=== PATIENT | female | born 1965 | race Caucasian/White ===

== ENCOUNTER → 2017-12-13 13:15 | Outpatient (CLI) | payer OTHER, SELFPAY ==
--- NOTE | 2017-12-10 | IMM_PTH ---
PATIENT: LINDA BUSH LOC: [facility] U#:[id number] AGE/SX: 60/F ROOM: RE12/13/[address]: Dr. Perico Mccarty MD : 1965 BED: DIS: SPEC #: [id number] RECD: 12/14/17 14:10 STATUS: LAURIE REQ #: [id number] JAYCEE: 12/10/17 00:[address]: Perico Mccarty DEPT: IMMUNOHISTOCHEMISTRY RECD BY: Crissy Palacios ENTERED: 12/14/17 14:11 SP TYPE: IMMUNO OTHR DR: Dr. Charlie Farah MD Tissues: Stomach, NOS Procedures: H Pylori (initial) PHYSICIAN & INSTITUTION [place] [address] SPECIMEN INFORMATION: Tissue Source: Antral biopsy Clinical Info: Z79.899, Z12.11, K21.9 Specimen Number: [id number] CPT code: 18715 METHODOLOGY: Deparaffinized sections of prefer/formalin-fixed tissue or PAP/DQ stained slides are incubated with monoclonal/polyclonal antibodies/oligonucleotide probes. Localization is made via biotin free immunoperoxidase method. Appropriate controls are performed and reacted as expected. Results on target cell population are indicated in the following table: RESULTS: ANTIBODY / CLONE RESULT H Pylori (polyclonal) negative These tests were developed and their performance characteristics determined by [facility]. They may not have been cleared or approved by the U.S. Food and Drug Administration. The FDA has determined that such clearance or approval is not necessary. INTERPRETATION: Antral biopsy: Negative for Helicobacter pylori organisms. AM:marty 12/15/17
--- NOTE | 2017-12-10 09:00 | GASB_PTH ---
PATIENT: LINDA BUSH LOC: [facility] U#:[id number] AGE/SX: 60/F ROOM: RE12/13/[address]: Dr. Perico Mccarty MD : 1965 BED: DIS: SPEC #: [id number] RECD: 12/13/17 12:11 STATUS: LAURIE ALARCONSusie #: [id number] JAYCEE: 12/10/17 09:[address]: Perico Mccarty DEPT: SURGICAL PATHOLOGY RECD BY: Crissy Palacios ENTERED: 12/13/17 15:31 SP TYPE: Gastric Bx OTHR DR: Dr. Charlie Farah MD Tissues: Gastric mucous membrane Procedures: Surgery Specimen Level IV HEADER OPERATION: EGD with biopsy PRE-OP DIAGNOSIS: Z79.899, Z12.11, K21.9 TISSUE SUBMITTED: Antral biopsy for H & H MICROSCOPIC DIAGNOSIS Gastric antrum, biopsy: Chronic active gastritis with moderate to severe chronic gastritis. AM:marty 12/14/17 COMMENT The results of immunohistochemistry for Helicobacter pylori will be reported separately ([id number]). MICROSCOPIC DESCRIPTION Slides are reviewed. GROSS DESCRIPTION Received in fixative is one container labeled with the patient's name and designated antral biopsy. The specimen consists of one irregular fragment of light avendano soft tissue that measures 0.7 x 0.3 x 0.1 cm. The specimen is totally submitted in one cassette. / SJ:rg 12/13/17 TC:2 CPT: 23031
== END ==
PROVIDERS: Visit Provider Surgery
DX: Z12.11 Encounter for screening for malignant neoplasm of colon (principal); K21.9 Gastro-esophageal reflux disease without esophagitis; Z79.899 Other long term (current) drug therapy
CPT/HCPCS: 88305; 88342

== ENCOUNTER → 2019-07-19 16:43 | Outpatient (CLI) | payer OTHER, SELFPAY ==
--- NOTE | 2019-07-19 16:51 | RAD_ITS ---
HISTORY: ARTHRITIS, PAIN, NO INJURY EXAMINATION/TECHNIQUE: XR Spine Cervical 3 Views: COMPARISON: None FINDINGS: The cervical vertebra show normal height and alignment. No fracture or acute osseous abnormality. No suspicious bony lesion. Degenerative disc disease with moderate narrowing of the C5-6 and C6-7 levels accompanied by anterior endplate spurring. The posterior elements appear intact. No spondylolisthesis. Normal C1-C2 relationship. RAD/Cerv Spine 2 or 3 Views IMPRESSION: 1. C5-6 and C6-7 degenerative disc disease and spondylosis. 2. No fracture or acute disease. at 0637 Reported and signed by: Rivas Berman MD Electronically Signed: Rivas Berman, at 6:36 EST Tel , Service support ,
--- NOTE | 2019-07-19 16:51 | RAD_ITS ---
HISTORY: ARTHRITIS, PAIN, NO INJURY EXAMINATION/TECHNIQUE: XR Spine Lumbar 3 Views: COMPARISON: None FINDINGS: The lumbar vertebra are normal in height. No fracture or acute osseous abnormality. L3-4 through L5-S1 facet joint arthritis with prominent facet hypertrophy at the L4-5 level. Degenerative minor anterolisthesis of L3 on L4. Degenerative disc disease with narrowing of the T12-L1, L3-4, and L4-5 disc levels accompanied by hypertrophic endplate spurring. Degenerative disc disease and spondylosis is greatest at the L4-5 level. The SI joints appear preserved. RAD/Lumbar Spine 2 or 3 Views IMPRESSION: 1. No fracture or acute osseous abnormality. 2. Multilevel degenerative changes, greatest at the L4-5 level. at 0633 Reported and signed by: Rivas Berman MD Electronically Signed: Rivas Berman, at 6:32 EST Tel , Service support ,
== END ==
PROVIDERS: PCP Internal Medicine; Referring Provider Anesthesiology Pain Medicine; Visit Provider Anesthesiology Pain Medicine
DX: M54.2 Cervicalgia (principal); M54.9 Dorsalgia, unspecified
CPT/HCPCS: 72040; 72100

== ENCOUNTER → 2019-11-18 14:25 | Outpatient (CLI) | payer OTHER, SELFPAY | PROVIDERS: PCP Internal Medicine | DX: Z11.59 Encounter for screening for other viral diseases (principal) | CPT/HCPCS: 87635; G2023; U0003 ==

== ENCOUNTER → 2019-12-08 | Outpatient (CLI) | payer OTHER, SELFPAY ==
[2019-12-09 08:56] LABS: SARS-COV-2 TOTAL ABS Nonreactive (Nonreactive)
== END | disposition home or self-care (01) ==
LOC: LAB 13:25
PROVIDERS: PCP Internal Medicine; Referring Provider Nurse Practitioner Adult Health; Visit Provider Nurse Practitioner Adult Health
DX: R68.89 Other general symptoms and signs (principal)
CPT/HCPCS: 86769; G2023

== ENCOUNTER 2020-01-12 12:30 | Outpatient (RCR) | payer OTHER, SELFPAY ==
--- NOTE | 2019-12-20 17:41 | HP.PTEVAL_ITS ---
Patient's Visit Information LINDA BUSH is a 54 year old F referred to Physical Therapy by Dr. Elvia Bowers MD with a diagnosis of NECK PAIN AND BACK PAIN. Date of Evaluation: 12/20/19 Physical Therapist: Tyrese Fofana PT, Cert MDT, OCS - Visit Plan Frequency: 2x /Week Duration: 4 Weeks Plan: PT INTERVENTIONS CERVICAL POSTURAL EX'S,DLS ,LE FLEXABLITY /STRENGTHENING,MODALTIES NEEDED - Subjective This 54 y/o female presents to physical therapy with neck and back pain . Patient has has had neck and back pain several years . Patient has been diagnosed with lupus 23 ys old. Patient over the years has developed arthritic pain in joints and spine. Patient has seen Dr Rosenthal in [facility] for pain management. Patient has had lumbar and cervical injections. Dr recommended PT. Patient takes antinflammatory daily,lupus MEDS. Patient had xrays cervical and lumbar DDD.Patient cervical pain base of neck with tightness and stiffness. Aggraveting factors turning ,affects Sleeping. Denies tinnitus/nausea/RIVERA. Alleviating factors rest MEDS. Location symmtrical LBP.Patient aggraveting standing,lifting,walking,extended sitting. Alleviating MEDS. C/O parathesia/tingling legs. Coughing/sneezing -. Bowel/bladder-. Difficulty with stairs desecnding. SOCAIL: single. VOCATION: retired - Pain Bilateral Neck Pain Intensity (Out of 10): 3 Pain Intensity Range: 10 Left Back Pain Intensity (Out of 10): 6 Pain Intensity Range: 10 - Objective POSTURE: mild foward posture bilateral varus. GAIT: reciprocal pattern mod varus knees. PALAPTION: tender L-S,SI upper trap/levator. AROM: BUE WFL. MMT: BUE grossly 4/5,shoulders 4-/5. CERVICAL ROM: flexion min loss,extension mod loss,rotation /lateral flexion min/mod loss. LUMBAR ROM; flexion min loss,extension mod loss,side glides andre/mod loss. FLEXABLITY: hams mild tight - Special Tests C/S Radiculapathy - Left Upper limb tension test: Negative C/S Radiculapathy - Right Upper limb tension test: Negative C/S Radiculapathy - Left Spurlings: Positive C/S Radiculapathy - Right Spurlings: Positive C/S Radiculapathy - Left Cervical distraction: Negative C/S Radiculapathy - Right Cervical distraction: Negative Sharp Giorgio: Negative Vertebral Artery Test: Negative Alar Ligament Test: Negative L/S Slump test left side: Negative L/S Slump test right side: Negative L/S Left Straight Leg Raise: Negative L/S Right Straight Leg Raise: Negative - Goals Goal 1:: Patient to be I with HEP Goal Time Frame: 4-6 Weeks Goal 2:: Patient to decrease cervical and lumbar pain by 50% or > to improve function Goal Time Frame: 4-6 Weeks Goal 3:: Patient to improve cervical and lumbar ROM for function of recovery Goal Time Frame: 4-6 Weeks Goal 4:: Patient to improve posture for ADLS' Goal Time Frame: 4-6 Weeks Goal 5:: Patient to improve back owestry score by 5 points or > to improve function/OL Goal Time Frame: 4-6 Weeks - Rehabilitation Potential Physical Therapy Diagnosis: This patient has comorbities to contribute to patients condition with lupus along with cervical and lumbar pain with decrease ROM ,strength with decrease ablity to walk and stand extended distances thus benifit from skilled PT Rehabilitation Potential: Good - Anticipated Interventions Thank you for the opportunity to evaluate your patient. For Medicare and Medicare HMO plans, please review the plan of care and approve it. It will need to be FAXED BACK to us at [phone] for Medicare purposes. For Medicare only, by signing this I certify the plan of care. Please let me know if there are questions or concerns regarding this plan of care. Physician Signature: Date:
--- NOTE | 2020-01-12 13:11 | HP.PTDCSUM ---
It has been my pleasure to treat LINDA BUSH referred by Dr. Elvia Bowers MD, with the diagnosis of NECK PAIN AND BACK PAIN for a total of 9 visit(s). Discharge Date: 01/12/20 Please see the following information for a summary of their discharge status. Subjective: Plan to do MRI 01/23 .Plan to do everything on own. Also has TENS unit Bilateral Neck Pain Intensity (Out of 10): 3 Left Back Pain Intensity (Out of 10): 4 % Improvement: 40 Objective/Function: POSTURE: mild foward postue. AROM: BUE WFL. MMT: BUE 4/5. CERVICAL ROM: flexion min loss,lateral flexion min loss,rotation min loss,extension min loss. LUMBAR ROM: flexion min loss extension mod loss ,kip glides min loss. MMT: QUADS/HAMS/HIP 4/5 ,ANKLE 4/5 Goal 1:: Patient to be I with HEP Goal Progress: Goal Met Goal 2:: Patient to decrease cervical and lumbar pain by 50% or > to improve function Goal Progress: Progressing Goal 3:: Patient to improve cervical and lumbar ROM for function of recovery Goal Progress: Progressing Goal 4:: Patient to improve posture for ADLS' Goal Progress: Progressing Goal 5:: Patient to improve back owestry score by 5 points or > to improve function/OL Goal Progress: Goal Met Plan: D/C If there are questions or concerns regarding this patient's physical therapy, please feel free to call me at [phone]. Thank you for the referral of this patient. Sincerely, Tyrese Fofana PT, Cert MDT, OCS
== END 2020-01-12 19:00 | disposition home or self-care (01) ==
LOC: PT 12:30
PROVIDERS: PCP Internal Medicine; Referring Provider Anesthesiology Pain Medicine; Visit Provider Anesthesiology Pain Medicine
DX: M54.2 Cervicalgia (principal); M54.9 Dorsalgia, unspecified
CPT/HCPCS: 97014; 97110; 97162; 97530; G0283

== ENCOUNTER → 2020-02-23 | Outpatient (CLI) | payer OTHER, SELFPAY | END | disposition home or self-care (01) | PROVIDERS: PCP Internal Medicine; Referring Provider Internal Medicine; Visit Provider Internal Medicine | DX: G47.33 Obstructive sleep apnea (adult) (pediatric) (principal); G47.34 Idiopathic sleep related nonobstructive alveolar hypoventilation | CPT/HCPCS: 95810 ==

== ENCOUNTER → 2020-04-02 12:28 | Outpatient (CLI) | payer OTHER, SELFPAY ==
[2020-03-27 09:11] VITALS: BMI 42.8
== END ==
PROVIDERS: PCP Internal Medicine; Visit Provider Nurse Practitioner Acute Care
DX: Z46.89 Encounter for fitting and adjustment of other specified devices (principal)

== ENCOUNTER → 2020-04-04 13:11 | Outpatient (CLI) | payer OTHER, SELFPAY ==
[2020-03-27 09:11] VITALS: BMI 42.8
--- NOTE | 2020-04-04 13:22 | CT_ITS ---
STUDY: LOW DOSE CT LUNG CANCER SCREENING REASON FOR EXAM: Female, 55 years old. Smoker for 39 years 1 pack a day. hasnt smoked for 2 years RADIATION DOSAGE (If Supplied By Facility): CTDIvol = ( 4.02 ) mGy, DLP = ( 135.92 ) mGycm TECHNIQUE: No contrast was administered. Low dose technique was utilized (average mAS-38 and kVp 120). 1.25 mm axial source images with a slice interval of 1.25-mm were reconstructed in lung windows. 2.5 mm axial source images with a slice interval of 2.5-mm were reconstructed in lung windows. 5.0 mm axial source images with a slice interval of 5.0-mm were reconstructed in soft tissue windows. Nodule measured using lung windows on PACS and/or independent workstation with automated measurement of minimum and maximum diameter. Nodule measurement reported as average diameter rounded to the nearest whole number. Growth is defined as an increase ins size of greater than 1.5 mm. COMPARISON: None. NODULES: No suspicious nodules are seen. Emphysema: Minimal emphysematous changes. Endobronchial lesion: None Aorta: Unremarkable Coronary arteries: Unremarkable Mediastinal nodes: Small benign-appearing mediastinal lymph nodes. Other chest and abdominal findings: CT/Low Dose CT Lung Screening IMPRESSION: Lung-RADS category 2 - Continue annual screening with LDCT in 12 months. IMPORTANT NOTES FOR USE: ACR Lung-RADS Version 1.0 Assessment Categories Release Date: September 25, 2013 Category: Coded 0-4 bases on nodule(s) with highest degree of suspicion. Negative screen is defined as categories 1 and 2; a positive screen is defined as categories 3 and 4. Category 3 and 4A nodules that are unchanged on interval CT should be coded as category 2, and individuals returned to screening in 12 months. Category 4X: Category 3 or 4 nodules with additional imaging findings that increase the suspicion of lung cancer, such as spiculation, GGN that doubles in size in 1 year, enlarged lymph notes, etc. Category Modifiers: S (significant finding unrelated to lung cancer) and C (prior history of treated lung cancer) may be added to the 0-4 Lung-RADS Electronically Signed: Sal Nova, at 14:59 EST , Service support ,
== END ==
PROVIDERS: PCP Internal Medicine; Referring Provider Nurse Practitioner Acute Care; Visit Provider Nurse Practitioner Acute Care
DX: F17.210 Nicotine dependence, cigarettes, uncomplicated (principal); Z12.2 Encounter for screening for malignant neoplasm of respiratory organs
CPT/HCPCS: G0297

== ENCOUNTER → 2020-05-16 11:00 | Outpatient (CLI) | payer OTHER, SELFPAY ==
[2020-05-08 10:23] VITALS: BMI 42.8
== END ==
PROVIDERS: PCP Internal Medicine; Visit Provider Nurse Practitioner Acute Care
DX: G47.33 Obstructive sleep apnea (adult) (pediatric) (principal)
CPT/HCPCS: 98960; G0463

== ENCOUNTER → 2020-07-30 08:28 | Outpatient (CLI) | payer OTHER, SELFPAY ==
[2020-07-02 10:14] VITALS: BMI 44.4
--- NOTE | 2020-07-30 13:44 | PFTCOMP_ITS ---
COMPLETE PULMONARY FUNCTION TEST INTERPRETATION Brief HPI: Patient is a 55 year old female, currently under the care of Dr. Rose, who presents to [facility] for complete pulmonary function tests secondary to diagnosis of tobacco abuse. Respiratory therapist reports good effort and reproducible results. Interpretation: Forced expiration spirometry shows no large airways obstructive ventilatory defect with an FEV1 of 80% predicted. There is no significant bronchodilator res ponse by strict ATS criteria. Spirograms are of good quality and plateau normally. The respiratory flow volume loop shows a normal pattern. Lung volumes by body plethysmography show a mildly decreased total lung capacity at 4.62 L, 83% predicted. All other lung volumes are within normal limits. Diffusion capacity by carbon monoxide is decreased at 66% predicted. The airway resistance is elevated. No previous pulmonary function tests were available for review. Impression: Mild restrictive ventilatory defect with a disproportionate reduction in diffusion capacity
== END ==
PROVIDERS: PCP Internal Medicine; Referring Provider Internal Medicine Critical Care Medicine; Visit Provider Internal Medicine Critical Care Medicine
DX: F17.211 Nicotine dependence, cigarettes, in remission (principal)
CPT/HCPCS: 94060; 94726; 94729

== ENCOUNTER → 2020-07-31 12:14 | Outpatient (CLI) | payer OTHER, SELFPAY ==
[2020-07-02 10:14] VITALS: BMI 44.4
[2020-07-31 12:52] VITALS: PULSE 102; PULSE 108; PULSE 113; PULSE 75; PULSE 80; O2SAT 89; O2SAT 90; O2SAT 91; O2SAT 94; O2SAT 95
--- NOTE | 2020-07-31 14:04 | PCM.PSN.6M ---
PSN 6 Minute Walk Test - 6 Minute Walk Test 6 Minute Walk Test: 6 Minute Walk Test PSN:6-Minute Walk Test Start: 07/31/20 12:52 Freq: Status: Active Protocol: RESP.6MINW Document 07/31/20 12:52 [facility] (Rec: 07/31/20 12:55 [facility] [id number]) 6 Minute Walk Test Date Performed 07/31/20 Time Performed 12:30 Height 5 ft 7 in Weight: 127.006 kg Weight in Pounds 280.[address]: Dr Rose Assistive device used: None Pre-test Oxygen Delivery Method Room Air Pulse Ox (%) 95 Pulse Rate (60-100 beats/min) 75 Dyspnea Nabeel Scale (0-10) 0 Exertion Nabeel Scale (6-20) 6 1st minute Oxygen Delivery Method Room Air Pulse Ox (%) 90 Pulse Rate (60-100 beats/min) 102 H 2nd minute Oxygen Delivery Method Room Air Pulse Ox (%) 91 Pulse Rate (60-100 beats/min) 108 H 3rd minute Oxygen Delivery Method Room Air Pulse Ox (%) 90 Pulse Rate (60-100 beats/min) 113 H 4th minute Oxygen Delivery Method Room Air Pulse Ox (%) 89 Pulse Rate (60-100 beats/min) 113 H 5th minute Oxygen Delivery Method Room Air Pulse Ox (%) 91 Pulse Rate (60-100 beats/min) 113 H 6th minute Oxygen Delivery Method Room Air Pulse Ox (%) 91 Pulse Rate (60-100 beats/min) 113 H Dyspnea Nabeel Scale (0-10) 2 Exertion Nabeel Scale (6-20) 11 Post-test Oxygen Delivery Method Room Air Pulse Ox (%) 94 Pulse Rate (60-100 beats/min) 80 Full Laps Walked 21 Partial Lap, Number of Tiles Walked 5 Total Distance Walked (ft) 1244 - Interpretation Interpretation: The patient was able to ambulate 1244 feet over the course of 6 minutes on room air with no assistive devices or breaks. The patient did have a significant desaturation from a baseline of 95% to as low as 89% with reflexive tachycardia. These findings are consistent with a respiratory limitation exercise tolerance. - Recommendations Recommendations: No supplemental oxygen is indicated at this time. However, patient will need to be followed closely given level of desaturation.
== END ==
PROVIDERS: PCP Internal Medicine; Referring Provider Internal Medicine Critical Care Medicine; Visit Provider Internal Medicine Critical Care Medicine
DX: F17.211 Nicotine dependence, cigarettes, in remission (principal)
CPT/HCPCS: 94618

== ENCOUNTER → 2020-08-15 11:49 | Outpatient (CLI) | payer OTHER, SELFPAY ==
[2020-08-15 11:12] VITALS: BMI 44.8
== END ==
PROVIDERS: PCP Internal Medicine; Referring Provider Nurse Practitioner Acute Care; Visit Provider Nurse Practitioner Acute Care
DX: R06.00 Dyspnea, unspecified (principal)
CPT/HCPCS: 36415; 85379

== ENCOUNTER → 2020-08-23 12:49 | Outpatient (CLI) | payer OTHER, SELFPAY ==
[2020-08-15 11:12] VITALS: BMI 44.8
--- NOTE | 2020-08-23 13:11 | ECHOCS_ITS ---
Version 2 Left Ventricle Normal LV size. Mild concentric left ventricular hypertrophy. Left ventricular systolic function is normal. The estimated ejection fraction is 60 %. Stage 1 diastolic dysfunction. No regional wall motion abnormalities noted. Right Ventricle Normal RV size. Normal systolic function. Atria Normal left atrium. Normal right atrium. Mitral Valve Normal mitral valve. Tricuspid Valve Normal tricuspid valve. Unable to estimate RV systolic pressure due to inadequate jet, pulmonary artery pressure probably normal. Aortic Valve Normal aortic valve. Pulmonic Valve Normal pulmonic valve. Great Vessels Normal aortic root. The pulmonary artery is normal size. Normal inferior vena cava. Pericardium/Pleural No pericardial effusion. MMode/2D Measurements & Calculations LVIDd: 5.2 cm IVSd: 1.4 cm Ao root diam: 2.8 cm LVIDs: 2.7 cm LVPWd: 1.2 cm RVDd: 3.5 cm FS: 47.0 % LAV(MOD-bp): 38.7 ml LVAd ap4: 31.2 cm2 SV(MOD-sp4): 64.4 ml LAV(MOD-bp) Indexed: 16.5 ml/m2 EDV(MOD-sp4): 96.6 ml LAV(MOD-sp2): 28.4 ml EDV(sp4-el): 97.0 ml LAV(MOD-sp4): 44.9 ml LVAs ap4: 15.9 cm2 ESV(MOD-sp4): 32.2 ml ESV(sp4-el): 31.4 ml EF(MOD-sp4): 66.7 % EF(sp4-el): 67.6 % SV(sp4-el): 65.6 ml LA dimension(2D): 3.5 cm LA A4 area: 17.5 cm2 RA A4 area: 13.3 cm2 Doppler Measurements & Calculations MV E max oj: 74.4 cm/sec Lat Peak E' Oj: 10.1 cm/sec Med Peak E' Oj: 6.6 cm/sec MV A max oj: 89.8 cm/sec E/E' lat: 7.3 E/E' med: 11.2 MV E/A: 0.83 Ao V2 max: 168.9 cm/sec LV V1 max: 141.3 cm/sec PA V2 max: 112.2 cm/sec Ao max P.4 mmHg LV V1 max P.0 mmHg Ao V2 mean: 117.8 cm/sec Ao mean P.1 mmHg Ao V2 VTI: 32.7 cm ECHO/Echo Complete W/ Contrast Interpretation Summary Normal LV size. Mild concentric left ventricular hypertrophy. Left ventricular systolic function is normal. The estimated ejection fraction is 60 %. Stage 1 diastolic dysfunction. Contrast injection was performed. Ordering Physician: Patricia Costa Referring Physician: Patricia Costa
== END ==
PROVIDERS: PCP Internal Medicine; Referring Provider Nurse Practitioner Acute Care; Visit Provider Nurse Practitioner Acute Care
DX: R06.00 Dyspnea, unspecified (principal); R06.02 Shortness of breath
CPT/HCPCS: 93306; Q9957; A4216; C8929

== ENCOUNTER 2021-01-26 15:09 | Emergency (ER) | payer OTHER, SELFPAY ==
[2021-01-26 15:10] VITALS: BP 167/70; PULSE 93; RESP 16; TEMP 36; O2SAT 95; BMI 45.4
[2021-01-26 15:30] LABS: Bacteria 0 SEEN /hpf (None Seen)
--- NOTE | 2021-01-26 15:30 | EDS_ITS ---
HPI History of Present Illness Chief Complaint: Flank Pain Narrative Narrative: 55-year-old female presenting with right lower back pain. She states this started last night and came out of nowhere. She describes it as sharp and feels like it radiates into the right gluteal region. She denies any trauma. No loss of bladder or bowel control. Patient has no urinary complaints. Patient states he has no history of kidney stones in the past with exception of a recent CT done 12/02/2020 which she had for screening for uterine cancer which showed a small punctate stone in the right kidney. Patient does not describe any hematuria or dysuria. Patient has no nausea. She is not having trouble finding position of comfort. [facility] Medical History (Updated 01/26/21 @ 17:[address] Mehrdad Perry DO) Bronchitis History of trigger finger Lupus Sleep apnea Thyroid disorder Home Medications cholecalciferol (vitamin D3) 125 mcg (5,000 unit) capsule 125 mcg PO DAILY 03/27/20 [History Last Taken Unknown] diclofenac sodium 75 mg tablet,delayed release 75 mg PO BID 03/27/20 [History Last Taken Unknown] folic acid 1 mg tablet 1 mg PO BID tab 03/27/20 [History Last Taken Unknown] hydroxychloroquine 200 mg tablet 200 mg PO DAILY 03/27/20 [History Last Taken Unknown] lansoprazole 30 mg capsule,delayed release 30 mg PO DAILY 03/27/20 [History Last Taken Unknown] levothyroxine 75 mcg tablet 75 mcg PO DAILY 03/27/20 [History Last Taken Unknown] losartan 50 mg tablet 50 mg PO DAILY 03/27/20 [History Last Taken Unknown] cbwaofvc-tiabjod-evwz-lutein tablet tab PO 03/27/20 [History Last Taken Unknown] omega-3 fatty acids 1,000 mg capsule 1,000 mg PO BID 03/27/20 [History Last Taken Unknown] albuterol sulfate 90 mcg/actuation aerosol inhaler 2 puff INHALATION Q4H PRN #18 g 05/08/20 [Rx Last Taken Unknown] hydrocodone-acetaminophen 1 tab PO Q6H PRN PRN 3 Days #10 tablet 01/26/21 [Rx Last Taken Unknown] promethazine 12.5 mg PO TID PRN #14 tab 01/26/21 [Rx Last Taken Unknown] Allergy/AdvReac Type Severity Reaction Status Date / Time azithromycin AdvReac Mild Abdominal Verified 01/26/21 15:12 [From Zithromax Z-Jose] cramping lisinopril AdvReac Mild Sleepy Verified 01/26/21 15:12 Family History Sister Breast cancer Surgical History History of carpal tunnel release History of cholecystectomy Social History Smoking Status: Former smoker how long ago did patient quit smokin alcohol intake: never substance use type: does not use ROS ROS ED Constitutional Constitutional ED: Denies chills or fever(s) Eyes Eyes: Denies blurry vision or diplopia ENT ENT ED: Denies rhinorrhea or sore throat Cardiovascular Cardiovascular: Denies chest pain or palpitations Respiratory/Chest Respiratory/Chest: Denies cough, dyspnea or sputum Gastrointestinal Gastrointestinal: Denies abdominal pain, constipation, diarrhea, nausea or vomiting Genitourinary Genitourinary ED: Denies hematuria Musculoskeletal Musculoskeletal: Reports back pain; Denies arthralgias or myalgias Integumentary Denies abscess or rash Neurologic Neurologic: Denies headache(s) or paresthesias EXAM Physical Exam Const Vital Signs: 01/26/21 15:10 01/26/21 17:06 01/26/21 17:10 Temperature 96.8 F L Temperature Source Temporal Pulse Rate 93 81 Respiratory Rate 16 14 14 Blood Pressure 167/70 H 151/72 H Blood Pressure Mean 102 Pulse Ox 95 98 Oxygen Delivery Method Room Air Positive well nourished General Appearance ED: NAD HEENT Reports moist mucous membranes Negative for trauma Eyes PERRL and EOMs intact bilaterally Resp normal respiratory effort and clear to auscultation bilaterally Cardio regular rate and regular rhythm GI normal to inspection, nondistended, normoactive bowel sounds Back/Spine no CVA tenderness Back/Spine Narrative: Right lumbar paraspinal muscular tenderness. Neuro oriented x3 and CN's II-XII intact bilaterally Sensorium / Orientation: alert Motor Exam: strength 5/5 throughout Psych mental status grossly normal Skin no rashes or lesions noted and no wounds MDM MDM MDM Narrative Medical decision making narrative: Patient presenting with right lower back pain. Patient had recent CT which showed a 2 mm kidney stone which is nonobstructing. I did check a urinalysis which is negative for infection and there is a small amount of blood here. Given her flank pain I did not want to reimage her. Her renal function is normal. I will start her on pain medication and Zofran for home. She will be given follow-up with urology. She is counseled on return precautions. It is possible that this could be musculoskeletal again but the patient just recently had a CT which showed a nonobstructing stone on the right and this is likely the cause of her pain. Impression: 1. 2 mm right kidney stone Lab Data Attestation: I reviewed the patient's lab results. Labs: Laboratory Results - last 24 hr 01/26/21 01/26/21 15:20 15:35 Sodium 142 Potassium 3.3 L Chloride 108 H Carbon Dioxide 29.0 Anion Gap 5 BUN 11 Creatinine 0.68 Estim Creat Clear Calc 90.90 Est GFR (MDRD) Af Amer 116 Est GFR (MDRD) Non-Af 96 BUN/Creatinine Ratio 16.2 Glucose 130 H Calcium 9.1 Urine Color Yellow Urine Clarity Cloudy Urine pH 5.0 Ur Specific [place] 1.020 Urine Protein 100 H Urine Glucose (UA) Normal Urine Ketones Negative Urine Occult Blood Negative Urine Nitrite Negative Urine Bilirubin Negative Urine Urobilinogen Normal Ur Leukocyte Esterase 25 H Urine RBC 0-5 SEEN Urine WBC 0-5 SEEN Ur Squamous Epith Cells 0-5 SEEN Urine Bacteria 0 SEEN Hyaline Casts 0-5 SEEN Urine Mucus 1+ Discharge Plan Triage Chief Complaint: Flank Pain ED Provider: Mehrdad Perry Dx/Rx/DC Orders Instructions: ED Kidney Stone w/ Colic Prescriptions: New hydrocodone-acetaminophen 5-325 mg tablet 1 tab PO Q6H PRN PRN (Reason: Pain) 3 Days Qty: 10 RF: 0 promethazine 12.5 mg tablet 12.5 mg PO TID PRN (Reason: nausea and vomiting) Qty: 14 RF: 0 No Action hydroxychloroquine [Plaquenil] 200 mg tablet 200 mg PO DAILY RF: 0 diclofenac sodium 75 mg tablet,delayed release (DR/EC) 75 mg PO BID RF: 0 losartan 50 mg tablet 50 mg PO DAILY RF: 0 levothyroxine [Synthroid] 75 mcg tablet 75 mcg PO DAILY RF: 0 lansoprazole [Prevacid] 30 mg capsule,delayed release(DR/EC) 30 mg PO DAILY RF: 0 nftjbyaq-spzpglz-jijt-lutein Tablet PO RF: 0 cholecalciferol (vitamin D3) 125 mcg (5,000 unit) capsule 125 mcg PO DAILY RF: 0 omega-3 fatty acids 1,000 mg capsule 1,000 mg PO BID RF: 0 folic acid 1 mg tablet 1 mg PO BID RF: 0 albuterol sulfate [Ventolin HFA] 90 mcg/actuation HFA aerosol inhaler 2 puff INHALATION Q4H PRN (Reason: shortness of breath or wheezing) Qty: 18 RF: 6 Primary Care Provider: Ce Hollins Referrals: Ce Hollins MD [Primary Care Provider] - Silver Black MD [STAFF PHYSICIAN] - As soon as possible Disposition Disposition: Home, Self Care Discharge Date/Time: 01/26/21 17:37
[2021-01-26 15:31] LABS: Color, Urine Yellow (Yellow); Glucose, Dipstick Normal (Normal); Ketone-Dipstick Negative (Negative); Leukocyte Esterase-Dipstick 25 /ul (Negative); Nitrite-Dipstick Negative (Negative); Occult Blood-Urine Negative /ul (Negative); Protein-Dipstick 100 mg/dl (Negative); Urine Bilirubin Dipstick Negative (Negative); Urine Clarity Cloudy (Clear); Urine Urobilinogen Normal (Normal)
[2021-01-26] MEDS: Ketorolac 15 MG/ML Vial IV (15:46)
[2021-01-26 16:05] LABS: Anion Gap 5 (5-15); BUN 11 mg/dL (7-18); BUN/Creat Ratio 16.2 RATIO (10-20); Calcium,Total 9.1 mg/dL (8.5-10.1); Chloride 108 mmol/L (98-107); Creatinine, Serum 0.68 mg/dL (0.55-1.02); EST Glomerular Filtration Rate 96 mL/min (>60); Est Glom Filt Rate - Afr Amer 116 mL/min (>60); Glucose 130 mg/dL (74-106); Potassium 3.3 mmol/L (3.5-5.1); Sodium Level 142 mmol/L (136-145)
[2021-01-26 16:20] LABS: Squamous Epithelial Cells - UA 0-5 SEEN /hpf (5-10)
[2021-01-26 16:21] LABS: Hyaline Cast 0-5 SEEN /lpf (0-5)
[2021-01-26 16:24] LABS: Mucous, Urine 1+ /hpf (<or=2+); Red Blood Cells-Urine 0-5 SEEN /hpf (0-5); White Blood Cells 0-5 SEEN /hpf (0-5)
[2021-01-26 17:06] VITALS: BP 151/72; PULSE 81; RESP 14; O2SAT 98
[2021-01-26 17:10] VITALS: RESP 14
== END 2021-01-26 17:37 | disposition home or self-care (01) ==
PROVIDERS: Emergency Provider Student in an Organized Health Care Education/Training Program; PCP Internal Medicine
DX: N20.0 Calculus of kidney (principal); Z87.891 Personal history of nicotine dependence
CPT/HCPCS: 80048; 81001; 96374; 99283; A4216

== ENCOUNTER → 2021-04-04 12:51 | Outpatient (CLI) | payer OTHER, SELFPAY ==
--- NOTE | 2021-04-04 12:55 | CT_ITS ---
STUDY: LOW DOSE CT LUNG CANCER SCREENING REASON FOR EXAM: Female, 56 years old. Smoker and gt; 40 pack years quit 2017 RADIATION DOSAGE (If Supplied By Facility): CTDIvol = ( 4.02 ) mGy, DLP = ( 129.38 ) mGycm TECHNIQUE: No contrast was administered. Low dose technique was utilized (average mAS-38 and kVp 120). 1.25 mm axial source images with a slice interval of 1.25-mm were reconstructed in lung windows. 2.5 mm axial source images with a slice interval of 2.5-mm were reconstructed in lung windows. 5.0 mm axial source images with a slice interval of 5.0-mm were reconstructed in soft tissue windows. Nodule measured using lung windows on PACS and/or independent workstation with automated measurement of minimum and maximum diameter. Nodule measurement reported as average diameter rounded to the nearest whole number. Growth is defined as an increase ins size of greater than 1.5 mm. COMPARISON: Comparison is made with prior study dated 04/04/2020. NODULES: No suspicious nodules are seen. Emphysema: Minimal emphysematous changes. Stable linear scarring in the lateral aspect of the left lung base. Endobronchial lesion: None Aorta: Unremarkable. Coronary arteries: Unremarkable. Heart: Unremarkable Pulmonary artery: Unremarkable Mediastinal nodes: Small benign-appearing mediastinal lymph nodes Other chest and abdominal findings: CT/Low Dose CT Lung Screening IMPRESSION: Lung-RADS category 2 - Continue annual screening with LDCT in 12 months. IMPORTANT NOTES FOR USE: ACR Lung-RADS Version 1.1 Assessment Categories Release Date: 2018 Category: Coded 0-4 bases on nodule(s) with highest degree of suspicion. Negative screen is defined as categories 1 and 2; a positive screen is defined as categories 3 and 4. Category 3 and 4A nodules that are unchanged on interval CT should be coded as category 2, and individuals returned to screening in 12 months. Category 4X: Category 3 or 4 nodules with additional imaging findings that increase the suspicion of lung cancer, such as spiculation, GGN that doubles in size in 1 year, enlarged lymph notes, etc. Category Modifiers: S (significant finding unrelated to lung cancer) Electronically Signed: Sal Nova MD at 15:05 EDT , Service support ,
== END ==
PROVIDERS: PCP Internal Medicine; Referring Provider Nurse Practitioner Acute Care; Visit Provider Nurse Practitioner Acute Care
DX: F17.200 Nicotine dependence, unspecified, uncomplicated (principal); Z87.891 Personal history of nicotine dependence
CPT/HCPCS: 71271

== ENCOUNTER → 2022-04-06 | Outpatient (CLI) | payer OTHER, SELFPAY ==
--- NOTE | 2022-04-06 15:41 | CT_ITS ---
STUDY: LOW DOSE CT LUNG CANCER SCREENING REASON FOR EXAM: Female, 57 years old, prior smoker, quit 4 years ago, 1 pack a day for 41 years, long [employer] from [id number]. RADIATION DOSAGE (If Supplied By Facility): CTDIvol = ( 3.18 ) mGy, DLP = ( 100.06 ) mGycm TECHNIQUE: No contrast was administered. Low dose technique was utilized (average mAS-38 and kVp 120). 1.25 mm axial source images with a slice interval of 1.25-mm were reconstructed in lung windows. Sagittal and coronal reconstructions reviewed. COMPARISON: Low-dose chest CT from 04/04/2021. NODULES: Hyperexpanded lungs and mild centrilobular emphysematous changes again noted. No discrete pulmonary nodule, mass, consolidation or concerning opacity. Stable left lower lobe linear scarring. Airways are patent. No pneumothorax or pleural effusion. Heart normal size. No appreciable coronary arterial calcifications. No pericardial effusion. No pathologically enlarged mediastinal or hilar lymph nodes. Unremarkable esophagus. No thoracic aortic aneurysm. Partially imaged enlarged and fatty liver again noted. Stable mild skeletal degenerative changes with no acute osseous abnormality. CT/Low Dose CT Lung Screening IMPRESSION: Stable appearance of mild COPD with no discrete pulmonary nodule or concerning pulmonary opacity. Lung-RADS category 1 - Continue annual screening with LDCT in 12 months. IMPORTANT NOTES FOR USE: ACR Lung-RADS Version 1.1 Assessment Categories Release Date: 2018 Category: Coded 0-4 bases on nodule(s) with highest degree of suspicion. Negative screen is defined as categories 1 and 2; a positive screen is defined as categories 3 and 4. Category 3 and 4A nodules that are unchanged on interval CT should be coded as category 2, and individuals returned to screening in 12 months. Category 4X: Category 3 or 4 nodules with additional imaging findings that increase the suspicion of lung cancer, such as spiculation, GGN that doubles in size in 1 year, enlarged lymph notes, etc. Category Modifiers: S (significant finding unrelated to lung cancer) Electronically Signed: William Gibson MD at 5:10 EST ,
== END | disposition home or self-care (01) ==
LOC: CT 15:40
PROVIDERS: PCP Internal Medicine; Referring Provider Nurse Practitioner Acute Care; Visit Provider Nurse Practitioner Acute Care
DX: Z87.891 Personal history of nicotine dependence (principal)
CPT/HCPCS: 71271

== ENCOUNTER → 2023-04-13 | Outpatient (CLI) | payer OTHER, SELFPAY ==
--- NOTE | 2023-04-13 08:23 | CT_ITS ---
STUDY: LOW DOSE CT LUNG CANCER SCREENING REASON FOR EXAM: Female, 58 years old. h/o Tobacco Dependency. Former smoker. The patient smoked 1 pack per day for 38 years. RADIATION DOSAGE (If Supplied By Facility): CTDIvol = ( 4.02 ) mGy, DLP = ( 140.94 ) mGycm TECHNIQUE: No contrast was administered. Low dose technique was utilized (average mAS-38 and kVp 120). 1.25 mm axial source images with a slice interval of 1.25-mm were reconstructed in lung windows. 2.5 mm axial source images with a slice interval of 2.5-mm were reconstructed in lung windows. 5.0 mm axial source images with a slice interval of 5.0-mm were reconstructed in soft tissue windows. COMPARISON: Comparison is made with prior study dated April 06, 2022. NODULES: No suspicious nodule is seen. Emphysema: Mild linear scarring at the lung bases. Endobronchial lesion: None Aorta: Unremarkable. CORONARY ARTERIES: Coronary artery calcification is not seen. Heart: Unremarkable Pulmonary artery: Unremarkable Mediastinal nodes: Other chest and abdominal findings: CT/Low Dose CT Lung Screening IMPRESSION: Lung-RADS category 2 - Continue annual screening with LDCT in 12 months. IMPORTANT NOTES FOR USE: ACR Lung-RADS Version 1.1 Assessment Categories Release Date: 2018 Category: Coded 0-4 bases on nodule(s) with highest degree of suspicion. Negative screen is defined as categories 1 and 2; a positive screen is defined as categories 3 and 4. Category 3 and 4A nodules that are unchanged on interval CT should be coded as category 2, and individuals returned to screening in 12 months. Category 4X: Category 3 or 4 nodules with additional imaging findings that increase the suspicion of lung cancer, such as spiculation, GGN that doubles in size in 1 year, enlarged lymph notes, etc. Category Modifiers: S (significant finding unrelated to lung cancer) Electronically Signed: Sal Nova MD at 13:31 EST ,
== END | disposition home or self-care (01) ==
LOC: CT 08:23
PROVIDERS: PCP Internal Medicine; Referring Provider Internal Medicine Critical Care Medicine; Visit Provider Internal Medicine Critical Care Medicine
DX: F17.211 Nicotine dependence, cigarettes, in remission (principal)
CPT/HCPCS: 71271

== ENCOUNTER → 2023-09-13 | Outpatient (CLI) | payer OTHER, SELFPAY ==
--- NOTE | 2023-09-13 14:50 | RAD_ITS ---
STUDY: X-RAY - LUMBAR SPINE REASON FOR EXAM: Female, 58 years old. Intervertebral disc disorders with radiculopathy, lumbar region TECHNIQUE: 3 view(s) of the lumbar spine were obtained. COMPARISON: None FINDINGS: Normal lumbar lordosis. 6 lumbar type vertebral bodies. There is no substantial scoliosis. There is a normal alignment of the vertebrae. Moderate loss of height wedging deformity of the L4 vertebral body consistent with a moderate compression fracture. This may be acute, subacute, or chronic and clinical correlation MRI may be useful. There is multi-level degenerative disc disease with multi-level disc space narrowing. There is multilevel facet hypertrophy in the lower lumbar spine. The soft tissue structures are unremarkable. RAD/Lumbar Spine 2 or 3 Views IMPRESSION: 1. 6 lumbar type vertebral bodies. 2. New mild compression fracture of L4 which may be acute, subacute, chronic and clinical correlation and MRI may be useful. 3. Diffuse degenerative disc disease. Again, MRI may be useful. Electronically Signed: Perico Gutierrez MD at 8:55 EDT ,
== END | disposition home or self-care (01) ==
LOC: RAD 14:42
PROVIDERS: PCP Internal Medicine; Referring Provider Anesthesiology Pain Medicine; Visit Provider Anesthesiology Pain Medicine
DX: M51.37 Other intervertebral disc degeneration, lumbosacral region (principal); M54.16 Radiculopathy, lumbar region
CPT/HCPCS: 72100

== ENCOUNTER → 2024-04-17 | Outpatient (CLI) | payer OTHER, SELFPAY ==
--- NOTE | 2024-04-17 14:25 | CT_ITS ---
EXAM: CT CHEST, LUNG CANCER SCREENING WITHOUT INTRAVENOUS CONTRAST CLINICAL INDICATION: smoker TECHNIQUE: Helically acquired images were obtained of the chest without intravenous contrast using low dose (LDCT) lung cancer screening protocol. This CT exam was performed using one or more of the following dose reduction techniques: automated exposure control, adjustment of the mA and/or kV according to patient size, and/or use of iterative reconstruction technique. COMPARISON: 04/13/2023 FINDINGS: LUNGS AND PLEURAL SPACES: There is minimal scarring in the left lung base. No mass. No pleural effusion or thickening. No pneumothorax. HEART: Unremarkable. Heart size is normal. No pericardial effusion. No significant coronary artery calcifications. MEDIASTINUM: Unremarkable. No mediastinal or hilar adenopathy. Esophagus is unremarkable. No hiatal hernia. THYROID: Unremarkable. No thyroid lesions. BONES/JOINTS: Unremarkable. No suspicious lytic or blastic abnormality. VASCULATURE: Unremarkable. Thoracic aorta is non-dilated. LYMPH NODES: Unremarkable. No enlarged lymph nodes. CT/Low Dose CT Lung Screening IMPRESSION: No evidence of pulmonary nodules. There is minimal left basilar scarring. There has been no change from the reference exam. Lung-RADS score: 1 - Recommend continued annual screening with a low-dose CT (LDCT) in 12 months. Electronically Signed: Enrique Lay MD at 0:00 EST ,
== END | disposition home or self-care (01) ==
LOC: CT 14:20
PROVIDERS: PCP Internal Medicine; Referring Provider Nurse Practitioner Acute Care; Visit Provider Nurse Practitioner Acute Care
DX: F17.210 Nicotine dependence, cigarettes, uncomplicated (principal)
CPT/HCPCS: 71271

== ENCOUNTER → 2024-06-05 | Outpatient (CLI) | payer OTHER, SELFPAY ==
--- NOTE | 2024-06-05 11:00 | MRI_ITS ---
STUDY: MRI CERVICAL SPINE WITHOUT CONTRAST REASON FOR EXAM: Female, 59 years old. Neck pain and stiffness. Trouble turning head to left. Radiculopathy. TECHNIQUE: Standardized fat and water weighted pulse sequences were obtained in the sagittal and axial planes. COMPARISON: Cervical spine radiographs 07/19/2019. FINDINGS: Normal foramen magnum and brainstem-cervical cord junction. Normal craniovertebral junction. Normal anterior atlantoaxial articulation. Normal odontoid process. Mild straightening of the C-spine curvature. No recent or remote fractures of the vertebral bodies and posterior osseous elements. No cervical degenerative inflammatory arthropathy. No malalignment of the cervical spine, craniocervical junction and cervicothoracic junction. C2-3: Normal endplates. Normal disc height, signal and morphology. Normal central canal and intervertebral neural foramina. C3-4: Normal endplates. Normal disc height, signal and morphology. Normal central canal and intervertebral neural foramina. C4-5: Normal endplates. Normal disc height, signal and morphology. Normal central canal and intervertebral neural foramina. C5-6: Normal endplates. Moderate disc space height narrowing. Anterior posterior spurs. Normal central canal and left intervertebral neuroforamen. Moderate stenosis of the right intervertebral neuroforamen due to prominent osteophyte arising from the right uncovertebral joint. C6-7: Normal endplates. Moderate disc space height narrowing. Anterior and posterior marginal spurs. Normal central canal and right intervertebral neuroforamen. Mild stenosis of the left intervertebral neuroforamen due to osteophyte arising from the left uncovertebral joint. C7-T1: Normal endplates. Normal disc height, signal and morphology. Normal central canal and intervertebral neural foramina. T1-T2 and T2-T3: (Sagittal only). Normal endplates. Normal disc height, signal and morphology. Normal central canal and intervertebral neuroforamina. Normal cervical cord. Normal upper thoracic spinal cord. Normal included midline brainstem and cerebellum. Normal visualized soft tissue structures. MRI/Spine Cervical (Routine) IMPRESSION: 1. Moderate stenosis of the right C5-C6 intervertebral neuroforamen due to prominent osteophyte arising from the right uncovertebral joint. 2. Mild stenosis of the left C6-C7 intervertebral neuroforamen due to small osteophyte arising from the left uncovertebral joint. 3. No MRI evidence of cervical extruded disc fragment. 4. Normal cervical spinal cord. Electronically Signed: Tee Merrill MD at 15:41 EST ,
== END | disposition home or self-care (01) ==
PROVIDERS: PCP Internal Medicine; Referring Provider Anesthesiology Pain Medicine; Visit Provider Anesthesiology Pain Medicine
DX: M54.12 Radiculopathy, cervical region (principal)
CPT/HCPCS: 72141

== ENCOUNTER 2024-10-13 20:51 | Emergency (ER) | payer OTHER, MEDICARE, SELFPAY ==
[2024-10-13 20:52] VITALS: BP 183/84; PULSE 105; RESP 16; TEMP 36; O2SAT 95; BMI 42.7
--- NOTE | 2024-10-13 21:04 | EX.ED.DYSGE1 ---
HPI <HENRIK Jean - Last Filed: 10/13/24 21:14> History of Present Illness Chief Complaint: Bite Narrative Narrative: 59-year-old was bit by her cat on her right hand. She has an indoor cat accidentally got outside and got in a fight with a neighborhood cat and she tried to break it up and her cat bit her right hand over the webspace between the thumb and index finger and on her forearm. She states her cat shots are up-to-date and her own personal tetanus shot is up-to-date. She denies weakness or numbness or tingling. She is right-hand dominant. [facility] <HENRIK Jean - Last Filed: 10/13/24 21:14> [facility] Medical History (Updated 10/13/24 @ 21:[address] Rajiv Ni, DO) Shingles History of trigger finger Thyroid disorder Lupus Sleep apnea Bronchitis Home Medications ?Medication ?Instructions ?Recorded ?Last Taken ?Type cholecalciferol (vitamin D3) 125 125 mcg PO DAILY 03/27/20 Unknown History mcg (5,000 unit) capsule diclofenac sodium 75 mg 75 mg PO BID 03/27/20 Unknown History tablet,delayed release folic acid 1 mg tablet 1 mg PO BID 03/27/20 Unknown History lansoprazole 30 mg capsule,delayed 30 mg PO DAILY 03/27/20 Unknown History release (Prevacid) levothyroxine 75 mcg tablet 75 mcg PO DAILY 03/27/20 Unknown History (Synthroid) zfoxfwxm-dqietop-ralh-lutein tablet tab PO 03/27/20 Unknown History omega-3 fatty acids 1,000 mg 1,000 mg PO BID 03/27/20 Unknown History capsule ezetimibe 10 mg tablet 10 mg PO DAILY 12/09/22 Unknown History albuterol sulfate 90 mcg/actuation 2 puff inhalation Q4H PRN 12/10/23 Unknown Rx aerosol inhaler (Ventolin HFA) shortness of breath or wheezing #18 grams losartan 50 mg tablet 100 mg PO DAILY 12/10/23 Unknown History hydroxychloroquine 200 mg tablet 200 mg PO QDAY 06/21/24 Unknown History (Plaquenil) hydroxychloroquine 200 mg tablet 400 mg PO QDAY 06/21/24 Unknown History (Plaquenil) amoxicillin 875 mg-potassium 1 tab PO BID 7 days #14 tabs 10/13/24 Unknown Rx clavulanate 125 mg tablet Allergy/AdvReac Type Severity Reaction Status Date / Time azithromycin (From Zithromax AdvReac Mild Abdominal Verified 10/13/24 20:52 Z-Jose) cramping lisinopril AdvReac Mild Sleepy Verified 10/13/24 20:52 Family History (Reviewed 06/21/24 @ 09:42 by Patricia Costa MAGNETIC TAPE COMPOSER OPERATOR, MAGNETIC TAPE COMPOSER OPERATOR-C) Sister Breast cancer Surgical History History of carpal tunnel release History of cholecystectomy Social History (Reviewed 06/21/24 @ 09:42 by Patricia Costa MAGNETIC TAPE COMPOSER OPERATOR, MAGNETIC TAPE COMPOSER OPERATOR-C) Smoking Status: Former smoker how long ago did patient quit smokin alcohol intake: never substance use type: does not use ROS <HENRIK Jean - Last Filed: 10/13/24 21:14> ROS ED ROS Narrative Neuro: Negative for motor/sensory dysfunction. Skin: Positive for bite. Musc: Negative for joint pain. EXAM <HENRIK Jean - Last Filed: 10/13/24 21:14> Physical Exam Narrative Exam Narrative: CONST: Patient sitting in no acute distress. EYES: Normal inspection. NECK: Normal inspection. SKIN: Several puncture wounds on right dorsal hand in the webspace between the thumb and index finger and another linear abrasion on the right distal dorsal forearm. None of the wounds are open or gaping, no bleeding. EXTREMITIES: Full range of motion of right upper extremity, normal motor and sensory function in median radial and ulnar distributions, 2+ radial pulse and brisk cap refill. NEURO: Alert and answering questions appropriately. PSYCH: Normal affect. Const Vital Signs: 10/13/24 20:52 Temperature 96.8 F L Temperature Source Temporal Pulse Rate 105 H Respiratory Rate 16 Blood Pressure 183/84 H Blood Pressure Mean 117 Pulse Ox 95 Oxygen Delivery Method Room Air <Dr. Rajiv Ni DO - Last Filed: 10/13/24 21:30> Physical Exam Const Vital Signs: 10/13/24 20:52 Temperature 96.8 F L Temperature Source Temporal Pulse Rate 105 H Respiratory Rate 16 Blood Pressure 183/84 H Blood Pressure Mean 117 Pulse Ox 95 Oxygen Delivery Method Room Air MDM <HENRIK Jean - Last Filed: 10/13/24 21:14> [facility] Narrative Medical decision making narrative: Patient has bites on her right hand and forearm from her cat. They are puncture wounds and linear abrasions. She has full range of motion and is neurovascularly intact. No indication for x-ray. Wounds were cleansed dressed with bacitracin and a bandage. She was prescribed Augmentin and given wound care instructions and signs of infection that would warrant return. She believes her tetanus is up-to-date. She was discharged in stable condition <Dr. Rajiv Ni, DO - Last Filed: 10/13/24 21:30> [facility] Treatment and Re-Evaluation :: I have personally performed a face to face assessment of the patient and have reviewed the PAT Note. I performed a substantive portion of the visit including all aspects of the following. My sotelo findings include: History: Patient presents with cat bite to her right hand and right forearm that occurred today. Patient states it was her cat. Patient states she has some mild dull pain in her hand. Patient states her last tetanus was within 5 years. Patient denies any paresthesias or weakness. Patient denies any other injuries. Exam: Vital signs are stable except for an elevated blood pressure of 183/84. Patient is afebrile. Patient is in no acute distress. Skin is warm and dry. There are puncture wounds and abrasions over the dorsal aspect of the right hand over the webspace between the thumb and index finger and radial aspect of the right forearm. There is some mild ecchymosis. There is no bony crepitance or step-off. There is good range of motion. Sensation was intact to light touch in all digits. Capillary refill was less than 2 seconds in all digits. Medical Decision Making: The wounds were cleaned and dressed with bacitracin dressing. Patient was given a dose of Augmentin here. Patient was given a prescription for Augmentin. Patient was instructed to keep the wound clean and dry. Patient was instructed to watch for signs of infection. Patient understood and was agreeable with the plan. All questions were answered. Discharge Plan Triage Chief Complaint: Bite ED Midlevel Provider: Anastasiya Comer ED Provider: Rajiv Ni Dx/Rx/DC Orders Clinical Impression: Cat bite of right hand, Thyroid disorder Instructions: ED Cat Bite Prescriptions: New amoxicillin-pot clavulanate 875-125 mg tablet 1 tab PO BID 7 Days Qty: 14 0RF No Action diclofenac sodium 75 mg tablet,delayed release (DR/EC) 75 mg PO BID levothyroxine [Synthroid] 75 mcg tablet 75 mcg PO DAILY Rx Instructions: 1 tablet Wednesday-Wednesday. 2 tablets on Wednesday lansoprazole [Prevacid] 30 mg capsule,delayed release(DR/EC) 30 mg PO DAILY hzdrlorn-xmgxbrn-iyti-lutein Tablet PO cholecalciferol (vitamin D3) 125 mcg (5,000 unit) capsule 125 mcg PO DAILY omega-3 fatty acids 1,000 mg capsule 1,000 mg PO BID folic acid 1 mg tablet 1 mg PO BID losartan 50 mg tablet 100 mg PO DAILY hydroxychloroquine [Plaquenil] 200 mg tablet 400 mg PO QDAY ezetimibe 10 mg tablet 10 mg PO DAILY albuterol sulfate [Ventolin HFA] 90 mcg/actuation HFA aerosol inhaler 2 puff INHALATION Q4H PRN (Reason: shortness of breath or wheezing) Qty: 18 6RF hydroxychloroquine [Plaquenil] 200 mg tablet 200 mg PO QDAY Primary Care Provider: Ce Hollins Referrals: Ce Hollins MD [Primary Care Provider] - Activity Restrictions/Additional Instructions: Clean area once daily with soap and water. Take all of the antibiotics as prescribed. If you develop worsening redness, swelling, pus, fever please come back for reevaluation. Print Language: Urdu Disposition Disposition: Home, Self Care
[2024-10-13] MEDS: Amox/Clavulanate 875 MG Tablet PO (21:21)
== END 2024-10-13 21:32 | disposition home or self-care (01) ==
LOC: ED 21:21
PROVIDERS: Emergency Provider Emergency Medicine; PCP Internal Medicine; Visit Provider Emergency Medicine
DX: S61.451A Open bite of right hand, initial encounter (principal); Z87.891 Personal history of nicotine dependence; E07.9 Disorder of thyroid, unspecified; S51.851A Open bite of right forearm, initial encounter; W55.01XA Bitten by cat, initial encounter
CPT/HCPCS: 99282

== ENCOUNTER → 2025-01-30 | Outpatient (CLI) | payer MEDICARE, SELFPAY | END | disposition home or self-care (01) | LOC: SL 09:33 | PROVIDERS: PCP Internal Medicine; Visit Provider Nurse Practitioner Acute Care | DX: Z00.00 Encounter for general adult medical examination without abnormal findings (principal) ==

== ENCOUNTER → 2025-02-12 | Outpatient (CLI) | payer MEDICARE, SELFPAY ==
--- NOTE | 2025-02-12 12:39 | RAD_ITS ---
PROCEDURE: SACRUM-COCCYX MIN 2 VIEWS 02/12/2025 REASON FOR EXAM: [place] PAIN TECHNIQUE: Procedure Code: RADSAC Modality: DX Procedure: SACRUM-COCCYX MIN 2 VIEWS COMPARISON: None FINDINGS: Bones: No fracture. Joints: Degenerative changes of the sacroiliac joints bilaterally worse on the left side. Degenerative changes of symphysis pubis. Other: Marked degree of disc space narrowing at the L4-L5 and L5-S1 levels. RAD/Sacrum-Coccyx min 2 Views IMPRESSION: Degenerative changes of the sacroiliac joints as well as the the lower lumbar s pine. Reading Location: [place] [id number]
== END | disposition home or self-care (01) ==
PROVIDERS: PCP Internal Medicine; Referring Provider Anesthesiology Pain Medicine; Visit Provider Anesthesiology Pain Medicine
DX: M46.1 Sacroiliitis, not elsewhere classified (principal)
CPT/HCPCS: 72220

== ENCOUNTER → 2025-04-17 | Outpatient (CLI) | payer MEDICARE, SELFPAY ==
--- NOTE | 2025-04-17 15:47 | CT_ITS ---
PROCEDURE: LOW DOSE CT LUNG SCREENING 04/17/2025 REASON FOR EXAM: SMOKING HISTORY, QUIT 2018 30+ year history cigarette use. Quit smoking, 6 years ago. TECHNIQUE: Procedure Code: [id number] Modality: CT Procedure: LOW DOSE CT LUNG SCREENING Coronal and Sagittal reconstruction series were provided. One or more dose reduction techniques were used (e.g., Automated exposure control, adjustment of the mA and/or kV according to patient size, use of iterative reconstruction technique). REFERENCE LINK: [facility] Lung-RADS RADIATION DOSE SUMMARY: CTDlvol: 4 mGy DLP: 124.4 mGycm COMPARISON: CT March 2023. FINDINGS: PULMONARY NODULES: (Only nodules >3mm are reported) Nodules described below are on series 2 unless otherwise specified. Thyroid gland: Negative. Lungs: Mild emphysematous changes. No pulmonary nodules or masses. Pleura: Negative for pleural effusion or pneumothorax. Airways: Imaged bronchi and trachea negative. Mediastinum: Negative for mediastinal mass. Lymph nodes: Negative for axillary, mediastinal or hilar adenopathy. Heart and Vasculature: Heart normal size. Negative for vascular calcifications of the thoracic aorta. Coronary Artery Calcifications: Mild vascular calcifications of the coronary arteries Upper Abdomen: Imaged portions negative Hardware: None. Bones: Mild degenerate disc and facet disease lower thoracic spine. No fractures. CT/Low Dose CT Lung Screening IMPRESSION: Mild emphysema. Coronary artery calcification (CAC) is slight Lung-RADS Category: 1 NEGATIVE. RECOMMEND 12-MONTH SCREENING LDCT. Other Significant Findings: None Reading Location: [place] [id number]
--- OUTSIDE RECORDS SUMMARY | 2025-04-17 19:31 | XMS RPT_ITS | CCD ---
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 David Chicas MD Primary Care Provider Dr. David Chicas MD Referring Provider Patricia Rivera Attending Provider Dr. Rajiv Ni DO Emergency Provider [phone] David Chicas MD Primary Care Provider Dr. Rajiv Ni DO Attending Provider Dr. David Chicas MD Referring Provider Patricia Rivera Attending Provider Dr. David Chicas MD Primary Care Physician Patricia Rivera Attending Physician Dr. Elvia Bowers MD Attending Physician [phone] Elvia Bowers MD Referring Provider DARRELL JACK Referring Unavailable DAVID CHICAS Primary Care Unavailable DAVID CHICAS Primary Care Unavailable DOBROWSKI, EDDIE J Referring Unavailable DOBROWSKI, EDDIE J Attending Unavailable GANTA, DAVID Attending Unavailable GANTA, DAVID Primary Care Unavailable GANTA, DAVID Primary Care Unavailable GANTA, DAVID Referring Unavailable OLDER, MATTIE Referring Unavailable GANTA, DAVID Primary Care Unavailable OLDER, MATTIE Attending Unavailable GANTA, DAVID Primary Care Unavailable JACK, SHAILEY Attending Unavailable GANTA, DAVID Primary Care Unavailable JACK, SHAILEY Referring Unavailable GANTA, DAVID Primary Care Unavailable GANTA, DAVID Primary Care Unavailable OLDER, MATTIE Attending Unavailable JACK, SHAILEY Referring Unavailable GANTA, DAVID Primary Care Unavailable GANTA, DAVID Primary Care Unavailable OLDER, MATTIE Attending Unavailable JACK, SHAILEY Attending Unavailable GANTA, DAVID Primary Care Unavailable JACK, SHAILEY Attending Unavailable GANTA, DAVID Primary Care Unavailable GANTA, DAVID Primary Care Unavailable SLEIK, KHALED MELOUD Referring Unavailable SLEIK, KHALED MELOUD Attending Unavailable GANTA, DAVID Primary Care Unavailable JACK, SHAILEY Referring Unavailable GANTA, DAVID Primary Care Unavailable LOUANN DAMON Attending Unavailable GANTA, DAVID Primary Care Unavailable NAJDOVSKI KEIKO Referring Unavailable DOBROWSKI, EDDIE J Attending Unavailable GANTA, DAVID Primary Care Unavailable GANTA, DAVID Primary Care Unavailable OLDER, MATTIE Attending Unavailable GANTA, DAVID Primary Care Unavailable JACK, SHAILEY Referring Unavailable JACK, SHAILEY Referring Unavailable GANTA, DAVID Primary Care Unavailable GANTA, DAVID Primary Care Unavailable OLDER, MATTIE Attending Unavailable GANTA, DAVID Primary Care Unavailable JACK, VERONIKAILEY Attending Unavailable JACK, SHAILEY Referring Unavailable GANTA, DAVID Primary Care Unavailable GANTA, DAVID Primary Care Unavailable OLDER, MATTIE Referring Unavailable GANTA, DAVID Primary Care Unavailable OLDER, MATTIE Attending Unavailable GANTA, DAVID Primary Care Unavailable DOBROWSKI, EDDIE J Referring Unavailable DOBROWSKI, EDDIE J Attending Unavailable GANTA, DAVID Referring Unavailable GANTA, DAVID Attending Unavailable GANTA, DAVID Primary Care Unavailable BasaliElvia Attending Unavailable Basali, Ayman Referring Unavailable Ganta, David Primary Care Unavailable Ganta, David Referring Unavailable Ganta, David Primary Care Unavailable Julissa ACREAGE REPORTER, Patricia Attending Unavailable Ganta, David Referring Unavailable Ganta, David Primary Care Unavailable Costa ACREAGE REPORTER, Patricia Attending Unavailable Cosat ACREAGE REPORTER, Patricia Attending Unavailable [facility], David Referring Unavailable [facility], [facility] Primary Care Unavailable [facility], David Primary Care Unavailable Julissa ACREAGE REPORTER, Patricia Attending Unavailable Julissa ACREAGE REPORTER, Patricia Referring Unavailable Rajiv Ni Attending Unavailable [facility], David Primary Care Unavailable Julissa ACREAGE REPORTER, Patricia Referring Unavailable Julissa ACREAGE REPORTER, Patricia Attending Unavailable Gan, David Primary Care Unavailable [facility], David Primary Care Unavailable Julissa ACREAGE REPORTER, Patricia Attending Unavailable [facility], [facility] Primary Care Unavailable Elvia Bowers Attending Unavailable Elvia Bowers Referring Unavailable Allergies Allergy Classification Reported Allergen(s) Allergy Type Date of Onset Reaction(s) Facility Angiotensin Converting Enzyme (MARIN) Inhibitors (3 sources) Lisinopril Drug Allergy 2 Intolerance [facility] HMG-CoA Reductase Inhibitors (statins) (3 sources) Pravastatin Drug Allergy 4 [facility] Macrolides (antibiotic) (3 sources) Azithromycin Drug Allergy 8 [facility] Work Phone: (20 sources) Azithromycin; Translations: [AZITHROMYCIN] Drug Allergy 8 Abdominal cramping [facility] Work Phone: (20 sources) Lisinopril; Translations: [LISINOPRIL] Drug Allergy 2 Intolerance [facility] (20 sources) Pravastatin; Translations: [PRAVASTATIN] Drug Allergy 4 [facility] (1 source) Azithromycin Drug Allergy 5 [facility] (1 source) Lisinopril Drug Allergy 5 [facility] Medications Current Medications Medication Drug Class(es) Dates Sig (Normalized) Sig (Original) 24 hr buPROPion hydrochloride 150 mg extended release oral tablet (20 sources) Aminoketone Start: 12-28-2024 take 1 tablet by mouth once daily buPROPion XL (WELLBUTRIN XL) 150 mg 24 hr tablet Take 1 tablet by mouth once daily. 90 tablet 1 12/28/2024 Active Start: 06-30-2024 End: 12-25-2024 take 1 tablet by mouth once daily buPROPion XL (WELLBUTRIN XL) 150 mg 24 hr tablet Take 1 tablet by mouth once daily. 90 tablet 1 07/27/2024 12/25/2024 Discontinued cefdinir 300 mg oral capsule (1 source) Cephalosporin Antibacterial Start: 06-08-2022 End: 06-15-2022 take 1 capsule by mouth twice daily cefdinir (OMNICEF) 300 mg capsule Indications: Acute otitis media, bilateral Take 1 capsule by mouth twice daily for 7 days. 14 capsule 0 06/08/2022 06/15/2022 Active Comment on above: Take 1 capsule by mo uth twice daily for 7 days. cholecalciferol 0.125 mg oral tablet (20 sources) Vitamin D Start: 04-24-2024 take 1 tablet by mouth once daily cholecalciferol (VITAMIN D3) 5,000 unit tab Indications: vitamin D deficiency Take 1 tablet by mouth once daily. 90 tablet 3 04/24/2024 Active Start: 04-19-2023 End: 04-22-2024 take 1 tablet by mouth once daily cholecalciferol (VITAMIN D3) 5,000 unit tab Indications: vitamin D deficiency Take 1 tablet by mouth once daily. 90 tablet 3 04/19/2023 04/22/2024 Discontinued Start: 05-15-2021 End: 04-17-2023 take 1 tablet by mouth once daily cholecalciferol (VITAMIN D3) 5,000 unit tab Indications: vitamin D deficiency Take 1 tablet by mouth once daily. 90 tablet 3 05/15/2021 04/21/2022 Discontinued Start: 03-27-2020 take 1 capsule by mo ut once daily Comment on above: Take 1 tablet by abimael th once daily. CPAP - Continuous Positive Airway Pressure([facility] INFORMATIONAL USE ONLY) (1 source) Start: 02-22-2025 ezetimibe 10 mg oral tablet (20 sources) Dietary Cholesterol Absorption Inhibitor Start: 07-09-2022 End: 04-24-2025 take 1 tablet by mouth once daily Start: 08-26-2021 End: 09-02-2021 take 1 tablet by mouth once daily ezetimibe (ZETIA) 10 mg tablet Take 1 tablet by mouth once daily. 90 tablet 3 09/03/2021 Active Comment on above: Take 1 tablet by abimael th once daily. fluticasone propionate 0.05 mg/actuat metered dose nasal spray (19 sources) Corticosteroid Start: 06-08-19 End: 09-15-19 take 2 spray(s) by mouth once daily fluticasone (FLONASE) 50 mcg/actuation nasal spray Indications: Sinus congestion Use 2 Sprays in each nostril once daily. Rinse mouth after use. 1 Each 0 06/08/2022 09/15/2023 Discontinued Comment on above: Use 2 Sprays in each nostril once daily. Rinse mouth after use. folic acid 1 mg oral tablet (20 sources) Start: 04-02-20 End: 01-31-20 take 2 tablets by mouth once daily folic acid 1 mg tablet Take 2 tablets by mouth once daily. 180 tablet 3 01/31/2025 Active Start: 03-27-2020 take 1 tablet by mouth twice d aily Comment on above: Take 2 tablets by mo [facility] once daily. hydroxychloroquine sulfate 2 00 mg oral tablet (20 sources) Antimalarial, Antirheumatic Agent Start: 11-14-2024 take 1 tablet by mouth twice daily Start: 06-21-2024 End: 11-14-2024 take 2 tablets by mouth once daily Hydroxychloroquine (Plaquenil) 200 mg tablet Discontinued 400 mg PO daily June 21, 2024 10:32am November 14, 2024 8:54am Start: 05-14-2023 End: 03-27-2024 take 1 tablet by mouth twice daily Hydroxychloroquine (Plaquenil) 200 mg tablet Active 200 mg PO TWICE A DAY November 14, 2024 8:54am Start: 02-25-2022 End: 01-22-2023 take 1 tablet by mouth twice daily hydrOXYchloroQUINE (PLAQUENIL) 200 mg tablet Indications: Lupus erythematosus, unspecified form Take 1 tablet by mouth twice daily. Forgot Rx when traveling, do not cancel [facility] 180 tablet 3 02/25/2022 01/22/2023 Discontinued Start: 03-27-2020 End: 11-14-2024 take 1 tablet by mouth once daily Hydroxychloroquine (Plaquenil) 200 mg tablet Discontinued 200 mg PO daily June 21, 2024 1:00am November 14, 2024 8:54am Comment on above: Take 1 tablet by abimael once daily. Forgot Rx when traveling, do not cancel [facility] Take 1 tablet by abimael twice daily. Forgot Rx when traveling, do not cancel [facility] TAKE 1 TABLET TWICE A DAY. Take 1 tablet by abimael two times a day. Forgot Rx when traveling, do not cancel [facility] lansoprazole 30 mg delayed release oral capsule (20 sources) Proton Pump Inhibitor Start: 03-27-2020 End: 03-30-2024 take 1 capsule by mouth once daily Comment on above: Take 1 capsule by mo [facility] once daily. levothyroxine sodium 0.1 mg oral tablet (20 sources) l-Thyroxine Start: 11-14-2024 take 1 tablet by mouth once daily Start: 09-17-2021 End: 07-03-2024 take 1 tablet by mouth once daily before breakfast levothyroxine (SYNTHROID) 100 mcg tablet Take 1 tablet by mouth daily before breakfast. 30 tablet 07/03/2024 Active Start: 08-26-2021 take 1 tablet by abimael once daily for thyroid dysfunction levothyroxine (LEVOXYL) 100 mcg tablet Take 1 tablet by mouth once daily. Take on empty stomach. For Thyroid. 90 tablet 3 08/26/2021 Active Start: 03-27-2020 End: 11-14-2024 Levothyroxine (Synthroid) 75 mcg tablet Discontinued 75 ug PO DAILY March 27, 2020 12:00am November 14, 2024 8:52am 1 tablet Wednesday-Wednesday. 2 tablets on Wednesday Comment on above: Take 1 tablet by abimael once daily. Take on empty stomach. For Thyroid. TAKE 1 TABLET DAILY ON AN EMPTY STOMACH FOR THYROID loratadine 10 mg oral tablet (19 sources) Start: 023 End: 024 take 1 tablet by mouth once daily loratadine (CLARITIN) 10 mg tablet Indications: Sinus congestion Take 1 tablet by mouth once daily. 30 tablet 11 06/08/2022 09/15/2023 Discontinued Comment on above: Take 1 tablet by abimael once daily. 24 hr metFORMIN hydrochloride 500 mg extended release oral tablet (20 sources) Biguanide Start: 021 End: 025 take 1 tablet by mouth once daily at breakfast metFORMIN ER (GLUCOPHAGE XR) 500 mg 24 hr tablet Indications: Metabolic syndrome Take 1 tablet by mouth daily with breakfast. Forgot Rx when traveling, do not cancel [facility] 90 tablet 3 01/31/2025 Active Comment on above: Take 1 tablet by abimael th daily with breakfast. Forgot Rx when traveling, do not cancel [facility] mometasone furoate 1 mg/ml topical cream (20 sources) Corticosteroid Start: 021 End: 023 mometasone (ELOCON) 0.1 % cream Indications: Lupus erythematosus, unspecified form Apply 1 application to affected area once daily. 120 g 3 02/26/2023 Active Comment on above: Apply 1 application to affected area once daily. Nqredfvo-Lipvvjj-Tffy -Lutein (3 sources) Start: Guacsxps-Jdwmuax-Ng on-Lutein Active TABLET PO March 27, 2020 12:00am Start: 03-27-2020 Multivit-[place] ll-Jopb-Estbbo Active TABLET PO March 26, 2020 11:00pm Ghgibioz-Hbndawa-Clde-Lutein tablet (4 sources) Start: 03-27-2020 Start: 03-27-2020 Multivit-[place] jr-Woxt-Werxcu tablet Active {tbl} PO March 27, 2020 12:00am MV with Bhr-Jkhtxdpt-Iuebwu (CENTRUM SILVER) 0.4-300-250 mg-mcg-mcg tab (20 sources) Start: 04-05-2013 take 1 tablet by mouth once daily MV with Ipx-Jryeaebf-Nmrrob (CENTRUM SILVER) 0.4-300-250 mg-mcg-mcg tab Take 1 tablet by mouth once daily. 1 tablet 0 04/05/2013 Active Comment on above: Take 1 tablet by abimael once daily. omega-3 acid ethyl esters (custodial) 1000 mg oral capsule (20 sources) Start: 04-02-2021 End: 02-25-2022 omega-3 acid ethyl esters (LOVAZA) 1 gram capsule TAKE 2 CAPSULES ONCE DAILY 180 capsule 3 02/25/2022 Active Comment on above: TAKE 2 CAPSULES ONCE DAILY Galva-3 Fatty Acids (3 sources) Start: 03-27-2020 take 1000 mg by mouth twice daily Galva-3 Fatty Acids Active 1000 MG PO TWICE A DAY March 27, 2020 12:00am Start: 03-27-2020 take 1000 mg by mouth twice da delvin Galva-3 Fatty Acids Active 1000 MG PO TWICE A DAY March 26, 2020 11:00pm Galva-3 Fatty Acids 1,000 mg capsule (4 sources) Start: 03-27-2020 take 1 capsule by [facility] twice daily Start: 03-27-2020 take 1 capsule by [facility] twice daily Galva-3 Fatty Acids 1,000 mg capsule Active 1000 mg PO TWICE A DAY March 27, 2020 12:00am phentermine hydrochloride 37.5 mg oral tablet (13 sources) Sympathomimetic Amine Anorectic Start: 10-27-2024 End: 03-25-2025 take 40-44.9 tablets by mouth once daily Phentermine HCl 37.5 mg tablet Indications: Class 3 severe obesity with serious comorbidity and body mass index (BMI) of 40.0 to 44.9 in adult, unspecified obesity type (HCC) Take 1 tablet by mouth once daily for 90 days. 30 tablet 2 12/25/2024 03/25/2025 Active predniSONE 20 mg oral tablet (1 source) Start: 04-03-2022 End: 04-08-2022 take 2 tablets by mouth once daily predniSONE (DELTASONE) 20 mg tablet Take 2 tablets by mouth once daily for 5 days. 10 tablet 0 04/03/2022 04/08/2022 Active Comment on above: Take 2 tablets by [facility] once daily for 5 days. sertraline 100 mg oral tablet (20 sources) Serotonin Reuptake Inhibitor Start: 04-24-2024 take 1 tablet by mouth once daily Start: 04-22-2021 End: 04-22-2024 take 1 tablet by mouth once daily sertraline (ZOLOFT) 100 mg tablet Indications: Depression with anxiety Take 1 tablet by mouth once daily. Forgot Rx when traveling, do not cancel [facility] 90 tablet 3 02/08/2024 04/22/2024 Discontinued Comment on above: Take 1 tablet by [facility] once daily. Forgot Rx when traveling, do not cancel [facility] sulfamethoxazole 800 mg / trimethoprim 160 mg oral tablet (2 sources) Dihydrofolate Reductase Inhibitor Antibacterial, Sulfonamide Antimicrobial Start: 10-26-19 End: 11-02-19 take 1 tablet by mouth twice daily sulfamethoxazo le-trimethopri m (BACTRIM DS) 800-160 mg per tablet Take 1 tablet by mouth two times a day for 7 days. 14 tablet 10/25/2024 11/01/2024 Active sulfaSALAzine 500 mg oral tablet (20 sources) Aminosalicylate Start: 11-15-19 take 1 tablet by mouth twice daily in the morning, then take 2 tablets by mouth at bedtime Start: 11-06-2024 End: 11-21-2024 sulfaSALAzine (AZULFIDINE) 5 00 mg tablet Take 500 mg every morning and 1000mg every evening 270 tablet 11/21/2024 Active Start: 09-20-2024 End: 11-04-2024 sulfaSALAzine (AZULFIDINE) 5 00 mg tablet Take 500 mg every morning and 1000mg every evening 90 tablet 09/20/2024 11/04/2024 Discontinued Start: 09-18-2024 sulfaSALAzine (AZULFIDINE) 500 mg tablet Take 500 mg twice/day 60 tablet 09/18/2024 Active Start: 08-14-2024 End: 09-16-2024 sulfaSALAzine (AZULFIDINE) 5 00 mg tablet Take 500 mg twice/day 60 tablet 08/14/2024 09/16/2024 Discontinued Start: 07-17-2024 End: 08-12-2024 sulfaSALAzine (AZULFIDINE) 5 00 mg tablet Take 500 mg twice/day 60 tablet 07/17/2024 08/12/2024 Discontinued Start: 06-21-2024 End: 07-15-2024 sulfaSALAzine (AZULFIDINE) 5 00 mg tablet 500mg once/day x1 week, then 500mg twice/day thereafter 60 tablet 06/21/2024 07/15/2024 Discontinued topiramate 100 mg oral table t (20 sources) Start: 04-04-2024 take 1 tablet by mouth once da delvin Start: 05-28-2021 End: 07-05-2025 take 1 tablet by mouth once daily Start: 05-28-2021 End: 12-23-2021 topiramate (TOPAMAX) 25 mg t ablet 1 tab QHS x 1 week. Then increase by 1 tab QHS every week until goal of 100 mg QHS. 70 tablet 0 05/28/2021 12/23/2021 Discontinued Comment on above: Take 1 tablet by abimael th every evening. 1 tab QHS x 1 week. Then increase by 1 tab QHS every week until goal of 100 mg QHS. valACYclovir 1000 mg oral tablet (4 sources) Herpesvirus Nucleoside Analog DNA Polymerase Inhibitor, Herpes Simplex Virus Nucleoside Analog DNA Polymerase Inhibitor, Herpes Zoster Virus Nucleoside Analog DNA Polymerase Inhibitor Start: 4 End: take 1 tablet by mouth three times daily valACYclovir (VALTREX) 1 gram tablet Take 1 tablet by mouth three times a day for 7 days. 21 tablet 04/01/2024 04/08/2024 Active Completed/Discontinued Medications Medication Drug Class(es) Dates Sig (Normalized) Sig (Original) acetaminophen 325 mg / HYDROcodone bitartrate 5 mg oral tablet (7 sources) Opioid Agonist Start: 01-26-2021 End: 12-09-2022 Hydrocodone-Acetami nophen 5-325 mg tablet Discontinued 1 {tbl} PO EVERY 6 HOURS NEEDED as needed for Pain 10 3 0 January 26, 2021 December 09, 2022 10:47am Renal colic Unspecified renal colic Start: 01-26-2021 End: 12-09-2022 take 1 tablet by mouth every six hours as needed Hydrocodone-Acetaminophen Discontinued 1 TABLET PO EVERY 6 HOURS NEEDED 10 3 January 26, 2021 December 09, 2022 10:47am [id number] actuat albuterol 0.09 mg/actuat metered dose inhaler (20 sources) beta2-Adrenergic Agonist Start: 05-15-2020 End: 02-26-2023 take 2 puff(s) by inhalation every six hours as needed for wheezing albuterol HFA (PROVENTIL HFA, VENTOLIN HFA) 90 mcg/actuation inhaler Indications: Sinobronchitis Inhale 2 Puffs as instructed every 6 hours as needed for Wheezing/Shortness of Breath. 18 g 5 05/15/2020 02/26/2023 Discontinued Start: 05-08-2020 End: 12-10-2023 Albuterol Sulfate (Ventolin Hfa) 90 mcg/actuation HFA aerosol inhaler Discontinued 2 NMA INHALATION Q4H as needed for shortness of breath or wheezing 18 6 December 10, 2023 11:09am December 10, 2023 12:03pm Body mass index [BMI] 40.0-44.9, adult Start: 05-08-2020 take 1 puff(s) by in halation every four hours Albuterol Sulfate (Ventolin Hfa) 90 mcg/actuation HFA aerosol inhaler Active 2 PUFF INHALATION Q4H 18 May 08, 2020 1:00am Comment on above: Inhale 2 Puffs as in structed every 6 hours as needed for Wheezing/Shortness of Breath. amoxicillin 875 mg / clavulanate 125 mg oral tablet (13 sources) Penicillin-class Antibacterial Start: 10-13-2024 End: 11-20-2024 Amoxicillin-Pot Clavulanate 875-125 mg tablet Discontinued 1 {tbl} PO TWICE A DAY 14 7 0 October 13, 2024 12:00am November 14, 2024 8:53am Start: 08-26-2021 End: 09-05-2021 take 1 tablet by mouth twice daily amoxicillin-clavulanic acid (AUGMENTIN) 875-125 mg per tablet Indications: Cat bite, initial encounter Take 1 tablet by mouth twice daily for 10 days. 20 tablet 0 08/26/2021 09/05/2021 Active Comment on above: Take 1 tablet by abimael twice daily for 10 days. betamethasone 3 mg/ml / betamethasone acetate 3 mg/ml injectable suspension (2 sources) Corticosteroid Start: End: betamethasone acetate-betamethason e sodium phosphate 6 mg injection (CELESTONE) diclofenac sodium 75 mg delayed release oral tablet (20 sources) Nonsteroidal Anti-inflammatory Drug Start: End: apply 2 g topically twice daily diclofenac (VOLTAREN) 1 % topical gel Apply 2 g to affected area two times a day. 50 g 1 06/16/2023 11/08/2023 Discontinued (Course of therapy completed) Start: 03-27-2020 End: 12-25-2024 take 1 tablet by mouth twice daily Comment on above: Take 1 tablet by abimael twice daily. Apply 2 g to affecte d area two times a day. doxycycline monohydrate 100 mg oral capsule (12 sources) Tetracycline-class Drug Start: 10-17-19 End: 12-26-19 take 1 capsule by mouth twice daily doxycycline monohydrate (MONODOX) 100 mg capsule Indications: Cat bite, subsequent encounter Take 1 capsule by mouth two times a day. 20 capsule 10/16/2024 12/25/2024 Discontinued fluconazole 150 mg oral tablet (1 source) Azole Antifungal Start: 10-26-19 End: 10-26-19 fluconazole (DIFLUCAN) 150 mg tablet Take 1 tablet by mouth one time only for 1 dose. Repeat in 3 days as needed. 2 tablet 10/25/2024 10/25/2024 gabapentin 300 mg oral capsule (8 sources) Anti-epileptic Agent Start: 04-04-20 End: 07-05-19 take 1 capsule by mouth three times daily gabapentin (NEURONTIN) 300 mg capsule Indications: Herpes zoster without complication Take 1 capsule by mouth three times a day for 10 days. 30 capsule 04/04/2024 07/05/2024 Discontinued (Course of therapy completed) 10 ml lidocaine hydrochloride 10 mg/ml injection (2 sources) Antiarrhythmic, Amide Local Anesthetic Start: 09-23-19 End: 09-23-19 lidocaine (PF) 10 mg/mL (1 %) 4 mL injection (XYLOCAINE) losartan potassium 50 mg oral tablet (20 sources) Angiotensin 2 Receptor Bigg Start: 12-10-19 End: 11-15-19 take 2 tablets by mouth once daily Losartan 50 mg tablet Discontinued 100 mg PO DAILY December 10, 2023 10:44am November 14, 2024 8:51am Start: 11-08-2023 End: 09-02-2025 take 1 tablet by mouth once daily Start: 07-14-2021 End: 11-08-2023 losartan (COZAAR) 25 mg tabl et TAKE 3 TABLETS ONCE DAILY 270 tablet 3 09/24/2021 09/25/2022 Discontinued Start: 03-27-2020 End: 12-10-2023 take 1 tablet by mouth once daily Losartan 50 mg tablet Discontinued 50 mg PO DAILY March 27, 2020 12:00am December 10, 2023 10:44am Comment on above: Take 3 tablets by mo [facility] once daily. Take 1 tablet by abimael th once daily. Forgot Rx when traveling, do not cancel [facility] TAKE 3 TABLETS ONCE DAILY methotrexate 2.5 mg oral tablet (1 source) Folate Analog Metabolic Inhibitor Start: End: methotrexate 2.5 mg tablet Take 10mg (4 tabs) once weekly x1 dose, then 12.5mg (5 tabs) once weekly x1 dose, then 15mg (6 tabs) once weekly thereafter. 24 tablet 0 02/25/2022 02/25/2022 Discontinued Comment on above: Take 10mg (4 tabs) o nce weekly x1 dose, then 12.5mg (5 tabs) once weekly x1 dose, then 15mg (6 tabs) once weekly thereafter. perflutren lipid microspheres 1.3 mL in NaCl (PF) 0.9% 10 mL injection (DEFINITY) (19 sources) Start: End: perflutren lipid microspheres 1.3 mL in NaCl (PF) 0.9% 10 mL injection (DEFINITY) promethazine hydrochloride 12.5 mg oral tablet (7 sources) Phenothiazine Start: End: take 3 tablets by mouth three times daily as needed for nausea and vomiting Promethazine 12.5 mg tablet Discontinued 12.5 mg PO THREE TIMES A DAY as needed for nausea and vomiting 14 0 January 26, 2021 12:00am December 09, 2022 10:47am 3 doses during day; last dose no later than 4 hr before bedtime 125 ml sodium chloride 9 mg/ml prefilled syringe (19 sources) Start: End: sodium chloride 0.9 % (flush) 10 mL (BD POSIFLUSH) tirzepatide (MOUNJARO) 2.5 mg/0.5 mL pen injector (18 sources) Start: End: inject 2.5 mg by subcutaneous injection every week tirzepatide (MOUNJARO) 2.5 mg/0.5 mL pen injector Indications: Prediabetes Inject 2.5 mg subcutaneously one time a week. 4 Each 1 02/25/2022 08/25/2022 Discontinued Start: 02-25-2022 inject 2.5 mg by sub cutaneous injection every week tirzepatide (MOUNJARO) 2.5 mg/0.5 mL pen injector Indications: Prediabetes Inject 2.5 mg subcutaneously one time a week. 4 Each 1 02/25/2022 Active Start: 02-25-2022 End: 02-25-2022 inject 2.5 mg by subcutaneous injection every week tirzepatide (MOUNJARO) 2.5 mg/0.5 mL pen injector Indications: Prediabetes Inject 2.5 mg subcutaneously one time a week. 4 Each 1 02/25/2022 02/25/2022 Discontinued Comment on above: Inject 2.5 mg subcut aneously one time a week. Problems Active Problems Problem Classification Problem Date Documented Da te Episodic/Chronic Abdominal pain (20 sources) Epigastric pain; Translations: [Epigastric pain] 10-05-2008 Episodic Anxiety disorders (7 sources) Mixed anxiety and depressive disorder; Translations: [Other specified anxiety disorders] Onset: 5 Chronic Calculus of urinary tract (20 sources) Renal colic; Translations: [Unspecified renal colic] Onset: 2 06-27-2021 Episodic Cardiac dysrhythmias (4 sources) Palpitations; Translations: [Palpitations] Onset: 5 Episodic Disorders of lipid metabolism (20 sources) Hyperlipidemia; Translations: [Hyperlipidemia, unspecified] Onset: 4 07-13-2013 Chronic Esophageal disorders (20 sources) Gastroesophageal reflux disease; Translations: [Gastro-esophageal reflux disease without esophagitis] Onset: 8 11-22-2017 Chronic Essential hypertension (20 sources) Essential hypertension; Translations: [Essential (primary) hypertension] Onset: 7 03-22-2017 Chronic Headache; including migraine (20 sources) Migraine without aura, not refractory ; Translations: [Migraine without aura, not intractable, without status migrainosus] Onset: 1 05-28-2021 Chronic Immunizations and screening for infectious disease (2 sources) Needs influenza immunization; Translations: [Encounter for immunization] Onset: 5 02-26-2023 Episodic Mood disorders (20 sources) Depressive disorder; Translations: [Other specified depressive episodes] 06-11-2006 Chronic Nonspecific chest pain (1 source) Chest pain, unspecified; Translations: [Chest pain, unspecified type] Onset: 5 Episodic Nutritional deficiencies (5 sources) Vitamin D deficiency; Translations: [Vitamin D deficiency, unspecified] Onset: 5 Chronic Osteoarthritis (16 sources) Arthritis; Translations: [Unspecified osteoarthritis, unspecified site] Onset: 5 Chronic Other aftercare (6 sources) Drug therapy finding; Translations: [Other terminal manager (current) drug therapy] Episodic Other aftercare (1 source) Long-term current use of immunosuppressive drug; Translations: [Other prison (current) drug therapy] Episodic Other aftercare (2 sources) Other prison (current) drug therapy; Translations: [Long-term use of Plaquenil] Onset: 8 Episodic Other aftercare (1 source) intermediate (current) use of non-steroidal anti-inflammatories (NSAID); Translations: [Encounter for long-term (current) use of NSAIDs] Onset: 5 Episodic Other connective tissue disease (1 source) Pain in both feet; Translations: [Pain in right foot] 11-23-2022 Episodic Other gastrointestinal disorders (1 source) Diarrhea; Translations: [Diarrhea, unspecified] 02-19-2021 Episodic Other infections; including parasitic (1 source) Late effects of other and unspecified infectious and parasitic diseases; 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)] 02-19-2021 Chronic Other inflammatory condition of skin (20 sources) Lupus erythematosus; 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] Onset: 6 09-27-2017 Chronic Other lower respiratory disease (20 sources) Dyspnea on exertion; Translations: [Dyspnea, unspecified] Onset: 2 06-27-2021 Episodic Other nervous system disorders (1 source) Loss of sense of smell; Translations: [Anosmia] 02-19-2021 Episodic Other non-traumatic joint disorders (6 sources) Multiple joint pain; Translations: [Pain in unspecified joint] Episodic Other non-traumatic joint disorders (1 source) Pain in left knee; Translations: [Pain in joint, lower leg] 09-23-2023 Episodic Other non-traumatic joint disorders (1 source) Pain in unspecified joint; Translations: [Pain in joint, multiple sites] Onset: 5 Episodic Other nutritional; endocrine; and metabolic disorders (20 sources) Morbid obesity; Translations: [Morbid (severe) obesity due to excess calories] Onset: 7 09-16-2016 Chronic Other nutritional; endocrine; and metabolic disorders (20 sources) Body mass index 40+ - severely obese; Translations: [Morbid (severe) obesity due to excess calories] Onset: 2 06-27-2021 Chronic Other nutritional; endocrine; and metabolic disorders (4 sources) Metabolic syndrome X; Translations: [Metabolic syndrome] Chronic Other nutritional; endocrine; and metabolic disorders (1 source) Body mass index 30+ - obesity; Translations: [Obesity, unspecified] Chronic Other nutritional; endocrine; and metabolic disorders (1 source) Insulin resistance; Translations: [Metabolic syndrome] Chronic Other nutritional; endocrine; and metabolic disorders (5 sources) Severe obesity; Translations: [Class 3 severe obesity with serious comorbidity and body mass index (BMI) of 40.0 to 44.9 in adult, unspecified obesity type (HCC)] 06-26-2024 Chronic Other nutritional; endocrine; and metabolic disorders (5 sources) Obesity; Translations: [Obesity, unspecified] 12-10-2023 Chronic Other nutritional; endocrine; and metabolic disorders (3 sources) Body mass index (BMI) 40.0-44.9, adult; Translations: [Class 3 severe obesity with serious comorbidity and body mass index (BMI) of 40.0 to 44.9 in adult, unspecified obesity type (HCC)] Onset: 5 Chronic Other nutritional; endocrine; and metabolic disorders (1 source) Morbid (severe) obesity due to excess calories; Translations: [Morbid (severe) obesity due to excess calories] Onset: 5 Chronic Other screening for suspected conditions (not mental disorders or infectious disease) (1 source) Other specified abnormal findings of blood chemistry; Translations: [Elevated LFTs] Onset: 5 Episodic Other upper respiratory disease (1 source) Pain in throat; Translations: [Pain in throat] Episodic Residual codes; unclassified (20 sources) Obstructive sleep apnea syndrome; Translations: [Obstructive sleep apnea (adult) (pediatric)] Onset: 2 06-27-2021 Chronic Comment on above: AHI 130 Residual codes; unclassified (2 sources) Obstructive sleep apnea (adult) (pediatric); Translations: [Obstructive sleep apnea syndrome] Onset: 2 Chronic Residual codes; unclassified (1 source) Activity intolerance; Translations: [Other general symptoms and signs] 02-19-2021 Episodic Residual codes; unclassified (1 source) Insomnia; Translations: [Insomnia, unspecified] 11-24-2024 Episodic Spondylosis; intervertebral disc disorders; other back problems (1 source) Sacroiliitis, not elsewhere classified; Translations: [Sacroiliitis, not elsewhere classified] Onset: 5 Chronic Substance-related disorders (20 sources) Tobacco dependence in remission; Translations: [Nicotine dependence, unspecified, in remission] Onset: 2 Resolved: 2 06-27-2021 Chronic Thyroid disorders (20 sources) Hypothyroidism; Translations: [Hypothyroidism, unspecified] Onset: 6 03-22-2017 Chronic Thyroid disorders (4 sources) Disorder of thyroid gland; Translations: [Disorder of thyroid, unspecified] 10-13-2024 Episodic Unclassified (1 source) Class 3 severe obesity with serious comorbidity and body mass index (BMI) of 40.0 to 44.9 in adult, unspecified obesity type (HCC); Translations: [Class 3 severe obesity with serious comorbidity and body mass index (BMI) of 40.0 to 44.9 in adult, unspecified obesity type (HCC)] Onset: 5 Unclassified (1 source) Class 3 severe obesity with serious comorbidity and body mass index (BMI) of 40.0 to 44.9 in adult, unspecified obesity type; Translations: [Class 3 severe obesity with serious comorbidity and body mass index (BMI) of 40.0 to 44.9 in adult, unspecified obesity type] Onset: 5 Past or Other Problems Problem Classification Problem Date Documented Date Episodic/Chronic Abdominal hernia (20 sources) Diaphragmatic hernia; Translations: [Diaphragmatic hernia without obstruction or gangrene] Onset: 11-13-2008 11-13-2008 Episodic Administrative/social admission (1 source) Dietary counseling and surveillance; Translations: [Weight loss counseling, encounter for] Onset: 11-24-2024 Episodic Biliary tract disease (20 sources) Chronic cholecystitis; Translations: [Chronic cholecystitis] Onset: 10-12-2005 10-12-2005 Episodic Diabetes mellitus without complication (20 sources) Hyperglycemia; Translations: [Hyperglycemia, unspecified] Onset: 06-04-2011 06-04-2011 Episodic E Codes: Natural/environment (1 source) Bitten by cat, subsequent encounter; Translations: [Cat bite, subsequent encounter] Onset: 10-16-2024 Episodic Gastritis and duodenitis (20 sources) Acute gastritis; Translations: [Acute gastritis without bleeding] Onset: 11-13-2008 11-13-2008 Episodic Headache; including migraine (20 sources) Headache; 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] Onset: 03-05-2022 Episodic Inflammation; infection of eye (except that caused by tuberculosis or sexually transmitteddisease) (20 sources) Discoid lupus erythematosus of eyelid; 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 of unspecified eye, unspecified eyelid] Onset: 05-18-2005 09-16-2016 Episodic Malaise and fatigue (4 sources) Fatigue; Translations: [Other fatigue] Onset: 06-26-2024 02-19-2021 Episodic Open wounds of extremities (8 sources) Cat bite - wound; Translations: [Open bite of right hand, initial encounter] Onset: 10-17-2024 10-13-2024 Episodic Other aftercare (20 sources) Patient encounter status; Translations: [Other terminal manager (current) drug therapy] Onset: 11-22-2017 11-22-2017 Episodic Other aftercare (20 sources) Long-term current use of drug therapy; Translations: [Other prison (current) drug therapy] Onset: 11-22-2017 11-22-2017 Episodic Other connective tissue disease (20 sources) Tibialis tendinitis; Translations: [Posterior tibial tendinitis, right leg] Onset: 06-27-2018 06-27-2018 Episodic Other connective tissue disease (20 sources) Bilateral tendinitis of lower legs; Translations: [Peroneal tendinitis, right leg] Onset: 06-27-2018 06-27-2018 Episodic Other nervous system disorders (20 sources) Drug-induced myopathy; Translations: [Drug-induced myopathy] Onset: 07-11-2013 07-11-2013 Episodic Other nervous system disorders (20 sources) Drug-induced myopathy; Translations: [Toxic myopathy] Onset: 07-11-2013 07-11-2013 Episodic Residual codes; unclassified (1 source) Insomnia, unspecified; Translations: [Insomnia, unspecified type] Onset: 11-24-2024 Episodic Skin and subcutaneous tissue infections (4 sources) Cellulitis of right hand; Translations: [Cellulitis of right upper limb] Onset: 10-16-2024 10-16-2024 Episodic Spondylosis; intervertebral disc disorders; other back problems (1 source) Radiculopathy, cervical region; Translations: [Radiculopathy, cervical region] Onset: 06-29-2024 Episodic Unclassified (1 source) Patient encounter status 01-06-2025 Viral infection (3 sources) Herpes zoster without complication; Translations: [Zoster without complications] Onset: 04-04-2024 04-01-2024 Episodic Results Test Name Value Interpretation Reference Range Facility Basic metabolic 2000 panelon 03-26-2025 Anion gap [Moles/Vol] 14 mmol/L Normal 8-15 [facility] Comment on above: Order Comment: Speci men Type: BLOOD SPECIMENOrdering Facility: [facility] Address: [address] [place] [address] Performed By: #### 2 4320-07, ####[facility] [id number] [place] [address] [place] Calcium [Mass/Vol] 9.7 mg/dL Normal 8.5-10.2 [facility] Comment on above: Order Comment: Speci men Type: BLOOD SPECIMENOrdering Facility: [facility] Address: [address] [place] [address] Performed By: #### 2 4320-07, ####[facility] [id number] [place] [address] [place] Chloride [Moles/Vol] 105 mmol/L Normal 98-107 [facility] Comment on above: Order Comment: Speci men Type: BLOOD SPECIMENOrdering Facility: [facility] Address: [address] [place] [address] Performed By: #### 2 2, ####[facility] [id number] [place] [address] [place] CO2 [Moles/Vol] 20 mmol/L Low 22-30 [facility] Comment on above: Order Comment: Speci men Type: BLOOD SPECIMENOrdering Facility: [facility] Address: [address] [place] [address] Performed By: #### 2 4320-2, ####[facility] [id number] [place] [address] [place] Creatinine [Mass/Vol] 0.83 mg/dL Normal 0.58-0.96 [facility] Comment on above: Order Comment: Speci men Type: BLOOD SPECIMENOrdering Facility: [facility] Address: [address] [place] [address] Performed By: #### 2 2, ####[facility] [id number] [place] [address] [place] eGFRcr SerPlBld CKD-EPI 2020 81 mL/min/1.73m??? Normal >=60 [facility] Comment on above: Order Comment: Speci men Type: BLOOD SPECIMENOrdering Facility: [facility] Address: [address] [place] [address] Result Comment: Rosana mated Glomerular Filtration Rate (eGFR) is calculated using the 2020 CKD-EPI creatinine equation. This equation utilizes serum creatinine, sex, and age as parameters. The creatinine assay has traceable calibration to isotope dilution-mass spectrometry. Refer to KDIGO guidelines for clinical interpretation. In patients with unstable renal function, e.g. those with acute kidney injury, the eGFR may not accurately reflect actual GFR. Performed By: #### 2 4320-2, ####[facility] [id number] [place] [id number] [place] Glucose [Mass/Vol] 87 mg/dL Normal 74-99 [facility] Comment on above: Order Comment: Speci men Type: BLOOD SPECIMENOrdering Facility: [facility] Address: [address] [place] [address] Result Comment: The [place] Diabetes Association (ADA) provides guidance for cutoff values for fasting glucose and random glucose. The ADA defines fasting as no caloric intake for at least 8 hours. Fasting plasma glucose results between 100 to 125 mg/dL indicate increased risk for diabetes (prediabetes). Fasting plasma glucose results greater than or equal to 126 mg/dL meet the criteria for diagnosis of diabetes. In the absence of unequivocal hyperglycemia, results should be confirmed by repeat testing. In a patient with classic symptoms of hyperglycemia or hyperglycemic crisis, random plasma glucose results greater than or equal to 200 mg/dL meet the criteria for diagnosis of diabetes. Reference: Standards of Medical Care in Diabetes 2016, [place] Diabetes Association. Diabetes Care. 2016.39(Suppl 1). Performed By: #### 2 4320-07, ####[facility] [id number] [place] [address] [place] Potassium [Moles/Vol] 4.5 mmol/L Normal 3.7-5.1 [facility] Comment on above: Order Comment: Speci men Type: BLOOD SPECIMENOrdering Facility: [facility] Address: [address] [place] [address] Performed By: #### 2 4320-07, ####[facility] [id number] [place] [address] [place] Sodium [Moles/Vol] 139 mmol/L Normal 136-144 [facility] Comment on above: Order Comment: Bernardi kelly Type: BLOOD SPECIMENOrdering Facility: [facility] Address: [address] [place] [address] Performed By: #### 2 4320-07, ####[facility] [id number] [place] [address] [place] Urea nitrogen [Mass/Vol] 16 mg/dL Normal 7-21 [facility] Comment on above: Order Comment: Speci men Type: BLOOD SPECIMENOrdering Facility: [facility] Address: [address] [place] [address] Performed By: #### 2 4320-07, ####[facility] [id number] [place] [id number] [place] CNOVon 03-26-2025 CNOV Office Visit (INTMWS ) BERENICE GIVENS ([id number]) 1965 F Date Time Provider Department 03/26/25 1:00 PM MATTIE SOMERS INTMARLY During your visit today, we recorded the following information about you: Pulse Respiration Blood pressure Weight 86/minute 16/minute 128/78 120.7 kg Mattie Somers APRN.CNP 03/28/2025 1:27 PM Signed CC: Patient presents with: Recheck: 3 month follow up Immunizations: Flu vaccination HPI Berenice Givens is a 60 year old female who presents today for follow up. Recording using [employer] software for draft documentation of the visit was discussed with the patient/authorized patient representative; all questions welcomed and answered. Patient/authorized patient representative agreed to proceed Berenice Givens is a 60-year-old female with a history of anxiety, depression, obesity, and HTN, presenting with additional complaints of a single episode of chest pain. Obesity: - Weight decreased from 290 lbs in May to 266 lbs currently. - Drinks only water; denies caffeine intake. Has been on phentermine for weight loss. - Denies new supplements. - Last echocardiogram in 2020. - Last seen by child life assistant in October without concern. - Engages in exercise at [employer], using a bike-like machine due to hip problems. - Reports difficulty with prolonged walking. Chest Pain: - Single episode of sharp chest pain in the middle of the chest, lasting ~2 minutes, occurred while sitting and talking to neighbors. - Denies associated palpitations, headaches, dizziness, heartburn, nausea, diaphoresis, abdominal pain, or dysphagia. - Denies recurrence of chest pain during exercise or exertion. Goes to the gym multiple times a week without any exercise intolerance, chest pressure, or dyspnea with exertion. Tachycardia when first arrived at appointment with HR at 102 - Denies palpitations or skipped beats. - Monitors heart rate and blood pressure at home; reports normal readings. - Noted dyspnea at high elevations in [place], attributed to COVID lungs. Anxiety and Depression: - Well-controlled with Wellbutrin and sertraline. - Denies increased anxiety or contributing to elevated heart rate. - Denies thoughts of self-harm or harm to others. HTN: - Managed with losartan. - Monitors blood pressure at home; reports normal readings. 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 - Reports restful sleep with CPAP use but only sleeps 4-5 hours per night. - Wakes up at 0500, goes to bed at midnight. - Feels 6 hours of sleep is optimal. REVIEW OF SYSTEMS See HPI PAST MEDICAL HISTORY Diagnosis Date Abdominal pain, epigastric Cigarette smoker 06/27/2021 Depressive disorder, not elsewhere classified Diaphragmatic hernia without mention of obstruction or gangrene Lupus erythematosus Migraine, unspecified, with intractable migraine, so stated, without mention of status migrainosus Migraine Obstructive sleep apnea syndrome, severe with associated hypoxemia. patient declined to schedule follow up testing for CPAP Unspecified essential hypertension PAST SURGICAL HISTORY Procedure Laterality Date CHOLECYSTECTOMY 10/03 Cholecystectomy COLONOSCOPY FLX DX W/COLLJ SPEC WHEN PFRMD 12/10/2017 Colonoscopy ESOPHAGOGASTRODUODENOS COPY TRANSORAL DIAGNOSTIC EGD ESOPHAGOGASTRODUODENOS COPY TRANSORAL DIAGNOSTIC 12/10/2017 EGD PAST SURGICAL HISTORY OF trigger finger PAST SURGICAL HISTORY OF heel spur PAST SURGICAL HISTORY OF carpal tunnel PAST SURGICAL HISTORY OF 03/09/12 endovenous laser ablation of L great saphenous vein, small saphenous vein and vein of Giacomini ALLERGIES Lisinopril, Pravastatin, and Zithromax [Azithromycin] MEDICATIONS buPROPion XL (WELLBUTRIN XL) 150 mg 24 hr tablet Take 1 tablet by mouth once daily. sertraline (ZOLOFT) 100 mg tablet Take 1 tablet by mouth once daily. Forgot Rx when traveling, do not cancel [facility] Rx topiramate (TOPAMAX) 50 mg tablet Take 1 tablet by mouth daily at bedtime. mometasone (ELOCON) 0.1 % cream Apply 1 application to affected area once daily. lansoprazole (PREVACID) 30 mg capsule Take 1 capsule by mouth once daily. topiramate (TOPAMAX) 100 mg tablet Take 1 tablet by mouth every evening. ezetimibe (ZETIA) 10 mg tablet Take 1 tablet by mouth once daily. sulfaSALAzine (AZULFIDINE) 500 mg tablet TAKE 1 TABLET EVERY MORNING AND 2 TABLETS (1000 MG) EVERY EVENING metFORMIN ER (GLUCOPHAGE XR) 500 mg 24 hr tablet Take 1 tablet by mouth daily with breakfast. Forgot Rx when traveling, do not cancel [facility] Rx folic acid 1 mg tablet Take 2 tablets by mouth once daily. losartan (COZAAR) 100 mg tablet Take 1 tablet by mouth once daily. cholecalciferol (VITAMIN D3) 5,000 unit tab Take 1 tablet by mouth once daily. hydrOXYchloroQUINE (PLAQUENIL) 200 mg tablet Take 1 tablet by mouth two times a (more content not included)... Normal [facility] ECG COMPLETEon 03-26-2025 ECG COMPLETE Ventricular Rate : 8 7 BPM Atrial Rate : 87 BPM P-R Interval : 166 ms QRS Duration : 90 ms Q-T Interval : 380 ms QTC Calculation(Bazett) : 457 ms Calculated P [place] : 54 degrees Calculated R [place] : -11 degrees Calculated T [place] : 45 degrees NORMAL SINUS RHYTHM NORMAL ECG Confirmed by ABNER MERCHANT MD ([id number]) on 03/27/2025 5:41:51 PM NAME : BERENICE GIVENS PID : [id number] : 1965 Gender : Female Race : ORD : [id number] Procedure Date : Mar 26 2025 13:27:08 Edit Date : Mar 27 2025 17:41:54 Diagnosis: NORMAL SINUS RHYTHM NORMAL ECG Confirmed by ABNER MERCHANT MD ([id number]) on 03/27/2025 5:41:51 PM Test Reason : Immunizations Location : 185 : [facility] Overread By : ABNER MERCHANT MD Edited By : ABNER MERCHANT MD Referred By : , Acquired by : [id number], Normal [facility] Magnesium [Mass/Vol] 2.1 mg/dL Normal 1.7-2.3 [facility] Comment on above: Order Comment: Speci men Type: BLOOD SPECIMENOrdering Facility: [facility] Address: [address] [place] [address] Performed By: #### 2 4321-2, 84720-9 ####[facility] LABCLIA [id number] [place] [id number] [place] ALT SerPl-cCncon 02-20-2025 ALT [Catalytic activity/Vol] 29 U/L Normal 7-38 [facility] Comment on above: Order Comment: Speci men Type: BLOOD SPECIMENOrdering Facility: [facility] Address: [address] [place] [address] Performed By: #### 4 5066-8, 6, 1919-12 ####[facility] [id number] [place] [address] [place] AST SerPl-cCncon 02-20-2025 AST [Catalytic activity/Vol] 34 U/L Normal 13-35 [facility] Comment on above: Order Comment: Speci men Type: BLOOD SPECIMENOrdering Facility: [facility] Address: [address] [place] [address] Performed By: #### 4 5066-8, 1741-10, 1919-12 ####[facility] [id number] [place] [address] [place] CBC panel Auto (Bld)on 02-20 Erythrocyte distribution width (RBC) [Ratio] 11.9 % Normal 11.5-15.0 [facility] Comment on above: Order Comment: Speci men Type: BLOOD SPECIMENOrdering Facility: [facility] Address: [address] [place], [place] [address] Performed By: #### 5 8410-2 ####[facility] [id number] [place] [address] [place] Hematocrit (Bld) [Volume fraction] 39.4 % Normal 36.0-46.0 [facility] Comment on above: Order Comment: Speci men Type: BLOOD SPECIMENOrdering Facility: [facility] Address: [address] [place] [address] Performed By: #### 5 8410-2 ####[facility] [id number] [place] [address] [place] Hemoglobin (Bld) [Mass/Vol] 13.0 g/dL Normal 11.5-15.5 [facility] Comment on above: Order Comment: Speci men Type: BLOOD SPECIMENOrdering Facility: [facility] Address: [address] [place] [address] Performed By: #### 5 8410-2 ####[facility] [id number] [place] [address] [place] MCH (RBC) [Entitic mass] 31.1 pg Normal 26.0-34.0 [facility] Comment on above: Order Comment: Speci men Type: BLOOD SPECIMENOrdering Facility: [facility] Address: [address] [place] [address] Performed By: #### 5 8410-2 ####[facility] [id number] [place] [address] [place] [facility] MCHC (RBC) [Mass/Vol] 33.0 g/dL Normal 30.5-36.0 [facility] Comment on above: Order Comment: Speci men Type: BLOOD SPECIMENOrdering Facility: [facility] Address: [address] [place] [address] Performed By: #### 5 8410-2 ####[facility] [id number] [place] [address] [place] MCV (RBC) [Entitic vol] 94.3 fL Normal 80.0-100.0 [facility] Comment on above: Order Comment: Speci men Type: BLOOD SPECIMENOrdering Facility: [facility] Address: [address] [place] [address] Performed By: #### 5 8410-2 ####[facility] [id number] [place] [address] [place] Nucleated RBC (Bld) [#/Vol] 10*3/uL Normal <0.01 [facility] Comment on above: Order Comment: Speci men Type: BLOOD SPECIMENOrdering Facility: [facility] Address: [address] [place] [address] Performed By: #### 5 8410-2 ####[facility] [id number] [place] [address] [place] Platelet mean volume (Bld) [Entitic vol] 9.2 fL Normal 9.0-12.7 [facility] Comment on above: Order Comment: Speci men Type: BLOOD SPECIMENOrdering Facility: [facility] Address: [address] [place] [address] Performed By: #### 5 8410-2 ####[facility] [id number] [place] [address] [place] Platelets (Bld) [#/Vol] 272 10*3/uL Normal 150-400 [facility] Comment on above: Order Comment: Speci men Type: BLOOD SPECIMENOrdering Facility: [facility] Address: [address] [place] [address] Performed By: #### 5 8410-2 ####[facility] [id number] [place] [address] [place] RBC (Bld) [#/Vol] 4.18 10*6/uL Normal 3.90-5.20 [facility] Comment on above: Order Comment: Speci men Type: BLOOD SPECIMENOrdering Facility: [facility] Address: [address] [place] [address] Performed By: #### 5 8410-2 ####[facility] [id number] [place] [address] [place] WBC (Bld) [#/Vol] 9.54 10*3/uL Normal 3.70-11.00 [facility] Comment on above: Order Comment: Speci men Type: BLOOD SPECIMENOrdering Facility: [facility] Address: [address] [place] [address] Performed By: #### 5 8410-2 ####[facility] [id number] [place] [address] [place] Creatinine and Glomerular fi ltration rate.predicted panel (S/P/Bld)on 02-20-2025 Creatinine [Mass/Vol] 0.88 mg/dL Normal 0.58-0.96 [facility] Comment on above: Order Comment: Speci men Type: BLOOD SPECIMENOrdering Facility: [facility] Address: [address] [place] [address] Performed By: #### 4 5066-8, 1741-10, 1919-12 ####[facility] [id number] [place] [address] [place] eGFRcr SerPlBld CKD-EPI 2020 76 mL/min/1.73m??? Normal >=60 [facility] Comment on above: Order Comment: Yuridia mendoza Type: BLOOD SPECIMENOrdering Facility: [facility] Address: [address] [place] [address] Result Comment: Rosana mated Glomerular Filtration Rate (eGFR) is calculated using the 2020 CKD-EPI creatinine equation. This equation utilizes serum creatinine, sex, and age as parameters. The creatinine assay has traceable calibration to isotope dilution-mass spectrometry. Refer to KDIGO guidelines for clinical interpretation. In patients with unstable renal function, e.g. those with acute kidney injury, the eGFR may not accurately reflect actual GFR. Performed By: #### 4 5066-8, 6, 1919-12 ####[facility] [id number] [place] [address] [place] Sacrum-Coccyx min 2 Viewson 02-12-2025 Sacrum-Coccyx min 2 Views [facility] Imaging Services [address] [place] [address] Sacrum-Coccyx min 2 Views MR#: [id number] Acct: [id number] Name: BERENICE GIVENS Rep #: [id number] : 1965 F 59 From: Sal mae MD PCP: Dr. David Chicas MD Status: REG CLI Study: Sacrum-Coccyx min 2 Views Date of Exam: Exam# [id number] Ordering Dr: Elvia Bowers MD PROCEDURE: SACRUM-COCCYX MIN 2 VIEWS 02/12/2025 REASON FOR EXAM: SACROILIAN PAIN TECHNIQUE: Procedure Code: RADSAC Modality: DX Procedure: SACRUM-COCCYX MIN 2 VIEWS COMPARISON: None FINDINGS: Bones: No fracture. Joints: Degenerative changes of the sacroiliac joints bilaterally worse on the left side. Degenerative changes of symphysis pubis. Other: Marked degree of disc space narrowing at the L4-L5 and L5-S1 levels. RAD/Sacrum-Coccyx min 2 Views IMPRESSION: Degenerative changes of the sacroiliac joints as well as the the lower lumbar spine. Reading Location: [place] [address] CC: Dr. Elvia Bowers MD; Dr. David Chicas MD Corporate Quality Manager: Signed [facility] CNOVon 12-25-2024 CNOV Office Visit (INTMWS ) RACHELLEBERENICE ([id number]) 1965 F Date Time Provider Department 12/25/24 10:40 AM DAVID CHICAS INTMWS During your visit today, we recorded the following information about you: Pulse Respiration Blood pressure Weight 94/minute 16/minute 138/78 123.4 kg David Chicas MD 12/25/2024 1:09 PM Signed Reason for Visit Follow up phentermine HPI Berenice Givens is a 59-year-old female with a history of HTN and long COVID, presenting for follow-up. Berenice reports stable blood pressure and heart rate readings. She is currently under the care of Dr. Ross for long COVID management and has an upcoming home sleep study to determine the necessity of continued nocturnal oxygen use. Berenice expresses a strong desire to discontinue the oxygen concentrator, citing its noise as a significant sleep disturbance, keeping her awake for approximately 45 minutes each night. She has been using the concentrator for nearly 5 years, with the 5-year lolly approaching in March. She is currently taking Zetia and losartan, and has discontinued Wellbutrin. Berenice has been on phentermine for 3-4 months and reports a side effect of altered taste sensation, particularly with spicy foods, noting that mild sauces now feel excessively hot. She also experiences hot flashes. Berenice recently returned from a bus trip to [facility], which she enjoyed despite the heat. She is planning a trip to [place], [place], in February for a hot air balloon festival to celebrate her 60th birthday. Berenice is due for a mammogram and Pap test in February, with her last screenings performed in February of the previous year by Dr. Boles in [place], which were normal. Social History Tobacco Use Smoking status: Former Current packs/day: 0.00 Average packs/day: 0.5 packs/day for 20.0 years (10.0 ttl pk-yrs) Types: Cigarettes Start date: 04/22/1989 Quit date: 04/22/2009 Years since quittin.6 Smokeless tobacco: Never Vaping Use Vaping status: Never Used Substance Use Topics Alcohol use: No Drug use: No Past medical history, appointments, medications, allergies reviewed. Pertinent Lab/Diagnostic Studies are reviewed and discussed today Current Outpatient Medications: Phentermine HCl 37.5 mg tablet sulfaSALAzine (AZULFIDINE) 500 mg tablet losartan (COZAAR) 100 mg tablet topiramate (TOPAMAX) 100 mg tablet levothyroxine (SYNTHROID) 100 mcg tablet levothyroxine (SYNTHROID) 100 mcg tablet ezetimibe (ZETIA) 10 mg tablet cholecalciferol (VITAMIN D3) 5,000 unit tab sertraline (ZOLOFT) 100 mg tablet topiramate (TOPAMAX) 50 mg tablet lansoprazole (PREVACID) 30 mg capsule hydrOXYchloroQUINE (PLAQUENIL) 200 mg tablet folic acid 1 mg tablet metFORMIN ER (GLUCOPHAGE XR) 500 mg 24 hr tablet mometasone (ELOCON) 0.1 % cream omega-3 acid ethyl esters (LOVAZA) 1 gram capsule MV with Wjy-Pkgqnnff-Yryrpe (CENTRUM SILVER) 0.4-300-250 mg-mcg-mcg tab Health Maintenance Anxiety Screening Shingrix Vaccine(1 of 2) Cervical Cancer Screening Medicare Advantage Annual Wellness Visit Mammogram Screening@ Review Of Systems Constitutional: (+ insomnia Ears/Nose/Mouth/Throat : (+ altered taste Endocrine: (+ hot flashes Physical Exam BP 138/78 Pulse 94 Resp 16 Wt 123.4 kg (272 lb) SpO2 97% BMI 41.36 kg/m? GENERAL: NAD, alert and oriented. SKIN: Unremarkable, no rash or skin lesions. HEAD: Normocephalic. EYES: PERRLA, EOMI, conjunctiva clear. EARS: External ears normal, canals clear, TM's normal. NOSE/SINUSES: Nares normal. Septum midline. OROPHARYNX: Lips, mucosa, and tongue normal, good dentition. No oral lesions noted. NECK: Supple, no lymphadenopathy, normal thyroid, no carotid bruits. LUNGS: Clear to auscultation bilaterally, no wheezes/rhonchi/rales. HEART: Regular rate and rhythm, no murmurs. No ectopy. EXTREMITIES: Normal, no deformities, no skin discoloration, no edema. NEURO: Awake, alert and oriented x3, cranial nerves II-XII grossly intact, normal gait, no involuntary motions. Labs: Imaging: (February) Mammogram: Normal Tests: (February) Pap test: Normal Assessment and Plan 1. Class 3 severe obesity with serious comorbidity and body mass index (BMI) of 40.0 to 44.9 in adult, unspecified obesity type (HCC) (E66.813) Currently on phentermine for weight management, experiencing altered taste sensation, particularly with spicy foods, likely a side effect of the medication. - Continue phentermine with 2 refills, to be taken for up to a year. - Schedule follow-up appointments every 3 months to monitor progress and side effects. 2. Essential (primary) hypertension (I10) Blood pressure is stable, managed with losartan. Continue losartan as prescribed. Voice recognition software was used to compose this office note. Please excuse any unintended typographical errors. (more content not included)... Normal [facility] CNOVon 11-24-2024 CNOV Office Visit (INTMWS ) BERENICE GIVENS ([id number]) 1965 F Date Time Provider Department 11/24/24 1:00 PM MATTIE SOMERS INTMARLY During your visit today, we recorded the following information about you: Pulse Respiration Blood pressure Weight 80/minute 16/minute 130/78 125.2 kg Mattie Somers APRN.CNP 11/24/2024 2:30 PM Signed CC: Patient presents with: Recheck: 4 week follow up weight HPI Berenice Givens is a 59 year old female who presents today for above. Currently taking phentermine. Starting Month 2 Weight/BMI Last 1 Encounter Wt Readings: Date: Wt: 11/24/2024 125.2 kg (276 lb) BMI 41.97 kg/(m2) Last visit Wt: 125.2 kg (276 lb) BMI: 41.97 kg/(m2) DIET Daily serving of fruits:1-2 Daily serving of vegetables:1-2 Daily serving of protein:1-2 Fluid intake:Water: 7 glasses per day Do you Skip meals:YES Which meals do you tend to skip? Lunch Food Behaviors: denies Eating away from home:YES Sit down restaurantOnce weekly or less often Exercise routine: YES walking daily most of the time Medication side effects: Increased heart rate: sometimes, 1-2 episodes a week, does not last long, saw cardiology Wednesday Insomnia: Yes, Patient stats getting roughly 5.5 hours of sleep while on phentermine, states getting 6.5-7 hours prior. States somewhat restful with CPAP machine. Constipation: sometimes, states occasionally goes 2 days without BM Nervousness: No Impairment of concentration/attentio n, difficulty with memory, speech or language problems (particularly word-finding difficulties): No ROS as above, otherwise non-contributory. Reviewed PMHx, PSHx, social Hx, medications and allergies. PHYSICAL EXAM BP 130/78 Pulse 80 Resp 16 Wt 125.2 kg (276 lb) SpO2 97% BMI 41.97 kg/m? General Appearance: well appearing, in no acute distress, alert Lungs: Lungs clear to auscultation. No wheezing, rhonchi, rales. Heart: RRR without murmur, gallop, or rubs. No ectopy Abdomen: Abdomen soft, non-tender. Bowel sounds normal. No masses, organomegaly ASSESSMENT/PLAN: 1. Insomnia, unspecified type - ICD9: 780.52, ICD10: G47.00 (primary diagnosis) Uncomplicated Side effect of phentermine but is mild and has had this issue in the past getting 5.5-6 hrs of sleep a night Patient states will be taking marijuana gummy to aid with sleep as she has done in the past with this problem and will update with how she is doing. 2. Class 3 severe obesity with serious comorbidity and body mass index (BMI) of 40.0 to 44.9 in adult, unspecified obesity type (HCC) - ICD9: 278.01, V85.41, ICD10: E66.813, Z68.41 Weight decreasing - Pharmacological intervention - Eat foods high in low fat protein, fruits and vegetables. Continue exercising by walking daily and add body weight exercises - Continue current medications - PHENTERMINE 37.5 MG TABLET Discussed Contraindications, went over each one and over side effects. tolerance, continuity of medication, controlled medication so cannot be replaced if stolen or if lost. Advised exercising along with this will really help the patient reach her goal of loosing weight. Short term use of this med was discussed. Negative for all the following :Hypersensitivity or idiosyncrasy to phentermine or other sympathomimetic amines or any component of the formulation; history of cardiovascular disease (arrhythmias, congestive heart failure, coronary artery disease, stroke, uncontrolled hypertension); hyperthyroidism, glaucoma, agitated states, history of drug abuse; use during or within 14 days following MAO inhibitor therapy; , breast-feeding. PDMP website checked and validated. All prescriptions have been APPROPRIATELY filled. No suspicious activity was identified. 11/24/2024 by Mattie oSmers APRN.CNP 3. Weight loss counseling, encounter for - ICD9: V65.3, ICD10: Z71.3 As above Prescription instructions reviewed with patient as applicable. Potential red flag symptoms discussed with the patient. Reviewed appropriate action plan to take if red flag symptoms occur. Patient agreeable to treatment plan. Mattie Somers APRN.CNP Allergies As of Date: 11/24/2024 Noted Allergy Reaction LISINOPRIL 06/04/2011 5 - Intolerance Comments: sleepy PRAVASTATIN 06/30/2013 15 - Contraindication-Medic al Bear* Comments: myositis ZITHROMAX (AZITHROMYCIN) 01/19/2008 Comments: Abdominal cramping Date Reviewed: 11/24/2024 Reviewed by: Mattie Somers APRN.CNP - Fully Assessed Reason for Visit: Recheck [92] Cmt: 4 week follow up weight Primary Visit Diagnosis:Insomnia, unspecified type [G47.00] Other Visit Diagnoses:Class 3 severe obesity with serious comorbidity and body mass index (BMI) of 40.0 to 44.9 in adult, unspecified obesity type (HCC) [E66.813, Z68.41] Weight loss counseling, encounter for [Z71.3] Order(s):Phentermine HCl 37.5 mg tabletTake 1 tablet by mouth once daily f (more content not included)... Normal [facility] CNOVon 11-20-2024 CNOV Office Visit (DEACON ) BERENICE GIVENS ([id number]) 1965 F Date Time Provider Department 11/20/24 1:20 PM FELIX ORNELAS During your visit today, we recorded the following information about you: Pulse Blood pressure Weight 93/minute 132/82 125.2 kg Felix Ornelas MD 11/20/2024 1:35 PM Signed Felix Ornelas MD Interventional Cardiology [address] [place] [address] [phone] Chief Complaint Patient presents with: CARD Follow Up Annual HISTORY OF PRESENT ILLNESS: Ms. Givens is a 59-year-old female with a history of hypertension and hypercholesterolemia, presenting for a follow-up visit. The patient reports no significant changes in her health status since her last visit a year ago. She notes occasional dyspnea but does not find it concerning. She denies experiencing chest pain, dizziness, or lightheadedness. She tries to stay active and is planning a trip to [facility], which will involve walking. She underwent vertebroplasty, which involved the injection of cement into her spine, and reports that the procedure was 100% effective in alleviating her symptoms. She monitors her blood pressure at home and reports that it remains within the normal range. She denies any issues with her medications. She is currently taking Zetia and losartan 100 mg daily. age (male over 45, female over 55), obesity, hypertension, family history of CAD PAST MEDICAL HISTORY Diagnosis Date Abdominal pain, epigastric Cigarette smoker 06/27/2021 Depressive disorder, not elsewhere classified Diaphragmatic hernia without mention of obstruction or gangrene Lupus erythematosus Migraine, unspecified, with intractable migraine, so stated, without mention of status migrainosus Migraine Obstructive sleep apnea syndrome, severe with associated hypoxemia. patient declined to schedule follow up testing for CPAP Unspecified essential hypertension PAST SURGICAL HISTORY Procedure Laterality Date CHOLECYSTECTOMY 10/03 Cholecystectomy COLONOSCOPY FLX DX W/COLLJ SPEC WHEN PFRMD 12/10/2017 Colonoscopy ESOPHAGOGASTRODUODENOS COPY TRANSORAL DIAGNOSTIC EGD ESOPHAGOGASTRODUODENOS COPY TRANSORAL DIAGNOSTIC 12/10/2017 EGD PAST SURGICAL HISTORY OF trigger finger PAST SURGICAL HISTORY OF heel spur PAST SURGICAL HISTORY OF carpal tunnel PAST SURGICAL HISTORY OF 03/09/12 endovenous laser ablation of L great saphenous vein, small saphenous vein and vein of [place] FAMILY HISTORY Problem Relation Age of Onset Diabetes Mother Alzheimer's Disease Mother other (Polycythmeia vera) Father Breast Cancer Sister bilateral mastectomy other (HOCM with myocardial bridge) Sister Alzheimer's Disease Maternal Grandmother Heart Maternal Grandfather Cancer Paternal Grandfather Lung Alzheimer's Disease Maternal Aunt Alzheimer's Disease Maternal Uncle Alzheimer's Disease Maternal Uncle Social History Tobacco Use Smoking status: Former Current packs/day: 0.00 Average packs/day: 0.5 packs/day for 20.0 years (10.0 ttl pk-yrs) Types: Cigarettes Start date: 04/22/1989 Quit date: 04/22/2009 Years since quittin.5 Smokeless tobacco: Never Vaping Use Vaping status: Never Used Substance Use Topics Alcohol use: No Drug use: No ALLERGIES Allergen Reactions Lisinopril Intolerance sleepy Pravastatin Contraindication-Medic al Surgical myositis Zithromax [Azithrom* Abdominal cramping Medications: Current Outpatient Medications Medication Sig Dispense Refill sulfaSALAzine (AZULFIDINE) 500 mg tablet Take 500 mg every morning and 1000mg every evening 90 tablet 0 Phentermine HCl 37.5 mg tablet Take 1 tablet by mouth once daily for 30 days. 30 tablet 0 diclofenac, EC, (VOLTAREN) 75 mg EC tablet Take 1 tablet by mouth two times a day. 180 tablet 3 doxycycline monohydrate (MONODOX) 100 mg capsule Take 1 capsule by mouth two times a day. 20 capsule 0 losartan (COZAAR) 100 mg tablet Take 1 tablet by mouth once daily. 90 tablet 3 buPROPion XL (WELLBUTRIN XL) 150 mg 24 hr tablet Take 1 tablet by mouth once daily. 90 tablet 1 topiramate (TOPAMAX) 100 mg tablet Take 1 tablet by mouth every evening. 90 tablet 3 levothyroxine (SYNTHROID) 100 mcg tablet Take 1 tablet by mouth daily before breakfast. 90 tablet 3 levothyroxine (SYNTHROID) 100 mcg tablet Take 1 tablet by mouth daily before breakfast. 30 tablet 0 ezetimibe (ZETIA) 10 mg tablet Take 1 tablet by mouth once daily. 90 tablet 3 cholecalciferol (VITAMIN D3) 5,000 unit tab Take 1 tablet by mouth once daily. 90 tablet 3 sertraline (ZOLOFT) 100 mg tablet Take 1 tablet by mouth once daily. Forgot Rx when traveling, do not cancel [facility] Rx 90 tablet 3 topiramate (TOPAMAX) 50 mg tablet Take 1 tablet by mouth daily at bedtime. 90 tablet 3 lansoprazole (PREVACID) 30 mg capsule T (more content not included)... Normal [facility] Pulmonary Visit Reporton Pulmonary Visit Report [facility] [address] [place] [address] OFFICE VISIT Date of Service: 11/14/24 MR#: [id number] Acct: [id number] Name: BEERNICE GIVENS Rep #: [id number] : 1965 Provider: NINO Costa Age/Sex: 59/F Location: [facility].PMW Status: Signed Assessment and Plan Assessment and Plan (1) CHATO (obstructive sleep apnea): Status: Chronic Comment: AHI 130 Plan: Deteriorated. Her machine is making a noise, it is greater than 5 years old. It is not functioning properly. She is eligible for replacement device. Ordering a new AutoPap. Return to the office within 90 days for a follow-up inup-qt-pdrx visit. Plan Details Additional Comments: This note was generated with [employer] dictation software. It may contain incorrect words, spelling, and punctuation that were not noted in checking the note before signing. Follow Up: 3 Months HPI Needs new pap machine Chief Complaint: new machine HPI Comments Details: This patient presents to the office today for follow-up of her obstructive sleep apnea complicated by history of nicotine abuse. She is ambulatory and currently on room air. She has not recently been seen in the ED or urgent care for any respiratory illness. She has not required any antibiotics or prednisone for any breathing problems. She is not currently on any maintenance inhalers. She has not recently used albuterol. She denies any difficulty with shortness of breath. She denies any cough, sputum production or hemoptysis. She has not had any wheezing, chest tightness, chest pain or palpitations. She uses her PAP machine routinely, but is now making a constant noise. This noise is waking her up and making it difficult to sleep. She denies any difficulty with dry mouth. She is not having morning headaches. She is not having excessive nocturia. If you recall, this patient quit smoking back in 2018. She does have a greater than 28-tjvx-zvzk smoking history. Compliance report for the past 30 days shows 100% compliance and average use of 6 hours 14 minutes per night. Current setting is AutoPap 10-20 cmH2O pressure typically being utilized at 16.1-19.9 cm water. Residual AHI of 6.5 events per hour. Leaks do not appear to be. 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 Required: No DME Vendor: [employer] Accompanied by: Self Allergies azithromycin (From Zithromax Z-Jose) Adverse Reaction (Mild, Verified 11/14/24 08:48) Abdominal cramping lisinopril Adverse Reaction (Mild, Verified 11/14/24 08:48) Sleepy Medications ???Medication ???Instructions ???Recorded ???Confirmed ???Type cholecalciferol (vitamin D3) 125 125 mcg PO DAILY 03/27/20 11/14/24 History mcg (5,000 unit) capsule diclofenac sodium 75 mg 75 mg PO BID 03/27/20 11/14/24 His tory tablet,delayed release folic acid 1 mg tablet 1 mg PO BID 03/27/20 11/14/24 Hist ory lansoprazole 30 mg capsule,delayed 30 mg PO DAILY 03/27/20 11/14/24 History release (Prevacid) vpvxoclt-rsyizdf-nqzs- lutein tablet tab PO 03/27/20 11/14/24 Histor y omega-3 fatty acids 1,000 mg 1,000 mg PO BID 03/27/20 11/14/24 History capsule ezetimibe 10 mg tablet 10 mg PO DAILY 12/09/22 11/14/24 H istory albuterol sulfate 90 mcg/actuation 2 puff inhalation Q4H PRN 11/14/24 Rx aerosol inhaler (Ventolin HFA) shortness of breath or wheezing #18 grams hydroxychloroquine 200 mg tablet 200 mg PO BID 11/14/24 11/14/24 Hi story (Plaquenil) levothyroxine 100 mcg tablet 100 mcg PO QDAY 11/14/24 11/14/24 History (Synthroid) losartan 100 mg tablet 100 mg PO QDAY 11/14/24 11/14/24 H istory metformin 500 mg tablet,extended 500 mg PO QDAY 11/14/24 11/14/24 H istory release 24 hr sertraline 100 mg tablet 100 mg PO QDAY 11/14/24 11/14/24 H istory sulfasalazine 500 mg tablet See Rx Instructions PO BID 5 11/14/24 History topiramate 100 mg tablet 100 mg PO QDAY 11/14/24 11/14/24 H istory topiramate 50 mg tablet 50 mg PO QDAY 11/14/24 11/14/24 Hi story [facility] Medical History Shingles History of trigger finger Thyroid disorder Lupus Sleep apnea Bronchitis Surgical History History of carpal tunnel release History of cholecystectomy Family History ... [facility] Office Visit (INTMWS ) BERENICE GIVENS ([id number]) 1965 F Date Time Provider Department 10/27/24 2:00 PM MATTIE SOMERS INTMARLY During your visit today, we recorded the following information about you: Temperature Pulse Respiration Blood pressure 97.7 degrees 77/minute 16/minute 130/72 Mattie Somers APRN.CNP 10/27/2024 2:19 PM Signed - Continue taking Bactrim exactly as prescribed to complete a 7-day course. - Check your hand each day; if the redness at the bite site remains bright red (rather than pink) by Wednesday, call the office so we can extend your antibiotic course to 10 days. - Watch for any signs of worsening infection--fever, chills, body aches, increased redness or red streaking, new drainage, or return of swelling--and go to the emergency room if these occur. Mattie Somers APRN.CUSTOM APPLICATOR 10/27/2024 3:24 PM Signed CC: Patient presents with: Recheck: Cellulitis follow up HPI Berenice Givens is a 59 year old female who presents today for follow up on cat bite. Was treated previously augmentin and doxycycline, but was seen 2 days ago with return of redness tenderness and drainage. Was started on bactrim. Recording using [employer] software for draft documentation of the visit was discussed with the patient/authorized patient representative; all questions welcomed and answered. Patient/authorized patient representative agreed to proceed Cat Bite Infection: - Started on Bactrim 2 days ago; has taken 4 doses. - Denies fever, chills, or red streaking. - Swelling is decreasing; able to see veins in the hand. - No further drainage noted. - Pain has significantly improved; previously very tender, now minimal tenderness. - Hand remains warm, but no difference in temperature compared to the rest of the body. Also brings up concerns for obesity. Walks throughout the week for exercise and has recently increased to 2-3 miles daily but still has only lost a few pounds. Is on wellbutrin to help with weight loss but has not lost much. Also states she adheres to a healthy well balanced diet most of the time and avoids snacking. Is also on topiramate but is on this for migraine prevention and has been on this for years. REVIEW OF SYSTEMS General: no fevers, no chills, no night sweats, no recurrent infections, no change in appetite, no change in energy, and no significant changes in weight Respiratory: no cough, no wheezing, no shortness of breath, no hemoptysis Cardiovascular: no chest pain, no chest pressure, no palpitations, and no swelling PAST MEDICAL HISTORY Diagnosis Date Abdominal pain, epigastric Cigarette smoker 06/27/2021 Depressive disorder, not elsewhere classified Diaphragmatic hernia without mention of obstruction or gangrene Lupus erythematosus Migraine, unspecified, with intractable migraine, so stated, without mention of status migrainosus Migraine Obstructive sleep apnea syndrome, severe with associated hypoxemia. patient declined to schedule follow up testing for CPAP Unspecified essential hypertension PAST SURGICAL HISTORY Procedure Laterality Date CHOLECYSTECTOMY 10/03 Cholecystectomy COLONOSCOPY FLX DX W/COLLJ SPEC WHEN PFRMD 12/10/2017 Colonoscopy ESOPHAGOGASTRODUODENOS COPY TRANSORAL DIAGNOSTIC 6/16/009 EGD ESOPHAGOGASTRODUODENOS COPY TRANSORAL DIAGNOSTIC 12/10/2017 EGD PAST SURGICAL HISTORY OF trigger finger PAST SURGICAL HISTORY OF heel spur PAST SURGICAL HISTORY OF carpal tunnel PAST SURGICAL HISTORY OF 03/09/12 endovenous laser ablation of L great saphenous vein, small saphenous vein and vein of Giacomini ALLERGIES Lisinopril, Pravastatin, and Zithromax [Azithromycin] MEDICATIONS Phentermine HCl 37.5 mg tablet Take 1 tablet by mouth once daily for 30 days. sulfamethoxazole-trime thoprim (BACTRIM DS) 800-160 mg per tablet Take 1 tablet by mouth two times a day for 7 days. diclofenac, EC, (VOLTAREN) 75 mg EC tablet Take 1 tablet by mouth two times a day. amoxicillin-clavulanat e potassium (AUGMENTIN) 875-125 mg per tablet Take 1 tablet by mouth two times a day. doxycycline monohydrate (MONODOX) 100 mg capsule Take 1 capsule by mouth two times a day. sulfaSALAzine (AZULFIDINE) 500 mg tablet Take 500 mg every morning and 1000mg every evening losartan (COZAAR) 100 mg tablet Take 1 tablet by mouth once daily. buPROPion XL (WELLBUTRIN XL) 150 mg 24 hr tablet Take 1 tablet by mouth once daily. topiramate (TOPAMAX) 100 mg tablet Take 1 tablet by mouth every evening. levothyroxine (SYNTHROID) 100 mcg tablet Take 1 tablet by mouth daily before breakfast. levothyroxine (SYNTHROID) 100 mcg tablet Take 1 tablet by mouth daily before breakfast. ezetimibe (ZETIA) 10 mg tablet Take 1 tablet by mouth once daily. cholecalciferol (VITAMIN D3) 5,000 unit tab Take 1 tablet by mouth once daily. sertraline (ZOLOFT) 100 mg tablet Take 1 tablet by mouth once daily. Forgot (more content not included)... [facility] (INTM[facility] BERENICE GIVENS ([id number]) 1965 F Date Time Provider Department 10/25/24 12:20 PM OLDER, MATTIE SEVERINO During your visit today, we recorded the following information about you: Pulse Respiration Blood pressure Weight 80/minute 16/minute 142/78 128.4 kg OlderMattie APRN.CUSTOM APPLICATOR 10/26/2024 7:41 AM Signed CC: Patient presents with: Recheck: 3 month follow up HPI Berenice Givens is a 59 year old female who presents today for routine follow up but recent cat bite she had been treated for is getting red again and starting to drain. Recording using [employer] software for draft documentation of the visit was discussed with the patient/authorized patient representative; all questions welcomed and answered. Patient/authorized patient representative agreed to proceed Cat Bite: - Originally bitten by her cat on the right hand. - Initially treated in the ER with Augmentin for 7 days,when she saw PCP Doxycycline was added for 10 days. Finished treatment 5 days ago - Reports persistent erythema, warmth, and purulent drainage from the bite site. - Noticed increased erythema and warmth recently in the past few days - Denies fever, chills, or lymphangitic streaking. - Experiencing fatigue and mild dyspnea since the bite but unsure if it is related to bite, or her lupus, or other cause - Denies chest pain, palpitations, cough, wheezing, or other concern. - No changes in urine color or consistency. - Developed diarrhea while on antibiotics, now resolved. - Currently experiencing a yeast infection form antibiotic treatment. REVIEW OF SYSTEMS See HPI PAST MEDICAL HISTORY Diagnosis Date Abdominal pain, epigastric Cigarette smoker 06/27/2021 Depressive disorder, not elsewhere classified Diaphragmatic hernia without mention of obstruction or gangrene Lupus erythematosus Migraine, unspecified, with intractable migraine, so stated, without mention of status migrainosus Migraine Obstructive sleep apnea syndrome, severe with associated hypoxemia. patient declined to schedule follow up testing for CPAP Unspecified essential hypertension PAST SURGICAL HISTORY Procedure Laterality Date CHOLECYSTECTOMY 10/03 Cholecystectomy COLONOSCOPY FLX DX W/COLLJ SPEC WHEN PFRMD 12/10/2017 Colonoscopy ESOPHAGOGASTRODUODENOS COPY TRANSORAL DIAGNOSTIC EGD ESOPHAGOGASTRODUODENOS COPY TRANSORAL DIAGNOSTIC 12/10/2017 EGD PAST SURGICAL HISTORY OF trigger finger PAST SURGICAL HISTORY OF heel spur PAST SURGICAL HISTORY OF carpal tunnel PAST SURGICAL HISTORY OF 03/09/12 endovenous laser ablation of L great saphenous vein, small saphenous vein and vein of Giacomini ALLERGIES Lisinopril, Pravastatin, and Zithromax [Azithromycin] MEDICATIONS sulfamethoxazole-trime thoprim (BACTRIM DS) 800-160 mg per tablet Take 1 tablet by mouth two times a day for 7 days. fluconazole (DIFLUCAN) 150 mg tablet Take 1 tablet by mouth one time only for 1 dose. Repeat in 3 days as needed. diclofenac, EC, (VOLTAREN) 75 mg EC tablet Take 1 tablet by mouth two times a day. amoxicillin-clavulanat e potassium (AUGMENTIN) 875-125 mg per tablet Take 1 tablet by mouth two times a day. doxycycline monohydrate (MONODOX) 100 mg capsule Take 1 capsule by mouth two times a day. sulfaSALAzine (AZULFIDINE) 500 mg tablet Take 500 mg every morning and 1000mg every evening losartan (COZAAR) 100 mg tablet Take 1 tablet by mouth once daily. buPROPion XL (WELLBUTRIN XL) 150 mg 24 hr tablet Take 1 tablet by mouth once daily. topiramate (TOPAMAX) 100 mg tablet Take 1 tablet by mouth every evening. levothyroxine (SYNTHROID) 100 mcg tablet Take 1 tablet by mouth daily before breakfast. levothyroxine (SYNTHROID) 100 mcg tablet Take 1 tablet by mouth daily before breakfast. ezetimibe (ZETIA) 10 mg tablet Take 1 tablet by mouth once daily. cholecalciferol (VITAMIN D3) 5,000 unit tab Take 1 tablet by mouth once daily. sertraline (ZOLOFT) 100 mg tablet Take 1 tablet by mouth once daily. Forgot Rx when traveling, do not cancel [facility] topiramate (TOPAMAX) 50 mg tablet Take 1 tablet by mouth daily at bedtime. lansoprazole (PREVACID) 30 mg capsule Take 1 capsule by mouth once daily. hydrOXYchloroQUINE (PLAQUENIL) 200 mg tablet Take 1 tablet by mouth two times a day. folic acid 1 mg tablet Take 2 tablets by mouth once daily. metFORMIN ER (GLUCOPHAGE XR) 500 mg 24 hr tablet Take 1 tablet by mouth daily with breakfast. Forgot Rx when traveling, do not cancel [facility] mometasone (ELOCON) 0.1 % cream Apply 1 application to affected area once daily. omega-3 acid ethyl esters (LOVAZA) 1 gram capsule TAKE 2 CAPSULES ONCE DAILY MV with Qgo-Bfxqhjdj-Beqksd (CENTRUM SILVER) 0.4-300-250 mg-mcg-mcg tab Take 1 tablet by mouth once daily. FAMILY HISTORY Problem Relation Age of Onset Diabetes Mother Alzheimer's Diseas (more content not included)... Normal [facility] ALT SerPl-cCncon 10-19-2024 ALT [Catalytic activity/Vol] 39 U/L High 7-38 [facility] Comment on above: Order Comment: Speci men Type: BLOOD SPECIMENOrdering Facility: [facility] Address: [address] [place] [address] Performed By: #### 1 920-8, 67586-9, 1742-6 ####[facility] [id number] [place] [address] [place] AST SerPl-cCncon 10-19-2024 AST [Catalytic activity/Vol] 43 U/L High 13-35 [facility] Comment on above: Order Comment: Speci men Type: BLOOD SPECIMENOrdering Facility: [facility] Address: [address] [place] [address] Performed By: #### 1 920-8, 75235-5, 1742-6 ####[facility] [id number] [place] [address] [place] CBC panel Auto (Bld)on 10-19 Erythrocyte distribution width (RBC) [Ratio] 12.3 % Normal 11.5-15.0 [facility] Comment on above: Order Comment: Speci men Type: BLOOD SPECIMENOrdering Facility: [facility] Address: [address] [place] [address] Performed By: #### 5 8410-2 ####[facility] [id number] [place] [address] [place] Hematocrit (Bld) [Volume fraction] 39.0 % Normal 36.0-46.0 [facility] Comment on above: Order Comment: Speci men Type: BLOOD SPECIMENOrdering Facility: [facility] Address: [address] [place] [address] Performed By: #### 5 8410-2 ####[facility] [id number] [place] [address] [place] Hemoglobin (Bld) [Mass/Vol] 12.8 g/dL Normal 11.5-15.5 [facility] Comment on above: Order Comment: Speci men Type: BLOOD SPECIMENOrdering Facility: [facility] Address: [address] [place] [address] Performed By: #### 5 8410-2 ####[facility] [id number] [place] [address] [place] MCH (RBC) [Entitic mass] 30.7 pg Normal 26.0-34.0 [facility] Comment on above: Order Comment: Speci men Type: BLOOD SPECIMENOrdering Facility: [facility] Address: [address] [place] [address] Performed By: #### 5 8410-2 ####[facility] [id number] [place] [address] [place] MCHC (RBC) [Mass/Vol] 32.8 g/dL Normal 30.5-36.0 [facility] Comment on above: Order Comment: Speci men Type: BLOOD SPECIMENOrdering Facility: [facility] Address: [address] [place] [address] Performed By: #### 5 8410-2 ####[facility] [id number] [place] [address] [place] MCV (RBC) [Entitic vol] 93.5 fL Normal 80.0-100.0 [facility] Comment on above: Order Comment: Speci men Type: BLOOD SPECIMENOrdering Facility: [facility] Address: [address] [place] [address] Performed By: #### 5 8410-2 ####[facility] NARINDER [id number] [place] [address] [place] Nucleated RBC (Bld) [#/Vol] 10*3/uL Normal <0.01 [facility] Comment on above: Order Comment: Speci men Type: BLOOD SPECIMENOrdering Facility: [facility] Address: [address] [place] [address] Performed By: #### 5 8410-2 ####[facility]ILLESWARTHMORENCDIRK [id number] [place] [address] [place] Platelet mean volume (Bld) [Entitic vol] 9.0 fL Normal 9.0-12.7 [facility] Comment on above: Order Comment: Speci men Type: BLOOD SPECIMENOrdering Facility: [facility] Address: [address] [place] [address] Performed By: #### 5 8410-2 ####[facility]ILLESWARTHMOREMANSOORA [id number] [place] [address] [place] Platelets (Bld) [#/Vol] 241 10*3/uL Normal 150-400 [facility] Comment on above: Order Comment: Speci men Type: BLOOD SPECIMENOrdering Facility: [facility] Address: [address] [place] [address] Performed By: #### 5 8410-2 ####[facility] CAMILLESWARTHMORENCLIA [id number] [place] [address] [place] RBC (Bld) [#/Vol] 4.17 10*6/uL Normal 3.90-5.20 [facility] Comment on above: Order Comment: Speci men Type: BLOOD SPECIMENOrdering Facility: [facility] Address: [address] [place] [address] Performed By: #### 5 8410-2 ####[facility] [id number] [place] [address] [place] WBC (Bld) [#/Vol] 10.26 10*3/uL Normal 3.70-11.00 [facility] Comment on above: Order Comment: Speci men Type: BLOOD SPECIMENOrdering Facility: [facility] Address: [address] [place] [address] Performed By: #### 5 8410-2 ####[facility] [id number] [place] [address] [facility] Creatinine + eGFR Pnl SerPlB ldon 10-19-2024 Creatinine and Glomerular filtration rate.predicted panel (S/P/Bld) 92 mL/min/1.73m??? Normal >=60 [facility] Comment on above: Order Comment: Yuridia mendoza Type: BLOOD SPECIMENOrdering Facility: [facility] Address: [address] [place] [address] Result Comment: Rosana mated Glomerular Filtration Rate (eGFR) is calculated using the 2020 CKD-EPI creatinine equation. This equation utilizes serum creatinine, sex, and age as parameters. The creatinine assay has traceable calibration to isotope dilution-mass spectrometry. Refer to KDIGO guidelines for clinical interpretation. In patients with unstable renal function, e.g. those with acute kidney injury, the eGFR may not accurately reflect actual GFR. Performed By: #### 1 920-8, 32773-9, 1742-6 ####[facility] [id number] [place] [address] [place] Creatinine and Glomerular fi ltration rate.predicted panel (S/P/Bld)on 10-19-2024 Creatinine [Mass/Vol] 0.75 mg/dL Normal 0.58-0.96 [facility] Comment on above: Order Comment: Yuridia men Type: BLOOD SPECIMENOrdering Facility: [facility] Address: [address] [place] [address] Performed By: #### 1 920-8, 69383-0, 1742-6 ####[facility] [id number] [address] Lipid 1996 panelon 5 Cholesterol [Mass/Vol] 180 mg/dL Normal <200 [facility] Comment on above: Order Comment: Speci men Type: BLOOD SPECIMENOrdering Facility: [facility] Address: [address] [place] [address] Result Comment: <200 mg/dL, Desirable 200-239 mg/dL, Borderline high >239 mg/dL, High Performed By: #### 2 4331-1 ####[facility] LABCLIA [id number] [address] [id number] [address] STATES [facility] Cholesterol in HDL [Mass/Vol] 49 mg/dL Normal >39 [facility] Comment on above: Order Comment: Speci men Type: BLOOD SPECIMENOrdering Facility: [facility] Address: [address] [place] [address] Result Comment: 40-5 9 mg/dL, Acceptable >59 mg/dL, High: Negative risk factor for coronary heart disease <40 mg/dL, Low: Positive risk factor for coronary heart disease Performed By: #### 2 4331-1 ####[facility] LABCLIA [id number] [address] [id number] [address] [place] Cholesterol in LDL [Mass/Vol] 109 mg/dL High <100 [facility] Comment on above: Order Comment: Speci men Type: BLOOD SPECIMENOrdering Facility: [facility] Address: [address] [place] [address] Result Comment: <100 mg/dL, Optimal 100-129 mg/dL, Near optimal/above optimal 130-159 mg/dL, Borderline high 160-189 mg/dL, High >189 mg/dL, Very high Secondary prevention optimal LDL Cholesterol levels are recommended to be <70 mg/dL LDL cholesterol is calculated using the Pacheco-NIH equation. Performed By: #### 2 4331-1 ####[facility] LABIA [id number] [id number] [place] [address] [place] [facility] Cholesterol in LDL/Cholesterol in HDL [Mass ratio] 2.22 {ratio} Normal <2.54 [facility] Comment on above: Order Comment: Speci men Type: BLOOD SPECIMENOrdering Facility: [facility] Address: [address] [place] [address] Result Comment: Refe pamela: 1. National Cholesterol Education Program ATP III Guideline At-A-Glance Quick Desk Reference: National Heart, Lung, and Blood [place]. National Institutes of Health. 2001: NIH Publication No. 01-3305. 2. An International Atherosclerosis Society position paper: global recommendations for the management of dyslipidemia: executive summary, Atherosclerosis. 2014: 232(2):410-413. Performed By: #### 2 4331-1 ####[facility] LABIA [id number] [address] [id number] [place] [address] [place] Cholesterol in VLDL [Mass/Vol] 21 mg/dL Normal <30 [facility] Comment on above: Order Comment: Speci men Type: BLOOD SPECIMENOrdering Facility: [facility] Address: [address] [place] [address] Performed By: #### 2 4331-1 ####[facility] LABIA [id number] [address] [id number] [place] [address] [place] Cholesterol non HDL [Mass/Vol] 131 mg/dL High <130 [facility] Comment on above: Order Comment: Speci men Type: BLOOD SPECIMENOrdering Facility: [facility] Address: [address] [place] [address] Result Comment: <130 mg/dL, Optimal 130-159 mg/dL, Near optimal/above optimal 160-189 mg/dL, Borderline high 190-219 mg/dL, High >219 mg/dL, Very high Secondary prevention optimal non HDL Cholesterol levels are recommended to be <100 mg/dL Performed By: #### 2 4331-1 ####[facility] LABCLIA [id number] [address] STATES [facility] [id number] [place] [address] [place] Cholesterol.total/Chol esterol in HDL [Mass ratio] 3.67 {ratio} Normal <5.10 [facility] Comment on above: Order Comment: Speci men Type: BLOOD SPECIMENOrdering Facility: [facility] Address: [address] [place] [address] Performed By: #### 2 4331-1 ####[facility] LABCLIA [id number] [address] STATES OF [facility] [id number] [place] [address] [place] FASTING TIME 14 hrs Normal [facility] Comment on above: Order Comment: Speci men Type: BLOOD SPECIMENOrdering Facility: [facility] Address: [address] [place] [address] Performed By: #### 2 4331-1 ####[facility] LABCLIA [id number] [address] [id number] [address] [place] Triglyceride [Mass/Vol] 123 mg/dL Normal <150 [facility] Comment on above: Order Comment: Speci men Type: BLOOD SPECIMENOrdering Facility: [facility] Address: [address] [place] [address] Result Comment: <150 mg/dL, Normal 150-199 mg/dL, Borderline high 200-499 mg/dL, High >499 mg/dL, Very high Performed By: #### 2 4331-1 ####[facility] LABCLIA [id number] [address] STATES OF [facility] CITYLIA [id number] [place] [id number] [place] [address] [place] CNOVon 10-16-2024 [facility] Office Visit (INTMWS ) RACHELLEBERENICE Toña ([id number]) 1965 F Date Time Provider Department 10/16/24 12:00 PM DAVID CHICAS INTMWS During your visit today, we recorded the following information about you: Pulse Respiration Blood pressure Weight 82/minute 16/minute 147/82 130.2 kg David Chicas MD 10/16/2024 12:49 PM Signed Reason for Visit Cat bite VIKTORIA Ng is a 59-year-old female presenting with a cat bite on her right hand that has worsened since the initial injury. Berenice was bitten by her cat, Bautista, on her right hand 3 days ago. She initially cleaned the wound with peroxide and then presented to the ER within 20 minutes, where the wound was cleaned with a washcloth and soap. She was prescribed Augmentin, which she has been taking BID as directed. She reports that the redness started last night and has since spread up to her wrist. She also notes significant swelling and pain in her index and middle fingers, with limited range of motion. She has been keeping the wound covered and applying Neosporin as instructed. Social History Tobacco Use Smoking status: Former Current packs/day: 0.00 Average packs/day: 0.5 packs/day for 20.0 years (10.0 ttl pk-yrs) Types: Cigarettes Start date: 04/22/1989 Quit date: 04/22/2009 Years since quittin.4 Smokeless tobacco: Never Vaping Use Vaping status: Never Used Substance Use Topics Alcohol use: No Drug use: No Past medical history, appointments, medications, allergies reviewed. Pertinent Lab/Diagnostic Studies are reviewed and discussed today Current Outpatient Medications: amoxicillin-clavulanat e potassium (AUGMENTIN) 875-125 mg per tablet sulfaSALAzine (AZULFIDINE) 500 mg tablet losartan (COZAAR) 100 mg tablet buPROPion XL (WELLBUTRIN XL) 150 mg 24 hr tablet topiramate (TOPAMAX) 100 mg tablet levothyroxine (SYNTHROID) 100 mcg tablet levothyroxine (SYNTHROID) 100 mcg tablet ezetimibe (ZETIA) 10 mg tablet cholecalciferol (VITAMIN D3) 5,000 unit tab sertraline (ZOLOFT) 100 mg tablet topiramate (TOPAMAX) 50 mg tablet lansoprazole (PREVACID) 30 mg capsule hydrOXYchloroQUINE (PLAQUENIL) 200 mg tablet folic acid 1 mg tablet metFORMIN ER (GLUCOPHAGE XR) 500 mg 24 hr tablet mometasone (ELOCON) 0.1 % cream diclofenac, EC, (VOLTAREN) 75 mg EC tablet omega-3 acid ethyl esters (LOVAZA) 1 gram capsule MV with Qyp-Aoqufqpu-Rnrihs (CENTRUM SILVER) 0.4-300-250 mg-mcg-mcg tab doxycycline monohydrate (MONODOX) 100 mg capsule Health Maintenance Anxiety Screening BP Controlled (<130/80) Shingrix Vaccine(1 of 2) Cervical Cancer Screening Covid-19 Vaccine(2023- season)@ Review Of Systems Musculoskeletal: (+) finger pain, (+) finger swelling, (+) limited range of motion Skin: (+) finger redness, (+) purulent discharge Psychiatric: (+) low mood Physical Exam BP 147/82 Pulse 82 Resp 16 Wt 130.2 kg (287 lb 0.6 oz) SpO2 96% BMI 43.64 kg/m? GENERAL: NAD, alert and oriented. SKIN: Erythema and significant swelling noted on the affected hand. Pus present at the site of the cat bite. HEAD: Normocephalic. EYES: PERRLA, EOMI, conjunctiva clear. LUNGS: Clear to auscultation bilaterally, no wheezes/rhonchi/rales. HEART: Regular rate and rhythm, no murmurs. No ectopy. EXTREMITIES: Significant swelling and erythema noted on the affected hand. Limited range of motion due to pain. Pulses palpable. NEURO: Awake, alert and oriented x3, cranial nerves II-XII grossly intact, normal gait, no involuntary motions. Assessment and Plan 1. Cat bite, subsequent encounter (W55.01XD) Cellulitis of right hand (L03.113) Significant swelling, erythema, and purulent discharge noted on the right hand. Limited range of motion due to pain and tightness. Patient has been on Augmentin for three days with minimal improvement. Concerns for potential compartment syndrome due to swelling and deep infection. - Initiated Doxycycline in addition to current Augmentin therapy. - Advised patient to take NSAIDs such as Motrin or Tylenol for pain management. - Educated patient on signs of worsening condition, including increased pain, swelling, or erythema, and instructed to seek immediate medical attention if symptoms do not improve within 24 hours or worsen. - Advised to keep the wound open to air, avoiding contamination from pets or dust. - Patient to keep me updated on progress. Voice recognition software was used to compose this office note. Please excuse any unintended typographical errors. Recording using ambient Tracky software for draft documentation of the visit was discussed with the patient/authorized patient representative; all questions welcomed and answered. Patient/authorized patient representative agreed to proceed David Herzog MD, MD 10/16/2024 12:29 PM Signed Allergies As of Date: 10/16/2024 Noted Allergy Reaction L (more content not included)... Normal [facility] Emergency Department Summary on 10-13-2024 Emergency Department Summary [facility] Medical Records Department [address] [place] [id number] Emergency Department Summary 10/13/24 MR#: [id number] Acct: [id number] Name: BERENICE GIVENS Rep #: [id number] : 1965 59 From: Anastasiya CHESTER PCP: Dr. David Chicas MD Status:DEP ER Location: ED HPI History of Present Illness Chief Complaint: Bite Narrative Narrative: 59-year-old was bit by her cat on her right hand. She has an indoor cat accidentally got outside and got in a fight with a neighborhood cat and she tried to break it up and her cat bit her right hand over the webspace between the thumb and index finger and on her forearm. She states her cat shots are up-to-date and her own personal tetanus shot is up-to-date. She denies weakness or numbness or tingling. She is right-hand dominant. [facility] Medical History (Updated 10/13/24 @ 21:[address] Rajiv Ni, DO) Shingles History of trigger finger Thyroid disorder Lupus Sleep apnea Bronchitis Home Medications ???Medication ???Instructions ???Recorded ???Last Taken ???Type cholecalciferol (vitamin D3) 125 125 mcg PO DAILY 03/27/20 Unknown History mcg (5,000 unit) capsule diclofenac sodium 75 mg 75 mg PO BID 03/27/20 Unknown Hist ory tablet,delayed release folic acid 1 mg tablet 1 mg PO BID 03/27/20 Unknown Histo ry lansoprazole 30 mg capsule,delayed 30 mg PO DAILY 03/27/20 Unknown History release (Prevacid) levothyroxine 75 mcg tablet 75 mcg PO DAILY 03/27/20 Unknown H istory (Synthroid) irknhlsz-npnjfqe-xoty- lutein tablet tab PO 03/27/20 Unknown History omega-3 fatty acids 1,000 mg 1,000 mg PO BID 03/27/20 Unknown H istory capsule ezetimibe 10 mg tablet 10 mg PO DAILY 12/09/22 Unknown Hi story albuterol sulfate 90 mcg/actuation 2 puff inhalation Q4H PRN Unknown Rx aerosol inhaler (Ventolin HFA) shortness of breath or wheezing #18 grams losartan 50 mg tablet 100 mg PO DAILY 12/10/23 Unknown H istory hydroxychloroquine 200 mg tablet 200 mg PO QDAY 06/21/24 Unknown Hi story (Plaquenil) hydroxychloroquine 200 mg tablet 400 mg PO QDAY 06/21/24 Unknown Hi story (Plaquenil) amoxicillin 875 mg-potassium 1 tab PO BID 7 days #14 tabs 10/13 Unknown Rx clavulanate 125 mg tablet Allergy/AdvReac Type Severity Reaction Status Date / Time azithromycin (From Zithromax AdvReac Mild Abdominal Verified 10/13/24 20:52 Z-Jose) cramping lisinopril AdvReac Mild Sleepy Verified 10/13/24 20:52 Family History Sister Breast cancer Surgical History History of carpal tunnel release History of cholecystectomy Social History Smoking Status: Former smoker how long ago did patient quit smokin alcohol intake: never substance use type: does not use ROS ROS ED ROS Narrative Neuro: Negative for motor/sensory dysfunction. Skin: Positive for bite. Musc: Negative for joint pain. EXAM Physical Exam Narrative Exam Narrative: CONST: Patient sitting in no acute distress. EYES: Normal inspection. NECK: Normal inspection. SKIN: Several puncture wounds on right dorsal hand in the webspace between the thumb and index finger and another linear abrasion on the right distal dorsal forearm. None of the wounds are open or gaping, no bleeding. EXTREMITIES: Full range of motion of right upper extremity, normal motor and sensory function in median radial and ulnar distributions, 2+ radial pulse and brisk cap refill. NEURO: Alert and answering questions appropriately. PSYCH: Normal affect. Const Vital Signs: 10/13/24 20:52 Temperature 96.8 F L Temperature Source Temporal Pulse Rate 105 H Respiratory Rate 16 Blood Pressure 183/84 H Blood Pressure Mean 117 Pulse Ox 95 Oxygen Delivery Method Room Air Physical Exam Const Vital Signs: 10/13/24 20:52 Temperature 96.8 F L Temperature Source Temporal Pulse Rate 105 H Respiratory Rate 16 Blood Pressure 183/84 H Blood Pressure Mean 117 Pulse Ox 95 Oxygen Delivery Method Room Air MDM MDM MDM Narrative Medical decision making narrative: Patient has bites on her right hand and forearm from her cat. They are puncture wounds and linear abrasions. She has full range of motion and is neurovascularly intact. No indication for x-ray. Wounds were cleansed dressed with bacitracin and a bandage. She was prescribed Augmentin and given wound care instructions and signs of infection that would warrant return. She believes her tetanus is up-to-date. She was discharged in stable condition MDM Treatment and Re-Evaluation (more content not included)... Normal [facility] ALT SerPl-cCncon 09-18-2024 ALT [Catalytic activity/Vol] 45 U/L High 7-38 [facility] Comment on above: Order Comment: Speci men Type: BLOOD SPECIMENOrdering Facility: [facility] Address: [address] [place] [address] Performed By: #### 1 742-6, 192-8, 64054-3 ####[facility] LABIA [id number] [place] [address] [place] AST SerPl-cCncon 09-18-2024 AST [Catalytic activity/Vol] 47 U/L High 13-35 [facility] Comment on above: Order Comment: Speci men Type: BLOOD SPECIMENOrdering Facility: [facility] Address: [address] [place] [address] Performed By: #### 1 742-6, 19208, 39637-8 ####[facility] HOSPITALIA [id number] [place] [address] [place] CBC panel Auto (Bld)on 09-18 Erythrocyte distribution width (RBC) [Ratio] 12.4 % Normal 11.5-15.0 [facility] Comment on above: Order Comment: Speci men Type: BLOOD SPECIMENOrdering Facility: [facility] Address: [address] [place] [address] Performed By: #### 5 8410-2 ####[facility] [id number] [place] [id number] [place] Hematocrit (Bld) [Volume fraction] 41.2 % Normal 36.0-46.0 [facility] Comment on above: Order Comment: Speci men Type: BLOOD SPECIMENOrdering Facility: [facility] Address: [address] [place] [address] Performed By: #### 5 8410-2 ####[facility] CAMILLESWARTHMOREBONIFACIO [id number] [place] [address] [place] Hemoglobin (Bld) [Mass/Vol] 13.5 g/dL Normal 11.5-15.5 [facility] Comment on above: Order Comment: Speci men Type: BLOOD SPECIMENOrdering Facility: [facility] Address: [address] [place] [address] Performed By: #### 5 8410-2 ####[facility] [id number] [place] [address] [place] MCH (RBC) [Entitic mass] 30.8 pg Normal 26.0-34.0 [facility] Comment on above: Order Comment: Speci men Type: BLOOD SPECIMENOrdering Facility: [facility] Address: [address] [place] [address] Performed By: #### 5 8410-2 ####[facility] DELANDNCRobert [id number] [place] [address] [place] MCHC (RBC) [Mass/Vol] 32.8 g/dL Normal 30.5-36.0 [facility] Comment on above: Order Comment: Speci men Type: BLOOD SPECIMENOrdering Facility: [facility] Address: [address] [place] [address] Performed By: #### 5 8410-2 ####[facility] DELANDNCL[facility] [id number] [place] [address] [place] MCV (RBC) [Entitic vol] 93.8 fL Normal 80.0-100.0 [facility] Comment on above: Order Comment: Speci men Type: BLOOD SPECIMENOrdering Facility: [facility] Address: [address] [place] [address] Performed By: #### 5 8410-2 ####[facility] MILLTOWNCLIA [id number] [place] [address] [place] Nucleated RBC (Bld) [#/Vol] 10*3/uL Normal <0.01 [facility] Comment on above: Order Comment: Speci men Type: BLOOD SPECIMENOrdering Facility: [facility] Address: [address] [place] [address] Performed By: #### 5 8410-2 ####[facility] DELANDNCL[facility] [id number] [place] [address] [place] Platelet mean volume (Bld) [Entitic vol] 9.3 fL Normal 9.0-12.7 [facility] Comment on above: Order Comment: Speci men Type: BLOOD SPECIMENOrdering Facility: [facility] Address: [address] [place] [address] Performed By: #### 5 8410-2 ####[facility] [id number] [place] [address] [place] Platelets (Bld) [#/Vol] 239 10*3/uL Normal 150-400 [facility] Comment on above: Order Comment: Speci men Type: BLOOD SPECIMENOrdering Facility: [facility] Address: [address] [place] [address] Performed By: #### 5 8410-2 ####[facility] SOUTHWNCLIA [id number] [place] [address] [place] RBC (Bld) [#/Vol] 4.39 10*6/uL Normal 3.90-5.20 [facility] Comment on above: Order Comment: Speci men Type: BLOOD SPECIMENOrdering Facility: [facility] Address: [address] [place] [address] Performed By: #### 5 8410-2 ####[facility]ANDNCL[facility] [id number] [place] [address] [place] WBC (Bld) [#/Vol] 8.69 10*3/uL Normal 3.70-11.00 [facility] Comment on above: Order Comment: Speci men Type: BLOOD SPECIMENOrdering Facility: [facility] Address: [address] [place] [address] Performed By: #### 5 8410-2 ####[facility] [id number] [place] [address] [place] Creatinine + eGFR Pnl SerPlB ldon 09-18-2024 Creatinine and Glomerular filtration rate.predicted panel (S/P/Bld) 86 mL/min/1.73m??? Normal >=60 [facility] Comment on above: Order Comment: Speci men Type: BLOOD SPECIMENOrdering Facility: [facility] Address: [address] [place] [address] Result Comment: Rosana mated Glomerular Filtration Rate (eGFR) is calculated using the 2020 CKD-EPI creatinine equation. This equation utilizes serum creatinine, sex, and age as parameters. The creatinine assay has traceable calibration to isotope dilution-mass spectrometry. Refer to KDIGO guidelines for clinical interpretation. In patients with unstable renal function, e.g. those with acute kidney injury, the eGFR may not accurately reflect actual GFR. Performed By: #### 1 742-6, 1920-8, 27654-2 ####[facility] LABCLIA [id number] [place] [address] [place] Creatinine and Glomerular fi ltration rate.predicted panel (S/P/Bld)on 09-18-2024 Creatinine [Mass/Vol] 0.79 mg/dL Normal 0.58-0.96 [facility] Comment on above: Order Comment: Speci men Type: BLOOD SPECIMENOrdering Facility: [facility] Address: [address] [place] [address] Performed By: #### 1 742-6, 1920-8, 85502-7 ####[facility] LABCLIA [id number] [place] [address] [place] ALT SerPl-cCncon 08-25-2024 ALT [Catalytic activity/Vol] 35 U/L Normal 7-38 [facility] Comment on above: Order Comment: Speci men Type: BLOOD SPECIMENOrdering Facility: [facility] Address: [address] [place] [address] Performed By: #### C RET1, 1746, 1919-12 ####[facility]ITALTOWNCLIA [id number] [place] [address] [place] AST SerPl-cCncon 08-25-2024 AST [Catalytic activity/Vol] 35 U/L Normal 13-35 [facility] Comment on above: Order Comment: Speci men Type: BLOOD SPECIMENOrdering Facility: [facility] Address: [address] [place] [address] Performed By: #### C RET1, 1741-10, 1919-12 ####[facility]ANDBONIFAC[facility] [id number] [place] [address] [place] CBC panel Auto (Bld)on 08-25 Erythrocyte distribution width (RBC) [Ratio] 12.4 % Normal 11.5-15.0 [facility] Comment on above: Order Comment: Speci men Type: BLOOD SPECIMENOrdering Facility: [facility] Address: [address] [place] [address] Performed By: #### 5 8410-2 ####[facility]ANDB[facility]IF[facility] [id number] [place] [address] [place] Hematocrit (Bld) [Volume fraction] 40.9 % Normal 36.0-46.0 [facility] Comment on above: Order Comment: Speci men Type: BLOOD SPECIMENOrdering Facility: [facility] Address: [address] [place] [address] Performed By: #### 5 8410-2 ####[facility] [id number] [place] [address] [place] Hemoglobin (Bld) [Mass/Vol] 13.2 g/dL Normal 11.5-15.5 [facility] Comment on above: Order Comment: Speci men Type: BLOOD SPECIMENOrdering Facility: [facility] Address: [address] [place] [address] Performed By: #### 5 8410-2 ####[facility] [id number] [place] [address] [place] MCH (RBC) [Entitic mass] 30.4 pg Normal 26.0-34.0 [facility] Comment on above: Order Comment: Speci men Type: BLOOD SPECIMENOrdering Facility: [facility] Address: [address] [place] [address] Performed By: #### 5 8410-2 ####[facility] [id number] [place] [address] [place] MCHC (RBC) [Mass/Vol] 32.3 g/dL Normal 30.5-36.0 [facility] Comment on above: Order Comment: Speci men Type: BLOOD SPECIMENOrdering Facility: [facility] Address: [address] [place] [address] Performed By: #### 5 8410-2 ####[facility] [id number] [place] [address] [place] MCV (RBC) [Entitic vol] 94.2 fL Normal 80.0-100.0 [facility] Comment on above: Order Comment: Speci men Type: BLOOD SPECIMENOrdering Facility: [facility] Address: [address] [place] [address] Performed By: #### 5 8410-2 ####[facility] [id number] [place] [address] [place] Nucleated RBC (Bld) [#/Vol] 10*3/uL Normal <0.01 [facility] Comment on above: Order Comment: Speci men Type: BLOOD SPECIMENOrdering Facility: [facility] Address: [address] [place] [address] Performed By: #### 5 8410-2 ####[facility] DELANDNCL[facility] [id number] [place] [address] [place] Platelet mean volume (Bld) [Entitic vol] 9.4 fL Normal 9.0-12.7 [facility] Comment on above: Order Comment: Speci men Type: BLOOD SPECIMENOrdering Facility: [facility] Address: [address] [place] [address] Performed By: #### 5 8410-2 ####[facility] [id number] [place] [address] [place] Platelets (Bld) [#/Vol] 230 10*3/uL Normal 150-400 [facility] Comment on above: Order Comment: Speci men Type: BLOOD SPECIMENOrdering Facility: [facility] Address: [address] [place] [address] Performed By: #### 5 8410-2 ####[facility] DELANDNCA [id number] [place] [address] [place] RBC (Bld) [#/Vol] 4.34 10*6/uL Normal 3.90-5.20 [facility] Comment on above: Order Comment: Speci men Type: BLOOD SPECIMENOrdering Facility: [facility] Address: [address] [place] [address] Performed By: #### 5 8410-2 ####[facility]ANDNCL[facility] [id number] [place] [address] [place] WBC (Bld) [#/Vol] 7.56 10*3/uL Normal 3.70-11.00 [facility] Comment on above: Order Comment: Yuridia mendoza Type: BLOOD SPECIMENOrdering Facility: [facility] Address: [facility] [address] Performed By: #### 5 8410-2 ####[facility]ANDMANSOOR [id number] [place] [address] [place] CREATININE BLDon 08-25-2024 Creatinine [Mass/Vol] 0.85 mg/dL Normal 0.58-0.96 [facility] Comment on above: Order Comment: Speclevar mendoza Type: BLOOD SPECIMENOrdering Facility: [facility] Address: [address] [place] [address] [place] [address] Performed By: #### C RET1, 1741-10, 1919-12 ####[facility] [id number] [address] Creatinine and Glomerular filtration rate.predicted panel (S/P/Bld) 79 mL/min/1.73m??? Normal >=60 [facility] Comment on above: Order Comment: Yuridia mendoza Type: BLOOD SPECIMENOrdering Facility: [facility] Address: [facility] [place] [address] Result Comment: Rosana mated Glomerular Filtration Rate (eGFR) is calculated using the 2020 CKD-EPI creatinine equation. This equation utilizes serum creatinine, sex, and age as parameters. The creatinine assay has traceable calibration to isotope dilution-mass spectrometry. Refer to KDIGO guidelines for clinical interpretation. In patients with unstable renal function, e.g. those with acute kidney injury, the eGFR may not accurately reflect actual GFR. Performed By: #### C RET1, 1741-10, 1919-12 ####[facility] [id number] [address] [facility] CNOVon 07-27-2024 CNOV Office Visit (INTMWS ) BERENICE GIVENS ([id number]) 1965 F Date Time Provider Department 07/27/24 11:20 AM MATTIE SOMERS During your visit today, we recorded the following information about you: Pulse Respiration Blood pressure Weight 79/minute 16/minute 136/80 130.2 kg Mattie Somers APRN.CUSTOM APPLICATOR 07/27/2024 2:44 PM Signed CC: Patient presents with: Recheck: Medication follow up HPI Berenice Givens is a 59 year old female who presents today for follow up. Was started on wellbutrin for ongoing fatigue and weight gain after blood work was unremarkable. Is walking on her treadmill regularly for exercise and has noticed this has decreased her appetite.Has lost 3 pounds as a result of the curb in her appetite. Trying to maintain a healthy diet Sleep: is described as normal Alcohol use: does not drink any alcohol Drug use: No Appetite: good Suicidal Thoughts: No suicidal ideation, intent or plan REVIEW OF SYSTEMS See HPI PAST MEDICAL HISTORY Diagnosis Date Abdominal pain, epigastric Cigarette smoker 06/27/2021 Depressive disorder, not elsewhere classified Diaphragmatic hernia without mention of obstruction or gangrene Lupus erythematosus Migraine, unspecified, with intractable migraine, so stated, without mention of status migrainosus Migraine Obstructive sleep apnea syndrome, severe with associated hypoxemia. patient declined to schedule follow up testing for CPAP Unspecified essential hypertension PAST SURGICAL HISTORY Procedure Laterality Date CHOLECYSTECTOMY 10/03 Cholecystectomy COLONOSCOPY FLX DX W/COLLJ SPEC WHEN PFRMD 12/10/2017 Colonoscopy ESOPHAGOGASTRODUODENOS COPY TRANSORAL DIAGNOSTIC EGD ESOPHAGOGASTRODUODENOS COPY TRANSORAL DIAGNOSTIC 12/10/2017 EGD PAST SURGICAL HISTORY OF trigger finger PAST SURGICAL HISTORY OF heel spur PAST SURGICAL HISTORY OF carpal tunnel PAST SURGICAL HISTORY OF 03/09/12 endovenous laser ablation of L great saphenous vein, small saphenous vein and vein of Giacomini ALLERGIES Lisinopril, Pravastatin, and Zithromax [Azithromycin] MEDICATIONS sulfaSALAzine (AZULFIDINE) 500 mg tablet Take 500 mg twice/day topiramate (TOPAMAX) 100 mg tablet Take 1 tablet by mouth every evening. levothyroxine (SYNTHROID) 100 mcg tablet Take 1 tablet by mouth daily before breakfast. levothyroxine (SYNTHROID) 100 mcg tablet Take 1 tablet by mouth daily before breakfast. buPROPion XL (WELLBUTRIN XL) 150 mg 24 hr tablet Take 1 tablet by mouth once daily. ezetimibe (ZETIA) 10 mg tablet Take 1 tablet by mouth once daily. cholecalciferol (VITAMIN D3) 5,000 unit tab Take 1 tablet by mouth once daily. sertraline (ZOLOFT) 100 mg tablet Take 1 tablet by mouth once daily. Forgot Rx when traveling, do not cancel [facility] Rx topiramate (TOPAMAX) 50 mg tablet Take 1 tablet by mouth daily at bedtime. lansoprazole (PREVACID) 30 mg capsule Take 1 capsule by mouth once daily. hydrOXYchloroQUINE (PLAQUENIL) 200 mg tablet Take 1 tablet by mouth two times a day. folic acid 1 mg tablet Take 2 tablets by mouth once daily. metFORMIN ER (GLUCOPHAGE XR) 500 mg 24 hr tablet Take 1 tablet by mouth daily with breakfast. Forgot Rx when traveling, do not cancel [facility] Rx losartan (COZAAR) 100 mg tablet Take 1 tablet by mouth once daily. mometasone (ELOCON) 0.1 % cream Apply 1 application to affected area once daily. diclofenac, EC, (VOLTAREN) 75 mg EC tablet Take 1 tablet by mouth twice daily. omega-3 acid ethyl esters (LOVAZA) 1 gram capsule TAKE 2 CAPSULES ONCE DAILY MV with Diz-Xxbfxdmq-Vvtkpc (CENTRUM SILVER) 0.4-300-250 mg-mcg-mcg tab Take 1 tablet by mouth once daily. FAMILY HISTORY Problem Relation Age of Onset Diabetes Mother Alzheimer's Disease Mother other (Polycythmeia vera) Father Breast Cancer Sister bilateral mastectomy other (HOCM with myocardial bridge) Sister Alzheimer's Disease Maternal Grandmother Heart Maternal Grandfather Cancer Paternal Grandfather Lung Alzheimer's Disease Maternal Aunt Alzheimer's Disease Maternal Uncle Alzheimer's Disease Maternal Uncle Social History Tobacco Use Smoking status: Former Current packs/day: 0.00 Average packs/day: 0.5 packs/day for 20.0 years (10.0 ttl pk-yrs) Types: Cigarettes Start date: 04/22/1989 Quit date: 04/22/2009 Years since quittin.2 Smokeless tobacco: Never Vaping Use Vaping status: Never Used Substance Use Topics Alcohol use: No Drug use: No PHYSICAL EXAM BP 136/80 Pulse 79 Resp 16 Wt 130.2 kg (287 lb) SpO2 97% BMI 43.64 kg/m? Appearance: well dressed well groomed, cooperative, and pleasant Behavior: good eye contact Speech: normal and fluent and coherent Mood: happy Affect: appropriate Perceptions: none Thought process: goal directed Thought Content: normal Intelligence level: normal Insight: good Judgm (more content not included)... Normal [facility] ALT SerPl-cCncon 07-24-2024 ALT [Catalytic activity/Vol] 56 U/L High 7-38 [facility] Comment on above: Order Comment: Speci men Type: BLOOD SPECIMENOrdering Facility: [facility] Address: [address] [place] [address] Performed By: #### 1 742-6, 1919-12, CRET1 ####[facility] [id number] [place] [address] [place] AST SerPl-cCncon 07-24-2024 AST [Catalytic activity/Vol] 52 U/L High 13-35 [facility] Comment on above: Order Comment: Speci men Type: BLOOD SPECIMENOrdering Facility: [facility] Address: [address] [place] [address] Performed By: #### 1 742-6, 1919-12, CRET1 ####[facility] [id number] [place] [address] [place] CBC panel Auto (Bld)on 07-24 Erythrocyte distribution width (RBC) [Ratio] 12.5 % Normal 11.5-15.0 [facility] Comment on above: Order Comment: Speci men Type: BLOOD SPECIMENOrdering Facility: [facility] Address: [address] [place] [address] Performed By: #### 5 8410-2 ####[facility] [id number] [place] [address] [place] Hematocrit (Bld) [Volume fraction] 40.7 % Normal 36.0-46.0 [facility] Comment on above: Order Comment: Speci men Type: BLOOD SPECIMENOrdering Facility: [facility] Address: [address] [place] [address] Performed By: #### 5 8410-2 ####[facility] [id number] [place] [address] [place] Hemoglobin (Bld) [Mass/Vol] 13.2 g/dL Normal 11.5-15.5 [facility] Comment on above: Order Comment: Speci men Type: BLOOD SPECIMENOrdering Facility: [facility] Address: [address] [place] [address] Performed By: #### 5 8410-2 ####[facility] [id number] [place] [address] [place] MCH (RBC) [Entitic mass] 30.6 pg Normal 26.0-34.0 [facility] Comment on above: Order Comment: Speci men Type: BLOOD SPECIMENOrdering Facility: [facility] Address: [address] [place] [address] Performed By: #### 5 8410-2 ####[facility] [id number] [place] [address] [place] MCHC (RBC) [Mass/Vol] 32.4 g/dL Normal 30.5-36.0 [facility] Comment on above: Order Comment: Speci men Type: BLOOD SPECIMENOrdering Facility: [facility] Address: [address] [place] [address] Performed By: #### 5 8410-2 ####[facility] [id number] [place] [address] [place] MCV (RBC) [Entitic vol] 94.4 fL Normal 80.0-100.0 [facility] Comment on above: Order Comment: Speci men Type: BLOOD SPECIMENOrdering Facility: [facility] Address: [address] [place] [address] Performed By: #### 5 8410-2 ####[facility] [id number] [place] [address] [place] Nucleated RBC (Bld) [#/Vol] 10*3/uL Normal <0.01 [facility] Comment on above: Order Comment: Speci men Type: BLOOD SPECIMENOrdering Facility: [facility] Address: [address] [place] [address] Performed By: #### 5 8410-2 ####[facility] [id number] [place] [address] [place] Platelet mean volume (Bld) [Entitic vol] 9.6 fL Normal 9.0-12.7 [facility] Comment on above: Order Comment: Speci men Type: BLOOD SPECIMENOrdering Facility: [facility] Address: [address] [place] [address] Performed By: #### 5 8410-2 ####[facility] [id number] [place] [address] [place] Platelets (Bld) [#/Vol] 224 10*3/uL Normal 150-400 [facility] Comment on above: Order Comment: Speci men Type: BLOOD SPECIMENOrdering Facility: [facility] Address: [address] [place] [address] Performed By: #### 5 8410-2 ####[facility] [id number] [place] [address] [place] RBC (Bld) [#/Vol] 4.31 10*6/uL Normal 3.90-5.20 [facility] Comment on above: Order Comment: Speci men Type: BLOOD SPECIMENOrdering Facility: [facility] Address: [address] [place] [address] Performed By: #### 5 8410-2 ####[facility] [id number] [place] [address] [place] WBC (Bld) [#/Vol] 8.44 10*3/uL Normal 3.70-11.00 [facility] Comment on above: Order Comment: Speci men Type: BLOOD SPECIMENOrdering Facility: [facility] Address: [address] [place] [address] Performed By: #### 5 8410-2 ####[facility] [id number] [place] [address] [place] CREATININE BLDon 07-24-2024 Creatinine [Mass/Vol] 0.85 mg/dL Normal 0.58-0.96 [facility] Comment on above: Order Comment: Speci men Type: BLOOD SPECIMENOrdering Facility: [facility] Address: [address] [place] [address] Performed By: #### 1 742-6, 1920-8, CRET1 ####[facility] [id number] [place] [address] [place] Creatinine and Glomerular filtration rate.predicted panel (S/P/Bld) 79 mL/min/1.73m??? Normal >=60 [facility] Comment on above: Order Comment: Speci men Type: BLOOD SPECIMENOrdering Facility: [facility] Address: [address] [place] [address] Result Comment: Rosana mated Glomerular Filtration Rate (eGFR) is calculated using the 2020 CKD-EPI creatinine equation. This equation utilizes serum creatinine, sex, and age as parameters. The creatinine assay has traceable calibration to isotope dilution-mass spectrometry. Refer to KDIGO guidelines for clinical interpretation. In patients with unstable renal function, e.g. those with acute kidney injury, the eGFR may not accurately reflect actual GFR. Performed By: #### 1 742-6, 1920-8, CRET1 ####[facility] [id number] [address] [place] Bam 06-29-2024 ELDERN Telephone (GOLDWS) BERENICE GIVENS ([id number]) 1965 F Date Time Provider Department 06/29/24 MATTIE SOMERS During your visit today, we recorded the following information about you: Mattie Somers APRN.CUSTOM APPLICATOR 06/29/2024 9:49 AM Signed Blood work overall in acceptable ranges. Does she want to start wellbutrin as discussed in appointment? This is the daily pill antidepressant we use for weight loss that increased motivation and decreases appetite. If so, what pharmacy? Thank you Mattie Somers APRN.CUSTOM APPLICATOR Staci Osorio MA 06/29/2024 10:23 AM Signed Patient notified and willing to start Wellbutrin, please send to [facility]. Allergies As of Date: 06/29/2024 Noted Allergy Reaction LISINOPRIL 06/04/2011 5 - Intolerance Comments: sleepy PRAVASTATIN 06/30/2013 15 - Contraindication-Medic al Bear* Comments: myositis ZITHROMAX (AZITHROMYCIN) 01/19/2008 Comments: Abdominal cramping Date Reviewed: 04/04/2024 Reviewed by: Marybeth Stringer LPN - Fully Assessed Reason for Visit: Results [95] Order(s):buPROPion XL (WELLBUTRIN XL) 150 mg 24 hr tabletTake 1 tablet by mouth once daily.Disp: 30 tabletRfl: 1 Prescriptions as of 06/30/2024 - buPROPion XL (WELLBUTRIN XL) 150 mg 24 hr tablet Take 1 tablet by mouth once daily. - sulfaSALAzine (AZULFIDINE) 500 mg tablet 500mg once/day x1 week, then 500mg twice/day thereafter - ezetimibe (ZETIA) 10 mg tablet Take 1 tablet by mouth once daily. - cholecalciferol (VITAMIN D3) 5,000 unit tab Take 1 tablet by mouth once daily. - sertraline (ZOLOFT) 100 mg tablet Take 1 tablet by mouth once daily. Forgot Rx when traveling, do not cancel [facility] Rx - topiramate (TOPAMAX) 50 mg tablet Take 1 tablet by mouth daily at bedtime. - gabapentin (NEURONTIN) 300 mg capsule Take 1 capsule by mouth three times a day for 10 days. - lansoprazole (PREVACID) 30 mg capsule Take 1 capsule by mouth once daily. - hydrOXYchloroQUINE (PLAQUENIL) 200 mg tablet Take 1 tablet by mouth two times a day. - folic acid 1 mg tablet Take 2 tablets by mouth once daily. - metFORMIN ER (GLUCOPHAGE XR) 500 mg 24 hr tablet Take 1 tablet by mouth daily with breakfast. Forgot Rx when traveling, do not cancel [facility] Rx - losartan (COZAAR) 100 mg tablet Take 1 tablet by mouth once daily. - topiramate (TOPAMAX) 100 mg tablet Take 1 tablet by mouth every evening. - levothyroxine (SYNTHROID) 100 mcg tablet TAKE 1 TABLET DAILY ON AN EMPTY STOMACH FOR THYROID - mometasone (ELOCON) 0.1 % cream Apply 1 application to affected area once daily. - diclofenac, EC, (VOLTAREN) 75 mg EC tablet Take 1 tablet by mouth twice daily. - omega-3 acid ethyl esters (LOVAZA) 1 gram capsule TAKE 2 CAPSULES ONCE DAILY - MV with Twf-Ypaltquu-Jqniqr (CENTRUM SILVER) 0.4-300-250 mg-mcg-mcg tab Take 1 tablet by mouth once daily. 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] 07/11/2013 Hyperlipidemia [E78.5] 07/13/2013 Morbid obesity (HCC) [E66.01] 09/16/2016 Prediabetes [R73.03] 09/16/2016 Encounter for long-term (current) use of medica*11/22/2017 Encounter for screening for malignant neoplasm *11/22/2017 Gastroesophageal reflux disease [K21.9] 11/22/2017 Tibialis tendinitis of both lower extremities [*06/27/2018 Peroneal tendinitis of both lower legs [M76.71,*06/27/2018 Migraine without aura and without status migrai*05/28/2021 Cigarette smoker [F17.210] 06/27/2021 08/26/2021 WHITNEY (dyspnea on exertion) [R06.09] 06/27/2021 Obstructive sleep apnea syndrome [G47.33] 06/27/2021 Renal colic [N23] 06/27/2021 Tobacco dependence in remission [F17.201] 06/27/2021 Obesity, Class III, BMI >= 40 [E66.01] 06/27/2021 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 Encounter Status:Closed by MATTIE SOMERS on 06/30/24 Normal [facility] 25(OH)D3 SerPl-mCncon 2024 25-hydroxyvitamin D3 [Mass/Vol] 81.7 ng/mL High 31.0-80.0 [facility] Comment on above: Order Comment: Speci men Type: BLOOD SPECIMENOrdering Facility: [facility] Address: [address] [place] [address] Performed By: #### 1 989-3 ####[facility] [id number] [address] [address] [place] CNOVon 06-26-2024 CNOV Office Visit (INTMWS ) BERENICE GIVENS ([id number]) 1965 F Date Time Provider Department 06/26/24 11:00 AM LIZBET MATTIE INTMWS During your visit today, we recorded the following information about you: Pulse Respiration Blood pressure Weight 78/minute 16/minute 134/82 131.5 kg Lizbet CLIFTON Phelps.CUSTOM APPLICATOR 06/26/2024 12:16 PM Signed CC: Patient presents with: Recheck: 6 month follow up HPI Berenice Givens is a 59 year old female who presents today for routine follow up. HTN: Ms. Givens denies headache, chest pain, palpitations, dyspnea, and peripheral edema. Patient denies any side effects of her medication(s) and is compliant with their regimen. She does not check BP's generally. Berenice works out regularly 3 times per week with walking on treadmill. She watches her diet for sodium, low fat and low cholesterol most of the time. Last 3 Encounter BP Readings: Date: BP: 06/26/2024 134/82 04/04/2024 132/76 04/01/2024 142/82 CHATO: Uses CPAP nightly with O2 bled in for average of 7 hours nightly. Gets restful sleep with use. Hypothyroidism: Taking medication as ordered. Always feels tired and has difficulty losing weight. Prediabetes: FBS in the 90s. Denies increase in thirst hunger or urination. REVIEW OF SYSTEMS General: no fevers, no chills, no night sweats, no recurrent infections, no change in appetite, no change in energy, and no significant changes in weight Respiratory: no cough, no wheezing, no shortness of breath, no hemoptysis PAST MEDICAL HISTORY Diagnosis Date Abdominal pain, epigastric Cigarette smoker 06/27/2021 Depressive disorder, not elsewhere classified Diaphragmatic hernia without mention of obstruction or gangrene Lupus erythematosus Migraine, unspecified, with intractable migraine, so stated, without mention of status migrainosus Migraine Obstructive sleep apnea syndrome, severe with associated hypoxemia. patient declined to schedule follow up testing for CPAP Unspecified essential hypertension PAST SURGICAL HISTORY Procedure Laterality Date CHOLECYSTECTOMY 10/03 Cholecystectomy COLONOSCOPY FLX DX W/COLLJ SPEC WHEN PFRMD 12/10/2017 Colonoscopy ESOPHAGOGASTRODUODENOS COPY TRANSORAL DIAGNOSTIC EGD ESOPHAGOGASTRODUODENOS COPY TRANSORAL DIAGNOSTIC 12/10/2017 EGD PAST SURGICAL HISTORY OF trigger finger PAST SURGICAL HISTORY OF heel spur PAST SURGICAL HISTORY OF carpal tunnel PAST SURGICAL HISTORY OF 03/09/12 endovenous laser ablation of L great saphenous vein, small saphenous vein and vein of Giacomini ALLERGIES Lisinopril, Pravastatin, and Zithromax [Azithromycin] MEDICATIONS sulfaSALAzine (AZULFIDINE) 500 mg tablet 500mg once/day x1 week, then 500mg twice/day thereafter ezetimibe (ZETIA) 10 mg tablet Take 1 tablet by mouth once daily. cholecalciferol (VITAMIN D3) 5,000 unit tab Take 1 tablet by mouth once daily. sertraline (ZOLOFT) 100 mg tablet Take 1 tablet by mouth once daily. Forgot Rx when traveling, do not cancel [facility] Rx topiramate (TOPAMAX) 50 mg tablet Take 1 tablet by mouth daily at bedtime. gabapentin (NEURONTIN) 300 mg capsule Take 1 capsule by mouth three times a day for 10 days. lansoprazole (PREVACID) 30 mg capsule Take 1 capsule by mouth once daily. hydrOXYchloroQUINE (PLAQUENIL) 200 mg tablet Take 1 tablet by mouth two times a day. folic acid 1 mg tablet Take 2 tablets by mouth once daily. metFORMIN ER (GLUCOPHAGE XR) 500 mg 24 hr tablet Take 1 tablet by mouth daily with breakfast. Forgot Rx when traveling, do not cancel [facility] Rx losartan (COZAAR) 100 mg tablet Take 1 tablet by mouth once daily. topiramate (TOPAMAX) 100 mg tablet Take 1 tablet by mouth every evening. levothyroxine (SYNTHROID) 100 mcg tablet TAKE 1 TABLET DAILY ON AN EMPTY STOMACH FOR THYROID mometasone (ELOCON) 0.1 % cream Apply 1 application to affected area once daily. diclofenac, EC, (VOLTAREN) 75 mg EC tablet Take 1 tablet by mouth twice daily. omega-3 acid ethyl esters (LOVAZA) 1 gram capsule TAKE 2 CAPSULES ONCE DAILY MV with Dki-Mwwvaome-Dnedlj (CENTRUM SILVER) 0.4-300-250 mg-mcg-mcg tab Take 1 tablet by mouth once daily. FAMILY HISTORY Problem Relation Age of Onset Diabetes Mother Alzheimer's Disease Mother other (Polycythmeia vera) Father Breast Cancer Sister bilateral mastectomy other (HOCM with myocardial bridge) Sister Alzheimer's Disease Maternal Grandmother Heart Maternal Grandfather Cancer Paternal Grandfather Lung Alzheimer's Disease Maternal Aunt Alzheimer's Disease Maternal Uncle Alzheimer's Disease Maternal Uncle Social History Tobacco Use Smoking status: Former Current packs/day: 0.00 Average packs/day: 0.5 packs/day for 20.0 years (10.0 ttl pk-yrs) Types: Cigarettes Start date: 04/22/1989 Quit date: 04/22/2009 Years since quittin.1 Smokeless tobacco: Never Vaping Use (more content not included)... Normal [facility] HbA1c (Bld)on 06-26-2024 Average glucose Estimated from glycated hemoglobin (Bld) [Mass/Vol] 111 mg/dL Normal [facility] Comment on above: Order Comment: Yuridia mendoza Type: BLOOD SPECIMENOrdering Facility: [facility] Address: [address] [place] [address] Result Comment: eAG: (Estimated average glucose) is a calculated value from HgbA1c and is patient representative of the average blood glucose level in the last 2-3 month period. Performed By: #### 5 5454-3 ####[facility] [id number] [facility] [id number] [place] [address] [place] HbA1c (Bld) [Mass fraction] 5.5 % Normal 4.3-5.6 [facility] Comment on above: Order Comment: Yuridia mendoza Type: BLOOD SPECIMENOrdering Facility: [facility] Address: [address] [place] [address] Result Comment: [place] Diabetes Association guidelines indicate that patients with HgbA1c in the range 5.7-6.4% are at increased risk for development of diabetes, and intervention by lifestyle modification may be beneficial. HgbA1c greater or equal to 6.5% is considered diagnostic of diabetes. Performed By: #### 5 5454-3 ####[facility] [id number] [place] [address] [place] T3Free SerPl-mCncon 06-26-19 25 Free T3 [Mass/Vol] 2.6 pg/mL Normal 2.3-4.1 [facility] Comment on above: Order Comment: Speci men Type: BLOOD SPECIMENOrdering Facility: [facility] Address: [address] [place] [address] Performed By: #### 2 132-9, 3051-0, 7, 6-3 ####[facility] LABIA [id number] [place] [address] [place] T4 Free SerPl-mCncon 025 Free T4 [Mass/Vol] 1.1 ng/dL Normal 0.9-1.7 [facility] Comment on above: Order Comment: Speci men Type: BLOOD SPECIMENOrdering Facility: [facility] Address: [address] [place] [address] Performed By: #### 2 132-9, 3051-0, 7, 3015-3 ####[facility] LABIA [id number] [place] [address] [place] TSH SerPl-aCncon 06-26-2024 TSH Qn 2.470 m[IU]/L Normal 0.270-4.200 [facility] Comment on above: Order Comment: Speci men Type: BLOOD SPECIMENOrdering Facility: [facility] Address: [address] [place] [address] Performed By: #### 2 132-9, 3051-0, 7, 6-3 ####[facility]CL[facility] [id number] [place] [address] [place] Vit B12 SerPl-mCncon 025 Cobalamin (Vitamin B12) [Mass/Vol] 575 pg/mL Normal 232-1245 [facility] Comment on above: Order Comment: Speci men Type: BLOOD SPECIMENOrdering Facility: [facility] Address: [address] [place] [address] Performed By: #### 2 132-9, 3051-0, 3024-7, 3016-3 ####[facility] LABCLIA [id number] [place] [id number] [place] ALT SerPl-cCncon 06-22-2024 ALT [Catalytic activity/Vol] 52 U/L High 7-38 [facility] Comment on above: Order Comment: Speci men Type: BLOOD SPECIMENOrdering Facility: [facility] Address: [address] [place] [address] Performed By: #### 1 920-8, CRET1, 1742-6 ####[facility] [id number] [place] [address] [place] AST SerPl-cCncon 06-22-2024 AST [Catalytic activity/Vol] 48 U/L High 13-35 [facility] Comment on above: Order Comment: Speci men Type: BLOOD SPECIMENOrdering Facility: [facility] Address: [address] [place] [address] Performed By: #### 1 920-8, CRET1, 1742-6 ####[facility] [id number] [place] [address] [place] CBC panel Auto (Bld)on 06-22 Erythrocyte distribution width (RBC) [Ratio] 11.9 % Normal 11.5-15.0 [facility] Comment on above: Order Comment: Speci men Type: BLOOD SPECIMENOrdering Facility: [facility] Address: [address] [place] [address] Performed By: #### 5 8410-2 ####[facility] [id number] [place] [address] [place] Hematocrit (Bld) [Volume fraction] 43.0 % Normal 36.0-46.0 [facility] Comment on above: Order Comment: Speci men Type: BLOOD SPECIMENOrdering Facility: [facility] Address: [address] [place] [address] Performed By: #### 5 8410-2 ####[facility] [id number] [place] [address] [place] Hemoglobin (Bld) [Mass/Vol] 13.9 g/dL Normal 11.5-15.5 [facility] Comment on above: Order Comment: Speci men Type: BLOOD SPECIMENOrdering Facility: [facility] Address: [address] [place] [address] Performed By: #### 5 8410-2 ####[facility] [id number] [place] [address] [place] MCH (RBC) [Entitic mass] 30.0 pg Normal 26.0-34.0 [facility] Comment on above: Order Comment: Speci men Type: BLOOD SPECIMENOrdering Facility: [facility] Address: [address] [place] [address] Performed By: #### 5 8410-2 ####[facility] [id number] [place] [address] [place] MCHC (RBC) [Mass/Vol] 32.3 g/dL Normal 30.5-36.0 [facility] Comment on above: Order Comment: Speci men Type: BLOOD SPECIMENOrdering Facility: [facility] Address: [address] [place] [address] Performed By: #### 5 8410-2 ####[facility] [id number] [place] [address] [place] MCV (RBC) [Entitic vol] 92.9 fL Normal 80.0-100.0 [facility] Comment on above: Order Comment: Speci men Type: BLOOD SPECIMENOrdering Facility: [facility] Address: [address] [place] [address] Performed By: #### 5 8410-2 ####[facility] [id number] [place] [address] [place] Nucleated RBC (Bld) [#/Vol] 10*3/uL Normal <0.01 [facility] Comment on above: Order Comment: Speci men Type: BLOOD SPECIMENOrdering Facility: [facility] Address: [address] [place] [address] Performed By: #### 5 8410-2 ####[facility] [id number] [place] [address] [place] Platelet mean volume (Bld) [Entitic vol] 9.5 fL Normal 9.0-12.7 [facility] Comment on above: Order Comment: Speci men Type: BLOOD SPECIMENOrdering Facility: [facility] Address: [address] [place] [address] Performed By: #### 5 8410-2 ####[facility] [id number] [place] [address] [place] Platelets (Bld) [#/Vol] 308 10*3/uL Normal 150-400 [facility] Comment on above: Order Comment: Speci men Type: BLOOD SPECIMENOrdering Facility: [facility] Address: [address] [place] [address] Performed By: #### 5 8410-2 ####[facility] [id number] [place] [address] [place] RBC (Bld) [#/Vol] 4.63 10*6/uL Normal 3.90-5.20 [facility] Comment on above: Order Comment: Speci men Type: BLOOD SPECIMENOrdering Facility: [facility] Address: [address] [place], [place] [address] Performed By: #### 5 8410-2 ####[facility] [id number] [place] [address] [place] WBC (Bld) [#/Vol] 10.37 10*3/uL Normal 3.70-11.00 [facility] Comment on above: Order Comment: Speci men Type: BLOOD SPECIMENOrdering Facility: [facility] Address: [address] [place] [address] Performed By: #### 5 8410-2 ####[facility] [id number] [place] [address] [place] CREATININE BLDon 06-22-2024 Creatinine [Mass/Vol] 0.72 mg/dL Normal 0.58-0.96 [facility] Comment on above: Order Comment: Speci men Type: BLOOD SPECIMENOrdering Facility: [facility] Address: [address] [place] [address] Performed By: #### 1 920-8, CRET1, 1742-6 ####[facility] [id number] [place] [address] [place] Creatinine and Glomerular filtration rate.predicted panel (S/P/Bld) 96 mL/min/1.73m??? Normal >=60 [facility] Comment on above: Order Comment: Speci men Type: BLOOD SPECIMENOrdering Facility: [facility] Address: [address] [place] [address] Result Comment: Rosana mated Glomerular Filtration Rate (eGFR) is calculated using the 2020 CKD-EPI creatinine equation. This equation utilizes serum creatinine, sex, and age as parameters. The creatinine assay has traceable calibration to isotope dilution-mass spectrometry. Refer to KDIGO guidelines for clinical interpretation. In patients with unstable renal function, e.g. those with acute kidney injury, the eGFR may not accurately reflect actual GFR. Performed By: #### 1 920-8, CRET1, 1742-6 ####[facility] [id number] [place] [address] [place] Pulmonary Visit Reporton Pulmonary Visit Report [facility] [address] [place] [address] OFFICE VISIT Date of Service: 06/21/24 MR#: [id number] Acct: [id number] Name: BERENICE GIVENS Rep #: [id number] : 1965 Provider: NINO Costa Age/Sex: 59/F Location: [facility].PMW Status: Signed Assessment and Plan Assessment and Plan (1) CHATO (obstructive sleep apnea): Status: Chronic Comment: AHI 130 Plan: Improved, the patient has gotten better control of her AHI with the use of her AutoPap and now side sleeping. She is using and benefiting from Pap therapy. Improved, the patient has gotten better no indication for titration study at this time. Contact the office for any new or worsening symptoms in the meantime. Follow-up in April 2025. (2) Smoking greater than 30 pack years: Status: Chronic Plan: Encourage ongoing smoking cessation. Repeat LDCT due in March 2025, ordered accordingly. Follow-up in April to discuss test results. (3) Obesity: Status: Chronic Qualifiers: Obesity type: due to excess calories Obesity classification: adult class 3 (BMI >= 40) Serious obesity comorbidity presence: with serious comorbidity Body mass index: BMI 40.0-44.9 Qualified Code(s): E66.01 - Morbid (severe) obesity due to excess calories; Z68.41 - Body mass index [BMI] 40.0-44.9, adult Plan: Complicates exam, plan, care and prognosis. Continue to encourage weight loss. Orders: Orders Low Dose CT Lung Screening 03/31/25 F17.200 - Nicotine dependence, unspecified, uncomplicated, F17.210 - Nicotine dependence, cigarettes, uncomplicated HPI 5 m fu Chief Complaint: Routine follow-up HPI Comments Details: This patient presents to the office today for follow-up of her obstructive sleep apnea complicated by history of nicotine abuse. She is ambulatory and currently on room air. She has not recently been seen in the ED or urgent care for any respiratory illness. She has not required any antibiotics or prednisone for any breathing problems. She reports that she recently had an upper respiratory infection, described as a common cold. She was able to successfully overcome it on her own and did not require any medications or interventions. She is not currently on any maintenance inhalers. She has not recently used albuterol. She denies any difficulty with shortness of breath. She denies any cough, sputum production or hemoptysis. She has not had any wheezing, chest tightness, chest pain or palpitations. She uses her PAP machine routinely. She denies any difficulty with dry mouth. She is not having morning headaches. She is not having excessive nocturia. She occasionally admits to a nap without her PAP device, however denies any nodding off to sleep unintentionally. If you recall, this patient quit smoking back in 2018. She does have a greater than 44-ztfn-dttn smoking history. Compliance report for the past 30 days shows 100% compliance and average use of 7 hours 5 minutes per night. Current setting is AutoPap 10-20 cmH2O pressure typically being utilized at 12.8-18.7 cm water. Residual AHI of 2.5 events per hour. Leaks do not appear to be. Test results personally reviewed with the patient: Low-dose CT lung screening completed on April 17, 2024. No mass, no pleural effusion or thickening, no pneumothorax. Recommendation is to continue screening with LDCT in 12 months. 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 DME Vendor: cpap with o2 dasco Accompanied by: Self Is patient in pain?: No Allergies azithromycin (From Zithromax Z-Jose) Adverse Reaction (Mild, Verified 06/21/24 09:31) Abdominal cramping lisinopril Adverse Reaction (Mild, Verified 06/21/24 09:31) Sleepy Medications ???Medication ???Instructions ???Recorded ???Confirmed ???Type cholecalciferol (vitamin D3) 125 125 mcg PO DAILY 03/27/20 06/21/24 History mcg (5,000 unit) capsule diclofenac sodium 75 mg 75 mg PO BID 03/27/20 06/21/24 History tablet,delayed release folic acid 1 mg tablet 1 mg PO BID 03/27/20 06/21/24 History lansoprazole 30 mg capsule,delayed 30 mg PO DAILY 03/27/20 06/21/24 History release (Prevacid) levothyroxine 75 mcg tablet 75 mcg PO DAILY 03/27/20 06/21/24 History (Synthroid) ppndterv-gjiqebv-bqqy- lutein tablet tab PO 03/27/20 06/21/24 History omega-3 fatty acids 1,00 (more content not included)... Normal [facility] Basic metabolic 2000 panelon 06-15-2024 Anion gap [Moles/Vol] 9 mmol/L Normal 8-15 [facility] Comment on above: Order Comment: Speci men Type: BLOOD SPECIMENOrdering Facility: [facility] Address: [address] [place] [address] Performed By: #### 2 4321-2 ####[facility] [id number] [place] [address] [place] Calcium [Mass/Vol] 10.3 mg/dL High 8.5-10.2 [facility] Comment on above: Order Comment: Speci men Type: BLOOD SPECIMENOrdering Facility: [facility] Address: [address] [place] [address] Performed By: #### 2 4321-2 ####[facility] [id number] [place] [address] [place] Chloride [Moles/Vol] 104 mmol/L Normal 98-107 [facility] Comment on above: Order Comment: Speci men Type: BLOOD SPECIMENOrdering Facility: [facility] Address: [address] [place], [place] [address] Performed By: #### 2 4321-2 ####[facility] [id number] [place] [address] [place] [facility] CO2 [Moles/Vol] 29 mmol/L Normal 22-30 [facility] Comment on above: Order Comment: Speci men Type: BLOOD SPECIMENOrdering Facility: [facility] Address: [address] [place] [address] Performed By: #### 2 4321-2 ####[facility] [id number] [address] [place] Creatinine [Mass/Vol] 0.78 mg/dL Normal 0.58-0.96 [facility] Comment on above: Order Comment: Speci men Type: BLOOD SPECIMENOrdering Facility: [facility] Address: [address] [place] [address] Performed By: #### 2 4321-2 ####[facility] [id number] [address] Creatinine and Glomerular filtration rate.predicted panel (S/P/Bld) 88 mL/min/1.73m??? Normal >=60 [facility] Comment on above: Order Comment: Speci men Type: BLOOD SPECIMENOrdering Facility: [facility] Address: [address] [place] [address] Result Comment: Rosana mated Glomerular Filtration Rate (eGFR) is calculated using the 2020 CKD-EPI creatinine equation. This equation utilizes serum creatinine, sex, and age as parameters. The creatinine assay has traceable calibration to isotope dilution-mass spectrometry. Refer to KDIGO guidelines for clinical interpretation. In patients with unstable renal function, e.g. those with acute kidney injury, the eGFR may not accurately reflect actual GFR. Performed By: #### 2 4321-2 ####[facility] [id number] [place] [address] [place] Glucose [Mass/Vol] 121 mg/dL High 74-99 [facility] Comment on above: Order Comment: Speci men Type: BLOOD SPECIMENOrdering Facility: [facility] Address: [address] [place] [address] Result Comment: The [place] Diabetes Association (ADA) provides guidance for cutoff values for fasting glucose and random glucose. The ADA defines fasting as no caloric intake for at least 8 hours. Fasting plasma glucose results between 100 to 125 mg/dL indicate increased risk for diabetes (prediabetes). Fasting plasma glucose results greater than or equal to 126 mg/dL meet the criteria for diagnosis of diabetes. In the absence of unequivocal hyperglycemia, results should be confirmed by repeat testing. In a patient with classic symptoms of hyperglycemia or hyperglycemic crisis, random plasma glucose results greater than or equal to 200 mg/dL meet the criteria for diagnosis of diabetes. Reference: Standards of Medical Care in Diabetes 2016, [place] Diabetes Association. Diabetes Care. 2016.39(Suppl 1). Performed By: #### 2 4321-2 ####[facility] [id number] [place] [address] [place] Potassium [Moles/Vol] 4.1 mmol/L Normal 3.7-5.1 [facility] Comment on above: Order Comment: Speci men Type: BLOOD SPECIMENOrdering Facility: [facility] Address: [address] [place], [place] [address] Performed By: #### 2 4321-2 ####[facility] [id number] [place] [address] [place] Sodium [Moles/Vol] 142 mmol/L Normal 136-144 [facility] Comment on above: Order Comment: Speci men Type: BLOOD SPECIMENOrdering Facility: [facility] Address: [address] [place], [place] [address] Performed By: #### 2 4321-2 ####[facility] [id number] [place] [address] [place] Urea nitrogen [Mass/Vol] 18 mg/dL Normal 7-21 [facility] Comment on above: Order Comment: Speci men Type: BLOOD SPECIMENOrdering Facility: [facility] Address: [address] [place] [address] Performed By: #### 2 4321-2 ####[facility] [id number] [place] [address] [place] Spine Cervical (Routine)on 0 06-05-2024 Spine Cervical (Routine) [facility] Services [address] [place] [address] Spine Cervical (Routine) MR#: [id number] Acct: [id number] Name: BERENICE GIVENS Rep #: [id number] : 1965 F 59 From: Tee Merrill MD PCP: Dr. David Chicas MD Status: REG CLI Study: Spine Cervical (Routine) Date of Exam: Exam# [id number] Ordering Dr: Elvia Bowers [place] [id number] STUDY: MRI CERVICAL SPINE WITHOUT CONTRAST REASON FOR EXAM: Female, 59 years old. Neck pain and stiffness. Trouble turning head to left. Radiculopathy. TECHNIQUE: Standardized fat and water weighted pulse sequences were obtained in the sagittal and axial planes. COMPARISON: Cervical spine radiographs 07/19/2019. FINDINGS: Normal foramen magnum and brainstem-cervical cord junction. Normal craniovertebral junction. Normal anterior atlantoaxial articulation. Normal odontoid process. Mild straightening of the C-spine curvature. No recent or remote fractures of the vertebral bodies and posterior osseous elements. No cervical degenerative inflammatory arthropathy. No malalignment of the cervical spine, craniocervical junction and cervicothoracic junction. C2-3: Normal endplates. Normal disc height, signal and morphology. Normal central canal and intervertebral neural foramina. C3-4: Normal endplates. Normal disc height, signal and morphology. Normal central canal and intervertebral neural foramina. C4-5: Normal endplates. Normal disc height, signal and morphology. Normal central canal and intervertebral neural foramina. C5-6: Normal endplates. Moderate disc space height narrowing. Anterior posterior spurs. Normal central canal and left intervertebral neuroforamen. Moderate stenosis of the right intervertebral neuroforamen due to prominent osteophyte arising from the right uncovertebral joint. C6-7: Normal endplates. Moderate disc space height narrowing. Anterior and posterior marginal spurs. Normal central canal and right intervertebral neuroforamen. Mild stenosis of the left intervertebral neuroforamen due to osteophyte arising from the left uncovertebral joint. C7-T1: Normal endplates. Normal disc height, signal and morphology. Normal central canal and intervertebral neural foramina. T1-T2 and T2-T3: (Sagittal only). Normal endplates. Normal disc height, signal and morphology. Normal central canal and intervertebral neuroforamina. Normal cervical cord. Normal upper thoracic spinal cord. Normal included midline brainstem and cerebellum. Normal visualized soft tissue structures. MRI/Spine Cervical (Routine) IMPRESSION: 1. Moderate stenosis of the right C5-C6 intervertebral neuroforamen due to prominent osteophyte arising from the right uncovertebral joint. 2. Mild stenosis of the left C6-C7 intervertebral neuroforamen due to small osteophyte arising from the left uncovertebral joint. 3. No MRI evidence of cervical extruded disc fragment. 4. Normal cervical spinal cord. Electronically Signed: Tee Merrill MD at 15:41 EST , CC: Dr. Elvia Bowers MD; Dr. David Chicas MD Corporate Quality Manager: Signed [facility] 05-19-2024 [facility] Telephone (Tango) BERENICE GIVENS ([id number]) 1965 F Date Time Provider Department 05/19/24 DARRELL JACK During your visit today, we recorded the following information about you: Keshia Givens RN 05/19/2024 8:51 AM Signed ----- Message from Darrell Jack MD sent at 05/18/2024 5:56 PM EST ----- Please call her to let her know the ultrasound shows some active inflammation in various joints in the wrists and both hands. I'd advise that we do a virtual visit on 06/21/24 at 2:20pm if that would work for her. Thanks Allergies As of Date: 05/19/2024 Noted Allergy Reaction LISINOPRIL 06/04/2011 5 - Intolerance Comments: sleepy PRAVASTATIN 06/30/2013 15 - Contraindication-Medic al Bear* Comments: myositis ZITHROMAX (AZITHROMYCIN) 01/19/2008 Comments: Abdominal cramping Date Reviewed: 04/04/2024 Reviewed by: Marybeth Stringer LPN - Fully Assessed Prescriptions as of 05/19/2024 - ezetimibe (ZETIA) 10 mg tablet Take 1 tablet by mouth once daily. - cholecalciferol (VITAMIN D3) 5,000 unit tab Take 1 tablet by mouth once daily. - sertraline (ZOLOFT) 100 mg tablet Take 1 tablet by mouth once daily. Forgot Rx when traveling, do not cancel [facility] - topiramate (TOPAMAX) 50 mg tablet Take 1 tablet by mouth daily at bedtime. - gabapentin (NEURONTIN) 300 mg capsule Take 1 capsule by mouth three times a day for 10 days. - lansoprazole (PREVACID) 30 mg capsule Take 1 capsule by mouth once daily. - hydrOXYchloroQUINE (PLAQUENIL) 200 mg tablet Take 1 tablet by mouth two times a day. - folic acid 1 mg tablet Take 2 tablets by mouth once daily. - metFORMIN ER (GLUCOPHAGE XR) 500 mg 24 hr tablet Take 1 tablet by mouth daily with breakfast. Forgot Rx when traveling, do not cancel [facility] Rx - losartan (COZAAR) 100 mg tablet Take 1 tablet by mouth once daily. - topiramate (TOPAMAX) 100 mg tablet Take 1 tablet by mouth every evening. - levothyroxine (SYNTHROID) 100 mcg tablet TAKE 1 TABLET DAILY ON AN EMPTY STOMACH FOR THYROID - mometasone (ELOCON) 0.1 % cream Apply 1 application to affected area once daily. - diclofenac, EC, (VOLTAREN) 75 mg EC tablet Take 1 tablet by mouth twice daily. - omega-3 acid ethyl esters (LOVAZA) 1 gram capsule TAKE 2 CAPSULES ONCE DAILY - MV with Ohk-Pdgisamo-Lftbkp (CENTRUM SILVER) 0.4-300-250 mg-mcg-mcg tab Take 1 tablet by mouth once daily. Problem List As Of Date 05/19/2024 Noted Resolved DISC LUP ERYTHEMATOS LID [H01.129] 05/18/2005 CHOLECYSTITIS SEE ALSO GALLBLADDER CHRONIC [K*10/12/2005 Hypothyroidism [E03.9] 11/06/2005 Lupus erythematosus [L93.0] 11/06/2005 Essential hypertension [I10] DEPRESSIVE DISORDER NEC [F32.89] ABDOMINAL PAIN EPIGASTRIC [R10.13] ACUTE GASTRITIS W/O HEMORRHAGE [K29.00] 11/13/2008 DIAPHRAGMATIC HERNIA [K44.9] 11/13/2008 Hyperglycemia [R73.9] 06/04/2011 Statin myopathy [G72.0, T46.6X5A] 07/11/2013 Hyperlipidemia [E78.5] 07/13/2013 Morbid obesity (HCC) [E66.01] 09/16/2016 Prediabetes [R73.03] 09/16/2016 Encounter for long-term (current) use of medica*11/22/2017 Encounter for screening for malignant neoplasm *11/22/2017 Gastroesophageal reflux disease [K21.9] 11/22/2017 Tibialis tendinitis of both lower extremities [*06/27/2018 Peroneal tendinitis of both lower legs [M76.71,*06/27/2018 Migraine without aura and without status migrai*05/28/2021 Cigarette smoker [F17.210] 06/27/2021 08/26/2021 WHITNEY (dyspnea on exertion) [R06.09] 06/27/2021 Obstructive sleep apnea syndrome [G47.33] 06/27/2021 Renal colic [N23] 06/27/2021 Tobacco dependence in remission [F17.201] 06/27/2021 Obesity, Class III, BMI >= 40 [E66.01] 06/27/2021 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 No tenosynovitis in either hand or wrist. Corporate Quality Manager: PSCB Transcribe Date/Time: May 18 2024 1:16P Dictated by : SARA HOUSER MD This examination was interpreted and the report reviewed and electronically signed by: SARA HOUSER MD on May 18 2024 1:56PM [facility] DIVISION OF RADIOLOGY Radiology Study observation (narrative) [facility] No Panel InformationOrdered By: Ccf Provider on 05-18-2024 [facility] US HAND/WRIST SYNOVIAL SCREE N LTon 05-18-2024 US HAND/WRIST SYNOVIAL SCREEN LT * * *Final Report* * * DATE OF EXAM: May 18 2024 1:15PM [facility] 1198 - US HAND/WRIST SYNOVIAL SCREEN LT / PROCEDURE REASON: Pain in joint, multiple sites * * * * Physician Interpretation * * * * MSK_US SYNOVITIS SCREENING ULTRASOUND OF THE HANDS AND WRISTS: CLINICAL INFORMATION: Chronic bilateral hand/wrist pain/swelling. Pain in joint, multiple sites TECHNIQUE: Boyd-scale, real-time ultrasound of both the right and left hand and wrist synovium and tenosynovium was performed with power Doppler examination. Images were saved to the permanent image archive. COMPARISON: US 02/24/2022, x-ray 12/23/2021. FINDINGS: RIGHT SIDE: RIGHT MCP AND PIP JOINT SYNOVIUM: 2ND MCP: Hypertrophy: Minimal. Power Doppler: Minimal. 2ND PIP: Hypertrophy: Minimal. Power Doppler: Minimal. 3RD MCP: Hypertrophy: Minimal. Power Doppler: Minimal. 3RD PIP: Hypertrophy: Minimal. Power Doppler: Minimal. 4TH MCP: Hypertrophy: Minimal. Power Doppler: Minimal. 4TH PIP: Hypertrophy: Minimal. Power Doppler: Minimal. 5TH MCP: Hypertrophy: Minimal. Power Doppler: Minimal. 5TH PIP: Hypertrophy: Minimal. Power Doppler: Minimal. RIGHT EXTENSOR AND FLEXOR TENOSYNOVIUM: 2ND Digit Flexor: Hypertrophy: None. Power Doppler: None. 2ND Digit Extensor: Hypertrophy: None. Power Doppler: None. 3RD Digit Flexor: Hypertrophy: None. Power Doppler: None. 3RD Digit Extensor: Hypertrophy: None. Power Doppler: None. 4TH Digit Flexor: Hypertrophy: None. Power Doppler: None. 4TH Digit Extensor: Hypertrophy: None. Power Doppler: None. 5TH Digit Flexor: Hypertrophy: None. Power Doppler: None. 5TH Digit Extensor: Hypertrophy: None. Power Doppler: None. CARPUS Synovitis: Hypertrophy: Minimal. Power Doppler: Minimal. OTHER: None. LEFT SIDE: LEFT MCP AND PIP JOINT SYNOVIUM: 2ND MCP: Hypertrophy: Minimal. Power Doppler: Minimal. 2ND PIP: Hypertrophy: Minimal. Power Doppler: Minimal. 3RD MCP: Hypertrophy: Minimal. Power Doppler: Minimal. 3RD PIP: Hypertrophy: Minimal. Power Doppler: Minimal. 4TH MCP: Hypertrophy: Minimal. Power Doppler: Minimal. 4TH PIP: Hypertrophy: None. Power Doppler: None. 5TH MCP: Hypertrophy: Minimal. Power Doppler: Minimal. 5TH PIP: Hypertrophy: None. Power Doppler: None. LEFT EXTENSOR AND FLEXOR TENOSYNOVIUM: 2ND Digit Flexor: Hypertrophy: None. Power Doppler: None. 2ND Digit Extensor: Hypertrophy: None. Power Doppler: None. 3RD Digit Flexor: Hypertrophy: None. Power Doppler: None. 3RD Digit Extensor: Hypertrophy: None. Power Doppler: None. 4TH Digit Flexor: Hypertrophy: None. Power Doppler: None. 4TH Digit Extensor: Hypertrophy: None. Power Doppler: None. 5TH Digit Flexor: Hypertrophy: None. Power Doppler: None. 5TH Digit Extensor: Hypertrophy: None. Power Doppler: None. CARPUS Synovitis: Hypertrophy: Minimal. Power Doppler: Minimal. OTHER: None. IMPRESSION: Minimal active synovitis of the wrists, multiple bilateral MCP joints, right PIP joints and left second and third PIP joints. No tenosynovitis in either hand or wrist. Corporate Quality Manager: LINDA Transcribe Date/Time: May 18 2024 1:16P Dictated by : SARA HOUSER MD This examination was interpreted and the report reviewed and electronically signed by: SARA HOUSER MD on May 18 2024 1:56PM EST [id number] Normal [facility] US HAND/WRIST SYNOVIAL SCREE N RTon 05-18-2024 US HAND/WRIST SYNOVIAL SCREEN RT * * *Final Report* * * DATE OF EXAM: May 18 2024 1:00PM [facility] 1197 - US HAND/WRIST SYNOVIAL SCREEN RT / PROCEDURE REASON: Pain in joint, multiple sites * * * * Physician Interpretation * * * * MSK_US SYNOVITIS SCREENING ULTRASOUND OF THE HANDS AND WRISTS: CLINICAL INFORMATION: Chronic bilateral hand/wrist pain/swelling. Pain in joint, multiple sites TECHNIQUE: Boyd-scale, real-time ultrasound of both the right and left hand and wrist synovium and tenosynovium was performed with power Doppler examination. Images were saved to the permanent image archive. COMPARISON: US 02/24/2022, x-ray 12/23/2021. FINDINGS: RIGHT SIDE: RIGHT MCP AND PIP JOINT SYNOVIUM: 2ND MCP: Hypertrophy: Minimal. Power Doppler: Minimal. 2ND PIP: Hypertrophy: Minimal. Power Doppler: Minimal. 3RD MCP: Hypertrophy: Minimal. Power Doppler: Minimal. 3RD PIP: Hypertrophy: Minimal. Power Doppler: Minimal. 4TH MCP: Hypertrophy: Minimal. Power Doppler: Minimal. 4TH PIP: Hypertrophy: Minimal. Power Doppler: Minimal. 5TH MCP: Hypertrophy: Minimal. Power Doppler: Minimal. 5TH PIP: Hypertrophy: Minimal. Power Doppler: Minimal. RIGHT EXTENSOR AND FLEXOR TENOSYNOVIUM: 2ND Digit Flexor: Hypertrophy: None. Power Doppler: None. 2ND Digit Extensor: Hypertrophy: None. Power Doppler: None. 3RD Digit Flexor: Hypertrophy: None. Power Doppler: None. 3RD Digit Extensor: Hypertrophy: None. Power Doppler: None. 4TH Digit Flexor: Hypertrophy: None. Power Doppler: None. 4TH Digit Extensor: Hypertrophy: None. Power Doppler: None. 5TH Digit Flexor: Hypertrophy: None. Power Doppler: None. 5TH Digit Extensor: Hypertrophy: None. Power Doppler: None. CARPUS Synovitis: Hypertrophy: Minimal. Power Doppler: Minimal. OTHER: None. LEFT SIDE: LEFT MCP AND PIP JOINT SYNOVIUM: 2ND MCP: Hypertrophy: Minimal. Power Doppler: Minimal. 2ND PIP: Hypertrophy: Minimal. Power Doppler: Minimal. 3RD MCP: Hypertrophy: Minimal. Power Doppler: Minimal. 3RD PIP: Hypertrophy: Minimal. Power Doppler: Minimal. 4TH MCP: Hypertrophy: Minimal. Power Doppler: Minimal. 4TH PIP: Hypertrophy: None. Power Doppler: None. 5TH MCP: Hypertrophy: Minimal. Power Doppler: Minimal. 5TH PIP: Hypertrophy: None. Power Doppler: None. LEFT EXTENSOR AND FLEXOR TENOSYNOVIUM: 2ND Digit Flexor: Hypertrophy: None. Power Doppler: None. 2ND Digit Extensor: Hypertrophy: None. Power Doppler: None. 3RD Digit Flexor: Hypertrophy: None. Power Doppler: None. 3RD Digit Extensor: Hypertrophy: None. Power Doppler: None. 4TH Digit Flexor: Hypertrophy: None. Power Doppler: None. 4TH Digit Extensor: Hypertrophy: None. Power Doppler: None. 5TH Digit Flexor: Hypertrophy: None. Power Doppler: None. 5TH Digit Extensor: Hypertrophy: None. Power Doppler: None. CARPUS Synovitis: Hypertrophy: Minimal. Power Doppler: Minimal. OTHER: None. IMPRESSION: Minimal active synovitis of the wrists, multiple bilateral MCP joints, right PIP joints and left second and third PIP joints. No tenosynovitis in either hand or wrist. Corporate Quality Manager: [facility] Transcribe Date/Time: May 18 2024 1:16P Dictated by : SARA HOUSER MD This examination was interpreted and the report reviewed and electronically signed by: SARA HOUSER MD on May 18 2024 1:56PM EST [id number] Normal [facility] US Upper extremity - lefton 05-18-2024 * * *Final Report* * * DATE OF EXAM: May 18 2024 1:15PM [facility] 1198 - US HAND/WRIST SYNOVIAL SCREEN LT / PROCEDURE REASON: Pain in joint, multiple sites * * * * Physician Interpretation * * * * [facility]_US SYNOVITIS SCREENING ULTRASOUND OF THE HANDS AND WRISTS: CLINICAL INFORMATION: Chronic bilateral hand/wrist pain/swelling. Pain in joint, multiple sites TECHNIQUE: Boyd-scale, real-time ultrasound of both the right and left hand and wrist synovium and tenosynovium was performed with power Doppler examination. Images were saved to the permanent image archive. COMPARISON: US 02/24/2022, x-ray 12/23/2021. FINDINGS: RIGHT SIDE: RIGHT MCP AND PIP JOINT SYNOVIUM: 2ND MCP: Hypertrophy: Minimal. Power Doppler: Minimal. 2ND PIP: Hypertrophy: Minimal. Power Doppler: Minimal. 3RD MCP: Hypertrophy: Minimal. Power Doppler: Minimal. 3RD PIP: Hypertrophy: Minimal. Power Doppler: Minimal. 4TH MCP: Hypertrophy: Minimal. Power Doppler: Minimal. 4TH PIP: Hypertrophy: Minimal. Power Doppler: Minimal. 5TH MCP: Hypertrophy: Minimal. Power Doppler: Minimal. 5TH PIP: Hypertrophy: Minimal. Power Doppler: Minimal. RIGHT EXTENSOR AND FLEXOR TENOSYNOVIUM: 2ND Digit Flexor: Hypertrophy: None. Power Doppler: None. 2ND Digit Extensor: Hypertrophy: None. Power Doppler: None. 3RD Digit Flexor: Hypertrophy: None. Power Doppler: None. 3RD Digit Extensor: Hypertrophy: None. Power Doppler: None. 4TH Digit Flexor: Hypertrophy: None. Power Doppler: None. 4TH Digit Extensor: Hypertrophy: None. Power Doppler: None. 5TH Digit Flexor: Hypertrophy: None. Power Doppler: None. 5TH Digit Extensor: Hypertrophy: None. Power Doppler: None. CARPUS Synovitis: Hypertrophy: Minimal. Power Doppler: Minimal. OTHER: None. LEFT SIDE: LEFT MCP AND PIP JOINT SYNOVIUM: 2ND MCP: Hypertrophy: Minimal. Power Doppler: Minimal. 2ND PIP: Hypertrophy: Minimal. Power Doppler: Minimal. 3RD MCP: Hypertrophy: Minimal. Power Doppler: Minimal. 3RD PIP: Hypertrophy: Minimal. Power Doppler: Minimal. 4TH MCP: Hypertrophy: Minimal. Power Doppler: Minimal. 4TH PIP: Hypertrophy: None. Power Doppler: None. 5TH MCP: Hypertrophy: Minimal. Power Doppler: Minimal. 5TH PIP: Hypertrophy: None. Power Doppler: None. LEFT EXTENSOR AND FLEXOR TENOSYNOVIUM: 2ND Digit Flexor: Hypertrophy: None. Power Doppler: None. 2ND Digit Extensor: Hypertrophy: None. Power Doppler: None. 3RD Digit Flexor: Hypertrophy: None. Power Doppler: None. 3RD Digit Extensor: Hypertrophy: None. Power Doppler: None. 4TH Digit Flexor: Hypertrophy: None. Power Doppler: None. 4TH Digit Extensor: Hypertrophy: None. Power Doppler: None. 5TH Digit Flexor: Hypertrophy: None. Power Doppler: None. 5TH Digit Extensor: Hypertrophy: None. Power Doppler: None. CARPUS Synovitis: Hypertrophy: Minimal. Power Doppler: Minimal. OTHER: None. DIVISION OF RADIOLOGY Provider, Calli Moore - 05/18/2024 * * *Final Report* * * DATE OF EXAM: May 18 2024 1:15PM [facility] 1198 - US HAND/WRIST SYNOVIAL SCREEN LT / PROCEDURE REASON: Pain in joint, multiple sites * * * * Physician Interpretation * * * * [facility] [place] SCRE[place] ULTRASOUND OF THE HANDS AND WRISTS: CLINICAL INFORMATION: Chronic bilateral hand/wrist pain/swelling. Pain in joint, multiple sites TECHNIQUE: Boyd-scale, real-time ultrasound of both the right and left hand and wrist synovium and tenosynovium was performed with power Doppler examination. Images were saved to the permanent image archive. v1-2019 COMPARISON: US 02/24/2022, x-ray 12/23/2021. FINDINGS: RIGHT SIDE: RIGHT MCP AND PIP JOINT SYNOVIUM: 2ND MCP: Hypertrophy: Minimal. Power Doppler: Minimal. 2ND PIP: Hypertrophy: Minimal. Power Doppler: Minimal. 3RD MCP: Hypertrophy: Minimal. Power Doppler: Minimal. 3RD PIP: Hypertrophy: Minimal. Power Doppler: Minimal. 4TH MCP: Hypertrophy: Minimal. Power Doppler: Minimal. 4TH PIP: Hypertrophy: Minimal. Power Doppler: Minimal. 5TH MCP: Hypertrophy: Minimal. Power Doppler: Minimal. 5TH PIP: Hypertrophy: Minimal. Power Doppler: Minimal. RIGHT EXTENSOR AND FLEXOR TENOSYNOVIUM: 2ND Digit Flexor: Hypertrophy: None. Power Doppler: None. 2ND Digit Extensor: Hypertrophy: None. Power Doppler: None. 3RD Digit Flexor: Hypertrophy: None. Power Doppler: None. 3RD Digit Extensor: Hypertrophy: None. Power Doppler: None. 4TH Digit Flexor: Hypertrophy: None. Power Doppler: None. 4TH Digit Extensor: Hypertrophy: None. Power Doppler: None. 5TH Digit Flexor: Hypertrophy: None. Power Doppler: None. 5TH Digit Extensor: Hypertrophy: None. Power Doppler: None. CARPUS Synovitis: Hypertrophy: Minimal. Power Doppler: Minimal. OTHER: None. LEFT SIDE: LEFT MCP AND PIP JOINT SYNOVIUM: 2ND MCP: Hypertrophy: Minimal. Power Doppler: Minimal. 2ND PIP: Hypertrophy: Minimal. Power Doppler: Minimal. 3RD MCP: Hypertrophy: Minimal. Power Doppler: Minimal. 3RD PIP: Hypertrophy: Minimal. Power Doppler: Minimal. 4TH MCP: Hypertrophy: Minimal. Power Doppler: Minimal. 4TH PIP: Hypertrophy: None. Power Doppler: None. 5TH MCP: Hypertrophy: Minimal. Power Doppler: Minimal. 5TH PIP: Hypertrophy: None. Power Doppler: None. LEFT EXTENSOR AND FLEXOR TENOSYNOVIUM: 2ND Digit Flexor: Hypertrophy: None. Power Doppler: None. 2ND Digit Extensor: Hypertrophy: None. Power Doppler: None. 3RD Digit Flexor: Hypertrophy: None. Power Doppler: None. 3RD Digit Extensor: Hypertrophy: None. Power Doppler: None. 4TH Digit Flexor: Hypertrophy: None. Power Doppler: None. 4TH Digit Extensor: Hypertrophy: None. Power Doppler: None. 5TH Digit Flexor: Hypertrophy: None. Power Doppler: None. 5TH Digit Extensor: Hypertrophy: None. Power Doppler: None. CARPUS Synovitis: Hypertrophy: Minimal. Power Doppler: Minimal. OTHER: None. IMPRESSION IMPRESSION: Minimal active synovitis of the wrists, multiple bilateral MCP joints, right PIP joints and left second and third PIP joints. No tenosynovitis in either hand or wrist. Corporate Quality Manager: [employer] Transcribe Date/Time: May 18 2024 1:16P Dictated by : SARA HOUSER MD This examination was interpreted and the report reviewed and electronically signed by: SARA HOUSER MD on May 18 2024 1:56PM [facility] US Upper extremity - righton 05-18-2024 * * *Final Report* * * DATE OF EXAM: May 18 2024 1:00PM [facility] 1197 - US HAND/WRIST SYNOVIAL SCREEN RT / PROCEDURE REASON: Pain in joint, multiple sites * * * * Physician Interpretation * * * * COK_US SYNOVITIS SCREENING ULTRASOUND OF THE HANDS AND WRISTS: CLINICAL INFORMATION: Chronic bilateral hand/wrist pain/swelling. Pain in joint, multiple sites TECHNIQUE: Boyd-scale, real-time ultrasound of both the right and left hand and wrist synovium and tenosynovium was performed with power Doppler examination. Images were saved to the permanent image archive. -2019 COMPARISON: US 02/24/2022, x-ray 12/23/2021. FINDINGS: RIGHT SIDE: RIGHT MCP AND PIP JOINT SYNOVIUM: 2ND MCP: Hypertrophy: Minimal. Power Doppler: Minimal. 2ND PIP: Hypertrophy: Minimal. Power Doppler: Minimal. 3RD MCP: Hypertrophy: Minimal. Power Doppler: Minimal. 3RD PIP: Hypertrophy: Minimal. Power Doppler: Minimal. 4TH MCP: Hypertrophy: Minimal. Power Doppler: Minimal. 4TH PIP: Hypertrophy: Minimal. Power Doppler: Minimal. 5TH MCP: Hypertrophy: Minimal. Power Doppler: Minimal. 5TH PIP: Hypertrophy: Minimal. Power Doppler: Minimal. RIGHT EXTENSOR AND FLEXOR TENOSYNOVIUM: 2ND Digit Flexor: Hypertrophy: None. Power Doppler: None. 2ND Digit Extensor: Hypertrophy: None. Power Doppler: None. 3RD Digit Flexor: Hypertrophy: None. Power Doppler: None. 3RD Digit Extensor: Hypertrophy: None. Power Doppler: None. 4TH Digit Flexor: Hypertrophy: None. Power Doppler: None. 4TH Digit Extensor: Hypertrophy: None. Power Doppler: None. 5TH Digit Flexor: Hypertrophy: None. Power Doppler: None. 5TH Digit Extensor: Hypertrophy: None. Power Doppler: None. CARPUS Synovitis: Hypertrophy: Minimal. Power Doppler: Minimal. OTHER: None. LEFT SIDE: LEFT MCP AND PIP JOINT SYNOVIUM: 2ND MCP: Hypertrophy: Minimal. Power Doppler: Minimal. 2ND PIP: Hypertrophy: Minimal. Power Doppler: Minimal. 3RD MCP: Hypertrophy: Minimal. Power Doppler: Minimal. 3RD PIP: Hypertrophy: Minimal. Power Doppler: Minimal. 4TH MCP: Hypertrophy: Minimal. Power Doppler: Minimal. 4TH PIP: Hypertrophy: None. Power Doppler: None. 5TH MCP: Hypertrophy: Minimal. Power Doppler: Minimal. 5TH PIP: Hypertrophy: None. Power Doppler: None. LEFT EXTENSOR AND FLEXOR TENOSYNOVIUM: 2ND Digit Flexor: Hypertrophy: None. Power Doppler: None. 2ND Digit Extensor: Hypertrophy: None. Power Doppler: None. 3RD Digit Flexor: Hypertrophy: None. Power Doppler: None. 3RD Digit Extensor: Hypertrophy: None. Power Doppler: None. 4TH Digit Flexor: Hypertrophy: None. Power Doppler: None. 4TH Digit Extensor: Hypertrophy: None. Power Doppler: None. 5TH Digit Flexor: Hypertrophy: None. Power Doppler: None. 5TH Digit Extensor: Hypertrophy: None. Power Doppler: None. CARPUS Synovitis: Hypertrophy: Minimal. Power Doppler: Minimal. OTHER: None. DIVISION OF RADIOLOGY Provider, [facility] - 05/18/2024 * * *Final Report* * * DATE OF EXAM: May 18 2024 1:00PM [facility] 1197 - US HAND/WRIST SYNOVIAL SCREEN RT / PROCEDURE REASON: Pain in joint, multiple sites * * * * Physician Interpretation * * * * [facility]_US SYNOVITIS SCREENING ULTRASOUND OF THE HANDS AND WRISTS: CLINICAL INFORMATION: Chronic bilateral hand/wrist pain/swelling. Pain in joint, multiple sites TECHNIQUE: Boyd-scale, real-time ultrasound of both the right and left hand and wrist synovium and tenosynovium was performed with power Doppler examination. Images were saved to the permanent image archive. -2019 COMPARISON: US 02/24/2022, x-ray 12/23/2021. FINDINGS: RIGHT SIDE: RIGHT MCP AND PIP JOINT SYNOVIUM: 2ND MCP: Hypertrophy: Minimal. Power Doppler: Minimal. 2ND PIP: Hypertrophy: Minimal. Power Doppler: Minimal. 3RD MCP: Hypertrophy: Minimal. Power Doppler: Minimal. 3RD PIP: Hypertrophy: Minimal. Power Doppler: Minimal. 4TH MCP: Hypertrophy: Minimal. Power Doppler: Minimal. 4TH PIP: Hypertrophy: Minimal. Power Doppler: Minimal. 5TH MCP: Hypertrophy: Minimal. Power Doppler: Minimal. 5TH PIP: Hypertrophy: Minimal. Power Doppler: Minimal. RIGHT EXTENSOR AND FLEXOR TENOSYNOVIUM: 2ND Digit Flexor: Hypertrophy: None. Power Doppler: None. 2ND Digit Extensor: Hypertrophy: None. Power Doppler: None. 3RD Digit Flexor: Hypertrophy: None. Power Doppler: None. 3RD Digit Extensor: Hypertrophy: None. Power Doppler: None. 4TH Digit Flexor: Hypertrophy: None. Power Doppler: None. 4TH Digit Extensor: Hypertrophy: None. Power Doppler: None. 5TH Digit Flexor: Hypertrophy: None. Power Doppler: None. 5TH Digit Extensor: Hypertrophy: None. Power Doppler: None. CARPUS Synovitis: Hypertrophy: Minimal. Power Doppler: Minimal. OTHER: None. LEFT SIDE: LEFT MCP AND PIP JOINT SYNOVIUM: 2ND MCP: Hypertrophy: Minimal. Power Doppler: Minimal. 2ND PIP: Hypertrophy: Minimal. Power Doppler: Minimal. 3RD MCP: Hypertrophy: Minimal. Power Doppler: Minimal. 3RD PIP: Hypertrophy: Minimal. Power Doppler: Minimal. 4TH MCP: Hypertrophy: Minimal. Power Doppler: Minimal. 4TH PIP: Hypertrophy: None. Power Doppler: None. 5TH MCP: Hypertrophy: Minimal. Power Doppler: Minimal. 5TH PIP: Hypertrophy: None. Power Doppler: None. LEFT EXTENSOR AND FLEXOR TENOSYNOVIUM: 2ND Digit Flexor: Hypertrophy: None. Power Doppler: None. 2ND Digit Extensor: Hypertrophy: None. Power Doppler: None. 3RD Digit Flexor: Hypertrophy: None. Power Doppler: None. 3RD Digit Extensor: Hypertrophy: None. Power Doppler: None. 4TH Digit Flexor: Hypertrophy: None. Power Doppler: None. 4TH Digit Extensor: Hypertrophy: None. Power Doppler: None. 5TH Digit Flexor: Hypertrophy: None. Power Doppler: None. 5TH Digit Extensor: Hypertrophy: None. Power Doppler: None. CARPUS Synovitis: Hypertrophy: Minimal. Power Doppler: Minimal. OTHER: None. IMPRESSION IMPRESSION: Minimal active synovitis of the wrists, multiple bilateral MCP joints, right PIP joints and left second and third PIP joints. No tenosynovitis in either hand or wrist. Corporate Quality Manager: [employer] Transcribe Date/Time: May 18 2024 1:16P Dictated by : SARA HOUSER MD This examination was interpreted and the report reviewed and electronically signed by: SARA HOUSER MD on May 18 2024 1:56PM EST [facility] Low Dose CT Lung Screeningon 04-17-[address] Lung Screening [facility] Imaging Services [address] [place] [id number] Lung Screening MR#: [id number] Acct: [id number] Name: BERENICE GIVENS Rep #: [id number] : 1965 F 59 From: Enrique Lay MD PCP: Dr. David Chicas MD Status: [facility] Study: Low Dose CT Lung Screening Date of Exam: 04/17 Exam# [id number] Ordering Dr: Patricia Costa ACREAGE REPORTER ACREAGE REPORTER-C [id number] EXAM: CT CHEST, LUNG CANCER SCREENING WITHOUT INTRAVENOUS CONTRAST CLINICAL INDICATION: smoker TECHNIQUE: Helically acquired images were obtained of the chest without intravenous contrast using low dose (LDCT) lung cancer screening protocol. This CT exam was performed using one or more of the following dose reduction techniques: automated exposure control, adjustment of the mA and/or kV according to patient size, and/or use of iterative reconstruction technique. COMPARISON: 04/13/2023 FINDINGS: LUNGS AND PLEURAL SPACES: There is minimal scarring in the left lung base. No mass. No pleural effusion or thickening. No pneumothorax. HEART: Unremarkable. Heart size is normal. No pericardial effusion. No significant coronary artery calcifications. MEDIASTINUM: Unremarkable. No mediastinal or hilar adenopathy. Esophagus is unremarkable. No hiatal hernia. THYROID: Unremarkable. No thyroid lesions. BONES/JOINTS: Unremarkable. No suspicious lytic or blastic abnormality. VASCULATURE: Unremarkable. Thoracic aorta is non-dilated. LYMPH NODES: Unremarkable. No enlarged lymph nodes. CT/Low Dose CT Lung Screening IMPRESSION: No evidence of pulmonary nodules. There is minimal left basilar scarring. There has been no change from the reference exam. Lung-RADS score: 1 - Recommend continued annual screening with a low-dose CT (LDCT) in 12 months. Electronically Signed: Enrique Lay MD at 0:00 EST , CC: NINO Costa; Dr. David Chicas MD Corporate Quality Manager: Signed [facility] CNOVon 04-04-2024 [facility] Office Visit (FAMPWS ) BERENICE GIVENS ([id number]) 1965 F Date Time Provider Department 04/04/24 2:40 PM LOUANN DAMON During your visit today, we recorded the following information about you: Pulse Respiration Blood pressure Weight 82/minute 12/minute 132/76 131.1 kg Height 1.727 m Louann Damon PA-C 04/04/2024 2:59 PM Signed 04/04/2024 Patient presents with: Same Day Appointment: shingles since Wednesday , left flank, painful 10/07 SUBJECTIVE: This is a 59 year old that is here today for complaint of shingles. She was seen Wednesday at and prescribed Valtrex. Still having new symptoms. Pain is intense. Taking tylenol prn, not helping per patient. Denies fever/chills. PAST MEDICAL HISTORY Diagnosis Date Abdominal pain, epigastric Cigarette smoker 06/27/2021 Depressive disorder, not elsewhere classified Diaphragmatic hernia without mention of obstruction or gangrene Lupus erythematosus Migraine, unspecified, with intractable migraine, so stated, without mention of status migrainosus Migraine Obstructive sleep apnea syndrome, severe with associated hypoxemia. patient declined to schedule follow up testing for CPAP Unspecified essential hypertension ALLERGIES Lisinopril, Pravastatin, and Zithromax [Azithromycin] MEDICATIONS Current Outpatient Medications Medication Sig topiramate (TOPAMAX) 50 mg tablet Take 1 tablet by mouth daily at bedtime. valACYclovir (VALTREX) 1 gram tablet Take 1 tablet by mouth three times a day for 7 days. lansoprazole (PREVACID) 30 mg capsule Take 1 capsule by mouth once daily. hydrOXYchloroQUINE (PLAQUENIL) 200 mg tablet Take 1 tablet by mouth two times a day. folic acid 1 mg tablet Take 2 tablets by mouth once daily. metFORMIN ER (GLUCOPHAGE XR) 500 mg 24 hr tablet Take 1 tablet by mouth daily with breakfast. Forgot Rx when traveling, do not cancel [facility] Rx sertraline (ZOLOFT) 100 mg tablet Take 1 tablet by mouth once daily. Forgot Rx when traveling, do not cancel [facility] Rx losartan (COZAAR) 100 mg tablet Take 1 tablet by mouth once daily. topiramate (TOPAMAX) 100 mg tablet Take 1 tablet by mouth every evening. levothyroxine (SYNTHROID) 100 mcg tablet TAKE 1 TABLET DAILY ON AN EMPTY STOMACH FOR THYROID ezetimibe (ZETIA) 10 mg tablet Take 1 tablet by mouth once daily. cholecalciferol (VITAMIN D3) 5,000 unit tab Take 1 tablet by mouth once daily. mometasone (ELOCON) 0.1 % cream Apply 1 application to affected area once daily. diclofenac, EC, (VOLTAREN) 75 mg EC tablet Take 1 tablet by mouth twice daily. omega-3 acid ethyl esters (LOVAZA) 1 gram capsule TAKE 2 CAPSULES ONCE DAILY MV with Jcc-Krgrrucy-Ompokb (CENTRUM SILVER) 0.4-300-250 mg-mcg-mcg tab Take 1 tablet by mouth once daily. No current facility-administered medications for this visit. SOCIAL HISTORY Social History Tobacco Use Smoking status: Former Current packs/day: 0.00 Average packs/day: 0.5 packs/day for 20.0 years (10.0 ttl pk-yrs) Types: Cigarettes Start date: 04/22/1989 Quit date: 04/22/2009 Years since quittin.9 Smokeless tobacco: Never Vaping Use Vaping status: Never Used Substance Use Topics Alcohol use: No Drug use: No REVIEW OF SYSTEMS See HPI OBJECTIVE: BP 132/76 (BP Site: Left Arm, BP Position: Sitting, BP Cuff Size: Large Adult) Pulse 82 Resp 12 Ht 172.7 cm (5' 8) Wt 131.1 kg (289 lb) SpO2 96% BMI 43.94 kg/m? APPEARANCE Well appearing, alert, in no acute distress, well-hydrated, well nourished. SKIN Skin: vesicles on an erythematous base clustered along left flank and left lower abdomen. ASSESSMENT/PLAN: 1. Herpes zoster without complication - ICD9: 053.9, ICD10: B02.9 Continue and finish valtrex. Contact office if still having new eruptions of lesions after completing antiviral. Start gabapentin prn. Discussed starting and titration. Discussed possible SE. - GABAPENTIN 300 MG CAPSULE The patient indicates understanding of these issues and agrees with the plan. Reviewed red flags and when to seek care sooner. Louann Damon PA-C Allergies As of Date: 04/04/2024 Noted Allergy Reaction LISINOPRIL 06/04/2011 5 - Intolerance Comments: sleepy PRAVASTATIN 06/30/2013 15 - Contraindication-Medic al Bear* Comments: myositis ZITHROMAX (AZITHROMYCIN) 01/19/2008 Comments: Abdominal cramping Date Reviewed: 04/04/2024 Reviewed by: Marybeth Stringer LPN - Fully Assessed Reason for Visit: Same Day Appointment [255] Cmt: shingles since Wednesday , left flank, painful 10/07 Primary Visit Diagnosis:Herpes zoster without complication [B02.9] Order(s):gabapentin (NEURONTIN) 300 mg capsuleTake 1 capsule by mouth three times a day for 10 days.Disp: 30 capsuleRfl: 0 Prescriptions as of 04/04/2024 - topiramate (TOPAMAX) 50 mg tablet Take 1 tablet by mouth daily at bedtime. - gabapentin (NE (more content not included)... Normal [facility]am 04-04-2024 [facility] Telephone (INTMWS) BERENICE GIVENS ([id number]) 1965 F Date Time Provider Department 04/04/24 DAVID CHICAS During your visit today, we recorded the following information about you: Dennise Palomares RN 04/04/2024 1:59 PM Signed Patient calls and states that she was seen in [facility] care on 04/01/2024 and was diagnosed with Shingles. Patient reports that she has a lot of pain with shingles and is asking if gabapentin can be prescribed. Advised patient that she would need to set up appointment for medication. Patient voiced understanding. Patient scheduled to see Louann Damon today 04/04/2024. Dennise Palomares RN Allergies As of Date: 04/04/2024 Noted Allergy Reaction LISINOPRIL 06/04/2011 5 - Intolerance Comments: sleepy PRAVASTATIN 06/30/2013 15 - Contraindication-Medic al Bear* Comments: myositis ZITHROMAX (AZITHROMYCIN) 01/19/2008 Comments: Abdominal cramping Date Reviewed: 04/04/2024 Reviewed by: Eddie Wilson APRN.CUSTOM APPLICATOR - Fully Assessed Reason for Visit: Patient Update [1234] Prescriptions as of 04/04/2024 - topiramate (TOPAMAX) 50 mg tablet Take 1 tablet by mouth daily at bedtime. - valACYclovir (VALTREX) 1 gram tablet Take 1 tablet by mouth three times a day for 7 days. - lansoprazole (PREVACID) 30 mg capsule Take 1 capsule by mouth once daily. - hydrOXYchloroQUINE (PLAQUENIL) 200 mg tablet Take 1 tablet by mouth two times a day. - folic acid 1 mg tablet Take 2 tablets by mouth once daily. - metFORMIN ER (GLUCOPHAGE XR) 500 mg 24 hr tablet Take 1 tablet by mouth daily with breakfast. Forgot Rx when traveling, do not cancel [facility] Rx - sertraline (ZOLOFT) 100 mg tablet Take 1 tablet by mouth once daily. Forgot Rx when traveling, do not cancel [facility] Rx - losartan (COZAAR) 100 mg tablet Take 1 tablet by mouth once daily. - topiramate (TOPAMAX) 100 mg tablet Take 1 tablet by mouth every evening. - levothyroxine (SYNTHROID) 100 mcg tablet TAKE 1 TABLET DAILY ON AN EMPTY STOMACH FOR THYROID - ezetimibe (ZETIA) 10 mg tablet Take 1 tablet by mouth once daily. - cholecalciferol (VITAMIN D3) 5,000 unit tab Take 1 tablet by mouth once daily. - mometasone (ELOCON) 0.1 % cream Apply 1 application to affected area once daily. - diclofenac, EC, (VOLTAREN) 75 mg EC tablet Take 1 tablet by mouth twice daily. - omega-3 acid ethyl esters (LOVAZA) 1 gram capsule TAKE 2 CAPSULES ONCE DAILY - MV with Ddz-Xoermklk-Zgbeyg (CENTRUM SILVER) 0.4-300-250 mg-mcg-mcg tab Take 1 tablet by mouth once daily. Problem List As Of Date 04/04/2024 Noted Resolved DISC LUP ERYTHEMATOS LID [H01.129] 05/18/2005 CHOLECYSTITIS SEE ALSO GALLBLADDER CHRONIC [K*10/12/2005 Hypothyroidism [E03.9] 11/06/2005 Lupus erythematosus [L93.0] 11/06/2005 Essential hypertension [I10] DEPRESSIVE DISORDER NEC [F32.89] ABDOMINAL PAIN EPIGASTRIC [R10.13] ACUTE GASTRITIS W/O HEMORRHAGE [K29.00] 11/13/2008 DIAPHRAGMATIC HERNIA [K44.9] 11/13/2008 Hyperglycemia [R73.9] 06/04/2011 Statin myopathy [G72.0, T46.6X5A] 07/11/2013 Hyperlipidemia [E78.5] 07/13/2013 Morbid obesity (HCC) [E66.01] 09/16/2016 Prediabetes [R73.03] 09/16/2016 Encounter for long-term (current) use of medica*11/22/2017 Encounter for screening for malignant neoplasm *11/22/2017 Gastroesophageal reflux disease [K21.9] 11/22/2017 Tibialis tendinitis of both lower extremities [*06/27/2018 Peroneal tendinitis of both lower legs [M76.71,*06/27/2018 Migraine without aura and without status migrai*05/28/2021 Cigarette smoker [F17.210] 06/27/2021 08/26/2021 WHITNEY (dyspnea on exertion) [R06.09] 06/27/2021 Obstructive sleep apnea syndrome [G47.33] 06/27/2021 Renal colic [N23] 06/27/2021 Tobacco dependence in remission [F17.201] 06/27/2021 Obesity, Class III, BMI >= 40 [E66.01] 06/27/2021 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 Subjective Berenice Toña Givens is a 59 year old female. HPI Patient presents with a chief complaint of a rash over the past 3 weeks. She had 1 spot 3 weeks ago which did not change much but then the past 2 days started to get multiple spots on her left back and flank area. She states it is itchy, not painful. No other new exposures. She is not sure if she had chickenpox as a child. Denies fever. Review of Systems Constitutional: Negative. HENT: Negative. Respiratory: Negative. Cardiovascular: Negative. Gastrointestinal: Negative. Skin: Positive for rash. All other systems reviewed and are negative. PAST MEDICAL HISTORY Diagnosis Date Abdominal pain, epigastric Cigarette smoker 06/27/2021 Depressive disorder, not elsewhere classified Diaphragmatic hernia without mention of obstruction or gangrene Lupus erythematosus Migraine, unspecified, with intractable migraine, so stated, without mention of status migrainosus Migraine Obstructive sleep apnea syndrome, severe with associated hypoxemia. patient declined to schedule follow up testing for CPAP Unspecified essential hypertension Current Outpatient Medications Medication Sig Dispense Refill lansoprazole (PREVACID) 30 mg capsule Take 1 capsule by mouth once daily. 90 capsule 3 hydrOXYchloroQUINE (PLAQUENIL) 200 mg tablet Take 1 tablet by mouth two times a day. 180 tablet 3 folic acid 1 mg tablet Take 2 tablets by mouth once daily. 180 tablet 3 metFORMIN ER (GLUCOPHAGE XR) 500 mg 24 hr tablet Take 1 tablet by mouth daily with breakfast. Forgot Rx when traveling, do not cancel [facility] Rx 90 tablet 3 sertraline (ZOLOFT) 100 mg tablet Take 1 tablet by mouth once daily. Forgot Rx when traveling, do not cancel [facility] Rx 90 tablet 3 losartan (COZAAR) 100 mg tablet Take 1 tablet by mouth once daily. 90 tablet 3 topiramate (TOPAMAX) 100 mg tablet Take 1 tablet by mouth every evening. 90 tablet 3 levothyroxine (SYNTHROID) 100 mcg tablet TAKE 1 TABLET DAILY ON AN EMPTY STOMACH FOR THYROID 90 tablet 2 ezetimibe (ZETIA) 10 mg tablet Take 1 tablet by mouth once daily. 90 tablet 3 cholecalciferol (VITAMIN D3) 5,000 unit tab Take 1 tablet by mouth once daily. 90 tablet 3 mometasone (ELOCON) 0.1 % cream Apply 1 application to affected area once daily. 120 g 3 diclofenac, EC, (VOLTAREN) 75 mg EC tablet Take 1 tablet by mouth twice daily. 180 tablet 3 omega-3 acid ethyl esters (LOVAZA) 1 gram capsule TAKE 2 CAPSULES ONCE DAILY 180 capsule 3 MV with Vuu-Jeloryya-Yzgjuq (CENTRUM SILVER) 0.4-300-250 mg-mcg-mcg tab Take 1 tablet by mouth once daily. 1 tablet 0 valACYclovir (VALTREX) 1 gram tablet Take 1 tablet by mouth three times a day for 7 days. 21 tablet 0 No current facility-administered medications for this visit. PAST SURGICAL HISTORY Procedure Laterality Date CHOLECYSTECTOMY 10/03 Cholecystectomy COLONOSCOPY FLX DX W/COLLJ SPEC WHEN PFRMD 12/10/2017 Colonoscopy ESOPHAGOGASTRODUODENOS COPY TRANSORAL DIAGNOSTIC EGD ESOPHAGOGASTRODUODENOS COPY TRANSORAL DIAGNOSTIC 12/10/2017 EGD PAST SURGICAL HISTORY OF trigger finger PAST SURGICAL HISTORY OF heel spur PAST SURGICAL HISTORY OF carpal tunnel PAST SURGICAL HISTORY OF 03/09/12 endovenous laser ablation of L great saphenous vein, small saphenous vein and vein of Giacomini FAMILY HISTORY Problem Relation Age of Onset Diabetes Mother Alzheimer's Disease Mother other (Polycythmeia vera) Father Breast Cancer Sister bilateral mastectomy other (HOCM with myocardial bridge) Sister Alzheimer's Disease Maternal Grandmother Heart Maternal Grandfather Cancer Paternal Grandfather Lung Alzheimer's Disease Maternal Aunt Alzheimer's Disease Maternal Uncle Alzheimer's Disease Maternal Uncle Social History Tobacco Use Smoking status: Former Current packs/day: 0.00 Average packs/day: 0.5 packs/day for 20.0 years (10.0 ttl pk-yrs) Types: Cigarettes Start date: 04/22/1989 Quit date: 04/22/2009 Years since quittin.9 Smokeless tobacco: Never Vaping Use Vaping status: Never Used Substance Use Topics Alcohol use: No Drug use: No Objective BP 142/82 Pulse 88 Temp 36.9 ?C (98.4 ?F) Resp 16 Wt 132 kg (291 lb 0.1 oz) SpO2 95% BMI 44.25 kg/m? Physical Exam Vitals reviewed. Constitutional: Appearance: Normal appearance. HENT: Head: Normocephalic and atraumatic. Skin: General: Skin is warm and dry. Findings: Ra (more content not included)... Normal [facility] CBC panel Auto (Bld)on 03-27 Erythrocyte distribution width (RBC) [Ratio] 12.2 % 11.5 - 15.0 % [facility] Hematocrit (Bld) [Volume fraction] 40.8 % 36.0 - 46.0 % [facility] Hemoglobin (Bld) [Mass/Vol] 13.1 g/dL 11.5 - 15.5 g/dL [facility] Interpretation and review of laboratory results Normal [facility] MCH (RBC) [Entitic mass] 30.3 pg 26.0 - 34.0 pg [facility] MCHC (RBC) [Mass/Vol] 32.1 g/dL 30.5 - 36.0 g/dL [facility] MCV (RBC) [Entitic vol] 94.4 fL 80.0 - 100.0 fL [facility] Nucleated RBC (Bld) [#/Vol] NINF [facility] Platelet mean volume (Bld) [Entitic vol] 9.8 fL 9.0 - 12.7 fL [facility] Platelets (Bld) [#/Vol] 269 10*3/uL [facility] RBC (Bld) [#/Vol] 4.32 10*6/uL 3.90 - 5.2 0 m/uL [facility] WBC (Bld) [#/Vol] 9.53 10*3/uL [facility] MR Lumbar spine WO contrasto n 10-27-2023 IMPRESSION: Degenerative disc and facet disease in lumbar spine as detailed above. Of note is moderate canal stenosis at L4-L5 and small disc herniations at T12-L1 and L1-L2. Chronic benign 50% compression fracture of L3 due to large superior endplate Schmorl's node. Anatomic Lumbar Variant: None. L4-5 is considered the level of the iliac crest and assume there are 5 lumbar-type vertebrae. Corporate Quality Manager: PSCB Transcribe Date/Time: Oct 27 2023 6:17P Dictated by : NELLY URBINA MD This examination was interpreted and the report reviewed and electronically signed by: NELLY URBINA MD on Oct 27 2023 6:20PM [facility] DIVISION OF RADIOLOGY * * *Final Report* * * DATE OF EXAM: Oct 27 2023 3:17PM [facility] 0303 - MRI LUMBAR SPINE WO IVCON / PROCEDURE REASON: lumbar * * * * Physician Interpretation * * * * EXAMINATION: MRI LUMBAR SPINE WO IVCON CLINICAL HISTORY: Neck pain extending into right leg. TECHNIQUE: Routine lumbosacral spine MR protocol without gadolinium. MQ: [id number] COMPARISON: None. RESULT: Counting reference: Lumbosacral junction. For the purposes of this report, L4-5 is considered the level of the iliac crest and assume there are 5 lumbar-type vertebrae. Anatomic variant: None. Localizer images: Unremarkable. Alignment: Alignment is anatomic. Moderate loss of disc height at L4-L5 reflecting degeneration. Bone marrow signal/fracture: No evidence of pathologic marrow infiltration. There is a chronic 50% compression fracture of the elbow 3 vertebra due to large superior endplate Schmorl's node. There is mild dorsal displacement the posterior superior wall of L3. Conus: The conus is within normal limits of signal intensity and morphology. Paraspinal soft tissues: Paraspinal soft tissues are within normal limits. Lower thoracic spine: T12-L1: Mild canal stenosis due to central disc extrusion (series 6 image 6 and series 2 image 15). Neural foramina are patent. L1-L2: Mild canal stenosis due to small central protrusion. Foramina are patent. L2-L3: Mild-moderate canal stenosis due to disc osteophyte complex and facet hypertrophy. Foramina are patent. L3-L4: Mild canal stenosis due to facet hypertrophy. Intervertebral disc is normal. Neural foramina are patent. L4-L5: Moderate canal stenosis due to disc osteophyte complex and hypertrophic changes in the facet joints. Mild bilateral neural foraminal stenosis. L5-S1: Mild canal stenosis due to bulge. Left neural foramen is patent. Mild right neural foraminal stenosis. Sacrum and iliac wings: The visualized sacrum and iliac wings are within normal limits. DIVISION OF RADIOLOGY Provider, [facility] - 10/27/2023 * * *Final Report* * * DATE OF EXAM: Oct 27 2023 3:17PM [facility] 0303 - MRI LUMBAR SPINE WO IVCON / PROCEDURE REASON: lumbar * * * * Physician Interpretation * * * * EXAMINATION: MRI LUMBAR SPINE WO IVCON CLINICAL HISTORY: Neck pain extending into right leg. TECHNIQUE: Routine lumbosacral spine MR protocol without gadolinium. MQ: [id number] COMPARISON: None. RESULT: Counting reference: Lumbosacral junction. For the purposes of this report, L4-5 is considered the level of the iliac crest and assume there are 5 lumbar-type vertebrae. Anatomic variant: None. Localizer images: Unremarkable. Alignment: Alignment is anatomic. Moderate loss of disc height at L4-L5 reflecting degeneration. Bone marrow signal/fracture: No evidence of pathologic marrow infiltration. There is a chronic 50% compression fracture of the elbow 3 vertebra due to large superior endplate Schmorl's node. There is mild dorsal displacement the posterior superior wall of L3. Conus: The conus is within normal limits of signal intensity and morphology. Paraspinal soft tissues: Paraspinal soft tissues are within normal limits. Lower thoracic spine: T12-L1: Mild canal stenosis due to central disc extrusion (series 6 image 6 and series 2 image 15). Neural foramina are patent. L1-L2: Mild canal stenosis due to small central protrusion. Foramina are patent. L2-L3: Mild-moderate canal stenosis due to disc osteophyte complex and facet hypertrophy. Foramina are patent. L3-L4: Mild canal stenosis due to facet hypertrophy. Intervertebral disc is normal. Neural foramina are patent. L4-L5: Moderate canal stenosis due to disc osteophyte complex and hypertrophic changes in the facet joints. Mild bilateral neural foraminal stenosis. L5-S1: Mild canal stenosis due to bulge. Left neural foramen is patent. Mild right neural foraminal stenosis. Sacrum and iliac wings: The visualized sacrum and iliac wings are within normal limits. IMPRESSION IMPRESSION: Degenerative disc and facet disease in lumbar spine as detailed above. Of note is moderate canal stenosis at L4-L5 and small disc herniations at T12-L1 and L1-L2. Chronic benign 50% compression fracture of L3 due to large superior endplate Schmorl's node. Anatomic Lumbar Variant: None. L4-5 is considered the level of the iliac crest and assume there are 5 lumbar-type vertebrae. Corporate Quality Manager: PSCB Transcribe Date/Time: Oct 27 2023 6:17P Dictated by : NELLY URBINA MD This examination was interpreted and the report reviewed and electronically signed by: NELLY URBINA MD on Oct 27 2023 6:20PM EST [facility] Radiology Study observation (narrative) [facility] MR Lumbar spine WO contrastO rdered By: [facility] Provider on 10-27-2023 [facility] Large Joint Arthro/Inj: L kn ee jointon 09-23-2023 Kusum Block PA -C 09/23/2023 1:59 PM Large Joint Arthro/Inj: L knee joint Informed Consent Consent Obtained: Verbal [place] Protocol A moment to CARE was completed. SIGN IN Sign in communication not applicable due to emergent procedure. Personnel directly involved with the procedure wore the appropriate PPE. Special Equipment: N/A Patient/Surrogate Stated/Verified: Patient name, Date of , Relevant allergies and Intended procedure TIME OUT Intended patient and procedure match the source document(s). Relevant labs, photos, and/or imaging studies have been reviewed. Correct side/site marked and visible. Medications required for procedure verified. No fire risk assessment and interventions applicable. No implant(s) inserted. 09/23/2023 1:59 PM The procedure site was prepped in the usual sterile fashion. Site: L knee joint Medications: 6 mg betamethasone acetate-betamethasone sodium phosphate 6 mg/mL Anesthetics: 4 mL lidocaine (PF) 10 mg/mL (1 %) Outcome: Tolerated well, no immediate complications Post-injection instructions were reviewed with the patient and the patient voiced understanding of these instructions. SIGN OUT All instruments, equipment, possible retained foreign bodies accounted for. [facility] HbA1c (Bld)on 02-09-2023 Average glucose Estimated from glycated hemoglobin (Bld) [Mass/Vol] 108 mg/dL [facility] HbA1c (Bld) [Mass fraction] 5.4 % 4.3 - 5.6 % [facility] TSH BLDon 02-09-2023 TSH Qn 1.250 m[IU]/L 0.270 - 4.200 mIU/L [facility] XR FOOT GENERAL 3V AP/LAT/OB L BILATERALon 11-23-2022 [facility] STREP A MOLECULAR (POC)on Procedural Control Valid [facility] Strep A (POCT) Negative Negative [facility] XR HIP GENERAL 3V PELV/AP/LA T RIGHTon 04-02-2022 [facility] XR Pelvis and Hip - right AP and Lateral frogon 04-02-2022 IMPRESSION: Right hip osteoarthritis. Corporate Quality Manager: LINDA Transcribe Date/Time: Apr 02 2022 4:02P Dictated by : Jessica CRISTINA MD This examination was interpreted and the report reviewed and electronically signed by: Jessica CRISTINA MD on Apr 02 2022 4:04PM [facility] DIVISION OF RADIOLOGY * * *Final Report* * * DATE OF EXAM: Apr 02 2022 3:44PM [facility]OX [id number] - XR HIP 3V PELV+ AP/LAT RT / PROCEDURE REASON: Groin pain, right * * * * Physician Interpretation * * * * EXAMINATION: XR HIP 3V PELV+ AP/LAT RT HISTORY: Groin pain, right Anterior right hip pain x 1 month without injury VIEWS: AP and lateral right hip with AP pelvis. COMPARISON: No relevant comparison. FINDINGS: No dislocation or acute fracture. Right hip has mild apical joint space narrowing with femoral and acetabular osteophytes. Distal lumbar spondylosis. DIVISION OF RADIOLOGY Provider, Calli Moore - 04/02/2022 * * *Final Report* * * DATE OF EXAM: Apr 02 2022 3:44PM [facility]OX [id number] - XR HIP 3V PELV+ AP/LAT RT / PROCEDURE REASON: Groin pain, right * * * * Physician Interpretation * * * * EXAMINATION: XR HIP 3V PELV+ AP/LAT RT HISTORY: Groin pain, right Anterior right hip pain x 1 month without injury VIEWS: AP and lateral right hip with AP pelvis. COMPARISON: No relevant comparison. FINDINGS: No dislocation or acute fracture. Right hip has mild apical joint space narrowing with femoral and acetabular osteophytes. Distal lumbar spondylosis. IMPRESSION IMPRESSION: Right hip osteoarthritis. Corporate Quality Manager: LINDA Transcribe Date/Time: Apr 02 2022 4:02P Dictated by : Jessica CRISTINA MD This examination was interpreted and the report reviewed and electronically signed by: Jessica CRISTINA MD on Apr 02 2022 4:04PM EST [facility] Radiology Study observation (narrative) [facility] XR Pelvis and Hip - right AP and Lateral frogOrdered By: [facility] Provider on 04-02-2022 [facility] No Panel Informationon 02-24 [facility] XR Hand - bilateral PA and L ateral and Obliqueon 12-24-2021 IMPRESSION: 1. Degenerative arthrosis of both hands. Corporate Quality Manager: LINDA Transcribe Date/Time: Dec 24 2021 10:22A Dictated by : MARK FIELD MD This examination was interpreted and the report reviewed and electronically signed by: MARK FIEDL MD on Dec 24 2021 10:24AM EST [facility]DIVISION OF RADIOLOGY * * *Final Report* * * DATE OF EXAM: Dec 23 2021 3:38PM STX [id number] - XR HAND 3V PA/LAT/OBL RONNA / PROCEDURE REASON: multiple diagnoses * * * * Physician Interpretation * * * * Bilateral hand x-rays: HISTORY: Pain TECHNIQUE: 3 views of both hands were performed. RESULT: Osseous structures are intact, without evidence of an acute fracture. On the RIGHT, joint space narrowing and osteophytosis are present at the first carpometacarpal, first interphalangeal and at the second and third distal interphalangeal joints. No osseous erosions are demonstrated. On the LEFT, joint space narrowing and osteophytosis are present at the first carpometacarpal, first metacarpophalangeal, first interphalangeal and the third distal interphalangeal joints. No osseous erosions are demonstrated. [facility]NOT[facility]_DIVISION OF RADIOLOGY Provider, Calli [facility] - 12/24/2021 * * *Final Report* * * DATE OF EXAM: Dec 23 2021 3:38PM STX [id number] - XR HAND 3V PA/LAT/OBL RONNA / PROCEDURE REASON: multiple diagnoses * * * * Physician Interpretation * * * * Bilateral hand x-rays: HISTORY: Pain TECHNIQUE: 3 views of both hands were performed. RESULT: Osseous structures are intact, without evidence of an acute fracture. On the RIGHT, joint space narrowing and osteophytosis are present at the first carpometacarpal, first interphalangeal and at the second and third distal interphalangeal joints. No osseous erosions are demonstrated. On the LEFT, joint space narrowing and osteophytosis are present at the first carpometacarpal, first metacarpophalangeal, first interphalangeal and the third distal interphalangeal joints. No osseous erosions are demonstrated. IMPRESSION IMPRESSION: 1. Degenerative arthrosis of both hands. Corporate Quality Manager: LINDA Transcribe Date/Time: Dec 24 2021 10:22A Dictated by : MARK FIELD MD This examination was interpreted and the report reviewed and electronically signed by: MARK FIELD MD on Dec 24 2021 10:24AM EST [facility] XR Hand - bilateral PA and L ateral and ObliqueOrdered By: Ccf Provider on 12-24-2021 [facility] XR Lumbar spine 3 Viewson IMPRESSION: 1. Multilevel lumbar spondylosis. 2. Lower lumbar spine degenerative facet arthrosis. Corporate Quality Manager: LINDA Transcribe Date/Time: Dec 24 2021 10:48A Dictated by : MARK FIELD MD This examination was interpreted and the report reviewed and electronically signed by: MARK FIELD MD on Dec 24 2021 10:49AM EST [facility]DIVISION OF RADIOLOGY * * *Final Report* * * DATE OF EXAM: Dec 23 2021 3:38PM STX [id number] - XR LUMBAR 3V AP/LAT/L5-S1 / PROCEDURE REASON: Lupus (HCC) * * * * Physician Interpretation * * * * Lumbar spine x-rays: HISTORY: Pain TECHNIQUE: AP, lateral and L5-S1 spot films were obtained. COMPARISON: None RESULT: Counting reference: Lumbosacral junction. For the purposes of this report, L4-L5 is considered the level of the iliac crest and assume there are 5 lumbar-type vertebrae. Anatomic variant: None. There is mild dextrocurvature of the lumbar spine. There are also 3 mm of anterior listhesis of L3 upon L4 secondary to facet degenerative changes. Moderate disc space narrowing and osteophytosis are present at L1-L2 and L4-L5. Mild disc space narrowing and osteophyte formation are present at L3-L4. Facet hypertrophic changes are demonstrated at the L4-L5 and L5-S1 levels. [facility]NOT[facility]US E_DIVISION OF RADIOLOGY Provider, [facility] Cristo [facility] - 12/24/2021 * * *Final Report* * * DATE OF EXAM: Dec 23 2021 3:38PM STX [id number] - XR LUMBAR 3V AP/LAT/L5-S1 / PROCEDURE REASON: Lupus (HCC) * * * * Physician Interpretation * * * * Lumbar spine x-rays: HISTORY: Pain TECHNIQUE: AP, lateral and L5-S1 spot films were obtained. COMPARISON: None RESULT: Counting reference: Lumbosacral junction. For the purposes of this report, L4-L5 is considered the level of the iliac crest and assume there are 5 lumbar-type vertebrae. Anatomic variant: None. There is mild dextrocurvature of the lumbar spine. There are also 3 mm of anterior listhesis of L3 upon L4 secondary to facet degenerative changes. Moderate disc space narrowing and osteophytosis are present at L1-L2 and L4-L5. Mild disc space narrowing and osteophyte formation are present at L3-L4. Facet hypertrophic changes are demonstrated at the L4-L5 and L5-S1 levels. IMPRESSION IMPRESSION: 1. Multilevel lumbar spondylosis. 2. Lower lumbar spine degenerative facet arthrosis. Corporate Quality Manager: LINDA Transcribe Date/Time: Dec 24 2021 10:48A Dictated by : MARK FIELD MD This examination was interpreted and the report reviewed and electronically signed by: MARK FIELD MD on Dec 24 2021 10:49AM EST [facility] No Panel Informationon 12-23 Radiology Study observation (narrative) [facility] XR Chest PA and Lateralon IMPRESSION: Small amount of patchy opacification the infrahilar right lung; subsegmental atelectasis, artifacts related to overlying bronchovascular markings versus subtle early/persistent infiltrates (if the patient has signs and symptoms of pneumonia). Follow-up as clinically indicated. Corporate Quality Manager: LINDA Transcribe Date/Time: Feb 19 2021 4:32P Dictated by : CONNIE CHAVEZ MD This examination was interpreted and the report reviewed and electronically signed by: CONNIE CHAVEZ MD on Feb 19 2021 4:41PM EST DIVISION OF RADIOLOGY * * *Final Report* * * DATE OF EXAM: Feb 19 2021 4:32PM CCX [id number] - XR CHEST 2V FRONTAL/LAT / PROCEDURE REASON: multiple diagnoses * * * * Physician Interpretation * * * * EXAMINATION: CHEST RADIOGRAPH (2 VIEW FRONTAL & LATERAL) CLINICAL HISTORY: Post-acute sequelae of COVID-19 (PASC). Activity intolerance Fatigue, unspecified type WHITNEY (dyspnea on exertion) MQ: [id number]_6 EXAM DATE/TIME: 02/19/2021 4:32 PM COMPARISON: No relevant prior studies available. RESULT: Lines, tubes, and devices: None. Lungs and pleura: Small amount of patchy opacification the infrahilar right lung. No lung mass. No pleural effusion. No pneumothorax. Cardiomediastinal silhouette: Normal cardiomediastinal silhouette. Bones and soft tissues: No acute osseous pathology. DIVISION OF RADIOLOGY Provider, [facility] Cristo Moore - 02/19/2021 * * *Final Report* * * DATE OF EXAM: Feb 19 2021 4:32PM CCX 5291 - XR CHEST 2V FRONTAL/LAT / PROCEDURE REASON: multiple diagnoses * * * * Physician Interpretation * * * * EXAMINATION: CHEST RADIOGRAPH (2 VIEW FRONTAL & LATERAL) CLINICAL HISTORY: Post-acute sequelae of COVID-19 (PASC). Activity intolerance Fatigue, unspecified type WHITNEY (dyspnea on exertion) MQ: [id number]_6 EXAM DATE/TIME: 02/19/2021 4:32 PM COMPARISON: No relevant prior studies available. RESULT: Lines, tubes, and devices: None. Lungs and pleura: Small amount of patchy opacification the infrahilar right lung. No lung mass. No pleural effusion. No pneumothorax. Cardiomediastinal silhouette: Normal cardiomediastinal silhouette. Bones and soft tissues: No acute osseous pathology. IMPRESSION IMPRESSION: Small amount of patchy opacification the infrahilar right lung; subsegmental atelectasis, artifacts related to overlying bronchovascular markings versus subtle early/persistent infiltrates (if the patient has signs and symptoms of pneumonia). Follow-up as clinically indicated. Corporate Quality Manager: LINDA Transcribe Date/Time: Feb 19 2021 4:32P Dictated by : CONNIE CHAVEZ MD This examination was interpreted and the report reviewed and electronically signed by: CONNIE CHAVEZ MD on Feb 19 2021 4:41PM EST [facility] Radiology Study observation (narrative) [facility] XR Chest PA and LateralOrder ed By: Ccf Provider on 02-19-2021 [facility] .Auto Diffon 12-02-2020 Basophil, Absolute 0.10 10 3/mcL Normal 0.00-0.19 [facility] ([place]) Comment on above: Performed By: #### C FRANCISCO SANTANA ANEU TROPHS #### [address] [address] #### BMP, GFR #### [address] [address] Basophils/100 WBC (Bld) 0.5 % Normal 0.0-2.5 [facility] ([place]) Comment on above: Performed By: #### C FRANCISCO SANTANA ANEU, TROPHS #### [address] [address] #### BMP, GFR #### [address] [address] Eosinophil, Absolute 0.30 10 3/mcL Normal 0.00-0.40 A [facility] ([place]) Comment on above: Performed By: #### C BC, ADIFF, ANEU, TROPHS #### [place] [address] #### BMP, GFR #### [address] [address] Eosinophils/100 WBC (Bld) 2.7 % Normal 0.0-7.0 [facility] ([place]) Comment on above: Performed By: #### C BC, ADIFF, ANEU, TROPHS #### [place] [address] #### BMP, GFR #### [address] [address] Lymphocyte, Absolute 2.40 10 3/mcL Normal 0.77-3.85 A [facility] ([place]) Comment on above: Performed By: #### C BC, ADIFF, ANEU, TROPHS #### [place] [address] #### BMP, GFR #### [address] [address] Lymphocytes/100 WBC (Bld) 22.1 % Normal 10.0-50.0 [facility] ([place]) Comment on above: Performed By: #### C BC, ADIFF, ANEU, TROPHS #### [place] [address] #### BMP, GFR #### [address] [address] Monocyte, Absolute 1.00 10 3/mcL Normal 0.15-1.00 [facility] ([place]) Comment on above: Performed By: #### C BC, ADIFF, ANEU, TROPHS #### [place] [address] #### BMP, GFR #### [address] [address] Monocytes/100 WBC (Bld) 9.2 % Normal 1.7-13.0 [facility] ([place]) Comment on above: Performed By: #### C BC, ADIFF, ANEU, TROPHS #### [address] [address] #### BMP, GFR #### [address] [address] Neutrophils/100 WBC (Bld) 65.5 % Normal 37.0-80.0 [facility] ([place]) Comment on above: Performed By: #### C BC, ADIFF, ANEU, TROPHS #### [address] [address] #### BMP, GFR #### [address] [address] .GFRon 12-02-2020 GFR Non- 98 ml/min/1.73sqm Normal [facility] ([place]) Comment on above: Result Comment: GFR Population mean for , Non- Americans Ages 20-29 = 116 mL/min/1.73 sq.m. Ages 30-39 = 107 mL/min/1.73 sq.m. Ages 40-49 = 99 mL/min/1.73 sq.m. Ages 50-59 = 93 mL/min/1.73 sq.m. Ages 60-69 = 85 mL/min/1.73 sq.m. Ages 70+ = 75 mL/min/1.73 sq.m. Chronic Kidney Disease: Less than 60 mL/min/1.73 square meters End Stage Renal Disease: Less than 15 mL/min/1.73 square meters Performed By: #### C BC, ADIFF, ANEU, TROPHS #### [address] [address] #### BMP, GFR #### [address] [address] GFR 119 ml/min/1.73sqm Normal [facility] ([place]) Comment on above: Result Comment: GFR Population mean for , Non- Americans Ages 20-29 = 116 mL/min/1.73 sq.m. Ages 30-39 = 107 mL/min/1.73 sq.m. Ages 40-49 = 99 mL/min/1.73 sq.m. Ages 50-59 = 93 mL/min/1.73 sq.m. Ages 60-69 = 85 mL/min/1.73 sq.m. Ages 70+ = 75 mL/min/1.73 sq.m. Chronic Kidney Disease: Less than 60 mL/min/1.73 square meters End Stage Renal Disease: Less than 15 mL/min/1.73 square meters Performed By: #### C BC, ADIFF, ANEU, TROPHS #### [place] [address] #### BMP, GFR #### [place] [address] .NEUABSon 12-02-2020 Neutrophil, Absolute 7.00 10 3/mcL High 2.85-6.16 A [facility] ([place]) Comment on above: Performed By: #### C BC, ADIFF, ANEU, TROPHS #### [place] [address] #### BMP, GFR #### [place] [address] BMPon 12-02-2020 BUN/Creatinine Ratio 16 ratio Normal 7-27 [facility] ([place]) Comment on above: Performed By: #### C BC, ADIFF, ANEU, TROPHS #### [place] [address] #### BMP, GFR #### [place] [address] Calcium [Mass/Vol] 9.2 mg/dL Normal 8.4-10.2 [facility] ([place]) Comment on above: Performed By: #### C BC, ADIFF, ANEU, TROPHS #### [place] [address] #### BMP, GFR #### [place] [address] Chloride [Moles/Vol] 102 mmol/L Normal 98-107 [facility] ([place]) Comment on above: Performed By: #### C BC, ADIFF, ANEU, TROPHS #### [address] [address] #### BMP, GFR #### [address] [address] CO2 [Moles/Vol] 30 mmol/L High 22-29 [facility] ([place]) Comment on above: Performed By: #### C BC, ADIFF, ANEU, TROPHS #### [address] [address] #### BMP, GFR #### [address] [address] Creatinine [Mass/Vol] 0.63 mg/dL Normal 0.55-1.02 [facility] ([place]) Comment on above: Performed By: #### C BC, ADIFF, ANEU, TROPHS #### [address] [address] #### BMP, GFR #### [address] [address] Electrolyte Balance 10.0 mEq/L Normal [facility] ([place]) Comment on above: Performed By: #### C BC, ADIFF, ANEU, TROPHS #### [address] [address] #### BMP, GFR #### [address] [address] Glucose [Mass/Vol] 121 mg/dL High 70-105 [facility] ([place]) Comment on above: Performed By: #### C BC, ADIFF, ANEU, TROPHS #### [address] [address] #### BMP, GFR #### [address] [address] Potassium [Moles/Vol] 3.4 mmol/L Low 3.5-5.1 [facility] ([place] Comment on above: Performed By: #### C BC, ADIFF, ANEU, TROPHS #### [address] [address] #### BMP, GFR #### [address] [address] Sodium [Moles/Vol] 142 mmol/L Normal 136-145 [facility] ([place]) Comment on above: Performed By: #### C BC, ADIFF, ANEU, TROPHS #### [place] [address] #### BMP, GFR #### [place] [address] Urea nitrogen [Mass/Vol] 10 mg/dL Normal 7-18 [facility] ([place]) Comment on above: Performed By: #### C BC, ADIFF ANEU, TROPHS #### [place] [address] #### BMP, GFR #### [place] [address] CBCon 12-02-2020 Erythrocyte distribution width (RBC) [Ratio] 12.9 % Normal 11.5-14.5 [facility] ([place]) Comment on above: Performed By: #### C BC ADIFF ANEU, TROPHS #### [place] [address] #### BMP, GFR #### [place] [address] Hematocrit (Bld) [Volume fraction] 42.0 % Normal 37.0-47.0 [facility] ([place]) Comment on above: Performed By: #### C BC ADIFF ANEU, TROPHS #### [place] [address] #### BMP, GFR #### [place] [address] Hgb 13.9 G/dL Normal 12.0-16.0 [facility] ([place]) Comment on above: Performed By: #### C BC, ADIFF, ANEU, TROPHS #### [place] [address] #### BMP, GFR #### [place] [address] MCH (RBC) [Entitic mass] 30.6 pg Normal 27.0-31.2 [facility] ([place]) Comment on above: Performed By: #### C BC, ADIFF, ANEU, TROPHS #### [place] [address] #### BMP, GFR #### [place] [address] MCHC 33.0 G/dL Normal 33.0-37.0 [facility] ([place]) Comment on above: Performed By: #### C BC, ADIFF, ANEU, TROPHS #### [place] [address] #### BMP, GFR #### [place] [address] MCV (RBC) [Entitic vol] 92.8 fL Normal 80.0-94.0 [facility] ([place]) Comment on above: Performed By: #### C BC, ADIFF, ANEU, TROPHS #### [place] [address] #### BMP, GFR #### [place] [address] Platelet 274 10 3/mcL Normal 130-400 [facility] ([place]) Comment on above: Performed By: #### C BC, ADIFF, ANEU, TROPHS #### [place] [address] #### BMP, GFR #### [place] [address] Platelet mean volume (Bld) [Entitic vol] 8.5 fL Normal 7.4-10.4 [facility] ([place]) Comment on above: Performed By: #### C BC, ADIFF, ANEU, TROPHS #### [place] [address] #### BMP, GFR #### [place] [address] RBC 4.53 10 6/mcL Normal 4.20-5.40 [facility] ([place]) Comment on above: Performed By: #### C BC, ADIFF, ANEU, TROPHS #### [place] [address] [place], [place] [address] #### BMP, GFR #### [address] [address] WBC 10.70 10 3/mcL Normal 4.60-10.80 [facility] ([place]) Comment on above: Performed By: #### C BC, ADIFF, ANEU, TROPHS #### [place] [address] [place], [place] [address] #### BMP, GFR #### [place] [id number] [place] [address] ABDOMEN/PELVIS W/CONTRAST on 12-02-2020 CT ABDOMEN/PELVIS W/CONTRAST ORIGINAL EXAMINATION: CT OF THE ABDOMEN AND PELVIS WITH CONTRAST 12/02/2020 12:07 pm TECHNIQUE: CT of the abdomen and pelvis was performed with the administration of intravenous contrast. Multiplanar reformatted images are provided for review. Dose modulation, iterative reconstruction, and/or weight based adjustment of the mA/kV was utilized to reduce the radiation dose to as low as reasonably achievable. COMPARISON: None. HISTORY: ORDERING SYSTEM PROVIDED HISTORY: elevated cea levels Reason for Exam: elevated cea levels FINDINGS: Euyj-yj-onuhfqev degenerative changes are noted in the spine greatest inferiorly. Mild hip joint degenerative changes are also seen. Minimal linear scarring is evident at the left lung base. There is diffuse fatty infiltration of the liver. No focal liver lesion is visible. The spleen, adrenal glands and pancreas are normal. Tiny scattered punctate renal calcifications are suspected although there is some artifact present. 2 mm right lower pole stone suspected, 2 mm left upper pole stone suspected. A tiny left renal cyst is also evident. No free air or fluid is visible. There is a mildly prominent rajiv hepatis lymph node measuring 12 mm, presumably reactive or hyperplastic. No other adenopathy is identified. The pelvic organs are unremarkable. No GI tract abnormality seen. The appendix is normal. There is a very small fat containing umbilical hernia seen. No additional contributory abnormality. IMPRESSION: 1. Fatty liver. 2. Punctate nephrolithiasis without obstruction. 3. No acute abnormality identified on this exam. Interpreted by: Travis Victor MD Preliminary Report By: Travis Victor MD Electronically signed By Travis Victor MD Dictated Date: 12/02/2020 1:15:05 PM Prelim Date: 12/02/2020 1:23:10 PM Sign Date: 12/02/2020 1:23:10 PM Ordering Provider: LOVE Dia [facility] ([place]) Isa 12-02-2020 Troponin I High Sensitivity 5.9 ng/L Normal 0.0-51.4 [facility] ([place]) Comment on above: Performed By: #### C BC, ADIFF, ANEU, TROPHS #### [facility] [address] [place], [place] [address] #### BMP, GFR #### [facility] [address] [place] [address] Vital Signs Date Time Vital Sign Value Performing Clinician Facility 12-25-2024 10:55-0400 Body mass index (BMI) [Ratio] 41.36 kg/m2 David Chicas MD Work Phone: [facility] 12-25-2024 10:55-0400 Body weight 123.38 kg David Chicas MD Work Phone: [facility] 12-25-2024 10:55-0400 Diastolic blood pressure 78 mm[Hg] David Chicas MD Work Phone: [facility] 12-25-2024 10:55-0400 Heart rate 94 /min David Chicas MD Work Phone: [facility] 12-25-2024 10:55-0400 Respiratory rate 16 /min David Chicas MD Work Phone: [facility] 12-25-2024 10:55-0400 SaO2% (BldA) [Mass fraction] 97 % David Chicas MD Work Phone: [facility] 12-25-2024 10:55-0400 Systolic blood pressure 138 mm[Hg] David Chicas MD Work Phone: [facility] 11-24-2024 13:00-0400 Body mass index (BMI) [Ratio] 41.97 kg/m2 Mattie Older [address] PAINTER.CUSTOM APPLICATOR Work Phone: [facility] 11-24-2024 13:00-0400 Body weight 125.[address] [employer]INTER.CUSTOM APPLICATOR Work Phone: [facility] 11-24-2024 13:00-0400 Diastolic blood pressure 78 mm[Hg] Mattie Older [address] PAINTER.CUSTOM APPLICATOR Work Phone: [facility] 11-24-2024 13:00-0400 Heart rate 80 /min Mattie Older [address] PAINTER.CUSTOM APPLICATOR Work Phone: [facility] 11-24-2024 13:00-0400 Respiratory rate 16 /min Mattie Older [address] PAINTER.CUSTOM APPLICATOR Work Phone: [facility] 11-24-2024 13:00-0400 SaO2% (BldA) [Mass fraction] 97 % Mattie Older [address] PAINTER.CUSTOM APPLICATOR Work Phone: [facility] 11-24-2024 13:00-0400 Systolic blood pressure 130 mm[Hg] Mattie Older [address] PAINTER.CUSTOM APPLICATOR Work Phone: [facility] 11-20-2024 13:17-0400 Body mass index (BMI) [Ratio] 41.97 kg/m2 Felix Ornelas MD Work Phone: [facility] 11-20-2024 13:17-0400 Body weight 125.19 kg Felix Ornelas MD Work Phone: [facility] 11-20-2024 13:17-0400 Diastolic blood pressure 82 mm[Hg] Felix Ornelas MD Work Phone: [facility] 11-20-2024 13:17-0400 Heart rate 93 /min Felix Ornelas MD Work Phone: [facility] 11-20-2024 13:17-0400 SaO2% (BldA) [Mass fraction] 97 % Felix Ornelas MD Work Phone: [facility] 11-20-2024 13:17-0400 Systolic blood pressure 132 mm[Hg] Felix Ornelas MD Work Phone: [facility] 11-14-2024 07:49-0400 Body height 172.[address] David Chicas MD Work Phone: [facility] 11-14-2024 07:49-0400 Body mass index (BMI) [Ratio] 42.3 kg/m2 Dr. David Chicas MD Work Phone: [facility] 11-14-2024 07:49-0400 Body temperature 97.3 [degF] Dr. David Chicas MD Work Phone: 3(308)396-540770 [place] [address] 11-14-2024 07:49-0400 Body weight 126.[address] David Chicas MD Work Phone: 9(997)401-327713 [place] [address] 11-14-2024 07:49-0400 Diastolic blood pressure 84 mm[Hg] Dr. David Chicas MD Work Phone: 6(486)366-374270 [place] [address] 11-14-2024 07:49-0400 Heart rate 92 /min Dr. David Chicas MD Work Phone: 3(837)084-198370 [place] [address] 11-14-2024 07:49-0400 Respiratory rate 18 /min Dr. David Chicas MD Work Phone: 9(956)358-116713 [place] [address] 11-14-2024 07:49-0400 SaO2% (BldA) [Mass fraction] 94 % Dr. David Chicas MD Work Phone: [facility] 11-14-2024 07:49-0400 Systolic blood pressure 141 mm[Hg] Dr. David Chicas MD Work Phone: [facility] 10-27-2024 14:00-0400 Body temperature 97.7 [degF] Mattie Older [address] PAINTER.CUSTOM APPLICATOR Work Phone: [facility] 10-27-2024 14:00-0400 Diastolic blood pressure 72 mm[Hg] Mattie Older [address] PAINTER.CUSTOM APPLICATOR Work Phone: [facility] 10-27-2024 14:00-0400 Heart rate 77 /min Mattie Older [address] PAINTER.CUSTOM APPLICATOR Work Phone: [facility] 10-27-2024 14:00-0400 Respiratory rate 16 /min Mattie Older [address] PAINTER.CUSTOM APPLICATOR Work Phone: [facility] 10-27-2024 14:00-0400 SaO2% (BldA) [Mass fraction] 96 % Mattie Older [address] PAINTER.CUSTOM APPLICATOR Work Phone: [facility] 10-27-2024 14:00-0400 Systolic blood pressure 130 mm[Hg] Mattie Older [address] PAINTER.CUSTOM APPLICATOR Work Phone: [facility] 10-25-2024 12:17-0400 Body mass index (BMI) [Ratio] 43.03 kg/m2 Mattie Older [address] PAINTER.CUSTOM APPLICATOR Work Phone: [facility] 10-25-2024 12:17-0400 Body weight 128.[address] PAINTER.CUSTOM APPLICATOR Work Phone: [facility] 10-25-2024 12:17-0400 Diastolic blood pressure 78 mm[Hg] Mattie Older [address] PAINTER.CUSTOM APPLICATOR Work Phone: [facility] 10-25-2024 12:17-0400 Heart rate 80 /min Mattie Older [address] PAINTER.CUSTOM APPLICATOR Work Phone: [facility] 10-25-2024 12:17-0400 Respiratory rate 16 /min Mattie Older [address] PAINTER.CUSTOM APPLICATOR Work Phone: [facility] 10-25-2024 12:17-0400 SaO2% (BldA) [Mass fraction] 97 % Mattie Older [address] PAINTER.CUSTOM APPLICATOR Work Phone: [facility] 10-25-2024 12:17-0400 Systolic blood pressure 142 mm[Hg] Mattie Older [address] PAINTER.CUSTOM APPLICATOR Work Phone: [facility] 10-16-2024 12:11-0400 Body mass index (BMI) [Ratio] 43.64 kg/m2 David Chicas MD Work Phone: [facility] 10-16-2024 12:11-0400 Body weight 130.2 kg David Chicas MD Work Phone: [facility] 10-16-2024 12:11-0400 Diastolic blood pressure 82 mm[Hg] David Chicas MD Work Phone: [facility] 10-16-2024 12:11-0400 Heart rate 82 /min David Chicas MD Work Phone: [facility] 10-16-2024 12:11-0400 Respiratory rate 16 /min David Chicas MD Work Phone: 2(942)421-176388 [place] [address] 10-16-2024 12:11-0400 SaO2% (BldA) [Mass fraction] 96 % David Chicas MD Work Phone: 6(843)449-101088 [place] [address] 10-16-2024 12:11-0400 Systolic blood pressure 147 mm[Hg] David Chicas MD Work Phone: 6(232)791-526988 [place] [address] 10-13-2024 20:52-0400 Body height 172.[address] David Chicas MD Work Phone: 7(250)321-707013 [place] [address] 10-13-2024 20:52-0400 Body mass index (BMI) [Ratio] 42.7 kg/m2 Dr. David Chicas MD Work Phone: 0(707)305-210113 [place] [address] 10-13-2024 20:52-0400 Body temperature 96.8 [degF] Dr. David Chicas MD Work Phone: 9(694)413-782013 [place] [address] 10-13-2024 20:52-0400 Body weight 127.[address] David Chicas MD Work Phone: 4(018)028-441413 [place] [address] 10-13-2024 20:52-0400 Diastolic blood pressure 84 mm[Hg] Dr. David Chicas MD Work Phone: 8(366)966-374713 [place] [address] 10-13-2024 20:52-0400 Heart rate 105 /min Dr. David Chicas MD Work Phone: 9(923)006-676013 [place] [address] 10-13-2024 20:52-0400 Respiratory rate 16 /min Dr. David Chicas MD Work Phone: 0(546)031-608613 [place] [address] 10-13-2024 20:52-0400 SaO2% (BldA) [Mass fraction] 95 % Dr. David Chicas MD Work Phone: 8(878)649-758279 [place] [address]-16-2025 20:52-0400 Systolic blood pressure 183 mm[Hg] Dr. David Chicas MD Work Phone: [facility] 07-27-2024 11:23-0500 Body mass index (BMI) [Ratio] 43.64 kg/m2 Mattie Older [address] PAINTER.CUSTOM APPLICATOR Work Phone: [facility] 07-27-2024 11:23-0500 Body weight 130.18 [address] PAINTER.CUSTOM APPLICATOR Work Phone: [facility] 07-27-2024 11:23-0500 Diastolic blood pressure 80 mm[Hg] Mattie Older [address] PAINTER.CUSTOM APPLICATOR Work Phone: [facility] 07-27-2024 11:23-0500 Heart rate 79 /min Mattie Older [address] PAINTER.CUSTOM APPLICATOR Work Phone: [facility] 07-27-2024 11:23-0500 Respiratory rate 16 /min Mattie Older [address] PAINTER.CUSTOM APPLICATOR Work Phone: [facility] 07-27-2024 11:23-0500 SaO2% (BldA) [Mass fraction] 97 % Mattie Older [address] PAINTER.CUSTOM APPLICATOR Work Phone: [facility] 07-27-2024 11:23-0500 Systolic blood pressure 136 mm[Hg] Mattie Older [address] PAINTER.CUSTOM APPLICATOR Work Phone: [facility] 06-26-2024 11:03-0500 Body mass index (BMI) [Ratio] 44.09 kg/m2 Mattie Older [address] PAINTER.CUSTOM APPLICATOR Work Phone: [facility] 06-26-2024 11:03-0500 Body weight 131.54 [address] PAINTER.CUSTOM APPLICATOR Work Phone: [facility] 06-26-2024 11:03-0500 Diastolic blood pressure 82 mm[Hg] Mattie Older [address] PAINTER.CUSTOM APPLICATOR Work Phone: [facility] 06-26-2024 11:03-0500 Heart rate 78 /min Mattie Older [address] PAINTER.CUSTOM APPLICATOR Work Phone: [facility] 06-26-2024 11:03-0500 Respiratory rate 16 /min Mattie Older [address] PAINTER.CUSTOM APPLICATOR Work Phone: [facility] 06-26-2024 11:03-0500 SaO2% (BldA) [Mass fraction] 97 % Mattie Older [address] PAINTER.CUSTOM APPLICATOR Work Phone: [facility] 06-26-2024 11:03-0500 Systolic blood pressure 134 mm[Hg] Mattie Older [address] PAINTER.CUSTOM APPLICATOR Work Phone: 2(005)784-061088 [place] [address] 06-21-2024 08:01-0500 Body mass index (BMI) [Ratio] 43.3 kg/m2 Dr. David Chicas MD Work Phone: 1(849)435-416770 [place] [address] 06-21-2024 08:01-0500 Body temperature 97.4 [degF] Dr. David Chicas MD Work Phone: 3(109)959-627813 [place] [address] 06-21-2024 08:01-0500 Body weight 129.[address] David Chicas MD Work Phone: 1(838)469-440213 [place] [address] 06-21-2024 08:01-0500 Diastolic blood pressure 61 mm[Hg] Dr. David Chicas MD Work Phone: 7(101)512-203813 [place] [address] 06-21-2024 08:01-0500 Heart rate 75 /min Dr. David Chicas MD Work Phone: 6(907)018-444313 [place] [address] 06-21-2024 08:01-0500 Respiratory rate 20 /min Dr. David Chicas MD Work Phone: 7(016)374-121513 [place] [address] 06-21-2024 08:01-0500 SaO2% (BldA) [Mass fraction] 94 % Dr. David Chicas MD Work Phone: 8(082)646-648113 [place] [address] 06-21-2024 08:01-0500 Systolic blood pressure 106 mm[Hg] Dr. David Chicas MD Work Phone: 2(467)050-124713 [place] [address] 04-26-2024 10:48-0500 Diastolic Blood Pressure Non-Invasive 68 mm[Hg] SARA VASSAS DO [facility] 04-26-2024 10:48-0500 Heart rate 78 /min SARA VASSAS DO [facility] 04-26-2024 10:48-0500 Respiratory rate 18 /min SARA VASSAS DO [facility] 04-26-2024 10:48-0500 Systolic Blood Pressure Non-Invasive 166 mm[Hg] SARA VASSAS DO [facility] 04-04-2024 14:43-0500 Body height 172.7 cm Louann Bogner PA-C Work Phone: [facility] 04-04-2024 14:43-0500 Body mass index (BMI) [Ratio] 43.94 kg/m2 Louann Bogner PA-C Work Phone: [facility] 04-04-2024 14:43-0500 Body weight 131.09 kg Louann Bogner PA-C Work Phone: [facility] 04-04-2024 14:43-0500 Diastolic blood pressure 76 mm[Hg] Louann Bogner PA-C Work Phone: [facility] 04-04-2024 14:43-0500 Heart rate 82 /min Louann Bogner PA-C Work Phone: [facility] 04-04-2024 14:43-0500 Respiratory rate 12 /min Louann Bogner PA-C Work Phone: [facility] 04-04-2024 14:43-0500 SaO2% (BldA) [Mass fraction] 96 % Louann Bogner PA-C Work Phone: [facility] 04-04-2024 14:43-0500 Systolic blood pressure 132 mm[Hg] Louann Bogner PA-C Work Phone: [facility] 04-01-2024 11:03-0400 Body mass index (BMI) [Ratio] 44.25 kg/m2 Anny Athy PA-C Work Phone: [facility] 04-01-2024 11:03-0400 Body temperature 98.4 [degF] Anny Athy PA-C Work Phone: [facility] 04-01-2024 11:03-0400 Body weight 132 kg Anny Athy PA-C Work Phone: [facility] 04-01-2024 11:03-0400 Diastolic blood pressure 82 mm[Hg] Anny Athy PA-C Work Phone: [facility] 04-01-2024 11:03-0400 Heart rate 88 /min Anny Athy PA-C Work Phone: [facility] 04-01-2024 11:03-0400 Respiratory rate 16 /min Anny Athy PA-C Work Phone: [facility] 04-01-2024 11:03-0400 SaO2% (BldA) [Mass fraction] 95 % Anny Athy PA-C Work Phone: [facility] 04-01-2024 11:03-0400 Systolic blood pressure 142 mm[Hg] Anny Athy PA-C Work Phone: [facility] 03-27-2024 13:52-0400 Diastolic blood pressure 76 mm[Hg] Darrell Jack MD Work Phone: [facility] 03-27-2024 13:52-0400 Heart rate 86 /min Darrell Jack MD Work Phone: [facility] 03-27-2024 13:52-0400 Systolic blood pressure 111 mm[Hg] Darrell Jack MD Work Phone: [facility] 03-27-2024 13:49-0400 Body height 172.7 cm Darrell Jack MD Work Phone: [facility] 03-27-2024 13:49-0400 Body mass index (BMI) [Ratio] 43.91 kg/m2 Darrell Jack MD Work Phone: [facility] 03-27-2024 13:49-0400 Body temperature 98.29 [degF] Darrell Jack MD Work Phone: [facility] 03-27-2024 13:49-0400 Body weight 131 kg Darrell Jack MD Work Phone: [facility] 12-15-2023 14:35-0400 Diastolic blood pressure 79 mm[Hg] Mattie Older [address] PAINTER.CUSTOM APPLICATOR Work Phone: [facility] Comment on above: BP True 12-15-2023 14:35-0400 Heart rate 69 /min Mattie Older [address] PAINTER.CUSTOM APPLICATOR Work Phone: [facility] 12-15-2023 14:35-0400 Systolic blood pressure 130 mm[Hg] Mattie Older [address] PAINTER.CUSTOM APPLICATOR Work Phone: [facility] Comment on above: BP True 11-08-2023 14:03-0400 Body mass index (BMI) [Ratio] 42.42 kg/m2 Felix Ornelas MD Work Phone: [facility] 11-08-2023 14:03-0400 Body weight 126.55 kg Felix Ornelas MD Work Phone: [facility] 11-08-2023 14:03-0400 Diastolic blood pressure 81 mm[Hg] Felix Ornelas MD Work Phone: [facility] 11-08-2023 14:03-0400 Heart rate 78 /min Felix Ornelas MD Work Phone: [facility] 11-08-2023 14:03-0400 SaO2% (BldA) [Mass fraction] 95 % Felix Ornelas MD Work Phone: [facility] 11-08-2023 14:03-0400 Systolic blood pressure 153 mm[Hg] Felix Ornelas MD Work Phone: [facility] 03-24-2023 10:41-0400 Diastolic blood pressure 84 mm[Hg] Darrell Jack MD Work Phone: [facility] 03-24-2023 10:41-0400 Heart rate 80 /min Darrell Jack MD Work Phone: [facility] 03-24-2023 10:41-0400 Systolic blood pressure 131 mm[Hg] Darrell Jack MD Work Phone: [facility] 03-24-2023 10:37-0400 Body height 172.7 cm Darrell Jack MD Work Phone: [facility] 03-24-2023 10:37-0400 Body temperature 97.7 [degF] Darrell Jack MD Work Phone: [facility] 03-24-2023 10:37-0400 Body weight 123.38 kg Darrell Jack MD Work Phone: [facility] 02-26-2023 13:48-0400 Diastolic blood pressure 72 mm[Hg] Mattie Older [address]IGHW[address] PAINTER.CUSTOM APPLICATOR Work Phone: [facility] 02-26-2023 13:48-0400 Systolic blood pressure 134 mm[Hg] Mattie Older [address] PAINTER.CUSTOM APPLICATOR Work Phone: [facility] 02-26-2023 13:00-0400 Body weight 122.[address] PAINTER.CUSTOM APPLICATOR Work Phone: [facility] 02-26-2023 13:00-0400 Heart rate 68 /min Mattie Older [address]IGHW[address] PAINTER.CUSTOM APPLICATOR Work Phone: [facility] 02-26-2023 13:00-0400 Respiratory rate 16 /min Mattie Older [address] PAINTER.CUSTOM APPLICATOR Work Phone: [facility] 02-26-2023 13:00-0400 SaO2% (BldA) [Mass fraction] 97 % Mattie Older [address]IGHW[address] PAINTER.CUSTOM APPLICATOR Work Phone: [facility] 10-08-2022 12:52-0400 Body temperature 98.6 [degF] Emanuel Palomares [address]IGHW[address] PAINTER.CUSTOM APPLICATOR Work Phone: [facility] 10-08-2022 12:52-0400 Body weight 119.75 [address] PAINTER.CUSTOM APPLICATOR Work Phone: [facility] 10-08-2022 12:52-0400 Diastolic blood pressure 73 mm[Hg] Emanuel Palomares [address] PAINTER.CUSTOM APPLICATOR Work Phone: [facility] 10-08-2022 12:52-0400 Heart rate 75 /min Emanuel Palomares [address] PAINTER.CUSTOM APPLICATOR Work Phone: [facility] 10-08-2022 12:52-0400 SaO2% (BldA) [Mass fraction] 95 % Emanuel Palomares [address]HW[address] PAINTER.CUSTOM APPLICATOR Work Phone: [facility] 10-08-2022 12:52-0400 Systolic blood pressure 132 mm[Hg] Emanuel Palomares [address] PAINTER.CUSTOM APPLICATOR Work Phone: [facility] 08-25-2022 13:05-0400 Body height 172.7 cm David Chicas MD Work Phone: [facility] 08-25-2022 13:05-0400 Body temperature 99.39 [degF] David Chicas MD Work Phone: [facility] 08-25-2022 13:05-0400 Body weight 114.31 kg David Chicas MD Work Phone: [facility] 08-25-2022 13:05-0400 Diastolic blood pressure 74 mm[Hg] David Chicas MD Work Phone: [facility] 08-25-2022 13:05-0400 Heart rate 77 /min David Chicas MD Work Phone: [facility] 08-25-2022 13:05-0400 Respiratory rate 14 /min David Chicas MD Work Phone: [facility] 08-25-2022 13:05-0400 SaO2% (BldA) [Mass fraction] 94 % David Chicas MD Work Phone: [facility] 08-25-2022 13:05-0400 Systolic blood pressure 134 mm[Hg] David Chicas MD Work Phone: [facility] 07-20-2022 16:07-0500 Body height 172.7 cm Prachi Cuadra APRN.CUSTOM APPLICATOR Work Phone: [facility] 07-20-2022 16:07-0500 Body weight 119.3 kg Prachi Cuadra APRN.CUSTOM APPLICATOR Work Phone: [facility] 07-20-2022 16:07-0500 Diastolic blood pressure 80 mm[Hg] Prachi Cuadra APRN.CUSTOM APPLICATOR Work Phone: [facility] 07-20-2022 16:07-0500 Heart rate 70 /min Prachi Cuadra APRN.CUSTOM APPLICATOR Work Phone: [facility] 07-20-2022 16:07-0500 Respiratory rate 12 /min Prachi Cuadra APRN.CUSTOM APPLICATOR Work Phone: [facility] 07-20-2022 16:07-0500 SaO2% (BldA) [Mass fraction] 96 % Prachi Cuadra APRN.CUSTOM APPLICATOR Work Phone: [facility] 07-20-2022 16:07-0500 Systolic blood pressure 140 mm[Hg] Prachi Cuadra [address] PAINTER.CUSTOM APPLICATOR Work Phone: [facility] 06-25-2022 12:53-0500 Body height 172.7 cm Emanuel Palomares APRN.CUSTOM APPLICATOR Work Phone: [facility] 06-25-2022 12:53-0500 Body temperature 98.29 [degF] Emanuel Palomares APRN.CUSTOM APPLICATOR Work Phone: [facility] 06-25-2022 12:53-0500 Body weight 116.57 kg Emanuel Palomares APRN.CUSTOM APPLICATOR Work Phone: [facility] 06-25-2022 12:53-0500 Diastolic blood pressure 82 mm[Hg] Emanuel Palomares APRN.CUSTOM APPLICATOR Work Phone: [facility] 06-25-2022 12:53-0500 Heart rate 84 /min Emanuel Palomares APRN.CUSTOM APPLICATOR Work Phone: [facility] 06-25-2022 12:53-0500 Systolic blood pressure 130 mm[Hg] Emanuel Jones [address] PAINTER.CUSTOM APPLICATOR Work Phone: [facility] 05-01-2022 17:12-0500 Body temperature 98.4 [degF] Chemo Christie MD Work Phone: [facility] 05-01-2022 17:12-0500 Body weight 121.47 kg Chemo Christie MD Work Phone: [facility] 05-01-2022 17:12-0500 Diastolic blood pressure 76 mm[Hg] Chemo Christie MD Work Phone: [facility] 05-01-2022 17:12-0500 Heart rate 76 /min Chemo Christie MD Work Phone: [facility] 05-01-2022 17:12-0500 Respiratory rate 18 /min Chemo Christie MD Work Phone: [facility] 05-01-2022 17:12-0500 SaO2% (BldA) [Mass fraction] 95 % Chemo Christie MD Work Phone: [facility] 05-01-2022 17:12-0500 Systolic blood pressure 148 mm[Hg] Chemo Christie MD Work Phone: [facility] 04-02-2022 14:45-0400 Body temperature 98.29 [degF] Anny Athy PA-C Work Phone: [facility] 04-02-2022 14:45-0400 Body weight 123.74 kg Anny Athy PA-C Work Phone: [facility] 04-02-2022 14:45-0400 Diastolic blood pressure 80 mm[Hg] Anny Athy PA-C Work Phone: [facility] 04-02-2022 14:45-0400 Heart rate 85 /min Anny Athy PA-C Work Phone: [facility] 04-02-2022 14:45-0400 Respiratory rate 19 /min Anny Athy PA-C Work Phone: [facility] 04-02-2022 14:45-0400 SaO2% (BldA) [Mass fraction] 95 % Anny CHESTER-Toña Work Phone: [facility] 04-02-2022 14:45-0400 Systolic blood pressure 164 mm[Hg] Anny Iqbal PA-C Work Phone: [facility] 03-05-2022 11:40-0400 Body weight 124.74 kg Rajiv Isaac DO Work Phone: [facility] 03-05-2022 11:40-0400 Diastolic blood pressure 80 mm[Hg] Rajiv Isaac DO Work Phone: [facility] 03-05-2022 11:40-0400 Heart rate 75 /min Rajiv Isaac DO Work Phone: [facility] 03-05-2022 11:40-0400 Systolic blood pressure 143 mm[Hg] Rajiv Isaac DO Work Phone: [facility] 02-25-2022 13:03-0400 Body height 172.7 cm David Chicas MD Work Phone: [facility] 02-25-2022 13:03-0400 Body temperature 100.2 [degF] David Chicas MD Work Phone: [facility] 02-25-2022 13:03-0400 Body weight 123.38 kg David Chicas MD Work Phone: [facility] 02-25-2022 13:03-0400 Diastolic blood pressure 74 mm[Hg] David Chicas MD Work Phone: [facility] 02-25-2022 13:03-0400 Respiratory rate 15 /min David Chicas MD Work Phone: [facility] 02-25-2022 13:03-0400 Systolic blood pressure 134 mm[Hg] David Chicas MD Work Phone: [facility] Encounters Encounter Date Encounter Type Care Provider Facility Start: 04-17-2025 ambulatory Patricia Costa ACREAGE REPORTER Fac ility:[facility] Start: 04-02-2025 ambulatory [facility] Facility:[facility] Start: 03-26-2025 End: 03-26-2025 ambulatory [facility] Facility:[facility] Start: 02-20-2025 End: 02-20-2025 ambulatory [facility] Facility:[facility] Start: 02-20-2025 End: 02-20-2025 ambulatory [facility] Facility:[facility] Start: 02-12-2025 End: 02-12-[address] David Chicas MD Work Phone: -Radiology [facility] Start: 02-12-2025 End: 02-12-[address] Elvia Bowers MD -Radiology [facility] Work Phone: Start: 02-12-2025 End: 02-12-2025 ambulatory [facility] Facility:[facility] Start: 02-06-2025 Encounter for genera l adult medical examination without abnormal findings Patricia Costa NP [facility] Start: 02-02-2025 End: 02-09-2025 ambulatory [facility] [address] PAINTER.CUSTOM APPLICATOR Work Phone: [facility] [place] Comment on above: Folic Acid Start: 01-30-2025 End: 01-30-2025 Patient encounter procedure Patricia Costa ACREAGE REPORTER-C -Sleep Lab Work Phone: Start: 01-30-2025 End: 01-31-2025 Refill David Chicas MD Work Phone: Internal Medicine [facility] Comment on above: Refill Request Start: 01-30-2025 End: 01-30-2025 ambulatory [facility] Facility:[facility] Start: 01-27-2025 End: 01-31-2025 Refill David Chicas MD Work Phone: [facility] [place] Comment on above: Refill Request Start: 01-02-2025 End: 01-02-2025 ambulatory [facility] Facility:[facility] Start: 12-28-2024 End: 12-28-2024 ambulatory David Chicas MD Work Phone: [facility] [place] Comment on above: BUPROPION Start: 12-25-2024 End: 12-25-2024 Office outpatient visit 25 minutes David Chicas MD Work Phone: [facility] [place] Comment on above: Class 3 severe obesi ty with serious comorbidity and body mass index (BMI) of 40.0 to 44.9 in adult, unspecified obesity type (HCC); Essential (primary) hypertension Start: 12-25-2024 End: 12-25-2024 [facility] Facility:[facility] Start: 12-19-2024 End: 01-19-2025 ambulatory David Chicas MD Work Phone: [facility] [place] Start: 11-24-2024 End: 11-24-2024 Office outpatient visit 25 minutes Mattie Somers APRN.CNP Work Phone: [facility] [place] Comment on above: Insomnia, unspecifie d type (Primary Dx); Class 3 severe obesity with serious comorbidity and body mass index (BMI) of 40.0 to 44.9 in adult, unspecified obesity type (HCC); Weight loss counseling, encounter for Start: 11-24-2024 End: 11-24-2024 [facility] Facility:[facility] Start: 11-21-2024 End: 11-21-2024 Telemedicine consultation with patient Darrell Jack MD Work Phone: Rheumatology Start: 11-21-2024 End: 11-21-2024 ambulatory Darrell Jack MD Work Phone: Rheumatology Comment on above: Inflammatory arthrit is (Primary Dx); Long-term use of Plaquenil; Encounter for long-term (current) use of medications; Pain in joint, multiple sites; Osteoarthritis of multiple joints, unspecified osteoarthritis type Start: 11-20-2024 End: 11-20-2024 Patient encounter procedure Felix Ornelas MD Work Phone: Cardiology Comment on above: Primary hypertension (Primary Dx); Pure hypercholesterolemia Start: 11-20-2024 End: 11-20-2024 [facility] Facility:[facility] Start: 11-14-2024 End: 11-14-2024 Patient encounter procedure Patricia ONEILL -[facility] Work Phone: Start: 11-14-2024 End: 11-15-[address] David Chicas MD Work Phone: [facility] Work Phone: Comment on above: Refill Request Start: 11-13-2024 End: 11-13-2024 Chart abstracting Darrell Jack MD Work Phone: Rheumatology Comment on above: Abstract (PLQ eye ex am) Start: 11-04-2024 End: 11-06-2024 Refill Darrell Jack MD Work Phone: Rheumatology Comment on above: Refill Request Start: 10-27-2024 End: 10-27-2024 Office outpatient visit [address] PAINTER.CUSTOM APPLICATOR Work Phone: [facility] [place] Comment on above: Cellulitis of right hand (Primary Dx); Cat bite, subsequent encounter; Class 3 severe obesity with serious comorbidity and body mass index (BMI) of 40.0 to 44.9 in adult, unspecified obesity type Start: 10-27-2024 End: 10-27-2024 ambulatory [facility] Facility:[facility] Start: 10-25-2024 End: 10-25-2024 Office outpatient visit [address] PAINTER.CUSTOM APPLICATOR Work Phone: [facility] [place] Comment on above: Cellulitis of right hand (Primary Dx); Cat bite, subsequent encounter; Other fatigue Start: 10-25-2024 End: 10-25-2024 ambulatory DAVID GANCINDY Facility:[facility] Start: 10-20-2024 End: 12-20-2024 Follow-up encounter David Chicas MD Work Phone: [facility] [place] Start: 10-19-2024 End: 12-19-2024 Follow-up encounter Darrell Jack MD Work Phone: Rheumatology Start: 10-19-2024 End: 10-19-2024 ambulatory DARRELL JACK Facility:[facility] Start: 10-16-2024 End: 10-16-2024 Office outpatient visit 25 minutes David Chicas MD Work Phone: Internal Medicine [facility] Comment on above: Cat bite, subsequent encounter (Primary Dx); Cellulitis of right hand Start: 10-16-2024 End: 10-16-2024 ambulatory [facility] Facility:[facility] Start: 10-13-2024 End: 10-13-2024 Emergency department patient visit Dr. David Chicas MD Work Phone: -Emergency Department Work Phone: Start: 10-10-2024 End: 10-13-2024 ambulatory David Chicas MD Work Phone: Internal Medicine [place] [id number] Start: 09-20-2024 End: 09-20-2024 ambulatory [facility] Facility:[facility] Start: 09-19-2024 End: 11-19-2024 Follow-up encounter Darrell Jack MD Work Phone: Rheumatology Start: 09-18-2024 End: 09-18-2024 [facility] Facility:[facility] Start: 09-16-2024 End: 09-18-2024 Refill Darrell Jack MD Work Phone: Rheumatology Comment on above: Refill Request Start: 09-10-2024 End: 09-11-2024 Refill David Chicas MD Work Phone: [facility] [place] Comment on above: Refill Request Start: 09-06-2024 End: 09-07-2024 Refill Felix Ornelas MD Work Phone: Cardiology Comment on above: Refill Request Start: 08-26-2024 End: 10-26-2024 Follow-up encounter Darrell Jack MD Work Phone: Rheumatology Start: 08-25-2024 End: 08-25-2024 ambulatory DARRELL JACK Facility:[facility] Start: 08-12-2024 End: 08-14-2024 Refill Emanuel Palomares APRN.CNP Work Phone: Rheumatology Comment on above: Refill Request Start: 07-27-2024 End: 07-27-2024 ambulatory DAVID CHICAS Facility:[facility] Start: 07-27-2024 End: 07-27-2024 Patient encounter procedure Mattie Somers APRN.CNP Work Phone: Internal Medicine [facility] Comment on above: Class 3 severe obesi ty with serious comorbidity and body mass index (BMI) of 40.0 to 44.9 in adult, unspecified obesity type (HCC) (Primary Dx); Depression with anxiety Start: 07-24-2024 End: 07-24-2024 ambulatory DARRELL JACK Facility:[facility] Start: 07-15-2024 End: 07-17-2024 Refill Darrell Jack MD Work Phone: Rheumatology Comment on above: Refill Request Start: 07-05-2024 End: 07-05-2024 ambulatory Eddie Lopez Dobrauliodayton CLIFTON.CUSTOM APPLICATOR Work Phone: Neurology Comment on above: Migraine without aur a and without status migrainosus, not intractable Start: 07-05-2024 End: 07-05-2024 Telemedicine consultation with patient Eddie Lopez Dobrauliodayton CLIFTON.CUSTOM APPLICATOR Work Phone: Neurology Start: 07-01-2024 End: 07-03-2024 ambulatory David Chicas MD Work Phone: [facility] [place] Comment on above: Thyroxine Start: 06-29-2024 End: 06-30-2024 Refill David Chicas MD Work Phone: [facility] [place] Comment on above: Refill Request Results Start: 06-26-2024 End: 06-26-2024 ambulatory DAVID CHICAS Facility:[facility] Start: 06-26-2024 End: 06-26-2024 Patient encounter procedure Mattie Somers APRN.CUSTOM APPLICATOR Work Phone: [facility] [place] Comment on above: Other fatigue (Prima ry Dx); Class 3 severe obesity with serious comorbidity and body mass index (BMI) of 40.0 to 44.9 in adult, unspecified obesity type (HCC); Hypothyroidism, unspecified type; Essential hypertension; Prediabetes; Obstructive sleep apnea syndrome; Vitamin D deficiency Start: 06-22-2024 End: 06-22-2024 ambulatory DARRELL JACK Facility:[facility] Start: 06-21-2024 End: 06-21-2024 Telemedicine consultation with patient Darrell Jack MD Work Phone: Rheumatology Start: 06-21-2024 End: 06-21-2024 E-mail encounter from caregiver Darrell Jack MD Work Phone: Rheumatology Start: 06-21-2024 End: 06-21-2024 Patient encounter procedure Patricia Costa ACREAGE REPORTERKevin -[facility] Work Phone: Start: 06-21-2024 End: 06-21-2024 ambulatory Darrell Jack MD Work Phone: Rheumatology Comment on above: Sulfasalazine inform ation Inflammatory arthrit is (Primary Dx); Long-term use of Plaquenil; Encounter for long-term (current) use of medications; Pain in joint, multiple sites; Osteoarthritis of multiple joints, unspecified osteoarthritis type Start: 06-15-2024 End: 06-15-2024 ambulatory DAVID CHICAS Facility:[facility] Start: 06-05-2024 End: 06-05-2024 ambulatory [facility] Facility:[facility] Start: 05-30-2024 End: 06-02-2024 ambulatory David Chicas MD Work Phone: Internal Medicine [facility] Start: 05-19-2024 End: 05-19-2024 Telephone encounter Darrell Jack MD Work Phone: Rheumatology Start: 05-18-2024 End: 05-18-2024 ambulatory DAVID CHICAS Facility:[facility] Start: 05-18-2024 End: 05-18-2024 Subsequent hospital visit by physician Main A21 4 Work Phone: Radiology Comment on above: Pain in joint, multi ple sites [M25.50] Start: 04-26-2024 End: 04-26-[address] CAIO ADAM MD Facility:[facility] Start: 04-26-2024 End: 04-26-2024 Minor Procedure SARA AUSTIN DO [facility] Start: 04-22-2024 End: 04-24-2024 Refill Mattie Somers APRN.CUSTOM APPLICATOR Work Phone: Internal Medicine [facility] Comment on above: Refill Request Start: 04-17-2024 End: 04-17-2024 ambulatory [facility] Facility:[facility] Start: 04-04-2024 End: 04-04-2024 Office outpatient visit 15 minutes Louann Damon PA-C Work Phone: Family Medicine [facility] Comment on above: Herpes zoster withou t complication (Primary Dx) Start: 04-04-2024 End: 04-04-2024 Telephone encounter David Chicas MD Work Phone: Internal Medicine [facility] Comment on above: Patient Update Start: 04-04-2024 End: 04-04-2024 ambulatory Eddie Wilson APRN.CUSTOM APPLICATOR Work Phone: Neurology Comment on above: Migraine without aur a and without status migrainosus, not intractable Start: 04-04-2024 End: 04-04-2024 Telemedicine consultation with patient Eddie Jessica Wilson APRN.CUSTOM APPLICATOR Work Phone: Neurology Start: 04-01-2024 End: 04-01-2024 [facility] Facility:[facility] Start: 04-01-2024 End: 04-01-2024 Patient encounter procedure Anny Iqbal PA-C Work Phone: [facility] Comment on above: Herpes zoster withou t complication (Primary Dx) Start: 03-30-2024 End: 03-30-2024 Refill Candida Guerra APRN.CUSTOM APPLICATOR Work Phone: Internal Medicine [facility] Comment on above: Refill Request Start: 03-27-2024 End: 04-12-2024 Telephone encounter Miri CORRAL Radiology Comment on above: Appointment Start: 03-27-2024 End: 03-27-2024 Patient encounter procedure Darrell Jack MD Work Phone: Rheumatology Comment on above: Inflammatory arthrit is (Primary Dx); Long-term use of Plaquenil; Osteoarthritis of multiple joints, unspecified osteoarthritis type; Pain in joint, multiple sites Start: 02-22-2024 End: 02-22-[address] PAINTER.CUSTOM APPLICATOR Work Phone: Internal Medicine [facility] Comment on above: Refill Request Start: 02-08-2024 End: 02-08-[address] PAINTER.CUSTOM APPLICATOR Work Phone: [facility] [place] Comment on above: Refill Request Start: 12-15-2023 End: 12-15-2023 Patient encounter procedure Mattie Somers APRN.CUSTOM APPLICATOR Work Phone: Internal Medicine [facility] Comment on above: Essential hypertensi on (Primary Dx); Mixed hyperlipidemia; Prediabetes; Hypothyroidism, unspecified type Start: 11-30-2023 ambulatory David Perez Work Phone: Internal [facility] Start: 11-08-2023 End: 11-08-2023 Patient encounter procedure Felix Ornelas MD Work Phone: Cardiology Comment on above: Essential hypertensi on (Primary Dx); Hyperlipidemia, unspecified hyperlipidemia type; Preoperative clearance Start: 11-08-2023 End: 11-08-2023 Preoperative state Felix Ornelas MD Work Phone: [facility] Work Phone: Start: 11-06-[address] PAINTER.CUSTOM APPLICATOR Work Phone: Cardiology Comment on above: Refill Request Start: 10-27-2023 End: 10-27-2023 Subsequent hospital visit by physician [employer] [employer] [facility] (I-Stat/1.5t) Work Phone: Radiology Start: 10-22-2023 Chart abstracting Darrell Anand i, MD Work Phone: Rheumatology Comment on above: Abstract (PLQ eye ex am) Start: 09-23-2023 End: 09-23-2023 Patient encounter procedure Kusum Vetovitz PA-C Work Phone: Orthopaedics Comment on above: Acute pain of left k nee (Primary Dx); Arthritis of knee Start: 09-15-2023 End: 09-15-[address] PAINTER.CUSTOM APPLICATOR Work Phone: Neurology Comment on above: Migraine without aur a and without status migrainosus, not intractable (Primary Dx) Start: 09-15-2023 End: 09-15-2023 Telemedicine consultation with patient Keiko Maloney [address] PAINTER.CUSTOM APPLICATOR Work Phone: [facility] Start: 09-13-2023 End: 09-13-2023 ambulatory [facility] Work Phone: Start: 09-13-2023 End: 09-13-2023 Patient encounter procedure [facility]-Radiology, [facility] Work Phone: Start: 09-13-2023 [address] Somers [address] PAINTER .CUSTOM APPLICATOR Work Phone: Internal Medicine [facility] Comment on above: Refill Request Start: 08-28-[address]res [address] PAINTER.CUSTOM APPLICATOR Work Phone: Rheumatology Comment on above: Refill Request Start: 04-17-[address] Somers [address] PAINTER .CUSTOM APPLICATOR Work Phone: Internal Medicine [facility] Comment on above: Refill Request Start: 04-13-2023 End: 04-13-2023 ambulatory [facility] Work Phone: Start: 04-13-2023 End: 04-13-2023 Patient encounter procedure [facility]-Cat Scan, [facility] Work Phone: Start: 03-24-2023 End: 03-24-2023 Patient encounter procedure Darrell Jack MD Work Phone: Rheumatology Comment on above: Inflammatory arthrit is (Primary Dx); Long-term use of Plaquenil; Osteoarthritis of multiple joints, unspecified osteoarthritis type Start: 02-26-2023 End: 02-26-2023 Patient encounter procedure Mattie Somers APRN.CUSTOM APPLICATOR Work Phone: Internal Medicine [place] Comment on above: Essential hypertensi on (Primary Dx); Mixed hyperlipidemia; Lupus erythematosus, unspecified form; Prediabetes; Acquired hypothyroidism; Depression with anxiety; Gastroesophageal reflux disease, unspecified whether esophagitis present; Travel advice encounter; Need for influenza vaccination Start: 02-09-2023 ambulatory David Perez Work Phone: Internal Medicine [facility] [place] Start: 01-22-2023 Refill Darrell Jack MD Work Phone: Rheumatology Comment on above: Refill Request Start: 12-28-2022 Refill Rajiv Frausto Work Phone: Neurology Comment on above: Refill Request Start: 11-23-2022 End: 11-23-2022 Subsequent hospital visit by physician Aldair [facility] [place] Meneses Work Phone: Radiology Comment on above: Bilateral foot pain [M79.671, M79.672] Start: 10-08-2022 End: 10-08-2022 Patient encounter procedure Emanuel Palomares APRN.CUSTOM APPLICATOR Work Phone: Rheumatology Comment on above: Inflammatory arthrit is (Primary Dx); Osteoarthritis of multiple joints, unspecified osteoarthritis type; Encounter for long-term (current) use of NSAIDs Start: 09-25-2022 Refill Mattie Somers APRN .CUSTOM APPLICATOR Work Phone: Internal Medicine [place] Comment on above: Refill Request Start: 08-25-2022 End: 08-25-2022 Patient encounter procedure David Chicas MD Work Phone: Internal [facility] Comment on above: Insulin resistance ( Primary Dx); Metabolic syndrome; Prediabetes; Morbid obesity (HCC); Breast cancer screening by mammogram; Essential hypertension; Hyperlipidemia, unspecified hyperlipidemia type; WHITNEY (dyspnea on exertion) Start: 07-20-2022 End: 07-20-2022 Patient encounter procedure Prachi Cuadra HIGHW[address] PAINTER.CUSTOM APPLICATOR Work Phone: Cardiology Comment on above: Essential hypertensi on (Primary Dx); Palpitations; Hyperlipidemia, unspecified hyperlipidemia type; Obesity (BMI 35.0-39.9 without comorbidity); Elevated hemoglobin A1c Start: 07-09-2022 Orders Only Prachi mccann HIGHW[address] PAINTER.CUSTOM APPLICATOR Work Phone: [place] [facility] Comment on above: Results Start: 06-25-2022 End: 06-25-2022 Patient encounter procedure Emanuel Palomares [address]IGHW[address] PAINTER.CUSTOM APPLICATOR Work Phone: Rheumatology Comment on above: Inflammatory arthrit is (Primary Dx); Osteoarthritis of multiple joints, unspecified osteoarthritis type; Long-term use of Plaquenil Start: 06-09-2022 Telephone encounter Sara unger [address]IGHW[address] PAINTER.CUSTOM APPLICATOR Work Phone: [facility] Comment on above: Results Start: 05-01-2022 End: 05-01-2022 Patient encounter procedure Chemo Christie MD Work Phone: [facility] Comment on above: Throat pain (Primary Dx) Start: 04-21-2022 Refill David Perez Work Phone: Internal Medicine [facility] Comment on above: Refill Request Start: 04-06-2022 End: 04-06-2022 ambulatory [facility] Work Phone: Start: 04-06-2022 End: 04-06-2022 Patient encounter procedure [facility] Start: 04-03-2022 Telephone encounter Anny mccann PA-C Work Phone: [facility] Comment on above: Results Start: 04-02-2022 End: 04-02-2022 Subsequent hospital visit by physician Aldair [facility] Work Phone: Radiology Comment on above: Groin pain, right [R 10.31] Start: 04-02-2022 End: 04-02-2022 Patient encounter procedure Anny Iqbal PA-C Work Phone: [facility] Comment on above: Groin pain, right (P rimary Dx) Start: 03-18-2022 ambulatory David Perez Work Phone: Internal Medicine [facility] Comment on above: Prescription Start: 03-05-2022 End: 03-05-2022 Patient encounter procedure Rajiv Perkins Isaac Work Phone: Neurology Comment on above: Migraine without aur a and without status migrainosus, not intractable (Primary Dx); 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Start: 02-27-2022 Telephone encounter Darrell Zapata MD Work Phone: Rheumatology Comment on above: Medication Problem Start: 02-26-2022 Telephone encounter David killian MD Work Phone: Internal Medicine [facility] Comment on above: Insurance Authorizat ion Start: 02-25-2022 End: 02-25-2022 ambulatory Darrell Jack MD Work Phone: Rheumatology Comment on above: Lupus (HCC) (Primary Dx); Long-term use of Plaquenil; Pain in joint, multiple sites; Long-term use of immunosuppressant medication; Inflammatory arthritis Start: 02-25-2022 End: 02-25-2022 Telemedicine consultation with patient Darrell Jack MD Work Phone: [facility] Start: 02-25-2022 End: 02-25-2022 Patient encounter procedure David Chicas MD Work Phone: Internal Medicine [place] Comment on above: Prediabetes (Primary Dx); Lupus erythematosus, unspecified form; Metabolic syndrome; Depression with anxiety; Screening for HIV (human immunodeficiency virus); Encounter for immunization Start: 02-24-2022 End: 02-24-2022 Subsequent hospital visit by physician Us Granger A21 4 Work Phone: Radiology Comment on above: Lupus (HCC) [M32.9] Start: 12-29-2021 Telephone encounter Refugio LOVELACE Radiology Comment on above: Appointment Start: 12-23-2021 End: 12-23-2021 Subsequent hospital visit by physician Aldair [facility] Work Phone: Radiology Comment on above: Lupus [M32.9] Start: 12-02-2021 Refill David Perez Work Phone: Internal Medicine [facility] Comment on above: Refill Request; Refi ll Request Start: 09-24-[address] PAINTER.CUSTOM APPLICATOR Work Phone: Cardiology Comment on above: Refill Request Start: 09-20-2021 Refill Leyda Duncan [place] Work Phone: Internal Medicine [facility] Comment on above: Refill Request Start: 09-08-2021 ambulatory David Perez Work Phone: Internal Medicine [facility] Comment on above: Levoxyl Start: 09-02-2021 Refill David Perez Work Phone: Internal Medicine [facility] Comment on above: Refill Request Start: 02-19-2021 End: 02-19-2021 Subsequent hospital visit by physician Aldair [facility] Work Phone: Radiology Comment on above: Post-acute sequelae of COVID-19 ([facility]) [B94.8] Procedures Date Procedure Procedure Detail Performing Clinician Start: 02-12-2025 Radex sacrum & coccy x minimum [address] David Chicas MD Work Phone: Start: 10-19-2024 Lipid 1996 panel - S rhea or Plasma Darrell Jack MD Work Phone: Start: 05-18-2024 Us compl joint r-t w /image documentation Darrlel Jack MD Work Phone: Start: 12-10-2023 Lipid 1996 panel - S rhea or Plasma Mattie Somers HIGHWAY PAINTER.CUSTOM APPLICATOR Work Phone: Start: 11-08-2023 Ecg routine ecg w/le ast 12 lds i&r only [facility] Provider Start: 10-27-2023 Mri spinal canal lum bar w/o contrast material [facility] Provider Start: 09-23-2023 Arthrocentesis aspir &/inj major jt/bursa w/o us Kusum Block PA-C Work Phone: Start: 09-13-2023 X-ray of lumbar spin e, two or three views Start: 04-13-2023 CT of chest Start: 02-26-2023 INFLUENZA VACCINE, A GE 6 MO - 64 YR, QUADRIVALENT (AFLURIA, FLULAVAL, FLUZONE) Mattie Somers HIGHW[address] PAINTER.CUSTOM APPLICATOR Work Phone: Start: 12-08-2022 Mammography Rajiv Isaac DO Work Phone: Start: 11-23-2022 Radex foot complete minimum 3 views Rivas Beck Work Phone: Start: 11-23-2022 Lipid 1996 panel - S rhea or Plasma David Chicas MD Work Phone: Start: 05-01-2022 STREP A MOLECULAR (POC) Corey Pham HIGHWAY PAINTER.CUSTOM APPLICATOR Work Phone: Start: 04-06-2022 CT of chest Start: 04-02-2022 Radex hip unilateral with pelvis 2-3 views Anny Iqbal PA-C Work Phone: Start: 02-24-2022 US HAND/WRIST SYNOVI AL SCREEN RT Darrell Jack MD Work Phone: Start: 12-23-2021 Radex spine lumbosac ral 2/3 views Darrell Jack MD Work Phone: Start: 10-28-[address] [facility] Start: 02-19-2021 Radiologic exam ches t [address] PAINTER.CUSTOM APPLICATOR Work Phone: Start: 11-14-2020 Mammography David killian MD Work Phone: Start: 12-10-2017 Colonoscopy David killian MD Work Phone: Gallbladder structur e (body structure) SARA VASSAS DO Plan of Treatment Date Care Activity Detail Author Start: 05-11-2033 Urine microalbumin profile DTaP,Tdap,Td Vaccine (4 - Td or Tdap) [facility] Start: 10-19-2029 Lipid panel Lipid Screening [facility] Start: 12-09-2028 Lipid panel Lipid Screening [facility] Start: 12-11-2027 Colonoscopy COLONOSCOPY [facility] Start: 12-11-2027 COLORECTAL CANCER SCREENING COLORECTAL CANCER SCREENING [facility] Start: 12-11-2027 Screening for malignant neoplasm of colon [facility] Start: 11-24-2027 Lipid 1996 panel - Serum or Plasma Lipid Screening [facility] Start: 11-24-2027 Lipid panel Lipid Screening [facility] Start: 11-24-2027 LIPID SCREEN LIPID SCREEN [facility] Start: 07-08-2027 LIPID SCREEN LIPID SCREEN [facility] Start: 06-26-2027 Diabetes Screening Diabetes Screening [facility] Start: 06-15-2027 Diabetes Screening Diabetes Screening [facility] Start: 02-20-2027 LIPID SCREEN LIPID SCREEN [facility] Start: 12-09-2026 Diabetes Screening Diabetes Screening [facility] Start: 08-13-2026 LIPID SCREEN LIPID SCREEN [facility] Start: 06-04-2026 Diabetes Screening Diabetes Screening [facility] Start: 02-09-2026 Diabetes Screening Diabetes Screening [facility] Start: 12-25-2025 Annual PCP Team Chronic Disease Visit Annual PCP Team Chronic Disease Visit [facility] Start: 11-24-2025 Annual PCP Team Chronic Disease Visit Annual PCP Team Chronic Disease Visit [facility] Start: 11-19-2025 End: 11-19-2025 Follow-up encounter 11/19/2025 1:00 PM EDT [facility] Rheumatology [id number] [place] [id number] Darrell Jack MD [address] [place] [address] FOLLOW UP Rheumatology Comment on above: FOLLOW UP Start: 11-19-2025 End: 11-19-2025 Patient encounter procedure 11/19/2025 11:20 AM EDT Office Visit Cardiology [address] [place] [address] Felix Ornelas MD [address] [facility], [address] [place] [address] 1 year follow up Cardiology Comment on above: 1 year follow up Start: 10-27-2025 Annual PCP Team Chronic Disease Visit Annual PCP Team Chronic Disease Visit [facility] Start: 10-25-2025 Annual PCP Team Chronic Disease Visit Annual PCP Team Chronic Disease Visit [facility] Start: 10-16-2025 Annual PCP Team Chronic Disease Visit Annual PCP Team Chronic Disease Visit [facility] Start: 07-27-2025 Annual PCP Team Chronic Disease Visit Annual PCP Team Chronic Disease Visit [facility] Start: 07-23-2025 End: 07-23-2025 Follow-up encounter 07/23/2025 11:40 AM EST [facility] Rheumatology [address] [place] [address] Darrell Jack MD [address] [place] [address] FOLLOW UP Rheumatology Comment on above: FOLLOW UP Start: 07-08-2025 DIABETES SCREEN DIABETES SCREEN [facility] Start: 06-26-2025 Annual PCP Team Chronic Disease Visit Annual PCP Team Chronic Disease Visit [facility] Start: 04-04-2025 Annual PCP Team Chronic Disease Visit Annual PCP Team Chronic Disease Visit [facility] Start: 03-27-2025 BP Controlled (<130/80) BP Controlled (<130/80) [facility] Start: 03-27-2025 End: 03-27-2025 Patient encounter procedure Rheumatology Comment on above: Follow up Start: 03-26-2025 End: 03-26-2025 Patient encounter procedure 03/26/2025 1:00 PM EDT Office Visit Internal Medicine [facility] [address] [place], [place] [id number] Mattie Somers APRN.CUSTOM APPLICATOR [address] [place], [place] [address] 3 month follow up [facility] [place] Comment on above: 3 month follow up Start: 03-15-2025 Screening for malignant neoplasm of breast Mammogram Screening [facility] Start: 02-20-2025 End: 02-20-2025 Follow-up encounter 02/20/2025 2:40 PM EDT [facility] Rheumatology [address] [place] [address] Darrell Jack MD [address] [place] [address] Follow up Rheumatology Comment on above: Follow up Start: 02-20-2025 DIABETES SCREEN DIABETES SCREEN [facility] Start: 01-29-2025 Influenza vaccination Influenza Vaccine (#1) [facility] Start: 01-02-2025 End: 01-02-2025 Follow-up encounter 01/02/2025 1:00 PM EDT [facility] Neurology [address] [place] [address] Eddie Wilson APRN.CUSTOM APPLICATOR [address] [place] [address] Follow up Neurology Comment on above: Follow up Start: 12-22-2024 End: 12-22-2024 Patient encounter procedure 12/22/2024 1:20 PM EDT Office Visit [facility] [address] [place], [place] [id number] Mattie Somers APRN.CUSTOM APPLICATOR [address] [place], [place] [id number] 4 week adipex Internal Medicine [facility] Comment on above: 4 week adipex Start: 12-14-2024 Annual PCP Team Chronic Disease Visit Annual PCP Team Chronic Disease Visit [facility] Start: 12-14-2024 Covid-19 Vaccine ( season) Covid-19 Vaccine ( season) [facility] Comment on above: Postponed from 01/29/2023 (Declined at t his time) Start: 12-14-2024 Hepatitis B Vaccine (1 of 3 - 19+ 3-dose series) Hepatitis B Vaccine (1 of 3 - 19+ 3-dose series) [facility] Comment on above: Postponed from 1984 (Declined at t his time) Start: 12-14-2024 Screening for malignant neoplasm of breast Mammogram Screening [facility] Comment on above: Postponed from 12/09/2023 (Declined at t his time) Start: 11-24-2024 End: 11-24-2024 Patient encounter procedure 11/24/2024 1:00 PM EDT Office Visit [facility] Medicine [place] [address] [place], [place] [id number] Mattie Somers APRN.CUSTOM APPLICATOR [address] [place], [place] [id number] 4 week follow up [facility] Comment on above: 4 week follow up Start: 11-21-2024 End: 11-21-2024 Follow-up encounter 11/21/2024 2:40 PM EDT [facility] Rheumatology [address] [place] [address] Darrell Jack MD [address] [place] [address] Follow up Rheumatology Comment on above: Follow up Start: 11-20-2024 End: 11-20-2024 Patient encounter procedure Cardiology Comment on above: 1 yr follow up Start: 10-27-2024 End: 10-27-2024 Patient encounter procedure 10/27/2024 2:40 PM EDT Office Visit Internal Medicine [facility] [address] [place], [place] [id number] Mattie Somers APRN.CUSTOM APPLICATOR [address] [place] [address] Cellulitis follow up [facility] [place] Comment on above: Cellulitis follow up Start: 10-25-2024 End: 10-25-2024 Patient encounter procedure 10/25/2024 12:20 PM EDT Office Visit Internal Medicine [facility] [address] [place] [address] Mattie Somers APRN.CUSTOM APPLICATOR [address] [place] [address] 3 month follow up [facility] [place] Comment on above: 3 month follow up Start: 10-13-2024 [facility] Start: 10-10-2024 End: 01-09-2025 Lipid 1996 panel - Serum or Plasma LIPID PANEL, FASTING Lab Routine Hyperlipidemia Expected: 10/10/2024, Expires: 01/09/2025 [facility] Work Phone: Comment on above: Expected: 10/10/2024, Expires: Start: 09-26-2024 HPV TESTING HPV TESTING [facility] Start: 09-26-2024 Screening for malignant neoplasm of cervix HPV Testing [facility] Start: 09-20-2024 End: 09-20-2024 Follow-up encounter 09/20/2024 2:40 PM EDT [facility] Rheumatology [address] [place] [address] Darrell Jack MD [address] [place] [address] Follow up Rheumatology Comment on above: Follow up Start: 08-13-2024 DIABETES SCREEN DIABETES SCREEN [facility] Start: 07-27-2024 End: 07-27-2024 Patient encounter procedure 07/27/2024 11:20 AM EST Office Visit Internal Medicine [facility] [address] [place] [address] Mattie Somers APRN.CUSTOM APPLICATOR [address] [place] [address] Follow up [facility] [place] Comment on above: Follow up Start: 07-05-2024 End: 07-05-2024 ambulatory 07/05/2024 2:30 PM EST [facility] Neurology [address] [place] [address] Eddie Wilson, HIGHWAY PAINTER.CUSTOM APPLICATOR [address] [place] [address] Medication increase Neurology Comment on above: Medication increase Start: 06-26-2024 End: 09-25-2024 25-hydroxyvitamin D3 [Mass/volume] in Serum or Plasma [facility] Comment on above: Expected: 06/26/2024, Expires: Start: 06-26-2024 End: 09-25-2024 Cobalamin (Vitamin B12) [Mass/volume] in Serum or Plasma [facility] Comment on above: Expected: 06/26/2024, Expires: Start: 06-26-2024 End: 09-25-2024 Hemoglobin A1c in Blood [facility] Work Phone: Comment on above: Expected: 06/26/2024, Expires: Start: 06-26-2024 End: 09-25-2024 Thyrotropin [Units/volume] in Serum or Plasma [facility] Comment on above: Expected: 06/26/2024, Expires: Start: 06-26-2024 End: 09-25-2024 Thyroxine (T4) free [Mass/volume] in Serum or Plasma [facility] Comment on above: Expected: 06/26/2024, Expires: Start: 06-26-2024 End: 09-25-2024 Triiodothyronine (T3) Free [Mass/volume] in Serum or Plasma [facility] Comment on above: Expected: 06/26/2024, Expires: Start: 06-26-2024 End: 06-26-2024 Patient encounter procedure 06/26/2024 11:00 AM EST Office Visit Internal Medicine [facility] [address] [place] [address] Mattie Somers APRN.CUSTOM APPLICATOR [address] [place] [address] 6 month follow up [facility] [place] Comment on above: 6 month follow up Start: 06-21-2024 End: 06-21-2024 Follow-up encounter 06/21/2024 2:20 PM EST [facility] Rheumatology [address] [place] [address] [place] [address] [place] [address] Virtual Follow up Rheumatology Comment on above: Virtual Follow up Start: 06-16-2024 Annual PCP Team Chronic Disease Visit Annual PCP Team Chronic Disease Visit [facility] Start: 06-16-2024 End: 06-16-2024 Patient encounter procedure 06/16/2024 1:20 PM EST Office Visit [facility] [address] [place] [address] Mattie Somers APRN.CUSTOM APPLICATOR [address] [place] [address] 6 month follow up [facility] [place] Comment on above: 6 month follow up Start: 05-31-2024 Medicare Advantage Annual Wellness Visit Medicare Advantage Annual Wellness Visit [facility] Start: 05-30-2024 End: 08-29-2024 Basic metabolic 2000 panel - Serum or Plasma BASIC METABOLIC PANEL Lab Routine Essential hypertension Expected: 05/30/2024, Expires: 08/29/2024 [facility] Work Phone: Comment on above: Expected: 05/30/2024, Expires: Start: 05-18-2024 End: 05-18-2024 Patient encounter procedure 05/18/2024 12:45 PM EST Appointment Radiology [address] [address] US HAND/WRIST SYNOVIAL SCREEN RT+LT Radiology Comment on above: US HAND/WRIST SYNOVIAL SCREEN RT+LT Start: 04-04-2024 End: 04-04-2024 Follow-up encounter 04/04/2024 1:45 PM EST [facility] Neurology [address] [place] [address] Eddie Wilson, HIGHWAY PAINTER.CUSTOM APPLICATOR [address] [place] [address] Follow up Neurology Comment on above: Follow up Start: 03-27-2024 End: 03-27-2025 Alanine aminotransferase [Enzymatic activity/volume] in Serum or Plasma [facility] Comment on above: Expected: 03/27/2024, Expires: Start: 03-27-2024 End: 03-27-2025 Aspartate aminotransferase [Enzymatic activity/volume] in Serum or Plasma [facility] Comment on above: Expected: 03/27/2024, Expires: Start: 03-27-2024 End: 03-27-2025 CREATININE BLD [facility] Work Phone: Comment on above: Expected: 03/27/2024, Expires: Start: 03-27-2024 End: 03-27-2024 Patient encounter procedure 03/27/2024 1:40 PM EDT Office Visit Rheumatology [address] [place] [address] [place] [address] [place] [address] follow up Rheumatology Comment on above: follow up Start: 03-16-2024 End: 03-16-2024 Follow-up encounter 03/16/2024 1:00 PM EDT [facility] Neurology [address] [place] [address] Eddie Wilson APRN.CUSTOM APPLICATOR [address] [place] [address] Follow up Neurology Comment on above: Follow up Start: 02-27-2024 Annual PCP Team Chronic Disease Visit Annual PCP Team Chronic Disease Visit [facility] Start: 02-27-2024 Shingrix Vaccine (1 of 2) Shingrix Vaccine (1 of 2) [facility] Comment on above: Postponed from 2015 (Declined at t his time) Start: 01-30-2024 Covid-19 Vaccine ( season) Covid-19 Vaccine ( season) [facility] Start: 01-30-2024 Covid-19 Vaccine ( season) Covid-19 Vaccine ( season) [facility] Start: 01-30-2024 Influenza vaccination Influenza Vaccine (#1) [facility] Start: 12-15-2023 End: 12-15-2023 Patient encounter procedure 12/15/2023 2:00 PM EDT Office Visit [facility] [place] [address] [place] [address] Mattie Somers APRN.CUSTOM APPLICATOR [address] [place] [address] 6 month follow up [facility] [place] Comment on above: 6 month follow up Start: 12-09-2023 Mammography [facility] Start: 12-09-2023 Screening for malignant neoplasm of breast Mammogram Screening [facility] Start: 11-30-2023 End: 02-29-2024 Hemoglobin A1c in Blood HEMOGLOBIN A1C Lab Routine Prediabetes Expected: 11/30/2023, Expires: 02/29/2024 [facility] Work Phone: Comment on above: Expected: 11/30/2023, Expires: Start: 11-30-2023 End: 02-29-2024 Lipid 1996 panel - Serum or Plasma LIPID PANEL BASIC Lab Routine Hyperlipidemia Expected: 11/30/2023, Expires: 02/29/2024 [facility] Comment on above: Expected: 11/30/2023, Expires: Start: 11-30-2023 End: 02-29-2024 Thyrotropin [Units/volume] in Serum or Plasma THYROID STIMULATING HORMONE Lab Routine Hypothyroidism Expected: 11/30/2023, Expires: 02/29/2024 [facility] Comment on above: Expected: 11/30/2023, Expires: Start: 11-08-2023 End: 11-08-2023 Patient encounter procedure 11/08/2023 2:00 PM EDT Office Visit Cardiology [address] [place] [id number] Felix Ornelas MD [address] [facility], [address] [place], [place] [id number] 1 year follow up rescheduled from 07/05/23 Cardiology Comment on above: 1 year follow up rescheduled from 07/05/23 Start: 10-27-2023 End: 10-27-2023 Patient encounter procedure 10/27/2023 3:00 PM EDT Appointment Radiology [address] [place] [address] MRI LUMBAR SPINE WO IVCON Radiology Comment on above: MRI LUMBAR SPINE WO IVCON Start: 08-26-2023 ANNUAL PCP TEAM CHRONIC DISEASE VISIT ANNUAL PCP TEAM CHRONIC DISEASE VISIT [facility] Start: 06-08-2023 BP CONTROLLED (<130/80) BP CONTROLLED (<130/80) [facility] in Start: 04-19-2023 End: 07-19-2023 25-hydroxyvitamin D3 [Mass/volume] in Serum or Plasma VITAMIN D 25 HYDROXY Lab Routine Vitamin D deficiency Expected: 04/19/2023, Expires: 07/19/2023 [facility] Work Phone: Comment on above: Expected: 04/19/2023, Expires: Start: 02-25-2023 ANNUAL PCP TEAM CHRONIC DISEASE VISIT ANNUAL PCP TEAM CHRONIC DISEASE VISIT [facility] Start: 02-19-2023 End: 10-08-2023 Alanine aminotransferase [Enzymatic activity/volume] in Serum or Plasma ALT/SGPT Lab Routine Inflammatory arthritis Encounter for long-term (current) use of NSAIDs Expected: 02/19/2023 (Approximate), Expires: 10/08/2023 [facility] Work Phone: Comment on above: Expected: 02/19/2023 (Approximate), Expi res: 10/08/2023 Start: 02-19-2023 End: 10-08-2023 Albumin [Mass/volume] in Serum or Plasma ALBUMIN BLD Lab Routine Inflammatory arthritis Encounter for long-term (current) use of NSAIDs Expected: 02/19/2023 (Approximate), Expires: 10/08/2023 [facility] Work Phone: Comment on above: Expected: 02/19/2023 (Approximate), Expi res: 10/08/2023 Start: 02-19-2023 End: 10-08-2023 Aspartate aminotransferase [Enzymatic activity/volume] in Serum or Plasma AST/SGOT BLD Lab Routine Inflammatory arthritis Encounter for long-term (current) use of NSAIDs Expected: 02/19/2023 (Approximate), Expires: 10/08/2023 [facility] Work Phone: Comment on above: Expected: 02/19/2023 (Approximate), Expi res: 10/08/2023 Start: 02-19-2023 End: 10-08-2023 CBC W Auto Differential panel - Blood CBC + DIFF Lab Routine Inflammatory arthritis Encounter for long-term (current) use of NSAIDs Expected: 02/19/2023 (Approximate), Expires: 10/08/2023 [facility] Work Phone: Comment on above: Expected: 02/19/2023 (Approximate), Expi res: 10/08/2023 Start: 02-19-2023 End: 10-08-2023 CREATININE BLD CREATININE BLD Lab Routine Inflammatory arthritis Encounter for long-term (current) use of NSAIDs Expected: 02/19/2023 (Approximate), Expires: 10/08/2023 [facility] Work Phone: Comment on above: Expected: 02/19/2023 (Approximate), Expi res: 10/08/2023 Start: 01-29-2023 Covid-19 Vaccine () Covid-19 Vaccine () [facility] Start: 01-29-2023 Influenza vaccination [facility] Start: 10-28-2022 Mammography MAMMOGRAM [facility] Start: 10-17-2022 End: 12-17-2022 Lipid 1996 panel - Serum or Plasma LIPID PANEL BASIC Lab Routine Hyperlipidemia, unspecified hyperlipidemia type Expected: 10/17/2022, Expires: 12/17/2022 [facility] Work Phone: Comment on above: Expected: 10/17/2022, Expires: Start: 08-26-2022 ANNUAL PCP TEAM CHRONIC DISEASE VISIT ANNUAL PCP TEAM CHRONIC DISEASE VISIT [facility] Start: 08-20-2022 End: 06-23-2023 Alanine aminotransferase [Enzymatic activity/volume] in Serum or Plasma ALT/SGPT Lab Routine Inflammatory arthritis Osteoarthritis of multiple joints, unspecified osteoarthritis type Long-term use of Plaquenil Expected: 08/20/2022 (Approximate), Expires: 06/23/2023 [facility] Work Phone: Comment on above: Expected: 08/20/2022 (Approximate), Expi res: 06/23/2023 Start: 08-20-2022 End: 06-23-2023 Albumin [Mass/volume] in Serum or Plasma ALBUMIN BLD Lab Routine Inflammatory arthritis Osteoarthritis of multiple joints, unspecified osteoarthritis type Long-term use of Plaquenil Expected: 08/20/2022 (Approximate), Expires: 06/23/2023 [facility] Work Phone: Comment on above: Expected: 08/20/2022 (Approximate), Expi res: 06/23/2023 Start: 08-20-2022 End: 06-23-2023 Aspartate aminotransferase [Enzymatic activity/volume] in Serum or Plasma AST/SGOT BLD Lab Routine Inflammatory arthritis Osteoarthritis of multiple joints, unspecified osteoarthritis type Long-term use of Plaquenil Expected: 08/20/2022 (Approximate), Expires: 06/23/2023 [facility] Work Phone: Comment on above: Expected: 08/20/2022 (Approximate), Expi res: 06/23/2023 Start: 08-20-2022 End: 06-23-2023 CBC W Auto Differential panel - Blood CBC + DIFF Lab Routine Inflammatory arthritis Osteoarthritis of multiple joints, unspecified osteoarthritis type Long-term use of Plaquenil Expected: 08/20/2022 (Approximate), Expires: 06/23/2023 [facility] Work Phone: Comment on above: Expected: 08/20/2022 (Approximate), Expi res: 06/23/2023 Start: 08-20-2022 End: 06-23-2023 CREATININE BLD CREATININE BLD Lab Routine Inflammatory arthritis Osteoarthritis of multiple joints, unspecified osteoarthritis type Long-term use of Plaquenil Expected: 08/20/2022 (Approximate), Expires: 06/23/2023 [facility] Work Phone: Comment on above: Expected: 08/20/2022 (Approximate), Expi res: 06/23/2023 Start: 08-11-2022 PAP TESTING PAP TESTING [facility] Start: 08-11-2022 Screening for malignant neoplasm of cervix Pap Testing [facility] Start: 05-01-2022 End: 05-15-2022 Influenza virus A and B RNA and SARS-CoV-2 (COVID-19) N gene panel - Respiratory specimen by LC with probe detection COVID WITH FLUA+B, ROUTINE Microbiology Routine Throat pain Expected: 05/01/2022, Expires: 05/15/2022 [facility] Work Phone: Comment on above: Expected: 05/01/2022, Expires: Start: 02-25-2022 End: 04-27-2022 Chronic hepatitis differentiation between hepatitis B and C virus panel - Serum or Plasma HEP REMOTE PANEL BL Lab Routine Long-term use of immunosuppressant medication Expected: 02/25/2022, Expires: 04/27/2022 [facility] Work Phone: Comment on above: Expected: 02/25/2022, Expires: 2 Start: 02-25-2022 End: 04-27-2022 Cyclic citrullinated peptide IgG Ab [Units/volume] in Serum or Plasma CCP ANTIBODY IGG Lab Routine Inflammatory arthritis Expected: 02/25/2022, Expires: 04/27/2022 [facility] Work Phone: Comment on above: Expected: 02/25/2022, Expires: 2 Start: 02-25-2022 End: 04-27-2022 HIV 1+2 Ab [Presence] in Serum or Plasma by Immunoassay HIV 1 2 COMBO(AG/AB),WITH REFLEX TO DIFFERENTIATION Lab Routine Screening for HIV (human immunodeficiency virus) Expected: 02/25/2022, Expires: 04/27/2022 [facility] Work Phone: Comment on above: Expected: 02/25/2022, Expires: 2 Start: 01-29-2022 Influenza vaccination INFLUENZA (#1) [facility] Start: 11-14-2021 Mammography MAMMOGRAM [facility] Start: 06-14-2021 COVID-19 VACCINE (4 - Booster for Pfizer series) COVID-19 VACCINE (4 - Booster for Pfizer series) [facility] Start: 05-09-2021 COVID-19 VACCINE (4 - Booster for Pfizer series) COVID-19 VACCINE (4 - Booster for Pfizer series) [facility] Start: 03-02-2021 Urine microalbumin profile [facility] Start: 08-11-2020 Screening for malignant neoplasm of cervix Cervical Cancer Screening [facility] Start: 08-11-2018 Screening for malignant neoplasm of cervix Cervical Cancer Screening [facility] Start: 2015 SHINGRIX VACCINE (1 of 2) SHINGRIX VACCINE (1 of 2) [facility] Start: 2010 COLOGUARD (FIT-DNA) COLOGUARD (FIT-DNA) [facility] Start: [address] COLONOGRAPHY [facility] Start: 2010 FECAL OCCULT BLOOD FECAL OCCULT BLOOD [facility] Start: 2010 Screening for malignant neoplasm of colon [facility] Start: 2010 SIGMOIDOSCOPY SIGMOIDOSCOPY [facility] Start: 04-14-2000 PNEUMOCOCCAL (2 - PCV) PNEUMOCOCCAL (2 - PCV) [facility] Start: 1984 Hepatitis B Vaccine (1 of 3 - 19+ 3-dose series) Hepatitis B Vaccine (1 of 3 - 19+ 3-dose series) [facility] Start: 1984 SHINGRIX VACCINE (1 of 2) SHINGRIX VACCINE (1 of 2) [facility] Start: 1983 Anxiety Screening Anxiety Screening [facility] Start: 1983 BP CONTROLLED (<130/80) BP CONTROLLED (<130/80) [facility] Start: 1983 HIV SCREENING HIV SCREENING [facility] Start: 1965 HEPATITIS B (1 of 3 - 3-dose series) HEPATITIS B (1 of 3 - 3-dose series) [facility] Start: 1965 Hepatitis B Vaccine (1 of 3 - 3-dose series) Hepatitis B Vaccine (1 of 3 - 3-dose series) [facility] End: 06-21-2025 Alanine aminotransferase [Enzymatic activity/volume] in Serum or Plasma ALANINE AMINOTRANSFERASE / SGPT Lab Routine Encounter for long-term (current) use of medications 7 Occurrences starting 06/21/2024 until 06/21/2025 [facility] Comment on above: 7 Occurrences starting 06/21/2024 until 06/21/2025 End: 06-21-2025 Aspartate aminotransferase [Enzymatic activity/volume] in Serum or Plasma ASPARTATE AMINOTRANSFERASE/SGOT Lab Routine Encounter for long-term (current) use of medications 7 Occurrences starting 06/21/2024 until 06/21/2025 [facility] Comment on above: 7 Occurrences starting 06/21/2024 until 06/21/2025 End: 06-21-2025 CBC panel - Blood by Automated count COMPLETE BLOOD COUNT Lab Routine Encounter for long-term (current) use of medications 7 Occurrences starting 06/21/2024 until 06/21/2025 [facility] Comment on above: 7 Occurrences starting 06/21/2024 until 06/21/2025 End: 06-21-2025 CREATININE BLD CREATININE BLD Lab Routine Encounter for long-term (current) use of medications 7 Occurrences starting 06/21/2024 until 06/21/2025 [facility] Work Phone: Comment on above: 7 Occurrences starting 06/21/2024 until 06/21/2025 CT Chest [facility] End: 01-18-2026 DBT Breast - bilateral screening JAZMYNE SCREENING W FACUNDO Radiology Routine Encounter for screening mammogram for breast cancer 1 Occurrences starting 12/19/2024 until 01/18/2026 [facility] Work Phone: Comment on above: 1 Occurrences starting 12/19/2024 until 01/18/2026 End: 07-14-2023 ECG COMPLETE ECG COMPLETE ECG Routine Essential hypertension Palpitations Hyperlipidemia, unspecified hyperlipidemia type 1 Occurrences starting 07/14/2022 until 07/14/2023 [facility] Work Phone: Comment on above: 1 Occurrences starting 07/14/2022 until 07/14/2023 ECG COMPLETE [facility] Work Phone: Comment on above: Ordered: 11/08/2023 End: 09-24-2023 JAZMYNE SCREENING W FACUNDO JAZMYNE SCREENING W FACUNDO Radiology Routine Breast cancer screening by mammogram 1 Occurrences starting 08/25/2022 until 09/24/2023 [facility] Work Phone: Comment on above: 1 Occurrences starting 08/25/2022 until 09/24/2023 Patient Education ED [facility] Work Phone: Patient referral [facility] Work Phone: End: 04-02-2023 US LEG VEIN DVT UNL VAS LAB US LEG VEIN DVT UNL VAS LAB Vascular Lab STAT Groin pain, right 1 Occurrences starting 04/02/2022 until 04/02/2023 [facility] Work Phone: Comment on above: 1 Occurrences starting 04/02/2022 until 04/02/2023 End: 04-27-2025 US Upper extremity - left US HAND/WRIST SYNOVIAL SCREEN LEFT Radiology Routine Pain in joint, multiple sites 1 Occurrences starting 03/27/2024 until 04/27/2025 [facility] Comment on above: 1 Occurrences starting 03/27/2024 until 04/27/2025 End: 04-27-2025 US Upper extremity - right US HAND/WRIST SYNOVIAL SCREEN RIGHT Radiology Routine Pain in joint, multiple sites 1 Occurrences starting 03/27/2024 until 04/27/2025 [facility] Comment on above: 1 Occurrences starting 03/27/2024 until 04/27/2025 [facility] Immunizations Immunization Date Immunization Notes Care Provider Fa [facility] 05-10-2024 influenza, injectabl e, madin anisha canine kidney, preservative free David Chicas MD Work Phone: [facility] 05-10-2024 influenza virus vaccine, unspecified formulation Darrell Jack MD Work Phone: [facility] 11-11-2023 hepatitis A vaccine, adult dosage Daivd Chicas MD Work Phone: [facility] 05-11-2023 hepatitis A vaccine, adult dosage David Chicas MD Work Phone: [facility] 05-11-2023 measles, mumps and rubella virus vaccine David Chicas MD Work Phone: [facility] 05-11-2023 tetanus toxoid, redu stanley diphtheria toxoid, and acellular pertussis vaccine, adsorbed David Chicas MD Work Phone: [facility] 04-26-2023 yellow fever vaccine David Chicas MD Work Phone: [facility] 02-26-2023 influenza, injectabl e, quadrivalent, contains preservative Mattie Somers [address] Work Phone: [facility] 02-26-2023 influenza virus vaccine, unspecified formulation David Chicas MD Work Phone: [facility] 07-07-2022 influenza virus vaccine, unspecified formulation David Chicas MD Work Phone: [facility] 02-25-2022 pneumococcal (PCV20) vaccine, 20 valent (PREVNAR 20) David Chicas MD Work Phone: [facility] Work Phone: 02-25-2022 pneumococcal Conjuga te, unspecified formulation David Chicas MD Work Phone: [facility] Work Phone: 03-14-2021 COVID-19 vaccine, ag e 12+ yr (PFIZER-BIONTECH - PURPLE TOP) David Chicas MD Work Phone: [facility] 02-25-2021 influenza, injectabl e, quadrivalent, contains preservative David Chicas MD Work Phone: [facility] Work Phone: 08-15-2020 COVID-19 vaccine, ag e 12+ yr (PFIZER-BIONTECH - PURPLE TOP) David Chicas MD Work Phone: [facility] Work Phone: 02-21-2020 influenza, injectabl e, quadrivalent, contains preservative David Chicas MD Work Phone: [facility] Work Phone: 03-13-2019 influenza virus vaccine, unspecified formulation David Chicas MD Work Phone: [facility] 02-25-2018 influenza, injectabl e, quadrivalent, preservative free David Chicas MD Work Phone: [facility] Work Phone: 04-05-2013 influenza virus vaccine, unspecified formulation David Chicas MD Work Phone: [facility] 04-15-2011 influenza virus vaccine, unspecified formulation David Chicas MD Work Phone: [facility] 03-02-2011 tetanus toxoid, redu stanley diphtheria toxoid, and acellular pertussis vaccine, adsorbed David Chicas MD Work Phone: [facility] 05-18-2005 influenza virus vaccine, unspecified formulation David Chicas MD Work Phone: [facility] 04-14-1999 pneumococcal polysaccharide vaccine, 23 valent David Chicas MD Work Phone: [facility] Work Phone: 05-06-1998 diphtheria and tetan us toxoids, adsorbed for pediatric use David Chicas MD Work Phone: [facility] Work Phone: NEGATED: Highlighted row has not occurred!02-25-2021 COVID-19 vaccine, age 12+ yr ([employer] - PURPLE TOP) David Chicas MD Work Phone: [facility] Work Phone: Payers Date Payer Category Payer Medicare (Managed Care) MMO [employer] PPO Member Subscriber Plan / Payer (Effective 2024-Present) Name: Berenice Givens Relation to Subscriber: Self Name: Berenice Givens Payer ID: Not on file Type: PPO Address: [place] [id number] 2024 Medicare [id number] 2024 Unknown [id number] 2024 Self-pay [id number] 2021 Private Health Insurance MMO SUPERMED PPO [id number] 2021 Unknown [id number] 2019 Unknown 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 2005 Unknown [id number] 1965 Unknown [id number] Unknown [id number] Unknown [id number] Unknown [id number] Unknown [id number] Unknown [id number] Unknown [id number] Unknown [id number] Unknown [id number] Unknown [id number] Social History Date Type Detail Facility Start: 07-21-2017 End: 10-13-2024 Tobacco smoking status NHIS Ex-smoker [facility] Comment on above: 2017 Start: 04-22-1989 End: 04-22-2009 History of tobacco use Current smoker [facility] Start: 04-22-1989 End: 04-22-2009 History of tobacco use Cigarette Smoker [facility] Start: 08-26-2021 End: 11-24-2024 Alcohol intake Current non-drinker of alcohol (finding) [facility] Start: 08-23-2021 End: 08-19-2022 History SDOH Alcohol Frequency 2 [facility] Start: 08-23-2021 History SDOH Alcohol Std Drinks 98 [facility] Start: 08-23-2021 End: 08-19-2022 History SDOH Alcohol Binge 1 [facility] Start: 08-23-2021 End: 08-19-2022 History SDOH Social Connections Phone 5 [facility] Start: 08-23-2021 End: 08-19-2022 History SDOH Social Connections Get Together 3 [facility] Start: 08-23-2021 History SDOH Physica l Activity MPS 6 [facility] Start: 11-13-2019 Education 12 [facility] Start: 1965 Sex Assigned At Not on file [facility] Start: 01-20-2021 End: 05-01-2022 Exposure to SARS-CoV-2 (event) Not sure [facility] Work Phone: Start: 07-21-2017 End: 10-08-2022 Cigarettes smoked current (pack per day) - Reported 0.5 [facility] Start: 07-21-2017 End: 04-01-2024 Tobacco use and exposure Smokeless tobacco non-user [facility] Work Phone: Start: 12-09-2021 End: 12-09-2022 Tobacco smoking status NHIS Unknown if ever smoked [facility] Start: 1965 Sex Assigned At Female W [facility] Start: 08-19-2022 History SDOH Alcohol Std Drinks 0 [facility] Start: 08-19-2022 End: 10-08-2022 Social connection and isolation panel [facility] Do you belong to any clubs or organizations such as pentecostal groups, [employer], [employer] or athlePayfirma groups, or school groups? No [facility] Start: 05-01-2012 Attends Club or Organization Meetings Not on file [facility] Are you now , , , , never or living with a partner? [facility] How often to you hav e a drink containing alcohol? Never [facility] Do you feel stress - tense, restless, nervous, or anxious, or unable to sleep at night because your mind is troubled all the time - these days [OSQ] To some extent [facility] (I/We) worried radha er (my/our) food would run out before (I/we) got money to buy more. Never true [facility] Do you belong to any clubs or organizations such as pentecostal groups, [employer], [employer] or athletic groups, or school groups? Yes [facility] How often to you hav e a drink containing alcohol? Monthly or less [facility] Do you feel stress - tense, restless, nervous, or anxious, or unable to sleep at night because your mind is troubled all the time - these days [OSQ] Only a little [facility] How many standard dr inks containing alcohol do you have on a typical day? 1 or 2 [facility] Sex Assigned At Sex [facility] Do you feel stress - tense, restless, nervous, or anxious, or unable to sleep at night because your mind is troubled all the time - these days [OSQ] Not at all [facility] Functional Status Date Assessment Result Facility 12-23-2024 Total score [AUDIT-C] 0 12/24/19 10:16 AM EDT Alfred Salinas [facility] 12-23-2024 How often to you hav e a drink containing alcohol? Never 12/23/2024 10:16 AM EDT UserAlfred Never [facility] 12-23-2024 Functional status Patient does n ot drink 12/23/2024 10:16 AM EDT User, Alfred Patient does not drink [facility] 12-23-2024 How often do you hav e 6 or more drinks on 1 occasion? Never 12/23/2024 10:16 AM EDT UserAlfred Never [facility] 12-18-2024 Total score [AUDIT-C] 0 12/19/19 11:07 AM EDT User, Ezt [facility] 12-18-2024 How often to you hav e a drink containing alcohol? Never 12/18/2024 11:07 AM EDT User, Ezt Never [facility] 12-18-2024 Functional status Patient does n ot drink 12/18/2024 11:07 AM EDT User, Alfred Patient does not drink [facility] 12-18-2024 How often do you hav e 6 or more drinks on 1 occasion? Never 12/18/2024 11:07 AM EDT UserAlfred Never [facility] 04-26-2024 Functional Status Independent [facility] 04-26-2024 Functional Status ID band on, Call device within reach, Bed in low position, Wheels locked, Upper/Half-Length side-rails up, Safety level maintained [facility] 07-16-2014 Are you deaf, or do you have serious difficulty hearing No 07/16/2014 3:24 PM Yunier Louise LPN No [facility] 07-16-2014 Are you blind, or do you have serious difficulty seeing, even when wearing glasses No 07/16/2014 3:24 PM Yunier Louise LPN No [facility] 07-16-2014 Do you have serious difficulty walking or climbing stairs No 07/16/2014 3:24 PM Yunier Louise LPN No [facility] 07-16-2014 Do you have difficul ty dressing or bathing No 07/16/2014 3:24 PM Yunier Louise LPN No [facility] 07-16-2014 Because of a physica l, mental, or emotional condition, do you have difficulty doing errands alone such as visiting a physician's office or shopping No 07/16/2014 3:24 PM Yunier Louise LPN No [facility] Mental Status Date Assessment Result Facility 04-26-2024 Mental Status Orientation Oriented x [address] [facility] 07-16-2014 Because of a physica l, mental, or emotional condition, do you have serious difficulty concentrating, remembering, or making decisions No 07/16/2014 3:24 PM Yunier Louise LPN No [facility] Clinical Notes 02-19-2021 to 03-26-2025 Telephone Encounter - Fatimah Sunshine LPN - 01/30/2025 3:34 PM EDTTelephone Encounter - Fatimah Sunshine LPN - 01/30/2025 3:34 PM EDTPatient Instructions Note Date & Type Note Facility 03-26-2025 Note HNO ID: [id number] Author: MATTIE SOMERS APRN.CUSTOM APPLICATOR Service: ? Author Type: Nurse Practitioner Type: Progress Notes Filed: 03/28/2025 13:27 Note Text: CC: Patient presents with: Recheck: 3 month follow up Immunizations: Flu vaccination HPI Berenice Givens is a 60 year old female who presents today for follow up. Recording using [employer] software for draft documentation of the visit was discussed with the patient/authorized patient representative; all questions welcomed and answered. Patient/authorized patient representative agreed to proceed Berenice Givens is a 60-year-old female with a history of anxiety, depression, obesity, and HTN, presenting with additional complaints of a single episode of chest pain. Obesity: - Weight decreased from 290 lbs in May to 266 lbs currently. - Drinks only water; denies caffeine intake. Has been on phentermine for weight loss. - Denies new supplements. - Last echocardiogram in 2020. - Last seen by child life assistant in October without concern. - Engages in exercise at [employer], using a bike-like machine due to hip problems. - Reports difficulty with prolonged walking. Chest Pain: - Single episode of sharp chest pain in the middle of the chest, lasting ~2 minutes, occurred while sitting and talking to neighbors. - Denies associated palpitations, headaches, dizziness, heartburn, nausea, diaphoresis, abdominal pain, or dysphagia. - Denies recurrence of chest pain during exercise or exertion. Goes to the gym multiple times a week without any exercise intolerance, chest pressure, or dyspnea with exertion. Tachycardia when first arrived at appointment with HR at 102 - Denies palpitations or skipped beats. - Monitors heart rate and blood pressure at home; reports normal readings. - Noted dyspnea at high elevations in [place], attributed to COVID lungs. Anxiety and Depression: - Well-controlled with Wellbutrin and sertraline. - Denies increased anxiety or contributing to elevated heart rate. - Denies thoughts of self-harm or harm to others. HTN: - Managed with losartan. - Monitors blood pressure at home; reports normal readings. 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 - Reports restful sleep with CPAP use but only sleeps 4-5 hours per night. - Wakes up at 0500, goes to bed at midnight. - Feels 6 hours of sleep is optimal. REVIEW OF SYSTEMS See HPI PAST MEDICAL HISTORY Diagnosis Date Abdominal pain, epigastric Cigarette smoker 06/27/2021 Depressive disorder, not elsewhere classified Diaphragmatic hernia without mention of obstruction or gangrene Lupus erythematosus Migraine, unspecified, with intractable migraine, so stated, without mention of status migrainosus Migraine Obstructive sleep apnea syndrome, severe with associated hypoxemia. patient declined to schedule follow up testing for CPAP Unspecified essential hypertension PAST SURGICAL HISTORY Procedure Laterality Date CHOLECYSTECTOMY 10/03 Cholecystectomy COLONOSCOPY FLX DX W/COLLJ SPEC WHEN PFRMD 12/10/2017 Colonoscopy ESOPHAGOGASTRODUODENOSCOPY TRANSORAL DIAGNOSTIC EGD ESOPHAGOGASTRODUODENOSCOPY TRANSORAL DIAGNOSTIC 12/10/2017 EGD PAST SURGICAL HISTORY OF trigger finger PAST SURGICAL HISTORY OF heel spur PAST SURGICAL HISTORY OF carpal tunnel PAST SURGICAL HISTORY OF 03/09/12 endovenous laser ablation of L great saphenous vein, small saphenous vein and vein of Giac[place]i ALLERGIES Lisinopril, Pravastatin, and Zithromax [Azithromycin] MEDICATIONS buPROPion XL (WELLBUTRIN XL) 150 mg 24 hr tablet Take 1 tablet by mouth once daily. sertraline (ZOLOFT) 100 mg tablet Take 1 tablet by mouth once daily. Forgot Rx when traveling, do not cancel [facility] Rx topiramate (TOPAMAX) 50 mg tablet Take 1 tablet by mouth daily at bedtime. mometasone (ELOCON) 0.1 % cream Apply 1 application to affected area once daily. lansoprazole (PREVACID) 30 mg capsule Take 1 capsule by mouth once daily. topiramate (TOPAMAX) 100 mg tablet Take 1 tablet by mouth every evening. ezetimibe (ZETIA) 10 mg tablet Take 1 tablet by mouth once daily. sulfaSALAzine (AZULFIDINE) 500 mg tablet TAKE 1 TABLET EVERY MORNING AND 2 TABLETS (1000 MG) EVERY EVENING metFORMIN ER (GLUCOPHAGE XR) 500 mg 24 hr tablet Take 1 tablet by mouth daily with breakfast. Forgot Rx when traveling, do not cancel [facility] Rx folic acid 1 mg tablet Take 2 tablets by mouth once daily. losartan (COZAAR) 100 mg tablet Take 1 tablet by mouth once daily. cholecalciferol (VITAMIN D3) 5,000 unit tab Take 1 tablet by mouth once daily. hydrOXYchloroQUINE (PLAQUENIL) 200 mg tablet Take 1 tablet by mouth two times a day. omega-3 acid ethyl esters (LOVAZA) 1 gram capsule TAKE 2 CAPSULES ONCE DAILY MV with Tat-Temsttel-Lrokns (CENTRUM SILVER) 0.4-300-250 mg-mcg-mcg tab Take 1 tablet by mouth once daily. FAMILY HISTORY Problem Relation Age of Onset Diabetes Mothe (more content not included)... [facility] 02-20-2025 Note HNO ID: [id number] Author: DARRELL JACK MD Service: ? Author Type: Physician Type: Progress Notes Filed: 02/20/2025 14:42 Note Text: On 02/20/2025, I had the pleasure of evaluating Berenice Givens in a follow-up [facility] Rheumatology appointment for inflammatory arthritis. This Team Access Model visit is a virtual encounter utilizing both video and audio components. It required patient-provider interaction for the medical decision making as documented below. My name and active licensure have been communicated. The patient's identity and physical location were verified at the time of this visit. Either the patient or their legal patient representative has been informed of the risks and benefits of -- and alternatives to -- treatment through a remote evaluation and consents to proceed with the evaluation remotely. HPI: To review, Berenice Givens is a 59 year old female (goes by Kate) - At age 23, noted onset of malar rash (which was incorrectly diagnosed and managed as acne x1 year), joint pain (including knees), photosensitivity and mouth sores. Diagnosed with SLE. Was initially treated with injections (she's guessing of steroids), which stopped as it got to be too much (would have 18 facial injections at a time) - In , started on HCQ with significant improvement in rash and joint pain - In November, reported pain in the R 2nd MCP, bilateral DIPs, hips, knees, ankles, low back and neck. Had injections of the spine, neck helped more than low back but low back injections helped a little. PT done in for tibialis tendinitis of both ankles without relief. Most concerning area of pain was the low back, ankles and hands. - In Jan, reported diclofenac PO which works a lot better for her than tylenol. Increased HCQ dose given US synovitis and pain in the bilateral wrists and MCPs, some in the PIPs - In May, reported some improvement with higher HCQ dose - In Feb, reported things were going well with the higher HCQ dose. Recently injured back after picking something up, on the mend. - In Feb, reported arthritis was ok. Some pain in the wrists/MCPs - Apr US with active synovitis - In May, reported continued pain in the wrists and MCPs. She thought she was to increase to HCQ 3 tabs/day so had been doing that without improvement. With blurry vision. Advised to decrease the HCQ dose back down. Started on SSZ goal 1g/day - In August, reported doing ok. Hadn't noticed any improvement in the joints. Increased to SSZ 1.5g/day. ALT/AST 40s. - In September, improved but slightly high LFTs. ALT 39, AST 43. SSZ dosing continued, unchanged - In Oct, reported taking SSZ 1.5g/day. The higher dose had made a difference, improved joints by 60% - Today, reports joints are doing ok. Remains on SSZ 1.5g/day. Wrists aren't as good as they had been - Last plaquenil eye exam normal in Oct PAST MEDICAL HISTORY Diagnosis Date Abdominal pain, epigastric Cigarette smoker 06/27/2021 Depressive disorder, not elsewhere classified Diaphragmatic hernia without mention of obstruction or gangrene Lupus erythematosus Migraine, unspecified, with intractable migraine, so stated, without mention of status migrainosus Migraine Obstructive sleep apnea syndrome, severe with associated hypoxemia. patient declined to schedule follow up testing for CPAP Unspecified essential hypertension GERD PAST SURGICAL HISTORY Procedure Laterality Date CHOLECYSTECTOMY 10/03 Cholecystectomy COLONOSCOPY FLX DX W/COLLJ SPEC WHEN PFRMD 12/10/2017 Colonoscopy ESOPHAGOGASTRODUODENOSCOPY TRANSORAL DIAGNOSTIC EGD ESOPHAGOGASTRODUODENOSCOPY TRANSORAL DIAGNOSTIC 12/10/2017 EGD PAST SURGICAL HISTORY OF trigger finger PAST SURGICAL HISTORY OF heel spur PAST SURGICAL HISTORY OF carpal tunnel PAST SURGICAL HISTORY OF 03/09/12 endovenous laser ablation of L great saphenous vein, small saphenous vein and vein of Giacomini ALLERGIES Allergen Reactions Lisinopril Intolerance sleepy Pravastatin Contraindication-Medical Surgical myositis Zithromax [Azithrom* Abdominal cramping MEDICATIONS: Current Outpatient Medications Medication Sig sulfaSALAzine (AZULFIDINE) 500 mg tablet TAKE 1 TABLET EVERY MORNING AND 2 TABLETS (1000 MG) EVERY EVENING metFORMIN ER (GLUCOPHAGE XR) 500 mg 24 hr tablet Take 1 tablet by mouth daily with breakfast. Forgot Rx when traveling, do not cancel [facility] Rx folic acid 1 mg tablet Take 2 tablets by mouth once daily. buPROPion XL (WELLBUTRIN XL) 150 mg 24 hr tablet Take 1 tablet by mouth once daily. Phentermine HCl 37.5 mg tablet Take 1 tablet by mouth once daily for 90 days. losartan (COZAAR) 100 mg tablet Take 1 tablet by mouth once daily. topiramate (TOPAMAX) 100 mg tablet Take 1 tablet by mouth every evening. levothyroxine (SYNTHROID) 100 mcg tablet Take 1 tablet by mouth daily before breakfast. lev (more content not included)... [facility] 02-12-2025 Radiology Diagnostic study note [facility] Imaging Services [address] [place] [address] Sacrum-Coccyx min 2 Views MR#: [id number] Acct: [id number] Name: BERENICE GIVENS Rep #: [id number] : 1965 F 59 From: Guillermo Nova MD PCP: Dr. David Chicas MD Status: REG C LINDA Study:Sacrum-Coccyx min 2 Views Date of Exam: 02/12/25 Exam# [id number] Ordering Dr: Robert Bowers MD PROCEDURE: SACRUM-COCCYX MIN 2 VIEWS 02/12/2025 REASON FOR EXAM: SACROILIAN PAIN TECHNIQUE: Procedure Code: RADSAC Modality: DX Procedure: SACRUM-COCCYX MIN 2 VIEWS COMPARISON: None FINDINGS: Bones: No fracture. Joints: Degenerative changes of the sacroiliac joints bilaterally worse on the left side. Degenerative changes of symphysis pubis. Other: Marked degree of disc space narrowing at the L4-L5 and L5-S1 levels. RAD/Sacrum-Coccyx min 2 Views IMPRESSION: Degenerative changes of the sacroiliac joints as well as the the lower lumbar spine. Reading Location: [place] [address] CC: Dr. Elvia Bowers MD; Dr. David Chicas MD ~ Corporate Quality Manager: Signed [facility] 01-30-2025 Telephone encounter Note Patient has been identified by name and date of : Yes Patient phones for refill(s): Requested Prescriptions Pending Prescriptions Disp Refills metFORMIN ER (GLUCOPHAGE XR) 500 mg 24 hr tablet 90 tablet 3 Sig: Take 1 tablet by mouth daily with breakfast. Forgot Rx when traveling, do not cancel [facility] Rx Date of last office visit in primary care: 12/25/2024 Date of next office visit in primary care: 01/30/2025 Please advise. Thank you. Fatimah Sunshine LPN. [facility] 01-30-2025 Miscellaneous Notes Patient has been identified by name and date of : Yes Patient phones for refill(s): Requested Prescriptions Pending Prescriptions Disp Refills metFORMIN ER (GLUCOPHAGE XR) 500 mg 24 hr tablet 90 tablet 3 Sig: Take 1 tablet by mouth daily with breakfast. Forgot Rx when traveling, do not cancel [facility] Date of last office visit in primary care: 12/25/2024 Date of next office visit in primary care: 01/30/2025 Please advise. Thank you. Fatimah Sunshine LPN. documented in this encounter [facility] 01-30-2025 Telephone encounter Note Patient has been identified by name and date of : Yes Patient phones for refill(s): Requested Prescriptions Pending Prescriptions Disp Refills folic acid 1 mg tablet 180 tablet 3 Sig: Take 2 tablets by mouth once daily. Date of last office visit in primary care: 12/25/2024 Date of next office visit in primary care: 03/26/2025 Please advise. Thank you. Fatimah Sunshine LPN. [facility] 01-30-2025 Miscellaneous Notes Patient has been identified by name and date of : Yes Patient phones for refill(s): Requested Prescriptions Pending Prescriptions Disp Refills folic acid 1 mg tablet 180 tablet 3 Sig: Take 2 tablets by mouth once daily. Date of last office visit in primary care: 12/25/2024 Date of next office visit in primary care: 03/26/2025 Please advise. Thank you. Fatimah Sunshine LPN. documented in this encounter [facility] 01-02-2025 Note HNO ID: [id number] Author: EDDIE WILSON APRN.CUSTOM APPLICATOR Service: ? Author Type: Nurse Practitioner Type: Progress Notes Filed: 01/02/2025 13:15 Note Text: [facility] Virtual Visit Follow up This visit was conducted as a virtual visit, with patient's permission, via zoom. It required patient-provider interaction for the medical decision making as documented below. Patient stated name and Patient location [place] I have communicated my name and active licensure. The patient's identity and physical location were verified at the time of this visit. Either the patient or their legal patient representative has been informed of the risks and benefits of -- and alternatives to -- treatment through a remote evaluation and consents to proceed with the evaluation remotely. January 02, 2025 Primary Problem List: ACTIVE PROBLEM LIST Discoid Lupus Erythematosus of Eyelid CHOLECYSTITIS SEE ALSO GALLBLADDER CHRONIC Hypothyroidism Lupus Erythematosus Primary Hypertension Depressive Disorder, Not Elsewhere Classified Abdominal Pain, Epigastric Acute Gastritis Without Mention of Hemorrhage Diaphragmatic Hernia Without Mention of Obstruction Or Gangrene Hyperglycemia Statin Myopathy Hyperlipidemia Morbid Obesity (Hcc) Prediabetes Encounter for Long-Term (Current) Use of Medications Encounter for Screening for Malignant Neoplasm of Colon Gastroesophageal Reflux Disease Tibialis Tendinitis of Both Lower Extremities Peroneal Tendinitis of Both Lower Legs Migraine Without Aura and Without Status Migrainosus, Not Intractable Whitney (Dyspnea On Exertion) Obstructive Sleep Apnea Syndrome Renal Colic Tobacco Dependence in Remission Obesity, Class III, BMI >= 40 Post-Covid Chronic Headache Preoperative Clearance Chief Complaint: headache Impression and Plan last visit: 07/05/2024 with me Berenice Givens is a 59 year old year old female, with a history of migraine, post COVID syndrome, tobacco use disorder, CHATO, HTN, hypothyroidism, depression, anxiety, GERD and lupus and shingles last Fall. Reports a significant reduction in migraine days with the increase in topamax. PLAN: Continue Topamax Interval Headache History: Berenice Givens is a 59-year-old female with a history of migraines and arthritis, presenting for follow-up. Migraines: - No migraines since the Topamax dosage was increased to 150mg - Reports only a few headaches, but no migraines. - Previously treated migraines with OTC medications; denies use of Imitrex or Relpax. - Tolerating Topamax well; stays hydrated and drinks only water. - Reports altered taste and smell since COVID-19 infection 5 years ago. Arthritis: - Symptoms improved with new medication, sulfasalazine, prescribed by laborer [employer] Dr. Jack. Analgesic Diclofenac (Voltaren, Cataflam, Cambia) Anti-Convulsant Topiramate (Topamax, Trokendi XL, Qudexy) Anti-Depressant and Antipsychotic Bupropion (Wellbutrin) Sertraline (Zoloft) Blood Pressure Amlodipine Lisinopril (Zestril) Losartan (Cozaar) Propranolol (Inderal) Other Medications Dexamethasone (Decadron) Over the Counter Medications Acetaminophen (Tylenol) Acetaminophen/Aspirin/Caffeine (Excedrin, Goody?s) Aspirin Ibuprofen (Advil, Motrin) Naproxen sodium (Aleve) Current Outpatient Medications Medication Sig buPROPion XL (WELLBUTRIN XL) 150 mg 24 hr tablet Take 1 tablet by mouth once daily. Phentermine HCl 37.5 mg tablet Take 1 tablet by mouth once daily for 90 days. sulfaSALAzine (AZULFIDINE) 500 mg tablet Take 500 mg every morning and 1000mg every evening losartan (COZAAR) 100 mg tablet Take 1 tablet by mouth once daily. topiramate (TOPAMAX) 100 mg tablet Take 1 tablet by mouth every evening. levothyroxine (SYNTHROID) 100 mcg tablet Take 1 tablet by mouth daily before breakfast. levothyroxine (SYNTHROID) 100 mcg tablet Take 1 tablet by mouth daily before breakfast. ezetimibe (ZETIA) 10 mg tablet Take 1 tablet by mouth once daily. cholecalciferol (VITAMIN D3) 5,000 unit tab Take 1 tablet by mouth once daily. sertraline (ZOLOFT) 100 mg tablet Take 1 tablet by mouth once daily. Forgot Rx when traveling, do not cancel [facility] Rx topiramate (TOPAMAX) 50 mg tablet Take 1 tablet by mouth daily at bedtime. lansoprazole (PREVACID) 30 mg capsule Take 1 capsule by mouth once daily. hydrOXYchloroQUINE (PLAQUENIL) 200 mg tablet Take 1 tablet by mouth two times a day. folic acid 1 mg tablet Take 2 tablets by mouth once daily. metFORMIN ER (GLUCOPHAGE XR) 500 mg 24 hr tablet Take 1 tablet by mouth daily with breakfast. Forgot Rx when traveling, do not cancel [facility] Rx mometasone (ELOCON) 0.1 % cream Apply 1 application to affected area once daily. omega-3 acid ethyl esters (LOVAZA) 1 gram capsule TAKE 2 CAPSULES ONCE DAILY MV with Wsa-Jygqihyg-Fzuuqw (CENTRUM SILVER) 0.4-300-25 (more content not included)... [facility] 12-25-2024 Instructions David Chicas MD - 12/25/2024 11:24 AM EDT We discussed your medications: - Continue taking Zetia and losartan as prescribed. - You are no longer taking Wellbutrin, so I will remove it from your medication list. - I prescribed phentermine with 2 refills. You can take this medication for up to a year, and we will follow up every 3 months to monitor your progress. - You mentioned experiencing a change in how spicy foods taste and increased sensitivity on the tip of your tongue since starting phentermine. This may be a side effect of the medication. Please let me know if this persists or worsens. We discussed your upcoming preventive care: - You mentioned that your mammogram and Pap test are typically done in [place] with Dr. Boles and that you believe you are due for these in February. Please confirm the timing and schedule these tests as needed. We discussed your oxygen use at night: - You have a home study scheduled to determine if you still need to use the oxygen concentrator at night. Please follow through with this study and let me know the results. Follow-up: - Please schedule a follow-up appointment with me in 3 months to monitor your progress with phentermine and your overall health. documented in this encounter [facility] 12-25-2024 Note HNO ID: [id number] Author: DAVID CHICAS MD Service: ? Author Type: Physician Type: Progress Notes Filed: 12/25/2024 13:09 Note Text: Reason for Visit Follow up phentermine HPI Berenice Givens is a 59-year-old female with a history of HTN and long COVID, presenting for follow-up. Berenice reports stable blood pressure and heart rate readings. She is currently under the care of Dr. Ross for long COVID management and has an upcoming home sleep study to determine the necessity of continued nocturnal oxygen use. Berenice expresses a strong desire to discontinue the oxygen concentrator, citing its noise as a significant sleep disturbance, keeping her awake for approximately 45 minutes each night. She has been using the concentrator for nearly 5 years, with the 5-year lolly approaching in March. She is currently taking Zetia and losartan, and has discontinued Wellbutrin. Berenice has been on phentermine for 3-4 months and reports a side effect of altered taste sensation, particularly with spicy foods, noting that mild sauces now feel excessively hot. She also experiences hot flashes. Berenice recently returned from a bus trip to [facility], which she enjoyed despite the heat. She is planning a trip to [place], [place], in February for a hot air balloon festival to celebrate her 60th birthday. Berenice is due for a mammogram and Pap test in February, with her last screenings performed in February of the previous year by Dr. Boles in [place], which were normal. Social History Tobacco Use Smoking status: Former Current packs/day: 0.00 Average packs/day: 0.5 packs/day for 20.0 years (10.0 ttl pk-yrs) Types: Cigarettes Start date: 04/22/1989 Quit date: 04/22/2009 Years since quittin.6 Smokeless tobacco: Never Vaping Use Vaping status: Never Used Substance Use Topics Alcohol use: No Drug use: No Past medical history, appointments, medications, allergies reviewed. Pertinent Lab/Diagnostic Studies are reviewed and discussed today Current Outpatient Medications: Phentermine HCl 37.5 mg tablet sulfaSALAzine (AZULFIDINE) 500 mg tablet losartan (COZAAR) 100 mg tablet topiramate (TOPAMAX) 100 mg tablet levothyroxine (SYNTHROID) 100 mcg tablet levothyroxine (SYNTHROID) 100 mcg tablet ezetimibe (ZETIA) 10 mg tablet cholecalciferol (VITAMIN D3) 5,000 unit tab sertraline (ZOLOFT) 100 mg tablet topiramate (TOPAMAX) 50 mg tablet lansoprazole (PREVACID) 30 mg capsule hydrOXYchloroQUINE (PLAQUENIL) 200 mg tablet folic acid 1 mg tablet metFORMIN ER (GLUCOPHAGE XR) 500 mg 24 hr tablet mometasone (ELOCON) 0.1 % cream omega-3 acid ethyl esters (LOVAZA) 1 gram capsule MV with Ijl-Gbnpfcbu-Anjwmc (CENTRUM SILVER) 0.4-300-250 mg-mcg-mcg tab Health Maintenance Anxiety Screening Shingrix Vaccine(1 of 2) Cervical Cancer Screening Medicare Advantage Annual Wellness Visit Mammogram Screening@ Review Of Systems Constitutional: (+ insomnia Ears/Nose/Mouth/Throat: (+ altered taste Endocrine: (+ hot flashes Physical Exam BP 138/78 Pulse 94 Resp 16 Wt 123.4 kg (272 lb) SpO2 97% BMI 41.36 kg/m? GENERAL: NAD, alert and oriented. SKIN: Unremarkable, no rash or skin lesions. HEAD: Normocephalic. EYES: PERRLA, EOMI, conjunctiva clear. EARS: External ears normal, canals clear, TM's normal. NOSE/SINUSES: Nares normal. Septum midline. OROPHARYNX: Lips, mucosa, and tongue normal, good dentition. No oral lesions noted. NECK: Supple, no lymphadenopathy, normal thyroid, no carotid bruits. LUNGS: Clear to auscultation bilaterally, no wheezes/rhonchi/rales. HEART: Regular rate and rhythm, no murmurs. No ectopy. EXTREMITIES: Normal, no deformities, no skin discoloration, no edema. NEURO: Awake, alert and oriented x3, cranial nerves II-XII grossly intact, normal gait, no involuntary motions. Labs: Imaging: (February) Mammogram: Normal Tests: (February) Pap test: Normal Assessment and Plan 1. Class 3 severe obesity with serious comorbidity and body mass index (BMI) of 40.0 to 44.9 in adult, unspecified obesity type (HCC) (E66.813) Currently on phentermine for weight management, experiencing altered taste sensation, particularly with spicy foods, likely a side effect of the medication. - Continue phentermine with 2 refills, to be taken for up to a year. - Schedule follow-up appointments every 3 months to monitor progress and side effects. 2. Essential (primary) hypertension (I10) Blood pressure is stable, managed with losartan. Continue losartan as prescribed. Voice recognition software was used to compose this office note. Please excuse any unintended typographical errors. Recording using ambient Tracky software for draft documentation of the visit was discussed with the patient/authorized patient representative; all questions welcomed and answered. Patient/authorized patient representative agreed to proceed David Chicas MD [facility] 12-25-2024 History of Present illness Narrative Reason for Visit Follow up phentermine HPI Berenice Givens is a 59-year-old female with a history of HTN and long COVID, presenting for follow-up. Berenice reports stable blood pressure and heart rate readings. She is currently under the care of Dr. Ross for long COVID management and has an upcoming home sleep study to determine the necessity of continued nocturnal oxygen use. Berenice expresses a strong desire to discontinue the oxygen concentrator, citing its noise as a significant sleep disturbance, keeping her awake for approximately 45 minutes each night. She has been using the concentrator for nearly 5 years, with the 5-year lolly approaching in March. She is currently taking Zetia and losartan, and has discontinued Wellbutrin. Berenice has been on phentermine for 3-4 months and reports a side effect of altered taste sensation, particularly with spicy foods, noting that mild sauces now feel excessively hot. She also experiences hot flashes. Berenice recently returned from a bus trip to [facility], which she enjoyed despite the heat. She is planning a trip to [place], [place], in February for a hot air balloon festival to celebrate her 60th birthday. Berenice is due for a mammogram and Pap test in February, with her last screenings performed in February of the previous year by Dr. Boles in [place], which were normal. Social History Tobacco Use Smoking status: Former Current packs/day: 0.00 Average packs/day: 0.5 packs/day for 20.0 years (10.0 ttl pk-yrs) Types: Cigarettes Start date: 04/22/1989 Quit date: 04/22/2009 Years since quittin.6 Smokeless tobacco: Never Vaping Use Vaping status: Never Used Substance Use Topics Alcohol use: No Drug use: No Past medical history, appointments, medications, allergies reviewed. Pertinent Lab/Diagnostic Studies are reviewed and discussed today Current Outpatient Medications: Phentermine HCl 37.5 mg tablet sulfaSALAzine (AZULFIDINE) 500 mg tablet losartan (COZAAR) 100 mg tablet topiramate (TOPAMAX) 100 mg tablet levothyroxine (SYNTHROID) 100 mcg tablet levothyroxine (SYNTHROID) 100 mcg tablet ezetimibe (ZETIA) 10 mg tablet cholecalciferol (VITAMIN D3) 5,000 unit tab sertraline (ZOLOFT) 100 mg tablet topiramate (TOPAMAX) 50 mg tablet lansoprazole (PREVACID) 30 mg capsule hydrOXYchloroQUINE (PLAQUENIL) 200 mg tablet folic acid 1 mg tablet metFORMIN ER (GLUCOPHAGE XR) 500 mg 24 hr tablet mometasone (ELOCON) 0.1 % cream omega-3 acid ethyl esters (LOVAZA) 1 gram capsule MV with Fxv-Tmihvnin-Cszdiw (CENTRUM SILVER) 0.4-300-250 mg-mcg-mcg tab Health Maintenance Anxiety Screening Shingrix Vaccine(1 of 2) Cervical Cancer Screening Medicare Advantage Annual Wellness Visit Mammogram Screening@ Review Of Systems Constitutional: (+ insomnia Ears/Nose/Mouth/Throat: (+ altered taste Endocrine: (+ hot flashes Physical Exam BP 138/78 Pulse 94 Resp 16 Wt 123.4 kg (272 lb) SpO2 97% BMI 41.36 kg/m GENERAL: NAD, alert and oriented. SKIN: Unremarkable, no rash or skin lesions. HEAD: Normocephalic. EYES: PERRLA, EOMI, conjunctiva clear. EARS: External ears normal, canals clear, TM's normal. NOSE/SINUSES: Nares normal. Septum midline. OROPHARYNX: Lips, mucosa, and tongue normal, good dentition. No oral lesions noted. NECK: Supple, no lymphadenopathy, normal thyroid, no carotid bruits. LUNGS: Clear to auscultation bilaterally, no wheezes/rhonchi/rales. HEART: Regular rate and rhythm, no murmurs. No ectopy. EXTREMITIES: Normal, no deformities, no skin discoloration, no edema. NEURO: Awake, alert and oriented x3, cranial nerves II-XII grossly intact, normal gait, no involuntary motions. Labs: Imaging: (February) Mammogram: Normal Tests: (February) Pap test: Normal Assessment and Plan 1. Class 3 severe obesity with serious comorbidity and body mass index (BMI) of 40.0 to 44.9 in adult, unspecified obesity type (HCC) (E66.813) Currently on phentermine for weight management, experiencing altered taste sensation, particularly with spicy foods, likely a side effect of the medication. - Continue phentermine with 2 refills, to be taken for up to a year. - Schedule follow-up appointments every 3 months to monitor progress and side effects. 2. Essential (primary) hypertension (I10) Blood pressure is stable, managed with losartan. Continue losartan as prescribed. Voice recognition software was used to compose this office note. Please excuse any unintended typographical errors. Recording using [employer] software for draft documentation of the visit was discussed with the patient/authorized patient representative; all questions welcomed and answered. Patient/authorized patient representative agreed to proceed David Chicas MD documented in this encounter [facility] 12-19-2024 Note Patient Outreach (IN TMWS) BERENICE GIVENS ([id number]) 1965 F Date Time Provider Department 12/19/24 DAVID CHICAS During your visit today, we recorded the following information about you: Allergies As of Date: 12/19/2024 Noted Allergy Reaction LISINOPRIL 06/04/2011 5 - Intolerance Comments: sleepy PRAVASTATIN 06/30/2013 15 - Contraindication-Medical Bear* Comments: myositis ZITHROMAX (AZITHROMYCIN) 01/19/2008 Comments: Abdominal cramping Date Reviewed: 11/24/2024 Reviewed by: Mattie Somers APRN.CUSTOM APPLICATOR - Fully Assessed Visit Diagnosis:Encounter for screening mammogram for breast cancer [Z12.31] Order(s):[facility] SCREENING [facility] FACUNDO [[id number]] Order #: [id number] FUTURE Prescriptions as of 01/19/2025 - buPROPion XL (WELLBUTRIN XL) 150 mg 24 hr tablet Take 1 tablet by mouth once daily. - Phentermine HCl 37.5 mg tablet Take 1 tablet by mouth once daily for 90 days. - sulfaSALAzine (AZULFIDINE) 500 mg tablet Take 500 mg every morning and 1000mg every evening - losartan (COZAAR) 100 mg tablet Take 1 tablet by mouth once daily. - topiramate (TOPAMAX) 100 mg tablet Take 1 tablet by mouth every evening. - levothyroxine (SYNTHROID) 100 mcg tablet Take 1 tablet by mouth daily before breakfast. - levothyroxine (SYNTHROID) 100 mcg tablet Take 1 tablet by mouth daily before breakfast. - ezetimibe (ZETIA) 10 mg tablet Take 1 tablet by mouth once daily. - cholecalciferol (VITAMIN D3) 5,000 unit tab Take 1 tablet by mouth once daily. - sertraline (ZOLOFT) 100 mg tablet Take 1 tablet by mouth once daily. Forgot Rx when traveling, do not cancel [facility] Rx - topiramate (TOPAMAX) 50 mg tablet Take 1 tablet by mouth daily at bedtime. - lansoprazole (PREVACID) 30 mg capsule Take 1 capsule by mouth once daily. - hydrOXYchloroQUINE (PLAQUENIL) 200 mg tablet Take 1 tablet by mouth two times a day. - folic acid 1 mg tablet Take 2 tablets by mouth once daily. - metFORMIN ER (GLUCOPHAGE XR) 500 mg 24 hr tablet Take 1 tablet by mouth daily with breakfast. Forgot Rx when traveling, do not cancel [facility] Rx - mometasone (ELOCON) 0.1 % cream Apply 1 application to affected area once daily. - omega-3 acid ethyl esters (LOVAZA) 1 gram capsule TAKE 2 CAPSULES ONCE DAILY - MV with Hlv-Rkclmwql-Qwzczi (CENTRUM SILVER) 0.4-300-250 mg-mcg-mcg tab Take 1 tablet by mouth once daily. Problem List As Of Date 12/19/2024 Noted Resolved DISC LUP ERYTHEMATOS LID [H01.129] 05/18/2005 CHOLECYSTITIS SEE ALSO GALLBLADDER CHRONIC [K*10/12/2005 Hypothyroidism [E03.9] 11/06/2005 Lupus erythematosus [L93.0] 11/06/2005 Primary hypertension [I10] DEPRESSIVE DISORDER NEC [F32.89] ABDOMINAL PAIN EPIGASTRIC [R10.13] ACUTE GASTRITIS W/O HEMORRHAGE [K29.00] 11/13/2008 DIAPHRAGMATIC HERNIA [K44.9] 11/13/2008 Hyperglycemia [R73.9] 06/04/2011 Statin myopathy [G72.0, T46.6X5A] 07/11/2013 Hyperlipidemia [E78.5] 07/13/2013 Morbid obesity (HCC) [E66.01] 09/16/2016 Prediabetes [R73.03] 09/16/2016 Encounter for long-term (current) use of medica*11/22/2017 Encounter for screening for malignant neoplasm *11/22/2017 Gastroesophageal reflux disease [K21.9] 11/22/2017 Tibialis tendinitis of both lower extremities [*06/27/2018 Peroneal tendinitis of both lower legs [M76.71,*06/27/2018 Migraine without aura and without status migrai*05/28/2021 Cigarette smoker [F17.210] 06/27/2021 08/26/2021 WHITNEY (dyspnea on exertion) [R06.09] 06/27/2021 Obstructive sleep apnea syndrome [G47.33] 06/27/2021 Renal colic [N23] 06/27/2021 Tobacco dependence in remission [F17.201] 06/27/2021 Obesity, Class III, BMI >= 40 [E66.813] 06/27/2021 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 Author Type: Nurse Practitioner Type: Progress Notes Filed: 11/24/2024 14:30 Note Text: CC: Patient presents with: Recheck: 4 week follow up weight HPI Berenice Givens is a 59 year old female who presents today for above. Currently taking phentermine. Starting Month 2 Weight/BMI Last 1 Encounter Wt Readings: Date: Wt: 11/24/2024 125.2 kg (276 lb) BMI 41.97 kg/(m2) Last visit Wt: 125.2 kg (276 lb) BMI: 41.97 kg/(m2) DIET Daily serving of fruits:1-2 Daily serving of vegetables:1-2 Daily serving of protein:1-2 Fluid intake:Water: 7 glasses per day Do you Skip meals:YES Which meals do you tend to skip? Lunch Food Behaviors: denies Eating away from home:YES Sit down restaurantOnce weekly or less often Exercise routine: YES walking daily most of the time Medication side effects: Increased heart rate: sometimes, 1-2 episodes a week, does not last long, saw cardiology Wednesday Insomnia: Yes, Patient stats getting roughly 5.5 hours of sleep while on phentermine, states getting 6.5-7 hours prior. States somewhat restful with CPAP machine. Constipation: sometimes, states occasionally goes 2 days without BM Nervousness: No Impairment of concentration/attention, difficulty with memory, speech or language problems (particularly word-finding difficulties): No ROS as above, otherwise non-contributory. Reviewed PMHx, PSHx, social Hx, medications and allergies. PHYSICAL EXAM BP 130/78 Pulse 80 Resp 16 Wt 125.2 kg (276 lb) SpO2 97% BMI 41.97 kg/m? General Appearance: well appearing, in no acute distress, alert Lungs: Lungs clear to auscultation. No wheezing, rhonchi, rales. Heart: RRR without murmur, gallop, or rubs. No ectopy Abdomen: Abdomen soft, non-tender. Bowel sounds normal. No masses, organomegaly ASSESSMENT/PLAN: 1. Insomnia, unspecified type - ICD9: 780.52, ICD10: G47.00 (primary diagnosis) Uncomplicated Side effect of phentermine but is mild and has had this issue in the past getting 5.5-6 hrs of sleep a night Patient states will be taking marijuana gummy to aid with sleep as she has done in the past with this problem and will update with how she is doing. 2. Class 3 severe obesity with serious comorbidity and body mass index (BMI) of 40.0 to 44.9 in adult, unspecified obesity type (HCC) - ICD9: 278.01, V85.41, ICD10: E66.813, Z68.41 Weight decreasing - Pharmacological intervention - Eat foods high in low fat protein, fruits and vegetables. Continue exercising by walking daily and add body weight exercises - Continue current medications - PHENTERMINE 37.5 MG TABLET Discussed Contraindications, went over each one and over side effects. tolerance, continuity of medication, controlled medication so cannot be replaced if stolen or if lost. Advised exercising along with this will really help the patient reach her goal of loosing weight. Short term use of this med was discussed. Negative for all the following :Hypersensitivity or idiosyncrasy to phentermine or other sympathomimetic amines or any component of the formulation; history of cardiovascular disease (arrhythmias, congestive heart failure, coronary artery disease, stroke, uncontrolled hypertension); hyperthyroidism, glaucoma, agitated states, history of drug abuse; use during or within 14 days following MAO inhibitor therapy; , breast-feeding. PDMP website checked and validated. All prescriptions have been APPROPRIATELY filled. No suspicious activity was identified. 11/24/2024 by Mattie Somers APRN.ELDER 3. Weight loss counseling, encounter for - ICD9: V65.3, ICD10: Z71.3 As above Prescription instructions reviewed with patient as applicable. Potential red flag symptoms discussed with the patient. Reviewed appropriate action plan to take if red flag symptoms occur. Patient agreeable to treatment plan. Mattie Somers APRN.CNP [facility] 11-24-2024 History of Present illness Narrative CC: Patient presents with: Recheck: 4 week follow up weight HPI Berenice Givens is a 59 year old female who presents today for above. Currently taking phentermine. Starting Month 2 Weight/BMI Last 1 Encounter Wt Readings: Date: Wt: 11/24/2024 125.2 kg (276 lb) BMI 41.97 kg/(m^2) Last visit Wt: 125.2 kg (276 lb) BMI: 41.97 kg/(m^2) DIET Daily serving of fruits:1-2 Daily serving of vegetables:1-2 Daily serving of protein:1-2 Fluid intake:Water: 7 glasses per day Do you Skip meals:YES Which meals do you tend to skip? Lunch Food Behaviors: denies Eating away from home:YES Sit down restaurantOnce weekly or less often Exercise routine: YES walking daily most of the time Medication side effects: Increased heart rate: sometimes, 1-2 episodes a week, does not last long, saw cardiology Wednesday Insomnia: Yes, Patient stats getting roughly 5.5 hours of sleep while on phentermine, states getting 6.5-7 hours prior. States somewhat restful with CPAP machine. Constipation: sometimes, states occasionally goes 2 days without BM Nervousness: No Impairment of concentration/attention, difficulty with memory, speech or language problems (particularly word-finding difficulties): No ROS as above, otherwise non-contributory. Reviewed PMHx, PSHx, social Hx, medications and allergies. PHYSICAL EXAM BP 130/78 Pulse 80 Resp 16 Wt 125.2 kg (276 lb) SpO2 97% BMI 41.97 kg/m General Appearance: well appearing, in no acute distress, alert Lungs: Lungs clear to auscultation. No wheezing, rhonchi, rales. Heart: RRR without murmur, gallop, or rubs. No ectopy Abdomen: Abdomen soft, non-tender. Bowel sounds normal. No masses, organomegaly ASSESSMENT/PLAN: 1. Insomnia, unspecified type - ICD9: 780.52, ICD10: G47.00 (primary diagnosis) Uncomplicated Side effect of phentermine but is mild and has had this issue in the past getting 5.5-6 hrs of sleep a night Patient states will be taking marijuana gummy to aid with sleep as she has done in the past with this problem and will update with how she is doing. 2. Class 3 severe obesity with serious comorbidity and body mass index (BMI) of 40.0 to 44.9 in adult, unspecified obesity type (HCC) - ICD9: 278.01, V85.41, ICD10: E66.813, Z68.41 Weight decreasing - Pharmacological intervention - Eat foods high in low fat protein, fruits and vegetables. Continue exercising by walking daily and add body weight exercises - Continue current medications - PHENTERMINE 37.5 MG TABLET Discussed Contraindications, went over each one and over side effects. tolerance, continuity of medication, controlled medication so cannot be replaced if stolen or if lost. Advised exercising along with this will really help the patient reach her goal of loosing weight. Short term use of this med was discussed. Negative for all the following :Hypersensitivity or idiosyncrasy to phentermine or other sympathomimetic amines or any component of the formulation; history of cardiovascular disease (arrhythmias, congestive heart failure, coronary artery disease, stroke, uncontrolled hypertension); hyperthyroidism, glaucoma, agitated states, history of drug abuse; use during or within 14 days following MAO inhibitor therapy; , breast-feeding. PDMP website checked and validated. All prescriptions have been APPROPRIATELY filled. No suspicious activity was identified. 11/24/2024 by Mattie Somers APRN.CNP 3. Weight loss counseling, encounter for - ICD9: V65.3, ICD10: Z71.3 As above Prescription instructions reviewed with patient as applicable. Potential red flag symptoms discussed with the patient. Reviewed appropriate action plan to take if red flag symptoms occur. Patient agreeable to treatment plan. Mattie Somers APRN.CNP documented in this encounter [facility] 11-21-2024 Note HNO ID: [id number] Author: DARRELL JACK MD Service: ? Author Type: Physician Type: Progress Notes Filed: 11/21/2024 14:46 Note Text: On 11/21/2024, I had the pleasure of evaluating Berenice Givens in a follow-up [facility] Rheumatology appointment for inflammatory arthritis. This Team Access Model visit is a virtual encounter utilizing both video and audio components. It required patient-provider interaction for the medical decision making as documented below. My name and active licensure have been communicated. The patient's identity and physical location were verified at the time of this visit. Either the patient or their legal patient representative has been informed of the risks and benefits of -- and alternatives to -- treatment through a remote evaluation and consents to proceed with the evaluation remotely. HPI: To review, Berenice Givens is a 59 year old female (goes by Kate) - At age 23, noted onset of malar rash (which was incorrectly diagnosed and managed as acne x1 year), joint pain (including knees), photosensitivity and mouth sores. Diagnosed with SLE. Was initially treated with injections (she's guessing of steroids), which stopped as it got to be too much (would have 18 facial injections at a time) - In , started on HCQ with significant improvement in rash and joint pain - In November, reported pain in the R 2nd MCP, bilateral DIPs, hips, knees, ankles, low back and neck. Had injections of the spine, neck helped more than low back but low back injections helped a little. PT done in for tibialis tendinitis of both ankles without relief. Most concerning area of pain was the low back, ankles and hands. - In Jan, reported diclofenac PO which works a lot better for her than tylenol. Increased HCQ dose given US synovitis and pain in the bilateral wrists and MCPs, some in the PIPs - In May, reported some improvement with higher HCQ dose - In Feb, reported things were going well with the higher HCQ dose. Recently injured back after picking something up, on the mend. - In Feb, reported arthritis was ok. Some pain in the wrists/MCPs - Apr US with active synovitis - In May, reported continued pain in the wrists and MCPs. She thought she was to increase to HCQ 3 tabs/day so had been doing that without improvement. With blurry vision. Advised to decrease the HCQ dose back down. Started on SSZ goal 1g/day - In August, reported doing ok. Hadn't noticed any improvement in the joints. Increased to SSZ 1.5g/day. ALT/AST 40s. - In September, improved but slightly high LFTs. ALT 39, AST 43. SSZ dosing continued, unchanged - Today, reports taking SSZ 1.5g/day. The higher dose has made a difference, improved joints by 60% - Last plaquenil eye exam normal in Oct PAST MEDICAL HISTORY Diagnosis Date Abdominal pain, epigastric Cigarette smoker 06/27/2021 Depressive disorder, not elsewhere classified Diaphragmatic hernia without mention of obstruction or gangrene Lupus erythematosus Migraine, unspecified, with intractable migraine, so stated, without mention of status migrainosus Migraine Obstructive sleep apnea syndrome, severe with associated hypoxemia. patient declined to schedule follow up testing for CPAP Unspecified essential hypertension GERD PAST SURGICAL HISTORY Procedure Laterality Date CHOLECYSTECTOMY 10/03 Cholecystectomy COLONOSCOPY FLX DX W/COLLJ SPEC WHEN PFRMD 12/10/2017 Colonoscopy ESOPHAGOGASTRODUODENOSCOPY TRANSORAL DIAGNOSTIC EGD ESOPHAGOGASTRODUODENOSCOPY TRANSORAL DIAGNOSTIC 12/10/2017 EGD PAST SURGICAL HISTORY OF trigger finger PAST SURGICAL HISTORY OF heel spur PAST SURGICAL HISTORY OF carpal tunnel PAST SURGICAL HISTORY OF 03/09/12 endovenous laser ablation of L great saphenous vein, small saphenous vein and vein of Giacomini ALLERGIES Allergen Reactions Lisinopril Intolerance sleepy Pravastatin Contraindication-Medical Surgical myositis Zithromax [Azithrom* Abdominal cramping MEDICATIONS: Current Outpatient Medications Medication Sig sulfaSALAzine (AZULFIDINE) 500 mg tablet Take 500 mg every morning and 1000mg every evening Phentermine HCl 37.5 mg tablet Take 1 tablet by mouth once daily for 30 days. diclofenac, EC, (VOLTAREN) 75 mg EC tablet Take 1 tablet by mouth two times a day. doxycycline monohydrate (MONODOX) 100 mg capsule Take 1 capsule by mouth two times a day. losartan (COZAAR) 100 mg tablet Take 1 tablet by mouth once daily. buPROPion XL (WELLBUTRIN XL) 150 mg 24 hr tablet Take 1 tablet by mouth once daily. topiramate (TOPAMAX) 100 mg tablet Take 1 tablet by mouth every evening. levothyroxine (SYNTHROID) 100 mcg tablet Take 1 tablet by mouth daily before breakfast. levothyroxine (SYNTHROID) 100 mcg tablet Take 1 tablet by mouth daily before breakfast. ezetimibe (ZETIA) 10 mg tablet Take 1 tablet by mouth once daily. choleca (more content not included)... [facility] 11-21-2024 History of Present illness Narrative On 11/21/2024, I had the pleasure of evaluating Berenice Givens in a follow-up [facility] Rheumatology appointment for inflammatory arthritis. This Team Access Model visit is a virtual encounter utilizing both video and audio components. It required patient-provider interaction for the medical decision making as documented below. My name and active licensure have been communicated. The patient's identity and physical location were verified at the time of this visit. Either the patient or their legal patient representative has been informed of the risks and benefits of -- and alternatives to -- treatment through a remote evaluation and consents to proceed with the evaluation remotely. HPI: To review, Berenice Givens is a 59 year old female (goes by Kate) - At age 23, noted onset of malar rash (which was incorrectly diagnosed and managed as acne x1 year), joint pain (including knees), photosensitivity and mouth sores. Diagnosed with SLE. Was initially treated with injections (she's guessing of steroids), which stopped as it got to be too much (would have 18 facial injections at a time) - In , started on HCQ with significant improvement in rash and joint pain - In November, reported pain in the R 2nd MCP, bilateral DIPs, hips, knees, ankles, low back and neck. Had injections of the spine, neck helped more than low back but low back injections helped a little. PT done in for tibialis tendinitis of both ankles without relief. Most concerning area of pain was the low back, ankles and hands. - In Jan, reported diclofenac PO which works a lot better for her than tylenol. Increased HCQ dose given US synovitis and pain in the bilateral wrists and MCPs, some in the PIPs - In May, reported some improvement with higher HCQ dose - In Feb, reported things were going well with the higher HCQ dose. Recently injured back after picking something up, on the mend. - In Feb, reported arthritis was ok. Some pain in the wrists/MCPs - Apr US with active synovitis - In May, reported continued pain in the wrists and MCPs. She thought she was to increase to HCQ 3 tabs/day so had been doing that without improvement. With blurry vision. Advised to decrease the HCQ dose back down. Started on SSZ goal 1g/day - In August, reported doing ok. Hadn't noticed any improvement in the joints. Increased to SSZ 1.5g/day. ALT/AST 40s. - In September, improved but slightly high LFTs. ALT 39, AST 43. SSZ dosing continued, unchanged - Today, reports taking SSZ 1.5g/day. The higher dose has made a difference, improved joints by 60% - Last plaquenil eye exam normal in Oct PAST MEDICAL HISTORY Diagnosis Date Abdominal pain, epigastric Cigarette smoker 06/27/2021 Depressive disorder, not elsewhere classified Diaphragmatic hernia without mention of obstruction or gangrene Lupus erythematosus Migraine, unspecified, with intractable migraine, so stated, without mention of status migrainosus Migraine Obstructive sleep apnea syndrome, severe with associated hypoxemia. patient declined to schedule follow up testing for CPAP Unspecified essential hypertension GERD PAST SURGICAL HISTORY Procedure Laterality Date CHOLECYSTECTOMY 10/03 Cholecystectomy COLONOSCOPY FLX DX W/COLLJ SPEC WHEN PFRMD 12/10/2017 Colonoscopy ESOPHAGOGASTRODUODENOSCOPY TRANSORAL DIAGNOSTIC EGD ESOPHAGOGASTRODUODENOSCOPY TRANSORAL DIAGNOSTIC 12/10/2017 EGD PAST SURGICAL HISTORY OF trigger finger PAST SURGICAL HISTORY OF heel spur PAST SURGICAL HISTORY OF carpal tunnel PAST SURGICAL HISTORY OF 03/09/12 endovenous laser ablation of L great saphenous vein, small saphenous vein and vein of Giacomin[place] ALLERGIES Allergen Reactions Lisinopril Intolerance sleepy Pravastatin Contraindication-Medical Surgical myositis Zithromax [Azithrom* Abdominal cramping MEDICATIONS: Current Outpatient Medications Medication Sig sulfaSALAzine (AZULFIDINE) 500 mg tablet Take 500 mg every morning and 1000mg every evening Phentermine HCl 37.5 mg tablet Take 1 tablet by mouth once daily for 30 days. diclofenac, EC, (VOLTAREN) 75 mg EC tablet Take 1 tablet by mouth two times a day. doxycycline monohydrate (MONODOX) 100 mg capsule Take 1 capsule by mouth two times a day. losartan (COZAAR) 100 mg tablet Take 1 tablet by mouth once daily. buPROPion XL (WELLBUTRIN XL) 150 mg 24 hr tablet Take 1 tablet by mouth once daily. topiramate (TOPAMAX) 100 mg tablet Take 1 tablet by mouth every evening. levothyroxine (SYNTHROID) 100 mcg tablet Take 1 tablet by mouth daily before breakfast. levothyroxine (SYNTHROID) 100 mcg tablet Take 1 tablet by mouth daily before breakfast. ezetimibe (ZETIA) 10 mg tablet Take 1 tablet by mouth once daily. cholecalciferol (VITAMIN D3) 5,000 unit tab Take 1 tablet by mouth once daily. sertraline (ZOLOFT) 100 mg tablet Take 1 tablet by mouth once daily. Forgot Rx when traveling, do not cancel [facility] Rx topiramate (TOPAMAX) 50 mg tablet Take 1 tablet by mouth daily at bedtime. lansoprazole (PREVACID) 30 mg capsule Take 1 capsule by mouth once daily. hydrOXYchloroQUINE (PLAQUENIL) 200 mg tablet Take 1 tablet by mouth two times a day. folic acid 1 mg tablet Take 2 tablets by mouth once daily. metFORMIN ER (GLUCOPHAGE XR) 500 mg 24 hr tablet Take 1 tablet by mouth daily with breakfast. Forgot Rx when traveling, do not cancel [facility] Rx mometasone (ELOCON) 0.1 % cream Apply 1 application to affected area once daily. omega-3 acid ethyl esters (LOVAZA) 1 gram capsule TAKE 2 CAPSULES ONCE DAILY MV with Alk-Dayokqbm-Grbexd (CENTRUM SILVER) 0.4-300-250 mg-mcg-mcg tab Take 1 tablet by mouth once daily. No current facility-administered medications for this visit. FAMILY HISTORY Problem Relation Age of Onset Diabetes Mother Alzheimer's Disease Mother other (Polycythmeia vera) Father Breast Cancer Sister bilateral mastectomy other (HOCM with myocardial bridge) Sister Alzheimer's Disease Maternal Grandmother Heart Maternal Grandfather Cancer Paternal Grandfather Lung Alzheimer's Disease Maternal Aunt Alzheimer's Disease Maternal Uncle Alzheimer's Disease Maternal Uncle SOCIAL HISTORY: Lives in [place] with spouse. 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 Tobacco use: None Alcohol use: None Drug use: None *November Widespread Pain Index: 4 (0-19) Symptoms Severity Scale: 7 (0-12) WPI>7 and SS Scale>5 OR WPI 3-6 and SS Scale >9 consistent with fibromyalgia LABORATORY: Latest Ref Rng 10/19/2024 WBC 3.70 - 11.00 k/uL 10.26 RBC 3.90 - 5.20 m/uL 4.17 Hemoglobin 11.5 - 15.5 g/dL 12.8 Platelet Count 150 - 400 k/uL 241 MPV 9.0 - 12.7 fL 9.0 Absolute nRBC <0.01 k/uL <0.01 Creatinine 0.58 - 0.96 mg/dL 0.75 eGFR >=60 mL/min/1.73m 92 ALT 7 - 38 U/L 39 (H) AST 13 - 35 U/L 43 (H) Component Latest Ref Rng & Units 12/23/2021 Protein, Urine Random 0 - 20 mg/dL 8 Creatinine, Ur Random (UCRR) 20.0 - 300.0 mg/dL 105.4 Protein/Creat Ratio <0.2 0.1 Sm Antibody Negative Negative Anti-Sm <1.0 AI 0.2 CEMENT RUBBER Antibody QUAL Negative Negative Anti-CEMENT RUBBER <1.0 AI 0.9 SSA Antibody Qual Negative Negative Anti-SSA <1.0 AI <0.2 Anti-SSB <1.0 AI <0.2 SSB Antibody Qual Negative Negative CENTROMERE AB QUAL Negative Negative Centromere Ab <1.0 AI <0.2 Scleroderma Ab Qual Negative Negative Scl-70 Abs, EIA <1.0 AI <0.2 ROSEANNE 1 ANTIBODY QUAL Negative Negative Roseanne 1 Antibody <1.0 AI <0.2 Ribosomal CEMENT RUBBER Qualitative Negative Negative Ribosomal CEMENT RUBBER Ab <1.0 AI <0.2 Chromatin Ab Qual Negative Negative Chromatin Ab <1.0 AI <0.2 MARCUS Negative Negative DNA Antibody w/Confirmation <30 IU/mL 22.27 C3 86 - 166 mg/dL 177 (H) C4 13 - 46 mg/dL 28 CRP <0.9 mg/dL 1.1 (H) WSR 0 - 20 mm/hr 30 (H) Rheumatoid Factor <16 IU/mL <10 Hemoglobin/Blood,Ur Negative Negative Component Latest Ref Rng & Units 02/26/2022 CCP Antibody IgG Qualitative Negative Negative CCP Antibody, IgG <20 Units <15 Component Latest Ref Rng & Units 07/16/2014 02/19/2021 05/09/2021 08/13/2021 MARCUS NEGAT Negative MARCUS Titer NEGAT Negative MARCUS Pattern Not applicable for negative result. CCP Antibody, IgG <20 Units <15 Rheumatoid Factor <20 IU/mL <10 WSR 0 - 20 mm/hr 22 (H) CRP <0.9 mg/dL 1.3 (H) PTH, Intact 15 - 65 pg/mL 42 TSH 0.270 - 4.200 mIU/L 0.889 STUDIES: *Apr US wrists/hands- Minimal active synovitis of the wrists, multiple bilateral MCP joints, right PIP joints and left second and third PIP joints *Oct xray feet- BILATERAL PES PLANUS. BILATERAL CALCANEAL ENTHESOPHYTES, LARGER ON THE LEFT. PROGRESSION OF DEGENERATIVE CHANGES OF THE TIBIOTALAR AND TALONAVICULAR JOINT ON THE LEFT. THE RIGHT FOOT IS UNCHANGED *Jan US wrist/hand- MILD SCATTERED ACTIVE SYNOVITIS, DETAILED. L side: 3rd MCP, radiocarpal and carpal joints. R side: 2nd MCP *November xray hands/l-spine- DJD of hands/l-spine *Jan CT chest- No CT evidence of pulmonary embolism. Lung parenchyma and airways: The central airways are patent. A band like opacity noted in the left lower lobe, likely representing subsegmental atelectasis; otherwise the lungs are clear of consolidations. There appears to be a 3 mm nodule in the juxtapleural area in the right upper lobe, series 6 image 51. No masses identified. Pleural space: No pleural effusion or pneumothorax. No pleural thickening. Lower neck, lymph nodes, and mediastinum: The imaged thyroid gland is normal. No lymphadenopathy in the supraclavicular, axillary, mediastinal, or hilar regions. *Apr xray feet- HALLUX VALGUS WITH MIDFOOT DEGENERATIVE CHANGES AND CALCANEAL ENTHESOPHYTES ON THE LEFT. CALCANEAL ENTHESOPHYTE AT THE PLANTAR FASCIA AND ACHILLES TENDON INSERTION ON THE RIGHT WITH EVIDENCE FOR REMOTE LIGAMENT INJURY. TALUS IMPRESSION and PLAN: 1. Inflammatory arthritis: Prior dx of SLE with history of malar rash, photosensitivity, mouth sores and joint pain with significant improvement s/p HCQ initiation, negative [facility] MARCUS by IFA on multiple occasions. Seronegative RA is a possibility too. US with mild synovitis of the wrist and multiple bilateral MCPs. Continued to have wrist and MCP pain bilaterally so increased to HCQ 200mg bid with significant improvement. Apr US with active synovitis as above. SSZ 1g/day without much improvement (lower dose for baseline mildly elevated LFTs); 1.5g/day with significant improvement - Continue to HCQ 200mg bid along with routine eye exams, last normal in Oct - Continue SSZ goal 1.5g/day (hold off on further dose increases given stability and stable mildly elevated ALT/AST). Closely monitor labs, next set due in Dec. Notify of results via Placeable, LLCt;t 2. Generalized osteoarthritis: Hands (per exam), likely spine, knees. Tylenol alone ineffective - Diclofenac prn - Chiropractor visits - Given referrals to PT and spine clinic in the past 3. General health maintenance: - Completed the covid vaccination series in August, 3rd Feb. - Continue follow-up with PCP for routine health maintenance and malignancy screening Follow-up in 3 months with me Thank you for allowing me to participate in the care of your patient. Darrell Jack MD documented in this encounter [facility] 11-20-2024 Note HNO ID: [id number] Author: FELIX ORNELAS MD Service: ? Author Type: Physician Type: Progress Notes Filed: 11/20/2024 13:35 Note Text: Felix Ornelas MD Interventional Cardiology [address] [place] [address] [phone] Chief Complaint Patient presents with: CARD Follow Up Annual HISTORY OF PRESENT ILLNESS: Ms. Givens is a 59-year-old female with a history of hypertension and hypercholesterolemia, presenting for a follow-up visit. The patient reports no significant changes in her health status since her last visit a year ago. She notes occasional dyspnea but does not find it concerning. She denies experiencing chest pain, dizziness, or lightheadedness. She tries to stay active and is planning a trip to [facility], which will involve walking. She underwent vertebroplasty, which involved the injection of cement into her spine, and reports that the procedure was 100% effective in alleviating her symptoms. She monitors her blood pressure at home and reports that it remains within the normal range. She denies any issues with her medications. She is currently taking Zetia and losartan 100 mg daily. age (male over 45, female over 55), obesity, hypertension, family history of CAD PAST MEDICAL HISTORY Diagnosis Date Abdominal pain, epigastric Cigarette smoker 06/27/2021 Depressive disorder, not elsewhere classified Diaphragmatic hernia without mention of obstruction or gangrene Lupus erythematosus Migraine, unspecified, with intractable migraine, so stated, without mention of status migrainosus Migraine Obstructive sleep apnea syndrome, severe with associated hypoxemia. patient declined to schedule follow up testing for CPAP Unspecified essential hypertension PAST SURGICAL HISTORY Procedure Laterality Date CHOLECYSTECTOMY 10/03 Cholecystectomy COLONOSCOPY FLX DX W/COLLJ SPEC WHEN PFRMD 12/10/2017 Colonoscopy ESOPHAGOGASTRODUODENOSCOPY TRANSORAL DIAGNOSTIC EGD ESOPHAGOGASTRODUODENOSCOPY TRANSORAL DIAGNOSTIC 12/10/2017 EGD PAST SURGICAL HISTORY OF trigger finger PAST SURGICAL HISTORY OF heel spur PAST SURGICAL HISTORY OF carpal tunnel PAST SURGICAL HISTORY OF 03/09/12 endovenous laser ablation of L great saphenous vein, small saphenous vein and vein of Giacomini FAMILY HISTORY Problem Relation Age of Onset Diabetes Mother Alzheimer's Disease Mother other (Polycythmeia vera) Father Breast Cancer Sister bilateral mastectomy other (HOCM with myocardial bridge) Sister Alzheimer's Disease Maternal Grandmother Heart Maternal Grandfather Cancer Paternal Grandfather Lung Alzheimer's Disease Maternal Aunt Alzheimer's Disease Maternal Uncle Alzheimer's Disease Maternal Uncle Social History Tobacco Use Smoking status: Former Current packs/day: 0.00 Average packs/day: 0.5 packs/day for 20.0 years (10.0 ttl pk-yrs) Types: Cigarettes Start date: 04/22/1989 Quit date: 04/22/2009 Years since quittin.5 Smokeless tobacco: Never Vaping Use Vaping status: Never Used Substance Use Topics Alcohol use: No Drug use: No ALLERGIES Allergen Reactions Lisinopril Intolerance sleepy Pravastatin Contraindication-Medical Surgical myositis Zithromax [Azithrom* Abdominal cramping Medications: Current Outpatient Medications Medication Sig Dispense Refill sulfaSALAzine (AZULFIDINE) 500 mg tablet Take 500 mg every morning and 1000mg every evening 90 tablet 0 Phentermine HCl 37.5 mg tablet Take 1 tablet by mouth once daily for 30 days. 30 tablet 0 diclofenac, EC, (VOLTAREN) 75 mg EC tablet Take 1 tablet by mouth two times a day. 180 tablet 3 doxycycline monohydrate (MONODOX) 100 mg capsule Take 1 capsule by mouth two times a day. 20 capsule 0 losartan (COZAAR) 100 mg tablet Take 1 tablet by mouth once daily. 90 tablet 3 buPROPion XL (WELLBUTRIN XL) 150 mg 24 hr tablet Take 1 tablet by mouth once daily. 90 tablet 1 topiramate (TOPAMAX) 100 mg tablet Take 1 tablet by mouth every evening. 90 tablet 3 levothyroxine (SYNTHROID) 100 mcg tablet Take 1 tablet by mouth daily before breakfast. 90 tablet 3 levothyroxine (SYNTHROID) 100 mcg tablet Take 1 tablet by mouth daily before breakfast. 30 tablet 0 ezetimibe (ZETIA) 10 mg tablet Take 1 tablet by mouth once daily. 90 tablet 3 cholecalciferol (VITAMIN D3) 5,000 unit tab Take 1 tablet by mouth once daily. 90 tablet 3 sertraline (ZOLOFT) 100 mg tablet Take 1 tablet by mouth once daily. Forgot Rx when traveling, do not cancel [facility] Rx 90 tablet 3 topiramate (TOPAMAX) 50 mg tablet Take 1 tablet by mouth daily at bedtime. 90 tablet 3 lansoprazole (PREVACID) 30 mg capsule Take 1 capsule by mouth once daily. 90 capsule 3 hydrOXYchloroQUINE (PLAQUENIL) 200 mg tablet Take 1 tablet by mouth two times a day. 180 tablet 3 folic acid 1 mg tablet Take 2 tablets by mouth once daily. 180 tablet 3 metFORMIN ER (GLUCOPHAGE XR) 500 m (more content not included)... [facility] 11-20-2024 History of Present illness Narrative Images from the original note were not included. Felix Ornelas MD Interventional Cardiology [address] [place] [id number] [phone] Chief Complaint Patient presents with: CARD Follow Up Annual HISTORY OF PRESENT ILLNESS: Ms. Givens is a 59-year-old female with a history of hypertension and hypercholesterolemia, presenting for a follow-up visit. The patient reports no significant changes in her health status since her last visit a year ago. She notes occasional dyspnea but does not find it concerning. She denies experiencing chest pain, dizziness, or lightheadedness. She tries to stay active and is planning a trip to [facility], which will involve walking. She underwent vertebroplasty, which involved the injection of cement into her spine, and reports that the procedure was 100% effective in alleviating her symptoms. She monitors her blood pressure at home and reports that it remains within the normal range. She denies any issues with her medications. She is currently taking Zetia and losartan 100 mg daily. age (male over 45, female over 55), obesity, hypertension, family history of CAD PAST MEDICAL HISTORY Diagnosis Date Abdominal pain, epigastric Cigarette smoker 06/27/2021 Depressive disorder, not elsewhere classified Diaphragmatic hernia without mention of obstruction or gangrene Lupus erythematosus Migraine, unspecified, with intractable migraine, so stated, without mention of status migrainosus Migraine Obstructive sleep apnea syndrome, severe with associated hypoxemia. patient declined to schedule follow up testing for CPAP Unspecified essential hypertension PAST SURGICAL HISTORY Procedure Laterality Date CHOLECYSTECTOMY 10/03 Cholecystectomy COLONOSCOPY FLX DX W/COLLJ SPEC WHEN PFRMD 12/10/2017 Colonoscopy ESOPHAGOGASTRODUODENOSCOPY TRANSORAL DIAGNOSTIC EGD ESOPHAGOGASTRODUODENOSCOPY TRANSORAL DIAGNOSTIC 12/10/2017 EGD PAST SURGICAL HISTORY OF trigger finger PAST SURGICAL HISTORY OF heel spur PAST SURGICAL HISTORY OF carpal tunnel PAST SURGICAL HISTORY OF 03/09/12 endovenous laser ablation of L great saphenous vein, small saphenous vein and vein of Giacomini FAMILY HISTORY Problem Relation Age of Onset Diabetes Mother Alzheimer's Disease Mother other (Polycythmeia vera) Father Breast Cancer Sister bilateral mastectomy other (HOCM with myocardial bridge) Sister Alzheimer's Disease Maternal Grandmother Heart Maternal Grandfather Cancer Paternal Grandfather Lung Alzheimer's Disease Maternal Aunt Alzheimer's Disease Maternal Uncle Alzheimer's Disease Maternal Uncle Social History Tobacco Use Smoking status: Former Current packs/day: 0.00 Average packs/day: 0.5 packs/day for 20.0 years (10.0 ttl pk-yrs) Types: Cigarettes Start date: 04/22/1989 Quit date: 04/22/2009 Years since quittin.5 Smokeless tobacco: Never Vaping Use Vaping status: Never Used Substance Use Topics Alcohol use: No Drug use: No ALLERGIES Allergen Reactions Lisinopril Intolerance sleepy Pravastatin Contraindication-Medical Surgical myositis Zithromax [Azithrom* Abdominal cramping Medications: Current Outpatient Medications Medication Sig Dispense Refill sulfaSALAzine (AZULFIDINE) 500 mg tablet Take 500 mg every morning and 1000mg every evening 90 tablet 0 Phentermine HCl 37.5 mg tablet Take 1 tablet by mouth once daily for 30 days. 30 tablet 0 diclofenac, EC, (VOLTAREN) 75 mg EC tablet Take 1 tablet by mouth two times a day. 180 tablet 3 doxycycline monohydrate (MONODOX) 100 mg capsule Take 1 capsule by mouth two times a day. 20 capsule 0 losartan (COZAAR) 100 mg tablet Take 1 tablet by mouth once daily. 90 tablet 3 buPROPion XL (WELLBUTRIN XL) 150 mg 24 hr tablet Take 1 tablet by mouth once daily. 90 tablet 1 topiramate (TOPAMAX) 100 mg tablet Take 1 tablet by mouth every evening. 90 tablet 3 levothyroxine (SYNTHROID) 100 mcg tablet Take 1 tablet by mouth daily before breakfast. 90 tablet 3 levothyroxine (SYNTHROID) 100 mcg tablet Take 1 tablet by mouth daily before breakfast. 30 tablet 0 ezetimibe (ZETIA) 10 mg tablet Take 1 tablet by mouth once daily. 90 tablet 3 cholecalciferol (VITAMIN D3) 5,000 unit tab Take 1 tablet by mouth once daily. 90 tablet 3 sertraline (ZOLOFT) 100 mg tablet Take 1 tablet by mouth once daily. Forgot Rx when traveling, do not cancel [facility] Rx 90 tablet 3 topiramate (TOPAMAX) 50 mg tablet Take 1 tablet by mouth daily at bedtime. 90 tablet 3 lansoprazole (PREVACID) 30 mg capsule Take 1 capsule by mouth once daily. 90 capsule 3 hydrOXYchloroQUINE (PLAQUENIL) 200 mg tablet Take 1 tablet by mouth two times a day. 180 tablet 3 folic acid 1 mg tablet Take 2 tablets by mouth once daily. 180 tablet 3 metFORMIN ER (GLUCOPHAGE XR) 500 mg 24 hr tablet Take 1 tablet by mouth daily with breakfast. Forgot Rx when traveling, do not cancel [facility] Rx 90 tablet 3 mometasone (ELOCON) 0.1 % cream Apply 1 application to affected area once daily. 120 g 3 omega-3 acid ethyl esters (LOVAZA) 1 gram capsule TAKE 2 CAPSULES ONCE DAILY 180 capsule 3 MV with Emr-Gcnyzzdq-Zxwktb (CENTRUM SILVER) 0.4-300-250 mg-mcg-mcg tab Take 1 tablet by mouth once daily. 1 tablet 0 No current facility-administered medications for this visit. Review of Systems Constitutional: Negative for chills, diaphoresis, fever, malaise/fatigue and weight loss. HENT: Negative for congestion, ear discharge, ear pain, hearing loss, nosebleeds, sinus pain, sore throat and tinnitus. Eyes: Negative for blurred vision, double vision, photophobia, pain, discharge and redness. Respiratory: Negative for cough, hemoptysis, sputum production, shortness of breath, wheezing and stridor. Cardiovascular: Negative for chest pain, palpitations, orthopnea, claudication, leg swelling and PND. Gastrointestinal: Negative for abdominal pain, blood in stool, constipation, diarrhea, heartburn, melena, nausea and vomiting. Genitourinary: Negative for dysuria, flank pain, frequency, hematuria and urgency. Musculoskeletal: Negative for back pain, falls, joint pain, myalgias and neck pain. Skin: Negative for itching and rash. Neurological: Negative for dizziness, tingling, tremors, sensory change, speech change, focal weakness, seizures, loss of consciousness, weakness and headaches. Endo/Heme/Allergies: Negative for environmental allergies and polydipsia. Does not bruise/bleed easily. Psychiatric/Behavioral: Negative for depression, hallucinations, memory loss, substance abuse and suicidal ideas. The patient is not nervous/anxious and does not have insomnia. Physical Examination: Vitals:BP 132/82 Pulse 93 Wt 276 lb (125.2kg) SpO2 97% BP w/Orthostatic Vitals Date and Time Orthostatic BP Orthostatic Pulse BP Pulse BP Position BP Site BP Cuff Size 11/20/24 1317 -- -- 132/82 93 -- -- -- Last 2 Encounter Wt Readings: Date: Wt: 11/20/2024 125.2 kg (276 lb) 10/25/2024 128.4 kg (283 lb) Physical Exam Constitutional: General: She is not in acute distress. Appearance: She is not diaphoretic. HENT: Head: Normocephalic and atraumatic. Right Ear: External ear normal. Left Ear: External ear normal. Nose: Nose normal. Mouth/Throat: Pharynx: Oropharynx is clear. Eyes: General: Right eye: No discharge. Left eye: No discharge. Conjunctiva/sclera: Conjunctivae normal. Pupils: Pupils are equal, round, and reactive to light. Cardiovascular: Rate and Rhythm: Normal rate and regular rhythm. Heart sounds: Normal heart sounds, S1 normal and S2 normal. No murmur heard. No friction rub. No gallop. No S3 or S4 sounds. Pulmonary: Effort: Pulmonary effort is normal. No respiratory distress. Breath sounds: Normal breath sounds. No wheezing or rales. Chest: Chest wall: No tenderness. Musculoskeletal: General: Normal range of motion. Cervical back: Normal range of motion and neck supple. Skin: General: Skin is warm and dry. Neurological: Mental Status: She is alert and oriented to person, place, and time. Psychiatric: Mood and Affect: Mood normal. Thought Content: Thought content normal. Pertinent Labs: CBC: Hemoglobin (g/dL) Date Value 10/19/2024 12.8 05/09/2021 13.9 Hematocrit (%) Date Value 10/19/2024 39.0 05/09/2021 42.9 WBC (k/uL) Date Value 10/19/2024 10.26 05/09/2021 8.71 Platelet Count (k/uL) Date Value 10/19/2024 241 05/09/2021 264 BMP: Glucose (mg/dL) Date Value 06/15/2024 121 05/09/2021 139 Potassium (mmol/L) Date Value 06/15/2024 4.1 05/09/2021 3.6 Sodium (mmol/L) Date Value 06/15/2024 142 05/09/2021 137 Chloride (mmol/L) Date Value 06/15/2024 104 05/09/2021 101 CO2 (mmol/L) Date Value 06/15/2024 29 05/09/2021 25 Creatinine (mg/dL) Date Value 10/19/2024 0.75 05/09/2021 0.70 BUN (mg/dL) Date Value 06/15/2024 18 05/09/2021 11 Anion Gap (mmol/L) Date Value 06/15/2024 9 05/09/2021 11 Calcium (mg/dL) Date Value 05/09/2021 9.4 Calcium, Total (mg/dL) Date Value 06/15/2024 10.3 INR: Lipid Profile: Cholesterol, Total Date Value Ref Range Status 10/19/2024 180 <200 mg/dL Final Comment: <200 mg/dL, Desirable 200-239 mg/dL, Borderline high >239 mg/dL, High HDL Cholesterol Date Value Ref Range Status 10/19/2024 49 >39 mg/dL Final Comment: 40-59 mg/dL, Acceptable >59 mg/dL, High: Negative risk factor for coronary heart disease <40 mg/dL, Low: Positive risk factor for coronary heart disease LDL Cholesterol, Calculated Date Value Ref Range Status 10/19/2024 109 (H) <100 mg/dL Final Comment: <100 mg/dL, Optimal 100-129 mg/dL, Near optimal/above optimal 130-159 mg/dL, Borderline high 160-189 mg/dL, High >189 mg/dL, Very high Secondary prevention optimal LDL Cholesterol levels are recommended to be <70 mg/dL LDL cholesterol is calculated using the Pacheco-NIH equation. Triglyceride Date Value Ref Range Status 10/19/2024 123 <150 mg/dL Final Comment: <150 mg/dL, Normal 150-199 mg/dL, Borderline high 200-499 mg/dL, High >499 mg/dL, Very high Hemoglobin A1C: No results found for: HGBA1C TSH: No results found for: TSHREFL Prior Cardiac Testing none Assessment and Plan: 59 years old female with history of hypertension hyperlipidemia ASSESSMENT/PLAN: 1. Primary hypertension - ICD9: 401.9, ICD10: I10 (primary diagnosis) - Controlled - Continue current medications - Recommend home blood pressure monitoring, to bring results to next visit - Encouraged sodium restriction, DASH or Mediterranean diet - Recommend regular aerobic exercise 2. Pure hypercholesterolemia - ICD9: 272.0, ICD10: E78.00 On therapy We discussed your overall health and blood pressure: - Your blood pressure today was 132/82, and your heart rate was 93, which are within a good range. - You reported that your blood pressure has been well controlled at home, and you are not experiencing any significant symptoms such as chest pain, dizziness, or lightheadedness. You mentioned occasional shortness of breath, but it is not concerning to you. - Continue taking Zetia for cholesterol and losartan 100 mg for blood pressure as prescribed. You do not need a refill for losartan at this time, as you have enough until August. We discussed your activity level and recent procedures: - You are staying active and preparing for a trip to [facility], which will involve walking. This is a great way to stay active. - You mentioned that you previously had a vertebroplasty with cement injection in your spine, which has been effective in relieving your symptoms. Follow-Up: - I recommend we see each other again in one year for your annual check-up. - If you experience any new or concerning symptoms before then, please contact my office. Felix Ornelas MD Follow up planning: One year Electronically signed by Felix Ornelas MD on November 20, 2024, 1:29 PM The above note was partially created using a dictation recognition software. A reasonable attempt has been made to correct any errors. documented in this encounter [facility] 11-14-2024 Evaluation note Diagnosis Onset Date Resolution CHATO (obstructive sleep apnea) chronic November 14, 2024 8:47am [facility] Work Phone: [phone] NoteHNO ID: [id number] Author: JOHNSON DAILEY MA Service: ? Author Type: Crap Shooter Type: Progress Notes Filed: 11/13/2024 08:52 Note Text: PLQ eye exam done on 11/11/2024. No evidence of PLQ toxicity. Report sent for scanning. Johnson [facility]06-16-2025 History of Present illness Narrative* Johnson Dailey MA - 11/13/2024 8:51 AM EDT PLQ eye exam done on 11/11/2024. No evidence of PLQ toxicity. Report sent for scanning. Johnson Dailey MA [facility] Telephone encounter Note * Telephone Encounter - Emanuel Palomares APRN.CNP - 11/06/2024 8:39 AM EDT Will defer to Dr. Jack. I am no longer seeing the patient. Emanuel Negrete APRN.ELDER [facility] Work Phone: [phone]) 250-877006-09-2025 Miscellaneous Notes* Telephone Encounter - Emanuel Palomares APRN.CNP - 11/06/2024 8:39 AM EDT Will defer to Dr. Jack. I am no longer seeing the patient. Emanuel Negrete APRN.ELDER * Telephone Encounter - Johnson Dailey MA - 11/06/2024 8:20 AM EDT Patient has been identified by name and date of : Yes RX INSTRUCTIONS: Patient aware RX will be sent to pharmacy. No need to notify patient. LAST APPOINTMENT: 03/27/2024 UPCOMING APPOINTMENT: 11/21/2024 LABS: Hemoglobin (g/dL) Date Value 10/19/2024 12.8 05/09/2021 13.9 Hematocrit (%) Date Value 10/19/2024 39.0 05/09/2021 42.9 WBC (k/uL) Date Value 10/19/2024 10.26 05/09/2021 8.71 Platelet Count (k/uL) Date Value 10/19/2024 241 05/09/2021 264 AST Date Value Ref Range Status 10/19/2024 43 (H) 13 - 35 U/L Final ALT Date Value Ref Range Status 10/19/2024 39 (H) 7 - 38 U/L Final Creatinine Date Value Ref Range Status 10/19/2024 0.75 0.58 - 0.96 mg/dL Final No results found for: URICACID Johnson Dailey MA [facility] Telephone encounter Note * Telephone Encounter - Johnson Dailey MA - 11/06/2024 8:20 AM EDT Patient has been identified by name and date of : Yes RX INSTRUCTIONS: Patient aware RX will be sent to pharmacy. No need to notify patient. LAST APPOINTMENT: 03/27/2024 UPCOMING APPOINTMENT: 11/21/2024 LABS: Hemoglobin (g/dL) Date Value 10/19/2024 12.8 05/09/2021 13.9 Hematocrit (%) Date Value 10/19/2024 39.0 05/09/2021 42.9 WBC (k/uL) Date Value 10/19/2024 10.26 05/09/2021 8.71 Platelet Count (k/uL) Date Value 10/19/2024 241 05/09/2021 264 AST Date Value Ref Range Status 10/19/2024 43 (H) 13 - 35 U/L Final ALT Date Value Ref Range Status 10/19/2024 39 (H) 7 - 38 U/L Final Creatinine Date Value Ref Range Status 10/19/2024 0.75 0.58 - 0.96 mg/dL Final No results found for: URICACID Johnson Dailey MA [facility]05-30-2025 NoteHNO ID: [id number] Author: MATTIE SOMERS APRN.CUSTOM APPLICATOR Service: ? Author Type: Nurse Practitioner Type: Progress Notes Filed: 10/27/2024 15:24 Note Text: CC: Patient presents with: Recheck: Cellulitis follow up HPI Berenice Givens is a 59 year old female who presents today for follow up on cat bite. Was treated previously augmentin and doxycycline, but was seen 2 days ago with return of redness tenderness and drainage. Was started on bactrim. Recording using [employer] software for draft documentation of the visit was discussed with the patient/authorized patient representative; all questions welcomed and answered. Patient/authorized patient representative agreed to proceed Cat Bite Infection: - Started on Bactrim 2 days ago; has taken 4 doses. - Denies fever, chills, or red streaking. - Swelling is decreasing; able to see veins in the hand. - No further drainage noted. - Pain has significantly improved; previously very tender, now minimal tenderness. - Hand remains warm, but no difference in temperature compared to the rest of the body. Also brings up concerns for obesity. Walks throughout the week for exercise and has recently increased to 2-3 miles daily but still has only lost a few pounds. Is on wellbutrin to help with weight loss but has not lost much. Also states she adheres to a healthy well balanced diet most of the time and avoids snacking. Is also on topiramate but is on this for migraine prevention and has been on this for years. REVIEW OF SYSTEMS General: no fevers, no chills, no night sweats, no recurrent infections, no change in appetite, no change in energy, and no significant changes in weight Respiratory: no cough, no wheezing, no shortness of breath, no hemoptysis Cardiovascular: no chest pain, no chest pressure, no palpitations, and no swelling PAST MEDICAL HISTORY Diagnosis Date Abdominal pain, epigastric Cigarette smoker 06/27/2021 Depressive disorder, not elsewhere classified Diaphragmatic hernia without mention of obstruction or gangrene Lupus erythematosus Migraine, unspecified, with intractable migraine, so stated, without mention of status migrainosus Migraine Obstructive sleep apnea syndrome, severe with associated hypoxemia. patient declined to schedule follow up testing for CPAP Unspecified essential hypertension PAST SURGICAL HISTORY Procedure Laterality Date CHOLECYSTECTOMY 10/03 Cholecystectomy COLONOSCOPY FLX DX W/COLLJ SPEC WHEN PFRMD 12/10/2017 Colonoscopy ESOPHAGOGASTRODUODENOSCOPY TRANSORAL DIAGNOSTIC EGD ESOPHAGOGASTRODUODENOSCOPY TRANSORAL DIAGNOSTIC 12/10/2017 EGD PAST SURGICAL HISTORY OF trigger finger PAST SURGICAL HISTORY OF heel spur PAST SURGICAL HISTORY OF carpal tunnel PAST SURGICAL HISTORY OF 03/09/12 endovenous laser ablation of L great saphenous vein, small saphenous vein and vein of [place] ALLERGIES Lisinopril, Pravastatin, and Zithromax [Azithromycin] MEDICATIONS Phentermine HCl 37.5 mg tablet Take 1 tablet by mouth once daily for 30 days. sulfamethoxazole-trimethoprim (BACTRIM DS) 800-160 mg per tablet Take 1 tablet by mouth two times a day for 7 days. diclofenac, EC, (VOLTAREN) 75 mg EC tablet Take 1 tablet by mouth two times a day. amoxicillin-clavulanate potassium (AUGMENTIN) 875-125 mg per tablet Take 1 tablet by mouth two times a day. doxycycline monohydrate (MONODOX) 100 mg capsule Take 1 capsule by mouth two times a day. sulfaSALAzine (AZULFIDINE) 500 mg tablet Take 500 mg every morning and 1000mg every evening losartan (COZAAR) 100 mg tablet Take 1 tablet by mouth once daily. buPROPion XL (WELLBUTRIN XL) 150 mg 24 hr tablet Take 1 tablet by mouth once daily. topiramate (TOPAMAX) 100 mg tablet Take 1 tablet by mouth every evening. levothyroxine (SYNTHROID) 100 mcg tablet Take 1 tablet by mouth daily before breakfast. levothyroxine (SYNTHROID) 100 mcg tablet Take 1 tablet by mouth daily before breakfast. ezetimibe (ZETIA) 10 mg tablet Take 1 tablet by mouth once daily. cholecalciferol (VITAMIN D3) 5,000 unit tab Take 1 tablet by mouth once daily. sertraline (ZOLOFT) 100 mg tablet Take 1 tablet by mouth once daily. Forgot Rx when traveling, do not cancel [facility] topiramate (TOPAMAX) 50 mg tablet Take 1 tablet by mouth daily at bedtime. lansoprazole (PREVACID) 30 mg capsule Take 1 capsule by mouth once daily. hydrOXYchloroQUINE (PLAQUENIL) 200 mg tablet Take 1 tablet by mouth two times a day. folic acid 1 mg tablet Take 2 tablets by mouth once daily. metFORMIN ER (GLUCOPHAGE XR) 500 mg 24 hr tablet Take 1 tablet by mouth daily with breakfast. Forgot Rx when traveling, do not cancel [facility] mometasone (ELOCON) 0.1 % cream Apply 1 application to affected area once daily. omega-3 acid ethyl esters (LOVAZA) 1 gram capsule TAKE 2 CAPSULES ONCE DAILY MV with Ukm-Jbsqgzqh-Vbnumz (CENTRUM SILVER) 0.4-300-250 mg-mcg-mcg tab Take 1 tablet by m (more content not included)...[facility]05-30-2025 History of Present illness Narrative* Lizbet, CLIFTON Phelps.CUSTOM APPLICATOR - 10/27/2024 3:17 PM EDT CC: Patient presents with: Recheck: Cellulitis follow up HPI Berenice Givens is a 59 year old female who presents today for follow up on cat bite. Was treated previously augmentin and doxycycline, but was seen 2 days ago with return of redness tenderness and drainage. Was started on bactrim. Recording using [employer] software for draft documentation of the visit was discussed with the patient/authorized patient representative; all questions welcomed and answered. Patient/authorized patient representative agreed to proceed Cat Bite Infection: - Started on Bactrim 2 days ago; has taken 4 doses. - Denies fever, chills, or red streaking. - Swelling is decreasing; able to see veins in the hand. - No further drainage noted. - Pain has significantly improved; previously very tender, now minimal tenderness. - Hand remains warm, but no difference in temperature compared to the rest of the body. Also brings up concerns for obesity. Walks throughout the week for exercise and has recently increased to 2-3 miles daily but still has only lost a few pounds. Is on wellbutrin to help with weight loss but has not lost much. Also states she adheres to a healthy well balanced diet most of the time and avoids snacking. Is also on topiramate but is on this for migraine prevention and has been on this for years. REVIEW OF SYSTEMS General: no fevers, no chills, no night sweats, no recurrent infections, no change in appetite, no change in energy, and no significant changes in weight Respiratory: no cough, no wheezing, no shortness of breath, no hemoptysis Cardiovascular: no chest pain, no chest pressure, no palpitations, and no swelling PAST MEDICAL HISTORY Diagnosis Date Abdominal pain, epigastric Cigarette smoker 06/27/2021 Depressive disorder, not elsewhere classified Diaphragmatic hernia without mention of obstruction or gangrene Lupus erythematosus Migraine, unspecified, with intractable migraine, so stated, without mention of status migrainosus Migraine Obstructive sleep apnea syndrome, severe with associated hypoxemia. patient declined to schedule follow up testing for CPAP Unspecified essential hypertension PAST SURGICAL HISTORY Procedure Laterality Date CHOLECYSTECTOMY 10/03 Cholecystectomy COLONOSCOPY FLX DX W/COLLJ SPEC WHEN PFRMD 12/10/2017 Colonoscopy ESOPHAGOGASTRODUODENOSCOPY TRANSORAL DIAGNOSTIC EGD ESOPHAGOGASTRODUODENOSCOPY TRANSORAL DIAGNOSTIC 12/10/2017 EGD PAST SURGICAL HISTORY OF trigger finger PAST SURGICAL HISTORY OF heel spur PAST SURGICAL HISTORY OF carpal tunnel PAST SURGICAL HISTORY OF 03/09/12 endovenous laser ablation of L great saphenous vein, small saphenous vein and vein of [place] ALLERGIES Lisinopril, Pravastatin, and Zithromax [Azithromycin] MEDICATIONS Phentermine HCl 37.5 mg tablet Take 1 tablet by mouth once daily for 30 days. sulfamethoxazole-trimethoprim (BACTRIM DS) 800-160 mg per tablet Take 1 tablet by mouth two times aday for 7 days. diclofenac, EC, (VOLTAREN) 75 mg EC tablet Take 1 tablet by mouth two times a day. amoxicillin-clavulanate potassium (AUGMENTIN) 875-125 mg per tablet Take 1 tablet by mouth two times a day. doxycycline monohydrate (MONODOX) 100 mg capsule Take 1 capsule by mouth two times a day. sulfaSALAzine (AZULFIDINE) 500 mg tablet Take 500 mg every morning and 1000mg every evening losartan (COZAAR) 100 mg tablet Take 1 tablet by mouth once daily. buPROPion XL (WELLBUTRIN XL) 150 mg 24 hr tablet Take 1 tablet by mouth once daily. topiramate (TOPAMAX) 100 mg tablet Take 1 tablet by mouth every evening. levothyroxine (SYNTHROID) 100 mcg tablet Take 1 tablet by mouth daily before breakfast. levothyroxine (SYNTHROID) 100 mcg tablet Take 1 tablet by mouth daily before breakfast. ezetimibe (ZETIA) 10 mg tablet Take 1 tablet by mouth once daily. cholecalciferol (VITAMIN D3) 5,000 unit tab Take 1 tablet by mouth once daily. sertraline (ZOLOFT) 100 mg tablet Take 1 tablet by mouth once daily. Forgot Rx when traveling, do not cancel [facility] topiramate (TOPAMAX) 50 mg tablet Take 1 tablet by mouth daily at bedtime. lansoprazole (PREVACID) 30 mg capsule Take 1 capsule by mouth once daily. hydrOXYchloroQUINE (PLAQUENIL) 200 mg tablet Take 1 tablet by mouth two times a day. folic acid 1 mg tablet Take 2 tablets by mouth once daily. metFORMIN ER (GLUCOPHAGE XR) 500 mg 24 hr tablet Take 1 tablet by mouth daily with breakfast. Forgot Rx when traveling, do not cancel [facility] Rx mometasone (ELOCON) 0.1 % cream Apply 1 application to affected area once daily. omega-3 acid ethyl esters (LOVAZA) 1 gram capsule TAKE 2 CAPSULES ONCE DAILY MV with Qgh-Tecwsmno-Lffpnz (CENTRUM SILVER) 0.4-300-250 mg-mcg-mcg tab Take 1 tablet by mouth oncedaily. FAMILY HISTORY Problem Relation Age of Onset Diabetes Mother Alzheimer's Disease Mother other (Polycythmeia vera) Father Breast Cancer Sister bilateral mastectomy other (HOCM with myocardial bridge) Sister Alzheimer's Disease Maternal Grandmother Heart Maternal Grandfather Cancer Paternal Grandfather Lung Alzheimer's Disease Maternal Aunt Alzheimer's Disease Maternal Uncle Alzheimer's Disease Maternal Uncle Social History Tobacco Use Smoking status: Former Current packs/day: 0.00 Average packs/day: 0.5 packs/day for 20.0 years (10.0 ttl pk-yrs) Types: Cigarettes Start date: 04/22/1989 Quit date: 04/22/2009 Years since quittin.5 Smokeless tobacco: Never Vaping Use Vaping status: Never Used Substance Use Topics Alcohol use: No Drug use: No PHYSICAL EXAM BP 130/72 Pulse 77 Temp 36.5 C (97.7 F) (Temporal) Resp 16 SpO2 96% General Appearance: well appearing, in no acute distress, alert Skin: decrease in redness edema and tenderness to right hand. No further drainage. The wound to dorsal side of hand has only small amount of redness left to exterior tissue of wound which is much improved. Eyes: conjunctiva pink and moist, no icterus, sclera white, non-injected Lungs: Lungs clear to auscultation. No wheezing, rhonchi, rales. Heart: RRR without murmur, gallop, or rubs. No ectopy Health maintenance reviewed with patient: Anxiety Screening Never done BP Controlled (<130/80) Never done Shingrix Vaccine(1 of 2) Never done Cervical Cancer Screening due on 08/11/2018 Covid-19 Vaccine( season) due on 01/30/2024 Mammogram Screening due on 12/14/2024 Annual PCP Team Chronic Disease Visit due on 10/27/2025 Diabetes Screening due on 06/26/2027 Colorectal Cancer Screening due on 12/11/2027 Lipid Screening due on 10/19/2029 DTaP,Tdap,Td Vaccine(4 - Td or Tdap) due on 05/11/2033 Influenza Vaccine Completed Hepatitis C Screening Completed HIV Screening Completed Pneumococcal Vaccine: 50+ Completed DATA REVIEWED: No new labs Assessment/Plan 1. Cellulitis of right hand (L03.113) 2. Cat bite, subsequent encounter (W55.01XD) - Significant improvement noted; decreased erythema and edema, with visible veins and reduced tenderness on palpation. - No signs of systemic infection such as fever, chills, or lymphangitis. - Continue current Bactrim regimen for a total of 7 days. - If erythema persists beyond Wednesday, extend Bactrim treatment to 10 days. - Advised to seek emergency care if symptoms worsen, including fever, chills, increased erythema, lymphangitis, or recurrence of drainage. 3. Class 3 severe obesity with serious comorbidity and body mass index (BMI) of 40.0 to 44.9 in adult, unspecified obesity type (E66.813) Weight decreasing - Behavioral and pharmacological intervention - PHENTERMINE 37.5 MG TABLET Discussed Contraindications, went over each one and over side effects. tolerance, continuity of medication, controlled medication so cannot be replaced if stolen or if lost. Advised exercising along with this will really help the patient reach her goal of loosing weight. Short term use of this med was discussed. Negative for all the following :Hypersensitivity or idiosyncrasy to phentermine or other sympathomimetic amines or any component of the formulation; history of cardiovascular disease (arrhythmias, congestive heart failure, coronary artery disease, stroke, uncontrolled hypertension); hyperthyroidism, glaucoma, agitated states, history of drug abuse; use during or within 14 days following MAO inhibitor therapy; , breast-feeding. PDMP website checked and validated. All prescriptions have been APPROPRIATELY filled. No suspiciousactivity was identified. 10/27/2024 by Mattie Somers APRN.CNP Prescription instructions reviewed with patient as applicable. Potential red flag symptoms discussed with the patient. Reviewed appropriate action plan to take if red flag symptoms occur. Patient agreeable to treatment plan. Mattie Somers APRN.CNP [facility] Instructions* Patient Instructions* Mattie Somers APRN.CNP - 10/27/2024 2:19 PM EDT - Continue taking Bactrim exactly as prescribed to complete a 7-day course. - Check your hand each day; if the redness at the bite site remains bright red (rather than pink) by Wednesday, call the office so we can extend your antibiotic course to 10 days. - Watch for any signs of worsening infection--fever, chills, body aches, increased redness or red streaking, new drainage, or return of swelling--and go to the emergency room if these occur. documented in this encounterReg[facility]05-28-2025 Instructions* Patient Instructions* Mattie Somers APRN.CNP - 10/25/2024 12:50 PM EDT - Fill and start the Bactrim (trimethoprim-sulfamethoxazole) prescription at [facility] in [place] and take it exactly as directed. - Begin a daily probiotic supplement and eat yogurt to help prevent antibiotic- associated diarrhea. - Watch the bite site for any new drainage, increased redness or warmth, swelling, or red streaks moving up your arm. If you develop fever, chills, or these signs worsen, go to the nearest emergency room. - If you cannot make the recheck on Wednesday at 2:40 PM, send a message with a photo of the bite and an update on how you re feeling. - Return on Wednesday at 2:40 PM for re-evaluation. If the area hasn t improved significantly, an additional antibiotic may be added. documented in this encounterReg[facility]05-28-2025 NoteHNO ID: [id number] Author: MATTIE SOMERS APRN.CNP Service: ? Author Type: Nurse Practitioner Type: Progress Notes Filed: 10/26/2024 07:41 Note Text: CC: Patient presents with: Recheck: 3 month follow up HPI Berenice Givens is a 59 year old female who presents today for routine follow up but recent cat bite she had been treated for is getting red again and starting to drain. Recording using [employer] software for draft documentation of the visit was discussed with the patient/authorized patient representative; all questions welcomed and answered. Patient/authorized patient representative agreed to proceed Cat Bite: - Originally bitten by her cat on the right hand. - Initially treated in the ER with Augmentin for 7 days,when she saw PCP Doxycycline was added for 10 days. Finished treatment 5 days ago - Reports persistent erythema, warmth, and purulent drainage from the bite site. - Noticed increased erythema and warmth recently in the past few days - Denies fever, chills, or lymphangitic streaking. - Experiencing fatigue and mild dyspnea since the bite but unsure if it is related to bite, or her lupus, or other cause - Denies chest pain, palpitations, cough, wheezing, or other concern. - No changes in urine color or consistency. - Developed diarrhea while on antibiotics, now resolved. - Currently experiencing a yeast infection form antibiotic treatment. REVIEW OF SYSTEMS See HPI PAST MEDICAL HISTORY Diagnosis Date Abdominal pain, epigastric Cigarette smoker 06/27/2021 Depressive disorder, not elsewhere classified Diaphragmatic hernia without mention of obstruction or gangrene Lupus erythematosus Migraine, unspecified, with intractable migraine, so stated, without mention of status migrainosus Migraine Obstructive sleep apnea syndrome, severe with associated hypoxemia. patient declined to schedule follow up testing for CPAP Unspecified essential hypertension PAST SURGICAL HISTORY Procedure Laterality Date CHOLECYSTECTOMY 10/03 Cholecystectomy COLONOSCOPY FLX DX W/COLLJ SPEC WHEN PFRMD 12/10/2017 Colonoscopy ESOPHAGOGASTRODUODENOSCOPY TRANSORAL DIAGNOSTIC EGD ESOPHAGOGASTRODUODENOSCOPY TRANSORAL DIAGNOSTIC 12/10/2017 EGD PAST SURGICAL HISTORY OF trigger finger PAST SURGICAL HISTORY OF heel spur PAST SURGICAL HISTORY OF carpal tunnel PAST SURGICAL HISTORY OF 03/09/12 endovenous laser ablation of L great saphenous vein, small saphenous vein and vein of [place] ALLERGIES Lisinopril, Pravastatin, and Zithromax [Azithromycin] MEDICATIONS sulfamethoxazole-trimethoprim (BACTRIM DS) 800-160 mg per tablet Take 1 tablet by mouth two times a day for 7 days. fluconazole (DIFLUCAN) 150 mg tablet Take 1 tablet by mouth one time only for 1 dose. Repeat in 3 days as needed. diclofenac, EC, (VOLTAREN) 75 mg EC tablet Take 1 tablet by mouth two times a day. amoxicillin-clavulanate potassium (AUGMENTIN) 875-125 mg per tablet Take 1 tablet by mouth two times a day. doxycycline monohydrate (MONODOX) 100 mg capsule Take 1 capsule by mouth two times a day. sulfaSALAzine (AZULFIDINE) 500 mg tablet Take 500 mg every morning and 1000mg every evening losartan (COZAAR) 100 mg tablet Take 1 tablet by mouth once daily. buPROPion XL (WELLBUTRIN XL) 150 mg 24 hr tablet Take 1 tablet by mouth once daily. topiramate (TOPAMAX) 100 mg tablet Take 1 tablet by mouth every evening. levothyroxine (SYNTHROID) 100 mcg tablet Take 1 tablet by mouth daily before breakfast. levothyroxine (SYNTHROID) 100 mcg tablet Take 1 tablet by mouth daily before breakfast. ezetimibe (ZETIA) 10 mg tablet Take 1 tablet by mouth once daily. cholecalciferol (VITAMIN D3) 5,000 unit tab Take 1 tablet by mouth once daily. sertraline (ZOLOFT) 100 mg tablet Take 1 tablet by mouth once daily. Forgot Rx when traveling, do not cancel [facility] topiramate (TOPAMAX) 50 mg tablet Take 1 tablet by mouth daily at bedtime. lansoprazole (PREVACID) 30 mg capsule Take 1 capsule by mouth once daily. hydrOXYchloroQUINE (PLAQUENIL) 200 mg tablet Take 1 tablet by mouth two times a day. folic acid 1 mg tablet Take 2 tablets by mouth once daily. metFORMIN ER (GLUCOPHAGE XR) 500 mg 24 hr tablet Take 1 tablet by mouth daily with breakfast. Forgot Rx when traveling, do not cancel [facility] Rx mometasone (ELOCON) 0.1 % cream Apply 1 application to affected area once daily. omega-3 acid ethyl esters (LOVAZA) 1 gram capsule TAKE 2 CAPSULES ONCE DAILY MV with Gqy-Nhaugmpo-Xcpryr (CENTRUM SILVER) 0.4-300-250 mg-mcg-mcg tab Take 1 tablet by mouth once daily. FAMILY HISTORY Problem Relation Age of Onset Diabetes Mother Alzheimer's Disease Mother other (Polycythmeia vera) Father Breast Cancer Sister bilateral mastectomy other (HOCM with myocardial bridge) Sister Alzheimer's Disease Maternal Grandmother Heart Maternal Grandfather Cancer Paternal Grandfather Lung Alzheimer's D (more content not included)...[facility]05-28-2025 History of Present illness Narrative* Lizbet, MattieCLIFTON.CUSTOM APPLICATOR - 10/25/2024 12:48 PM EDT CC: Patient presents with: Recheck: 3 month follow up HPI Berenice Givens is a 59 year old female who presents today for routine follow up but recent cat biteshe had been treated for is getting red again and starting to drain. Recording using [employer] software for draft documentation of the visit was discussed with the patient/authorized patient representative; all questions welcomed and answered. Patient/authorized patient representative agreed to proceed Cat Bite: - Originally bitten by her cat on the right hand. - Initially treated in the ER with Augmentin for 7 days,when she saw PCP Doxycycline was added for 10 days. Finished treatment 5 days ago - Reports persistent erythema, warmth, and purulent drainage from the bite site. - Noticed increased erythema and warmth recently in the past few days - Denies fever, chills, or lymphangitic streaking. - Experiencing fatigue and mild dyspnea since the bite but unsure if it is related to bite, or her lupus, or other cause - Denies chest pain, palpitations, cough, wheezing, or other concern. - No changes in urine color or consistency. - Developed diarrhea while on antibiotics, now resolved. - Currently experiencing a yeast infection form antibiotic treatment. REVIEW OF SYSTEMS See HPI PAST MEDICAL HISTORY Diagnosis Date Abdominal pain, epigastric Cigarette smoker 06/27/2021 Depressive disorder, not elsewhere classified Diaphragmatic hernia without mention of obstruction or gangrene Lupus erythematosus Migraine, unspecified, with intractable migraine, so stated, without mention of status migrainosus Migraine Obstructive sleep apnea syndrome, severe with associated hypoxemia. patient declined to schedule follow up testing for CPAP Unspecified essential hypertension PAST SURGICAL HISTORY Procedure Laterality Date CHOLECYSTECTOMY 10/03 Cholecystectomy COLONOSCOPY FLX DX W/COLLJ SPEC WHEN PFRMD 12/10/2017 Colonoscopy ESOPHAGOGASTRODUODENOSCOPY TRANSORAL DIAGNOSTIC EGD ESOPHAGOGASTRODUODENOSCOPY TRANSORAL DIAGNOSTIC 12/10/2017 EGD PAST SURGICAL HISTORY OF trigger finger PAST SURGICAL HISTORY OF heel spur PAST SURGICAL HISTORY OF carpal tunnel PAST SURGICAL HISTORY OF 03/09/12 endovenous laser ablation of L great saphenous vein, small saphenous vein and vein of Giacomini ALLERGIES Lisinopril, Pravastatin, and Zithromax [Azithromycin] MEDICATIONS sulfamethoxazole-trimethoprim (BACTRIM DS) 800-160 mg per tablet Take 1 tablet by mouth two times aday for 7 days. fluconazole (DIFLUCAN) 150 mg tablet Take 1 tablet by mouth one time only for 1 dose. Repeat in 3 days as needed. diclofenac, EC, (VOLTAREN) 75 mg EC tablet Take 1 tablet by mouth two times a day. amoxicillin-clavulanate potassium (AUGMENTIN) 875-125 mg per tablet Take 1 tablet by mouth two times a day. doxycycline monohydrate (MONODOX) 100 mg capsule Take 1 capsule by mouth two times a day. sulfaSALAzine (AZULFIDINE) 500 mg tablet Take 500 mg every morning and 1000mg every evening losartan (COZAAR) 100 mg tablet Take 1 tablet by mouth once daily. buPROPion XL (WELLBUTRIN XL) 150 mg 24 hr tablet Take 1 tablet by mouth once daily. topiramate (TOPAMAX) 100 mg tablet Take 1 tablet by mouth every evening. levothyroxine (SYNTHROID) 100 mcg tablet Take 1 tablet by mouth daily before breakfast. levothyroxine (SYNTHROID) 100 mcg tablet Take 1 tablet by mouth daily before breakfast. ezetimibe (ZETIA) 10 mg tablet Take 1 tablet by mouth once daily. cholecalciferol (VITAMIN D3) 5,000 unit tab Take 1 tablet by mouth once daily. sertraline (ZOLOFT) 100 mg tablet Take 1 tablet by mouth once daily. Forgot Rx when traveling, do not cancel [facility] Rx topiramate (TOPAMAX) 50 mg tablet Take 1 tablet by mouth daily at bedtime. lansoprazole (PREVACID) 30 mg capsule Take 1 capsule by mouth once daily. hydrOXYchloroQUINE (PLAQUENIL) 200 mg tablet Take 1 tablet by mouth two times a day. folic acid 1 mg tablet Take 2 tablets by mouth once daily. metFORMIN ER (GLUCOPHAGE XR) 500 mg 24 hr tablet Take 1 tablet by mouth daily with breakfast. Forgot Rx when traveling, do not cancel [facility] Rx mometasone (ELOCON) 0.1 % cream Apply 1 application to affected area once daily. omega-3 acid ethyl esters (LOVAZA) 1 gram capsule TAKE 2 CAPSULES ONCE DAILY MV with Mcv-Fdjavitd-Jmwzfi (CENTRUM SILVER) 0.4-300-250 mg-mcg-mcg tab Take 1 tablet by mouth oncedaily. FAMILY HISTORY Problem Relation Age of Onset Diabetes Mother Alzheimer's Disease Mother other (Polycythmeia vera) Father Breast Cancer Sister bilateral mastectomy other (HOCM with myocardial bridge) Sister Alzheimer's Disease Maternal Grandmother Heart Maternal Grandfather Cancer Paternal Grandfather Lung Alzheimer's Disease Maternal Aunt Alzheimer's Disease Maternal Uncle Alzheimer's Disease Maternal Uncle Social History Tobacco Use Smoking status: Former Current packs/day: 0.00 Average packs/day: 0.5 packs/day for 20.0 years (10.0 ttl pk-yrs) Types: Cigarettes Start date: 04/22/1989 Quit date: 04/22/2009 Years since quittin.5 Smokeless tobacco: Never Vaping Use Vaping status: Never Used Substance Use Topics Alcohol use: No Drug use: No PHYSICAL EXAM BP 142/78 Pulse 80 Resp 16 Wt 128.4 kg (283 lb) SpO2 97% BMI 43.03 kg/m General Appearance: well appearing, in no acute distress, alert Skin: right hand with 3 scabbed over puncture areas. All tender. The area to dorsal side of had with surrounding redness, small amount of edema, serosanguinous drainage and increased warmth, no read streaking. Eyes: conjunctiva pink and moist, no icterus, sclera white, non-injected Lungs: Lungs clear to auscultation. No wheezing, rhonchi, rales. Heart: RRR without murmur, gallop, or rubs. No ectopy BUE: No deformities, clubbing or cyanosis. Good capillary refill. Pulses palpable Health maintenance reviewed with patient: Anxiety Screening Never done BP Controlled (<130/80) Never done Shingrix Vaccine(1 of 2) Never done Cervical Cancer Screening due on 08/11/2018 Covid-19 Vaccine(2023- season) due on 01/30/2024 Mammogram Screening due on 12/14/2024 Annual PCP Team Chronic Disease Visit due on 10/16/2025 Diabetes Screening due on 06/26/2027 Colorectal Cancer Screening due on 12/11/2027 Lipid Screening due on 10/19/2029 DTaP,Tdap,Td Vaccine(4 - Td or Tdap) due on 05/11/2033 Influenza Vaccine Completed Hepatitis C Screening Completed HIV Screening Completed Pneumococcal Vaccine: 50+ Completed DATA REVIEWED: Most recent labs Assessment/Plan 1. Cellulitis of right hand (L03.113) 2. Cat bite, subsequent encounter (W55.01XD) - Recent cat bite on right hand, initially treated with Augmentin for 7 days and Doxycycline for 10days; completed both courses. - Exam reveals erythema, warmth, and purulent drainage; no fluctuation noted - Initiated Bactrim therapy. - Advised patient to monitor for fever, chills, increased erythema, or swelling; instructed to go to the ER if these symptoms occur. - Follow-up scheduled for Wednesday at 14:40 to assess response to Bactrim. - If no improvement, will consider adding additional antibiotic therapy. - Prescribed Diflucan for yeast infection secondary to antibiotic use. - Recommended starting a probiotic and consuming yogurt to mitigate antibiotic- associated diarrhea. - Prescriptions sent to [facility] pharmacy. 3. Other fatigue (R53.83) - Patient reports increased fatigue, possibly related to recent inactivity due to hand injury. - No signs of systemic infection on exam; vital signs stable. - Will reassess fatigue during follow-up on Wednesday. Prescription instructions reviewed with patient as applicable. Potential red flag symptoms discussed with the patient. Reviewed appropriate action plan to take if red flag symptoms occur. Patient agreeable to treatment plan. Mattie Somers APRN.ELDER documented in this encounterRegency [facility]05-19-2025 Instructions* Patient Instructions* David Chicas MD - 10/16/2024 12:29 PM EDT documented in this encounterRegency Hospital Company05-19-2025 NoteHNO ID: [id number] Author: DAVID CHICAS MD Service: ? Author Type: Physician Type: Progress Notes Filed: 10/16/2024 12:49 Note Text: Reason for Visit Cat bite VIKTORIA Ng is a 59-year-old female presenting with a cat bite on her right hand that has worsened since the initial injury. Berenice was bitten by her cat, Bautista, on her right hand 3 days ago. She initially cleaned the wound with peroxide and then presented to the ER within 20 minutes, where the wound was cleaned with a washcloth and soap. She was prescribed Augmentin, which she has been taking BID as directed. She reports that the redness started last night and has since spread up to her wrist. She also notes significant swelling and pain in her index and middle fingers, with limited range of motion. She has been keeping the wound covered and applying Neosporin as instructed. Social History Tobacco Use Smoking status: Former Current packs/day: 0.00 Average packs/day: 0.5 packs/day for 20.0 years (10.0 ttl pk-yrs) Types: Cigarettes Start date: 04/22/1989 Quit date: 04/22/2009 Years since quittin.4 Smokeless tobacco: Never Vaping Use Vaping status: Never Used Substance Use Topics Alcohol use: No Drug use: No Past medical history, appointments, medications, allergies reviewed. Pertinent Lab/Diagnostic Studies are reviewed and discussed today Current Outpatient Medications: amoxicillin-clavulanate potassium (AUGMENTIN) 875-125 mg per tablet sulfaSALAzine (AZULFIDINE) 500 mg tablet losartan (COZAAR) 100 mg tablet buPROPion XL (WELLBUTRIN XL) 150 mg 24 hr tablet topiramate (TOPAMAX) 100 mg tablet levothyroxine (SYNTHROID) 100 mcg tablet levothyroxine (SYNTHROID) 100 mcg tablet ezetimibe (ZETIA) 10 mg tablet cholecalciferol (VITAMIN D3) 5,000 unit tab sertraline (ZOLOFT) 100 mg tablet topiramate (TOPAMAX) 50 mg tablet lansoprazole (PREVACID) 30 mg capsule hydrOXYchloroQUINE (PLAQUENIL) 200 mg tablet folic acid 1 mg tablet metFORMIN ER (GLUCOPHAGE XR) 500 mg 24 hr tablet mometasone (ELOCON) 0.1 % cream diclofenac, EC, (VOLTAREN) 75 mg EC tablet omega-3 acid ethyl esters (LOVAZA) 1 gram capsule MV with Yiw-Dautsgbg-Jtefzq (CENTRUM SILVER) 0.4-300-250 mg-mcg-mcg tab doxycycline monohydrate (MONODOX) 100 mg capsule Health Maintenance Anxiety Screening BP Controlled (<130/80) Shingrix Vaccine(1 of 2) Cervical Cancer Screening Covid-19 Vaccine(6 - 2024-25 season)@ Review Of Systems Musculoskeletal: (+) finger pain, (+) finger swelling, (+) limited range of motion Skin: (+) finger redness, (+) purulent discharge Psychiatric: (+) low mood Physical Exam BP 147/82 Pulse 82 Resp 16 Wt 130.2 kg (287 lb 0.6 oz) SpO2 96% BMI 43.64 kg/m? GENERAL: NAD, alert and oriented. SKIN: Erythema and significant swelling noted on the affected hand. Pus present at the site of the cat bite. HEAD: Normocephalic. EYES: PERRLA, EOMI, conjunctiva clear. LUNGS: Clear to auscultation bilaterally, no wheezes/rhonchi/rales. HEART: Regular rate and rhythm, no murmurs. No ectopy. EXTREMITIES: Significant swelling and erythema noted on the affected hand. Limited range of motion due to pain. Pulses palpable. NEURO: Awake, alert and oriented x3, cranial nerves II-XII grossly intact, normal gait, no involuntary motions. Assessment and Plan 1. Cat bite, subsequent encounter (W55.01XD) Cellulitis of right hand (L03.113) Significant swelling, erythema, and purulent discharge noted on the right hand. Limited range of motion due to pain and tightness. Patient has been on Augmentin for three days with minimal improvement. Concerns for potential compartment syndrome due to swelling and deep infection. - Initiated Doxycycline in addition to current Augmentin therapy. - Advised patient to take NSAIDs such as Motrin or Tylenol for pain management. - Educated patient on signs of worsening condition, including increased pain, swelling, or erythema, and instructed to seek immediate medical attention if symptoms do not improve within 24 hours or worsen. - Advised to keep the wound open to air, avoiding contamination from pets or dust. - Patient to keep me updated on progress. Voice recognition software was used to compose this office note. Please excuse any unintended typographical errors. Recording using ambient Tracky software for draft documentation of the visit was discussed with the patient/authorized patient representative; all questions welcomed and answered. Patient/authorized patient representative agreed to proceed David Chicas [facility]05-19-2025 History of Present illness Narrative* David Chicas MD - 10/16/2024 12:18 PM EDT Reason for Visit Cat bite VIKTORIA Ng is a 59-year-old female presenting with a cat bite on her right hand that has worsened sincethe initial injury. Berenice was bitten by her cat, Bautista, on her right hand 3 days ago. She initially cleaned the woundwith peroxide and then presented to the ER within 20 minutes, where the wound was cleaned with a washcloth and soap. She was prescribed Augmentin, which she has been taking BID as directed. She reports that the redness started last night and has since spread up to her wrist. She also notes significant swelling and pain in her index and middle fingers, with limited range of motion. She has been keeping the wound covered and applying Neosporin as instructed. Social History Tobacco Use Smoking status: Former Current packs/day: 0.00 Average packs/day: 0.5 packs/day for 20.0 years (10.0 ttl pk-yrs) Types: Cigarettes Start date: 04/22/1989 Quit date: 04/22/2009 Years since quittin.4 Smokeless tobacco: Never Vaping Use Vaping status: Never Used Substance Use Topics Alcohol use: No Drug use: No Past medical history, appointments, medications, allergies reviewed. Pertinent Lab/Diagnostic Studies are reviewed and discussed today Current Outpatient Medications: amoxicillin-clavulanate potassium (AUGMENTIN) 875-125 mg per tablet sulfaSALAzine (AZULFIDINE) 500 mg tablet losartan (COZAAR) 100 mg tablet buPROPion XL (WELLBUTRIN XL) 150 mg 24 hr tablet topiramate (TOPAMAX) 100 mg tablet levothyroxine (SYNTHROID) 100 mcg tablet levothyroxine (SYNTHROID) 100 mcg tablet ezetimibe (ZETIA) 10 mg tablet cholecalciferol (VITAMIN D3) 5,000 unit tab sertraline (ZOLOFT) 100 mg tablet topiramate (TOPAMAX) 50 mg tablet lansoprazole (PREVACID) 30 mg capsule hydrOXYchloroQUINE (PLAQUENIL) 200 mg tablet folic acid 1 mg tablet metFORMIN ER (GLUCOPHAGE XR) 500 mg 24 hr tablet mometasone (ELOCON) 0.1 % cream diclofenac, EC, (VOLTAREN) 75 mg EC tablet omega-3 acid ethyl esters (LOVAZA) 1 gram capsule MV with Cpv-Qlgrusdj-Ygrfsb (CENTRUM SILVER) 0.4-300-250 mg-mcg-mcg tab doxycycline monohydrate (MONODOX) 100 mg capsule Health Maintenance Anxiety Screening BP Controlled (<130/80) Shingrix Vaccine(1 of 2) Cervical Cancer Screening Covid-19 Vaccine( season)@ Review Of Systems Musculoskeletal: (+) finger pain, (+) finger swelling, (+) limited range of motion Skin: (+) finger redness, (+) purulent discharge Psychiatric: (+) low mood Physical Exam BP 147/82 Pulse 82 Resp 16 Wt 130.2 kg (287 lb 0.6 oz) SpO2 96% BMI 43.64 kg/m GENERAL: NAD, alert and oriented. SKIN: Erythema and significant swelling noted on the affected hand. Pus present at the site of the cat bite. HEAD: Normocephalic. EYES: PERRLA, EOMI, conjunctiva clear. LUNGS: Clear to auscultation bilaterally, no wheezes/rhonchi/rales. HEART: Regular rate and rhythm, no murmurs. No ectopy. EXTREMITIES: Significant swelling and erythema noted on the affected hand. Limited range of motion due to pain. Pulses palpable. NEURO: Awake, alert and oriented x3, cranial nerves II-XII grossly intact, normal gait, no involuntary motions. Assessment and Plan 1. Cat bite, subsequent encounter (W55.01XD) Cellulitis of right hand (L03.113) Significant swelling, erythema, and purulent discharge noted on the right hand. Limited range of motion due to pain and tightness. Patient has been on Augmentin for three days with minimal improvement. Concerns for potential compartment syndrome due to swelling and deep infection. - Initiated Doxycycline in addition to current Augmentin therapy. - Advised patient to take NSAIDs such as Motrin or Tylenol for pain management. - Educated patient on signs of worsening condition, including increased pain, swelling, or erythema, and instructed to seek immediate medical attention if symptoms do not improve within 24 hours or worsen. - Advised to keep the wound open to air, avoiding contamination from pets or dust. - Patient to keep me updated on progress. Voice recognition software was used to compose this office note. Please excuse any unintended typographical errors. Recording using ambient Tracky software for draft documentation of the visit was discussed with the patient/authorized patient representative; all questions welcomed and answered. Patient/authorized patient representative agreed to proceed David Chicas MD documented in this encounterRegency Hospital Company05-13-2025 NotePatient Outreach (INTMMN) BERENICE GIVENS ([id number]) 1965 F Date Time Provider Department 10/10/24 DAVID CHICAS During your visit today, we recorded the following information about you: Allergies As of Date: 10/10/2024 Noted Allergy Reaction LISINOPRIL 06/04/2011 5 - Intolerance Comments: sleepy PRAVASTATIN 06/30/2013 15 - Contraindication-Medical Bear* Comments: myositis ZITHROMAX (AZITHROMYCIN) 01/19/2008 Comments: Abdominal cramping Date Reviewed: 07/27/2024 Reviewed by: Mattie Somers APRN.CUSTOM APPLICATOR - Fully Assessed Visit Diagnosis:Hyperlipidemia [E78.5] Order(s):LIPID PANEL, FASTING [SQLIPB] Order #: [id number] FUTURE Prescriptions as of 10/13/2024 - sulfaSALAzine (AZULFIDINE) 500 mg tablet Take 500 mg every morning and 1000mg every evening - losartan (COZAAR) 100 mg tablet Take 1 tablet by mouth once daily. - buPROPion XL (WELLBUTRIN XL) 150 mg 24 hr tablet Take 1 tablet by mouth once daily. - topiramate (TOPAMAX) 100 mg tablet Take 1 tablet by mouth every evening. - levothyroxine (SYNTHROID) 100 mcg tablet Take 1 tablet by mouth daily before breakfast. - levothyroxine (SYNTHROID) 100 mcg tablet Take 1 tablet by mouth daily before breakfast. - ezetimibe (ZETIA) 10 mg tablet Take 1 tablet by mouth once daily. - cholecalciferol (VITAMIN D3) 5,000 unit tab Take 1 tablet by mouth once daily. - sertraline (ZOLOFT) 100 mg tablet Take 1 tablet by mouth once daily. Forgot Rx when traveling, do not cancel [facility] Rx - topiramate (TOPAMAX) 50 mg tablet Take 1 tablet by mouth daily at bedtime. - lansoprazole (PREVACID) 30 mg capsule Take 1 capsule by mouth once daily. - hydrOXYchloroQUINE (PLAQUENIL) 200 mg tablet Take 1 tablet by mouth two times a day. - folic acid 1 mg tablet Take 2 tablets by mouth once daily. - metFORMIN ER (GLUCOPHAGE XR) 500 mg 24 hr tablet Take 1 tablet by mouth daily with breakfast. Forgot Rx when traveling, do not cancel [facility] Rx - mometasone (ELOCON) 0.1 % cream Apply 1 application to affected area once daily. - diclofenac, EC, (VOLTAREN) 75 mg EC tablet Take 1 tablet by mouth twice daily. - omega-3 acid ethyl esters (LOVAZA) 1 gram capsule TAKE 2 CAPSULES ONCE DAILY - MV with Iap-Uqmunqbc-Qpxzzv (CENTRUM SILVER) 0.4-300-250 mg-mcg-mcg tab Take 1 tablet by mouth once daily. Problem List As Of Date 10/10/2024 Noted Resolved DISC LUP ERYTHEMATOS LID [H01.129] 05/18/2005 CHOLECYSTITIS SEE ALSO GALLBLADDER CHRONIC [K*10/12/2005 Hypothyroidism [E03.9] 11/06/2005 Lupus erythematosus [L93.0] 11/06/2005 Essential hypertension [I10] DEPRESSIVE DISORDER NEC [F32.89] ABDOMINAL PAIN EPIGASTRIC [R10.13] ACUTE GASTRITIS W/O HEMORRHAGE [K29.00] 11/13/2008 DIAPHRAGMATIC HERNIA [K44.9] 11/13/2008 Hyperglycemia [R73.9] 06/04/2011 Statin myopathy [G72.0, T46.6X5A] 07/11/2013 Hyperlipidemia [E78.5] 07/13/2013 Morbid obesity (HCC) [E66.01] 09/16/2016 Prediabetes [R73.03] 09/16/2016 Encounter for long-term (current) use of medica*11/22/2017 Encounter for screening for malignant neoplasm *11/22/2017 Gastroesophageal reflux disease [K21.9] 11/22/2017 Tibialis tendinitis of both lower extremities [*06/27/2018 Peroneal tendinitis of both lower legs [M76.71,*06/27/2018 Migraine without aura and without status migrai*05/28/2021 Cigarette smoker [F17.210] 06/27/2021 08/26/2021 WHITNEY (dyspnea on exertion) [R06.09] 06/27/2021 Obstructive sleep apnea syndrome [G47.33] 06/27/2021 Renal colic [N23] 06/27/2021 Tobacco dependence in remission [F17.201] 06/27/2021 Obesity, Class III, BMI >= 40 [E66.813] 06/27/2021 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 Author Type: Physician Type: Progress Notes Filed: 09/20/2024 14:52 Note Text: On 09/20/2024, I had the pleasure of evaluating Berenice Givens in a follow-up [facility] Rheumatology appointment for inflammatory arthritis. This Team Access Model visit is a virtual encounter utilizing both video and audio components. It required patient-provider interaction for the medical decision making as documented below. My name and active licensure have been communicated. The patient's identity and physical location were verified at the time of this visit. Either the patient or their legal patient representative has been informed of the risks and benefits of -- and alternatives to -- treatment through a remote evaluation and consents to proceed with the evaluation remotely. HPI: To review, Berenice Givens is a 59 year old female (goes by Kate) - At age 23, noted onset of malar rash (which was incorrectly diagnosed and managed as acne x1 year), joint pain (including knees), photosensitivity and mouth sores. Diagnosed with SLE. Was initially treated with injections (she's guessing of steroids), which stopped as it got to be too much (would have 18 facial injections at a time) - In , started on HCQ with significant improvement in rash and joint pain - In November, reported pain in the R 2nd MCP, bilateral DIPs, hips, knees, ankles, low back and neck. Had injections of the spine, neck helped more than low back but low back injections helped a little. PT done in for tibialis tendinitis of both ankles without relief. Most concerning area of pain was the low back, ankles and hands. - In Jan, reported diclofenac PO which works a lot better for her than tylenol. Increased HCQ dose given US synovitis and pain in the bilateral wrists and MCPs, some in the PIPs - In May, reported some improvement with higher HCQ dose - In Feb, reported things were going well with the higher HCQ dose. Recently injured back after picking something up, on the mend. - In Feb, reported arthritis was ok. Some pain in the wrists/MCPs - Apr US with active synovitis - In May, reported continued pain in the wrists and MCPs. She thought she was to increase to HCQ 3 tabs/day so had been doing that without improvement. With blurry vision. Advised to decrease the HCQ dose back down. Started on SSZ goal 1g/day - Today, reports doing ok. Hasn't noticed any improvement in the joints. - Last plaquenil eye exam normal in September PAST MEDICAL HISTORY Diagnosis Date Abdominal pain, epigastric Cigarette smoker 06/27/2021 Depressive disorder, not elsewhere classified Diaphragmatic hernia without mention of obstruction or gangrene Lupus erythematosus Migraine, unspecified, with intractable migraine, so stated, without mention of status migrainosus Migraine Obstructive sleep apnea syndrome, severe with associated hypoxemia. patient declined to schedule follow up testing for CPAP Unspecified essential hypertension GERD PAST SURGICAL HISTORY Procedure Laterality Date CHOLECYSTECTOMY 10/03 Cholecystectomy COLONOSCOPY FLX DX W/COLLJ SPEC WHEN PFRMD 12/10/2017 Colonoscopy ESOPHAGOGASTRODUODENOSCOPY TRANSORAL DIAGNOSTIC EGD ESOPHAGOGASTRODUODENOSCOPY TRANSORAL DIAGNOSTIC 12/10/2017 EGD PAST SURGICAL HISTORY OF trigger finger PAST SURGICAL HISTORY OF heel spur PAST SURGICAL HISTORY OF carpal tunnel PAST SURGICAL HISTORY OF 03/09/12 endovenous laser ablation of L great saphenous vein, small saphenous vein and vein of Giacomini ALLERGIES Allergen Reactions Lisinopril Intolerance sleepy Pravastatin Contraindication-Medical Surgical myositis Zithromax [Azithrom* Abdominal cramping MEDICATIONS: Current Outpatient Medications Medication Sig sulfaSALAzine (AZULFIDINE) 500 mg tablet Take 500 mg twice/day losartan (COZAAR) 100 mg tablet Take 1 tablet by mouth once daily. buPROPion XL (WELLBUTRIN XL) 150 mg 24 hr tablet Take 1 tablet by mouth once daily. topiramate (TOPAMAX) 100 mg tablet Take 1 tablet by mouth every evening. levothyroxine (SYNTHROID) 100 mcg tablet Take 1 tablet by mouth daily before breakfast. levothyroxine (SYNTHROID) 100 mcg tablet Take 1 tablet by mouth daily before breakfast. ezetimibe (ZETIA) 10 mg tablet Take 1 tablet by mouth once daily. cholecalciferol (VITAMIN D3) 5,000 unit tab Take 1 tablet by mouth once daily. sertraline (ZOLOFT) 100 mg tablet Take 1 tablet by mouth once daily. Forgot Rx when traveling, do not cancel [facility] Rx topiramate (TOPAMAX) 50 mg tablet Take 1 tablet by mouth daily at bedtime. lansoprazole (PREVACID) 30 mg capsule Take 1 capsule by mouth once daily. hydrOXYchloroQUINE (PLAQUENIL) 200 mg tablet Take 1 tablet by mouth two times a day. folic acid 1 mg tablet Take 2 tablets by mouth once daily. metFORMIN ER (GLUCOPHAGE XR) 500 mg (more content not included)...[facility]04-21-2025 Telephone encounter Note* Telephone Encounter - Jodie Valerio MA - 09/18/2024 8:19 AM EDT Patient has been identified by name and date of : Yes RX INSTRUCTIONS: Patient aware RX will be sent to pharmacy. No need to notify patient. LAST APPOINTMENT: 03/27/2024 UPCOMING APPOINTMENT: 09/20/2024 LABS: Hemoglobin (g/dL) Date Value 08/25/2024 13.2 05/09/2021 13.9 Hematocrit (%) Date Value 08/25/2024 40.9 05/09/2021 42.9 WBC (k/uL) Date Value 08/25/2024 7.56 05/09/2021 8.71 Platelet Count (k/uL) Date Value 08/25/2024 230 05/09/2021 264 AST Date Value Ref Range Status 08/25/2024 35 13 - 35 U/L Final ALT Date Value Ref Range Status 08/25/2024 35 7 - 38 U/L Final Creatinine Date Value Ref Range Status 08/25/2024 0.85 0.58 - 0.96 mg/dL Final No results found for: URICACID Jodie Valerio MA [facility]04-21-2025 Miscellaneous Notes* Telephone Encounter - Jodie Valerio MA - 09/18/2024 8:19 AM EDT Patient has been identified by name and date of : Yes RX INSTRUCTIONS: Patient aware RX will be sent to pharmacy. No need to notify patient. LAST APPOINTMENT: 03/27/2024 UPCOMING APPOINTMENT: 09/20/2024 LABS: Hemoglobin (g/dL) Date Value 08/25/2024 13.2 05/09/2021 13.9 Hematocrit (%) Date Value 08/25/2024 40.9 05/09/2021 42.9 WBC (k/uL) Date Value 08/25/2024 7.56 05/09/2021 8.71 Platelet Count (k/uL) Date Value 08/25/2024 230 05/09/2021 264 AST Date Value Ref Range Status 08/25/2024 35 13 - 35 U/L Final ALT Date Value Ref Range Status 08/25/2024 35 7 - 38 U/L Final Creatinine Date Value Ref Range Status 08/25/2024 0.85 0.58 - 0.96 mg/dL Final No results found for: URICACID Jodie Valerio MA documented in this encounterRegency Hospital Company04-14-2025 Telephone encounter Note * Telephone Encounter - Fatimah Sunshine LPN - 09/11/2024 3:45 PM EDT Duplicate request for Levothyroxine. Fatimah Sunshine LPN [facility]04-14-2025 Miscellaneous Notes* Telephone Encounter - Fatimah Sunshine LPN - 09/11/2024 3:45 PM EDT Duplicate request for Levothyroxine. Fatimah Sunshine LPN documented in this encounterRegency Hospital Company04-09-2025 Telephone encounter Note * Telephone Encounter - Marybeth Stringer LPN - 09/06/2024 11:43 AM EDT Prescription Refill Information The patient has been identified by name and date of : Yes Caregiver verified no other encounters exist for this prescription request: Yes Caregiver confirmed with patient/requestor that no other refills are due, in the near future, with this provider at this time: Yes The last office visit in the department: 07/27/24 Does the patient have a future office visit with this provider/department: Yes Requested Prescriptions Pending Prescriptions Disp Refills losartan (COZAAR) 100 mg tablet 90 tablet 3 Sig: Take 1 tablet by mouth once daily. Marybeth Stringer LPN September 06, 2024 11:44 AM [facility]04-09-2025 Miscellaneous Notes* Telephone Encounter - Marybeth Stringer LPN - 09/06/2024 11:43 AM EDT Prescription Refill Information The patient has been identified by name and date of : Yes Caregiver verified no other encounters exist for this prescription request: Yes Caregiver confirmed with patient/requestor that no other refills are due, in the near future, with this provider at this time: Yes The last office visit in the department: 07/27/24 Does the patient have a future office visit with this provider/department: Yes Requested Prescriptions Pending Prescriptions Disp Refills losartan (COZAAR) 100 mg tablet 90 tablet 3 Sig: Take 1 tablet by mouth once daily. Marybeth Stringer LPN September 06, 2024 11:44 AM * Telephone Encounter - Smiley Silveira RN - 09/06/2024 9:41 AM EDT Patient requesting refills as follows: Requested Prescriptions Pending Prescriptions Disp Refills losartan (COZAAR) 100 mg tablet 90 tablet 3 Sig: Take 1 tablet by mouth once daily. Please review and advise. Smiley Silveira RN [facility] Telephone encounter Note * Telephone Encounter - Smiley Silveira RN - 09/06/2024 9:41 AM EDT Patient requesting refills as follows: Requested Prescriptions Pending Prescriptions Disp Refills losartan (COZAAR) 100 mg tablet 90 tablet 3 Sig: Take 1 tablet by mouth once daily. Please review and advise. Smiley Silveira RN [facility]03-17-2025 Telephone encounter Note* Telephone Encounter - Jodie Valerio MA - 08/14/2024 8:48 AM EDT Patient has been identified by name and date of : Yes RX INSTRUCTIONS: Patient aware RX will be sent to pharmacy. No need to notify patient. LAST APPOINTMENT: 03/27/2024 UPCOMING APPOINTMENT: 09/20/2024 LABS: Hemoglobin (g/dL) Date Value 07/24/2024 13.2 05/09/2021 13.9 Hematocrit (%) Date Value 07/24/2024 40.7 05/09/2021 42.9 WBC (k/uL) Date Value 07/24/2024 8.44 05/09/2021 8.71 Platelet Count (k/uL) Date Value 07/24/2024 224 05/09/2021 264 AST Date Value Ref Range Status 07/24/2024 52 (H) 13 - 35 U/L Final ALT Date Value Ref Range Status 07/24/2024 56 (H) 7 - 38 U/L Final Creatinine Date Value Ref Range Status 07/24/2024 0.85 0.58 - 0.96 mg/dL Final No results found for: URICACID Jodie Valerio MA [facility]03-17-2025 Miscellaneous Notes* Telephone Encounter - Jodie Valerio MA - 08/14/2024 8:48 AM EDT Patient has been identified by name and date of : Yes RX INSTRUCTIONS: Patient aware RX will be sent to pharmacy. No need to notify patient. LAST APPOINTMENT: 03/27/2024 UPCOMING APPOINTMENT: 09/20/2024 LABS: Hemoglobin (g/dL) Date Value 07/24/2024 13.2 05/09/2021 13.9 Hematocrit (%) Date Value 07/24/2024 40.7 05/09/2021 42.9 WBC (k/uL) Date Value 07/24/2024 8.44 05/09/2021 8.71 Platelet Count (k/uL) Date Value 07/24/2024 224 05/09/2021 264 AST Date Value Ref Range Status 07/24/2024 52 (H) 13 - 35 U/L Final ALT Date Value Ref Range Status 07/24/2024 56 (H) 7 - 38 U/L Final Creatinine Date Value Ref Range Status 07/24/2024 0.85 0.58 - 0.96 mg/dL Final No results found for: URICACID Jodie Valerio MA documented in this encounterReg[facility]02-27-2025 NoteHNO ID: [id number] Author: MATTIE SOMERS APRN.CUSTOM APPLICATOR Service: ? Author Type: Nurse Practitioner Type: Progress Notes Filed: 07/27/2024 14:44 Note Text: CC: Patient presents with: Recheck: Medication follow up HPI Berenice Givens is a 59 year old female who presents today for follow up. Was started on wellbutrin for ongoing fatigue and weight gain after blood work was unremarkable. Is walking on her treadmill regularly for exercise and has noticed this has decreased her appetite.Has lost 3 pounds as a result of the curb in her appetite. Trying to maintain a healthy diet Sleep: is described as normal Alcohol use: does not drink any alcohol Drug use: No Appetite: good Suicidal Thoughts: No suicidal ideation, intent or plan REVIEW OF SYSTEMS See HPI PAST MEDICAL HISTORY Diagnosis Date Abdominal pain, epigastric Cigarette smoker 06/27/2021 Depressive disorder, not elsewhere classified Diaphragmatic hernia without mention of obstruction or gangrene Lupus erythematosus Migraine, unspecified, with intractable migraine, so stated, without mention of status migrainosus Migraine Obstructive sleep apnea syndrome, severe with associated hypoxemia. patient declined to schedule follow up testing for CPAP Unspecified essential hypertension PAST SURGICAL HISTORY Procedure Laterality Date CHOLECYSTECTOMY 10/03 Cholecystectomy COLONOSCOPY FLX DX W/COLLJ SPEC WHEN PFRMD 12/10/2017 Colonoscopy ESOPHAGOGASTRODUODENOSCOPY TRANSORAL DIAGNOSTIC EGD ESOPHAGOGASTRODUODENOSCOPY TRANSORAL DIAGNOSTIC 12/10/2017 EGD PAST SURGICAL HISTORY OF trigger finger PAST SURGICAL HISTORY OF heel spur PAST SURGICAL HISTORY OF carpal tunnel PAST SURGICAL HISTORY OF 03/09/12 endovenous laser ablation of L great saphenous vein, small saphenous vein and vein of Giacomini ALLERGIES Lisinopril, Pravastatin, and Zithromax [Azithromycin] MEDICATIONS sulfaSALAzine (AZULFIDINE) 500 mg tablet Take 500 mg twice/day topiramate (TOPAMAX) 100 mg tablet Take 1 tablet by mouth every evening. levothyroxine (SYNTHROID) 100 mcg tablet Take 1 tablet by mouth daily before breakfast. levothyroxine (SYNTHROID) 100 mcg tablet Take 1 tablet by mouth daily before breakfast. buPROPion XL (WELLBUTRIN XL) 150 mg 24 hr tablet Take 1 tablet by mouth once daily. ezetimibe (ZETIA) 10 mg tablet Take 1 tablet by mouth once daily. cholecalciferol (VITAMIN D3) 5,000 unit tab Take 1 tablet by mouth once daily. sertraline (ZOLOFT) 100 mg tablet Take 1 tablet by mouth once daily. Forgot Rx when traveling, do not cancel [facility] Rx topiramate (TOPAMAX) 50 mg tablet Take 1 tablet by mouth daily at bedtime. lansoprazole (PREVACID) 30 mg capsule Take 1 capsule by mouth once daily. hydrOXYchloroQUINE (PLAQUENIL) 200 mg tablet Take 1 tablet by mouth two times a day. folic acid 1 mg tablet Take 2 tablets by mouth once daily. metFORMIN ER (GLUCOPHAGE XR) 500 mg 24 hr tablet Take 1 tablet by mouth daily with breakfast. Forgot Rx when traveling, do not cancel [facility] Rx losartan (COZAAR) 100 mg tablet Take 1 tablet by mouth once daily. mometasone (ELOCON) 0.1 % cream Apply 1 application to affected area once daily. diclofenac, EC, (VOLTAREN) 75 mg EC tablet Take 1 tablet by mouth twice daily. omega-3 acid ethyl esters (LOVAZA) 1 gram capsule TAKE 2 CAPSULES ONCE DAILY MV with Yly-Hgkxighr-Vjrufs (CENTRUM SILVER) 0.4-300-250 mg-mcg-mcg tab Take 1 tablet by mouth once daily. FAMILY HISTORY Problem Relation Age of Onset Diabetes Mother Alzheimer's Disease Mother other (Polycythmeia vera) Father Breast Cancer Sister bilateral mastectomy other (HOCM with myocardial bridge) Sister Alzheimer's Disease Maternal Grandmother Heart Maternal Grandfather Cancer Paternal Grandfather Lung Alzheimer's Disease Maternal Aunt Alzheimer's Disease Maternal Uncle Alzheimer's Disease Maternal Uncle Social History Tobacco Use Smoking status: Former Current packs/day: 0.00 Average packs/day: 0.5 packs/day for 20.0 years (10.0 ttl pk-yrs) Types: Cigarettes Start date: 04/22/1989 Quit date: 04/22/2009 Years since quittin.2 Smokeless tobacco: Never Vaping Use Vaping status: Never Used Substance Use Topics Alcohol use: No Drug use: No PHYSICAL EXAM BP 136/80 Pulse 79 Resp 16 Wt 130.2 kg (287 lb) SpO2 97% BMI 43.64 kg/m? Appearance: well dressed well groomed, cooperative, and pleasant Behavior: good eye contact Speech: normal and fluent and coherent Mood: happy Affect: appropriate Perceptions: none Thought process: goal directed Thought Content: normal Intelligence level: normal Insight: good Judgment: good ASSESSMENT/PLAN: 1. Class 3 severe obesity with serious comorbidity and body mass index (BMI) of 40.0 to 44.9 in adult, unspecified obesity type (HCC) - ICD9: 278.01, V85.41, ICD10: E66.813, E66.01, Z68.41 (primary diagnosis) Weight decrea (more content not included)...[facility] [id number] History of Present illness Narrative* Lizbet, MattieCLIFTON.CUSTOM APPLICATOR - 07/27/2024 11:40 AM EST CC: Patient presents with: Recheck: Medication follow up HPI Berenice Givens is a 59 year old female who presents today for follow up. Was started on wellbutrin for ongoing fatigue and weight gain after blood work was unremarkable. Iswalking on her treadmill regularly for exercise and has noticed this has decreased her appetite.Haslost 3 pounds as a result of the curb in her appetite. Trying to maintain a healthy diet Sleep: is described as normal Alcohol use: does not drink any alcohol Drug use: No Appetite: good Suicidal Thoughts: No suicidal ideation, intent or plan REVIEW OF SYSTEMS See HPI PAST MEDICAL HISTORY Diagnosis Date Abdominal pain, epigastric Cigarette smoker 06/27/2021 Depressive disorder, not elsewhere classified Diaphragmatic hernia without mention of obstruction or gangrene Lupus erythematosus Migraine, unspecified, with intractable migraine, so stated, without mention of status migrainosus Migraine Obstructive sleep apnea syndrome, severe with associated hypoxemia. patient declined to schedule follow up testing for CPAP Unspecified essential hypertension PAST SURGICAL HISTORY Procedure Laterality Date CHOLECYSTECTOMY 10/03 Cholecystectomy COLONOSCOPY FLX DX W/COLLJ SPEC WHEN PFRMD 12/10/2017 Colonoscopy ESOPHAGOGASTRODUODENOSCOPY TRANSORAL DIAGNOSTIC EGD ESOPHAGOGASTRODUODENOSCOPY TRANSORAL DIAGNOSTIC 12/10/2017 EGD PAST SURGICAL HISTORY OF trigger finger PAST SURGICAL HISTORY OF heel spur PAST SURGICAL HISTORY OF carpal tunnel PAST SURGICAL HISTORY OF 03/09/12 endovenous laser ablation of L great saphenous vein, small saphenous vein and vein of Giacomini ALLERGIES Lisinopril, Pravastatin, and Zithromax [Azithromycin] MEDICATIONS sulfaSALAzine (AZULFIDINE) 500 mg tablet Take 500 mg twice/day topiramate (TOPAMAX) 100 mg tablet Take 1 tablet by mouth every evening. levothyroxine (SYNTHROID) 100 mcg tablet Take 1 tablet by mouth daily before breakfast. levothyroxine (SYNTHROID) 100 mcg tablet Take 1 tablet by mouth daily before breakfast. buPROPion XL (WELLBUTRIN XL) 150 mg 24 hr tablet Take 1 tablet by mouth once daily. ezetimibe (ZETIA) 10 mg tablet Take 1 tablet by mouth once daily. cholecalciferol (VITAMIN D3) 5,000 unit tab Take 1 tablet by mouth once daily. sertraline (ZOLOFT) 100 mg tablet Take 1 tablet by mouth once daily. Forgot Rx when traveling, do not cancel [facility] Rx topiramate (TOPAMAX) 50 mg tablet Take 1 tablet by mouth daily at bedtime. lansoprazole (PREVACID) 30 mg capsule Take 1 capsule by mouth once daily. hydrOXYchloroQUINE (PLAQUENIL) 200 mg tablet Take 1 tablet by mouth two times a day. folic acid 1 mg tablet Take 2 tablets by mouth once daily. metFORMIN ER (GLUCOPHAGE XR) 500 mg 24 hr tablet Take 1 tablet by mouth daily with breakfast. Forgot Rx when traveling, do not cancel [facility] Rx losartan (COZAAR) 100 mg tablet Take 1 tablet by mouth once daily. mometasone (ELOCON) 0.1 % cream Apply 1 application to affected area once daily. diclofenac, EC, (VOLTAREN) 75 mg EC tablet Take 1 tablet by mouth twice daily. omega-3 acid ethyl esters (LOVAZA) 1 gram capsule TAKE 2 CAPSULES ONCE DAILY MV with Bie-Hiiphkei-Ttqlpm (CENTRUM SILVER) 0.4-300-250 mg-mcg-mcg tab Take 1 tablet by mouth oncedaily. FAMILY HISTORY Problem Relation Age of Onset Diabetes Mother Alzheimer's Disease Mother other (Polycythmeia vera) Father Breast Cancer Sister bilateral mastectomy other (HOCM with myocardial bridge) Sister Alzheimer's Disease Maternal Grandmother Heart Maternal Grandfather Cancer Paternal Grandfather Lung Alzheimer's Disease Maternal Aunt Alzheimer's Disease Maternal Uncle Alzheimer's Disease Maternal Uncle Social History Tobacco Use Smoking status: Former Current packs/day: 0.00 Average packs/day: 0.5 packs/day for 20.0 years (10.0 ttl pk-yrs) Types: Cigarettes Start date: 04/22/1989 Quit date: 04/22/2009 Years since quittin.2 Smokeless tobacco: Never Vaping Use Vaping status: Never Used Substance Use Topics Alcohol use: No Drug use: No PHYSICAL EXAM BP 136/80 Pulse 79 Resp 16 Wt 130.2 kg (287 lb) SpO2 97% BMI 43.64 kg/m Appearance: well dressed well groomed, cooperative, and pleasant Behavior: good eye contact Speech: normal and fluent and coherent Mood: happy Affect: appropriate Perceptions: none Thought process: goal directed Thought Content: normal Intelligence level: normal Insight: good Judgment: good ASSESSMENT/PLAN: 1. Class 3 severe obesity with serious comorbidity and body mass index (BMI) of 40.0 to 44.9 in adult, unspecified obesity type (HCC) - ICD9: 278.01, V85.41, ICD10: E66.813, E66.01, Z68.41 (primary diagnosis) Weight decreasing - Behavioral and pharmacological intervention - increase physical activity and add some light or body weight exercises. - increase low fat protein options throughout the day along with fresh fruit and vegetables 2. Depression with anxiety - ICD9: 300.4, ICD10: F41.8 Controlled - Reviewed concept of neurochemical imbalance wth depression/anxiety, treatment options and benefits of counseling in combination with medication. Also reviewed benefits of sleep hygeine, diet and exercise - Instructed patient to contact office or [id number]-[id number] after-hours promptly should condition worsen or any new symptoms appear. - Counseling Center [facility] and after hours crisis line Prescription instructions reviewed with patient as applicable. Potential red flag symptoms discussed with the patient. Reviewed appropriate action plan to take if red flag symptoms occur. Patient agreeable to treatment plan. aMttie Somers APRN.CNP documented in this encounterReg[facility]02-17-2025 Telephone encounter Note * Telephone Encounter - Emanuel Palomares APRN.CNP - 07/17/2024 8:48 AM EST The following approved medication requests have been transmitted electronically. Requested Prescriptions Signed Prescriptions Disp Refills sulfaSALAzine (AZULFIDINE) 500 mg tablet 60 tablet 0 Sig: Take 500 mg twice/day Authorizing Provider: EMANUEL PALOMARES APRN.CNP [facility]02-17-2025 Miscellaneous Notes* Telephone Encounter - Emanuel Palomares APRN.CNP - 07/17/2024 8:48 AM EST The following approved medication requests have been transmitted electronically. Requested Prescriptions Signed Prescriptions Disp Refills sulfaSALAzine (AZULFIDINE) 500 mg tablet 60 tablet 0 Sig: Take 500 mg twice/day Authorizing Provider: EMANUEL PALOMARES APRN.ELDER * Telephone Encounter - Johnson Dailey MA - 07/17/2024 8:40 AM EST Patient has been identified by name and date of : Yes RX INSTRUCTIONS: Patient aware RX will be sent to pharmacy. No need to notify patient. LAST APPOINTMENT: 03/27/2024 UPCOMING APPOINTMENT: 09/20/2024 LABS: Hemoglobin (g/dL) Date Value 06/22/2024 13.9 05/09/2021 13.9 Hematocrit (%) Date Value 06/22/2024 43.0 05/09/2021 42.9 WBC (k/uL) Date Value 06/22/2024 10.37 05/09/2021 8.71 Platelet Count (k/uL) Date Value 06/22/2024 308 05/09/2021 264 AST Date Value Ref Range Status 06/22/2024 48 (H) 13 - 35 U/L Final ALT Date Value Ref Range Status 06/22/2024 52 (H) 7 - 38 U/L Final Creatinine Date Value Ref Range Status 06/22/2024 0.72 0.58 - 0.96 mg/dL Final No results found for: URICACID Johnson Dailey MA documented in this encounterReg[facility]02-17-2025 Telephone encounter Note * Telephone Encounter - Johnson Dailey MA - 07/17/2024 8:40 AM EST Patient has been identified by name and date of : Yes RX INSTRUCTIONS: Patient aware RX will be sent to pharmacy. No need to notify patient. LAST APPOINTMENT: 03/27/2024 UPCOMING APPOINTMENT: 09/20/2024 LABS: Hemoglobin (g/dL) Date Value 06/22/2024 13.9 05/09/2021 13.9 Hematocrit (%) Date Value 06/22/2024 43.0 05/09/2021 42.9 WBC (k/uL) Date Value 06/22/2024 10.37 05/09/2021 8.71 Platelet Count (k/uL) Date Value 06/22/2024 308 05/09/2021 264 AST Date Value Ref Range Status 06/22/2024 48 (H) 13 - 35 U/L Final ALT Date Value Ref Range Status 06/22/2024 52 (H) 7 - 38 U/L Final Creatinine Date Value Ref Range Status 06/22/2024 0.72 0.58 - 0.96 mg/dL Final No results found for: URICACID Johnson Dailey MA [facility]02-05-[facility]25 History of Present illness Narrative* Eddie Wilson, HIGHWAY PAINTER.CUSTOM APPLICATOR - 07/05/2024 2:30 PM EST Head[facility] Virtual Visit Follow up This visit was conducted as a virtual visit, with patient's permission, via Zoom. It required patient-provider interaction for the medical decision making as documented below. Patient stated name and Patient location [place] I have communicated my name and active licensure. The patient's identity and physical location wereverified at the time of this visit. Either the patient or their legal patient representative has been informed of the risks and benefits of -- and alternatives to -- treatment through a remote evaluation andconsents to proceed with the evaluation remotely. July 05, 2024 Chief Complaint: headache Impression and Plan last visit: 04/04/2024 with me Berenice Givens is a 59 year old year old female, with a history of migraine, post COVID syndrome, tobacco use disorder, CHATO, HTN, hypothyroidism, depression, anxiety, GERD and lupus. Headache frequency is down since restarting Topamax as she is not having severe disabling migraines. Still with headaches at the vertex with typical migrainous features that she will treat with tylenol. Recently diagnosed with shingles, started Valtrex but is having pain- she will contact her providerfor Gabapentin PLAN: Increase Topamax to 150mg, 125mg for week then up to 150mg Interval Headache History: Since the last visit she is doing better Little by little she is getting her smell back from having Covid Headache days per month: 1-2 Headache free days per month: mostly headache Associated Symptoms: Photophobia: yes Phonophobia: yes Current Headache Regimen: Preventative: Topamax 150mg She was having some paresthesias when she initially tapered up on it Abortive: goes to bed sometimes advil or aleve Duration of attacks: 3-4 hours Severity of headaches? Mild and moderate Analgesic Diclofenac (Voltaren, Cataflam, Cambia) Anti-Convulsant Topiramate (Topamax, Trokendi XL, Qudexy) Anti-Depressant and Antipsychotic Bupropion (Wellbutrin) Sertraline (Zoloft) Blood Pressure Amlodipine Lisinopril (Zestril) Losartan (Cozaar) Propranolol (Inderal) Other Medications Dexamethasone (Decadron) Over the Counter Medications Acetaminophen (Tylenol) Acetaminophen/Aspirin/Caffeine (Excedrin, Goody s) Aspirin Ibuprofen (Advil, Motrin) Naproxen sodium (Aleve) Current Outpatient Medications Medication Sig levothyroxine (SYNTHROID) 100 mcg tablet Take 1 tablet by mouth daily before breakfast. levothyroxine (SYNTHROID) 100 mcg tablet Take 1 tablet by mouth daily before breakfast. buPROPion XL (WELLBUTRIN XL) 150 mg 24 hr tablet Take 1 tablet by mouth once daily. sulfaSALAzine (AZULFIDINE) 500 mg tablet 500mg once/day x1 week, then 500mg twice/day thereafter ezetimibe (ZETIA) 10 mg tablet Take 1 tablet by mouth once daily. cholecalciferol (VITAMIN D3) 5,000 unit tab Take 1 tablet by mouth once daily. sertraline (ZOLOFT) 100 mg tablet Take 1 tablet by mouth once daily. Forgot Rx when traveling, do not cancel [facility] Rx topiramate (TOPAMAX) 50 mg tablet Take 1 tablet by mouth daily at bedtime. gabapentin (NEURONTIN) 300 mg capsule Take 1 capsule by mouth three times a day for 10 days. lansoprazole (PREVACID) 30 mg capsule Take 1 capsule by mouth once daily. hydrOXYchloroQUINE (PLAQUENIL) 200 mg tablet Take 1 tablet by mouth two times a day. folic acid 1 mg tablet Take 2 tablets by mouth once daily. metFORMIN ER (GLUCOPHAGE XR) 500 mg 24 hr tablet Take 1 tablet by mouth daily with breakfast. Forgot Rx when traveling, do not cancel [facility] Rx losartan (COZAAR) 100 mg tablet Take 1 tablet by mouth once daily. topiramate (TOPAMAX) 100 mg tablet Take 1 tablet by mouth every evening. mometasone (ELOCON) 0.1 % cream Apply 1 application to affected area once daily. diclofenac, EC, (VOLTAREN) 75 mg EC tablet Take 1 tablet by mouth twice daily. omega-3 acid ethyl esters (LOVAZA) 1 gram capsule TAKE 2 CAPSULES ONCE DAILY MV with Qcz-Zztneboc-Lugnrw (CENTRUM SILVER) 0.4-300-250 mg-mcg-mcg tab Take 1 tablet by mouth oncedaily. No current facility-administered medications for this visit. PAST MEDICAL HISTORY Diagnosis Date Abdominal pain, epigastric Cigarette smoker 06/27/2021 Depressive disorder, not elsewhere classified Diaphragmatic hernia without mention of obstruction or gangrene Lupus erythematosus Migraine, unspecified, with intractable migraine, so stated, without mention of status migrainosus Migraine Obstructive sleep apnea syndrome, severe with associated hypoxemia. patient declined to schedule follow up testing for CPAP Unspecified essential hypertension ALLERGIES Allergen Reactions Lisinopril Intolerance sleepy Pravastatin Contraindication-Medical Surgical myositis Zithromax [Azithrom* Abdominal cramping I have reviewed the Health Status Assessment responses and discussed these with the patient: yes Eddie Wilson APRN.CUSTOM APPLICATOR HEADACHE SCORES: 09/08/2023 03/28/2024 06/28/2024 Headache Questions ER visits since last office visit: 0 0 0 Hospital stays since last office visit 0 0 0 Limited ADLs in the last month: 0 0 0 Days missed from work or school in the last month: 0 0 Days headache pain free in the last month: 10 25 Days per month with ALL of the following symptoms - decreased productivity, light sensitivity and nausea: 6 0 0 Initial improvement of headache after botox injection at last visit: Not applicable, I did not havea botox injection at my last visit Not applicable, I did not have a botox injection at my last visit PRN medication usage in the last month: 12 Patient impression of improvement since last visit: Minimally worse No change Much improved 09/08/2023 03/28/2024 06/28/2024 HIT-6 HIT-6 46 (Little or no impact) 46 (Little or no impact) 36 (Little or no impact) 09/08/2023 03/28/2024 06/28/2024 JL - 2/7 SCORES JL-2 Score 2 3 3 JL-7 Score 7 5 09/08/2023 03/28/2024 06/28/2024 Migraine Specific QOL - Higher scores indicate better HRQL Role Function-Restrictive Transformed Score (range: 0-100) 100 88.57 100 Role Function-Preventive Transformed Score (range: 0-100) 100 100 100 Emotional Function Transformed Score (range: 0-100) 100 100 100 02/26/2022 09/08/2023 06/28/2024 PHQ-9 Score 7 1 6 Review of Systems: Review of system: unchanged from the previous visit (sleep patterns, mood, energy, appetite, stress, exercising). Examination: Vital Signs: There were no vitals taken for this visit. Limited due to the nature of the visit General: well appearing, in no acute distress, well-hydrated, well nourished, alert Pain Behaviors:no pain behaviors observed Neurological: Mental Status: Alert and oriented to person, place and time. Affect is normal and appropriate. Speech is spontaneous and fluent without dysarthria, normal in rate, volume and articulation, and clear,coherent, and relevant. Short and prison memory, cognition and general fund of knowledge are good. Attention span and concentration are excellent. HEENT: Head is normocephalic and features were symmetric. IMPRESSION: Berenice Givens is a 59 year old year old female, with a history of migraine, post COVID syndrome, tobacco use disorder, CHATO, HTN, hypothyroidism, depression, anxiety, GERD and lupus and shingles lastFall. Reports a significant reduction in migraine days with the increase in topamax. PLAN: Continue Topamax Keep track of all medications: This includes the reason for use, side effects and benefits.) MEDICATION TREATMENT: Medications to Start Taking topiramate (TOPAMAX) 100 mg tablet Take 1 tablet by mouth every evening. Follow-up: 6 months . Level of service: Est level 2 (10-19 min). Time spent 19 min on the day of service, which included preparing to see the patient, bujw-ug-bcyu patient care, completing clinical documentation, obtaining and/or reviewing separately obtained history, and ordering medications, tests, or procedures. Eddie Wilson APRN-ELDER Headache Section [facility] Answers submitted by the patient for this visit: Headache Questionnaire (Submitted on 06/28/2024) How many days of work or school have you missed due to headaches in the last month? : 0 In the last month, how many headache days did you experience ALL of the following symptoms: decreased productivity, light sensitivity and nausea?: 0 How many days have you been completely free of headache pain in the last month? : 25 documented in this encounterRegency Hospital Company02-05-2025 NoteHNO ID: [id number] Author: EDDIE WILSON APRN.CNP Service: ? Author Type: Nurse Practitioner Type: Progress Notes Filed: 07/05/2024 14:46 Note Text: [facility] Virtual Visit Follow up This visit was conducted as a virtual visit, with patient's permission, via Zoom. It required patient-provider interaction for the medical decision making as documented below. Patient stated name and Patient location [place] I have communicated my name and active licensure. The patient's identity and physical location were verified at the time of this visit. Either the patient or their legal patient representative has been informed of the risks and benefits of -- and alternatives to -- treatment through a remote evaluation and consents to proceed with the evaluation remotely. July 05, 2024 Chief Complaint: headache Impression and Plan last visit: 04/04/2024 with me Berenice Givens is a 59 year old year old female, with a history of migraine, post COVID syndrome, tobacco use disorder, CHATO, HTN, hypothyroidism, depression, anxiety, GERD and lupus. Headache frequency is down since restarting Topamax as she is not having severe disabling migraines. Still with headaches at the vertex with typical migrainous features that she will treat with tylenol. Recently diagnosed with shingles, started Valtrex but is having pain- she will contact her provider for Gabapentin PLAN: Increase Topamax to 150mg, 125mg for week then up to 150mg Interval Headache History: Since the last visit she is doing better Little by little she is getting her smell back from having Covid Headache days per month: 1-2 Headache free days per month: mostly headache Associated Symptoms: Photophobia: yes Phonophobia: yes Current Headache Regimen: Preventative: Topamax 150mg She was having some paresthesias when she initially tapered up on it Abortive: goes to bed sometimes advil or aleve Duration of attacks: 3-4 hours Severity of headaches? Mild and moderate Analgesic Diclofenac (Voltaren, Cataflam, Cambia) Anti-Convulsant Topiramate (Topamax, Trokendi XL, Qudexy) Anti-Depressant and Antipsychotic Bupropion (Wellbutrin) Sertraline (Zoloft) Blood Pressure Amlodipine Lisinopril (Zestril) Losartan (Cozaar) Propranolol (Inderal) Other Medications Dexamethasone (Decadron) Over the Counter Medications Acetaminophen (Tylenol) Acetaminophen/Aspirin/Caffeine (Excedrin, Goody?s) Aspirin Ibuprofen (Advil, Motrin) Naproxen sodium (Aleve) Current Outpatient Medications Medication Sig levothyroxine (SYNTHROID) 100 mcg tablet Take 1 tablet by mouth daily before breakfast. levothyroxine (SYNTHROID) 100 mcg tablet Take 1 tablet by mouth daily before breakfast. buPROPion XL (WELLBUTRIN XL) 150 mg 24 hr tablet Take 1 tablet by mouth once daily. sulfaSALAzine (AZULFIDINE) 500 mg tablet 500mg once/day x1 week, then 500mg twice/day thereafter ezetimibe (ZETIA) 10 mg tablet Take 1 tablet by mouth once daily. cholecalciferol (VITAMIN D3) 5,000 unit tab Take 1 tablet by mouth once daily. sertraline (ZOLOFT) 100 mg tablet Take 1 tablet by mouth once daily. Forgot Rx when traveling, do not cancel [facility] Rx topiramate (TOPAMAX) 50 mg tablet Take 1 tablet by mouth daily at bedtime. gabapentin (NEURONTIN) 300 mg capsule Take 1 capsule by mouth three times a day for 10 days. lansoprazole (PREVACID) 30 mg capsule Take 1 capsule by mouth once daily. hydrOXYchloroQUINE (PLAQUENIL) 200 mg tablet Take 1 tablet by mouth two times a day. folic acid 1 mg tablet Take 2 tablets by mouth once daily. metFORMIN ER (GLUCOPHAGE XR) 500 mg 24 hr tablet Take 1 tablet by mouth daily with breakfast. Forgot Rx when traveling, do not cancel [facility] Rx losartan (COZAAR) 100 mg tablet Take 1 tablet by mouth once daily. topiramate (TOPAMAX) 100 mg tablet Take 1 tablet by mouth every evening. mometasone (ELOCON) 0.1 % cream Apply 1 application to affected area once daily. diclofenac, EC, (VOLTAREN) 75 mg EC tablet Take 1 tablet by mouth twice daily. omega-3 acid ethyl esters (LOVAZA) 1 gram capsule TAKE 2 CAPSULES ONCE DAILY MV with Xbh-Brwkzvfa-Jjriyj (CENTRUM SILVER) 0.4-300-250 mg-mcg-mcg tab Take 1 tablet by mouth once daily. No current facility-administered medications for this visit. PAST MEDICAL HISTORY Diagnosis Date Abdominal pain, epigastric Cigarette smoker 06/27/2021 Depressive disorder, not elsewhere classified Diaphragmatic hernia without mention of obstruction or gangrene Lupus erythematosus Migraine, unspecified, with intractable migraine, so stated, without mention of status migrainosus Migraine Obstructive sleep apnea syndrome, severe with associated hypoxemia. patient declined to schedule follow up testing for CPAP Unspecified essential hypertension ALLERGIES Allergen Reactions Lisinopril Intoleranc (more content not included)...[facility] 07-03-2024 Miscellaneous Notes* Telephone Encounter - Jenny Chapin MA - 07/03/2024 8:08 AM EST Patient phones requesting refills as follows: Requested Prescriptions Pending Prescriptions Disp Refills levothyroxine (SYNTHROID) 100 mcg tablet 90 tablet 3 Sig: Take 1 tablet by mouth daily before breakfast. levothyroxine (SYNTHROID) 100 mcg tablet 30 tablet 0 Sig: Take 1 tablet by mouth daily before breakfast. Please review and advise. Jenny Chapin MA 90 days to [facility] and 30 day to [facility]. [facility] Telephone encounter Note * Telephone Encounter - Jenny Chapin MA - 07/03/2024 8:08 AM EST Patient phones requesting refills as follows: Requested Prescriptions Pending Prescriptions Disp Refills levothyroxine (SYNTHROID) 100 mcg tablet 90 tablet 3 Sig: Take 1 tablet by mouth daily before breakfast. levothyroxine (SYNTHROID) 100 mcg tablet 30 tablet 0 Sig: Take 1 tablet by mouth daily before breakfast. Please review and advise. Jenny Chapin MA 90 days to [facility] and 30 day to [facility]. [facility]01-30-2025 Telephone encounter Note* Telephone Encounter - Sumi Brown LPN - 06/29/2024 10:41 AM EST Records show a valid rx at the pharmacy. Sumi Brown LPN [facility]01-30-2025 Miscellaneous Notes* Telephone Encounter - Sumi Brown LPN - 06/29/2024 10:41 AM EST Records show a valid rx at the pharmacy. Sumi Brown LPN [facility]25 Telephone encounter Note * Telephone Encounter - Staci Osorio MA - 06/29/2024 10:21 AM EST Patient notified and willing to start Wellbutrin, please send to [facility]. [facility]01-30-2025 Miscellaneous Notes* Telephone Encounter - Staci Osorio MA - 06/29/2024 10:21 AM EST Patient notified and willing to start Wellbutrin, please send to [facility]. * Telephone Encounter - Mattie Somers APRN.CNP - 06/29/2024 9:48 AM EST Blood work overall in acceptable ranges. Does she want to start wellbutrin as discussed in appointment? This is the daily pill antidepressant we use for weight loss that increased motivation and decreases appetite. If so, what pharmacy? Thank you Mattie Somers APRN.CNP [facility] Telephone encounter Note * Telephone Encounter - Mattie Somers APRN.CNP - 06/29/2024 9:48 AM EST Blood work overall in acceptable ranges. Does she want to start wellbutrin as discussed in appointment? This is the daily pill antidepressant we use for weight loss that increased motivation and decreases appetite. If so, what pharmacy? Thank you Mattie Somers APRN.CNP [facility]01-27-2025 NoteHNO ID: [id number] Author: MATTIE SOMERS APRN.CNP Service: ? Author Type: Nurse Practitioner Type: Progress Notes Filed: 06/26/2024 12:16 Note Text: CC: Patient presents with: Recheck: 6 month follow up HPI Berenice Givens is a 59 year old female who presents today for routine follow up. HTN: Ms. Givens denies headache, chest pain, palpitations, dyspnea, and peripheral edema. Patient denies any side effects of her medication(s) and is compliant with their regimen. She does not check BP's generally. Berenice works out regularly 3 times per week with walking on treadmill. She watches her diet for sodium, low fat and low cholesterol most of the time. Last 3 Encounter BP Readings: Date: BP: 06/26/2024 134/82 04/04/2024 132/76 04/01/2024 142/82 CHATO: Uses CPAP nightly with O2 bled in for average of 7 hours nightly. Gets restful sleep with use. Hypothyroidism: Taking medication as ordered. Always feels tired and has difficulty losing weight. Prediabetes: FBS in the 90s. Denies increase in thirst hunger or urination. REVIEW OF SYSTEMS General: no fevers, no chills, no night sweats, no recurrent infections, no change in appetite, no change in energy, and no significant changes in weight Respiratory: no cough, no wheezing, no shortness of breath, no hemoptysis PAST MEDICAL HISTORY Diagnosis Date Abdominal pain, epigastric Cigarette smoker 06/27/2021 Depressive disorder, not elsewhere classified Diaphragmatic hernia without mention of obstruction or gangrene Lupus erythematosus Migraine, unspecified, with intractable migraine, so stated, without mention of status migrainosus Migraine Obstructive sleep apnea syndrome, severe with associated hypoxemia. patient declined to schedule follow up testing for CPAP Unspecified essential hypertension PAST SURGICAL HISTORY Procedure Laterality Date CHOLECYSTECTOMY 10/03 Cholecystectomy COLONOSCOPY FLX DX W/COLLJ SPEC WHEN PFRMD 12/10/2017 Colonoscopy ESOPHAGOGASTRODUODENOSCOPY TRANSORAL DIAGNOSTIC EGD ESOPHAGOGASTRODUODENOSCOPY TRANSORAL DIAGNOSTIC 12/10/2017 EGD PAST SURGICAL HISTORY OF trigger finger PAST SURGICAL HISTORY OF heel spur PAST SURGICAL HISTORY OF carpal tunnel PAST SURGICAL HISTORY OF 03/09/12 endovenous laser ablation of L great saphenous vein, small saphenous vein and vein of Giacomini ALLERGIES Lisinopril, Pravastatin, and Zithromax [Azithromycin] MEDICATIONS sulfaSALAzine (AZULFIDINE) 500 mg tablet 500mg once/day x1 week, then 500mg twice/day thereafter ezetimibe (ZETIA) 10 mg tablet Take 1 tablet by mouth once daily. cholecalciferol (VITAMIN D3) 5,000 unit tab Take 1 tablet by mouth once daily. sertraline (ZOLOFT) 100 mg tablet Take 1 tablet by mouth once daily. Forgot Rx when traveling, do not cancel [facility] Rx topiramate (TOPAMAX) 50 mg tablet Take 1 tablet by mouth daily at bedtime. gabapentin (NEURONTIN) 300 mg capsule Take 1 capsule by mouth three times a day for 10 days. lansoprazole (PREVACID) 30 mg capsule Take 1 capsule by mouth once daily. hydrOXYchloroQUINE (PLAQUENIL) 200 mg tablet Take 1 tablet by mouth two times a day. folic acid 1 mg tablet Take 2 tablets by mouth once daily. metFORMIN ER (GLUCOPHAGE XR) 500 mg 24 hr tablet Take 1 tablet by mouth daily with breakfast. Forgot Rx when traveling, do not cancel [facility] Rx losartan (COZAAR) 100 mg tablet Take 1 tablet by mouth once daily. topiramate (TOPAMAX) 100 mg tablet Take 1 tablet by mouth every evening. levothyroxine (SYNTHROID) 100 mcg tablet TAKE 1 TABLET DAILY ON AN EMPTY STOMACH FOR THYROID mometasone (ELOCON) 0.1 % cream Apply 1 application to affected area once daily. diclofenac, EC, (VOLTAREN) 75 mg EC tablet Take 1 tablet by mouth twice daily. omega-3 acid ethyl esters (LOVAZA) 1 gram capsule TAKE 2 CAPSULES ONCE DAILY MV with Mea-Qdfbpcpr-Crnfoa (CENTRUM SILVER) 0.4-300-250 mg-mcg-mcg tab Take 1 tablet by mouth once daily. FAMILY HISTORY Problem Relation Age of Onset Diabetes Mother Alzheimer's Disease Mother other (Polycythmeia vera) Father Breast Cancer Sister bilateral mastectomy other (HOCM with myocardial bridge) Sister Alzheimer's Disease Maternal Grandmother Heart Maternal Grandfather Cancer Paternal Grandfather Lung Alzheimer's Disease Maternal Aunt Alzheimer's Disease Maternal Uncle Alzheimer's Disease Maternal Uncle Social History Tobacco Use Smoking status: Former Current packs/day: 0.00 Average packs/day: 0.5 packs/day for 20.0 years (10.0 ttl pk-yrs) Types: Cigarettes Start date: 04/22/1989 Quit date: 04/22/2009 Years since quittin.1 Smokeless tobacco: Never Vaping Use Vaping status: Never Used Substance Use Topics Alcohol use: No Drug use: No PHYSICAL EXAM BP 134/82 Pulse 78 Resp 16 Wt 131.5 kg (290 lb) SpO2 97% BMI 44.09 kg/m? General Appearance: well appearing, in no acute distress, alert Eyes (more content not included)...[facility]01-27-2025 History of Present illness Narrative* Mattie Somers APRN.CUSTOM APPLICATOR - 06/26/2024 11:12 AM EST CC: Patient presents with: Recheck: 6 month follow up HPI Berenice Givens is a 59 year old female who presents today for routine follow up. HTN: Ms. Givens denies headache, chest pain, palpitations, dyspnea, and peripheral edema. Patient denies any side effects of her medication(s) and is compliant with their regimen. She does not check BP's generally. Berenice works out regularly 3 times per week with walking on treadmill. She watches her diet for sodium, low fat and low cholesterol most of the time. Last 3 Encounter BP Readings: Date: BP: 06/26/2024 134/82 04/04/2024 132/76 04/01/2024 142/82 CHATO: Uses CPAP nightly with O2 bled in for average of 7 hours nightly. Gets restful sleep with use. Hypothyroidism: Taking medication as ordered. Always feels tired and has difficulty losing weight. Prediabetes: FBS in the 90s. Denies increase in thirst hunger or urination. REVIEW OF SYSTEMS General: no fevers, no chills, no night sweats, no recurrent infections, no change in appetite, no change in energy, and no significant changes in weight Respiratory: no cough, no wheezing, no shortness of breath, no hemoptysis PAST MEDICAL HISTORY Diagnosis Date Abdominal pain, epigastric Cigarette smoker 06/27/2021 Depressive disorder, not elsewhere classified Diaphragmatic hernia without mention of obstruction or gangrene Lupus erythematosus Migraine, unspecified, with intractable migraine, so stated, without mention of status migrainosus Migraine Obstructive sleep apnea syndrome, severe with associated hypoxemia. patient declined to schedule follow up testing for CPAP Unspecified essential hypertension PAST SURGICAL HISTORY Procedure Laterality Date CHOLECYSTECTOMY 10/03 Cholecystectomy COLONOSCOPY FLX DX W/COLLJ SPEC WHEN PFRMD 12/10/2017 Colonoscopy ESOPHAGOGASTRODUODENOSCOPY TRANSORAL DIAGNOSTIC EGD ESOPHAGOGASTRODUODENOSCOPY TRANSORAL DIAGNOSTIC 12/10/2017 EGD PAST SURGICAL HISTORY OF trigger finger PAST SURGICAL HISTORY OF heel spur PAST SURGICAL HISTORY OF carpal tunnel PAST SURGICAL HISTORY OF 03/09/12 endovenous laser ablation of L great saphenous vein, small saphenous vein and vein of Giacomini ALLERGIES Lisinopril, Pravastatin, and Zithromax [Azithromycin] MEDICATIONS sulfaSALAzine (AZULFIDINE) 500 mg tablet 500mg once/day x1 week, then 500mg twice/day thereafter ezetimibe (ZETIA) 10 mg tablet Take 1 tablet by mouth once daily. cholecalciferol (VITAMIN D3) 5,000 unit tab Take 1 tablet by mouth once daily. sertraline (ZOLOFT) 100 mg tablet Take 1 tablet by mouth once daily. Forgot Rx when traveling, do not cancel [facility] Rx topiramate (TOPAMAX) 50 mg tablet Take 1 tablet by mouth daily at bedtime. gabapentin (NEURONTIN) 300 mg capsule Take 1 capsule by mouth three times a day for 10 days. lansoprazole (PREVACID) 30 mg capsule Take 1 capsule by mouth once daily. hydrOXYchloroQUINE (PLAQUENIL) 200 mg tablet Take 1 tablet by mouth two times a day. folic acid 1 mg tablet Take 2 tablets by mouth once daily. metFORMIN ER (GLUCOPHAGE XR) 500 mg 24 hr tablet Take 1 tablet by mouth daily with breakfast. Forgot Rx when traveling, do not cancel [facility] Rx losartan (COZAAR) 100 mg tablet Take 1 tablet by mouth once daily. topiramate (TOPAMAX) 100 mg tablet Take 1 tablet by mouth every evening. levothyroxine (SYNTHROID) 100 mcg tablet TAKE 1 TABLET DAILY ON AN EMPTY STOMACH FOR THYROID mometasone (ELOCON) 0.1 % cream Apply 1 application to affected area once daily. diclofenac, EC, (VOLTAREN) 75 mg EC tablet Take 1 tablet by mouth twice daily. omega-3 acid ethyl esters (LOVAZA) 1 gram capsule TAKE 2 CAPSULES ONCE DAILY MV with Vsi-Cmtzfztf-Uzoeij (CENTRUM SILVER) 0.4-300-250 mg-mcg-mcg tab Take 1 tablet by mouth oncedaily. FAMILY HISTORY Problem Relation Age of Onset Diabetes Mother Alzheimer's Disease Mother other (Polycythmeia vera) Father Breast Cancer Sister bilateral mastectomy other (HOCM with myocardial bridge) Sister Alzheimer's Disease Maternal Grandmother Heart Maternal Grandfather Cancer Paternal Grandfather Lung Alzheimer's Disease Maternal Aunt Alzheimer's Disease Maternal Uncle Alzheimer's Disease Maternal Uncle Social History Tobacco Use Smoking status: Former Current packs/day: 0.00 Average packs/day: 0.5 packs/day for 20.0 years (10.0 ttl pk-yrs) Types: Cigarettes Start date: 04/22/1989 Quit date: 04/22/2009 Years since quittin.1 Smokeless tobacco: Never Vaping Use Vaping status: Never Used Substance Use Topics Alcohol use: No Drug use: No PHYSICAL EXAM BP 134/82 Pulse 78 Resp 16 Wt 131.5 kg (290 lb) SpO2 97% BMI 44.09 kg/m General Appearance: well appearing, in no acute distress, alert Eyes: conjunctiva pink and moist, no icterus, sclera white, non-injected Lungs: Lungs clear to auscultation. No wheezing, rhonchi, rales. Heart: RRR without murmur, gallop, or rubs. No ectopy Health maintenance reviewed with patient: Anxiety Screening Never done BP Controlled (<130/80) Never done Shingrix Vaccine(1 of 2) Never done Cervical Cancer Screening due on 08/11/2018 Covid-19 Vaccine( season) due on 01/30/2024 Mammogram Screening due on 12/14/2024 Annual PCP Team Chronic Disease Visit due on 04/04/2025 Diabetes Screening due on 06/15/2027 Colorectal Cancer Screening due on 12/11/2027 Lipid Screening due on 12/09/2028 DTaP,Tdap,Td Vaccine(4 - Td or Tdap) due on 05/11/2033 Influenza Vaccine Completed Hepatitis C Screening Completed HIV Screening Completed Pneumococcal Vaccine: 50+ Completed DATA REVIEWED: Most recent labs ASSESSMENT/PLAN: 1. Other fatigue - ICD9: 780.79, ICD10: R53.83 (primary diagnosis) Unsure on cause. With her hypothyroidism will check thyroid. If normal will work on weight loss andincreasing physical activity to see if this will improve. - THYROID STIMULATING HORMONE - T4 FREE/FREE THYROXINE - T3, FREE - VITAMIN B12 2. Class 3 severe obesity with serious comorbidity and body mass index (BMI) of 40.0 to 44.9 in adult, unspecified obesity type (HCC) - ICD9: 278.01, V85.41, ICD10: E66.813, E66.01, Z68.41 Stable - Behavioral and pharmacological intervention - need to start with some type of physical activity and regular exercise - if A1c increasing, will recommend glp-1, if not then will start will wellbutrin then if tolerated/not effective consider adipex 3. Hypothyroidism, unspecified type - ICD9: 244.9, ICD10: E03.9 Possibly causing fatigue and difficulty with weight loss - Instructed patient on importance of taking on an empty stomach either first thing in the morning or at bedtime. - THYROID STIMULATING HORMONE - T4 FREE/FREE THYROXINE - T3, FREE 4. Essential hypertension - ICD9: 401.9, ICD10: I10 Suboptimal control - will focus on weight loss to help improve this control - Continue current medications - Recommend home blood pressure monitoring, to bring results to next visit - Encouraged sodium restriction, DASH or Mediterranean diet - Recommend regular aerobic exercise 5. Prediabetes - ICD9: 790.29, ICD10: R73.03 Needs revaluated - HEMOGLOBIN A1C 6. Obstructive sleep apnea syndrome - ICD9: 327.23, ICD10: G47.33 Compliant with cpap therapy and getting restful sleep from use. 7. Vitamin D deficiency - ICD9: 268.9, ICD10: E55.9 - VITAMIN D 25 HYDROXY Prescription instructions reviewed with patient as applicable. Potential red flag symptoms discussed with the patient. Reviewed appropriate action plan to take if red flag symptoms occur. Patient agreeable to treatment plan. Mattie Somers APRN.CNP documented [facility] this encounter[facility]-2025 NoteHNO ID: [id number] Author: DARRELL JACK MD Service: ? Author Type: Physician Type: Progress Notes Filed: 06/21/2024 14:46 Note Text: On 06/21/2024, I had the pleasure of evaluating Berenice Givens in a follow-up [facility] Rheumatology appointment for inflammatory arthritis. This Team Access Model visit is a virtual encounter utilizing both video and audio components. It required patient-provider interaction for the medical decision making as documented below. My name and active licensure have been communicated. The patient's identity and physical location were verified at the time of this visit. Either the patient or their legal patient representative has been informed of the risks and benefits of -- and alternatives to -- treatment through a remote evaluation and consents to proceed with the evaluation remotely. HPI: To review, Berenice Givens is a 59 year old female (goes by Kate) - At age 23, noted onset of malar rash (which was incorrectly diagnosed and managed as acne x1 year), joint pain (including knees), photosensitivity and mouth sores. Diagnosed with SLE. Was initially treated with injections (she's guessing of steroids), which stopped as it got to be too much (would have 18 facial injections at a time) - In , started on HCQ with significant improvement in rash and joint pain - In November, reported pain in the R 2nd MCP, bilateral DIPs, hips, knees, ankles, low back and neck. Had injections of the spine, neck helped more than low back but low back injections helped a little. PT done in for tibialis tendinitis of both ankles without relief. Most concerning area of pain was the low back, ankles and hands. - In Jan, reported diclofenac PO which works a lot better for her than tylenol. Increased HCQ dose given US synovitis and pain in the bilateral wrists and MCPs, some in the PIPs - In May, reported some improvement with higher HCQ dose - In Feb, reported things were going well with the higher HCQ dose. Recently injured back after picking something up, on the mend. - In Feb, reported arthritis was ok. Some pain in the wrists/MCPs - Apr US with active synovitis - Today, reports continued pain in the wrists and MCPs. She thought she was to increase to HCQ 3 tabs/day so has been doing that without improvement. With blurry vision. - Last plaquenil eye exam normal in September PAST MEDICAL HISTORY Diagnosis Date Abdominal pain, epigastric Cigarette smoker 06/27/2021 Depressive disorder, not elsewhere classified Diaphragmatic hernia without mention of obstruction or gangrene Lupus erythematosus Migraine, unspecified, with intractable migraine, so stated, without mention of status migrainosus Migraine Obstructive sleep apnea syndrome, severe with associated hypoxemia. patient declined to schedule follow up testing for CPAP Unspecified essential hypertension GERD PAST SURGICAL HISTORY Procedure Laterality Date CHOLECYSTECTOMY 10/03 Cholecystectomy COLONOSCOPY FLX DX W/COLLJ SPEC WHEN PFRMD 12/10/2017 Colonoscopy ESOPHAGOGASTRODUODENOSCOPY TRANSORAL DIAGNOSTIC EGD ESOPHAGOGASTRODUODENOSCOPY TRANSORAL DIAGNOSTIC 12/10/2017 EGD PAST SURGICAL HISTORY OF trigger finger PAST SURGICAL HISTORY OF heel spur PAST SURGICAL HISTORY OF carpal tunnel PAST SURGICAL HISTORY OF 03/09/12 endovenous laser ablation of L great saphenous vein, small saphenous vein and vein of Giacomini ALLERGIES Allergen Reactions Lisinopril Intolerance sleepy Pravastatin Contraindication-Medical Surgical myositis Zithromax [Azithrom* Abdominal cramping MEDICATIONS: Current Outpatient Medications Medication Sig ezetimibe (ZETIA) 10 mg tablet Take 1 tablet by mouth once daily. cholecalciferol (VITAMIN D3) 5,000 unit tab Take 1 tablet by mouth once daily. sertraline (ZOLOFT) 100 mg tablet Take 1 tablet by mouth once daily. Forgot Rx when traveling, do not cancel [facility] Rx topiramate (TOPAMAX) 50 mg tablet Take 1 tablet by mouth daily at bedtime. gabapentin (NEURONTIN) 300 mg capsule Take 1 capsule by mouth three times a day for 10 days. lansoprazole (PREVACID) 30 mg capsule Take 1 capsule by mouth once daily. hydrOXYchloroQUINE (PLAQUENIL) 200 mg tablet Take 1 tablet by mouth two times a day. folic acid 1 mg tablet Take 2 tablets by mouth once daily. metFORMIN ER (GLUCOPHAGE XR) 500 mg 24 hr tablet Take 1 tablet by mouth daily with breakfast. Forgot Rx when traveling, do not cancel [facility] losartan (COZAAR) 100 mg tablet Take 1 tablet by mouth once daily. topiramate (TOPAMAX) 100 mg tablet Take 1 tablet by mouth every evening. levothyroxine (SYNTHROID) 100 mcg tablet TAKE 1 TABLET DAILY ON AN EMPTY STOMACH FOR THYROID mometasone (ELOCON) 0.1 % cream Apply 1 application to affected area once daily. diclofenac, EC, (VOLTAREN) 75 mg EC tablet Take 1 tablet by mouth twice daily. omega-3 ac (more content not included)...[facility]01-22-2025 History of Present illness Narrative* Darrell Jack MD - 06/21/2024 2:14 PM EST On 06/21/2024, I had the pleasure of evaluating Berenice Givens in a follow-up [facility] Rheumatology appointment for inflammatory arthritis. This Team Access Model visit is a virtual encounter utilizing both video and audio components. It required patient-provider interaction for the medical decision making as documented below. My name and active licensure have been communicated. The patient's identity and physical location were verified at the time of this visit. Either the patient or their legal patient representative has been informed of the risks and benefits of -- and alternatives to -- treatment through a remote evaluation and consents to proceed with the evaluation remotely. HPI: To review, Berenice Givens is a 59 year old female (goes by Kate) - At age 23, noted onset of malar rash (which was incorrectly diagnosed and managed as acne x1 year), joint pain (including knees), photosensitivity and mouth sores. Diagnosed with SLE. Was initiallytreated with injections (she's guessing of steroids), which stopped as it got to be too much (wouldhave 18 facial injections at a time) - In , started on HCQ with significant improvement in rash and joint pain - In November, reported pain in the R 2nd MCP, bilateral DIPs, hips, knees, ankles, low back and neck. Had injections of the spine, neck helped more than low back but low back injections helped a little. PT done in for tibialis tendinitis of both ankles without relief. Most concerning area of pain was the low back, ankles and hands. - In Jan, reported diclofenac PO which works a lot better for her than tylenol. Increased HCQ dose given US synovitis and pain in the bilateral wrists and MCPs, some in the PIPs - In May, reported some improvement with higher HCQ dose - In Feb, reported things were going well with the higher HCQ dose. Recently injured back afterpicking something up, on the mend. - In Feb, reported arthritis was ok. Some pain in the wrists/MCPs - Apr US with active synovitis - Today, reports continued pain in the wrists and MCPs. She thought she was to increase to HCQ 3 tabs/day so has been doing that without improvement. With blurry vision. - Last plaquenil eye exam normal in September PAST MEDICAL HISTORY Diagnosis Date Abdominal pain, epigastric Cigarette smoker 06/27/2021 Depressive disorder, not elsewhere classified Diaphragmatic hernia without mention of obstruction or gangrene Lupus erythematosus Migraine, unspecified, with intractable migraine, so stated, without mention of status migrainosus Migraine Obstructive sleep apnea syndrome, severe with associated hypoxemia. patient declined to schedule follow up testing for CPAP Unspecified essential hypertension GERD PAST SURGICAL HISTORY Procedure Laterality Date CHOLECYSTECTOMY 10/03 Cholecystectomy COLONOSCOPY FLX DX W/COLLJ SPEC WHEN PFRMD 12/10/2017 Colonoscopy ESOPHAGOGASTRODUODENOSCOPY TRANSORAL DIAGNOSTIC EGD ESOPHAGOGASTRODUODENOSCOPY TRANSORAL DIAGNOSTIC 12/10/2017 EGD PAST SURGICAL HISTORY OF trigger finger PAST SURGICAL HISTORY OF heel spur PAST SURGICAL HISTORY OF carpal tunnel PAST SURGICAL HISTORY OF 03/09/12 endovenous laser ablation of L great saphenous vein, small saphenous vein and vein of Giacomini ALLERGIES Allergen Reactions Lisinopril Intolerance sleepy Pravastatin Contraindication-Medical Surgical myositis Zithromax [Azithrom* Abdominal cramping MEDICATIONS: Current Outpatient Medications Medication Sig ezetimibe (ZETIA) 10 mg tablet Take 1 tablet by mouth once daily. cholecalciferol (VITAMIN D3) 5,000 unit tab Take 1 tablet by mouth once daily. sertraline (ZOLOFT) 100 mg tablet Take 1 tablet by mouth once daily. Forgot Rx when traveling, do not cancel [facility] topiramate (TOPAMAX) 50 mg tablet Take 1 tablet by mouth daily at bedtime. gabapentin (NEURONTIN) 300 mg capsule Take 1 capsule by mouth three times a day for 10 days. lansoprazole (PREVACID) 30 mg capsule Take 1 capsule by mouth once daily. hydrOXYchloroQUINE (PLAQUENIL) 200 mg tablet Take 1 tablet by mouth two times a day. folic acid 1 mg tablet Take 2 tablets by mouth once daily. metFORMIN ER (GLUCOPHAGE XR) 500 mg 24 hr tablet Take 1 tablet by mouth daily with breakfast. Forgot Rx when traveling, do not cancel [facility] losartan (COZAAR) 100 mg tablet Take 1 tablet by mouth once daily. topiramate (TOPAMAX) 100 mg tablet Take 1 tablet by mouth every evening. levothyroxine (SYNTHROID) 100 mcg tablet TAKE 1 TABLET DAILY ON AN EMPTY STOMACH FOR THYROID mometasone (ELOCON) 0.1 % cream Apply 1 application to affected area once daily. diclofenac, EC, (VOLTAREN) 75 mg EC tablet Take 1 tablet by mouth twice daily. omega-3 acid ethyl esters (LOVAZA) 1 gram capsule TAKE 2 CAPSULES ONCE DAILY MV with Aju-Fvxesuck-Qfxbbp (CENTRUM SILVER) 0.4-300-250 mg-mcg-mcg tab Take 1 tablet by mouth oncedaily. No current facility-administered medications for this visit. FAMILY HISTORY Problem Relation Age of Onset Diabetes Mother Alzheimer's Disease Mother other (Polycythmeia vera) Father Breast Cancer Sister bilateral mastectomy other (HOCM with myocardial bridge) Sister Alzheimer's Disease Maternal Grandmother Heart Maternal Grandfather Cancer Paternal Grandfather Lung Alzheimer's Disease Maternal Aunt Alzheimer's Disease Maternal Uncle Alzheimer's Disease Maternal Uncle SOCIAL HISTORY: Lives in [place] with spouse. Retired from working at a [employer] Tobacco use: None Alcohol use: None Drug use: None *November Widespread Pain Index: 4 (0-19) Symptoms Severity Scale: 7 (0-12) WPI>7 and SS Scale>5 OR WPI 3-6 and SS Scale >9 consistent with fibromyalgia LABORATORY: Latest Ref Rng 03/27/2024 WBC 3.70 - 11.00 k/uL 9.53 RBC 3.90 - 5.20 m/uL 4.32 Hemoglobin 11.5 - 15.5 g/dL 13.1 Platelet Count 150 - 400 k/uL 269 MPV 9.0 - 12.7 fL 9.8 Absolute nRBC <0.01 k/uL <0.01 Creatinine 0.58 - 0.96 mg/dL 0.83 eGFR >=60 mL/min/1.73m 81 ALT 7 - 38 U/L 48 (H) AST 13 - 35 U/L 46 (H) Component Latest Ref Rng & Units 12/23/2021 Protein, Urine Random 0 - 20 mg/dL 8 Creatinine, Ur Random (UCRR) 20.0 - 300.0 mg/dL 105.4 Protein/Creat Ratio <0.2 0.1 Sm Antibody Negative Negative Anti-Sm <1.0 AI 0.2 CEMENT RUBBER Antibody QUAL Negative Negative Anti-CEMENT RUBBER <1.0 AI 0.9 SSA Antibody Qual Negative Negative Anti-SSA <1.0 AI <0.2 Anti-SSB <1.0 AI <0.2 SSB Antibody Qual Negative Negative CENTROMERE AB QUAL Negative Negative Centromere Ab <1.0 AI <0.2 Scleroderma Ab Qual Negative Negative Scl-70 Abs, EIA <1.0 AI <0.2 ROSEANNE 1 ANTIBODY QUAL Negative Negative Roseanne 1 Antibody <1.0 AI <0.2 Ribosomal CEMENT RUBBER Qualitative Negative Negative Ribosomal CEMENT RUBBER Ab <1.0 AI <0.2 Chromatin Ab Qual Negative Negative Chromatin Ab <1.0 AI <0.2 MARCUS Negative Negative DNA Antibody w/Confirmation <30 IU/mL 22.27 C3 86 - 166 mg/dL 177 (H) C4 13 - 46 mg/dL 28 CRP <0.9 mg/dL 1.1 (H) WSR 0 - 20 mm/hr 30 (H) Rheumatoid Factor <16 IU/mL <10 Hemoglobin/Blood,Ur Negative Negative Component Latest Ref Rng & Units 02/26/2022 CCP Antibody IgG Qualitative Negative Negative CCP Antibody, IgG <20 Units <15 Component Latest Ref Rng & Units 07/16/2014 02/19/2021 05/09/2021 08/13/2021 MARCUS NEGAT Negative MARCUS Titer NEGAT Negative MARCUS Pattern Not applicable for negative result. CCP Antibody, IgG <20 Units <15 Rheumatoid Factor <20 IU/mL <10 WSR 0 - 20 mm/hr 22 (H) CRP <0.9 mg/dL 1.3 (H) PTH, Intact 15 - 65 pg/mL 42 TSH 0.270 - 4.200 mIU/L 0.889 STUDIES: *Apr US wrists/hands- Minimal active synovitis of the wrists, multiple bilateral MCP joints, right PIP joints and left second and third PIP joints *Oct xray feet- BILATERAL PES PLANUS. BILATERAL CALCANEAL ENTHESOPHYTES, LARGER ON THE LEFT. PROGRESSION OF DEGENERATIVE CHANGES OF THE TIBIOTALAR AND TALONAVICULAR JOINT ON THE LEFT. THE RIGHT FOOT IS UNCHANGED *Jan US wrist/hand- MILD SCATTERED ACTIVE SYNOVITIS, DETAILED. L side: 3rd MCP, radiocarpal and carpal joints. R side: 2nd MCP *November xray hands/l-spine- DJD of hands/l-spine *Jan CT chest- No CT evidence of pulmonary embolism. Lung parenchyma and airways: The central airways are patent. A band like opacity noted in the left lower lobe, likely representing subsegmental atelectasis; otherwise the lungs are clear of consolidations. There appears to be a 3 mm nodule in the juxtapleural area in the right upper lobe, series 6 image 51. No masses identified. Pleural space: No pleural effusion or pneumothorax. No pleural thickening. Lower neck, lymph nodes, and mediastinum: The imaged thyroid gland is normal. No lymphadenopathy in the supraclavicular, axillary, mediastinal, or hilar regions. *Apr xray feet- HALLUX VALGUS WITH MIDFOOT DEGENERATIVE CHANGES AND CALCANEAL ENTHESOPHYTES ON THE LEFT. CALCANEAL ENTHESOPHYTE AT THE PLANTAR FASCIA AND ACHILLES TENDON INSERTION ON THE RIGHT WITH EVIDENCE FOR REMOTE LIGAMENT INJURY. TALUS IMPRESSION and PLAN: 1. Inflammatory arthritis: Prior dx of SLE with history of malar rash, photosensitivity, mouth sores and joint pain with significant improvement s/p HCQ initiation, negative [facility] MARCUS by IFA on multiple occasions. Seronegative RA is a possibility too. US with mild synovitis of the wrist and multiple bilateral MCPs. Continued to have wrist and MCP pain bilaterally so increased to HCQ 200mg bid with significant improvement. Apr US with active synovitis as above. - Reviewed the natural history - Start SSZ goal 1g/day (given elevated ALT/AST 40s). Potential side effects were explained including rash, GI upset, bone marrow suppression, and liver toxicity requiring routine lab monitoring. Link with SSZ info sent via . - Continue to HCQ 200mg bid along with routine eye exams, last normal in September 2. Generalized osteoarthritis: Hands (per exam), likely spine, knees. Tylenol alone ineffective - Diclofenac prn - Chiropractor visits - Given referrals to PT and spine clinic in the past 3. General health maintenance: - Completed the covid vaccination series in August, Feb. - Continue follow-up with PCP for routine health maintenance and malignancy screening Follow-up in 4 months with me Thank you for allowing me to participate in the care of your patient. Darrell Jack MD [facility] Evaluation note* Diagnosis Onset Date Resolution Status Admit Date Obesity chronic June 21, 2024 9:20am CHATO (obstructive sleep apnea) chroni c June 21, 2024 9:20am Smoking greater than 30 pack years chronic June 21 9:20am [facility] Work Phone: 1(100) 732-383712-31-2024 NotePatient Outreach (INTMMN) BERENICE GIVENS ([id number]) 1965 F Date Time Provider Department 05/30/24 DAVID CHICAS During your visit today, we recorded the following information about you: Allergies As of Date: 05/30/2024 Noted Allergy Reaction LISINOPRIL 06/04/2011 5 - Intolerance Comments: sleepy PRAVASTATIN 06/30/2013 15 - Contraindication-Medical Bear* Comments: myositis ZITHROMAX (AZITHROMYCIN) 01/19/2008 Comments: Abdominal cramping Date Reviewed: 04/04/2024 Reviewed by: Marybeth Stringer LPN - Fully Assessed Visit Diagnosis:Essential hypertension [I10] Order(s):BASIC METABOLIC PANEL [SQBMP] Order #: [id number] FUTURE Prescriptions as of 06/02/2024 - ezetimibe (ZETIA) 10 mg tablet Take 1 tablet by mouth once daily. - cholecalciferol (VITAMIN D3) 5,000 unit tab Take 1 tablet by mouth once daily. - sertraline (ZOLOFT) 100 mg tablet Take 1 tablet by mouth once daily. Forgot Rx when traveling, do not cancel [facility] Rx - topiramate (TOPAMAX) 50 mg tablet Take 1 tablet by mouth daily at bedtime. - gabapentin (NEURONTIN) 300 mg capsule Take 1 capsule by mouth three times a day for 10 days. - lansoprazole (PREVACID) 30 mg capsule Take 1 capsule by mouth once daily. - hydrOXYchloroQUINE (PLAQUENIL) 200 mg tablet Take 1 tablet by mouth two times a day. - folic acid 1 mg tablet Take 2 tablets by mouth once daily. - metFORMIN ER (GLUCOPHAGE XR) 500 mg 24 hr tablet Take 1 tablet by mouth daily with breakfast. Forgot Rx when traveling, do not cancel [facility] Rx - losartan (COZAAR) 100 mg tablet Take 1 tablet by mouth once daily. - topiramate (TOPAMAX) 100 mg tablet Take 1 tablet by mouth every evening. - levothyroxine (SYNTHROID) 100 mcg tablet TAKE 1 TABLET DAILY ON AN EMPTY STOMACH FOR THYROID - mometasone (ELOCON) 0.1 % cream Apply 1 application to affected area once daily. - diclofenac, EC, (VOLTAREN) 75 mg EC tablet Take 1 tablet by mouth twice daily. - omega-3 acid ethyl esters (LOVAZA) 1 gram capsule TAKE 2 CAPSULES ONCE DAILY - MV with Ifa-Msgiiaqc-Ivglxs (CENTRUM SILVER) 0.4-300-250 mg-mcg-mcg tab Take 1 tablet by mouth once daily. Problem List As Of Date 05/30/2024 Noted Resolved DISC LUP ERYTHEMATOS LID [H01.129] 05/18/2005 CHOLECYSTITIS SEE ALSO GALLBLADDER CHRONIC [K*10/12/2005 Hypothyroidism [E03.9] 11/06/2005 Lupus erythematosus [L93.0] 11/06/2005 Essential hypertension [I10] DEPRESSIVE DISORDER NEC [F32.89] ABDOMINAL PAIN EPIGASTRIC [R10.13] ACUTE GASTRITIS W/O HEMORRHAGE [K29.00] 11/13/2008 DIAPHRAGMATIC HERNIA [K44.9] 11/13/2008 Hyperglycemia [R73.9] 06/04/2011 Statin myopathy [G72.0, T46.6X5A] 07/11/2013 Hyperlipidemia [E78.5] 07/13/2013 Morbid obesity (HCC) [E66.01] 09/16/2016 Prediabetes [R73.03] 09/16/2016 Encounter for long-term (current) use of medica*11/22/2017 Encounter for screening for malignant neoplasm *11/22/2017 Gastroesophageal reflux disease [K21.9] 11/22/2017 Tibialis tendinitis of both lower extremities [*06/27/2018 Peroneal tendinitis of both lower legs [M76.71,*06/27/2018 Migraine without aura and without status migrai*05/28/2021 Cigarette smoker [F17.210] 06/27/2021 08/26/2021 WHITNEY (dyspnea on exertion) [R06.09] 06/27/2021 Obstructive sleep apnea syndrome [G47.33] 06/27/2021 Renal colic [N23] 06/27/2021 Tobacco dependence in remission [F17.201] 06/27/2021 Obesity, Class III, BMI >= 40 [E66.01] 06/27/2021 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 I'd advise that we do a virtual visit on 06/21/24 at 2:20pm if that would work for her. Thanks [facility]12-20-2024 Miscellaneous Notes* Telephone Encounter - Keshia Givens RN - 05/19/2024 8:51 AM EST ----- Message from Darrell Jack MD sent at 05/18/2024 5:56 PM EST ----- Please call her to let her know the ultrasound shows some active inflammation in various joints in the wrists and both hands. I'd advise that we do a virtual visit on 06/21/24 at 2:20pm if that would work for her. Thanks documented [facility] encounter[facility]11-27-[facility]24 Hospital Discharge instructions Patient Education 04/26/2024 11:48:07 Botulinum Toxin Bladder Injection Botulinum Toxin Bladder Injection A botulinum toxin bladder injection is a procedure to treat an overactive bladder. During the procedure, a drug called botulinum toxin is injected into the bladder through a long, thin needle. This drug relaxes the bladder muscles and reduces overactivity. You may need this procedure if your medicines are not working or you cannot take them. The procedure may be repeated as needed. The treatment usually lasts for 6 months. Your health care provider will monitor you to see how well you respond. Tell a health care provider about: Any allergies you have. All medicines you are taking, including vitamins, herbs, eye drops, creams, and ezso-rob-zdfuffl medicines. Any problems you or family members have had with anesthetic medicines. Any blood disorders you have. Any surgeries you have had. Any medical conditions you have. Any previous reactions to a botulinum toxin injection. Any symptoms of urinary tract infection. These include chills, fever, a burning feeling when passing urine, and needing to pass urine often. Whether you are or may be . What are the risks? Generally this is a safe procedure. However, problems may occur, including: Not being able to pass urine. If this happens, you may need to have your bladder emptied with a thin tube inserted into your urethra (urinary catheter). Bleeding. Urinary tract infection. Allergic reaction to the botulinum toxin. Pain or burning when passing urine. Damage to other structures or organs. What happens before the procedure? Staying hydrated Follow instructions from your health care provider about hydration, which may include: Up to 2 hours before the procedure you may continue to drink clear liquids, such as water, clear fruit juice, black coffee, and plain tea. Eating and drinking restrictions Follow instructions from your health care provider about eating and drinking, which may include: 8 hours before the procedure stop eating heavy meals or foods, such as meat, fried foods, or fatty foods. 6 hours before the procedure stop eating light meals or foods, such as toast or cereal. 6 hours before the procedure stop drinking milk or drinks that contain milk. 2 hours before the procedure stop drinking clear liquids. Medicines Ask your health care provider about: Changing or stopping your regular medicines. This is especially important if you are taking diabetes medicines or blood thinners. Taking medicines such as aspirin and ibuprofen. These medicines can thin your blood. Do not take these medicines unless your health care provider tells you to take them. Taking qzrt-szr-airtntu medicines, vitamins, herbs, and supplements. General instructions Plan to have someone take you home from the hospital or clinic. If you will be going home right after the procedure, plan to have someone with you for 24 hours. Ask your health care provider what steps will be taken to help prevent infection. These may include: ?Removing hair at the procedure site. ?Washing skin with a germ-killing soap. ?Antibiotic medicine. What happens during the procedure? You will be asked to empty your bladder. An IV will be inserted into one of your veins. You will be given one or more of the following: ?A medicine to help you relax (sedative). ?A medicine to numb the area (local anesthetic). ?A medicine to make you fall asleep (general anesthetic). A long, thin scope called a cystoscope will be passed into your bladder through the part of the body that carries urine from your bladder (urethra). The cystoscope will be used to fill your bladder with water. A long needle will be passed through the cystoscope and into the bladder. The botulinum toxin will be injected into your bladder. It may be injected into multiple areas of your bladder. Your bladder will be emptied, and the cystoscope will be removed. The procedure may vary among health care providers and hospitals. What can I expect after procedure? After your procedure, it is common to have: Blood-tinged urine. Burning or soreness when you pass urine. Follow these instructions at home: Medicines Take hnbg-txv-nezoszw and prescription medicines only as told by your health care provider. If you were prescribed an antibiotic medicine, take it as told by your health care provider. Do notstop taking the antibiotic even if you start to feel better. General instructions Do not drive for 24 hours if you were given a sedative during your procedure. Drink enough fluid to keep your urine pale yellow. Return to your normal activities as told by your health care provider. Ask your health care provider what activities are safe for you. Keep all follow-up visits as told by your health care provider. This is important. Contact a health care provider if you have: A fever or chills. Blood-tinged urine for more than one day after your procedure. Worsening pain or burning when you pass urine. Pain or burning when passing urine for more than two days after your procedure. Trouble emptying your bladder. Get help right away if you: Have bright red blood in your urine. Are unable to pass urine. Summary A botulinum toxin bladder injection is a procedure to treat an overactive bladder. This is generally a very safe procedure. However, problems may occur, including not being able to pass urine, bleeding, infection, pain, and allergic reactions to medicines. You will be told when to stop eating and drinking, and what medicines to change or stop. Follow instructions carefully. After the procedure, it is common to have blood in urine and to have soreness or burning when passing urine. Contact a health care provider if you have a fever, have blood in urine for more than a few days, or have trouble passing urine. Get help right away if you have bright red blood in the urine, or if you are unable to pass urine. This information is not intended to replace advice given to you by your health care provider. Make sure you discuss any questions you have with your health care provider. Document Released: 02/05/2016 Document Revised: 11/25/2018 Document Reviewed: 11/25/2018 [employer] Patient Education 2020 [employer]. Follow Up Care 04/11/2024 15:58:17 With:SARA AUSTIN DO, Obstetrics & Gynecology, [facility] Address: [address] [phone] When: Unknown Comments:Follow-up as needed [facility] 11-27-2024 Summary of episode note Discharge Instructions Thank you for allowing [facility] to assist you with your healthcare needs. The following is importantdischarge information regarding your hospital visit. Your Care Team CAIO ADAM MD What to do next Follow Up Appointments Follow Up with SARA AUSTIN DO, Obstetrics & Gynecology, [facility] Where:[address] [address] [phone] Additional Information: Follow-up as needed Allergies NKA Medications Please ask your primary doctor or pharmacist before taking any other medication not listed, including over the counter drugs, herbal medications, vitamins and or supplements as they may interact withyour home medications. Please take this list to your next doctor s visit. Bring all medications you take, including over the counter medications, herbals and other supplements with you to your doctor s visit. Patients and families are reminded to discard old lists and to update any records with all medication providers or retail pharmacies. Education Materials Botulinum Toxin Bladder Injection A botulinum toxin bladder injection is a procedure to treat an overactive bladder. During the procedure, a drug called botulinum toxin is injected into the bladder through a long, thin needle. This drug relaxes the bladder muscles and reduces overactivity. You may need this procedure if your medicines are not working or you cannot take them. The procedure may be repeated as needed. The treatment usually lasts for 6 months. Your health care provider will monitor you to see how well you respond. Tell a health care provider about: Any allergies you have. All medicines you are taking, including vitamins, herbs, eye drops, creams, and jamy-zso-uqejnzo medicines. Any problems you or family members have had with anesthetic medicines. Any blood disorders you have. Any surgeries you have had. Any medical conditions you have. Any previous reactions to a botulinum toxin injection. Any symptoms of urinary tract infection. These include chills, fever, a burning feeling when passing urine, and needing to pass urine often. Whether you are or may be . What are the risks? Generally this is a safe procedure. However, problems may occur, including: Not being able to pass urine. If this happens, you may need to have your bladder emptied with a thin tube inserted into your urethra (urinary catheter). Bleeding. Urinary tract infection. Allergic reaction to the botulinum toxin. Pain or burning when passing urine. Damage to other structures or organs. What happens before the procedure? Staying hydrated Follow instructions from your health care provider about hydration, which may include: Up to 2 hours before the procedure you may continue to drink clear liquids, such as water, clear fruit juice, black coffee, and plain tea. Eating and drinking restrictions Follow instructions from your health care provider about eating and drinking, which may include: 8 hours before the procedure stop eating heavy meals or foods, such as meat, fried foods, or fatty foods. 6 hours before the procedure stop eating light meals or foods, such as toast or cereal. 6 hours before the procedure stop drinking milk or drinks that contain milk. 2 hours before the procedure stop drinking clear liquids. Medicines Ask your health care provider about: Changing or stopping your regular medicines. This is especially important if you are taking diabetes medicines or blood thinners. Taking medicines such as aspirin and ibuprofen. These medicines can thin your blood. Do not take these medicines unless your health care provider tells you to take them. Taking gazw-jaa-uqkvyhp medicines, vitamins, herbs, and supplements. General instructions Plan to have someone take you home from the hospital or clinic. If you will be going home right after the procedure, plan to have someone with you for 24 hours. Ask your health care provider what steps will be taken to help prevent infection. These may include: ? Removing hair at the procedure site. ? Washing skin with a germ-killing soap. ? Antibiotic medicine. What happens during the procedure? You will be asked to empty your bladder. An IV will be inserted into one of your veins. You will be given one or more of the following: ? A medicine to help you relax (sedative). ? A medicine to numb the area (local anesthetic). ? A medicine to make you fall asleep (general anesthetic). A long, thin scope called a cystoscope will be passed into your bladder through the part of the body that carries urine from your bladder (urethra). The cystoscope will be used to fill your bladder with water. A long needle will be passed through the cystoscope and into the bladder. The botulinum toxin will be injected into your bladder. It may be injected into multiple areas of your bladder. Your bladder will be emptied, and the cystoscope will be removed. The procedure may vary among health care providers and hospitals. What can I expect after procedure? After your procedure, it is common to have: Blood-tinged urine. Burning or soreness when you pass urine. Follow these instructions at home: Medicines Take nymg-krr-lxmrzyg and prescription medicines only as told by your health care provider. If you were prescribed an antibiotic medicine, take it as told by your health care provider. Do notstop taking the antibiotic even if you start to feel better. General instructions Do not drive for 24 hours if you were given a sedative during your procedure. Drink enough fluid to keep your urine pale yellow. Return to your normal activities as told by your health care provider. Ask your health care provider what activities are safe for you. Keep all follow-up visits as told by your health care provider. This is important. Contact a health care provider if you have: A fever or chills. Blood-tinged urine for more than one day after your procedure. Worsening pain or burning when you pass urine. Pain or burning when passing urine for more than two days after your procedure. Trouble emptying your bladder. Get help right away if you: Have bright red blood in your urine. Are unable to pass urine. Summary A botulinum toxin bladder injection is a procedure to treat an overactive bladder. This is generally a very safe procedure. However, problems may occur, including not being able to pass urine, bleeding, infection, pain, and allergic reactions to medicines. You will be told when to stop eating and drinking, and what medicines to change or stop. Follow instructions carefully. After the procedure, it is common to have blood in urine and to have soreness or burning when passing urine. Contact a health care provider if you have a fever, have blood in urine for more than a few days, or have trouble passing urine. Get help right away if you have bright red blood in the urine, or if you are unable to pass urine. This information is not intended to replace advice given to you by your health care provider. Make sure you discuss any questions you have with your health care provider. Document Released: 02/05/2016 Document Revised: 11/25/2018 Document Reviewed: 11/25/2018 [employer] Patient Education 2020 [employer]. Additional Information VACCINATE! IT SAVES LIVES! Members of the community who have not yet received the COVID-19 vaccine and would like to receive it can visit one of [facility] vaccine clinics. There are many vaccine clinic locations within the [facility]. For locations and available times, please visit [email or web address].[place].gov/. It is important to note that some COVID mobile vaccine clinics are held outdoors and may be canceled in rainy or stormy conditions. To learn more about pediatric vaccinations (ages 5-11), we invite you to visit the [facility] webpage. [email or web address] learn more about the COVID-19 vaccine, we invite you to visit the CDC website for a list of frequently asked questions.https://www.cdc.gov/coronavirus/2019-ncov/vaccines/faq.html [facility] Patient Portal Access Instructions: Stay connected with your healthcare team and access your personal medical information anytime with the [facility] Patient Portal. Please follow the directions below to create your [facility] account: 1.Access the email account you provided upon registration to the hospital/physician office.2.Look for an invitation email from [facility].3.Open the email and access the invitation link: AcceptInvitation to [facility].4.Fill in the required noonan to create your account. To access your account, visit [employer]. Click the blue button labeled Access Patient Portal and then log in with the username and password that you created in the steps above. You will be able to view your test results, lab results, a summary of your visits, upcoming appointments and more. There is also a convenient messaging option where you can send secure messages to your p rovider. In addition, you will have the ability to download any documents or summaries to your computer and/or send the information securely to a physician. Remember that your healthcare information is confidential, so carefully consider who you will allowto register on the [facility] Patient Portal for access to your information. You can also access the [facility] Patient Portal on the [facility] tito. Simply click on Patient Portal and then log into your account. If you would like to receive a full copy of your medical records, please contact the [facility] Medical Records Department by calling [phone], Wednesday through Wednesday between 8 a.m. and 4:30 p.m. HOW TO SAFELY DISPOSE OF PRESCRIPTION MEDICATIONS Please use one of the following methods to safely dispose of your unused medications. 1.Use a drug disposal kit: the drug disposal pouch allows you to safely discard your old and unuseddrugs. Ask your nurse to give you one when you are discharged.2.Visit a local take-back location: Many local pharmacies and police departments have programs that collect old and unwanted prescriptiondrugs. Call your local pharmacy or go to http://Kik.InternetArray/4L1Zz1c to find one close to you.3.Make use of household items: Use cat litter or old coffee grounds to dispose medications if other options arenot available. Mix your drugs with these household products, seal them in an airtight container andthrow it into the garbage. Call [facility]: [phone] to be sure your drugs can be disposed of in this way. Some medicines may require a different approach.4.Never flush your medications down the toilet. IF YOU HAVE BEEN PRESCRIBED AN OPIOID FOR PAIN If you have been prescribed an opioid (such as hydrocodone, oxycodone or morphine), it is critical to understand the possible side effects and risks of opioid pain medications. Even when taken as directed, opioids can have several side effects including: Tolerance, meaning you might need to take more of a medication for the same pain relief. Nausea, vomiting and/or constipation. Sleepiness, dizziness, dry mouth, confusion, depression or itching. Physical dependence, meaning you have withdrawal symptoms when a medication is stopped, can develop within a few days. KNOW YOUR RESPONSIBILITIES It is important to know exactly how much and how often to take the opioid pain medications you are prescribed. Never take opioids in higher amounts or more often than prescribed. Do not combine opioids with alcohol or other drugs that cause drowsiness, such as benzodiazepines, also known as benzos, including diazepam and alprazolam, muscle relaxants or sleep aids. Never sell or share prescription opioids. This is illegal. Store opioids in a secure place and out of reach of others (including children, family, friends and visitors). The last page of this document has been signed and retained as a CHART COPY. Signatures Patient Education Materials Botulinum Toxin Bladder Injection Medication Leaflets My discharge plan and instructions have been reviewed and explained to me and I,BERENICE GIVENS understand my current condition and have read and understand these discharge instructions. I have received a written copy of the plan/instructions. If I have questions, I am aware that I should contact my doctor. Patient/[facility]visor [facility] Signature: Date/Time: Relationship to Patient: Witness Name/Signature: Date/Time: [id number] History and physical note Date of Service History and Physical Update I have examined the patient; reviewed the History and Physical and there are no changes to the History and Physical unless noted below. Digitally Signed by SARA AUSTIN DO on 04/26/2024 08:20 AM [facility] [id number] Miscellaneous Notes* Telephone Encounter - Jacque Sequeira LPN - 04/24/2024 2:11 PM EST Prescription Refill Information The patient has been identified by name and date of : Yes Caregiver verified no other encounters exist for this prescription request: Yes Caregiver confirmed with patient/requestor that no other refills are due, in the near future, with this provider at this time: Yes The last office visit in the department: 04/04/24 Does the patient have a future office visit with this provider/department: Yes 06/16/24 Requested Prescriptions Pending Prescriptions Disp Refills sertraline (ZOLOFT) 100 mg tablet 90 tablet 3 Sig: Take 1 tablet by mouth once daily. Forgot Rx when traveling, do not cancel [facility] Jacque Sequeira LPN April 24, 2024 2:11 PM [facility] Telephone encounter Note * Telephone Encounter - Jacque Sequeira LPN - 04/24/2024 2:11 PM EST Prescription Refill Information The patient has been identified by name and date of : Yes Caregiver verified no other encounters exist for this prescription request: Yes Caregiver confirmed with patient/requestor that no other refills are due, in the near future, with this provider at this time: Yes The last office visit in the department: 04/04/24 Does the patient have a future office visit with this provider/department: Yes 06/16/24 Requested Prescriptions Pending Prescriptions Disp Refills sertraline (ZOLOFT) 100 mg tablet 90 tablet 3 Sig: Take 1 tablet by mouth once daily. Forgot Rx when traveling, do not cancel [facility] Jacque Sequeira LPN April 24, 2024 2:11 PM [facility]11-25-[facility] Telephone encounter Note* Telephone Encounter - Jacque Sequeira LPN - 04/24/2024 2:10 PM EST Prescription Refill Information The patient has been identified by name and date of : Yes Caregiver verified no other encounters exist for this prescription request: Yes Caregiver confirmed with patient/requestor that no other refills are due, in the near future, with this provider at this time: Yes The last office visit in the department: 04/04/24 Does the patient have a future office visit with this provider/department: Yes06/16/24 Requested Prescriptions Pending Prescriptions Disp Refills cholecalciferol (VITAMIN D3) 5,000 unit tab 90 tablet 3 Sig: Take 1 tablet by mouth once daily. Jacque Sequeira LPN April 24, 2024 2:10 PM [facility]11-25-2024 Miscellaneous Notes* Telephone Encounter - Jacque Sequeira LPN - 04/24/2024 2:10 PM EST Prescription Refill Information The patient has been identified by name and date of : Yes Caregiver verified no other encounters exist for this prescription request: Yes Caregiver confirmed with patient/requestor that no other refills are due, in the near future, with this provider at this time: Yes The last office visit in the department: 04/04/24 Does the patient have a future office visit with this provider/department: Yes06/16/24 Requested Prescriptions Pending Prescriptions Disp Refills cholecalciferol (VITAMIN D3) 5,000 unit tab 90 tablet 3 Sig: Take 1 tablet by mouth once daily. Jacque Sequeira LPN April 24, 2024 2:10 PM documented in this encounterReg[facility]11-[facility]24 Telephone encounter Note * Telephone Encounter - Jacque Sequeira LPN - 04/24/2024 2:05 PM EST Prescription Refill Information The patient has been identified by name and date of : Yes Caregiver verified no other encounters exist for this prescription request: Yes Caregiver confirmed with patient/requestor that no other refills are due, in the near future, with this provider at this time: Yes The last office visit in the department: 04/04/24 Does the patient have a future office visit with this provider/department: Yes 06/16/24 Requested Prescriptions Pending Prescriptions Disp Refills ezetimibe (ZETIA) 10 mg tablet 90 tablet 3 Sig: Take 1 tablet by mouth once daily. Jacque Sequeira LPN April 24, 2024 2:05 PM [facility]-25-[facility] Miscellaneous Notes* Telephone Encounter - Jacque Sequeira LPN - 04/24/2024 2:05 PM EST Prescription Refill Information The patient has been identified by name and date of : Yes Caregiver verified no other encounters exist for this prescription request: Yes Caregiver confirmed with patient/requestor that no other refills are due, in the near future, with this provider at this time: Yes The last office visit in the department: 04/04/24 Does the patient have a future office visit with this provider/department: Yes 06/16/24 Requested Prescriptions Pending Prescriptions Disp Refills ezetimibe (ZETIA) 10 mg tablet 90 tablet 3 Sig: Take 1 tablet by mouth once daily. Jacque Sequeira LPN April 24, 2024 2:05 PM documented in this encounterReg[facility]11-05-2024 NoteHNO ID: [id number] Author: LOUANN DAMON PA-C Service: ? Author Type: Physician Sound Engineer Audio Control Type: Progress Notes Filed: 04/04/2024 14:59 Note Text: 04/04/2024 Patient presents with: Same Day Appointment: shingles since Wednesday , left flank, painful 10/07 SUBJECTIVE: This is a 59 year old that is here today for complaint of shingles. She was seen Wednesday at and prescribed Valtrex. Still having new symptoms. Pain is intense. Taking tylenol prn, not helping per patient. Denies fever/chills. PAST MEDICAL HISTORY Diagnosis Date Abdominal pain, epigastric Cigarette smoker 06/27/2021 Depressive disorder, not elsewhere classified Diaphragmatic hernia without mention of obstruction or gangrene Lupus erythematosus Migraine, unspecified, with intractable migraine, so stated, without mention of status migrainosus Migraine Obstructive sleep apnea syndrome, severe with associated hypoxemia. patient declined to schedule follow up testing for CPAP Unspecified essential hypertension ALLERGIES Lisinopril, Pravastatin, and Zithromax [Azithromycin] MEDICATIONS Current Outpatient Medications Medication Sig topiramate (TOPAMAX) 50 mg tablet Take 1 tablet by mouth daily at bedtime. valACYclovir (VALTREX) 1 gram tablet Take 1 tablet by mouth three times a day for 7 days. lansoprazole (PREVACID) 30 mg capsule Take 1 capsule by mouth once daily. hydrOXYchloroQUINE (PLAQUENIL) 200 mg tablet Take 1 tablet by mouth two times a day. folic acid 1 mg tablet Take 2 tablets by mouth once daily. metFORMIN ER (GLUCOPHAGE XR) 500 mg 24 hr tablet Take 1 tablet by mouth daily with breakfast. Forgot Rx when traveling, do not cancel [facility] sertraline (ZOLOFT) 100 mg tablet Take 1 tablet by mouth once daily. Forgot Rx when traveling, do not cancel [facility] losartan (COZAAR) 100 mg tablet Take 1 tablet by mouth once daily. topiramate (TOPAMAX) 100 mg tablet Take 1 tablet by mouth every evening. levothyroxine (SYNTHROID) 100 mcg tablet TAKE 1 TABLET DAILY ON AN EMPTY STOMACH FOR THYROID ezetimibe (ZETIA) 10 mg tablet Take 1 tablet by mouth once daily. cholecalciferol (VITAMIN D3) 5,000 unit tab Take 1 tablet by mouth once daily. mometasone (ELOCON) 0.1 % cream Apply 1 application to affected area once daily. diclofenac, EC, (VOLTAREN) 75 mg EC tablet Take 1 tablet by mouth twice daily. omega-3 acid ethyl esters (LOVAZA) 1 gram capsule TAKE 2 CAPSULES ONCE DAILY MV with Vli-Ljmffwjr-Veqbtt (CENTRUM SILVER) 0.4-300-250 mg-mcg-mcg tab Take 1 tablet by mouth once daily. No current facility-administered medications for this visit. SOCIAL HISTORY Social History Tobacco Use Smoking status: Former Current packs/day: 0.00 Average packs/day: 0.5 packs/day for 20.0 years (10.0 ttl pk-yrs) Types: Cigarettes Start date: 04/22/1989 Quit date: 04/22/2009 Years since quittin.9 Smokeless tobacco: Never Vaping Use Vaping status: Never Used Substance Use Topics Alcohol use: No Drug use: No REVIEW OF SYSTEMS See HPI OBJECTIVE: BP 132/76 (BP Site: Left Arm, BP Position: Sitting, BP Cuff Size: Large Adult) Pulse 82 Resp 12 Ht 172.7 cm (5' 8) Wt 131.1 kg (289 lb) SpO2 96% BMI 43.94 kg/m? APPEARANCE Well appearing, alert, in no acute distress, well-hydrated, well nourished. SKIN Skin: vesicles on an erythematous base clustered along left flank and left lower abdomen. ASSESSMENT/PLAN: 1. Herpes zoster without complication - ICD9: 053.9, ICD10: B02.9 Continue and finish valtrex. Contact office if still having new eruptions of lesions after completing antiviral. Start gabapentin prn. Discussed starting and titration. Discussed possible SE. - GABAPENTIN 300 MG CAPSULE The patient indicates understanding of these issues and agrees with the plan. Reviewed red flags and when to seek care sooner. [facility]11-05-2024 History of Present illness Narrative* Louann Damon PA-C - 04/04/2024 2:47 PM EST 04/04/2024 Patient presents with: Same Day Appointment: shingles since Wednesday , left flank, painful 10/07 SUBJECTIVE: This is a 59 year old that is here today for complaint of shingles. She was seen Wednesday at and prescribed Valtrex. Still having new symptoms. Pain is intense. Taking tylenol prn, nothelping per patient. Denies fever/chills. PAST MEDICAL HISTORY Diagnosis Date Abdominal pain, epigastric Cigarette smoker 06/27/2021 Depressive disorder, not elsewhere classified Diaphragmatic hernia without mention of obstruction or gangrene Lupus erythematosus Migraine, unspecified, with intractable migraine, so stated, without mention of status migrainosus Migraine Obstructive sleep apnea syndrome, severe with associated hypoxemia. patient declined to schedule follow up testing for CPAP Unspecified essential hypertension ALLERGIES Lisinopril, Pravastatin, and Zithromax [Azithromycin] MEDICATIONS Current Outpatient Medications Medication Sig topiramate (TOPAMAX) 50 mg tablet Take 1 tablet by mouth daily at bedtime. valACYclovir (VALTREX) 1 gram tablet Take 1 tablet by mouth three times a day for 7 days. lansoprazole (PREVACID) 30 mg capsule Take 1 capsule by mouth once daily. hydrOXYchloroQUINE (PLAQUENIL) 200 mg tablet Take 1 tablet by mouth two times a day. folic acid 1 mg tablet Take 2 tablets by mouth once daily. metFORMIN ER (GLUCOPHAGE XR) 500 mg 24 hr tablet Take 1 tablet by mouth daily with breakfast. Forgot Rx when traveling, do not cancel [facility] sertraline (ZOLOFT) 100 mg tablet Take 1 tablet by mouth once daily. Forgot Rx when traveling, do not cancel [facility] losartan (COZAAR) 100 mg tablet Take 1 tablet by mouth once daily. topiramate (TOPAMAX) 100 mg tablet Take 1 tablet by mouth every evening. levothyroxine (SYNTHROID) 100 mcg tablet TAKE 1 TABLET DAILY ON AN EMPTY STOMACH FOR THYROID ezetimibe (ZETIA) 10 mg tablet Take 1 tablet by mouth once daily. cholecalciferol (VITAMIN D3) 5,000 unit tab Take 1 tablet by mouth once daily. mometasone (ELOCON) 0.1 % cream Apply 1 application to affected area once daily. diclofenac, EC, (VOLTAREN) 75 mg EC tablet Take 1 tablet by mouth twice daily. omega-3 acid ethyl esters (LOVAZA) 1 gram capsule TAKE 2 CAPSULES ONCE DAILY MV with Jlx-Ngvhzqyf-Vyxufw (CENTRUM SILVER) 0.4-300-250 mg-mcg-mcg tab Take 1 tablet by mouth oncedaily. No current facility-administered medications for this visit. SOCIAL HISTORY Social History Tobacco Use Smoking status: Former Current packs/day: 0.00 Average packs/day: 0.5 packs/day for 20.0 years (10.0 ttl pk-yrs) Types: Cigarettes Start date: 04/22/1989 Quit date: 04/22/2009 Years since quittin.9 Smokeless tobacco: Never Vaping Use Vaping status: Never Used Substance Use Topics Alcohol use: No Drug use: No REVIEW OF SYSTEMS See HPI OBJECTIVE: BP 132/76 (BP Site: Left Arm, BP Position: Sitting, BP Cuff Size: Large Adult) Pulse 82 Resp 12 Ht 172.7 cm (5' 8) Wt 131.1 kg (289 lb) SpO2 96% BMI 43.94 kg/m APPEARANCE Well appearing, alert, in no acute distress, well-hydrated, well nourished. SKIN Skin: vesicles on an erythematous base clustered along left flank and left lower abdomen. ASSESSMENT/PLAN: 1. Herpes zoster without complication - ICD9: 053.9, ICD10: B02.9 Continue and finish valtrex. Contact office if still having new eruptions of lesions after completing antiviral. Start gabapentin prn. Discussed starting and titration. Discussed possible SE. - GABAPENTIN 300 MG CAPSULE The patient indicates understanding of these issues and agrees with the plan. Reviewed red flags and when to seek care sooner. Louann Damon PA-C documented in this encounterReg[facility]11-[facility]24 Telephone encounter Note * Telephone Encounter - Dennise Palomares RN - 04/04/2024 1:57 PM EST Patient calls and states that she was seen in express care on 04/01/2024 and was diagnosed with Shingles. Patient reports that she has a lot of pain with shingles and is asking if gabapentin can be prescribed. Advised patient that she would need to set up appointment for medication. Patient voiced understanding. Patient scheduled to see Louann Damon today 04/04/2024. Dennise Palomares RN [facility]11-05-2024 Miscellaneous Notes* Telephone Encounter - Dennise Palomares RN - 04/04/2024 1:57 PM EST Patient calls and states that she was seen in express care on 04/01/2024 and was diagnosed with Shingles. Patient reports that she has a lot of pain with shingles and is asking if gabapentin can be prescribed. Advised patient that she would need to set up appointment for medication. Patient voiced understanding. Patient scheduled to see Lounan Damon today 04/04/2024. Dennise Palomares RN documented in this encounterRegency [facility] Company11-05-2024 History of Present illness Narrative* Eddie Wilson, HIGHWAY PAINTER.CUSTOM APPLICATOR - 04/04/2024 1:45 PM EST [facility] Virtual Visit Follow up This visit was conducted as a virtual visit, with patient's permission, via Zoom. It required patient-provider interaction for the medical decision making as documented below. Patient stated name and Patient location [facility] [place] I have communicated my name and active licensure. The patient's identity and physical location wereverified at the time of this visit. Either the patient or their legal patient representative has been informed of the risks and benefits of -- and alternatives to -- treatment through a remote evaluation andconsents to proceed with the evaluation remotely. April 04, 2024 Chief Complaint: headache Impression and Plan last visit: 09/15/2023 with Miranda Maloney CUSTOM APPLICATOR Migraine without aura and without status migrainosus, not intractable (primary encounter diagnosis) Ms. Givens is a 58-year-old female with history significant for migraine, post COVID syndrome, tobacco use disorder, CHATO, HTN, hypothyroidism, depression, anxiety, GERD and lupus. Her headaches are most consistent with episodic migraine. She was previously well controlled with Topamax with infrequent migraine. She ran out of medication over a month ago and tried to see how she would do without it.Her migraines started to increase over this past month without Topamax so we will restart at this time. PLAN: HEADACHE MANAGEMENT: (You are the primary guardian of your health and headache. Keep track of all medications: This includes the reason for use, side effects and benefits.) MEDICATION TREATMENT: Abortive therapy: -Limit OTC medications to 10 days per month or less. Preventive therapy: -Restart Topamax as instructed. Interval Headache History: Since the last visit, the patient states that her headaches have improved. She had more headaches this week, since shingles She is not having any severe disabling headaches Headache 1 Location: At the vertex. Quality/Description: throbbing Associated Symptoms: Photophobia: yes Phonophobia: yes Nausea: yes Vomiting: no Worse with activity: yes Number of migraine headache days/month: 10 Migraine headache severity: 5/10 Triggers: None identified. Relieving factors: Medication, laying down, rest Positional changes: no Aura: none Days missed from work or school in the last month: 0 days : Preventative: Topamax 100mg Abortive: Tylenol New Health Issues: Yes, left side shingles on back, stomach, side New Social History: No New Family History: No Analgesic Diclofenac (Voltaren, Cataflam, Cambia) Anti-Convulsant Topiramate (Topamax, Trokendi XL, Qudexy) Anti-Depressant and Antipsychotic Bupropion (Wellbutrin) Sertraline (Zoloft) Blood Pressure Amlodipine Lisinopril (Zestril) Losartan (Cozaar) Propranolol (Inderal) Other Medications Dexamethasone (Decadron) Over the Counter Medications Acetaminophen (Tylenol) Acetaminophen/Aspirin/Caffeine (Excedrin, Goody s) Aspirin Ibuprofen (Advil, Motrin) Naproxen sodium (Aleve) Current Outpatient Medications Medication Sig valACYclovir (VALTREX) 1 gram tablet Take 1 tablet by mouth three times a day for 7 days. lansoprazole (PREVACID) 30 mg capsule Take 1 capsule by mouth once daily. hydrOXYchloroQUINE (PLAQUENIL) 200 mg tablet Take 1 tablet by mouth two times a day. folic acid 1 mg tablet Take 2 tablets by mouth once daily. metFORMIN ER (GLUCOPHAGE XR) 500 mg 24 hr tablet Take 1 tablet by mouth daily with breakfast. Forgot Rx when traveling, do not cancel [facility] sertraline (ZOLOFT) 100 mg tablet Take 1 tablet by mouth once daily. Forgot Rx when traveling, do not cancel [facility] losartan (COZAAR) 100 mg tablet Take 1 tablet by mouth once daily. topiramate (TOPAMAX) 100 mg tablet Take 1 tablet by mouth every evening. levothyroxine (SYNTHROID) 100 mcg tablet TAKE 1 TABLET DAILY ON AN EMPTY STOMACH FOR THYROID ezetimibe (ZETIA) 10 mg tablet Take 1 tablet by mouth once daily. cholecalciferol (VITAMIN D3) 5,000 unit tab Take 1 tablet by mouth once daily. mometasone (ELOCON) 0.1 % cream Apply 1 application to affected area once daily. diclofenac, EC, (VOLTAREN) 75 mg EC tablet Take 1 tablet by mouth twice daily. omega-3 acid ethyl esters (LOVAZA) 1 gram capsule TAKE 2 CAPSULES ONCE DAILY MV with Ugj-Vosyaygj-Fuodmu (CENTRUM SILVER) 0.4-300-250 mg-mcg-mcg tab Take 1 tablet by mouth oncedaily. No current facility-administered medications for this visit. PAST MEDICAL HISTORY Diagnosis Date Abdominal pain, epigastric Cigarette smoker 06/27/2021 Depressive disorder, not elsewhere classified Diaphragmatic hernia without mention of obstruction or gangrene Lupus erythematosus Migraine, unspecified, with intractable migraine, so stated, without mention of status migrainosus Migraine Obstructive sleep apnea syndrome, severe with associated hypoxemia. patient declined to schedule follow up testing for CPAP Unspecified essential hypertension ALLERGIES Allergen Reactions Lisinopril Intolerance sleepy Pravastatin Contraindication-Medical Surgical myositis Zithromax [Azithrom* Abdominal cramping I have reviewed the Health Status Assessment responses and discussed these with the patient: yes Eddie Wilson APRN.CUSTOM APPLICATOR HEADACHE SCORES: 02/26/2022 09/08/2023 03/28/2024 Headache Questions ER visits since last office visit: 0 0 0 Hospital stays since last office visit 0 0 0 Limited ADLs in the last month: 0 0 0 Days missed from work or school in the last month: 0 0 Days headache pain free in the last month: 28 10 Days per month with ALL of the following symptoms - decreased productivity, light sensitivity and nausea: 0 6 0 Initial improvement of headache after botox injection at last visit: Not applicable, I did not havea botox injection at my last visit Not applicable, I did not have a botox injection at my last visit PRN medication usage in the last month: 0 12 Patient impression of improvement since last visit: Much improved Minimally worse No change 02/26/2022 09/08/2023 03/28/2024 HIT-6 HIT-6 44 (Little or no impact) 46 (Little or no impact) 46 (Little or no impact) 02/26/2022 09/08/2023 03/28/2024 JL - 2/7 SCORES JL-2 Score 3 2 3 JL-7 Score 9 7 02/26/2022 09/08/2023 03/28/2024 Migraine Specific QOL - Higher scores indicate better HRQL Role Function-Restrictive Transformed Score (range: 0-100) 100 100 88.57 Role Function-Preventive Transformed Score (range: 0-100) 100 100 100 Emotional Function Transformed Score (range: 0-100) 100 100 100 05/26/2021 02/26/2022 09/08/2023 PHQ-9 Score 8 7 1 Review of Systems: Review of system: unchanged from the previous visit (sleep patterns, mood, energy, appetite, stress, exercising). Examination: Vital Signs: There were no vitals taken for this visit. Limited due to the nature of the visit General: well appearing, in no acute distress, well-hydrated, well nourished, alert Pain Behaviors:no pain behaviors observed Neurological: Mental Status: Alert and oriented to person, place and time. Affect is normal and appropriate. Speech is spontaneous and fluent without dysarthria, normal in rate, volume and articulation, and clear,coherent, and relevant. Short and terminal manager memory, cognition and general fund of knowledge are good. Attention span and concentration are excellent. HEENT: Head is normocephalic and features were symmetric. IMPRESSION: Berenice Givens is a 59 year old year old female, with a history of migraine, post COVID syndrome, tobacco use disorder, CHATO, HTN, hypothyroidism, depression, anxiety, GERD and lupus. Headache frequency is down since restarting Topamax as she is not having severe disabling migraines. Still with headaches at the vertex with typical migrainous features that she will treat with tylenol. Recently diagnosed with shingles, started Valtrex but is having pain- she will contact her providerfor Gabapentin PLAN: Increase Topamax to 150mg, 125mg for week then up to 150mg Keep track of all medications: This includes the reason for use, side effects and benefits.) MEDICATION TREATMENT: Medications to Start Taking topiramate (TOPAMAX) 50 mg tablet Take 1 tablet by mouth daily at bedtime. Follow-up: 3 months, PRN . Level of service: Est level 3 (20-29 min). Time spent 20 min on the day of service, which included preparing to see the patient, [id number] patient care, completing clinical documentation, obtaining and/or reviewing separately obtained history, and ordering medications, tests, or procedures. ELIZA Saini [facility]24 NoteHNO ID: [id number] Author: EDDIE WILSON APRN.CNP Service: ? Author Type: Nurse Practitioner Type: Progress Notes Filed: 04/04/2024 13:59 Note Text: [facility] Virtual Visit Follow up This visit was conducted as a virtual visit, with patient's permission, via Zoom. It required patient-provider interaction for the medical decision making as documented below. Patient stated name and Patient location [facility] [place] I have communicated my name and active licensure. The patient's identity and physical location were verified at the time of this visit. Either the patient or their legal patient representative has been informed of the risks and benefits of -- and alternatives to -- treatment through a remote evaluation and consents to proceed with the evaluation remotely. April 04, 2024 Chief Complaint: headache Impression and Plan last visit: 09/15/2023 with Miranda Haider CUSTOM APPLICATOR Migraine without aura and without status migrainosus, not intractable (primary encounter diagnosis) Ms. Givens is a 58-year-old female with history significant for migraine, post COVID syndrome, tobacco use disorder, CHATO, HTN, hypothyroidism, depression, anxiety, GERD and lupus. Her headaches are most consistent with episodic migraine. She was previously well controlled with Topamax with infrequent migraine. She ran out of medication over a month ago and tried to see how she would do without it. Her migraines started to increase over this past month without Topamax so we will restart at this time. PLAN: HEADACHE MANAGEMENT: (You are the primary guardian of your health and headache. Keep track of all medications: This includes the reason for use, side effects and benefits.) MEDICATION TREATMENT: Abortive therapy: -Limit OTC medications to 10 days per month or less. Preventive therapy: -Restart Topamax as instructed. Interval Headache History: Since the last visit, the patient states that her headaches have improved. She had more headaches this week, since shingles She is not having any severe disabling headaches Headache 1 Location: At the vertex. Quality/Description: throbbing Associated Symptoms: Photophobia: yes Phonophobia: yes Nausea: yes Vomiting: no Worse with activity: yes Number of migraine headache days/month: 10 Migraine headache severity: 5/10 Triggers: None identified. Relieving factors: Medication, laying down, rest Positional changes: no Aura: none Days missed from work or school in the last month: 0 days : Preventative: Topamax 100mg Abortive: Tylenol New Health Issues: Yes, left side shingles on back, stomach, side New Social History: No New Family History: No Analgesic Diclofenac (Voltaren, Cataflam, Cambia) Anti-Convulsant Topiramate (Topamax, Trokendi XL, Qudexy) Anti-Depressant and Antipsychotic Bupropion (Wellbutrin) Sertraline (Zoloft) Blood Pressure Amlodipine Lisinopril (Zestril) Losartan (Cozaar) Propranolol (Inderal) Other Medications Dexamethasone (Decadron) Over the Counter Medications Acetaminophen (Tylenol) Acetaminophen/Aspirin/Caffeine (Excedrin, Goody?s) Aspirin Ibuprofen (Advil, Motrin) Naproxen sodium (Aleve) Current Outpatient Medications Medication Sig valACYclovir (VALTREX) 1 gram tablet Take 1 tablet by mouth three times a day for 7 days. lansoprazole (PREVACID) 30 mg capsule Take 1 capsule by mouth once daily. hydrOXYchloroQUINE (PLAQUENIL) 200 mg tablet Take 1 tablet by mouth two times a day. folic acid 1 mg tablet Take 2 tablets by mouth once daily. metFORMIN ER (GLUCOPHAGE XR) 500 mg 24 hr tablet Take 1 tablet by mouth daily with breakfast. Forgot Rx when traveling, do not cancel [facility] sertraline (ZOLOFT) 100 mg tablet Take 1 tablet by mouth once daily. Forgot Rx when traveling, do not cancel [facility] Rx losartan (COZAAR) 100 mg tablet Take 1 tablet by mouth once daily. topiramate (TOPAMAX) 100 mg tablet Take 1 tablet by mouth every evening. levothyroxine (SYNTHROID) 100 mcg tablet TAKE 1 TABLET DAILY ON AN EMPTY STOMACH FOR THYROID ezetimibe (ZETIA) 10 mg tablet Take 1 tablet by mouth once daily. cholecalciferol (VITAMIN D3) 5,000 unit tab Take 1 tablet by mouth once daily. mometasone (ELOCON) 0.1 % cream Apply 1 application to affected area once daily. diclofenac, EC, (VOLTAREN) 75 mg EC tablet Take 1 tablet by mouth twice daily. omega-3 acid ethyl esters (LOVAZA) 1 gram capsule TAKE 2 CAPSULES ONCE DAILY MV with Xgr-Npgwzqjb-Vjrnow (CENTRUM SILVER) 0.4-300-250 mg-mcg-mcg tab Take 1 tablet by mouth once daily. No current facility-administered medications for this visit. PAST MEDICAL HISTORY Diagnosis Date Abdominal pain, epigastric Cigarette smoker 06/27/2021 Depressive disorder, not elsewhere classified Diaphragmatic hernia without mention of obstruction or gangrene Lupus erythematosus M (more content not included)...[facility]11-02-2024 NoteHNO ID: [id number] Author: ANNY IQBAL PA-C Service: ? Author Type: Physician Sound Engineer Audio Control Type: Progress Notes Filed: 04/01/2024 12:21 Note Text: This note was created using GreenGarriter. Subjective Berenice Givens is a 59 year old female. HPI Patient presents with a chief complaint of a rash over the past 3 weeks. She had 1 spot 3 weeks ago which did not change much but then the past 2 days started to get multiple spots on her left back and flank area. She states it is itchy, not painful. No other new exposures. She is not sure if she had chickenpox as a child. Denies fever. Review of Systems Constitutional: Negative. HENT: Negative. Respiratory: Negative. Cardiovascular: Negative. Gastrointestinal: Negative. Skin: Positive for rash. All other systems reviewed and are negative. PAST MEDICAL HISTORY Diagnosis Date Abdominal pain, epigastric Cigarette smoker 06/27/2021 Depressive disorder, not elsewhere classified Diaphragmatic hernia without mention of obstruction or gangrene Lupus erythematosus Migraine, unspecified, with intractable migraine, so stated, without mention of status migrainosus Migraine Obstructive sleep apnea syndrome, severe with associated hypoxemia. patient declined to schedule follow up testing for CPAP Unspecified essential hypertension Current Outpatient Medications Medication Sig Dispense Refill lansoprazole (PREVACID) 30 mg capsule Take 1 capsule by mouth once daily. 90 capsule 3 hydrOXYchloroQUINE (PLAQUENIL) 200 mg tablet Take 1 tablet by mouth two times a day. 180 tablet 3 folic acid 1 mg tablet Take 2 tablets by mouth once daily. 180 tablet 3 metFORMIN ER (GLUCOPHAGE XR) 500 mg 24 hr tablet Take 1 tablet by mouth daily with breakfast. Forgot Rx when traveling, do not cancel [facility] Rx 90 tablet 3 sertraline (ZOLOFT) 100 mg tablet Take 1 tablet by mouth once daily. Forgot Rx when traveling, do not cancel [facility] Rx 90 tablet 3 losartan (COZAAR) 100 mg tablet Take 1 tablet by mouth once daily. 90 tablet 3 topiramate (TOPAMAX) 100 mg tablet Take 1 tablet by mouth every evening. 90 tablet 3 levothyroxine (SYNTHROID) 100 mcg tablet TAKE 1 TABLET DAILY ON AN EMPTY STOMACH FOR THYROID 90 tablet 2 ezetimibe (ZETIA) 10 mg tablet Take 1 tablet by mouth once daily. 90 tablet 3 cholecalciferol (VITAMIN D3) 5,000 unit tab Take 1 tablet by mouth once daily. 90 tablet 3 mometasone (ELOCON) 0.1 % cream Apply 1 application to affected area once daily. 120 g 3 diclofenac, EC, (VOLTAREN) 75 mg EC tablet Take 1 tablet by mouth twice daily. 180 tablet 3 omega-3 acid ethyl esters (LOVAZA) 1 gram capsule TAKE 2 CAPSULES ONCE DAILY 180 capsule 3 MV with Evn-Sabxfzlk-Lkglis (CENTRUM SILVER) 0.4-300-250 mg-mcg-mcg tab Take 1 tablet by mouth once daily. 1 tablet 0 valACYclovir (VALTREX) 1 gram tablet Take 1 tablet by mouth three times a day for 7 days. 21 tablet 0 No current facility-administered medications for this visit. PAST SURGICAL HISTORY Procedure Laterality Date CHOLECYSTECTOMY 10/03 Cholecystectomy COLONOSCOPY FLX DX W/COLLJ SPEC WHEN PFRMD 12/10/2017 Colonoscopy ESOPHAGOGASTRODUODENOSCOPY TRANSORAL DIAGNOSTIC EGD ESOPHAGOGASTRODUODENOSCOPY TRANSORAL DIAGNOSTIC 12/10/2017 EGD PAST SURGICAL HISTORY OF trigger finger PAST SURGICAL HISTORY OF heel spur PAST SURGICAL HISTORY OF carpal tunnel PAST SURGICAL HISTORY OF 03/09/12 endovenous laser ablation of L great saphenous vein, small saphenous vein and vein of Giacomini FAMILY HISTORY Problem Relation Age of Onset Diabetes Mother Alzheimer's Disease Mother other (Polycythmeia vera) Father Breast Cancer Sister bilateral mastectomy other (HOCM with myocardial bridge) Sister Alzheimer's Disease Maternal Grandmother Heart Maternal Grandfather Cancer Paternal Grandfather Lung Alzheimer's Disease Maternal Aunt Alzheimer's Disease Maternal Uncle Alzheimer's Disease Maternal Uncle Social History Tobacco Use Smoking status: Former Current packs/day: 0.00 Average packs/day: 0.5 packs/day for 20.0 years (10.0 ttl pk-yrs) Types: Cigarettes Start date: 04/22/1989 Quit date: 04/22/2009 Years since quittin.9 Smokeless tobacco: Never Vaping Use Vaping status: Never Used Substance Use Topics Alcohol use: No Drug use: No Objective BP 142/82 Pulse 88 Temp 36.9 ?C (98.4 ?F) Resp 16 Wt 132 kg (291 lb 0.1 oz) SpO2 95% BMI 44.25 kg/m? Physical Exam Vitals reviewed. Constitutional: Appearance: Normal appearance. HENT: Head: Normocephalic and atraumatic. Skin: General: Skin is warm and dry. Findings: Rash present. Comments: Patient has erythematous vesicular rash on her left lower back extending around her flank area. Consistent with shingles. Neurological: Mental Status: She is alert. Assessment and Plan ASSESSMENT/PLAN: 1. Herpes zoster without complication - ICD9: 053.9, (more content not included)...[facility]11-02-2024 History of Present illness Narrative* Anny Iqbal PA-C - 04/01/2024 12:19 PM EDT Images from the original note were not included. This note was created using Brandle. Subjective Berenice Givens is a 59 year old female. HPI Patient presents with a chief complaint of a rash over the past 3 weeks. She had 1 spot 3 weeks agowhich did not change much but then the past 2 days started to get multiple spots on her left back and flank area. She states it is itchy, not painful. No other new exposures. She is not sure if she had chickenpox as a child. Denies fever. Review of Systems Constitutional: Negative. HENT: Negative. Respiratory: Negative. Cardiovascular: Negative. Gastrointestinal: Negative. Skin: Positive for rash. All other systems reviewed and are negative. PAST MEDICAL HISTORY Diagnosis Date Abdominal pain, epigastric Cigarette smoker 06/27/2021 Depressive disorder, not elsewhere classified Diaphragmatic hernia without mention of obstruction or gangrene Lupus erythematosus Migraine, unspecified, with intractable migraine, so stated, without mention of status migrainosus Migraine Obstructive sleep apnea syndrome, severe with associated hypoxemia. patient declined to schedule follow up testing for CPAP Unspecified essential hypertension Current Outpatient Medications Medication Sig Dispense Refill lansoprazole (PREVACID) 30 mg capsule Take 1 capsule by mouth once daily. 90 capsule 3 hydrOXYchloroQUINE (PLAQUENIL) 200 mg tablet Take 1 tablet by mouth two times a day. 180 tablet 3 folic acid 1 mg tablet Take 2 tablets by mouth once daily. 180 tablet 3 metFORMIN ER (GLUCOPHAGE XR) 500 mg 24 hr tablet Take 1 tablet by mouth daily with breakfast. Forgot Rx when traveling, do not cancel [facility] Rx 90 tablet 3 sertraline (ZOLOFT) 100 mg tablet Take 1 tablet by mouth once daily. Forgot Rx when traveling, do not cancel [facility] Rx 90 tablet 3 losartan (COZAAR) 100 mg tablet Take 1 tablet by mouth once daily. 90 tablet 3 topiramate (TOPAMAX) 100 mg tablet Take 1 tablet by mouth every evening. 90 tablet 3 levothyroxine (SYNTHROID) 100 mcg tablet TAKE 1 TABLET DAILY ON AN EMPTY STOMACH FOR THYROID 90 tablet 2 ezetimibe (ZETIA) 10 mg tablet Take 1 tablet by mouth once daily. 90 tablet 3 cholecalciferol (VITAMIN D3) 5,000 unit tab Take 1 tablet by mouth once daily. 90 tablet 3 mometasone (ELOCON) 0.1 % cream Apply 1 application to affected area once daily. 120 g 3 diclofenac, EC, (VOLTAREN) 75 mg EC tablet Take 1 tablet by mouth twice daily. 180 tablet 3 omega-3 acid ethyl esters (LOVAZA) 1 gram capsule TAKE 2 CAPSULES ONCE DAILY 180 capsule 3 MV with Cps-Iszpeyvp-Trkhxn (CENTRUM SILVER) 0.4-300-250 mg-mcg-mcg tab Take 1 tablet by mouth oncedaily. 1 tablet 0 valACYclovir (VALTREX) 1 gram tablet Take 1 tablet by mouth three times a day for 7 days. 21 tablet0 No current facility-administered medications for this visit. PAST SURGICAL HISTORY Procedure Laterality Date CHOLECYSTECTOMY 10/03 Cholecystectomy COLONOSCOPY FLX DX W/COLLJ SPEC WHEN PFRMD 12/10/2017 Colonoscopy ESOPHAGOGASTRODUODENOSCOPY TRANSORAL DIAGNOSTIC EGD ESOPHAGOGASTRODUODENOSCOPY TRANSORAL DIAGNOSTIC 12/10/2017 EGD PAST SURGICAL HISTORY OF trigger finger PAST SURGICAL HISTORY OF heel spur PAST SURGICAL HISTORY OF carpal tunnel PAST SURGICAL HISTORY OF 03/09/12 endovenous laser ablation of L great saphenous vein, small saphenous vein and vein of Giacomini FAMILY HISTORY Problem Relation Age of Onset Diabetes Mother Alzheimer's Disease Mother other (Polycythmeia vera) Father Breast Cancer Sister bilateral mastectomy other (HOCM with myocardial bridge) Sister Alzheimer's Disease Maternal Grandmother Heart Maternal Grandfather Cancer Paternal Grandfather Lung Alzheimer's Disease Maternal Aunt Alzheimer's Disease Maternal Uncle Alzheimer's Disease Maternal Uncle Social History Tobacco Use Smoking status: Former Current packs/day: 0.00 Average packs/day: 0.5 packs/day for 20.0 years (10.0 ttl pk-yrs) Types: Cigarettes Start date: 04/22/1989 Quit date: 04/22/2009 Years since quittin.9 Smokeless tobacco: Never Vaping Use Vaping status: Never Used Substance Use Topics Alcohol use: No Drug use: No Objective BP 142/82 Pulse 88 Temp 36.9 C (98.4 F) Resp 16 Wt 132 kg (291 lb 0.1 oz) SpO2 95% BMI 44.25 kg/m Physical Exam Vitals reviewed. Constitutional: Appearance: Normal appearance. HENT: Head: Normocephalic and atraumatic. Skin: General: Skin is warm and dry. Findings: Rash present. Comments: Patient has erythematous vesicular rash on her left lower back extending around her flankarea. Consistent with shingles. Neurological: Mental Status: She is alert. Assessment and Plan ASSESSMENT/PLAN: 1. Herpes zoster without complication - ICD9: 053.9, ICD10: B02.9 I will treat with Valtrex. Kidney function reviewed and normal per last labs. Discussed contagiousness of the illness. Follow-up with PCP as needed. Patient agreeable. Anny Iqbal PA-C [facility] Telephone encounter Note * Telephone Encounter - Fatimah Sunshine LPN - 03/30/2024 8:11 AM EDT Patient has been identified by name and date of : Yes Patient phones for refill(s): Requested Prescriptions Pending Prescriptions Disp Refills lansoprazole (PREVACID) 30 mg capsule 90 capsule 3 Sig: Take 1 capsule by mouth once daily. Date of last office visit in primary care: 12/15/2023 Date of next office visit in primary care: 06/16/2024 Please advise. Thank you. Fatimah Sunshine LPN. [facility]10-31-2024 Miscellaneous Notes* Telephone Encounter - Fatimah Sunshine LPN - 03/30/2024 8:11 AM EDT Patient has been identified by name and date of : Yes Patient phones for refill(s): Requested Prescriptions Pending Prescriptions Disp Refills lansoprazole (PREVACID) 30 mg capsule 90 capsule 3 Sig: Take 1 capsule by mouth once daily. Date of last office visit in primary care: 12/15/2023 Date of next office visit in primary care: 06/16/2024 Please advise. Thank you. Fatimah Sunshine LPN. documented in this encounterReg[facility]10-28-[facility]24 Telephone encounter Note * Telephone Encounter - Mili Rueda - 03/27/2024 2:44 PM EDT Patient has been scheduled for their MSK US exam on 05/18/24 : 12:45 PM at MAIN. [facility] Miscellaneous Notes* Telephone Encounter - Mili Rueda - 03/27/2024 2:44 PM EDT Patient has been scheduled for their MSK US exam on 05/18/24 : 12:45 PM at MAIN. * Telephone Encounter - Mili Rueda - 03/27/2024 2:20 PM EDT Called patient on March 27, 2024 at 2:20 PM to schedule their MSK US exam. No answer, left VM, 1st attempt. * Telephone Encounter - Miri Valentin PCNA - 03/27/2024 2:16 PM EDT Visit Type: MSK SYN Visit Length: 45, 50 OR 60 MINUTES Order Name/Protocol: US HAND/WRIST SYNOVIAL SCREEN RT+LT Preferred Provider: N/A Comment: N/A Location: ANY FACILITY Slot held: N/A documented in this encounterRegency [facility]10-28-2024 Telephone encounter Note * Telephone Encounter - Mili Rueda - 03/27/2024 2:20 PM EDT Called patient on March 27, 2024 at 2:20 PM to schedule their MSK US exam. No answer, left VM, 1st attempt. [facility] Telephone encounter Note* Telephone Encounter - Miri Valentin PCNA - 03/27/2024 2:16 PM EDT Visit Type: MSK SYN Visit Length: 45, 50 OR 60 MINUTES Order Name/Protocol: US HAND/WRIST SYNOVIAL SCREEN RT+LT Preferred Provider: N/A Comment: N/A Location: ANY FACILITY Slot held: N/A [facility] Telephone encounter Note* Telephone Encounter - Angie Beach - 03/27/2024 2:14 PM EDT US HAND/WRIST SYNOVIAL SCREEN LEFT (Order #[id number]) on 03/27/24 US HAND/WRIST SYNOVIAL SCREEN RIGHT Please advise needs scheduled [facility] Miscellaneous Notes* Telephone Encounter - Angie Beach - 03/27/2024 2:14 PM EDT US HAND/WRIST SYNOVIAL SCREEN LEFT (Order #[id number]) on 03/27/24 US HAND/WRIST SYNOVIAL SCREEN RIGHT Please advise needs scheduled documented in this encounterRegency Hospital Company10-28-2024 History of Present illness Narrative* Darrell Jack MD - 03/27/2024 1:51 PM EDT On 03/27/2024, I had the pleasure of evaluating Berenice Givens in a follow-up [facility] Rheumatology appointment for inflammatory arthritis. HPI: To review, Berenice Givens is a 59 year old female (goes by Kate) - At age 23, noted onset of malar rash (which was incorrectly diagnosed and managed as acne x1 year), joint pain (including knees), photosensitivity and mouth sores. Diagnosed with SLE. Was initiallytreated with injections (she's guessing of steroids), which stopped as it got to be too much (wouldhave 18 facial injections at a time) - In , started on HCQ with significant improvement in rash and joint pain - In November, reported pain in the R 2nd MCP, bilateral DIPs, hips, knees, ankles, low back and neck. Had injections of the spine, neck helped more than low back but low back injections helped a little. PT done in for tibialis tendinitis of both ankles without relief. Most concerning area of pain was the low back, ankles and hands. - In Jan, reported diclofenac PO which works a lot better for her than tylenol. Increased HCQ dose given US synovitis and pain in the bilateral wrists and MCPs, some in the PIPs - In May, reported some improvement with higher HCQ dose - In Feb, reported things were going well with the higher HCQ dose. Recently injured back afterpicking something up, on the mend. - Today, reports arthritis is ok. Some pain in the wrists/MCPs - Last plaquenil eye exam normal in September PAST MEDICAL HISTORY Diagnosis Date Abdominal pain, epigastric Cigarette smoker 06/27/2021 Depressive disorder, not elsewhere classified Diaphragmatic hernia without mention of obstruction or gangrene Lupus erythematosus Migraine, unspecified, with intractable migraine, so stated, without mention of status migrainosus Migraine Obstructive sleep apnea syndrome, severe with associated hypoxemia. patient declined to schedule follow up testing for CPAP Unspecified essential hypertension GERD PAST SURGICAL HISTORY Procedure Laterality Date CHOLECYSTECTOMY 10/03 Cholecystectomy COLONOSCOPY FLX DX W/COLLJ SPEC WHEN PFRMD 12/10/2017 Colonoscopy ESOPHAGOGASTRODUODENOSCOPY TRANSORAL DIAGNOSTIC EGD ESOPHAGOGASTRODUODENOSCOPY TRANSORAL DIAGNOSTIC 12/10/2017 EGD PAST SURGICAL HISTORY OF trigger finger PAST SURGICAL HISTORY OF heel spur PAST SURGICAL HISTORY OF carpal tunnel PAST SURGICAL HISTORY OF 03/09/12 endovenous laser ablation of L great saphenous vein, small saphenous vein and vein of Giacomini ALLERGIES Allergen Reactions Lisinopril Intolerance sleepy Pravastatin Contraindication-Medical Surgical myositis Zithromax [Azithrom* Abdominal cramping MEDICATIONS: Current Outpatient Medications Medication Sig folic acid 1 mg tablet Take 2 tablets by mouth once daily. metFORMIN ER (GLUCOPHAGE XR) 500 mg 24 hr tablet Take 1 tablet by mouth daily with breakfast. Forgot Rx when traveling, do not cancel [facility] sertraline (ZOLOFT) 100 mg tablet Take 1 tablet by mouth once daily. Forgot Rx when traveling, do not cancel [facility] losartan (COZAAR) 100 mg tablet Take 1 tablet by mouth once daily. topiramate (TOPAMAX) 100 mg tablet Take 1 tablet by mouth every evening. levothyroxine (SYNTHROID) 100 mcg tablet TAKE 1 TABLET DAILY ON AN EMPTY STOMACH FOR THYROID hydrOXYchloroQUINE (PLAQUENIL) 200 mg tablet TAKE 1 TABLET TWICE A DAY. ezetimibe (ZETIA) 10 mg tablet Take 1 tablet by mouth once daily. cholecalciferol (VITAMIN D3) 5,000 unit tab Take 1 tablet by mouth once daily. mometasone (ELOCON) 0.1 % cream Apply 1 application to affected area once daily. lansoprazole (PREVACID) 30 mg capsule Take 1 capsule by mouth once daily. diclofenac, EC, (VOLTAREN) 75 mg EC tablet Take 1 tablet by mouth twice daily. omega-3 acid ethyl esters (LOVAZA) 1 gram capsule TAKE 2 CAPSULES ONCE DAILY MV with Nmq-Rzuapved-Mtbtwu (CENTRUM SILVER) 0.4-300-250 mg-mcg-mcg tab Take 1 tablet by mouth oncedaily. No current facility-administered medications for this visit. FAMILY HISTORY Problem Relation Age of Onset Diabetes Mother Alzheimer's Disease Mother other (Polycythmeia vera) Father Breast Cancer Sister bilateral mastectomy other (HOCM with myocardial bridge) Sister Alzheimer's Disease Maternal Grandmother Heart Maternal Grandfather Cancer Paternal Grandfather Lung Alzheimer's Disease Maternal Aunt Alzheimer's Disease Maternal Uncle Alzheimer's Disease Maternal Uncle SOCIAL HISTORY: Lives in [place] with spouse. Retired from working at a [employer] Tobacco use: None Alcohol use: None Drug use: None PHYSICAL EXAM: VITALS: Blood pressure 140/81, pulse 91, temperature 36.8 C (98.3 F), temperature source Temporal, height 172.7 cm (5' 8), weight 131 kg (288 lb 12.8 oz). CONSTITUTIONAL: Well-appearing, in NAD. SKIN: No rash. No sclerodactyly, calcinosis, telangiectasias, digital ulcers, or skin thickening. EYES: No scleral icterus or conjunctivitis ENT and Mouth: External ears normal. Nares normal. RESPIRATORY: Normal breath sounds, clear to auscultation. CARDIOVASCULAR: Regular rate and rhythm, no murmurs or rubs EXTREMITIES/LYMPH: No edema bilaterally NEURO: Awake, alert and oriented, normal gait MUSCULOSKELETAL: JOINT APPEARANCE: No erythema or warmth of any upper or lower extremity joint. RANGE OF MOTION: Able to fully close fists and curl fingers bilaterally. SWOLLEN JOINTS/SYNOVITIS: No synovitis of any joint. TENDER JOINTS: Tenderness to palpation of the bilateral wrists, MCPs and PIPs *November Widespread Pain Index: 4 (0-19) Symptoms Severity Scale: 7 (0-12) WPI>7 and SS Scale>5 OR WPI 3-6 and SS Scale >9 consistent with fibromyalgia LABORATORY: Latest Ref Rng 02/09/2023 06/04/2023 WBC 3.70 - 11.00 k/uL 7.84 RBC 3.90 - 5.20 m/uL 4.41 Hemoglobin 11.5 - 15.5 g/dL 13.2 Platelet Count 150 - 400 k/uL 275 Creatinine 0.58 - 0.96 mg/dL 0.77 0.93 Sodium 136 - 144 mmol/L 146 (H) Potassium 3.7 - 5.1 mmol/L 5.0 Chloride 97 - 105 mmol/L 107 (H) CO2 22 - 30 mmol/L 27 Anion Gap 9 - 18 mmol/L 12 Calcium 8.5 - 10.2 mg/dL 10.3 (H) eGFR >=60 mL/min/1.73m 90 71 AST 13 - 35 U/L 26 ALT 7 - 38 U/L 25 Component Latest Ref Rng & Units 12/23/2021 Protein, Urine Random 0 - 20 mg/dL 8 Creatinine, Ur Random (UCRR) 20.0 - 300.0 mg/dL 105.4 Protein/Creat Ratio <0.2 0.1 Sm Antibody Negative Negative Anti-Sm <1.0 AI 0.2 CEMENT RUBBER Antibody QUAL Negative Negative Anti-CEMENT RUBBER <1.0 AI 0.9 SSA Antibody Qual Negative Negative Anti-SSA <1.0 AI <0.2 Anti-SSB <1.0 AI <0.2 SSB Antibody Qual Negative Negative CENTROMERE AB QUAL Negative Negative Centromere Ab <1.0 AI <0.2 Scleroderma Ab Qual Negative Negative Scl-70 Abs, EIA <1.0 AI <0.2 ROSEANNE 1 ANTIBODY QUAL Negative Negative Roseanne 1 Antibody <1.0 AI <0.2 Ribosomal CEMENT RUBBER Qualitative Negative Negative Ribosomal CEMENT RUBBER Ab <1.0 AI <0.2 Chromatin Ab Qual Negative Negative Chromatin Ab <1.0 AI <0.2 MARCUS Negative Negative DNA Antibody w/Confirmation <30 IU/mL 22.27 C3 86 - 166 mg/dL 177 (H) C4 13 - 46 mg/dL 28 CRP <0.9 mg/dL 1.1 (H) WSR 0 - 20 mm/hr 30 (H) Rheumatoid Factor <16 IU/mL <10 Hemoglobin/Blood,Ur Negative Negative Component Latest Ref Rng & Units 02/26/2022 CCP Antibody IgG Qualitative Negative Negative CCP Antibody, IgG <20 Units <15 Component Latest Ref Rng & Units 07/16/2014 02/19/2021 05/09/2021 08/13/2021 MARCUS NEGAT Negative MARCUS Titer NEGAT Negative MARCUS Pattern Not applicable for negative result. CCP Antibody, IgG <20 Units <15 Rheumatoid Factor <20 IU/mL <10 WSR 0 - 20 mm/hr 22 (H) CRP <0.9 mg/dL 1.3 (H) PTH, Intact 15 - 65 pg/mL 42 TSH 0.270 - 4.200 mIU/L 0.889 STUDIES: *Oct xray feet- BILATERAL PES PLANUS. BILATERAL CALCANEAL ENTHESOPHYTES, LARGER ON THE LEFT. PROGRESSION OF DEGENERATIVE CHANGES OF THE TIBIOTALAR AND TALONAVICULAR JOINT ON THE LEFT. THE RIGHT FOOT IS UNCHANGED *Jan US wrist/hand- MILD SCATTERED ACTIVE SYNOVITIS, DETAILED. L side: 3rd MCP, radiocarpal and carpal joints. R side: 2nd MCP *November xray hands/l-spine- DJD of hands/l-spine *Jan CT chest- No CT evidence of pulmonary embolism. Lung parenchyma and airways: The central airways are patent. A band like opacity noted in the left lower lobe, likely representing subsegmental atelectasis; otherwise the lungs are clear of consolidations. There appears to be a 3 mm nodule in the juxtapleural area in the right upper lobe, series 6 image 51. No masses identified. Pleural space: No pleural effusion or pneumothorax. No pleural thickening. Lower neck, lymph nodes, and mediastinum: The imaged thyroid gland is normal. No lymphadenopathy in the supraclavicular, axillary, mediastinal, or hilar regions. *Apr xray feet- HALLUX VALGUS WITH MIDFOOT DEGENERATIVE CHANGES AND CALCANEAL ENTHESOPHYTES ON THE LEFT. CALCANEAL ENTHESOPHYTE AT THE PLANTAR FASCIA AND ACHILLES TENDON INSERTION ON THE RIGHT WITH EVIDENCE FOR REMOTE LIGAMENT INJURY. TALUS IMPRESSION and PLAN: 1. Inflammatory arthritis: Prior dx of SLE with history of malar rash, photosensitivity, mouth sores and joint pain with significant improvement s/p HCQ initiation, negative [facility] MARCUS by IFA on multiple occasions. Seronegative RA is a possibility too. US with mild synovitis of the wrist and multiple bilateral MCPs. Continued to have wrist and MCP pain bilaterally so increased to HCQ 200mg bid with significant improvement. With increased pain in the hands. - Continue to HCQ 200mg bid along with routine eye exams, last normal in September - Check US wrists/hands. If synovitis is present, start SSZ (would need to schedule a virtual visit) - Check labs. Notify of results via [facility] 2. Generalized osteoarthritis: Hands (per exam), likely spine, knees. Tylenol alone ineffective - Diclofenac prn - Continue seeing chiropractor. - Given referrals to PT and spine clinic in the past 3. General health maintenance: - Completed the covid vaccination series in August, Feb. - Continue follow-up with PCP for routine health maintenance and malignancy screening Follow-up in 12 months with me, sooner too pending US results Thank you for allowing me to participate in the care of your patient. Darrell Jack MD documented in this encounterReg[facility]09-24-2024 Telephone encounter Note * Telephone Encounter - Jacque Sequeira LPN - 02/22/2024 10:21 AM EDT Prescription Refill Information The patient has been identified by name and date of : Yes Caregiver verified no other encounters exist for this prescription request: Yes Caregiver confirmed with patient/requestor that no other refills are due, in the near future, with this provider at this time: Yes The last office visit in the department: 12/15/23 Does the patient have a future office visit with this provider/department: Yes 06/16/24 Requested Prescriptions Pending Prescriptions Disp Refills folic acid 1 mg tablet 180 tablet 3 Sig: Take 2 tablets by mouth once daily. Jacque Sequeira LPN February 22, 2024 10:22 AM [facility] Miscellaneous Notes* Telephone Encounter - Jacque Sequeira LPN - 02/22/2024 10:21 AM EDT Prescription Refill Information The patient has been identified by name and date of : Yes Caregiver verified no other encounters exist for this prescription request: Yes Caregiver confirmed with patient/requestor that no other refills are due, in the near future, with this provider at this time: Yes The last office visit in the department: 12/15/23 Does the patient have a future office visit with this provider/department: Yes 06/16/24 Requested Prescriptions Pending Prescriptions Disp Refills folic acid 1 mg tablet 180 tablet 3 Sig: Take 2 tablets by mouth once daily. Jacque Sequeira LPN February 22, 2024 10:22 AM documented in this encounterReg[facility]09-10-2024 Telephone encounter Note * Telephone Encounter - Robin Diaz MA - 02/08/2024 9:50 AM EDT Prescription Refill Information The patient has been identified by name and date of : Yes Caregiver verified no other encounters exist for this prescription request: Yes Caregiver confirmed with patient/requestor that no other refills are due, in the near future, with this provider at this time: Yes The last office visit in the department: 12/15/2023 Does the patient have a future office visit with this provider/department: Yes Requested Prescriptions Pending Prescriptions Disp Refills metFORMIN ER (GLUCOPHAGE XR) 500 mg 24 hr tablet 90 tablet 3 Sig: Take 1 tablet by mouth daily with breakfast. Forgot Rx when traveling, do not cancel [facility] Robin Diaz MA February 08, 2024 9:52 AM [facility] Miscellaneous Notes* Telephone Encounter - Robin Diaz MA - 02/08/2024 9:50 AM EDT Prescription Refill Information The patient has been identified by name and date of : Yes Caregiver verified no other encounters exist for this prescription request: Yes Caregiver confirmed with patient/requestor that no other refills are due, in the near future, with this provider at this time: Yes The last office visit in the department: 12/15/2023 Does the patient have a future office visit with this provider/department: Yes Requested Prescriptions Pending Prescriptions Disp Refills metFORMIN ER (GLUCOPHAGE XR) 500 mg 24 hr tablet 90 tablet 3 Sig: Take 1 tablet by mouth daily with breakfast. Forgot Rx when traveling, do not cancel [facility] Robin Diaz MA February 08, 2024 9:52 AM documented in this encounterReg[facility]09-10-2024 Telephone encounter Note * Telephone Encounter - Robin Diaz MA - 02/08/2024 9:19 AM EDT Prescription Refill Information The patient has been identified by name and date of : Yes Caregiver verified no other encounters exist for this prescription request: Yes Caregiver confirmed with patient/requestor that no other refills are due, in the near future, with this provider at this time: Yes The last office visit in the department: 12/15/2023 Does the patient have a future office visit with this provider/department: Yes Requested Prescriptions Pending Prescriptions Disp Refills sertraline (ZOLOFT) 100 mg tablet 90 tablet 3 Sig: Take 1 tablet by mouth once daily. Forgot Rx when traveling, do not cancel [facility] Robin Diaz MA February 08, 2024 9:48 AM [facility] Miscellaneous Notes* Telephone Encounter - Robin Diaz MA - 02/08/2024 9:19 AM EDT Prescription Refill Information The patient has been identified by name and date of : Yes Caregiver verified no other encounters exist for this prescription request: Yes Caregiver confirmed with patient/requestor that no other refills are due, in the near future, with this provider at this time: Yes The last office visit in the department: 12/15/2023 Does the patient have a future office visit with this provider/department: Yes Requested Prescriptions Pending Prescriptions Disp Refills sertraline (ZOLOFT) 100 mg tablet 90 tablet 3 Sig: Take 1 tablet by mouth once daily. Forgot Rx when traveling, do not cancel [facility] Robin Diaz MA February 08, 2024 9:48 AM documented in this encounterRegency Hospital Company07-17-2024 History of Present illness Narrative* Mattie Somers APRN.CUSTOM APPLICATOR - 12/15/2023 2:05 PM EDT CC: Patient presents with: F/U 6 months HPI Berenice Givens is a 58 year old female who presents today for routine follow up. HTN and HLD: Ms. Givens indicates that she is feeling well and denies any symptoms referable to elevated blood pressure. Specifically denies headache, chest pain, palpitations, dyspnea, and peripheraledema. Patient denies any side effects of her medication(s) and is compliant with their regimen. She does check BP's away from this office with average BP's in the 130s/70s range. Berenice denies regular aerobic exercise. She watches her diet for sodium, low fat and low cholesterol most of the time. Last 3 Encounter BP Readings: Date: BP: 11/08/2023 153/81 - 130/79 ([facility]) 06/16/2023 140/80 03/24/2023 131/84 Prediabetes: Ms. Givens denies excessive thirst or increased frequency of urination, chest pain or dyspnea , new or unusual visual symptoms, low sugar/hypoglycemic reactions, weight loss/gain, lightheadedness/dizziness, and bowel changes/loose stools. Follows a diabetic diet some of the time. She is compliant with medication(s) and is tolerating med(s) without any side effects. She reports checking her glucose on a once a day schedule with sugars in the fasting 90s range. Patient's last HgA1C was Hemoglobin A1C (%) Date Value 12/10/2023 5.8 02/09/2023 5.4 05/09/2021 6.0 08/01/2020 6.3 ) Hypothyroidism: Takes medication as ordered. Denies any abnormal change in weight or energy. REVIEW OF SYSTEMS See HPI PAST MEDICAL HISTORY Diagnosis Date Abdominal pain, epigastric Cigarette smoker 06/27/2021 Depressive disorder, not elsewhere classified Diaphragmatic hernia without mention of obstruction or gangrene Lupus erythematosus Migraine, unspecified, with intractable migraine, so stated, without mention of status migrainosus Migraine Obstructive sleep apnea syndrome, severe with associated hypoxemia. patient declined to schedule follow up testing for CPAP Unspecified essential hypertension PAST SURGICAL HISTORY Procedure Laterality Date CHOLECYSTECTOMY 10/03 Cholecystectomy COLONOSCOPY FLX DX W/COLLJ SPEC WHEN PFRMD 12/10/2017 Colonoscopy ESOPHAGOGASTRODUODENOSCOPY TRANSORAL DIAGNOSTIC EGD ESOPHAGOGASTRODUODENOSCOPY TRANSORAL DIAGNOSTIC 12/10/2017 EGD PAST SURGICAL HISTORY OF trigger finger PAST SURGICAL HISTORY OF heel spur PAST SURGICAL HISTORY OF carpal tunnel PAST SURGICAL HISTORY OF 03/09/12 endovenous laser ablation of L great saphenous vein, small saphenous vein and vein of Giacomini ALLERGIES Lisinopril, Pravastatin, and Zithromax [Azithromycin] MEDICATIONS losartan (COZAAR) 100 mg tablet Take 1 tablet by mouth once daily. topiramate (TOPAMAX) 100 mg tablet Take 1 tablet by mouth every evening. levothyroxine (SYNTHROID) 100 mcg tablet TAKE 1 TABLET DAILY ON AN EMPTY STOMACH FOR THYROID hydrOXYchloroQUINE (PLAQUENIL) 200 mg tablet TAKE 1 TABLET TWICE A DAY. ezetimibe (ZETIA) 10 mg tablet Take 1 tablet by mouth once daily. cholecalciferol (VITAMIN D3) 5,000 unit tab Take 1 tablet by mouth once daily. folic acid 1 mg tablet Take 2 tablets by mouth once daily. mometasone (ELOCON) 0.1 % cream Apply 1 application to affected area once daily. metFORMIN ER (GLUCOPHAGE XR) 500 mg 24 hr tablet Take 1 tablet by mouth daily with breakfast. Forgot Rx when traveling, do not cancel [facility] lansoprazole (PREVACID) 30 mg capsule Take 1 capsule by mouth once daily. sertraline (ZOLOFT) 100 mg tablet Take 1 tablet by mouth once daily. Forgot Rx when traveling, do not cancel [facility] diclofenac, EC, (VOLTAREN) 75 mg EC tablet Take 1 tablet by mouth twice daily. omega-3 acid ethyl esters (LOVAZA) 1 gram capsule TAKE 2 CAPSULES ONCE DAILY MV with Fiq-Xahduovy-Eaterh (CENTRUM SILVER) 0.4-300-250 mg-mcg-mcg tab Take 1 tablet by mouth oncedaily. FAMILY HISTORY Problem Relation Age of Onset Diabetes Mother Alzheimer's Disease Mother other (Polycythmeia vera) Father Breast Cancer Sister bilateral mastectomy other (HOCM with myocardial bridge) Sister Alzheimer's Disease Maternal Grandmother Heart Maternal Grandfather Cancer Paternal Grandfather Lung Alzheimer's Disease Maternal Aunt Alzheimer's Disease Maternal Uncle Alzheimer's Disease Maternal Uncle Social History Tobacco Use Smoking status: Former Packs/day: 0.50 Years: 20.00 Additional pack years: 0.00 Total pack years: 10.00 Types: Cigarettes Quit date: 04/22/2009 Years since quittin.6 Smokeless tobacco: Never Vaping Use Vaping Use: Never used Substance Use Topics Alcohol use: No Drug use: No PHYSICAL EXAM BP 130/79 Pulse 69 Wt (P) 128.8 kg (284 lb) BMI (P) 43.18 kg/m General Appearance: well appearing, in no acute distress, alert Skin: Skin color, texture, turgor normal for age; Eyes: conjunctiva pink and moist, no icterus, sclera white, non-injected Lungs: Lungs clear to auscultation. No wheezing, rhonchi, rales. Heart: RRR without murmur, gallop, or rubs. No ectopy Health maintenance reviewed with patient: BP Controlled (<130/80) Never done Cervical Cancer Screening due on 08/11/2020 Shingrix Vaccine(1 of 2) due on 02/27/2024 Mammogram Screening due on 12/14/2024 Hepatitis B Vaccine(1 of 3 - 19+ 3-dose series) due on 12/14/2024 Covid-19 Vaccine( season) due on 12/14/2024 Influenza Vaccine(1) due on 01/30/2024 Annual PCP Team Chronic Disease Visit due on 06/16/2024 Diabetes Screening due on 12/09/2026 Colorectal Cancer Screening due on 12/11/2027 Lipid Screening due on 12/09/2028 DTaP,Tdap,Td Vaccine(4 - Td or Tdap) due on 05/11/2033 Hepatitis C Screening Completed HIV Screening Completed DATA REVIEWED: Most recent labs ASSESSMENT/PLAN: 1. Essential hypertension - ICD9: 401.9, ICD10: I10 (primary diagnosis) - Controlled - Continue current medications - Recommend home blood pressure monitoring, to bring results to next visit - Encouraged sodium restriction, DASH or Mediterranean diet - Recommend regular aerobic exercise 2. Mixed hyperlipidemia - ICD9: 272.2, ICD10: E78.2 - Controlled - Continue current medications - Counseled on healthy diet and regular exercise - Discussed need for and benefit of weight loss. No weight on file for this encounter. 3. Prediabetes - ICD9: 790.29, ICD10: R73.03 Controlled at this time Continue with current treatment and healthy lifestyles. 4. Hypothyroidism, unspecified type - ICD9: 244.9, ICD10: E03.9 - Instructed patient on importance of taking on an empty stomach either first thing in the morning or at bedtime. Asymptomatic and TSH in normal range. Prescription instructions reviewed with patient as applicable. Potential red flag symptoms discussed with the patient. Reviewed appropriate action plan to take if red flag symptoms occur. Patient agreeable to treatment plan. Mattie Somers APRN.CNP documented in this encounterRegency Hospital Company06-10-2024 Telephone encounter Note * Telephone Encounter - Smiley Silveira RN - 11/08/2023 4:00 PM EDT See Office visit from 11/08/23. Smiley Silveira RN [facility]06-10-2024 Miscellaneous Notes* Telephone Encounter - Smiley Silveira RN - 11/08/2023 4:00 PM EDT See Office visit from 11/08/23. Smiley Silveira RN documented in this encounterRegency Hospital [facility]06-10-[facility]24 History of Present illness Narrative* Felix Ornelas MD - 11/08/2023 2:34 PM EDT Images from the original note were not included. Felix Ornelas MD Interventional Cardiology [address] [place] [address] [phone] Chief Complaint Patient presents with: Follow Up HISTORY OF PRESENT ILLNESS: Ms. Givens is a 58 year old female seen in my office today for assessment management prior history of hypertensive heart disease, blood pressure medication Notable for the cardiac 1 to be asymptomatic denies chest pain or shortness of breath Patient undergoing some medial injection for back for the vertebroplasty required clearance Cardiac Risk Factors age (male over 45, female over 55), hyperlipidemia, hypertension PAST MEDICAL HISTORY Diagnosis Date Abdominal pain, epigastric Cigarette smoker 06/27/2021 Depressive disorder, not elsewhere classified Diaphragmatic hernia without mention of obstruction or gangrene Lupus erythematosus Migraine, unspecified, with intractable migraine, so stated, without mention of status migrainosus Migraine Obstructive sleep apnea syndrome, severe with associated hypoxemia. patient declined to schedule follow up testing for CPAP Unspecified essential hypertension PAST SURGICAL HISTORY Procedure Laterality Date CHOLECYSTECTOMY 10/03 Cholecystectomy COLONOSCOPY FLX DX W/COLLJ SPEC WHEN PFRMD 12/10/2017 Colonoscopy ESOPHAGOGASTRODUODENOSCOPY TRANSORAL DIAGNOSTIC EGD ESOPHAGOGASTRODUODENOSCOPY TRANSORAL DIAGNOSTIC 12/10/2017 EGD PAST SURGICAL HISTORY OF trigger finger PAST SURGICAL HISTORY OF heel spur PAST SURGICAL HISTORY OF carpal tunnel PAST SURGICAL HISTORY OF 03/09/12 endovenous laser ablation of L great saphenous vein, small saphenous vein and vein of Giacomini FAMILY HISTORY Problem Relation Age of Onset Diabetes Mother Alzheimer's Disease Mother other (Polycythmeia vera) Father Breast Cancer Sister bilateral mastectomy other (HOCM with myocardial bridge) Sister Alzheimer's Disease Maternal Grandmother Heart Maternal Grandfather Cancer Paternal Grandfather Lung Alzheimer's Disease Maternal Aunt Alzheimer's Disease Maternal Uncle Alzheimer's Disease Maternal Uncle Social History Tobacco Use Smoking status: Former Packs/day: 0.50 Years: 20.00 Additional pack years: 0.00 Total pack years: 10.00 Types: Cigarettes Quit date: 04/22/2009 Years since quittin.5 Smokeless tobacco: Never Vaping Use Vaping Use: Never used Substance Use Topics Alcohol use: No Drug use: No ALLERGIES Allergen Reactions Lisinopril Intolerance sleepy Pravastatin Contraindication-Medical Surgical myositis Zithromax [Azithrom* Abdominal cramping Medications: Current Outpatient Medications Medication Sig Dispense Refill topiramate (TOPAMAX) 100 mg tablet Take 1 tablet by mouth every evening. 90 tablet 3 levothyroxine (SYNTHROID) 100 mcg tablet TAKE 1 TABLET DAILY ON AN EMPTY STOMACH FOR THYROID 90 tablet 2 hydrOXYchloroQUINE (PLAQUENIL) 200 mg tablet TAKE 1 TABLET TWICE A DAY. 180 tablet 3 ezetimibe (ZETIA) 10 mg tablet Take 1 tablet by mouth once daily. 90 tablet 3 cholecalciferol (VITAMIN D3) 5,000 unit tab Take 1 tablet by mouth once daily. 90 tablet 3 folic acid 1 mg tablet Take 2 tablets by mouth once daily. 180 tablet 3 mometasone (ELOCON) 0.1 % cream Apply 1 application to affected area once daily. 120 g 3 metFORMIN ER (GLUCOPHAGE XR) 500 mg 24 hr tablet Take 1 tablet by mouth daily with breakfast. Forgot Rx when traveling, do not cancel [facility] Rx 90 tablet 3 lansoprazole (PREVACID) 30 mg capsule Take 1 capsule by mouth once daily. 90 capsule 3 sertraline (ZOLOFT) 100 mg tablet Take 1 tablet by mouth once daily. Forgot Rx when traveling, do not cancel [facility] Rx 90 tablet 3 diclofenac, EC, (VOLTAREN) 75 mg EC tablet Take 1 tablet by mouth twice daily. 180 tablet 3 omega-3 acid ethyl esters (LOVAZA) 1 gram capsule TAKE 2 CAPSULES ONCE DAILY 180 capsule 3 MV with Xrz-Aiovxzzk-Tonikr (CENTRUM SILVER) 0.4-300-250 mg-mcg-mcg tab Take 1 tablet by mouth oncedaily. 1 tablet 0 losartan (COZAAR) 100 mg tablet Take 1 tablet by mouth once daily. 90 tablet 3 No current facility-administered medications for this visit. Review of Systems Constitutional: Negative for chills, diaphoresis, fever, malaise/fatigue and weight loss. HENT: Negative for congestion, ear discharge, ear pain, hearing loss, nosebleeds, sinus pain, sore throat and tinnitus. Eyes: Negative for blurred vision, double vision, photophobia, pain, discharge and redness. Respiratory: Negative for cough, hemoptysis, sputum production, shortness of breath, wheezing and stridor. Cardiovascular: Negative for chest pain, palpitations, orthopnea, claudication, leg swelling and PND. Gastrointestinal: Negative for abdominal pain, blood in stool, constipation, diarrhea, heartburn, melena, nausea and vomiting. Genitourinary: Negative for dysuria, flank pain, frequency, hematuria and urgency. Musculoskeletal: Negative for back pain, falls, joint pain, myalgias and neck pain. Skin: Negative for itching and rash. Neurological: Negative for dizziness, tingling, tremors, sensory change, speech change, focal weakness, seizures, loss of consciousness, weakness and headaches. Endo/Heme/Allergies: Negative for environmental allergies and polydipsia. Does not bruise/bleed easily. Psychiatric/Behavioral: Negative for depression, hallucinations, memory loss, substance abuse and suicidal ideas. The patient is not nervous/anxious and does not have insomnia. Physical Examination: Vitals:BP 153/81 Pulse 78 Wt 279 lb (126.6kg) SpO2 95% BP w/Orthostatic Vitals Date and Time Orthostatic BP Orthostatic Pulse BP Pulse BP Position BP Site BP Cuff Size 11/08/23 1403 -- -- 153/81 78 -- -- -- Last 2 Encounter Wt Readings: Date: Wt: 11/08/2023 126.6 kg (279 lb) 06/16/2023 122.9 kg (271 lb) Physical Exam Constitutional: General: She is not in acute distress. Appearance: She is not diaphoretic. HENT: Head: Normocephalic and atraumatic. Right Ear: External ear normal. Left Ear: External ear normal. Nose: Nose normal. Mouth/Throat: Pharynx: Oropharynx is clear. Eyes: General: Right eye: No discharge. Left eye: No discharge. Conjunctiva/sclera: Conjunctivae normal. Pupils: Pupils are equal, round, and reactive to light. Cardiovascular: Rate and Rhythm: Normal rate and regular rhythm. Heart sounds: Normal heart sounds, S1 normal and S2 normal. No murmur heard. No friction rub. No gallop. No S3 or S4 sounds. Pulmonary: Effort: Pulmonary effort is normal. No respiratory distress. Breath sounds: Normal breath sounds. No wheezing or rales. Chest: Chest wall: No tenderness. Musculoskeletal: General: Normal range of motion. Cervical back: Normal range of motion and neck supple. Skin: General: Skin is warm and dry. Neurological: Mental Status: She is alert and oriented to person, place, and time. Psychiatric: Mood and Affect: Mood normal. Thought Content: Thought content normal. Judgment: Judgment normal. Pertinent Labs: CBC: Hemoglobin (g/dL) Date Value 02/09/2023 13.2 05/09/2021 13.9 Hematocrit (%) Date Value 02/09/2023 40.9 05/09/2021 42.9 WBC (k/uL) Date Value 02/09/2023 7.84 05/09/2021 8.71 Platelet Count (k/uL) Date Value 02/09/2023 275 05/09/2021 264 BMP: Glucose (mg/dL) Date Value 06/04/2023 119 05/09/2021 139 Potassium (mmol/L) Date Value 06/04/2023 5.0 05/09/2021 3.6 Sodium (mmol/L) Date Value 06/04/2023 146 05/09/2021 137 Chloride (mmol/L) Date Value 06/04/2023 107 05/09/2021 101 CO2 (mmol/L) Date Value 06/04/2023 27 05/09/2021 25 Creatinine (mg/dL) Date Value 06/04/2023 0.93 05/09/2021 0.70 BUN (mg/dL) Date Value 06/04/2023 25 05/09/2021 11 Anion Gap (mmol/L) Date Value 06/04/2023 12 05/09/2021 11 Calcium (mg/dL) Date Value 05/09/2021 9.4 Calcium, Total (mg/dL) Date Value 06/04/2023 10.3 INR: Lipid Profile: Cholesterol, Total Date Value Ref Range Status 11/23/2022 171 <200 mg/dL Final Comment: <200 mg/dL, Desirable 200-239 mg/dL, Borderline high >239 mg/dL, High HDL Cholesterol Date Value Ref Range Status 11/23/2022 38 (L) >39 mg/dL Final Comment: 40-59 mg/dL, Acceptable >59 mg/dL, High: Negative risk factor for coronary heart disease <40 mg/dL, Low: Positive risk factor for coronary heart disease LDL Cholesterol Date Value Ref Range Status 11/23/2022 114 (H) <100 mg/dL Final Comment: <100 mg/dL, Optimal 100-129 mg/dL, Near optimal/above optimal 130-159 mg/dL, Borderline high 160-189 mg/dL, High >189 mg/dL, Very high Secondary prevention optimal LDL Cholesterol levels are recommended to be < 70 mg/dL Triglyceride Date Value Ref Range Status 11/23/2022 93 <150 mg/dL Final Comment: <150 mg/dL, Normal 150-199 mg/dL, Borderline high 200-499 mg/dL, High >499 mg/dL, Very high Hemoglobin A1C: No results found for: HGBA1C TSH: No results found for: TSHREFL Prior Cardiac Testing EKG Assessment and Plan: 58 years old female patient hypertensive heart disease ASSESSMENT/PLAN: 1. Essential hypertension - ICD9: 401.9, ICD10: I10 (primary diagnosis) - Controlled - Continue current medications - Recommend home blood pressure monitoring, to bring results to next visit - Encouraged sodium restriction, DASH or Mediterranean diet - Recommend regular aerobic exercise - ECG COMPLETE 2. Hyperlipidemia, unspecified hyperlipidemia type - ICD9: 272.4, ICD10: E78.5 - Controlled - Continue current medications - Counseled on healthy diet and regular exercise - ECG COMPLETE 3. Preoperative clearance - ICD9: V72.84, ICD10: Z01.818 Cleared for her surgery with mild cardiac risk Felix Ornelas MD Follow up planning: ONE YEAR Electronically signed by Felix Ornelas MD on November 08, 2023, 2:34 PM The above note was partially created using a dictation recognition software. A reasonable attempt has been made to correct any errors. documented in this encounterReg[facility]05-29-2024 History of Present illness Narrative* Anastasiya Murphy RT(R) - 10/27/2023 3:00 PM EDT Radiology Service Progress Note PATIENT NAME: Berenice Givens DATE OF SERVICE: October 27, 2023 TIME: 3:00 PM PATIENT IDENTITY VERIFICATION COMPLETED USING TWO (2) IDENTIFIERS: Name and Date of confirmedby patient verbally. FALL SCREENING: Has the patient had 2 falls in the last year or 1 fall with injury or currently using an Ambulatory Assistive Device (Walker, Cane, Wheelchair, Crutches, etc.)? No PATIENT GENDER DATA: Female. status: : No status: NO. PATIENT RELEVANT IMPLANT DATA REVIEWED: Yes PATIENT PRESENTS WITH AN IMPLANTABLE OR ATTACHED CASING OPERATOR: No RADIOLOGY DEPARTMENT: MR; Exam(s) Completed: Spine: Lumbar spine PERIPHERAL IV DATA: Not applicable SIGNED BY: RT Prosper(R) October 27, 2023 3:00 PM documented in this encounterRegency Hospital [facility]05-24-2024 Nurse Note* Jodie Valerio MA - 10/22/2023 1:23 PM EDT PLQ eye exam done on 10/07/2023 at [facility] No evidence of PLQ toxicity. Report sent for scanning. Jodie Valerio MA [facility]05-24-2024 Nurse Note* Jodie Valerio MA - 10/22/2023 1:23 PM EDT PLQ eye exam done on 10/07/2023 at [facility] No evidence of PLQ toxicity. Report sent for scanning. Jodie Valerio MA documented in this encounterRegency Hospital Company05-02-2024 Reason for visit Narrative* Diagnostic Procedure Only (Routine) - Closed Specialty Diagnoses / Procedures Referred By Yuni t Referred To Contact Radiology / RADIO MRI [facility] Diagnoses MRI LUMBAR SPINE WO IVCON Order is under scanned docs 09/30/2023 Procedures MRI SPINAL CANAL LUMBAR W/O CONTRAST MATERIAL MRI WO SANDR[address] Elvia Baker MD [address] [place] [address] [facility] [address] [place] [address] Referral ID Status Reason Start Date Expiration Date Visits Re quested Visits Authorized [id number] Closed 10/04/2023 05/30/2024 1 1 [facility]04-25-2024 History of Present illness Narrative* Kusum Block PA-C - 09/23/2023 1:56 PM EDTAssociated Order(s): Large Joint Arthro/Inj: L knee joint Post-Procedure Diagnose(s): Arthritis of knee; Acute pain of left knee Kusum Block PA-C Department of Orthopaedics Orthopa[facility] [address] [address] Dept: [phone] September 23, 2023 CHIEF COMPLAINT: Established Patient, Knee Pain, and Injections of the Left Knee. ASSESSMENT: M25.562 Acute pain of left knee (primary encounter diagnosis) M17.10 Arthritis of knee SUMMARY/PLAN: Patient presents for a repeat left knee corticosteroid injection, last injection was very helpful. She was able to go to her trip to [place] without any discomfort. Only having some very intermittent episodes of pain where the knee amy. Otherwise is very happy. Will repeat the injections today. Large Joint Arthro/Inj: L knee joint Informed Consent Consent Obtained: Verbal [place] Protocol A moment to CARE was completed. SIGN IN Sign in communication not applicable due to emergent procedure. Personnel directly involved with the procedure wore the appropriate PPE. Special Equipment: N/A Patient/Surrogate Stated/Verified: Patient name, Date of , Relevant allergies and Intended procedure TIME OUT Intended patient and procedure match the source document(s). Relevant labs, photos, and/or imaging studies have been reviewed. Correct side/site marked and visible. Medications required for procedure verified. No fire risk assessment and interventions applicable. No implant(s) inserted. 09/23/2023 1:59 PM The procedure site was prepped in the usual sterile fashion. Site: L knee joint Medications: 6 mg betamethasone acetate-betamethasone sodium phosphate 6 mg/mL Anesthetics: 4 mL lidocaine (PF) 10 mg/mL (1 %) Outcome: Tolerated well, no immediate complications Post-injection instructions were reviewed with the patient and the patient voiced understanding of these instructions. SIGN OUT All instruments, equipment, possible retained foreign bodies accounted for. Ms. Berenice Givens was advised as to contrast therapies and/or to take analgesics/anti-inflammatories as needed and all contraindications were reviewed. Supporting Information Below: Medications: Current Outpatient Medications Medication Sig topiramate (TOPAMAX) 100 mg tablet Take 1 tablet by mouth every evening. levothyroxine (SYNTHROID) 100 mcg tablet TAKE 1 TABLET DAILY ON AN EMPTY STOMACH FOR THYROID hydrOXYchloroQUINE (PLAQUENIL) 200 mg tablet TAKE 1 TABLET TWICE A DAY. ezetimibe (ZETIA) 10 mg tablet Take 1 tablet by mouth once daily. cholecalciferol (VITAMIN D3) 5,000 unit tab Take 1 tablet by mouth once daily. folic acid 1 mg tablet Take 2 tablets by mouth once daily. mometasone (ELOCON) 0.1 % cream Apply 1 application to affected area once daily. metFORMIN ER (GLUCOPHAGE XR) 500 mg 24 hr tablet Take 1 tablet by mouth daily with breakfast. Forgot Rx when traveling, do not cancel [facility] Rx lansoprazole (PREVACID) 30 mg capsule Take 1 capsule by mouth once daily. sertraline (ZOLOFT) 100 mg tablet Take 1 tablet by mouth once daily. Forgot Rx when traveling, do not cancel [facility] Rx losartan (COZAAR) 25 mg tablet Take 3 tablets by mouth once daily. diclofenac, EC, (VOLTAREN) 75 mg EC tablet Take 1 tablet by mouth twice daily. omega-3 acid ethyl esters (LOVAZA) 1 gram capsule TAKE 2 CAPSULES ONCE DAILY MV with Ltf-Wyhiteqd-Tevknb (CENTRUM SILVER) 0.4-300-250 mg-mcg-mcg tab Take 1 tablet by mouth oncedaily. diclofenac (VOLTAREN) 1 % topical gel Apply 2 g to affected area two times a day. (Patient not taking: Reported on 09/23/2023) No current facility-administered medications for this visit. Allergies: Lisinopril, Pravastatin, and Zithromax [Azithromycin] This note was partially generated using [employer] voice recognition system, and there may be some incorrect words, spellings, and punctuation that were not noted in checking the note before saving. Kusum Block PA-C documented in this encounterRegency Hospital Company04-17-2024 Instructions* Patient Instructions* Keiko Maloney APRN.CNP - 09/15/2023 7:40 AM EDT Restart Topiramate. Take 50 mg (1/2 tablet) for 1 week. Then take 100 mg daily. documented in this encounterRegency Hospital Company04-17-2024 History of Present illness Narrative* Keiko Maloney APRN.CNP - 09/15/2023 7:30 AM EDT Images from the original note were not included. Headache Center - Follow up Virtual Visit Patient's headache clinic evaluation was scheduled as a virtual visit using the following platform [employer] I have communicated my name and active licensure. The patient's identity and physical location wereverified at the time of this visit. Either the patient or their legal patient representative has been informed of the risks and benefits of -- and alternatives to -- treatment through a remote evaluation andconsents to proceed with the evaluation remotely. Location: [place] Accompanied by: Self Primary Problem List: ACTIVE PROBLEM LIST Discoid Lupus Erythematosus of Eyelid CHOLECYSTITIS SEE ALSO GALLBLADDER CHRONIC Hypothyroidism Lupus Erythematosus Essential Hypertension Depressive Disorder, Not Elsewhere Classified Abdominal Pain, Epigastric Acute Gastritis Without Mention of Hemorrhage Diaphragmatic Hernia Without Mention of Obstruction Or Gangrene Hyperglycemia Statin Myopathy Hyperlipidemia Morbid Obesity (Hcc) Prediabetes Encounter for Long-Term (Current) Use of Medications Encounter for Screening for Malignant Neoplasm of Colon Gastroesophageal Reflux Disease Tibialis Tendinitis of Both Lower Extremities Peroneal Tendinitis of Both Lower Legs Migraine Without Aura and Without Status Migrainosus, Not Intractable Whitney (Dyspnea On Exertion) Obstructive Sleep Apnea Syndrome Renal Colic Tobacco Dependence in Remission Obesity, Class III, BMI >= 40 Post-Covid Chronic Headache Chief Complaint: Follow-up Impression and Plan from last visit: [facility] 03/05/[address] Isaac. Ms. Givens is a 58-year-old female with history significant for migraine, post COVID syndrome, tobacco use disorder, CHATO, HTN, hypothyroidism, depression, anxiety, GERD and lupus. At her last visit she was to continue Topamax. Interval Headache History: Migraines have been fairly well controlled. She ran out of medication and tried to see how she would do without it. She has been having increasing migraines since stopping. She typically is very wellcontrolled with Topamax. Headache 1 Location: At the vertex. Quality/Description: throbbing Associated Symptoms: Photophobia: yes Phonophobia: yes Nausea: yes Vomiting: no Worse with activity: yes Number of migraine headache days/month: 6 Number of headache free days/month: 10 Current preventive treatment: Topamax (she is out of the medication currently), Losartan (with PCP) Current abortive treatment: Diclofenac (with PCP) Triggers: None identified. Relieving factors: Medication, laying down, rest Positional changes: no Aura: none Days missed from work or school in the last month: 0 days Analgesic Diclofenac (Voltaren, Cataflam, Cambia) Anti-Convulsant Topiramate (Topamax, Trokendi XL, Qudexy) Anti-Depressant and Antipsychotic Bupropion (Wellbutrin) Sertraline (Zoloft) Blood Pressure Amlodipine Lisinopril (Zestril) Losartan (Cozaar) Propranolol (Inderal) Other Medications Dexamethasone (Decadron) Over the Counter Medications Acetaminophen (Tylenol) Acetaminophen/Aspirin/Caffeine (Excedrin, Goody s) Aspirin Ibuprofen (Advil, Motrin) Naproxen sodium (Aleve) PAST MEDICAL HISTORY Diagnosis Date Abdominal pain, epigastric Cigarette smoker 06/27/2021 Depressive disorder, not elsewhere classified Diaphragmatic hernia without mention of obstruction or gangrene Lupus erythematosus Migraine, unspecified, with intractable migraine, so stated, without mention of status migrainosus Migraine Obstructive sleep apnea syndrome, severe with associated hypoxemia. patient declined to schedule follow up testing for CPAP Unspecified essential hypertension PAST SURGICAL HISTORY Procedure Laterality Date CHOLECYSTECTOMY 10/03 Cholecystectomy COLONOSCOPY FLX DX W/COLLJ SPEC WHEN PFRMD 12/10/2017 Colonoscopy ESOPHAGOGASTRODUODENOSCOPY TRANSORAL DIAGNOSTIC EGD ESOPHAGOGASTRODUODENOSCOPY TRANSORAL DIAGNOSTIC 12/10/2017 EGD PAST SURGICAL HISTORY OF trigger finger PAST SURGICAL HISTORY OF heel spur PAST SURGICAL HISTORY OF carpal tunnel PAST SURGICAL HISTORY OF 03/09/12 endovenous laser ablation of L great saphenous vein, small saphenous vein and vein of Giacomini ALLERGIES Allergen Reactions Lisinopril Intolerance sleepy Pravastatin Contraindication-Medical Surgical myositis Zithromax [Azithrom* Abdominal cramping Issues and questions to be addressed: Medications hydrOXYchloroQUINE (PLAQUENIL) 200 mg tablet TAKE 1 TABLET TWICE A DAY. levothyroxine (SYNTHROID) 100 mcg tablet TAKE 1 TABLET DAILY ON AN EMPTY STOMACH FOR THYROID ezetimibe (ZETIA) 10 mg tablet Take 1 tablet by mouth once daily. diclofenac (VOLTAREN) 1 % topical gel Apply 2 g to affected area two times a day. cholecalciferol (VITAMIN D3) 5,000 unit tab Take 1 tablet by mouth once daily. folic acid 1 mg tablet Take 2 tablets by mouth once daily. mometasone (ELOCON) 0.1 % cream Apply 1 application to affected area once daily. metFORMIN ER (GLUCOPHAGE XR) 500 mg 24 hr tablet Take 1 tablet by mouth daily with breakfast. Forgot Rx when traveling, do not cancel [facility] Rx lansoprazole (PREVACID) 30 mg capsule Take 1 capsule by mouth once daily. sertraline (ZOLOFT) 100 mg tablet Take 1 tablet by mouth once daily. Forgot Rx when traveling, do not cancel [facility] Rx topiramate (TOPAMAX) 100 mg tablet Take 1 tablet by mouth every evening. losartan (COZAAR) 25 mg tablet Take 3 tablets by mouth once daily. diclofenac, EC, (VOLTAREN) 75 mg EC tablet Take 1 tablet by mouth twice daily. fluticasone (FLONASE) 50 mcg/actuation nasal spray Use 2 Sprays in each nostril once daily. Rinse mouth after use. loratadine (CLARITIN) 10 mg tablet Take 1 tablet by mouth once daily. omega-3 acid ethyl esters (LOVAZA) 1 gram capsule TAKE 2 CAPSULES ONCE DAILY MV with Vnm-Nokvfpcg-Rpbckw (CENTRUM SILVER) 0.4-300-250 mg-mcg-mcg tab Take 1 tablet by mouth oncedaily. I have reviewed the [place] Status Assessment responses and discussed these with the patient: Yes, Keiko Maloney APRN.CUSTOM APPLICATOR HEADACHE SCORES: 05/26/2021 02/26/2022 09/08/2023 Headache Questions ID Migraine Screener: 0 (Negative) ER visits in the last year: 0 ER visits since last office visit: 0 0 Hospital stays in the last year: 0 Hospital stays since last office visit 0 0 Limited ADLs in the last month: 0 0 0 Days missed from work or school in the last month: 0 0 0 Days headache pain free in the last month: 15 28 10 Days per month with ALL of the following symptoms - decreased productivity, light sensitivity and nausea: 0 0 6 Initial improvement of headache after botox injection at last visit: Not applicable, I did not havea botox injection at my last visit Not applicable, I did not have a botox injection at my last visit PRN medication usage in the last month: 10 0 12 Patient impression of improvement since last visit: Much improved Minimally worse 05/26/2021 02/26/2022 09/08/2023 HIT-6 HIT-6 56 (Substantial impact) 44 (Little or no impact) 46 (Little or no impact) 05/26/2021 02/26/2022 09/08/2023 JL - 2/7 SCORES JL-2 Score 3 3 2 JL-7 Score 9 9 02/26/2022 09/08/2023 Migraine Specific QOL - Higher scores indicate better HRQL Role Function-Restrictive Transformed Score (range: 0-100) 100 100 Role Function-Preventive Transformed Score (range: 0-100) 100 100 Emotional Function Transformed Score (range: 0-100) 100 100 05/26/2021 02/26/2022 09/08/2023 PHQ-9 Score 8 7 1 Studies to Review: Most recent labs reviewed. New Health Issues: No New Social History: No New Family History: No Review of Systems: Sleep: Wears CPAP and oxygen (2L) nightly. Weight stable Physical Examination: Vital Signs: There were no vitals taken for this visit. General: Well appearing, in no acute distress, alert. Pain Behaviors: No pain behaviors observed. Neurological: Mental Status: Alert and oriented to person, place and time. Affect is normal and appropriate. Speech is spontaneous and fluent without dysarthria, normal in rate, volume and articulation, and clear,coherent, and relevant. Short and terminal manager memory, cognition and general fund of knowledge are good. Attention span and concentration are excellent. HEENT: Head is normocephalic and features were symmetric. Musculoskeletal: Patient is able to sit upright throughout the appointment. Cranial Nerves: III, IV, -EOMI: full. VII-face is symmetric without evidence of weakness. VIII-hearing intact. IMPRESSION: Migraine without aura and without status migrainosus, not intractable (primary encounter diagnosis) Ms. Givens is a 58-year-old female with history significant for migraine, post COVID syndrome, tobacco use disorder, CHATO, HTN, hypothyroidism, depression, anxiety, GERD and lupus. Her headaches are most consistent with episodic migraine. She was previously well controlled with Topamax with infrequent migraine. She ran out of medication over a month ago and tried to see how she would do without it.Her migraines started to increase over this past month without Topamax so we will restart at this time. PLAN: HEADACHE MANAGEMENT: (You are the primary guardian of your health and headache. Keep track of all medications: This includes the reason for use, side effects and benefits.) MEDICATION TREATMENT: Abortive therapy: -Limit OTC medications to 10 days per month or less. Preventive therapy: -Restart Topamax as instructed. Headache education was done. Discussed triggers and lifestyle modifications. Discussed treatment options including preventive and acute medications, natural supplements, and infusion therapy. Discussed medication overuse headache and to limit use of acute treatments to no more than 2 days/week or 10 days/month. Discussed medication side effects, adverse reactions and drug interactions. Written patient instructions outlining all of the above were given. Follow-up: 6 months, PRN Level of service: Est level 2 (10-19 min). Time spent 18 min on the day of service, which included preparing to see the patient, [id number] patient care, completing clinical documentation, obtaining and/or reviewing separately obtained history, performing a medically appropriate examination, counseling and educating the patient/family/caregiver, and ordering medications, tests, or procedures. Keiko Maloney APRN.CUSTOM APPLICATOR documented in this encounterRegency Hospital Company04-15-2024 Miscellaneous Notes* Telephone Encounter - Crystal Pinto MD - 09/13/2023 1:02 PM EDT The following approved medication requests have been transmitted electronically. Requested Prescriptions Signed Prescriptions Disp Refills levothyroxine (SYNTHROID) 100 mcg tablet 90 tablet 2 Sig: TAKE 1 TABLET DAILY ON AN EMPTY STOMACH FOR THYROID Authorizing Provider: CRYSTAL PINTO MD Will get more refills at follow up appointment * Telephone Encounter - Marybeth Webb LPN - 09/13/2023 12:52 PM EDT Patient has been identified by name and date of : No Patient phones for refill(s): Requested Prescriptions Pending Prescriptions Disp Refills levothyroxine (SYNTHROID) 100 mcg tablet [Pharmacy Med Name: L-THYROXINE (SYNTHROID) TABS 100MCG] 90 tablet 3 Sig: TAKE 1 TABLET DAILY ON AN EMPTY STOMACH FOR THYROID Date of last office visit in primary care: 06/16/2023 Date of next office visit in primary care: 12/15/2023 Please advise. Thank you. Marybeth Webb LPN. documented in this encounterRegency Hospital Company04-01-2024 Miscellaneous Notes* Telephone Encounter - Keshia Givens RN - 08/30/2023 9:43 AM EDT Patient has been identified by name and date of : Yes RX INSTRUCTIONS: Patient aware RX will be sent to pharmacy. No need to notify patient. Last Plaquenil Eye Exam 09/14/2022-Left voicemail for patient to complete eye exam. LAST APPOINTMENT: 03/24/2023 UPCOMING APPOINTMENT: Visit date not found LABS: Hemoglobin (g/dL) Date Value 02/09/2023 13.2 05/09/2021 13.9 Hematocrit (%) Date Value 02/09/2023 40.9 05/09/2021 42.9 WBC (k/uL) Date Value 02/09/2023 7.84 05/09/2021 8.71 Platelet Count (k/uL) Date Value 02/09/2023 275 05/09/2021 264 AST Date Value Ref Range Status 02/09/2023 26 13 - 35 U/L Final ALT Date Value Ref Range Status 02/09/2023 25 7 - 38 U/L Final Creatinine Date Value Ref Range Status 06/04/2023 0.93 0.58 - 0.96 mg/dL Final No results found for: URICACID documented in this encounterRegency Hospital Company11-20-2023 Miscellaneous Notes* Telephone Encounter - Staci Osorio Ma - 04/19/2023 10:41 AM EST Patient notified. * Telephone Encounter - Mattie Somers APRN.CNP - 04/19/2023 10:27 AM EST Vit D level ordered as this has not been completed in over a year. Thank you Mattie Somers APRN.CNP * Telephone Encounter - Jeny Vincent OCCA - 04/19/2023 9:37 AM EST Patient has been identified by name and date of : Yes Patient phones for refill(s): Requested Prescriptions Pending Prescriptions Disp Refills cholecalciferol (VITAMIN D3) 5,000 unit tab 90 tablet 3 Sig: Take 1 tablet by mouth once daily. Date of last office visit in primary care: 02/26/2023 with Santosh Date of next office visit in primary care: 06/16/2023 Last 2 Encounter Wt Readings: Date: Wt: 03/24/2023 123.4 kg (272 lb) 02/26/2023 122 kg (269 lb) Please advise. Thank you. RUTH Almaguer. documented in this encounterRegency Hospital Company10-25-2023 History of Present illness Narrative* Darrell Jack MD - 03/24/2023 10:39 AM EDT On 03/24/2023, I had the pleasure of evaluating Berenice Givens in a follow-up [facility] Rheumatology [facility] for inflammatory arthritis. HPI: To review, Berenice Givens is a 58 year old female (goes by Kate) - At age 23, noted onset of malar rash (which was incorrectly diagnosed and managed as acne x1 year), joint pain (including knees), photosensitivity and mouth sores. Diagnosed with SLE. Was initiallytreated with injections (she's guessing of steroids), which stopped as it got to be too much (wouldhave 18 facial injections at a time) - In , started on HCQ with significant improvement in rash and joint pain - In November, reported pain in the R 2nd MCP, bilateral DIPs, hips, knees, ankles, low back and neck. Had injections of the spine, neck helped more than low back but low back injections helped a little. PT done in for tibialis tendinitis of both ankles without relief. Most concerning area of pain was the low back, ankles and hands. - In Jan, reported diclofenac PO which works a lot better for her than tylenol. Increased HCQ dose given US synovitis and pain in the bilateral wrists and MCPs, some in the PIPs - In May, reported some improvement with higher HCQ dose - Today, reports things are going well with the higher HCQ dose. Recently injured back after picking something up, on the mend. - Last plaquenil eye exam normal in August PAST MEDICAL HISTORY Diagnosis Date Abdominal pain, epigastric Cigarette smoker 06/27/2021 Depressive disorder, not elsewhere classified Diaphragmatic hernia without mention of obstruction or gangrene Lupus erythematosus Migraine, unspecified, with intractable migraine, so stated, without mention of status migrainosus Migraine Obstructive sleep apnea syndrome, severe with associated hypoxemia. patient declined to schedule follow up testing for CPAP Unspecified essential hypertension GERD PAST SURGICAL HISTORY Procedure Laterality Date CHOLECYSTECTOMY 10/03 Cholecystectomy COLONOSCOPY FLX DX W/COLLJ SPEC WHEN PFRMD 12/10/2017 Colonoscopy ESOPHAGOGASTRODUODENOSCOPY TRANSORAL DIAGNOSTIC EGD ESOPHAGOGASTRODUODENOSCOPY TRANSORAL DIAGNOSTIC 12/10/2017 EGD PAST SURGICAL HISTORY OF trigger finger PAST SURGICAL HISTORY OF heel spur PAST SURGICAL HISTORY OF carpal tunnel PAST SURGICAL HISTORY OF 03/09/12 endovenous laser ablation of L great saphenous vein, small saphenous vein and vein of Giacomini ALLERGIES Allergen Reactions Lisinopril Intolerance sleepy Pravastatin Contraindication-Medical Surgical myositis Zithromax [Azithrom* Abdominal cramping MEDICATIONS: Current Outpatient Medications Medication Sig folic acid 1 mg tablet Take 2 tablets by mouth once daily. mometasone (ELOCON) 0.1 % cream Apply 1 application to affected area once daily. hydrOXYchloroQUINE (PLAQUENIL) 200 mg tablet Take 1 tablet by mouth twice daily. Forgot Rx when traveling, do not cancel [facility] Rx metFORMIN ER (GLUCOPHAGE XR) 500 mg 24 hr tablet Take 1 tablet by mouth daily with breakfast. Forgot Rx when traveling, do not cancel [facility] Rx lansoprazole (PREVACID) 30 mg capsule Take 1 capsule by mouth once daily. sertraline (ZOLOFT) 100 mg tablet Take 1 tablet by mouth once daily. Forgot Rx when traveling, do not cancel [facility] Rx topiramate (TOPAMAX) 100 mg tablet Take 1 tablet by mouth every evening. losartan (COZAAR) 25 mg tablet Take 3 tablets by mouth once daily. diclofenac, EC, (VOLTAREN) 75 mg EC tablet Take 1 tablet by mouth twice daily. levothyroxine (LEVOXYL) 100 mcg tablet Take 1 tablet by mouth once daily. Take on empty stomach. For Thyroid. ezetimibe (ZETIA) 10 mg tablet Take 1 tablet by mouth once daily. fluticasone (FLONASE) 50 mcg/actuation nasal spray Use 2 Sprays in each nostril once daily. Rinse mouth after use. loratadine (CLARITIN) 10 mg tablet Take 1 tablet by mouth once daily. cholecalciferol (VITAMIN D3) 5,000 unit tab Take 1 tablet by mouth once daily. omega-3 acid ethyl esters (LOVAZA) 1 gram capsule TAKE 2 CAPSULES ONCE DAILY MV with Scu-Xizdnspm-Nsjiyu (CENTRUM SILVER) 0.4-300-250 mg-mcg-mcg tab Take 1 tablet by mouth oncedaily. No current facility-administered medications for this visit. FAMILY HISTORY Problem Relation Age of Onset Cancer Paternal Grandfather Lung Diabetes Mother Alzheimer's Disease Mother Heart Maternal Grandfather Alzheimer's Disease Maternal Grandmother Alzheimer's Disease Maternal Aunt Alzheimer's Disease Maternal Uncle Alzheimer's Disease Maternal Uncle Breast Cancer Sister bilateral mastectomy SOCIAL HISTORY: Lives in [place] with spouse. 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 CONSTITUTIONAL: Well-appearing, in NAD. SKIN: No rash. No alopecia. No sclerodactyly, calcinosis, telangiectasias, digital ulcers, or skin thickening. EYES: No scleral icterus or conjunctivitis ENT and Mouth: External ears normal. Nares normal. RESPIRATORY: Normal breath sounds, clear to auscultation. CARDIOVASCULAR: Regular rate and rhythm, no murmurs or rubs EXTREMITIES/LYMPH: No edema bilaterally NEURO: Awake, alert and oriented, normal gait MUSCULOSKELETAL: JOINT APPEARANCE: No erythema or warmth of any upper or lower extremity joint. RANGE OF MOTION: Able to fully close fists and curl fingers bilaterally. SWOLLEN JOINTS/SYNOVITIS: No synovitis of any joint. TENDER JOINTS: None *November Widespread Pain Index: 4 (0-19) Symptoms Severity Scale: 7 (0-12) WPI>7 and SS Scale>5 OR WPI 3-6 and SS Scale >9 consistent with fibromyalgia LABORATORY: Component Latest Ref Rng & Units 02/09/2023 WBC 3.70 - 11.00 k/uL 7.84 RBC 3.90 - 5.20 m/uL 4.41 Hemoglobin 11.5 - 15.5 g/dL 13.2 Platelet Count 150 - 400 k/uL 275 Creatinine 0.58 - 0.96 mg/dL 0.77 eGFR >=60 mL/min/1.73m 90 AST 13 - 35 U/L 26 ALT 7 - 38 U/L 25 Component Latest Ref Rng & Units 12/23/2021 Protein, Urine Random 0 - 20 mg/dL 8 Creatinine, Ur Random (UCRR) 20.0 - 300.0 mg/dL 105.4 Protein/Creat Ratio <0.2 0.1 Sm Antibody Negative Negative Anti-Sm <1.0 AI 0.2 CEMENT RUBBER Antibody QUAL Negative Negative Anti-CEMENT RUBBER <1.0 AI 0.9 SSA Antibody Qual Negative Negative Anti-SSA <1.0 AI <0.2 Anti-SSB <1.0 AI <0.2 SSB Antibody Qual Negative Negative CENTROMERE AB QUAL Negative Negative Centromere Ab <1.0 AI <0.2 Scleroderma Ab Qual Negative Negative Scl-70 Abs, EIA <1.0 AI <0.2 ROSEANNE 1 ANTIBODY QUAL Negative Negative Roseanne 1 Antibody <1.0 AI <0.2 Ribosomal CEMENT RUBBER Qualitative Negative Negative Ribosomal CEMENT RUBBER Ab <1.0 AI <0.2 Chromatin Ab Qual Negative Negative Chromatin Ab <1.0 AI <0.2 MARCUS Negative Negative DNA Antibody w/Confirmation <30 IU/mL 22.27 C3 86 - 166 mg/dL 177 (H) C4 13 - 46 mg/dL 28 CRP <0.9 mg/dL 1.1 (H) WSR 0 - 20 mm/hr 30 (H) Rheumatoid Factor <16 IU/mL <10 Hemoglobin/Blood,Ur Negative Negative Component Latest Ref Rng & Units 02/26/2022 CCP Antibody IgG Qualitative Negative Negative CCP Antibody, IgG <20 Units <15 Component Latest Ref Rng & Units 07/16/2014 02/19/2021 05/09/2021 08/13/2021 MARCUS NEGAT Negative MARCUS Titer NEGAT Negative MARCUS Pattern Not applicable for negative result. CCP Antibody, IgG <20 Units <15 Rheumatoid Factor <20 IU/mL <10 WSR 0 - 20 mm/hr 22 (H) CRP <0.9 mg/dL 1.3 (H) PTH, Intact 15 - 65 pg/mL 42 TSH 0.270 - 4.200 mIU/L 0.889 STUDIES: *Oct xray feet- BILATERAL PES PLANUS. BILATERAL CALCANEAL ENTHESOPHYTES, LARGER ON THE LEFT. PROGRESSION OF DEGENERATIVE CHANGES OF THE TIBIOTALAR AND TALONAVICULAR JOINT ON THE LEFT. THE RIGHT FOOT IS UNCHANGED *Jan US wrist/hand- MILD SCATTERED ACTIVE SYNOVITIS, DETAILED. L side: 3rd MCP, radiocarpal and carpal joints. R side: 2nd MCP *November xray hands/l-spine- DJD of hands/l-spine *Jan CT chest- No CT evidence of pulmonary embolism. Lung parenchyma and airways: The central airways are patent. A band like opacity noted in the left lower lobe, likely representing subsegmental atelectasis; otherwise the lungs are clear of consolidations. There appears to be a 3 mm nodule in the juxtapleural area in the right upper lobe, series 6 image 51. No masses identified. Pleural space: No pleural effusion or pneumothorax. No pleural thickening. Lower neck, lymph nodes, and mediastinum: The imaged thyroid gland is normal. No lymphadenopathy in the supraclavicular, axillary, mediastinal, or hilar regions. *Apr xray feet- HALLUX VALGUS WITH MIDFOOT DEGENERATIVE CHANGES AND CALCANEAL ENTHESOPHYTES ON THE LEFT. CALCANEAL ENTHESOPHYTE AT THE PLANTAR FASCIA AND ACHILLES TENDON INSERTION ON THE RIGHT WITH EVIDENCE FOR REMOTE LIGAMENT INJURY. TALUS IMPRESSION and PLAN: 1. Inflammatory arthritis: Prior dx of SLE with history of malar rash, photosensitivity, mouth sores and joint pain with significant improvement s/p HCQ initiation, negative [facility] MARCUS by IFA on multiple occasions. Seronegative RA is a possibility too. US with mild synovitis of the wrist and multiple bilateral MCPs. Continued to have wrist and MCP pain bilaterally so increased to HCQ 200mg bid with significant improvement. Stable. - Continue to HCQ 200mg bid along with routine eye exams, last normal in August 2. Generalized osteoarthritis: Hands (per exam), likely spine, knees. Tylenol alone ineffective - Diclofenac prn. R/B/A of NSAIDs discussed in the past - Given referrals to PT and spine clinic in the past 3. General health maintenance: - Completed the covid vaccination series in August, Feb. - Continue follow-up with PCP for routine health maintenance and malignancy screening Follow-up in 12 months with me (deferred a sooner apt). Thank you for allowing me to participate in the care of your patient. Darrell Jack MD documented in this encounterRegency Hospital Company09-29-2023 Instructions* Patient Instructions* Mattie Somers APRN.CNP - 02/26/2023 1:37 PM EDT Recommended Vaccines by CDC for traveling to [facility]: Cholera Hepatitis A and B Rabies? Typhoid Yellow Fever Need to get updated tetanus Tdap vaccine as well. Malaria preventative - On hydroxychloroquine. documented in this encounterRegency Hospital Company09-29-2023 History of Present illness Narrative* Mattie Somers APRN.CNP - 02/26/2023 1:11 PM EDT CC: Patient presents with: Recheck: 6 month follow up Immunizations: Flu vaccination HPI Berenice Givens is a 57 year old female who presents today for routine follow up but wanting advice of vaccinations for a trip to [facility] [place] in July. Lupus: Sees rheumatology and on Hydroxychlorquine. Uses mometazone for facial rash. Feels well controlled on this treatment. HTN and HLD: Ms. Givens indicates that she is feeling well and denies any symptoms referable to elevated blood pressure. Specifically denies headache, chest pain, palpitations, dyspnea, and peripheraledema. Patient denies any side effects of her medication(s) and is compliant with their regimen. She does check BP's away from this office with average BP's in the 110s/60s range. Berenice walking 2 miles a day. She watches her diet for sodium, low fat and low cholesterol most of the time. Last 3 Encounter BP Readings: Date: BP: 02/26/2023 140/72 10/08/2022 132/73 08/25/2022 134/74 Prediabetes: Ms. Givens denies excessive thirst or increased frequency of urination, chest pain or dyspnea , numbness, tingling or pain in extremities, new or unusual visual symptoms, low sugar/hypoglycemic reactions, weight loss/gain, lightheadedness/dizziness, and bowel changes/loose stools. Follows a diabetic diet most of the time. She is compliant with medication(s) and is tolerating med(s) without any side effects. She reports checking her glucose on a once a day schedule with sugars in thefasting 90s range. Patient's last HgA1C was Hemoglobin A1C (%) Date Value 02/09/2023 5.4 02/20/2022 5.7 05/09/2021 6.0 08/01/2020 6.3 ) GERD: Controlled well with current treatment and has been on this since the . Denies heartburn, difficulty swallowing, or abdominal pain. Depression and Anxiety: Controlled with current treatment Sleep: is described as normal Alcohol use: does not drink any alcohol Drug use: marijuana gummies to help sleep Appetite: good Stresses: Denies any major stressor. Suicidal Thoughts: No suicidal ideation, intent or plan Support: Comes from multiple sources including family and friends Hypothyroidism: Takes medication as prescribed. Denies abnormal change in weight or energy. REVIEW OF SYSTEMS See HPI PAST MEDICAL HISTORY Diagnosis Date Abdominal pain, epigastric Cigarette smoker 06/27/2021 Depressive disorder, not elsewhere classified Diaphragmatic hernia without mention of obstruction or gangrene Lupus erythematosus Migraine, unspecified, with intractable migraine, so stated, without mention of status migrainosus Migraine Obstructive sleep apnea syndrome, severe with associated hypoxemia. patient declined to schedule follow up testing for CPAP Unspecified essential hypertension PAST SURGICAL HISTORY Procedure Laterality Date CHOLECYSTECTOMY 10/03 Cholecystectomy COLONOSCOPY FLX DX W/COLLJ SPEC WHEN PFRMD 12/10/2017 Colonoscopy ESOPHAGOGASTRODUODENOSCOPY TRANSORAL DIAGNOSTIC EGD ESOPHAGOGASTRODUODENOSCOPY TRANSORAL DIAGNOSTIC 12/10/2017 EGD PAST SURGICAL HISTORY OF trigger finger PAST SURGICAL HISTORY OF heel spur PAST SURGICAL HISTORY OF carpal tunnel PAST SURGICAL HISTORY OF 03/09/12 endovenous laser ablation of L great saphenous vein, small saphenous vein and vein of Giacomini ALLERGIES Lisinopril, Pravastatin, and Zithromax [Azithromycin] MEDICATIONS hydrOXYchloroQUINE (PLAQUENIL) 200 mg tablet Take 1 tablet by mouth twice daily. Forgot Rx when traveling, do not cancel [facility] Rx metFORMIN ER (GLUCOPHAGE XR) 500 mg 24 hr tablet Take 1 tablet by mouth daily with breakfast. Forgot Rx when traveling, do not cancel [facility] Rx lansoprazole (PREVACID) 30 mg capsule Take 1 capsule by mouth once daily. sertraline (ZOLOFT) 100 mg tablet Take 1 tablet by mouth once daily. Forgot Rx when traveling, do not cancel [facility] Rx topiramate (TOPAMAX) 100 mg tablet Take 1 tablet by mouth every evening. losartan (COZAAR) 25 mg tablet Take 3 tablets by mouth once daily. diclofenac, EC, (VOLTAREN) 75 mg EC tablet Take 1 tablet by mouth twice daily. levothyroxine (LEVOXYL) 100 mcg tablet Take 1 tablet by mouth once daily. Take on empty stomach. For Thyroid. ezetimibe (ZETIA) 10 mg tablet Take 1 tablet by mouth once daily. fluticasone (FLONASE) 50 mcg/actuation nasal spray Use 2 Sprays in each nostril once daily. Rinse mouth after use. (Patient not taking: Reported on 07/20/2022) loratadine (CLARITIN) 10 mg tablet Take 1 tablet by mouth once daily. (Patient not taking: Reportedon 07/20/2022) cholecalciferol (VITAMIN D3) 5,000 unit tab Take 1 tablet by mouth once daily. omega-3 acid ethyl esters (LOVAZA) 1 gram capsule TAKE 2 CAPSULES ONCE DAILY folic acid 1 mg tablet Take 2 tablets by mouth once daily. mometasone (ELOCON) 0.1 % cream Apply 1 application to affected area once daily. albuterol HFA (PROVENTIL HFA, VENTOLIN HFA) 90 mcg/actuation inhaler Inhale 2 Puffs as instructed every 6 hours as needed for Wheezing/Shortness of Breath. MV with Oix-Tbpipikr-Hurxsn (CENTRUM SILVER) 0.4-300-250 mg-mcg-mcg tab Take 1 tablet by mouth oncedaily. FAMILY HISTORY Problem Relation Age of Onset Cancer Paternal Grandfather Lung Diabetes Mother Alzheimer's Disease Mother Heart Maternal Grandfather Alzheimer's Disease Maternal Grandmother Alzheimer's Disease Maternal Aunt Alzheimer's Disease Maternal Uncle Alzheimer's Disease Maternal Uncle Breast Cancer Sister bilateral mastectomy Social History Tobacco Use Smoking status: Former Packs/day: 0.50 Years: 20.00 Additional pack years: 0.00 Total pack years: 10.00 Types: Cigarettes Quit date: 04/22/2009 Years since quittin.8 Smokeless tobacco: Never Vaping Use Vaping Use: Never used Substance Use Topics Alcohol use: No Drug use: No PHYSICAL EXAM BP 140/72 Pulse 68 Resp 16 Wt 122 kg (269 lb) SpO2 97% BMI 40.90 kg/m General Appearance: well appearing, in no acute distress, alert Pysch: mood and affect broad and appropriate Skin: Skin color, texture, turgor normal for age; Eyes: conjunctiva pink and moist, no icterus, sclera white, non-injected Neck: Thyroid normal size and symmetric without palpable nodules, No adenopathy Lymph nodes: No cervical lymphadenopathy and No supraclavicular lymphadenopathy Lungs: Lungs clear to auscultation. No wheezing, rhonchi, rales. Heart: RRR without murmur, gallop, or rubs. No ectopy Health maintenance reviewed with patient: Hepatitis B Vaccine(1 of 3 - 3-dose series) Never done BP Controlled (<130/80) Never done Shingrix Vaccine(1 of 2) Never done DTaP,Tdap,Td Vaccine(3 - Td or Tdap) due on 03/02/2021 Pap Testing due on 08/11/2022 Influenza Vaccine(1) due on 01/29/2023 Annual PCP Team Chronic Disease Visit due on 08/26/2023 Mammogram Screening due on 12/09/2023 HPV Testing due on 09/26/2024 Diabetes Screening due on 02/09/2026 Lipid Screening due on 11/24/2027 Colorectal Cancer Screening due on 12/11/2027 Hepatitis C Screening Completed HIV Screening Completed Covid-19 Vaccine Completed DATA REVIEWED: Most recent labs ASSESSMENT/PLAN: 1. Essential hypertension - ICD9: 401.9, ICD10: I10 (primary diagnosis) - Home blood pressure readings controlled - Continue current medications - Recommend home blood pressure monitoring, to bring results to next visit - Encouraged sodium restriction, DASH or Mediterranean diet - Recommend regular aerobic exercise 2. Mixed hyperlipidemia - ICD9: 272.2, ICD10: E78.2 - Controlled - Continue current medications - Counseled on healthy diet and regular exercise - Discussed need for and benefit of weight loss. BMI 40.90 kg/(m^2) 3. Lupus erythematosus, unspecified form - ICD9: 695.4, ICD10: L93.0 - continue with recommendations by rheumatology and current treatment plan - MOMETASONE 0.1 % TOPICAL CREAM 4. Prediabetes - ICD9: 790.29, ICD10: R73.03 - well controlled at this time - continue with healthy lifestyle choices and weight loss to continue to improve glucose control. 5. Acquired hypothyroidism - ICD9: 244.9, ICD10: E03.9 - Instructed patient on importance of taking on an empty stomach either first thing in the morning or at bedtime. - asymptomatic - TSH within acceptable ranges 6. Depression with anxiety - ICD9: 300.4, ICD10: F41.8 - controlled well with treatment at this time - Reviewed concept of neurochemical imbalance wth depression/anxiety, treatment options and benefits of counseling in combination with medication. Also reviewed benefits of sleep hygeine, diet and exercise - Instructed patient to contact office or [id number] after-hours promptly should condition worsen or any new symptoms appear. - [facility] and after hours crisis line 7. Gastroesophageal reflux disease, unspecified whether esophagitis present - ICD9: 530.81, ICD10: K21.9 - controlled but has been on PPI for 30 years. Discuss starting to take every other for the next few months to see if symptoms return. - Discussed lifestyle modifications including losing weight, limiting caffeine, no meals three hours before sleep, and head of bed elevation 8. Travel advice encounter - ICD9: V65.49, ICD10: Z71.84 - getting flu vaccine today - patient to call health department in regards to getting recommended vaccinations. Call soon as some of these are a series. - Rabies recommended but patient is not sure she wants to get this but is aware for any animal bite, go to ER for rabies treatment Needed vaccines/preventatives: - cholera - hepatitis A - Hepatitis B - Typhoid - Yellow fever - Malaria: Is already on hydroxychloroquine. 9. Need for influenza vaccination - ICD9: V04.81, ICD10: Z23 - INFLUENZA VACCINE, AGE 6 MO - 64 YR, QUADRIVALENT (AFLURIA, FLULAVAL, FLUZONE) I spent 35 minutes in the visit, with more than 50% of the total [id number]-ag-[id number] time of the visit in counseling / coordination of care. Prescription instructions reviewed with patient as applicable. Potential red flag symptoms discussed with the patient. Reviewed appropriate action plan to take if red flag symptoms occur. Patient agreeable to treatment plan. Mattie Somers APRN.CNP documented in this encounterRegency Hospital Company08-25-2023 Miscellaneous Notes* Telephone Encounter - Emanuel Palomares APRN.CNP - 01/22/2023 1:33 PM EDT The following approved medication requests have been transmitted electronically. Requested Prescriptions Signed Prescriptions Disp Refills hydrOXYchloroQUINE (PLAQUENIL) 200 mg tablet 180 tablet 1 Sig: Take 1 tablet by mouth twice daily. Forgot Rx when traveling, do not cancel [facility] Authorizing Provider: EMANUEL PALOMARES APRN.CNP * Telephone Encounter - Johnson Dailey MA - 01/22/2023 1:07 PM EDT Patient has been identified by name and date of : Yes RX INSTRUCTIONS: Patient aware RX will be sent to pharmacy. No need to notify patient. PLQ eye exam done on 09/14/2022 by Jose Gimenez O.D. No evidence of PLQ toxicity. LAST APPOINTMENT: 10/08/2022 UPCOMING APPOINTMENT: 03/24/2023 LABS: Hemoglobin (g/dL) Date Value 08/20/2022 13.3 05/09/2021 13.9 Hematocrit (%) Date Value 08/20/2022 41.2 05/09/2021 42.9 WBC (k/uL) Date Value 08/20/2022 8.96 05/09/2021 8.71 Platelet Count (k/uL) Date Value 08/20/2022 291 05/09/2021 264 AST Date Value Ref Range Status 08/20/2022 30 13 - 35 U/L Final ALT Date Value Ref Range Status 08/20/2022 30 7 - 38 U/L Final Creatinine Date Value Ref Range Status 08/20/2022 0.80 0.58 - 0.96 mg/dL Final No results found for: URICACID Johnson Dailey MA documented in this encounterRegency Hospital Company07-31-2023 Miscellaneous Notes* Telephone Encounter - Senait Ngo Ma - 12/28/2022 11:08 AM EDT Patient is requesting refill on medication Please advise and send in. Last seen 02/2022 no other visits scheduled. [facility], [facility] I [facility] in. Patient has been identified by name and date of : Yes Requested Prescriptions Pending Prescriptions Disp Refills topiramate (TOPAMAX) 100 mg tablet 90 tablet 1 Sig: Take 1 tablet by mouth every evening. RX INSTRUCTIONS: Patient aware RX will be sent to pharmacy. No need to notify patient. Senait Ngo Ma documented in this encounterRegency Hospital Company05-11-2023 History of Present illness Narrative* Emanuel Palomares APRN.CUSTOM APPLICATOR - 10/08/2022 1:00 PM EDT [facility] for SLE. HPI: To review, Berenice Givens is a 57 year old female (goes by Kate) - At age 23, noted onset of malar rash (which was incorrectly diagnosed and managed as acne x1 year), joint pain (including knees), photosensitivity and mouth sores. Diagnosed with SLE. Was initiallytreated with injections (she's guessing of steroids), which stopped as it got to be too much (wouldhave 18 facial injections at a time) - In , started on HCQ with significant improvement in rash and joint pain - In November, reported pain in the R 2nd MCP, bilateral DIPs, hips, knees, ankles, low back and neck. Had injections of the spine, neck helped more than low back but low back injections helped a little. PT done in for tibialis tendinitis of both ankles without relief. Most concerning area of pain was the low back, ankles and hands. - in 01/2022, reports trying tylenol x3 weeks which made things worse-every part of her body hurt with this. Went back on diclofenac PO which works a lot better for her. - Has pain in the bilateral wrists and MCPs, some in the PIPs - Last plaquenil eye exam normal in August PAST MEDICAL HISTORY Diagnosis Date Abdominal pain, epigastric Cigarette smoker 06/27/2021 Depressive disorder, not elsewhere classified Diaphragmatic hernia without mention of obstruction or gangrene Lupus erythematosus Migraine, unspecified, with intractable migraine, so stated, without mention of status migrainosus Migraine Obstructive sleep apnea syndrome, severe with associated hypoxemia. patient declined to schedule follow up testing for CPAP Unspecified essential hypertension GERD PAST SURGICAL HISTORY Procedure Laterality Date CHOLECYSTECTOMY 10/03 Cholecystectomy COLONOSCOPY FLX DX W/COLLJ SPEC WHEN PFRMD 12/10/2017 Colonoscopy ESOPHAGOGASTRODUODENOSCOPY TRANSORAL DIAGNOSTIC EGD ESOPHAGOGASTRODUODENOSCOPY TRANSORAL DIAGNOSTIC 12/10/2017 EGD PAST SURGICAL HISTORY OF trigger finger PAST SURGICAL HISTORY OF heel spur PAST SURGICAL HISTORY OF carpal tunnel PAST SURGICAL HISTORY OF 03/09/12 endovenous laser ablation of L great saphenous vein, small saphenous vein and vein of Giacomini ALLERGIES Allergen Reactions Lisinopril Intolerance sleepy Pravastatin Contraindication-Medical Surgical myositis Zithromax [Azithrom* Abdominal cramping INTERVAL HISTORY She is here for follow up. She reports one minor flare since the ZARA, with increased stiffness to hands. Otherwise, she statesher joint symptoms have been tolerable. Pain is worst in the morning and at night. Takes medical marijuana gummies. She also takes diclofenac. Sites of pain: no current pain Joint swelling: none EMS: yes, lasting 60 minutes No recent infections. Tolerating meds. Answers submitted by the patient for this visit: Review of Systems Rheumatology (Submitted on 10/01/2022) Fever : No Recent Unintentional Weight Change: No Eye Pain: No Eye Redness: No Vision Disturbance: No Eye Dryness: No Nose Bleeds: No Sores in your Mouth: No Trouble Swallowing: No Dry Mouth: No Chest Pain: No Leg Swelling: No A Cough: No Shortness of Breath: Yes Pain with Breathing: No Heartburn: No Abdominal Pain: No Diarrhea: No Black Tarry Stools: No Blood in Urine: No Pain or Burning with Urination: No Joint Pain or Stiffness: Yes Muscle Weakness: Yes Muscle Aches: Yes Joint Swelling: Yes Morning Stiffness in Joints: Yes A Rash: No Skin Color Changes: No Hair Loss: No Nail Changes: No Headaches: No Numbness: No Memory Loss: No Swollen Glands: No Current Outpatient Medications Medication Sig losartan (COZAAR) 25 mg tablet Take 3 tablets by mouth once daily. diclofenac, EC, (VOLTAREN) 75 mg EC tablet Take 1 tablet by mouth twice daily. levothyroxine (LEVOXYL) 100 mcg tablet Take 1 tablet by mouth once daily. Take on empty stomach. For Thyroid. ezetimibe (ZETIA) 10 mg tablet Take 1 tablet by mouth once daily. fluticasone (FLONASE) 50 mcg/actuation nasal spray Use 2 Sprays in each nostril once daily. Rinse mouth after use. (Patient not taking: Reported on 07/20/2022) loratadine (CLARITIN) 10 mg tablet Take 1 tablet by mouth once daily. (Patient not taking: Reportedon 07/20/2022) cholecalciferol (VITAMIN D3) 5,000 unit tab Take 1 tablet by mouth once daily. topiramate (TOPAMAX) 100 mg tablet Take 1 tablet by mouth every evening. lansoprazole (PREVACID) 30 mg capsule Take 1 capsule by mouth once daily. metFORMIN ER (GLUCOPHAGE XR) 500 mg 24 hr tablet Take 1 tablet by mouth daily with breakfast. Forgot Rx when traveling, do not cancel [facility] omega-3 acid ethyl esters (LOVAZA) 1 gram capsule TAKE 2 CAPSULES ONCE DAILY folic acid 1 mg tablet Take 2 tablets by mouth once daily. mometasone (ELOCON) 0.1 % cream Apply 1 application to affected area once daily. sertraline (ZOLOFT) 100 mg tablet Take 1 tablet by mouth once daily. Forgot Rx when traveling, do not cancel [facility] hydrOXYchloroQUINE (PLAQUENIL) 200 mg tablet Take 1 tablet by mouth twice daily. Forgot Rx when traveling, do not cancel [facility] albuterol HFA (PROVENTIL HFA, VENTOLIN HFA) 90 mcg/actuation inhaler Inhale 2 Puffs as instructed every 6 hours as needed for Wheezing/Shortness of Breath. MV with Efu-Drugvuhr-Jaahjo (CENTRUM SILVER) 0.4-300-250 mg-mcg-mcg tab Take 1 tablet by mouth oncedaily. No current facility-administered medications for this visit. FAMILY HISTORY Problem Relation Age of Onset Cancer Paternal Grandfather Lung Diabetes Mother Alzheimer's Disease Mother Heart Maternal Grandfather Alzheimer's Disease Maternal Grandmother Alzheimer's Disease Maternal Aunt Alzheimer's Disease Maternal Uncle Alzheimer's Disease Maternal Uncle Breast Cancer Sister bilateral mastectomy SOCIAL HISTORY: Lives in [place] with spouse. Retired from working at a [employer] Tobacco use: None Alcohol use: None Drug use: None PHYSICAL EXAMINATION: BP 132/73 Pulse 75 Temp 37 C (98.6 F) (Temporal) Wt 119.7 kg (264 lb) SpO2 95% BMI 40.14 kg/m General appearance: Well appearing, alert, in no acute distress, well-hydrated, well nourished. Skin: Skin color, texture, turgor normal, no suspicious rashes or lesions Head: Normocephalic, no masses, lesions, tenderness or abnormalities Eyes: Anicteric sclera. Pupils are equally round and reactive to light. Extraocular movements are intact. Ears: External ears normal, canals clear Neck: Supple, no adenopathy Lungs: Lungs clear to auscultation. No wheezing, rhonchi, rales. Heart: RRR without murmur, gallop, or rubs. No ectopy Abdomen: Normal abdominal exam, Abdomen soft, non-tender. Bowel sounds normal. No masses, organomegaly Neuro: Gait normal. Sensation grossly intact. JOINTS: TENDER JOINTS: none SWOLLEN JOINTS: none No tenderness to spine or SI joints +heberden's nodes She is able to make a complete fist with both hands *November Widespread Pain Index: 4 (0-19) Symptoms Severity Scale: 7 (0-12) WPI>7 and SS Scale>5 OR WPI 3-6 and SS Scale >9 consistent with fibromyalgia Labs reviewed and discussed with the patient: Component Latest Ref Rng & Units 08/20/2022 WBC 3.70 - 11.00 k/uL 8.96 RBC 3.90 - 5.20 m/uL 4.45 Hemoglobin 11.5 - 15.5 g/dL 13.3 Hematocrit 36.0 - 46.0 % 41.2 MCV 80.0 - 100.0 fL 92.6 MCH 26.0 - 34.0 pg 29.9 MCHC 30.5 - 36.0 g/dL 32.3 RDW-CV 11.5 - 15.0 % 12.1 Platelet Count 150 - 400 k/uL 291 MPV 9.0 - 12.7 fL 9.9 Neut% % 69.8 Abs Neut (ANC) 1.45 - 7.50 k/uL 6.25 Lymph% % 20.0 Abs Lymph 1.00 - 4.00 k/uL 1.79 Limestone% % 6.9 Abs Limestone <0.87 k/uL 0.62 Eosin% % 2.9 Abs Eosin <0.46 k/uL 0.26 Baso% % 0.3 Abs Baso <0.11 k/uL 0.03 Immature Gran % % 0.1 IMMATURE GRANS (ABS) <0.10 k/uL <0.03 NRBC /100 WBC 0.0 Absolute nRBC <0.01 k/uL <0.01 DTYPE Auto Creatinine 0.58 - 0.96 mg/dL 0.80 eGFR >=60 mL/min/1.73m 86 AST 13 - 35 U/L 30 ALT 7 - 38 U/L 30 Albumin 3.9 - 4.9 g/dL 4.4 Component Latest Ref Rng & Units 02/26/2022 CCP Antibody IgG Qualitative Negative Negative CCP Antibody, IgG <20 Units <15 Hep C Antibody IA Negative Negative Hep B Surface Ag Negative Negative Hep B Surface Ab, Qual Negative Negative Hep B Core Ab, Total Negative Negative Component Latest Ref Rng & Units 12/23/2021 Protein, Urine Random 0 - 20 mg/dL 8 Creatinine, Ur Random (UCRR) 20.0 - 300.0 mg/dL 105.4 Protein/Creat Ratio <0.2 0.1 Sm Antibody Negative Negative Anti-Sm <1.0 AI 0.2 CEMENT RUBBER Antibody QUAL Negative Negative Anti-CEMENT RUBBER <1.0 AI 0.9 SSA Antibody Qual Negative Negative Anti-SSA <1.0 AI <0.2 Anti-SSB <1.0 AI <0.2 SSB Antibody Qual Negative Negative CENTROMERE AB QUAL Negative Negative Centromere Ab <1.0 AI <0.2 Scleroderma Ab Qual Negative Negative Scl-70 Abs, EIA <1.0 AI <0.2 ROSEANNE 1 ANTIBODY QUAL Negative Negative Roseanne 1 Antibody <1.0 AI <0.2 Ribosomal CEMENT RUBBER Qualitative Negative Negative Ribosomal CEMENT RUBBER Ab <1.0 AI <0.2 Chromatin Ab Qual Negative Negative Chromatin Ab <1.0 AI <0.2 MARCUS Negative Negative DNA Antibody w/Confirmation <30 IU/mL 22.27 C3 86 - 166 mg/dL 177 (H) C4 13 - 46 mg/dL 28 CRP <0.9 mg/dL 1.1 (H) WSR 0 - 20 mm/hr 30 (H) Rheumatoid Factor <16 IU/mL <10 Hemoglobin/Blood,Ur Negative Negative Component Latest Ref Rng & Units 07/16/2014 02/19/2021 05/09/2021 08/13/2021 MARCUS NEGAT Negative MARCUS Titer NEGAT Negative MARCUS Pattern Not applicable for negative result. CCP Antibody, IgG <20 Units <15 Rheumatoid Factor <20 IU/mL <10 WSR 0 - 20 mm/hr 22 (H) CRP <0.9 mg/dL 1.3 (H) PTH, Intact 15 - 65 pg/mL 42 TSH 0.270 - 4.200 mIU/L 0.889 STUDIES: *Jan US wrist/hand- MILD SCATTERED ACTIVE SYNOVITIS, DETAILED. L side: 3rd MCP, radiocarpal and carpal joints. R side: 2nd MCP *November xray hands/l-spine- DJD of hands/l-spine *Jan CT chest- No CT evidence of pulmonary embolism. Lung parenchyma and airways: The central airways are patent. A band like opacity noted in the left lower lobe, likely representing subsegmental atelectasis; otherwise the lungs are clear of consolidations. There appears to be a 3 mm nodule in the juxtapleural area in the right upper lobe, series 6 image 51. No masses identified. Pleural space: No pleural effusion or pneumothorax. No pleural thickening. Lower neck, lymph nodes, and mediastinum: The imaged thyroid gland is normal. No lymphadenopathy in the supraclavicular, axillary, mediastinal, or hilar regions. *Apr xray feet- HALLUX VALGUS WITH MIDFOOT DEGENERATIVE CHANGES AND CALCANEAL ENTHESOPHYTES ON THE LEFT. CALCANEAL ENTHESOPHYTE AT THE PLANTAR FASCIA AND ACHILLES TENDON INSERTION ON THE RIGHT WITH EVIDENCE FOR REMOTE LIGAMENT INJURY. TALUS IMPRESSION and PLAN: 1. Inflammatory arthritis: Prior dx of SLE with history of malar rash, photosensitivity, mouth sores and joint pain with significant improvement s/p HCQ initiation, negative [facility] MARUCS by IFA on multiple occasions. US with mild synovitis of the wrist and multiple bilateral MCPs. Remains with wrist andMCP pain bilaterally. Seronegative RA also is in the differential. Stable overall. - continue HCQ 200mg/BID along with routine eye exams, last normal in 08/2022. - Dr. Jack advised that MTX can be started if needed. Patient declines at this time. - Potential MTX side effects were previously explained including liver toxicity, lung toxicity, bone marrow suppression, increased risk for infection, mouth sores, nausea/vomiting, and diarrhea. Explained that methotrexate should be held in case of infection and restarted after symptoms resolve or after antibiotics are completed. Advised taking folic acid to help offset some of the potential sideeffects such as mouth sores. Explained that routine lab monitoring will be required every month forthe first 3 months and if stable, every 3 months thereafter while on methotrexate. Also advised that alcohol be avoided while on methotrexate in order to reduce risk for liver toxicity. Advised that m ethotrexate be held for 1 week after any potential future vaccination to optimize the body's ability to build immunity from the vaccine. -check labs in 01/2023 2. Generalized osteoarthritis: Hands (per exam), likely spine, knees. Tylenol alone ineffective - Diclofenac prn. R/B/A of NSAIDs discussed in the past - Given referrals to PT and spine clinic in the past 3. General health maintenance: - Completed the covid vaccination series in August, Feb, 4th in 02/2022. - Continue follow-up with PCP for routine health maintenance and malignancy screening Follow-up in 5 months or sooner if needed. Patient was instructed to call if any questions or concerns. Thank you for allowing me to participate in the care of your patient. I spent a total of 10 minutes on the date of the service which included preparing to see the patient, [facility] patient care, completing clinical documentation, performing a medically appropriate examination, ordering medications, tests, or procedures, and communicating results to the patient/fam delvin/caregiver. Emanuel Palomares APRN.ELDER documented in this encounterRegency Hospital Company05-11-2023 Instructions* Patient Instructions* Emanuel Palomares APRN.ELDER - 10/08/2022 12:35 PM EDT Please have labs done around 02/19/2023 documented in this encounterRegency Hospital Company04-28-2023 Miscellaneous Notes* Telephone Encounter - Marybeth Roche LPN - 09/25/2022 11:39 AM EDT Patient has been identified by name and date of : No Patient phones for refill(s): Requested Prescriptions Pending Prescriptions Disp Refills diclofenac, EC, (VOLTAREN) 75 mg EC tablet 180 tablet 3 Sig: Take 1 tablet by mouth twice daily. Date of last office visit in primary care: 08/25/22 Last 2 Encounter Wt Readings: Date: Wt: 08/25/2022 114.3 kg (252 lb) 07/20/2022 119.3 kg (263 lb) Previous labs/tests for medication: Not applicable Please advise. Thank you. Marybeth Roche LPN documented in this encounterRegency Hospital Company03-28-2023 History of Present illness Narrative* David Chicas MD - 08/25/2022 1:23 PM EDT Reason for Visit Patient presents with: Follow Up: diabetes, check spots on left hand Berenice Givens is a 57 year old female who presents here today for Above Complaints.. Health Maintenance HEPATITIS B(1 of 3 - 3-dose series) BP CONTROLLED (<130/80) SHINGRIX VACCINE(1 of 2) DTAP,TDAP,TD(3 - Td or Tdap) PAP TESTING MAMMOGRAM HPI Recently seen the cards and rheum- plaquenil does was doubled and statin was started and this time around she seems to be tolerating it. HPL: Reviewed test results with patient , takes medications regularly , does not report side effects. Conscious to avoid red meats, full fat dairy and its by products. Exercising 3 to 5 times a week. HTN: BP controlled today. Checks BP at home. Compliant with medications. Denies any chest pain, palpitations, SOB, swelling in the feet. Careful with diet to avoid salt, trying to eat more fruits andvegetables, exercises regularly Need her mammogram screening. Her las hba1c was 5.7 and she has indeed lost some weight recently. For WHITNEY she is seeing Dr Erick Rose- her sats are lower when she walks. She monitors her sleep apnea She was told that the lung issue after covid should eventually resolve She has 3 stucco keratosis on her left hand - we reassured her No problem-specific Assessment & Plan notes found for this encounter. PAST MEDICAL HISTORY Diagnosis Date Abdominal pain, epigastric Cigarette smoker 06/27/2021 Depressive disorder, not elsewhere classified Diaphragmatic hernia without mention of obstruction or gangrene Lupus erythematosus Migraine, unspecified, with intractable migraine, so stated, without mention of status migrainosus Migraine Obstructive sleep apnea syndrome, severe with associated hypoxemia. patient declined to schedule follow up testing for CPAP Unspecified essential hypertension PAST SURGICAL HISTORY Procedure Laterality Date CHOLECYSTECTOMY 10/03 Cholecystectomy COLONOSCOPY FLX DX W/COLLJ SPEC WHEN PFRMD 12/10/2017 Colonoscopy ESOPHAGOGASTRODUODENOSCOPY TRANSORAL DIAGNOSTIC EGD ESOPHAGOGASTRODUODENOSCOPY TRANSORAL DIAGNOSTIC 12/10/2017 EGD PAST SURGICAL HISTORY OF trigger finger PAST SURGICAL HISTORY OF heel spur PAST SURGICAL HISTORY OF carpal tunnel PAST SURGICAL HISTORY OF 03/09/12 endovenous laser ablation of L great saphenous vein, small saphenous vein and vein of Giacomini FAMILY HISTORY Problem Relation Age of Onset Cancer Paternal Grandfather Lung Diabetes Mother Alzheimer's Disease Mother Heart Maternal Grandfather Alzheimer's Disease Maternal Grandmother Alzheimer's Disease Maternal Aunt Alzheimer's Disease Maternal Uncle Alzheimer's Disease Maternal Uncle Breast Cancer Sister bilateral mastectomy Social History Tobacco Use Smoking status: Former Packs/day: 0.50 Years: 20.00 Pack years: 10.00 Types: Cigarettes Quit date: 04/22/2009 Years since quittin.3 Smokeless tobacco: Never Vaping Use Vaping Use: Never used Substance Use Topics Alcohol use: No Drug use: No Past medical history, appointments, medications, allergies reviewed. Pertinent Lab/Diagnostic Studies are reviewed and discussed today Current Outpatient Medications: ezetimibe (ZETIA) 10 mg tablet fluticasone (FLONASE) 50 mcg/actuation nasal spray loratadine (CLARITIN) 10 mg tablet cholecalciferol (VITAMIN D3) 5,000 unit tab topiramate (TOPAMAX) 100 mg tablet lansoprazole (PREVACID) 30 mg capsule metFORMIN ER (GLUCOPHAGE XR) 500 mg 24 hr tablet omega-3 acid ethyl esters (LOVAZA) 1 gram capsule folic acid 1 mg tablet mometasone (ELOCON) 0.1 % cream sertraline (ZOLOFT) 100 mg tablet tirzepatide (MOUNJARO) 2.5 mg/0.5 mL pen injector hydrOXYchloroQUINE (PLAQUENIL) 200 mg tablet levothyroxine (LEVOXYL) 100 mcg tablet losartan (COZAAR) 25 mg tablet diclofenac, EC, (VOLTAREN) 75 mg EC tablet albuterol HFA (PROVENTIL HFA, VENTOLIN HFA) 90 mcg/actuation inhaler MV with Rca-Evfykmho-Nrthvr (CENTRUM SILVER) 0.4-300-250 mg-mcg-mcg tab Review of Systems CONSTITUTIONAL: No fevers, chills night sweats, unintended weight loss CARDIOVASCULAR: No chest pain, dyspnea, palpitations, orthopnea, PND, ankle edema. PULM: No dyspnea, unexplained cough. GI: No dysphagia/odynophagia, problematic reflux, constipation, diarrhea, changes in stool habits, hematochezia, melena. : No new urinary complaints, including dysuria, gross hematuria or pyuria. NEURO: No new balance problems, peripheral weakness/paresthesias or numbness of concern. Physical Exam BP 134/74 (BP Site: Left Arm, BP Position: Sitting, BP Cuff Size: Large Adult) Pulse 77 Temp 37.4 C (99.4 F) Resp 14 Ht 172.7 cm (5' 8) Wt 114.3 kg (252 lb) SpO2 94% BMI 38.32 kg/m General appearance: Well appearing, alert, in no acute distress, well nourished. Skin: Skin color, texture, turgor normal, no suspicious rashes or lesions Head: Normocephalic, no masses, lesions, tenderness or abnormalities Eyes: Anicteric sclera. Pupils are equally round and reactive to light. Extraocular movements are intact. Lungs: Lungs clear to auscultation. No wheezing, rhonchi, rales Heart: RRR without murmur, gallop, or rubs. Extremities: No deformities, edema, skin discoloration, clubbing or cyanosis. Good capillary refill. ASSESSMENT/PLAN: 1. Insulin resistance - ICD9: 277.7, ICD10: E88.81 (primary diagnosis) 2. Metabolic syndrome - ICD9: 277.7, ICD10: E88.81 3. Prediabetes - ICD9: 790.29, ICD10: R73.03 4. Morbid obesity (HCC) - ICD9: 278.01, ICD10: E66.01 Stable - Continue current medications 5. Breast cancer screening by mammogram - ICD9: V76.12, ICD10: Z12.31 - Completed pelvic and breast exam - Encouraged monthly BSE - Follow up for annual exam in one year. - JAZMYNE SCREENING W FACUNDO 6. Essential hypertension - ICD9: 401.9, ICD10: I10 - good control - Recommended regular aerobic exercise. - Recommend home blood pressure monitoring, to bring results in on next visit - Goal of BP <130/80 7. Hyperlipidemia, unspecified hyperlipidemia type - ICD9: 272.4, ICD10: E78.5 - good control - Continue current medication. 8. WHITNEY (dyspnea on exertion) - ICD9: 786.09, ICD10: R06.09 Stable - Behavioral intervention David Chicas MD documented in this encounterRegency Hospital Company02-20-2023 Instructions* Patient Instructions* Prachi Cuadra APRN.[facility] - 07/20/2022 4:30 PM EST Heart Disease in Women Is heart disease a problem for women? Heart disease is the leading cause of of [place] women. More women from heart disease than from cancer. A heart attack can happen when there are problems with the blood vessels that bring blood to the heart (the coronary arteries). For example, fatty deposits called plaque may build up in the coronary arteries and make them narrower. The narrowing decreases blood flow to the heart. Plaque also increases the chance that blood clots may form and block a blood vessel, which can cause a heart attack orstroke. In the first year after a heart attack, women have an increased risk of . In the first 6 yearsafter a heart attack, they also have a higher risk of a second heart attack. Women are at high riskoften because they are older at the time of the heart attack and have other medical problems. Not everyone has the same symptoms. The most common symptoms of a heart attack include: Chest pain or pressure, squeezing, or fullness in the center of your chest that lasts more than a few minutes, or goes away and comes back (may feel like indigestion or heartburn) Pain or discomfort in one or both arms or shoulders, or in your back, neck, jaw, or stomach Trouble breathing Breaking out in a cold sweat for no known reason Along with these symptoms, you may also feel very tired, faint, or be sick to your stomach. Sometimes you can be having a heart attack and not know it. Many women have chest pain or pressure,but sometimes symptoms in women are different from men s symptoms. Or women may have additional symptoms, such as: Unexplained anxiety and nervousness Swelling of the ankles or lower legs Because they may not feel the typical pain in the left side of their chest, many women may ignore the symptoms of a heart attack. Call 911 for emergency help right away if you have these symptoms. Donot drive yourself to the hospital. Immediate emergency care improves your chances of survival and may help avoid damage to your heart. How can women lower their risk for heart disease? If you have high blood pressure, carefully follow your healthcare provider's instructions for keeping it under control. If you are a smoker, stop smoking. Try to keep a healthy weight. If you are overweight, talk to your provider about ways to lose weight. Eat a healthy diet that includes: ?Avoiding salty foods and not adding salt to food ?Increasing fiber, fruits, and vegetables ?Avoiding foods high in fat, cholesterol, and sugar Exercise according to your healthcare provider's instructions. Get enough rest and learn to use relaxation methods to help reduce stress. Treat and control medical conditions such as diabetes and high cholesterol. If you are taking hormone therapy, you and your healthcare provider should discuss the risks and benefits. Hormone therapy may increase the risk for heart disease or stroke. Talk with your provider about taking aspirin. Low-dose aspirin therapy reduces the risk of stroke for women. But it helps to lower a woman s risk of heart attack and other heart problems only if she is 65 or older. Make sure that your provider knows about any other medicines you are taking. If you decide you needto make changes in the way you live, you probably won't be able to turn your life around all at once. Try to develop healthy habits that incorporate your lifestyle goals. If you do, you will greatly decrease your chances for developing heart disease. You can get more information from: [facility] [id number]-EIS-[id number] ( )www.heart.org Developed by [employer]. Published by [employer]. Copyright 2014 [employer] and/or one of its subsidiaries. All rights reserved. documented in this encounterRegency Hospital Company02-20-2023 History of Present illness Narrative* Prachi Cuadra APRN.CNP - 07/20/2022 4:00 PM EST Chief Complaint Patient presents with: Follow Up History of Present Illness: Berenice Givens is a very pleasant 57 year old female who presents for routine follow up. She has a PMhx of CHATO, HTN, migraines, lupus. She was initially evaluated in our cardiology office for palpitations post Covid. She was last seen in office by myself on 07/14/2021. She states she has been doing well since she was seen last. She reports to me she has had weight loss secondary to limiting sweetsand drinking less pop. She does not intentionally participate in aerobic activity but reports no cardiac limitations with routine housework/errands. 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 She denies chest discomfort, shortness of breath, dizziness, orthopnea, LE swelling. She has occasional brief palpitations that are not very bothersome. We reviewed cardiac risk factors and modifications. She reports taking medications as prescribed. BP is slightly elevated in office today but she is having emotional stress from furnace issues at home. PAST MEDICAL HISTORY Diagnosis Date Abdominal pain, epigastric Cigarette smoker 06/27/2021 Depressive disorder, not elsewhere classified Diaphragmatic hernia without mention of obstruction or gangrene Lupus erythematosus Migraine, unspecified, with intractable migraine, so stated, without mention of status migrainosus Migraine Obstructive sleep apnea syndrome, severe with associated hypoxemia. patient declined to schedule follow up testing for CPAP Unspecified essential hypertension PAST SURGICAL HISTORY Procedure Laterality Date CHOLECYSTECTOMY 10/03 Cholecystectomy COLONOSCOPY FLX DX W/COLLJ SPEC WHEN PFRMD 12/10/2017 Colonoscopy ESOPHAGOGASTRODUODENOSCOPY TRANSORAL DIAGNOSTIC EGD ESOPHAGOGASTRODUODENOSCOPY TRANSORAL DIAGNOSTIC 12/10/2017 EGD PAST SURGICAL HISTORY OF trigger finger PAST SURGICAL HISTORY OF heel spur PAST SURGICAL HISTORY OF carpal tunnel PAST SURGICAL HISTORY OF 03/09/12 endovenous laser ablation of L great saphenous vein, small saphenous vein and vein of Giacomini FAMILY HISTORY Problem Relation Age of Onset Cancer Paternal Grandfather Lung Diabetes Mother Alzheimer's Disease Mother Heart Maternal Grandfather Alzheimer's Disease Maternal Grandmother Alzheimer's Disease Maternal Aunt Alzheimer's Disease Maternal Uncle Alzheimer's Disease Maternal Uncle Breast Cancer Sister bilateral mastectomy Social History Tobacco Use Smoking status: Former Packs/day: 0.50 Years: 20.00 Pack years: 10.00 Types: Cigarettes Quit date: 04/22/2009 Years since quittin.2 Smokeless tobacco: Never Vaping Use Vaping Use: Never used Substance Use Topics Alcohol use: No Drug use: No ALLERGIES Allergen Reactions Lisinopril Intolerance sleepy Pravastatin Contraindication-Medical Surgical myositis Zithromax [Azithrom* Abdominal cramping Medications: Current Outpatient Medications Medication Sig Dispense Refill cholecalciferol (VITAMIN D3) 5,000 unit tab Take 1 tablet by mouth once daily. 90 tablet 3 topiramate (TOPAMAX) 100 mg tablet Take 1 tablet by mouth every evening. 90 tablet 3 lansoprazole (PREVACID) 30 mg capsule Take 1 capsule by mouth once daily. 90 capsule 3 metFORMIN ER (GLUCOPHAGE XR) 500 mg 24 hr tablet Take 1 tablet by mouth daily with breakfast. Forgot Rx when traveling, do not cancel [facility] Rx 90 tablet 3 omega-3 acid ethyl esters (LOVAZA) 1 gram capsule TAKE 2 CAPSULES ONCE DAILY 180 capsule 3 folic acid 1 mg tablet Take 2 tablets by mouth once daily. 180 tablet 3 mometasone (ELOCON) 0.1 % cream Apply 1 application to affected area once daily. 120 g 3 sertraline (ZOLOFT) 100 mg tablet Take 1 tablet by mouth once daily. Forgot Rx when traveling, do not cancel [facility] Rx 90 tablet 3 hydrOXYchloroQUINE (PLAQUENIL) 200 mg tablet Take 1 tablet by mouth twice daily. Forgot Rx when traveling, do not cancel [facility] Rx 180 tablet 3 levothyroxine (LEVOXYL) 100 mcg tablet Take 1 tablet by mouth once daily. Take on empty stomach. For Thyroid. 90 tablet 3 losartan (COZAAR) 25 mg tablet TAKE 3 TABLETS ONCE DAILY 270 tablet 3 diclofenac, EC, (VOLTAREN) 75 mg EC tablet Take 1 tablet by mouth twice daily. 180 tablet 3 albuterol HFA (PROVENTIL HFA, VENTOLIN HFA) 90 mcg/actuation inhaler Inhale 2 Puffs as instructed every 6 hours as needed for Wheezing/Shortness of Breath. 18 g 5 MV with Amb-Eifhnwwv-Zegzpn (CENTRUM SILVER) 0.4-300-250 mg-mcg-mcg tab Take 1 tablet by mouth oncedaily. 1 tablet 0 ezetimibe (ZETIA) 10 mg tablet Take 1 tablet by mouth once daily. 90 tablet 3 fluticasone (FLONASE) 50 mcg/actuation nasal spray Use 2 Sprays in each nostril once daily. Rinse mouth after use. (Patient not taking: Reported on 07/20/2022) 1 Each 0 loratadine (CLARITIN) 10 mg tablet Take 1 tablet by mouth once daily. (Patient not taking: Reportedon 07/20/2022) 30 tablet 11 tirzepatide (MOUNJARO) 2.5 mg/0.5 mL pen injector Inject 2.5 mg subcutaneously one time a week. (Patient not taking: Reported on 07/20/2022) 4 Each 1 No current facility-administered medications for this visit. Review of Systems Constitutional: Negative for chills, diaphoresis, fever, malaise/fatigue and weight loss. HENT: Negative for congestion, ear pain, nosebleeds, sinus pain and sore throat. Eyes: Negative for pain. Respiratory: Negative for cough, shortness of breath and wheezing. Cardiovascular: Negative for chest pain, palpitations and leg swelling. Gastrointestinal: Negative for abdominal pain, blood in stool and melena. Genitourinary: Negative for hematuria. Musculoskeletal: Positive for joint pain. Negative for falls. Arthritis Neurological: Negative for dizziness, tingling, sensory change, speech change, focal weakness, lossof consciousness, weakness and headaches. Endo/Heme/Allergies: Does not bruise/bleed easily. Psychiatric/Behavioral: Negative for depression, memory loss and suicidal ideas. The patient is notnervous/anxious and does not have insomnia. Physical Examination: Vitals:BP 140/80 Pulse 70 Resp 12 Ht 5' 8 (1.73m) Wt 263 lb (119.3kg) SpO2 96% BMI 40.00 kg/(m^2). Last 2 Encounter Wt Readings: Date: Wt: 06/25/2022 257 lb (116.6 kg) 06/08/2022 260 lb 9.6 oz (118.2 kg) Physical Exam HENT: Head: Normocephalic. Eyes: Pupils: Pupils are equal, round, and reactive to light. Cardiovascular: Rate and Rhythm: Normal rate and regular rhythm. Pulses: Radial pulses are 2+ on the right side and 2+ on the left side. Dorsalis pedis pulses are 2+ on the right side and 2+ on the left side. Heart sounds: Normal heart sounds, S1 normal and S2 normal. Pulmonary: Effort: Pulmonary effort is normal. No accessory muscle usage or respiratory distress. Breath sounds: Normal breath sounds. Abdominal: General: Bowel sounds are normal. Palpations: Abdomen is soft. Musculoskeletal: General: Normal range of motion. Cervical back: Normal range of motion. Right lower leg: No edema. Left lower leg: No edema. Skin: General: Skin is warm and dry. Neurological: Mental Status: She is alert and oriented to person, place, and time. Gait: Gait is intact. Psychiatric: Mood and Affect: Affect normal. Cognition and Memory: Memory normal. Judgment: Judgment normal. Most Recent Cardiac Testing 03/27/21 CONCLUSIONS: - Technically difficult exam due to body habitus. - Exam indication: Post COVID SOB/palp - The left ventricle is normal in size. Left ventricular systolic function is normal. EF = 60 5% (visual est.) Normal left ventricular diastolic function. - The right ventricle is normal in size. Right ventricular systolic function is normal. - Definity contrast could not be administered d/t unavailbility of staff. - Exam was compared with the prior echocardiographic exam performed on 03/16/2019, no significant change. Assessment and Plan: Palpitations -She has occasional brief palpitations that are not very bothersome. -echocardiogram with grossly normal structure and function -monitor in 2019 without significant arrhythmia, will repeat if symptoms return -not currently on bb or ccb -recommended conservative measures: stay hydrated, limit stimulants/caffiene, limit stress CHATO -Cpap compliant HLD -Lipid panel July 2022 LDL 165 -Agreeable to Zetia 10 mg -Repeat lipid panel in 3 months HTN -140/80 -Continue current medication(s) -Encouraged dietary sodium restriction/DASH diet -Recommended regular aerobic exercise. -Recommend home blood pressure monitoring, to bring results in on next visit -Discussed need and benefit for weight loss. -Goal of BP <130/80 Obesity -lifestyle modifications -encouraged a heart healthy diet, routine exercise and weight loss DM2 -A1c January 2022 5.7 -Metformin Follow up in 1 year. Patient to call with any issues or concerns prior to then. Electronically signed by Prachi Cuadra APRN.CNP on July 20, 2022, 3:28 PM documented in this encounterRegency Hospital Company02-09-2023 Miscellaneous Notes* Telephone Encounter - Licha Irwin RN - 07/09/2022 10:34 AM EST Spoke to pt. Voices understanding. States she would be willing to add Zetia. Please call rx to [facility] in [place]. Thank you. Licha Irwin RN * Telephone Encounter - Licha Irwin RN - 07/09/2022 10:34 AM EST ----- Message from Prachi Cuadra APRN.CNP sent at 07/09/2022 9:07 AM EST ----- Please call patient and notify her of lab results. BMP is stable. Cholesterol is with poor control.She has an intolerance to statins. Please see if she would be agreeable to add 10 mg of Zetia to her medication regimen. This medication is well-tolerated for my patients with statin intolerances. Thank you! documented in this encounterRegency Hospital Company01-26-2023 History of Present illness Narrative* Emanuel Palomares APRN.CUSTOM APPLICATOR - 06/25/2022 1:00 PM EST [facility] for SLE. HPI: To review, Berenice Givens is a 57 year old female (goes by Kate) - At age 23, noted onset of malar rash (which was incorrectly diagnosed and managed as acne x1 year), joint pain (including knees), photosensitivity and mouth sores. Diagnosed with SLE. Was initiallytreated with injections (she's guessing of steroids), which stopped as it got to be too much (wouldhave 18 facial injections at a time) - In , started on HCQ with significant improvement in rash and joint pain - In November, reported pain in the R 2nd MCP, bilateral DIPs, hips, knees, ankles, low back and neck. Had injections of the spine, neck helped more than low back but low back injections helped a little. PT done in for tibialis tendinitis of both ankles without relief. Most concerning area of pain was the low back, ankles and hands. - at [facility], reports trying tylenol x3 weeks which made things worse-every part of her body hurt with this. Went back on diclofenac PO which works a lot better for her. - Has pain in the bilateral wrists and MCPs, some in the PIPs - Last plaquenil eye exam normal in August PAST MEDICAL HISTORY Diagnosis Date Abdominal pain, epigastric Cigarette smoker 06/27/2021 Depressive disorder, not elsewhere classified Diaphragmatic hernia without mention of obstruction or gangrene Lupus erythematosus Migraine, unspecified, with intractable migraine, so stated, without mention of status migrainosus Migraine Obstructive sleep apnea syndrome, severe with associated hypoxemia. patient declined to schedule follow up testing for CPAP Unspecified essential hypertension GERD PAST SURGICAL HISTORY Procedure Laterality Date CHOLECYSTECTOMY 10/03 Cholecystectomy COLONOSCOPY FLX DX W/COLLJ SPEC WHEN PFRMD 12/10/2017 Colonoscopy ESOPHAGOGASTRODUODENOSCOPY TRANSORAL DIAGNOSTIC EGD ESOPHAGOGASTRODUODENOSCOPY TRANSORAL DIAGNOSTIC 12/10/2017 EGD PAST SURGICAL HISTORY OF trigger finger PAST SURGICAL HISTORY OF heel spur PAST SURGICAL HISTORY OF carpal tunnel PAST SURGICAL HISTORY OF 03/09/12 endovenous laser ablation of L great saphenous vein, small saphenous vein and vein of Giacomini ALLERGIES Allergen Reactions Lisinopril Intolerance sleepy Pravastatin Contraindication-Medical Surgical myositis Zithromax [Azithrom* Abdominal cramping INTERVAL HISTORY She is here for follow up. She is a patient of Dr. Jack. She reported R groin pain in 03/2022. Imaging showed OA. She was prescribed a steroid course. She reports improvement of joint pain with the steroid course. HCQ dose was increased after the ZARA, which helped. Pain is worst in the morning. Takes medical marijuana gummies. She also takes diclofenac. Sites of pain: hands, knees, neck, low back, pain rated 4/10 Joint swelling: none EMS: yes, lasting 2 hours She reports URI in 05/2022, s/p antibiotics. Tolerating meds. Answers submitted by the patient for this visit: Review of Systems Rheumatology (Submitted on 06/21/2022) Fever : No Recent Unintentional Weight Change: No Eye Pain: No Eye Redness: No Vision Disturbance: No Eye Dryness: No Nose Bleeds: No Sores in your Mouth: No Trouble Swallowing: No Dry Mouth: No Chest Pain: No Leg Swelling: No A Cough: Yes Blood when you Cough: No Shortness of Breath: Yes Pain with Breathing: No Heartburn: No Abdominal Pain: No Diarrhea: No Black Tarry Stools: No Blood in Urine: No Pain or Burning with Urination: No Joint Pain or Stiffness: Yes Muscle Weakness: Yes Muscle Aches: Yes Joint Swelling: Yes Morning Stiffness in Joints: Yes A Rash: No Skin Color Changes: No Hair Loss: Yes Nail Changes: Yes Headaches: No Numbness: No Memory Loss: No Swollen Glands: No Current Outpatient Medications Medication Sig fluticasone (FLONASE) 50 mcg/actuation nasal spray Use 2 Sprays in each nostril once daily. Rinse mouth after use. loratadine (CLARITIN) 10 mg tablet Take 1 tablet by mouth once daily. cholecalciferol (VITAMIN D3) 5,000 unit tab Take 1 tablet by mouth once daily. topiramate (TOPAMAX) 100 mg tablet Take 1 tablet by mouth every evening. lansoprazole (PREVACID) 30 mg capsule Take 1 capsule by mouth once daily. metFORMIN ER (GLUCOPHAGE XR) 500 mg 24 hr tablet Take 1 tablet by mouth daily with breakfast. Forgot Rx when traveling, do not cancel [facility] Rx omega-3 acid ethyl esters (LOVAZA) 1 gram capsule TAKE 2 CAPSULES ONCE DAILY folic acid 1 mg tablet Take 2 tablets by mouth once daily. mometasone (ELOCON) 0.1 % cream Apply 1 application to affected area once daily. sertraline (ZOLOFT) 100 mg tablet Take 1 tablet by mouth once daily. Forgot Rx when traveling, do not cancel [facility] Rx tirzepatide (MOUNJARO) 2.5 mg/0.5 mL pen injector Inject 2.5 mg subcutaneously one time a week. hydrOXYchloroQUINE (PLAQUENIL) 200 mg tablet Take 1 tablet by mouth twice daily. Forgot Rx when traveling, do not cancel [facility] Rx levothyroxine (LEVOXYL) 100 mcg tablet Take 1 tablet by mouth once daily. Take on empty stomach. For Thyroid. losartan (COZAAR) 25 mg tablet TAKE 3 TABLETS ONCE DAILY diclofenac, EC, (VOLTAREN) 75 mg EC tablet Take 1 tablet by mouth twice daily. albuterol HFA (PROVENTIL HFA, VENTOLIN HFA) 90 mcg/actuation inhaler Inhale 2 Puffs as instructed every 6 hours as needed for Wheezing/Shortness of Breath. MV with Rqw-Hydwazmj-Fqeygl (CENTRUM SILVER) 0.4-300-250 mg-mcg-mcg tab Take 1 tablet by mouth oncedaily. No current facility-administered medications for this visit. FAMILY HISTORY Problem Relation Age of Onset Cancer Paternal Grandfather Lung Diabetes Mother Alzheimer's Disease Mother Heart Maternal Grandfather Alzheimer's Disease Maternal Grandmother Alzheimer's Disease Maternal Aunt Alzheimer's Disease Maternal Uncle Alzheimer's Disease Maternal Uncle Breast Cancer Sister bilateral mastectomy SOCIAL HISTORY: Lives in [place] with spouse. Retired from working at a [employer] Tobacco use: None Alcohol use: None Drug use: None PHYSICAL EXAMINATION: BP 130/82 Pulse 84 Temp 36.8 C (98.3 F) (Temporal) Ht 172.7 cm (5' 8) Wt 116.6 kg (257 lb) BMI 39.08 kg/m General appearance: Well appearing, alert, in no acute distress, well-hydrated, well nourished. Skin: Skin color, texture, turgor normal, no suspicious rashes or lesions Head: Normocephalic, no masses, lesions, tenderness or abnormalities Eyes: Anicteric sclera. Pupils are equally round and reactive to light. Extraocular movements are intact. Ears: External ears normal, canals clear Neck: Supple, no adenopathy Lungs: Lungs clear to auscultation. No wheezing, rhonchi, rales. Heart: RRR without murmur, gallop, or rubs. No ectopy Abdomen: Normal abdominal exam, Abdomen soft, non-tender. Bowel sounds normal. No masses, organomegaly Neuro: Gait normal. Sensation grossly intact. JOINTS: TENDER JOINTS: none SWOLLEN JOINTS: none No tenderness to spine or SI joints +heberden's nodes She is able to make a complete fist with both hands *November Widespread Pain Index: 4 (0-19) Symptoms Severity Scale: 7 (0-12) WPI>7 and SS Scale>5 OR WPI 3-6 and SS Scale >9 consistent with fibromyalgia Labs reviewed and discussed with the patient: Component Latest Ref Rng & Units 02/26/2022 CCP Antibody IgG Qualitative Negative Negative CCP Antibody, IgG <20 Units <15 Hep C Antibody IA Negative Negative Hep B Surface Ag Negative Negative Hep B Surface Ab, Qual Negative Negative Hep B Core Ab, Total Negative Negative Component Latest Ref Rng & Units 02/20/2022 Protein, Total 6.3 - 8.0 g/dL 7.5 Albumin 3.9 - 4.9 g/dL 4.5 Calcium 8.5 - 10.2 mg/dL 9.8 Bilirubin, Total 0.2 - 1.3 mg/dL 0.5 Alkaline Phosphatase 34 - 123 U/L 118 AST 13 - 35 U/L 33 ALT 7 - 38 U/L 35 Glucose 74 - 99 mg/dL 104 (H) BUN 7 - 21 mg/dL 13 Creatinine 0.58 - 0.96 mg/dL 0.77 Sodium 136 - 144 mmol/L 140 Potassium 3.7 - 5.1 mmol/L 3.8 Chloride 97 - 105 mmol/L 104 CO2 22 - 30 mmol/L 25 Anion Gap 9 - 18 mmol/L 11 eGFR >=60 mL/min/1.73m 91 WBC 3.70 - 11.00 k/uL 9.18 RBC 3.90 - 5.20 m/uL 4.50 Hemoglobin 11.5 - 15.5 g/dL 13.7 Platelet Count 150 - 400 k/uL 313 MPV 9.0 - 12.7 fL 10.1 Absolute nRBC <0.01 k/uL <0.01 Component Latest Ref Rng & Units 12/23/2021 Protein, Urine Random 0 - 20 mg/dL 8 Creatinine, Ur Random (UCRR) 20.0 - 300.0 mg/dL 105.4 Protein/Creat Ratio <0.2 0.1 Sm Antibody Negative Negative Anti-Sm <1.0 AI 0.2 CEMENT RUBBER Antibody QUAL Negative Negative Anti-CEMENT RUBBER <1.0 AI 0.9 SSA Antibody Qual Negative Negative Anti-SSA <1.0 AI <0.2 Anti-SSB <1.0 AI <0.2 SSB Antibody Qual Negative Negative CENTROMERE AB QUAL Negative Negative Centromere Ab <1.0 AI <0.2 Scleroderma Ab Qual Negative Negative Scl-70 Abs, EIA <1.0 AI <0.2 ROSEANNE 1 ANTIBODY QUAL Negative Negative Roseanne 1 Antibody <1.0 AI <0.2 Ribosomal CEMENT RUBBER Qualitative Negative Negative Ribosomal CEMENT RUBBER Ab <1.0 AI <0.2 Chromatin Ab Qual Negative Negative Chromatin Ab <1.0 AI <0.2 MARCUS Negative Negative DNA Antibody w/Confirmation <30 IU/mL 22.27 C3 86 - 166 mg/dL 177 (H) C4 13 - 46 mg/dL 28 CRP <0.9 mg/dL 1.1 (H) WSR 0 - 20 mm/hr 30 (H) Rheumatoid Factor <16 IU/mL <10 Hemoglobin/Blood,Ur Negative Negative Component Latest Ref Rng & Units 07/16/2014 02/19/2021 05/09/2021 08/13/2021 MARCUS NEGAT Negative MARCUS Titer NEGAT Negative MARCUS Pattern Not applicable for negative result. CCP Antibody, IgG <20 Units <15 Rheumatoid Factor <20 IU/mL <10 WSR 0 - 20 mm/hr 22 (H) CRP <0.9 mg/dL 1.3 (H) PTH, Intact 15 - 65 pg/mL 42 TSH 0.270 - 4.200 mIU/L 0.889 STUDIES: *Jan US wrist/hand- MILD SCATTERED ACTIVE SYNOVITIS, DETAILED. L side: 3rd MCP, radiocarpal and carpal joints. R side: 2nd MCP *November xray hands/l-spine- DJD of hands/l-spine *Jan CT chest- No CT evidence of pulmonary embolism. Lung parenchyma and airways: The central airways are patent. A band like opacity noted in the left lower lobe, likely representing subsegmental atelectasis; otherwise the lungs are clear of consolidations. There appears to be a 3 mm nodule in the juxtapleural area in the right upper lobe, series 6 image 51. No masses identified. Pleural space: No pleural effusion or pneumothorax. No pleural thickening. Lower neck, lymph nodes, and mediastinum: The imaged thyroid gland is normal. No lymphadenopathy in the supraclavicular, axillary, mediastinal, or hilar regions. *Apr xray feet- HALLUX VALGUS WITH MIDFOOT DEGENERATIVE CHANGES AND CALCANEAL ENTHESOPHYTES ON THE LEFT. CALCANEAL ENTHESOPHYTE AT THE PLANTAR FASCIA AND ACHILLES TENDON INSERTION ON THE RIGHT WITH EVIDENCE FOR REMOTE LIGAMENT INJURY. TALUS IMPRESSION and PLAN: 1. Inflammatory arthritis: Prior dx of SLE with history of malar rash, photosensitivity, mouth sores and joint pain with significant improvement s/p HCQ initiation, negative [facility] MARCUS by IFA on multiple occasions. US with mild synovitis of the wrist and multiple bilateral MCPs. Remains with wrist andMCP pain bilaterally. Seronegative RA also is in the differential. Stable overall. - continue HCQ 200mg/BID along with routine eye exams, last normal in 08/2021. I reminded her to schedule another exam for this year and I asked that the most recent results be faxed to our office. - Dr. Jack advised that MTX can be started if needed. - Potential MTX side effects were previously explained including liver toxicity, lung toxicity, bone marrow suppression, increased risk for infection, mouth sores, nausea/vomiting, and diarrhea. Explained that methotrexate should be held in case of infection and restarted after symptoms resolve or after antibiotics are completed. Advised taking folic acid to help offset some of the potential sideeffects such as mouth sores. Explained that routine lab monitoring will be required every month forthe first 3 months and if stable, every 3 months thereafter while on methotrexate. Also advised that alcohol be avoided while on methotrexate in order to reduce risk for liver toxicity. Advised that m ethotrexate be held for 1 week after any potential future vaccination to optimize the body's ability to build immunity from the vaccine. - Check labs in 07/3022. Notify of results via [employer] 2. Generalized osteoarthritis: Hands (per exam), likely spine, knees. Tylenol alone ineffective - Diclofenac prn. R/B/A of NSAIDs discussed in the past - Given referrals to PT and spine clinic in the past 3. General health maintenance: - Completed the covid vaccination series in August, Feb, 4th in 02/2022. - Continue follow-up with PCP for routine health maintenance and malignancy screening Follow-up in 4 months or sooner if needed. Patient was instructed to call if any questions or concerns. Thank you for allowing me to participate in the care of your patient. I spent a total of 20 minutes on the date of the service which included preparing to see the patient, [id number] patient care, completing clinical documentation, performing a medically appropriate examination, ordering medications, tests, or procedures, and communicating results to the patient/fam delvin/caregiver. Emanuel Palomares APRN.CNP documented in this encounterRegency Hospital Company01-24-2023 Instructions* Patient Instructions* Emanuel Palomares APRN.CNP - 06/23/2022 7:49 AM EST Please have labs done around 08/20/2022 Please have Plaquenil eye exam results faxed to [phone] documented in this encounterRegency Hospital Company01-10-2023 Miscellaneous Notes* Telephone Encounter - Sara Montanez - 06/09/2022 7:38 AM EST Left detailed message on a secured voicemail. Sara Montanez * Telephone Encounter - Sara Frazier APRN.CNP - 06/09/2022 7:22 AM EST Please notify that covid/flu testing negative. Continue with plan of care as discussed during visit. documented in this encounterRegency Hospital Company12-02-2022 History of Present illness Narrative* Chemo Christie MD - 05/01/2022 5:23 PM EST Patient presents with: Pain, Throat: Pain rated 6, fever x1 day. HPI: Feeling sore throat since last night. Positive symptoms: little Cough, Sore throat, Feverish, Headache, , Negative symptoms: Nasal Congestion, Rhinorrhea, Nausea, Vomiting, Diarrhea, OTC: emergenC MEDICATIONS: Current Outpatient Medications Medication Sig cholecalciferol (VITAMIN D3) 5,000 unit tab Take 1 tablet by mouth once daily. topiramate (TOPAMAX) 100 mg tablet Take 1 tablet by mouth every evening. lansoprazole (PREVACID) 30 mg capsule Take 1 capsule by mouth once daily. metFORMIN ER (GLUCOPHAGE XR) 500 mg 24 hr tablet Take 1 tablet by mouth daily with breakfast. Forgot Rx when traveling, do not cancel [facility] Rx omega-3 acid ethyl esters (LOVAZA) 1 gram capsule TAKE 2 CAPSULES ONCE DAILY folic acid 1 mg tablet Take 2 tablets by mouth once daily. mometasone (ELOCON) 0.1 % cream Apply 1 application to affected area once daily. sertraline (ZOLOFT) 100 mg tablet Take 1 tablet by mouth once daily. Forgot Rx when traveling, do not cancel [facility] tirzepatide (MOUNJARO) 2.5 mg/0.5 mL pen injector Inject 2.5 mg subcutaneously one time a week. hydrOXYchloroQUINE (PLAQUENIL) 200 mg tablet Take 1 tablet by mouth twice daily. Forgot Rx when traveling, do not cancel [facility] levothyroxine (LEVOXYL) 100 mcg tablet Take 1 tablet by mouth once daily. Take on empty stomach. For Thyroid. losartan (COZAAR) 25 mg tablet TAKE 3 TABLETS ONCE DAILY diclofenac, EC, (VOLTAREN) 75 mg EC tablet Take 1 tablet by mouth twice daily. albuterol HFA (PROVENTIL HFA, VENTOLIN HFA) 90 mcg/actuation inhaler Inhale 2 Puffs as instructed every 6 hours as needed for Wheezing/Shortness of Breath. MV with Daz-Orfzjqvk-Pqkoon (CENTRUM SILVER) 0.4-300-250 mg-mcg-mcg tab Take 1 tablet by mouth oncedaily. Current Facility-Administered Medications Medication Dose Route Frequency perflutren lipid microspheres 1.3 mL in NaCl (PF) 0.9% 10 mL injection (DEFINITY) INTRAVENOUS DIRECTED PRN sodium chloride 0.9 % (flush) 10 mL (BD POSIFLUSH) 10 mL INTRAVENOUS DIRECTED PRN ALLERGIES: ALLERGIES Allergen Reactions Lisinopril Intolerance sleepy Pravastatin Contraindication-Medical Surgical myositis Zithromax [Azithrom* Abdominal cramping VITALS: BP 148/76 Pulse 76 Temp 36.9 C (98.4 F) Resp 18 Wt 121.5 kg (267 lb 12.8 oz) SpO2 95% BMI 40.72 kg/m PHYSICAL EXAM: GEN: Pleasant, in no acute distress. HEENT: PERRL, EOMI, conjunctiva clear Ears: canals clear. TMs without erythema, bulge, or effusion Sinuses: non-tender frontal sinus, non-tender maxillary sinuses Throat: moist mucous membranes, mild erythema, no exudate Neck: supple, no thyromegaly, no lymphadenopathy HEART: regular rate and rhythm, no murmurs LUNGS: clear to auscultation, no wheezes or crackles, no increased WOB ASSESSMENT/PLAN: 1. Throat pain - ICD9: 784.1, ICD10: R07.0 - STREP A MOLECULAR (POC) - negative. - suspect viral pharyngitis differential [facility] is going to a wedding soon and would like to have testing. - Supportive care treatment . - Red flags to seek further treatment include chest pain, shortness of breath, and lethargy; in theER if severe. - COVID WITH FLUA+B, ROUTINE Chemo Christie MD documented in this encounterRegency Hospital Company11-22-2022 Miscellaneous Notes* Telephone Encounter - Dennise Palomares RN - 04/21/2022 4:44 PM EST Last Office Visit: 02/25/2022 Future Office Visit: None Requested Prescriptions Pending Prescriptions Disp Refills cholecalciferol (VITAMIN D3) 5,000 unit tab 90 tablet 3 Sig: Take 1 tablet by mouth once daily. Date of Last Labs: 01/30/2021 documented in this encounterRegency Hospital Company11-04-2022 Miscellaneous Notes* Telephone Encounter - Delicia Gallegos LPN - 04/03/2022 12:31 PM EDT Patient notified of results, verbalizes understanding of instructions. Delicia Gallegos LPN * Telephone Encounter - Anny Iqbal PA-C - 04/03/2022 9:51 AM EDT Please let patient know that her ultrasound showed no blood clot in the leg. She does have arthritis in the right hip which is likely causing her pain. I did call in prednisone for 5 days. May take Tylenol with this. Follow-up with PCP if not improving. documented in this encounterRegency Hospital Company11-03-2022 History of Present illness Narrative* Anny Iqbal PA-C - 04/02/2022 6:11 PM EDT This note was created using GreenGarriter. Subjective Berenice Givens is a 57 year old female. HPI Patient presents with right groin pain over the past month. She states the past 2 days it started to radiate down her inner thigh to her knee area. Painful to bear weight and when moving the leg. Shedenies weakness numbness or tingling. No problems with the leg previously. No injury. No lower leg swelling. Denies history of DVT. Review of Systems Constitutional: Negative. HENT: Negative. Musculoskeletal: Right groin pain All other systems reviewed and are negative. PAST MEDICAL HISTORY Diagnosis Date Abdominal pain, epigastric Cigarette smoker 06/27/2021 Depressive disorder, not elsewhere classified Diaphragmatic hernia without mention of obstruction or gangrene Lupus erythematosus Migraine, unspecified, with intractable migraine, so stated, without mention of status migrainosus Migraine Obstructive sleep apnea syndrome, severe with associated hypoxemia. patient declined to schedule follow up testing for CPAP Unspecified essential hypertension Current Outpatient Medications Medication Sig Dispense Refill topiramate (TOPAMAX) 100 mg tablet Take 1 tablet by mouth every evening. 90 tablet 3 lansoprazole (PREVACID) 30 mg capsule Take 1 capsule by mouth once daily. 90 capsule 3 metFORMIN ER (GLUCOPHAGE XR) 500 mg 24 hr tablet Take 1 tablet by mouth daily with breakfast. Forgot Rx when traveling, do not cancel [facility] 90 tablet 3 omega-3 acid ethyl esters (LOVAZA) 1 gram capsule TAKE 2 CAPSULES ONCE DAILY 180 capsule 3 folic acid 1 mg tablet Take 2 tablets by mouth once daily. 180 tablet 3 mometasone (ELOCON) 0.1 % cream Apply 1 application to affected area once daily. 120 g 3 sertraline (ZOLOFT) 100 mg tablet Take 1 tablet by mouth once daily. Forgot Rx when traveling, do not cancel [facility] Rx 90 tablet 3 tirzepatide (MOUNJARO) 2.5 mg/0.5 mL pen injector Inject 2.5 mg subcutaneously one time a week. 4 Each 1 hydrOXYchloroQUINE (PLAQUENIL) 200 mg tablet Take 1 tablet by mouth twice daily. Forgot Rx when traveling, do not cancel [facility] Rx 180 tablet 3 levothyroxine (LEVOXYL) 100 mcg tablet Take 1 tablet by mouth once daily. Take on empty stomach. For Thyroid. 90 tablet 3 losartan (COZAAR) 25 mg tablet TAKE 3 TABLETS ONCE DAILY 270 tablet 3 diclofenac, EC, (VOLTAREN) 75 mg EC tablet Take 1 tablet by mouth twice daily. 180 tablet 3 cholecalciferol (VITAMIN D3) 5,000 unit tab Take 1 tablet by mouth once daily. 90 tablet 3 albuterol HFA (PROVENTIL HFA, VENTOLIN HFA) 90 mcg/actuation inhaler Inhale 2 Puffs as instructed every 6 hours as needed for Wheezing/Shortness of Breath. 18 g 5 MV with Kbu-Ekkpcasu-Vftych (CENTRUM SILVER) 0.4-300-250 mg-mcg-mcg tab Take 1 tablet by mouth oncedaily. 1 tablet 0 Current Facility-Administered Medications Medication Dose Route Frequency Provider Last Rate Last Admin perflutren lipid microspheres 1.3 mL in NaCl (PF) 0.9% 10 mL injection (DEFINITY) INTRAVENOUS DIRECTED PRN Carlita Broussard APRN.CUSTOM APPLICATOR sodium chloride 0.9 % (flush) 10 mL (BD POSIFLUSH) 10 mL INTRAVENOUS DIRECTED PRN Carlita Broussard APRN.CNP PAST SURGICAL HISTORY Procedure Laterality Date CHOLECYSTECTOMY 10/03 Cholecystectomy COLONOSCOPY FLX DX W/COLLJ SPEC WHEN PFRMD 12/10/2017 Colonoscopy ESOPHAGOGASTRODUODENOSCOPY TRANSORAL DIAGNOSTIC EGD ESOPHAGOGASTRODUODENOSCOPY TRANSORAL DIAGNOSTIC 12/10/2017 EGD PAST SURGICAL HISTORY OF trigger finger PAST SURGICAL HISTORY OF heel spur PAST SURGICAL HISTORY OF carpal tunnel PAST SURGICAL HISTORY OF 03/09/12 endovenous laser ablation of L great saphenous vein, small saphenous vein and vein of Giacomini FAMILY HISTORY Problem Relation Age of Onset Cancer Paternal Grandfather Lung Diabetes Mother Alzheimer's Disease Mother Heart Maternal Grandfather Alzheimer's Disease Maternal Grandmother Alzheimer's Disease Maternal Aunt Alzheimer's Disease Maternal Uncle Alzheimer's Disease Maternal Uncle Breast Cancer Sister bilateral mastectomy Social History Tobacco Use Smoking status: Former Packs/day: 0.50 Years: 20.00 Pack years: 10.00 Types: Cigarettes Quit date: 04/22/2009 Years since quittin.9 Smokeless tobacco: Never Vaping Use Vaping Use: Never used Substance Use Topics Alcohol use: No Drug use: No Objective BP 164/80 Pulse 85 Temp 36.8 C (98.3 F) Resp 19 Wt 123.7 kg (272 lb 12.8 oz) SpO2 95% BMI 41.48 kg/m Physical Exam Vitals reviewed. Constitutional: Appearance: Normal appearance. HENT: Head: Normocephalic and atraumatic. Musculoskeletal: Comments: No tenderness on palpation of the right groin. She does have pain with active range of motion. Some pain on internal and external passive range of motion. Pain with weightbearing. Pedal pulses 2+. No peripheral edema. Skin is pink and warm. Skin: General: Skin is warm and dry. Neurological: General: No focal deficit present. Mental Status: She is alert. Assessment and Plan ASSESSMENT/PLAN: 1. Groin pain, right - ICD9: 789.03, ICD10: R10.31 x-ray of the right hip ordered as well as an ultrasound to rule out DVT. X-rays show right hip osteoarthritis which is likely the cause of the pain. We will call her on ultrasound results tomorrow. Plan to call in prednisone for pain if ultrasound negative. Patient agreeable with plan - XR HIP GENERAL 3V PELV/AP/LAT RIGHT - US LEG VEIN DVT UNL VAS LAB Anny Iqbal PA-C documented in this encounterRegency Hospital Company11-03-2022 History of Present illness Narrative* Teresa Starr RT(R) - 04/02/2022 3:40 PM EDT Radiology Service Progress Note PATIENT NAME: Berenice Givens DATE OF SERVICE: April 02, 2022 TIME: 3:35 PM PATIENT IDENTITY VERIFICATION COMPLETED USING TWO (2) IDENTIFIERS: Name and Date of confirmedby patient verbally. FALL SCREENING: Has the patient had 2 falls in the last year or 1 fall with injury or currently using an Ambulatory Assistive Device (Walker, Cane, Wheelchair, Crutches, etc.)? No PATIENT GENDER DATA: Female. status: : No status: NO. PATIENT RELEVANT IMPLANT DATA REVIEWED: Yes RADIOLOGY DEPARTMENT: General X-ray: Exam(s) Completed: Pelvis X-Ray: Pelvis with Hip Right PERIPHERAL IV DATA: Not applicable SIGNED BY: RT Claudio(R) April 02, 2022 3:35 PM documented in this encounterRegency Hospital Company10-06-2022 History of Present illness Narrative* Rajiv Isaac DO - 03/05/2022 11:30 AM EDT [facility] - Follow-up Visit ASSESSMENT: 56 year old female with history significant for remote migraine without aura, depression, HTN, CHATO,with increased migraine and chronic daily headache since Covid March 2020 which has essentially resolved since starting Topamax. PLAN: (Please see typed patient instructions for detailed instructions) Acute Headache Treatment: (What to take as-needed for headache) 1) OTC prn. Headache Preventive Treatment (What to take on a daily basis to try to lessen frequency and/or intensity of headache): 1) Topamax 100 mg qhs. We discussed the option to wean off whenever she would like to try. She prefers to continue for now. 2) Continue supplements. 3) Lostartan and Zoloft per her doctor. ---> Follow-up: prn. Last visit: 05/28/21 with me Interval Headache Hx: Doing very well with rare to no headaches since starting Topamax. Hesitant to stop since she has been doing so well. New Labs/Imaging: Component Latest Ref Rng & Units 12/23/2021 02/20/2022 02/26/2022 Protein, Total 6.3 - 8.0 g/dL 7.5 Albumin 3.9 - 4.9 g/dL 4.5 Calcium 8.5 - 10.2 mg/dL 9.8 Bilirubin, Total 0.2 - 1.3 mg/dL 0.5 Alkaline Phosphatase 34 - 123 U/L 118 AST 13 - 35 U/L 33 ALT 7 - 38 U/L 35 Glucose 74 - 99 mg/dL 104 (H) BUN 7 - 21 mg/dL 13 Creatinine 0.58 - 0.96 mg/dL 0.77 Sodium 136 - 144 mmol/L 140 Potassium 3.7 - 5.1 mmol/L 3.8 Chloride 97 - 105 mmol/L 104 CO2 22 - 30 mmol/L 25 Anion Gap 9 - 18 mmol/L 11 eGFR >=60 mL/min/1.73m 91 WBC 3.70 - 11.00 k/uL 9.18 RBC 3.90 - 5.20 m/uL 4.50 Hemoglobin 11.5 - 15.5 g/dL 13.7 Hematocrit 36.0 - 46.0 % 42.5 MCV 80.0 - 100.0 fL 94.4 MCH 26.0 - 34.0 pg 30.4 MCHC 30.5 - 36.0 g/dL 32.2 RDW-CV 11.5 - 15.0 % 12.0 Platelet Count 150 - 400 k/uL 313 MPV 9.0 - 12.7 fL 10.1 Absolute nRBC <0.01 k/uL <0.01 Cholesterol, Total <200 mg/dL 234 (H) Triglyceride <150 mg/dL 121 HDL Cholesterol >39 mg/dL 42 Non HDL Cholesterol <130 mg/dL 192 (H) Fasting Time hrs 12 VLDL Cholesterol <30 mg/dL 24 TC:HDL Ratio <5.10 5.57 (H) LDL Cholesterol <100 mg/dL 168 (H) LDL:HDL Ratio <2.54 4.00 (H) HIV 12 Combo (Ag/Ab) Nonreactive Nonreactive HIV 1/2 Ab HIV Interpretation SSA Antibody Qual Negative Negative Anti-SSA <1.0 AI <0.2 Anti-SSB <1.0 AI <0.2 SSB Antibody Qual Negative Negative CENTROMERE AB QUAL Negative Negative Centromere Ab <1.0 AI <0.2 Hemoglobin A1C 4.3 - 5.6 % 5.7 (H) Estimated Average Glucose mg/dL 117 MARCUS Negative Negative DNA Antibody w/Confirmation <30 IU/mL 22.27 C3 86 - 166 mg/dL 177 (H) C4 13 - 46 mg/dL 28 CRP <0.9 mg/dL 1.1 (H) WSR 0 - 20 mm/hr 30 (H) Rheumatoid Factor <16 IU/mL <10 TSH 0.270 - 4.200 mIU/L 1.490 HEADACHE SCORES: Headache Questions 05/26/2021 02/26/2022 ID Migraine Screener: 0 (Negative) - ER visits in the last year: 0 - ER visits since last office visit: - 0 Hospital stays in the last year: 0 - Hospital stays since last office visit - 0 Limited ADLs in the last month: 0 0 Days missed from work or school in the last month: 0 0 Days headache pain free in the last month: 15 28 Days per month with ALL of the following symptoms - decreased productivity, light sensitivity and nausea: 0 0 Initial improvement of headache after botox injection at last visit: - Not applicable, I did not have a botox injection at my last visit PRN medication usage in the last month: 10 0 Patient impression of improvement since last visit: - Much improved HIT-6 05/26/2021 02/26/2022 HIT-6 56 (Substantial impact) 44 (Little or no impact) JL - 2/7 SCORES 03/25/2021 05/26/2021 02/26/2022 JL-2 Score 2 3 3 JL-7 Score - 9 9 Migraine Specific QOL - Higher scores indicate better HRQL 02/26/2022 Role Function-Restrictive Transformed Score (range: 0-100) 100 Role Function-Preventive Transformed Score (range: 0-100) 100 Emotional Function Transformed Score (range: 0-100) 100 PHQ-9 05/26/2021 02/26/2022 Score 8 7 MEDS: Current Outpatient Medications Medication Sig lansoprazole (PREVACID) 30 mg capsule Take 1 capsule by mouth once daily. metFORMIN ER (GLUCOPHAGE XR) 500 mg 24 hr tablet Take 1 tablet by mouth daily with breakfast. Forgot Rx when traveling, do not cancel [facility] Rx omega-3 acid ethyl esters (LOVAZA) 1 gram capsule TAKE 2 CAPSULES ONCE DAILY folic acid 1 mg tablet Take 2 tablets by mouth once daily. mometasone (ELOCON) 0.1 % cream Apply 1 application to affected area once daily. sertraline (ZOLOFT) 100 mg tablet Take 1 tablet by mouth once daily. Forgot Rx when traveling, do not cancel [facility] Rx tirzepatide (MOUNJARO) 2.5 mg/0.5 mL pen injector Inject 2.5 mg subcutaneously one time a week. hydrOXYchloroQUINE (PLAQUENIL) 200 mg tablet Take 1 tablet by mouth twice daily. Forgot Rx when traveling, do not cancel [facility] Rx levothyroxine (LEVOXYL) 100 mcg tablet Take 1 tablet by mouth once daily. Take on empty stomach. For Thyroid. losartan (COZAAR) 25 mg tablet TAKE 3 TABLETS ONCE DAILY diclofenac, EC, (VOLTAREN) 75 mg EC tablet Take 1 tablet by mouth twice daily. topiramate (TOPAMAX) 100 mg tablet Take 1 tablet by mouth every evening. cholecalciferol (VITAMIN D3) 5,000 unit tab Take 1 tablet by mouth once daily. albuterol HFA (PROVENTIL HFA, VENTOLIN HFA) 90 mcg/actuation inhaler Inhale 2 Puffs as instructed every 6 hours as needed for Wheezing/Shortness of Breath. MV with Fmo-Yialngeh-Repwjr (CENTRUM SILVER) 0.4-300-250 mg-mcg-mcg tab Take 1 tablet by mouth oncedaily. Current Facility-Administered Medications Medication Dose Route Frequency perflutren lipid microspheres 1.3 mL in NaCl (PF) 0.9% 10 mL injection (DEFINITY) INTRAVENOUS DIRECTED PRN sodium chloride 0.9 % (flush) 10 mL (BD POSIFLUSH) 10 mL INTRAVENOUS DIRECTED PRN Prior Therapies Duration of Use Dose Reason for Discontinuation Analgesic Diclofenac (Voltaren, Cataflam, Cambia) Anti-Depressant and Antipsychotic Bupropion (Wellbutrin) Sertraline (Zoloft) Blood Pressure Amlodipine Lisinopril (Zestril) Propranolol (Inderal) Other Medications Dexamethasone (Decadron) Over the Counter Medications Acetaminophen (Tylenol) Acetaminophen/Aspirin/Caffeine (Excedrin, Goody s) Aspirin Ibuprofen (Advil, Motrin) Naproxen sodium (Aleve) REVIEW OF SYSTEMS: Review of system : unchanged from the previous visit (sleep patterns, mood, energy, appetite, stress, exercising). Physical Examination: BP 143/80 Pulse 75 Wt 124.7 kg (275 lb) BMI 41.81 kg/m GEN: Alert. NAD. Normal affect. Cooperative. NEUROLOGICAL: Alert and oriented. Attentive. Thought process and content unremarkable. Follows commands appropriately. Speech fluent. Stable primary gait. Rajiv Isaac DO [facility] [place] [facility] [address] [place] [address] Level of service: Est level 2 (10-19 min). Time spent 16 min on the day of service, which included preparing to see the patient, [id number] patient care, completing clinical documentation, obtaining and/or reviewing separately obtained history, counseling and educating the patient/family/caregiver, and ordering medications, tests, or procedures. Medical Decision Making: Medical Decision Making Level: 1 - N/A cc: David Chicas [address] [place] [address] documented in this encounterRegency Hospital Company10-04-2022 Miscellaneous Notes* Telephone Encounter - Jodie Valerio MA - 03/03/2022 9:07 AM EDT Patient is notified of message below and verbalized understanding of instructions. Jodie Valerio MA * Telephone Encounter - Darrell Jack MD - 03/03/2022 9:00 AM EDT Please let her know i'm not sure what happened, if the pharmacy didn't get the updates or what. Butour medication list does show that I [facility] the [facility] I had cancelled the methotrexate rx to the local pharmacy * Telephone Encounter - Sharon Flowers - 02/27/2022 4:21 PM EDT Patient identified by name and date. On Wednesday patient had a Zoom office visit with Dr. Jack. They discussed changing Plaquenil to 2 twice daily. When patient went to the Pharmacy to rock picker the script it was not Plaquenil, but Methotrexate. She would like to be called at [phone] to discuss this issue. ALBANIA Suarez documented in this encounterRegency Hospital Company10-03-2022 Miscellaneous Notes* Telephone Encounter - Zach Mir RP - 03/02/2022 11:[address] Chicas, We received notice that the industrial gas fitter updated the co-pay card and their website on 02/28/22. The program has added an attestation where the patient needs to click that they are taking this medication for DM2 only. Also, now patients need to download the card on their own on the website because they need to confirm the indication and agree to the terms. I think the program saw a trend of large use of this medication for weight management as off label use, so they now require that patients confirm they are taking it for DM2 only. So moving forward wecan only use the coupon for DM2. I think anyone who already activated this coupon before the change should be able to still use it, but anyone activating it after must agree that they are taking it for DM2 only unfortunately. Thanks, Zach Mir RP * Telephone Encounter - David Chicas MD - 02/27/2022 5:17 PM EDT Noted. Zach, Are we still able to avail of the 25 dollar coupon for Mounjaro. Over the past 2 days we have not been getting the coupon. Regards, David Chicas MD * Telephone Encounter - Iveth Ortega LPN - 02/26/2022 2:00 PM EDT Denied CaseId:[id number];Status:Denied;Review Type:Prior Auth;Appeal Information: Attention:ATTN: CLINICAL APPEALS DEPARTMENT [facility] [address] [address],[facility],[id number] ; Important - Please read the below note on eAppeals: Please reference the denial letter for information on the rights for an appeal, rationale for the denial, and how to submit an appeal including if any information is needed to support the appeal. Note about urgent situations - Generally, anurgent situation is one which, in the opinion of the provider, the health of the patient may be in serious jeopardy or may experience pain that cannot be adequately controlled while waiting for a deci moon on the appeal.; * Telephone Encounter - Iveth Ortega LPN - 02/26/2022 1:47 PM EDT Electronic PA completed for Sig: Inject 2.5 mg subcutaneously one time a week. Sent to pharmacy as: tirzepatide (MOUNJARO) 2.5 mg/0.5 mL pen injector documented in this encounterRegency Hospital Company09-28-2022 Miscellaneous Notes* Addendum Note - Darrell Jack MD - 02/25/2022 3:56 PM EDTAddended by: DARRELL JACK on: 02/25/2022 03:56 PM Modules accepted: Orders documented in this encounterRegency Hospital Company09-28-2022 History of Present illness Narrative* Darrell Jack MD - 02/25/2022 2:55 PM EDT On 02/25/2022, I had the pleasure of evaluating Berenice Givens in a follow-up [facility] Rheumatology appointment for SLE. This Team Access Model visit is a virtual encounter utilizing both video and audio components. It required patient-provider interaction for the medical decision making as documented below. HPI: To review, Berenice Givens is a 56 year old female (goes by Kate) - At age 23, noted onset of malar rash (which was incorrectly diagnosed and managed as acne x1 year), joint pain (including knees), photosensitivity and mouth sores. Diagnosed with SLE. Was initiallytreated with injections (she's guessing of steroids), which stopped as it got to be too much (wouldhave 18 facial injections at a time) - In , started on HCQ with significant improvement in rash and joint pain - In November, reported pain in the R 2nd MCP, bilateral DIPs, hips, knees, ankles, low back and neck. Had injections of the spine, neck helped more than low back but low back injections helped a little. PT done in for tibialis tendinitis of both ankles without relief. Most concerning area of pain was the low back, ankles and hands. - Today, reports trying tylenol x3 weeks which made things worse-every part of her body hurt with this. Went back on diclofenac PO which works a lot better for her. - Has pain in the bilateral wrists and MCPs, some in the PIPs - Last plaquenil eye exam normal in August PAST MEDICAL HISTORY Diagnosis Date Abdominal pain, epigastric Cigarette smoker 06/27/2021 Depressive disorder, not elsewhere classified Diaphragmatic hernia without mention of obstruction or gangrene Lupus erythematosus Migraine, unspecified, with intractable migraine, so stated, without mention of status migrainosus Migraine Obstructive sleep apnea syndrome, severe with associated hypoxemia. patient declined to schedule follow up testing for CPAP Unspecified essential hypertension GERD PAST SURGICAL HISTORY Procedure Laterality Date CHOLECYSTECTOMY 10/03 Cholecystectomy COLONOSCOPY FLX DX W/COLLJ SPEC WHEN PFRMD 12/10/2017 Colonoscopy ESOPHAGOGASTRODUODENOSCOPY TRANSORAL DIAGNOSTIC EGD ESOPHAGOGASTRODUODENOSCOPY TRANSORAL DIAGNOSTIC 12/10/2017 EGD PAST SURGICAL HISTORY OF trigger finger PAST SURGICAL HISTORY OF heel spur PAST SURGICAL HISTORY OF carpal tunnel PAST SURGICAL HISTORY OF 03/09/12 endovenous laser ablation of L great saphenous vein, small saphenous vein and vein of Giacomini ALLERGIES Allergen Reactions Lisinopril Intolerance sleepy Pravastatin Contraindication-Medical Surgical myositis Zithromax [Azithrom* Abdominal cramping MEDICATIONS: Current Outpatient Medications Medication Sig lansoprazole (PREVACID) 30 mg capsule Take 1 capsule by mouth once daily. hydrOXYchloroQUINE (PLAQUENIL) 200 mg tablet Take 1 tablet by mouth once daily. Forgot Rx when traveling, do not cancel [facility] metFORMIN ER (GLUCOPHAGE XR) 500 mg 24 hr tablet Take 1 tablet by mouth daily with breakfast. Forgot Rx when traveling, do not cancel [facility] Rx omega-3 acid ethyl esters (LOVAZA) 1 gram capsule TAKE 2 CAPSULES ONCE DAILY folic acid 1 mg tablet Take 2 tablets by mouth once daily. mometasone (ELOCON) 0.1 % cream Apply 1 application to affected area once daily. sertraline (ZOLOFT) 100 mg tablet Take 1 tablet by mouth once daily. Forgot Rx when traveling, do not cancel [facility] Rx tirzepatide (MOUNJARO) 2.5 mg/0.5 mL pen injector Inject 2.5 mg subcutaneously one time a week. levothyroxine (LEVOXYL) 100 mcg tablet Take 1 tablet by mouth once daily. Take on empty stomach. For Thyroid. losartan (COZAAR) 25 mg tablet TAKE 3 TABLETS ONCE DAILY diclofenac, EC, (VOLTAREN) 75 mg EC tablet Take 1 tablet by mouth twice daily. topiramate (TOPAMAX) 100 mg tablet Take 1 tablet by mouth every evening. cholecalciferol (VITAMIN D3) 5,000 unit tab Take 1 tablet by mouth once daily. albuterol HFA (PROVENTIL HFA, VENTOLIN HFA) 90 mcg/actuation inhaler Inhale 2 Puffs as instructed every 6 hours as needed for Wheezing/Shortness of Breath. MV with Goz-Uxynnglq-Ktmnyg (CENTRUM SILVER) 0.4-300-250 mg-mcg-mcg tab Take 1 tablet by mouth oncedaily. Current Facility-Administered Medications Medication Dose Route Frequency perflutren lipid microspheres 1.3 mL in NaCl (PF) 0.9% 10 mL injection (DEFINITY) INTRAVENOUS DIRECTED PRN sodium chloride 0.9 % (flush) 10 mL (BD POSIFLUSH) 10 mL INTRAVENOUS DIRECTED PRN FAMILY HISTORY Problem Relation Age of Onset Cancer Paternal Grandfather Lung Diabetes Mother Alzheimer's Disease Mother Heart Maternal Grandfather Alzheimer's Disease Maternal Grandmother Alzheimer's Disease Maternal Aunt Alzheimer's Disease Maternal Uncle Alzheimer's Disease Maternal Uncle Breast Cancer Sister bilateral mastectomy SOCIAL HISTORY: Lives in [place] with spouse. Retired from working at a [employer] Tobacco use: None Alcohol use: None Drug use: None PHYSICAL EXAM: CONSTITUTIONAL: Well-appearing, in NAD. SKIN: No rash. No alopecia. EYES: No scleral icterus or conjunctivitis NEURO: Awake, alert and oriented *November Widespread Pain Index: 4 (0-19) Symptoms Severity Scale: 7 (0-12) WPI>7 and SS Scale>5 OR WPI 3-6 and SS Scale >9 consistent with fibromyalgia LABORATORY: Component Latest Ref Rng & Units 02/20/2022 Protein, Total 6.3 - 8.0 g/dL 7.5 Albumin 3.9 - 4.9 g/dL 4.5 Calcium 8.5 - 10.2 mg/dL 9.8 Bilirubin, Total 0.2 - 1.3 mg/dL 0.5 Alkaline Phosphatase 34 - 123 U/L 118 AST 13 - 35 U/L 33 ALT 7 - 38 U/L 35 Glucose 74 - 99 mg/dL 104 (H) BUN 7 - 21 mg/dL 13 Creatinine 0.58 - 0.96 mg/dL 0.77 Sodium 136 - 144 mmol/L 140 Potassium 3.7 - 5.1 mmol/L 3.8 Chloride 97 - 105 mmol/L 104 CO2 22 - 30 mmol/L 25 Anion Gap 9 - 18 mmol/L 11 eGFR >=60 mL/min/1.73m 91 WBC 3.70 - 11.00 k/uL 9.18 RBC 3.90 - 5.20 m/uL 4.50 Hemoglobin 11.5 - 15.5 g/dL 13.7 Platelet Count 150 - 400 k/uL 313 MPV 9.0 - 12.7 fL 10.1 Absolute nRBC <0.01 k/uL <0.01 Component Latest Ref Rng & Units 12/23/2021 Protein, Urine Random 0 - 20 mg/dL 8 Creatinine, Ur Random (UCRR) 20.0 - 300.0 mg/dL 105.4 Protein/Creat Ratio <0.2 0.1 Sm Antibody Negative Negative Anti-Sm <1.0 AI 0.2 CEMENT RUBBER Antibody QUAL Negative Negative Anti-CEMENT RUBBER <1.0 AI 0.9 SSA Antibody Qual Negative Negative Anti-SSA <1.0 AI <0.2 Anti-SSB <1.0 AI <0.2 SSB Antibody Qual Negative Negative CENTROMERE AB QUAL Negative Negative Centromere Ab <1.0 AI <0.2 Scleroderma Ab Qual Negative Negative Scl-70 Abs, EIA <1.0 AI <0.2 ROSEANNE 1 ANTIBODY QUAL Negative Negative Roseanne 1 Antibody <1.0 AI <0.2 Ribosomal CEMENT RUBBER Qualitative Negative Negative Ribosomal CEMENT RUBBER Ab <1.0 AI <0.2 Chromatin Ab Qual Negative Negative Chromatin Ab <1.0 AI <0.2 MARCUS Negative Negative DNA Antibody w/Confirmation <30 IU/mL 22.27 C3 86 - 166 mg/dL 177 (H) C4 13 - 46 mg/dL 28 CRP <0.9 mg/dL 1.1 (H) WSR 0 - 20 mm/hr 30 (H) Rheumatoid Factor <16 IU/mL <10 Hemoglobin/Blood,Ur Negative Negative Component Latest Ref Rng & Units 07/16/2014 02/19/2021 05/09/2021 08/13/2021 MARCUS NEGAT Negative MARCUS Titer NEGAT Negative MARCUS Pattern Not applicable for negative result. CCP Antibody, IgG <20 Units <15 Rheumatoid Factor <20 IU/mL <10 WSR 0 - 20 mm/hr 22 (H) CRP <0.9 mg/dL 1.3 (H) PTH, Intact 15 - 65 pg/mL 42 TSH 0.270 - 4.200 mIU/L 0.889 STUDIES: *Jan US wrist/hand- MILD SCATTERED ACTIVE SYNOVITIS, DETAILED. L side: 3rd MCP, radiocarpal and carpal joints. R side: 2nd MCP *November xray hands/l-spine- DJD of hands/l-spine *Jan CT chest- No CT evidence of pulmonary embolism. Lung parenchyma and airways: The central airways are patent. A band like opacity noted in the left lower lobe, likely representing subsegmental atelectasis; otherwise the lungs are clear of consolidations. There appears to be a 3 mm nodule in the juxtapleural area in the right upper lobe, series 6 image 51. No masses identified. Pleural space: No pleural effusion or pneumothorax. No pleural thickening. Lower neck, lymph nodes, and mediastinum: The imaged thyroid gland is normal. No lymphadenopathy in the supraclavicular, axillary, mediastinal, or hilar regions. *Apr xray feet- HALLUX VALGUS WITH MIDFOOT DEGENERATIVE CHANGES AND CALCANEAL ENTHESOPHYTES ON THE LEFT. CALCANEAL ENTHESOPHYTE AT THE PLANTAR FASCIA AND ACHILLES TENDON INSERTION ON THE RIGHT WITH EVIDENCE FOR REMOTE LIGAMENT INJURY. TALUS IMPRESSION and PLAN: 1. Inflammatory arthritis: Prior dx of SLE with history of malar rash, photosensitivity, mouth sores and joint pain with significant improvement s/p HCQ initiation, negative [facility] MARCUS by IFA on multiple occasions. US with mild synovitis of the wrist and multiple bilateral MCPs. Remains with wrist andMCP pain bilaterally. Seronegative RA also is in the differential - Explained the diagnosis including active inflammation per US and potential for joint damage with ongoing inflammation - Increase to HCQ 200mg/day along with routine eye exams, last normal in Apr. Advised if the increased dose doesn't help in 3 months, that MTX initiation can then be considered - Potential MTX side effects were explained including liver toxicity, lung toxicity, bone marrow suppression, increased risk for infection, mouth sores, nausea/vomiting, and diarrhea. Explained that methotrexate should be held in case of infection and restarted after symptoms resolve or after antibiotics are completed. Advised taking folic acid to help offset some of the potential side effects such as mouth sores. Explained that routine lab monitoring will be required every month for the first 3 months and if stable, every 3 months thereafter while on methotrexate. Also advised that alcohol be avoided while on methotrexate in order to reduce risk for liver toxicity. Advised that methotrexate be held for 1 week after any potential future vaccination to optimize the body's ability to build immunity from the vaccine. - Check hep remote panel and CCP. Notify of results via [employer] 2. Generalized osteoarthritis: Hands (per exam), likely spine, knees. Tylenol alone ineffective - Diclofenac prn. R/B/A of NSAIDs discussed in the past - Given referrals to PT and spine clinic in the past 3. General health maintenance: - Completed the covid vaccination series in August, Feb. Advised to get updated danny andthe flu shot - Continue follow-up with PCP for routine health maintenance and malignancy screening Follow-up in 4 & 8 months with Emanuel and 1 year with me or sooner if needed. Patient was instructed to call if any questions or concerns. Thank you for allowing me to participate in the care of your patient. Darrell Jack MD documented in this encounterRegency Hospital Company09-28-2022 History of Present illness Narrative* David Chicas MD - 02/25/2022 1:25 PM EDT Reason for Visit Patient presents with: F/U 6 months Berenice Givens is a 56 year old female who presents here today for Above Complaints.. Health Maintenance HEPATITIS B(1 of 3 - 3-dose series) HIV SCREENING BP CONTROLLED (<130/80) SHINGRIX VACCINE(1 of 2) PNEUMOCOCCAL(2 - PCV) DTAP,TDAP,TD(3 - Td or Tdap) COVID-19 VACCINE(4 - Booster for Pfizer series) INFLUENZA(1) PAP TESTING HPI Prediabetes: her hba1c is much better than before she was on metformin to improve insulin resistance. Since she has commercial insurance she may be able to get on Mounjaro. HTN: Compliant with medications. Denies any chest pain, palpitations, or edema. No SOB. Doesn't check BP at home generally. Careful with diet to avoid salt, trying to eat more fruits and vegetables, exercises regularly. Lipid are on the higher, she does not tolerate statins. Her hdl is a little higher than it ever was She cut out pop and soda, stays away from red meat a lot. Eats a lot of chicken etc Gerd is controlled on prevacid, and that is the only medication that work Lupus - is on plaqunil and takes diclofenac daily , it helps her. She was asked to stop taking the nsaid but she could not tolerate the pain, her gfr is 93 Anxiety and depression controlled on zoloft. For weight loss, she is willing to consider mounjaro. No problem-specific Assessment & Plan notes found for this encounter. PAST MEDICAL HISTORY Diagnosis Date Abdominal pain, epigastric Cigarette smoker 06/27/2021 Depressive disorder, not elsewhere classified Diaphragmatic hernia without mention of obstruction or gangrene Lupus erythematosus Migraine, unspecified, with intractable migraine, so stated, without mention of status migrainosus Migraine Obstructive sleep apnea syndrome, severe with associated hypoxemia. patient declined to schedule follow up testing for CPAP Unspecified essential hypertension PAST SURGICAL HISTORY Procedure Laterality Date CHOLECYSTECTOMY 10/03 Cholecystectomy COLONOSCOPY FLX DX W/COLLJ SPEC WHEN PFRMD 12/10/2017 Colonoscopy ESOPHAGOGASTRODUODENOSCOPY TRANSORAL DIAGNOSTIC EGD ESOPHAGOGASTRODUODENOSCOPY TRANSORAL DIAGNOSTIC 12/10/2017 EGD PAST SURGICAL HISTORY OF trigger finger PAST SURGICAL HISTORY OF heel spur PAST SURGICAL HISTORY OF carpal tunnel PAST SURGICAL HISTORY OF 03/09/12 endovenous laser ablation of L great saphenous vein, small saphenous vein and vein of Giacomini FAMILY HISTORY Problem Relation Age of Onset Cancer Paternal Grandfather Lung Diabetes Mother Alzheimer's Disease Mother Heart Maternal Grandfather Alzheimer's Disease Maternal Grandmother Alzheimer's Disease Maternal Aunt Alzheimer's Disease Maternal Uncle Alzheimer's Disease Maternal Uncle Breast Cancer Sister bilateral mastectomy Social History Tobacco Use Smoking status: Former Packs/day: 0.50 Years: 20.00 Pack years: 10.00 Types: Cigarettes Quit date: 04/22/2009 Years since quittin.8 Smokeless tobacco: Never Vaping Use Vaping Use: Never used Substance Use Topics Alcohol use: No Drug use: No Past medical history, appointments, medications, allergies reviewed. Pertinent Lab/Diagnostic Studies are reviewed and discussed today Current Outpatient Medications: levothyroxine (LEVOXYL) 100 mcg tablet losartan (COZAAR) 25 mg tablet diclofenac, EC, (VOLTAREN) 75 mg EC tablet topiramate (TOPAMAX) 100 mg tablet cholecalciferol (VITAMIN D3) 5,000 unit tab sertraline (ZOLOFT) 100 mg tablet mometasone (ELOCON) 0.1 % cream omega-3 acid ethyl esters (LOVAZA) 1 gram capsule lansoprazole (PREVACID) 30 mg capsule folic acid 1 mg tablet hydrOXYchloroQUINE (PLAQUENIL) 200 mg tablet metFORMIN ER (GLUCOPHAGE XR) 500 mg 24 hr tablet albuterol HFA (PROVENTIL HFA, VENTOLIN HFA) 90 mcg/actuation inhaler MV with Edh-Bdhkjbhc-Imbosp (CENTRUM SILVER) 0.4-300-250 mg-mcg-mcg tab Current Facility-Administered Medications: perflutren lipid microspheres 1.3 mL in NaCl (PF) 0.9% 10 mL injection (DEFINITY) sodium chloride 0.9 % (flush) 10 mL (BD POSIFLUSH) Review of Systems CONSTITUTIONAL: No fevers, chills night sweats, unintended weight loss CARDIOVASCULAR: No chest pain, dyspnea, palpitations, orthopnea, PND, ankle edema. PULM: No dyspnea, unexplained cough. GI: No dysphagia/odynophagia, problematic reflux, constipation, diarrhea, changes in stool habits, hematochezia, melena. : No new urinary complaints, including dysuria, gross hematuria or pyuria. NEURO: No new balance problems, peripheral weakness/paresthesias or numbness of concern. Physical Exam BP 134/74 (BP Site: Left Arm, BP Position: Sitting, BP Cuff Size: Large Adult) Temp 37.9 C (100.2F) Resp 15 Ht 172.7 cm (5' 8) Wt 123.4 kg (272 lb) BMI 41.36 kg/m General appearance: Well appearing, alert, in no acute distress, well nourished. Skin: Skin color, texture, turgor normal, no suspicious rashes or lesions Head: Normocephalic, no masses, lesions, tenderness or abnormalities Eyes: Anicteric sclera. Pupils are equally round and reactive to light. Extraocular movements are intact. Lungs: Lungs clear to auscultation. No wheezing, rhonchi, rales Heart: RRR without murmur, gallop, or rubs. Extremities: No deformities, edema, skin discoloration, clubbing or cyanosis. Good capillary refill. ASSESSMENT/PLAN: 1. Prediabetes - ICD9: 790.29, ICD10: R73.03 (primary diagnosis) That along with weight loss - TIRZEPATIDE 2.5 MG/0.5 ML SUBCUTANEOUS PEN INJECTOR 2. Lupus erythematosus, unspecified form - ICD9: 695.4, ICD10: L93.0 - HYDROXYCHLOROQUINE 200 MG TABLET - MOMETASONE 0.1 % TOPICAL CREAM 3. Metabolic syndrome - ICD9: 277.7, ICD10: E88.81 - METFORMIN ER 500 MG TABLET,EXTENDED RELEASE 24 HR 4. Depression with anxiety - ICD9: 300.4, ICD10: F41.8 - SERTRALINE 100 MG TABLET 5. Screening for HIV (human immunodeficiency virus) - ICD9: V73.89, ICD10: Z11.4 - HIV 1 2 COMBO(AG/AB),WITH REFLEX TO DIFFERENTIATION 6. Encounter for immunization - ICD9: V03.89, ICD10: Z23 - PNEUMOCOCCAL VACCINE (PREVNAR 20) David Chicas MD documented in this encounterRegency Hospital Company08-02-2022 Miscellaneous Notes* Telephone Encounter - Refugio Valdes - 12/30/2021 11:05 AM EDT Pt is scheduled for their [facility] US on 02/24 at [facility] * Telephone Encounter - Refugio Valdes - 12/30/2021 10:36 AM EDT Called patient on 12/30 at 10:36 to schedule their MSK US exam. No answer. * Telephone Encounter - Enmanuel Phoenix - 12/30/2021 10:19 AM EDT Patient called the [facility] US Department back on 12/30/21 at 10:16 am. Please give this patient a call back to ensure that they receive an appointment. * Telephone Encounter - Refugio Valdes - 12/30/2021 10:14 AM EDT Called patient on 12/30 at 10:14 to schedule their MSK US exam. No answer, left VM, 1st attempt. * Telephone Encounter - Refugio Valdes - 12/29/2021 4:45 PM EDT Visit Type: MSK SYN Visit Length: 45, 50 OR 60 MINUTES Order Name/Protocol: US HAND/WRIST SYNOVIAL SCREEN LT+RT Preferred Provider: N/A Comment: N/A Location: ANY FACILITY Slot held: N/A documented in this encounterRegency Hospital Company07-26-2022 History of Present illness Narrative* Maddi Cordova RT(R) - 12/23/2021 5:00 PM EDT Radiology Service Progress Note PATIENT NAME: Berenice Givens DATE OF SERVICE: December 23, 2021 TIME: 3:35 PM PATIENT IDENTITY VERIFICATION COMPLETED USING TWO (2) IDENTIFIERS: Name and Date of confirmedby patient verbally. FALL SCREENING: Has the patient had 2 falls in the last year or 1 fall with injury or currently using an Ambulatory Assistive Device (Walker, Cane, Wheelchair, Crutches, etc.)? No PATIENT GENDER DATA: Female. status: : No status: NO. PATIENT RELEVANT IMPLANT DATA REVIEWED: Not Applicable RADIOLOGY DEPARTMENT: General X-ray: Exam(s) Completed: Spine X-Ray(s): Lumbar AP / LAT / L5-S1 Upper Extremity X-Ray(s): Hand, bilateral PERIPHERAL IV DATA: Not applicable SIGNED BY: RT Cher(R) December 23, 2021 3:35 PM documented in this encounterRegency Hospital Company07-05-2022 Miscellaneous Notes* Telephone Encounter - Brooklyn Paul RN - 12/02/2021 11:58 AM EDT Patient has been identified by name and date of : Yes Patient phones for refill(s): Pending Prescriptions Disp Refills LEVOTHYROXINE 100 MCG TABLET 90 tablet 3 Sig: Take 1 tablet by mouth once daily. Take on empty stomach. For Thyroid. ANDREW: No Date of last office visit in primary care: 08/26/21 Future visit: 02/25/22 Last 2 Encounter Wt Readings: Date: Wt: 08/26/2021 126.1 kg (278 lb) 07/14/2021 130.6 kg (288 lb) Previous labs/tests for medication: Thyroid: TSH Date Value 08/13/2021 0.889 mIU/L 05/09/2021 1.840 uU/mL Please advise. Thank you. Brooklyn Paul RN documented in this encounterRegency Hospital Company04-27-2022 Miscellaneous Notes* Telephone Encounter - Prachi Frias LPN - 09/24/2021 8:14 AM EDT Patient's request for medication is as follows: Pending Prescriptions Disp Refills LOSARTAN 25 MG TABLET 270 tablet 3 Sig: TAKE 3 TABLETS ONCE DAILY ANDREW: Yes Last seen 07/14/2021 in [place]. Follow up scheduled for 07/13/2022. Prescription(s) as above. Please process accordingly. Prachi Frias LPN documented in this encounterRegency Hospital Company04-25-2022 Miscellaneous Notes* Telephone Encounter - LU Almaguer - 09/22/2021 1:26 PM EDT Patient has been identified by name and date of : Yes Patient phones for refill(s): Pending Prescriptions Disp Refills DICLOFENAC SODIUM 75 MG TABLET,DELAYED RELEASE 180 tablet 0 Sig: Take 1 tablet by mouth twice daily. ANDREW: No Date of last office visit in primary care: OV on 08/26/2021 Appointment scheduled for 02/25/2022 Last 2 Encounter Wt Readings: Date: Wt: 08/26/2021 126.1 kg (278 lb) 07/14/2021 130.6 kg (288 lb) Please advise. Thank you. LU Almaguer documented in this encounterRegency Hospital Company04-05-2022 Miscellaneous Notes* Telephone Encounter - Gil Patterson RN - 09/02/2021 11:22 AM EDT [facility] asking for zetia Rx to be a 90 day supply due to plan coverage. Pended. documented in this encounterRegency Hospital Company01-28-2022 History of Past illness Narrative* Problem Noted Date Resolved Date Cigarette smoker 06/27/2021 08/26/2021 documented as of this encounter (statuses as of 09/03/2021) [facility] History of Past illness Narrative* Problem Noted Date Resolved Date Cigarette smoker 06/27/2021 08/26/2021 documented as of this encounter (statuses as of 09/08/2021) [facility] History of Past illness Narrative* Problem Noted Date Resolved Date Cigarette smoker 06/27/2021 08/26/2021 documented as of this encounter (statuses as of 09/22/2021) [address]28-2022 History of Past illness Narrative* Problem Noted Date Resolved Date Cigarette smoker 06/27/2021 08/26/2021 documented as of this encounter (statuses as of 09/24/2021) [address]28-2022 History of Past illness Narrative* Problem Noted Date Resolved Date Cigarette smoker 06/27/2021 08/26/2021 documented as of this encounter (statuses as of 12/30/2021) [address]28-2022 History of Past illness Narrative* Problem Noted Date Resolved Date Cigarette smoker 06/27/2021 08/26/2021 documented as of this encounter (statuses as of 02/25/2022) [address]28-2022 History of Past illness Narrative* Problem Noted Date Resolved Date Cigarette smoker 06/27/2021 08/26/2021 documented as of this encounter (statuses as of 02/25/2022) [address]28-2022 History of Past illness Narrative* Problem Noted Date Resolved Date Cigarette smoker 06/27/2021 08/26/2021 documented as of this encounter (statuses as of 02/25/2022) [address]28-2022 History of Past illness Narrative* Problem Noted Date Resolved Date Cigarette smoker 06/27/2021 08/26/2021 documented as of this encounter (statuses as of 03/02/2022) [address]28-2022 History of Past illness Narrative* Problem Noted Date Resolved Date Cigarette smoker 06/27/2021 08/26/2021 documented as of this encounter (statuses as of 03/03/2022) [address]28-2022 History of Past illness Narrative* Problem Noted Date Resolved Date Cigarette smoker 06/27/2021 08/26/2021 documented as of this encounter (statuses as of 03/05/2022) [address]28-2022 History of Past illness Narrative* Problem Noted Date Resolved Date Cigarette smoker 06/27/2021 08/26/2021 documented as of this encounter (statuses as of 03/20/2022) [address]28-2022 History of Past illness Narrative* Problem Noted Date Resolved Date Cigarette smoker 06/27/2021 08/26/2021 documented as of this encounter (statuses as of 04/02/2022) [address]22 History of Past illness Narrative* Problem Noted Date Resolved Date Cigarette smoker 06/27/2021 08/26/2021 documented as of this encounter (statuses as of 04/03/2022) [address]28-2022 History of Past illness Narrative* Problem Noted Date Resolved Date Cigarette smoker 06/27/2021 08/26/2021 documented as of this encounter (statuses as of 04/22/2022) [address]28-2022 History of Past illness Narrative* Problem Noted Date Resolved Date Cigarette smoker 06/27/2021 08/26/2021 documented as of this encounter (statuses as of 05/01/2022) [address]28-2022 History of Past illness Narrative* Problem Noted Date Resolved Date Cigarette smoker 06/27/2021 08/26/2021 documented as of this encounter (statuses as of 05/24/2022) [address]28-2022 History of Past illness Narrative* Problem Noted Date Resolved Date Cigarette smoker 06/27/2021 08/26/2021 documented as of this encounter (statuses as of 06/09/2022) [address]28-2022 History of Past illness Narrative* Problem Noted Date Resolved Date Cigarette smoker 06/27/2021 08/26/2021 documented as of this encounter (statuses as of 06/25/2022) [address]28-2022 History of Past illness Narrative* Problem Noted Date Resolved Date Cigarette smoker 06/27/2021 08/26/2021 documented as of this encounter (statuses as of 07/09/2022) [address]-2022 History of Past illness Narrative* Problem Noted Date Resolved Date Cigarette smoker 06/27/2021 08/26/2021 documented as of this encounter (statuses as of 07/10/2022) [address]28-2022 History of Past illness Narrative* Problem Noted Date Resolved Date Cigarette smoker 06/27/2021 08/26/2021 documented as of this encounter (statuses as of 07/21/2022) [address]-2022 History of Past illness Narrative* Problem Noted Date Resolved Date Cigarette smoker 06/27/2021 08/26/2021 documented as of this encounter (statuses as of 08/26/2022) [address]22 History of Past illness Narrative* Problem Noted Date Resolved Date Cigarette smoker 06/27/2021 08/26/2021 documented as of this encounter (statuses as of 09/25/2022) [address]28-2022 History of Past illness Narrative* Problem Noted Date Resolved Date Cigarette smoker 06/27/2021 08/26/2021 documented as of this encounter (statuses as of 10/08/2022) [address]28-2022 History of Past illness Narrative* Problem Noted Date Diagnosed Date Resolved Date Cigarette smoker 06/27/2021 08/26/2021 documented as of this encounter (statuses as of 12/30/2022) [address]28-2022 History of Past illness Narrative* Problem Noted Date Diagnosed Date Resolved Date Cigarette smoker 06/27/2021 08/26/2021 documented as of this encounter (statuses as of 01/22/2023) [address]28-2022 History of Past illness Narrative* Problem Noted Date Diagnosed Date Resolved Date Cigarette smoker 06/27/2021 08/26/2021 documented as of this encounter (statuses as of 01/22/2023) [address]28-2022 History of Past illness Narrative* Problem Noted Date Diagnosed Date Resolved Date Cigarette smoker 06/27/2021 08/26/2021 documented as of this encounter (statuses as of 02/12/2023) [address]-2022 History of Past illness Narrative* Problem Noted Date Diagnosed Date Resolved Date Cigarette smoker 06/27/2021 08/26/2021 documented as of this encounter (statuses as of 02/27/2023) [address]-2022 History of Past illness Narrative* Problem Noted Date Diagnosed Date Resolved Date Cigarette smoker 06/27/2021 08/26/2021 documented as of this encounter (statuses as of 03/24/2023) [address]-2022 History of Past illness Narrative* Problem Noted Date Diagnosed Date Resolved Date Cigarette smoker 06/27/2021 08/26/2021 documented as of this encounter (statuses as of 04/03/2023) [address]-2022 History of Past illness Narrative* Problem Noted Date Diagnosed Date Resolved Date Cigarette smoker 06/27/2021 08/26/2021 documented as of this encounter (statuses as of 04/19/2023) [facility]-28-2022 History of Past illness Narrative* Problem Noted Date Diagnosed Date Resolved Date Cigarette smoker 06/27/2021 08/26/2021 documented as of this encounter (statuses as of 08/30/2023) [facility]-28-2022 History of Past illness Narrative* Problem Noted Date Diagnosed Date Resolved Date Cigarette smoker 06/27/2021 08/26/2021 documented as of this encounter (statuses as of 09/14/2023) [facility]-28-2022 History of Past illness Narrative* Problem Noted Date Diagnosed Date Resolved Date Cigarette smoker 06/27/2021 08/26/2021 documented as of this encounter (statuses as of 09/15/2023) [facility]-22-2021 History of Present illness Narrative* Juan M Jensen RT(R) - 02/19/2021 4:25 PM EDT Radiology Service Progress Note PATIENT NAME: Berenice Givens DATE OF SERVICE: February 19, 2021 TIME: 4:32 PM PATIENT IDENTITY VERIFICATION COMPLETED USING TWO (2) IDENTIFIERS: Name and Date of confirmedby patient verbally. FALL SCREENING: Has the patient had 2 falls in the last year or 1 fall with injury or currently using an Ambulatory Assistive Device (Walker, Cane, Wheelchair, Crutches, etc.)? No PATIENT GENDER DATA: Female. status: : No status: NO. PATIENT RELEVANT IMPLANT DATA REVIEWED: Not Applicable RADIOLOGY DEPARTMENT: General X-ray: Exam(s) Completed: Chest X-Ray PERIPHERAL IV DATA: Not applicable SIGNED BY: RT Mariana(Vijay) February 19, 2021 4:32 PM [facility] No data available for this section [facility] Evaluation note* Diagnosis Discoid lupus erythematosus of eyelid, unspecified laterality [facility] Diagnosis Lupus (HCC) Systemic lupus erythematosus [facility]* Diagnosis Prediabetes- Primary Other abnormal glucose Lupus erythematosus, unspecified form Metabolic syndrome Dysmetabolic Syndrome X Depression with anxiety Dysthymic disorder Screening for HIV (human immunodeficiency virus) Special screening examination for other specified viral diseases Encounter for immunization Need for other specified prophylactic vaccination against single bacterial disease [facility]* Diagnosis Lupus (HCC)- Primary Systemic lupus erythematosus Long-term use of Plaquenil Encounter for long-term (current) use of other medications Pain in joint, multiple sites Long-term use of immunosuppressant medication Encounter for long-term (current) use of other medications Inflammatory arthritis Unspecified inflammatory polyarthropathy [facility]* Diagnosis Migraine without aura and without status migrainosus, not intractable- Primary Migraine without aura, without mention of intractable migraine without mention of status migrainosus 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[facility]* Diagnosis Groin pain, right- Primary [facility] noteNo assessment information availableWAdams [facility] Work Phone: Evaluation note* Diagnosis Vitamin D deficiency Unspecified vitamin D deficiency [facility]* Diagnosis Throat pain- Primary [facility]* Diagnosis Inflammatory arthritis- Primary Unspecified inflammatory polyarthropathy Osteoarthritis of multiple joints, unspecified osteoarthritis type Long-term use of Plaquenil Encounter for long-term (current) use of other medications [facility] Diagnosis Essential hypertension- Primary Unspecified essential hypertension Palpitations Hyperlipidemia, unspecified hyperlipidemia type Obesity (BMI 35.0-39.9 without comorbidity) Obesity, unspecified Elevated hemoglobin A1c Other abnormal blood chemistry [facility]* Diagnosis Insulin resistance- Primary Dysmetabolic Syndrome X Metabolic syndrome Dysmetabolic Syndrome X Prediabetes Other abnormal glucose Morbid obesity (HCC) Morbid obesity Breast cancer screening by mammogram Essential hypertension Unspecified essential hypertension Hyperlipidemia, unspecified hyperlipidemia type WHITNEY (dyspnea on exertion) Other dyspnea and respiratory abnormality [facility]* Diagnosis Discoid lupus erythematosus of eyelid, unspecified laterality [facility]* Diagnosis Inflammatory arthritis- Primary Unspecified inflammatory polyarthropathy Osteoarthritis of multiple joints, unspecified osteoarthritis type Encounter for long-term (current) use of NSAIDs Encounter for long-term (current) use of non-steroidal anti-inflammatories [facility]* Diagnosis Lupus erythematosus, unspecified form [facility]* Diagnosis Prediabetes Other abnormal glucose Hypothyroidism Unspecified hypothyroidism [facility]* Diagnosis Essential hypertension- Primary Unspecified essential hypertension Mixed hyperlipidemia Lupus erythematosus, unspecified form Prediabetes Other abnormal glucose Acquired hypothyroidism Unspecified hypothyroidism Depression with anxiety Dysthymic disorder Gastroesophageal reflux disease, unspecified whether esophagitis present Travel advice encounter Other specified counseling Need for influenza vaccination Need for prophylactic vaccination and inoculation against influenza [facility]* Diagnosis Inflammatory arthritis- Primary Unspecified inflammatory polyarthropathy Long-term use of Plaquenil Encounter for long-term (current) use of other medications Osteoarthritis of multiple joints, unspecified osteoarthritis type [facility] Diagnosis Bilateral foot pain Pain in limb [facility] Diagnosis Vitamin D deficiency Unspecified vitamin D deficiency [facility]* Diagnosis Lupus erythematosus, unspecified form [facility]* Diagnosis Migraine without aura and without status migrainosus, not intractable- Primary Migraine without aura, without mention of intractable migraine without mention of status migrainosus [facility] Diagnosis Acute pain of left knee- Primary Arthritis of knee Unspecified arthropathy, lower leg [facility]* Diagnosis Essential hypertension- Primary Unspecified essential hypertension Hyperlipidemia, unspecified hyperlipidemia type Preoperative clearance Preoperative examination, unspecified [facility]* Diagnosis Prediabetes Other abnormal glucose Hyperlipidemia Other and unspecified hyperlipidemia Hypothyroidism Unspecified hypothyroidism [facility]* Diagnosis Essential hypertension- Primary Unspecified essential hypertension Mixed hyperlipidemia Prediabetes Other abnormal glucose Hypothyroidism, unspecified type [facility]* Diagnosis Metabolic syndrome- Primary Dysmetabolic Syndrome X Unspecified essential hypertension Lupus erythematosus, unspecified form Morbid obesity, unspecified obesity type (HCC) Prediabetes Other abnormal glucose Depressive disorder, not elsewhere classified- Primary Unspecified essential hypertension Morbid obesity, unspecified obesity type (HCC) Prediabetes Other abnormal glucose Morbid obesity (HCC) Morbid obesity Essential hypertension Unspecified essential hypertension Acquired hypothyroidism Unspecified hypothyroidism Lupus erythematosus, unspecified form Acquired hypothyroidism- Primary Unspecified hypothyroidism Metabolic syndrome Dysmetabolic Syndrome X Lupus erythematosus, unspecified form Essential hypertension Unspecified essential hypertension Morbid obesity (HCC) Morbid obesity Elevated liver enzymes Other nonspecific abnormal serum enzyme levels Metabolic syndrome Dysmetabolic Syndrome X [facility]* Diagnosis Metabolic syndrome- Primary Dysmetabolic Syndrome X Unspecified essential hypertension Lupus erythematosus, unspecified form Morbid obesity, unspecified obesity type (HCC) Prediabetes Other abnormal glucose Depressive disorder, not elsewhere classified- Primary Unspecified essential hypertension Morbid obesity, unspecified obesity type (HCC) Prediabetes Other abnormal glucose Morbid obesity (HCC) Morbid obesity Essential hypertension Unspecified essential hypertension Acquired hypothyroidism Unspecified hypothyroidism Lupus erythematosus, unspecified form Acquired hypothyroidism- Primary Unspecified hypothyroidism Metabolic syndrome Dysmetabolic Syndrome X Lupus erythematosus, unspecified form Essential hypertension Unspecified essential hypertension Morbid obesity (HCC) Morbid obesity Elevated liver enzymes Other nonspecific abnormal serum enzyme levels Depression with anxiety Dysthymic disorder [facility]* Diagnosis Metabolic syndrome- Primary Dysmetabolic Syndrome X Unspecified essential hypertension Lupus erythematosus, unspecified form Morbid obesity, unspecified obesity type (HCC) Prediabetes Other abnormal glucose Depressive disorder, not elsewhere classified- Primary Unspecified essential hypertension Morbid obesity, unspecified obesity type (HCC) Prediabetes Other abnormal glucose Morbid obesity (HCC) Morbid obesity Essential hypertension Unspecified essential hypertension Acquired hypothyroidism Unspecified hypothyroidism Lupus erythematosus, unspecified form Acquired hypothyroidism- Primary Unspecified hypothyroidism Metabolic syndrome Dysmetabolic Syndrome X Lupus erythematosus, unspecified form Essential hypertension Unspecified essential hypertension Morbid obesity (HCC) Morbid obesity Elevated liver enzymes Other nonspecific abnormal serum enzyme levels Groin pain, right documented [facility]* Diagnosis Metabolic syndrome- Primary Dysmetabolic Syndrome X Unspecified essential hypertension Lupus erythematosus, unspecified form Morbid obesity, unspecified obesity type (HCC) Prediabetes Other abnormal glucose Depressive disorder, not elsewhere classified- Primary Unspecified essential hypertension Morbid obesity, unspecified obesity type (HCC) Prediabetes Other abnormal glucose Morbid obesity (HCC) Morbid obesity Essential hypertension Unspecified essential hypertension Acquired hypothyroidism Unspecified hypothyroidism Lupus erythematosus, unspecified form Acquired hypothyroidism- Primary Unspecified hypothyroidism Metabolic syndrome Dysmetabolic Syndrome X Lupus erythematosus, unspecified form Essential hypertension Unspecified essential hypertension Morbid obesity (HCC) Morbid obesity Elevated liver enzymes Other nonspecific abnormal serum enzyme levels Lupus Systemic lupus erythematosus Pain in joint, multiple sites documented [facility]* Diagnosis Metabolic syndrome- Primary Dysmetabolic Syndrome X Unspecified essential hypertension Lupus erythematosus, unspecified form Morbid obesity, unspecified obesity type (HCC) Prediabetes Other abnormal glucose Depressive disorder, not elsewhere classified- Primary Unspecified essential hypertension Morbid obesity, unspecified obesity type (HCC) Prediabetes Other abnormal glucose Morbid obesity (HCC) Morbid obesity Essential hypertension Unspecified essential hypertension Acquired hypothyroidism Unspecified hypothyroidism Lupus erythematosus, unspecified form Acquired hypothyroidism- Primary Unspecified hypothyroidism Metabolic syndrome Dysmetabolic Syndrome X Lupus erythematosus, unspecified form Essential hypertension Unspecified essential hypertension Morbid obesity (HCC) Morbid obesity Elevated liver enzymes Other nonspecific abnormal serum enzyme levels Post-acute sequelae of COVID-19 (PASC) Activity intolerance Other general symptoms Fatigue, unspecified type WHITNEY (dyspnea on exertion) Other dyspnea and respiratory abnormality Palpitations Tachycardia Tachycardia, unspecified Headaches Stress reaction Unspecified acute reaction to stress Anosmia Disturbances of sensation of smell and taste Diarrhea, unspecified type documented in this encounter [facility] note* Diagnosis Metabolic syndrome- Primary Dysmetabolic Syndrome X Unspecified essential hypertension Lupus erythematosus, unspecified form Morbid obesity, unspecified obesity type (HCC) Prediabetes Other abnormal glucose Depressive disorder, not elsewhere classified- Primary Unspecified essential hypertension Morbid obesity, unspecified obesity type (HCC) Prediabetes Other abnormal glucose Morbid obesity (HCC) Morbid obesity Essential hypertension Unspecified essential hypertension Acquired hypothyroidism Unspecified hypothyroidism Lupus erythematosus, unspecified form Acquired hypothyroidism- Primary Unspecified hypothyroidism Metabolic syndrome Dysmetabolic Syndrome X Lupus erythematosus, unspecified form Essential hypertension Unspecified essential hypertension Morbid obesity (HCC) Morbid obesity Elevated liver enzymes Other nonspecific abnormal serum enzyme levels Inflammatory arthritis- Primary Unspecified inflammatory polyarthropathy Long-term use of Plaquenil Encounter for long-term (current) use of other medications Osteoarthritis of multiple joints, unspecified osteoarthritis type Pain in joint, multiple sites documented in this encounter [facility] note* Diagnosis Metabolic syndrome- Primary Dysmetabolic Syndrome X Unspecified essential hypertension Lupus erythematosus, unspecified form Morbid obesity, unspecified obesity type (HCC) Prediabetes Other abnormal glucose Depressive disorder, not elsewhere classified- Primary Unspecified essential hypertension Morbid obesity, unspecified obesity type (HCC) Prediabetes Other abnormal glucose Morbid obesity (HCC) Morbid obesity Essential hypertension Unspecified essential hypertension Acquired hypothyroidism Unspecified hypothyroidism Lupus erythematosus, unspecified form Acquired hypothyroidism- Primary Unspecified hypothyroidism Metabolic syndrome Dysmetabolic Syndrome X Lupus erythematosus, unspecified form Essential hypertension Unspecified essential hypertension Morbid obesity (HCC) Morbid obesity Elevated liver enzymes Other nonspecific abnormal serum enzyme levels Herpes zoster without complication- Primary Herpes zoster without mention of complication [facility]* Diagnosis Metabolic syndrome- Primary Dysmetabolic Syndrome X Unspecified essential hypertension Lupus erythematosus, unspecified form Morbid obesity, unspecified obesity type (HCC) Prediabetes Other abnormal glucose Depressive disorder, not elsewhere classified- Primary Unspecified essential hypertension Morbid obesity, unspecified obesity type (HCC) Prediabetes Other abnormal glucose Morbid obesity (HCC) Morbid obesity Essential hypertension Unspecified essential hypertension Acquired hypothyroidism Unspecified hypothyroidism Lupus erythematosus, unspecified form Acquired hypothyroidism- Primary Unspecified hypothyroidism Metabolic syndrome Dysmetabolic Syndrome X Lupus erythematosus, unspecified form Essential hypertension Unspecified essential hypertension Morbid obesity (HCC) Morbid obesity Elevated liver enzymes Other nonspecific abnormal serum enzyme levels Migraine without aura and without status migrainosus, not intractable Migraine without aura, without mention of intractable migraine without mention of status migrainosus [facility]* Diagnosis Metabolic syndrome- Primary Dysmetabolic Syndrome X Unspecified essential hypertension Lupus erythematosus, unspecified form Morbid obesity, unspecified obesity type (HCC) Prediabetes Other abnormal glucose Depressive disorder, not elsewhere classified- Primary Unspecified essential hypertension Morbid obesity, unspecified obesity type (HCC) Prediabetes Other abnormal glucose Morbid obesity (HCC) Morbid obesity Essential hypertension Unspecified essential hypertension Acquired hypothyroidism Unspecified hypothyroidism Lupus erythematosus, unspecified form Acquired hypothyroidism- Primary Unspecified hypothyroidism Metabolic syndrome Dysmetabolic Syndrome X Lupus erythematosus, unspecified form Essential hypertension Unspecified essential hypertension Morbid obesity (HCC) Morbid obesity Elevated liver enzymes Other nonspecific abnormal serum enzyme levels Herpes zoster without complication- Primary Herpes zoster without mention of complication [facility]* Diagnosis Metabolic syndrome- Primary Dysmetabolic Syndrome X Unspecified essential hypertension Lupus erythematosus, unspecified form Morbid obesity, unspecified obesity type (HCC) Prediabetes Other abnormal glucose Depressive disorder, not elsewhere classified- Primary Unspecified essential hypertension Morbid obesity, unspecified obesity type (HCC) Prediabetes Other abnormal glucose Morbid obesity (HCC) Morbid obesity Essential hypertension Unspecified essential hypertension Acquired hypothyroidism Unspecified hypothyroidism Lupus erythematosus, unspecified form Acquired hypothyroidism- Primary Unspecified hypothyroidism Metabolic syndrome Dysmetabolic Syndrome X Lupus erythematosus, unspecified form Essential hypertension Unspecified essential hypertension Morbid obesity (HCC) Morbid obesity Elevated liver enzymes Other nonspecific abnormal serum enzyme levels Vitamin D deficiency Unspecified vitamin D deficiency [facility]* Diagnosis Metabolic syndrome- Primary Dysmetabolic Syndrome X Unspecified essential hypertension Lupus erythematosus, unspecified form Morbid obesity, unspecified obesity type (HCC) Prediabetes Other abnormal glucose Depressive disorder, not elsewhere classified- Primary Unspecified essential hypertension Morbid obesity, unspecified obesity type (HCC) Prediabetes Other abnormal glucose Morbid obesity (HCC) Morbid obesity Essential hypertension Unspecified essential hypertension Acquired hypothyroidism Unspecified hypothyroidism Lupus erythematosus, unspecified form Acquired hypothyroidism- Primary Unspecified hypothyroidism Metabolic syndrome Dysmetabolic Syndrome X Lupus erythematosus, unspecified form Essential hypertension Unspecified essential hypertension Morbid obesity (HCC) Morbid obesity Elevated liver enzymes Other nonspecific abnormal serum enzyme levels Depression with anxiety Dysthymic disorder documented in this encounter [facility] note* Diagnosis Metabolic syndrome- Primary Dysmetabolic Syndrome X Unspecified essential hypertension Lupus erythematosus, unspecified form Morbid obesity, unspecified obesity type (HCC) Prediabetes Other abnormal glucose Depressive disorder, not elsewhere classified- Primary Unspecified essential hypertension Morbid obesity, unspecified obesity type (HCC) Prediabetes Other abnormal glucose Morbid obesity (HCC) Morbid obesity Essential hypertension Unspecified essential hypertension Acquired hypothyroidism Unspecified hypothyroidism Lupus erythematosus, unspecified form Acquired hypothyroidism- Primary Unspecified hypothyroidism Metabolic syndrome Dysmetabolic Syndrome X Lupus erythematosus, unspecified form Essential hypertension Unspecified essential hypertension Morbid obesity (HCC) Morbid obesity Elevated liver enzymes Other nonspecific abnormal serum enzyme levels Hyperlipidemia, unspecified hyperlipidemia type documented in this encounter [facility] note* Diagnosis Metabolic syndrome- Primary Dysmetabolic Syndrome X Unspecified essential hypertension Lupus erythematosus, unspecified form Morbid obesity, unspecified obesity type (HCC) Prediabetes Other abnormal glucose Depressive disorder, not elsewhere classified- Primary Unspecified essential hypertension Morbid obesity, unspecified obesity type (HCC) Prediabetes Other abnormal glucose Morbid obesity (HCC) Morbid obesity Essential hypertension Unspecified essential hypertension Acquired hypothyroidism Unspecified hypothyroidism Lupus erythematosus, unspecified form Acquired hypothyroidism- Primary Unspecified hypothyroidism Metabolic syndrome Dysmetabolic Syndrome X Lupus erythematosus, unspecified form Essential hypertension Unspecified essential hypertension Morbid obesity (HCC) Morbid obesity Elevated liver enzymes Other nonspecific abnormal serum enzyme levels Pain in joint, multiple sites documented in this encounter [facility] note* Diagnosis Metabolic syndrome- Primary Dysmetabolic Syndrome X Unspecified essential hypertension Lupus erythematosus, unspecified form Morbid obesity, unspecified obesity type (HCC) Prediabetes Other abnormal glucose Depressive disorder, not elsewhere classified- Primary Unspecified essential hypertension Morbid obesity, unspecified obesity type (HCC) Prediabetes Other abnormal glucose Morbid obesity (HCC) Morbid obesity Essential hypertension Unspecified essential hypertension Acquired hypothyroidism Unspecified hypothyroidism Lupus erythematosus, unspecified form Acquired hypothyroidism- Primary Unspecified hypothyroidism Metabolic syndrome Dysmetabolic Syndrome X Lupus erythematosus, unspecified form Essential hypertension Unspecified essential hypertension Morbid obesity (HCC) Morbid obesity Elevated liver enzymes Other nonspecific abnormal serum enzyme levels Essential hypertension Unspecified essential hypertension documented in this encounter [facility] note* Diagnosis Metabolic syndrome- Primary Dysmetabolic Syndrome X Unspecified essential hypertension Lupus erythematosus, unspecified form Morbid obesity, unspecified obesity type (HCC) Prediabetes Other abnormal glucose Depressive disorder, not elsewhere classified- Primary Unspecified essential hypertension Morbid obesity, unspecified obesity type (HCC) Prediabetes Other abnormal glucose Morbid obesity (HCC) Morbid obesity Essential hypertension Unspecified essential hypertension Acquired hypothyroidism Unspecified hypothyroidism Lupus erythematosus, unspecified form Acquired hypothyroidism- Primary Unspecified hypothyroidism Metabolic syndrome Dysmetabolic Syndrome X Lupus erythematosus, unspecified form Essential hypertension Unspecified essential hypertension Morbid obesity (HCC) Morbid obesity Elevated liver enzymes Other nonspecific abnormal serum enzyme levels Inflammatory arthritis- Primary Unspecified inflammatory polyarthropathy Long-term use of Plaquenil Encounter for long-term (current) use of other medications Encounter for long-term (current) use of medications Encounter for long-term (current) use of other medications Pain in joint, multiple sites Osteoarthritis of multiple joints, unspecified osteoarthritis type documented in this encounter [facility] note* Diagnosis Metabolic syndrome- Primary Dysmetabolic Syndrome X Unspecified essential hypertension Lupus erythematosus, unspecified form Morbid obesity, unspecified obesity type (HCC) Prediabetes Other abnormal glucose Depressive disorder, not elsewhere classified- Primary Unspecified essential hypertension Morbid obesity, unspecified obesity type (HCC) Prediabetes Other abnormal glucose Morbid obesity (HCC) Morbid obesity Essential hypertension Unspecified essential hypertension Acquired hypothyroidism Unspecified hypothyroidism Lupus erythematosus, unspecified form Acquired hypothyroidism- Primary Unspecified hypothyroidism Metabolic syndrome Dysmetabolic Syndrome X Lupus erythematosus, unspecified form Essential hypertension Unspecified essential hypertension Morbid obesity (HCC) Morbid obesity Elevated liver enzymes Other nonspecific abnormal serum enzyme levels Other fatigue- Primary Class 3 severe obesity with serious comorbidity and body mass index (BMI) of 40.0 to 44.9 in adult, unspecified obesity type (HCC) Hypothyroidism, unspecified type Essential hypertension Unspecified essential hypertension Prediabetes Other abnormal glucose Obstructive sleep apnea syndrome Obstructive sleep apnea (adult) (pediatric) Vitamin D deficiency Unspecified vitamin D deficiency [facility] Diagnosis Metabolic syndrome- Primary Dysmetabolic Syndrome X Unspecified essential hypertension Lupus erythematosus, unspecified form Morbid obesity, unspecified obesity type (HCC) Prediabetes Other abnormal glucose Depressive disorder, not elsewhere classified- Primary Unspecified essential hypertension Morbid obesity, unspecified obesity type (HCC) Prediabetes Other abnormal glucose Morbid obesity (HCC) Morbid obesity Essential hypertension Unspecified essential hypertension Acquired hypothyroidism Unspecified hypothyroidism Lupus erythematosus, unspecified form Acquired hypothyroidism- Primary Unspecified hypothyroidism Metabolic syndrome Dysmetabolic Syndrome X Lupus erythematosus, unspecified form Essential hypertension Unspecified essential hypertension Morbid obesity (HCC) Morbid obesity Elevated liver enzymes Other nonspecific abnormal serum enzyme levels Migraine without aura and without status migrainosus, not intractable Migraine without aura, without mention of intractable migraine without mention of status migrainosus [facility] Diagnosis Metabolic syndrome- Primary Dysmetabolic Syndrome X Unspecified essential hypertension Lupus erythematosus, unspecified form Morbid obesity, unspecified obesity type (HCC) Prediabetes Other abnormal glucose Depressive disorder, not elsewhere classified- Primary Unspecified essential hypertension Morbid obesity, unspecified obesity type (HCC) Prediabetes Other abnormal glucose Morbid obesity (HCC) Morbid obesity Essential hypertension Unspecified essential hypertension Acquired hypothyroidism Unspecified hypothyroidism Lupus erythematosus, unspecified form Acquired hypothyroidism- Primary Unspecified hypothyroidism Metabolic syndrome Dysmetabolic Syndrome X Lupus erythematosus, unspecified form Essential hypertension Unspecified essential hypertension Morbid obesity (HCC) Morbid obesity Elevated liver enzymes Other nonspecific abnormal serum enzyme levels Class 3 severe obesity with serious comorbidity and body mass index (BMI) of 40.0 to 44.9 in adult, unspecified obesity type (HCC)- Primary Depression with anxiety Dysthymic disorder [facility]* Diagnosis Metabolic syndrome- Primary Dysmetabolic Syndrome X Unspecified essential hypertension Lupus erythematosus, unspecified form Morbid obesity, unspecified obesity type (HCC) Prediabetes Other abnormal glucose Depressive disorder, not elsewhere classified- Primary Unspecified essential hypertension Morbid obesity, unspecified obesity type (HCC) Prediabetes Other abnormal glucose Morbid obesity (HCC) Morbid obesity Essential hypertension Unspecified essential hypertension Acquired hypothyroidism Unspecified hypothyroidism Lupus erythematosus, unspecified form Acquired hypothyroidism- Primary Unspecified hypothyroidism Metabolic syndrome Dysmetabolic Syndrome X Lupus erythematosus, unspecified form Essential hypertension Unspecified essential hypertension Morbid obesity (HCC) Morbid obesity Elevated liver enzymes Other nonspecific abnormal serum enzyme levels Hyperlipidemia Other and unspecified hyperlipidemia [facility]* Diagnosis Metabolic syndrome- Primary Dysmetabolic Syndrome X Unspecified essential hypertension Lupus erythematosus, unspecified form Morbid obesity, unspecified obesity type (HCC) Prediabetes Other abnormal glucose Depressive disorder, not elsewhere classified- Primary Unspecified essential hypertension Morbid obesity, unspecified obesity type (HCC) Prediabetes Other abnormal glucose Morbid obesity (HCC) Morbid obesity Essential hypertension Unspecified essential hypertension Acquired hypothyroidism Unspecified hypothyroidism Lupus erythematosus, unspecified form Acquired hypothyroidism- Primary Unspecified hypothyroidism Metabolic syndrome Dysmetabolic Syndrome X Lupus erythematosus, unspecified form Essential hypertension Unspecified essential hypertension Morbid obesity (HCC) Morbid obesity Elevated liver enzymes Other nonspecific abnormal serum enzyme levels Cat bite, subsequent encounter- Primary Cellulitis of right hand Cellulitis and abscess of hand, except fingers and thumb documented in this encounter [facility] note* Diagnosis Metabolic syndrome- Primary Dysmetabolic Syndrome X Unspecified essential hypertension Lupus erythematosus, unspecified form Morbid obesity, unspecified obesity type (HCC) Prediabetes Other abnormal glucose Depressive disorder, not elsewhere classified- Primary Unspecified essential hypertension Morbid obesity, unspecified obesity type (HCC) Prediabetes Other abnormal glucose Morbid obesity (HCC) Morbid obesity Essential hypertension Unspecified essential hypertension Acquired hypothyroidism Unspecified hypothyroidism Lupus erythematosus, unspecified form Acquired hypothyroidism- Primary Unspecified hypothyroidism Metabolic syndrome Dysmetabolic Syndrome X Lupus erythematosus, unspecified form Essential hypertension Unspecified essential hypertension Morbid obesity (HCC) Morbid obesity Elevated liver enzymes Other nonspecific abnormal serum enzyme levels Cellulitis of right hand- Primary Cellulitis and abscess of hand, except fingers and thumb Cat bite, subsequent encounter Other fatigue [facility]* Diagnosis Metabolic syndrome- Primary Dysmetabolic Syndrome X Unspecified essential hypertension Lupus erythematosus, unspecified form Morbid obesity, unspecified obesity type (HCC) Prediabetes Other abnormal glucose Depressive disorder, not elsewhere classified- Primary Unspecified essential hypertension Morbid obesity, unspecified obesity type (HCC) Prediabetes Other abnormal glucose Morbid obesity (HCC) Morbid obesity Essential hypertension Unspecified essential hypertension Acquired hypothyroidism Unspecified hypothyroidism Lupus erythematosus, unspecified form Acquired hypothyroidism- Primary Unspecified hypothyroidism Metabolic syndrome Dysmetabolic Syndrome X Lupus erythematosus, unspecified form Essential hypertension Unspecified essential hypertension Morbid obesity (HCC) Morbid obesity Elevated liver enzymes Other nonspecific abnormal serum enzyme levels Cellulitis of right hand- Primary Cellulitis and abscess of hand, except fingers and thumb Cat bite, subsequent encounter Class 3 severe obesity with serious comorbidity and body mass index (BMI) of 40.0 to 44.9 in adult, unspecified obesity type [facility]* Diagnosis Metabolic syndrome- Primary Dysmetabolic Syndrome X Unspecified essential hypertension Lupus erythematosus, unspecified form Morbid obesity, unspecified obesity type (HCC) Prediabetes Other abnormal glucose Depressive disorder, not elsewhere classified- Primary Unspecified essential hypertension Morbid obesity, unspecified obesity type (HCC) Prediabetes Other abnormal glucose Morbid obesity (HCC) Morbid obesity Essential hypertension Unspecified essential hypertension Acquired hypothyroidism Unspecified hypothyroidism Lupus erythematosus, unspecified form Acquired hypothyroidism- Primary Unspecified hypothyroidism Metabolic syndrome Dysmetabolic Syndrome X Lupus erythematosus, unspecified form Essential hypertension Unspecified essential hypertension Morbid obesity (HCC) Morbid obesity Elevated liver enzymes Other nonspecific abnormal serum enzyme levels Hyperlipidemia, unspecified hyperlipidemia type documented [facility]* Diagnosis Metabolic syndrome- Primary Dysmetabolic Syndrome X Unspecified essential hypertension Lupus erythematosus, unspecified form Morbid obesity, unspecified obesity type (HCC) Prediabetes Other abnormal glucose Depressive disorder, not elsewhere classified- Primary Unspecified essential hypertension Morbid obesity, unspecified obesity type (HCC) Prediabetes Other abnormal glucose Morbid obesity (HCC) Morbid obesity Essential hypertension Unspecified essential hypertension Acquired hypothyroidism Unspecified hypothyroidism Lupus erythematosus, unspecified form Acquired hypothyroidism- Primary Unspecified hypothyroidism Metabolic syndrome Dysmetabolic Syndrome X Lupus erythematosus, unspecified form Essential hypertension Unspecified essential hypertension Morbid obesity (HCC) Morbid obesity Elevated liver enzymes Other nonspecific abnormal serum enzyme levels Primary hypertension- Primary Unspecified essential hypertension Pure hypercholesterolemia [facility]* Diagnosis Metabolic syndrome- Primary Dysmetabolic Syndrome X Unspecified essential hypertension Lupus erythematosus, unspecified form Morbid obesity, unspecified obesity type (HCC) Prediabetes Other abnormal glucose Depressive disorder, not elsewhere classified- Primary Unspecified essential hypertension Morbid obesity, unspecified obesity type (HCC) Prediabetes Other abnormal glucose Morbid obesity (HCC) Morbid obesity Essential hypertension Unspecified essential hypertension Acquired hypothyroidism Unspecified hypothyroidism Lupus erythematosus, unspecified form Acquired hypothyroidism- Primary Unspecified hypothyroidism Metabolic syndrome Dysmetabolic Syndrome X Lupus erythematosus, unspecified form Essential hypertension Unspecified essential hypertension Morbid obesity (HCC) Morbid obesity Elevated liver enzymes Other nonspecific abnormal serum enzyme levels Inflammatory arthritis- Primary Unspecified inflammatory polyarthropathy Long-term use of Plaquenil Encounter for long-term (current) use of other medications Encounter for long-term (current) use of medications Encounter for long-term (current) use of other medications Pain in joint, multiple sites Osteoarthritis of multiple joints, unspecified osteoarthritis type [facility] Diagnosis Metabolic syndrome- Primary Dysmetabolic Syndrome X Unspecified essential hypertension Lupus erythematosus, unspecified form Morbid obesity, unspecified obesity type (HCC) Prediabetes Other abnormal glucose Depressive disorder, not elsewhere classified- Primary Unspecified essential hypertension Morbid obesity, unspecified obesity type (HCC) Prediabetes Other abnormal glucose Morbid obesity (HCC) Morbid obesity Essential hypertension Unspecified essential hypertension Acquired hypothyroidism Unspecified hypothyroidism Lupus erythematosus, unspecified form Acquired hypothyroidism- Primary Unspecified hypothyroidism Metabolic syndrome Dysmetabolic Syndrome X Lupus erythematosus, unspecified form Essential hypertension Unspecified essential hypertension Morbid obesity (HCC) Morbid obesity Elevated liver enzymes Other nonspecific abnormal serum enzyme levels Insomnia, unspecified type- Primary Class 3 severe obesity with serious comorbidity and body mass index (BMI) of 40.0 to 44.9 in adult, unspecified obesity type (HCC) Weight loss counseling, encounter for Dietary surveillance and counseling [facility] Diagnosis Metabolic syndrome- Primary Dysmetabolic Syndrome X Unspecified essential hypertension Lupus erythematosus, unspecified form Morbid obesity, unspecified obesity type (HCC) Prediabetes Other abnormal glucose Depressive disorder, not elsewhere classified- Primary Unspecified essential hypertension Morbid obesity, unspecified obesity type (HCC) Prediabetes Other abnormal glucose Morbid obesity (HCC) Morbid obesity Essential hypertension Unspecified essential hypertension Acquired hypothyroidism Unspecified hypothyroidism Lupus erythematosus, unspecified form Acquired hypothyroidism- Primary Unspecified hypothyroidism Metabolic syndrome Dysmetabolic Syndrome X Lupus erythematosus, unspecified form Essential hypertension Unspecified essential hypertension Morbid obesity (HCC) Morbid obesity Elevated liver enzymes Other nonspecific abnormal serum enzyme levels Class 3 severe obesity with serious comorbidity and body mass index (BMI) of 40.0 to 44.9 in adult, unspecified obesity type (HCC) Essential (primary) hypertension Unspecified essential hypertension documented in this encounter [facility] note* Diagnosis Metabolic syndrome- Primary Dysmetabolic Syndrome X Unspecified essential hypertension Lupus erythematosus, unspecified form Morbid obesity, unspecified obesity type (HCC) Prediabetes Other abnormal glucose Depressive disorder, not elsewhere classified- Primary Unspecified essential hypertension Morbid obesity, unspecified obesity type (HCC) Prediabetes Other abnormal glucose Morbid obesity (HCC) Morbid obesity Essential hypertension Unspecified essential hypertension Acquired hypothyroidism Unspecified hypothyroidism Lupus erythematosus, unspecified form Acquired hypothyroidism- Primary Unspecified hypothyroidism Metabolic syndrome Dysmetabolic Syndrome X Lupus erythematosus, unspecified form Essential hypertension Unspecified essential hypertension Morbid obesity (HCC) Morbid obesity Elevated liver enzymes Other nonspecific abnormal serum enzyme levels Encounter for screening mammogram for breast cancer documented in this encounter [facility] note* Diagnosis Metabolic syndrome- Primary Dysmetabolic Syndrome X Unspecified essential hypertension Lupus erythematosus, unspecified form Morbid obesity, unspecified obesity type (HCC) Prediabetes Other abnormal glucose Depressive disorder, not elsewhere classified- Primary Unspecified essential hypertension Morbid obesity, unspecified obesity type (HCC) Prediabetes Other abnormal glucose Morbid obesity (HCC) Morbid obesity Essential hypertension Unspecified essential hypertension Acquired hypothyroidism Unspecified hypothyroidism Lupus erythematosus, unspecified form Acquired hypothyroidism- Primary Unspecified hypothyroidism Metabolic syndrome Dysmetabolic Syndrome X Lupus erythematosus, unspecified form Essential hypertension Unspecified essential hypertension Morbid obesity (HCC) Morbid obesity Elevated liver enzymes Other nonspecific abnormal serum enzyme levels Metabolic syndrome Dysmetabolic Syndrome X [facility] Additional Instructions Clean area once daily with soap and water. Take all of the antibiotics as prescribed. If you develop worsening redness, swelling, pus, fever please come back for reevaluation.[facility] Work Phone: Reason for referral (narrative)* Diagnostic Procedure Only (Routine) - Closed Specialty Diagnoses / Procedures Referred By Contac t Referred To Contact US IMAGING Diagnoses Lupus (HCC) Procedures US HAND/WRIST SYNOVIAL SCREEN LT US COMPL JOINT R-T W/[place] [address] [place] [address] Us Imaging Referral ID Status Reason Start Date Expiration Date V isits Requested Visits Authorized [id number] Closed Auto-Generate d Referral 12/23/2021 01/22/2023 1 1 * Diagnostic Procedure Only (Routine) - Closed Specialty Diagnoses / Procedures Referred By Contac t Referred To Contact US IMAGING Diagnoses Lupus (HCC) Procedures US HAND/WRIST SYNOVIAL SCREEN RT US COMPL JOINT R-T W/[place] [id number] [place] [id number] Us Imaging Referral ID Status Reason Start Date Expiration Date V isits Requested Visits Authorized [id number] Closed Auto-Generate d Referral 12/23/2021 01/22/2023 1 1 [facility] for referral (narrative)* Outpatient Procedure (Urgent) - Pending Review Specialty Diagnoses / Procedures Referred By Contac t Referred To Contact [facility] Diagnoses Groin pain, right Procedures US LEG VEIN DVT UNL VAS LAB DUP-SCAN XTR VEINS UNILATERAL/LIMITED STUDY Anny Iqbal PA-C [address] [place] [address] [facility] [address] [place] [address] Referral ID Status Reason Start Date Expiration Date Visits Requested Visits Authorized [id number] Pending Review Auto-Generat ed Referral 04/02/2022 04/02/2023 1 1 * Diagnostic Procedure Only (Urgent) - Closed Specialty Diagnoses / Procedures Referred By Contac t Referred To Contact XR IMAGING Diagnoses Groin pain, right Procedures XR HIP GENERAL 3V PELV/AP/LAT RIGHT RADEX HIP UNILATERAL WITH PELVIS 2-3 VIEWS Anny Iqbal PA-C [address] [place] [address] [facility] Referral ID Status Reason Start Date Expiration Date V isits Requested Visits Authorized [id number] Closed Auto-Generate d Referral 04/02/2022 05/02/2023 1 1 [facility] for referral (narrative)* Outpatient Procedure (Routine) - Closed Specialty Diagnoses / Procedures Referred By Contac t Referred To [facility] Diagnoses Essential hypertension Palpitations Hyperlipidemia, unspecified hyperlipidemia type Procedures ECG COMPLETE ECG ROUTINE ECG W/LEAST 12 LDS W/I&R Prachi Cuadra APRN.CUSTOM APPLICATOR [address] [place] [address] [facility] [address] [place] [address] Referral ID Status Reason Start Date Expiration Date V isits Requested Visits Authorized [id number] Closed Auto-Generate d Referral 07/14/2022 07/14/2023 1 1 [facility] for referral (narrative)* Diagnostic Procedure Only (Routine) - Pending Review Specialty Diagnoses / Procedures Referred By Contac t Referred To Contact BR IMAG[facility] Diagnoses Breast cancer screening by mammogram Procedures JAZMYNE SCREENING W FACUNDO SCREENING DIGITAL BREAST TOMOSYNTHESIS BI SCREENING MAMMOGRAPHY BI 2-VIEW BREAST INC David Chavis MD [address] [place] [address] [facility] [address] [place] [address] Referral ID Status Reason Start Date Expiration Date Visits Requested Visits Authorized [id number] Pending Review Auto-Generat ed Referral 08/25/2022 09/24/2023 1 1 [facility] for referral (narrative)* Diagnostic Procedure Only (Routine) - Closed Specialty Diagnoses / Procedures Referred By Contac t Referred To Contact XR IMAGING Diagnoses Bilateral foot pain Procedures XR FOOT GENERAL 3V AP/LAT/OBL BILATERAL RADEX FOOT COMPLETE MINIMUM 3 VIEWS [employer], Rivas [address] [place] [address] [place] [address] Referral ID Status Reason Start Date Expiration Date V isits Requested Visits Authorized [id number] Closed Auto-Generate d Referral 11/06/2022 12/06/2023 1 1 [facility] for referral (narrative)* Outpatient Procedure (Routine) - Pending Review Specialty Diagnoses / Procedures Referred By Contac t Referred To Contact [facility] Diagnoses Essential hypertension Hyperlipidemia, unspecified hyperlipidemia type Procedures ECG COMPLETE ECG ROUTINE ECG W/LEAST 12 LDS W/I&R Felix Ornelas MD [address] [place] [address] [facility] [address] [place] [address] Referral ID Status Reason Start Date Expiration Date Visits Requested Visits Authorized [id number] Pending Review Auto-Generat ed Referral 11/08/2023 11/07/2024 1 1 [facility] for referral (narrative)* Diagnostic Procedure Only (Urgent) - Closed Specialty Diagnoses / Procedures Referred By Contac t Referred To Contact XR IMAGING Diagnoses Groin pain, right Procedures XR HIP GENERAL 3V PELV/AP/LAT RIGHT RADEX HIP UNILATERAL WITH PELVIS 2-3 VIEWS Anny Iqbal PA-C [address] [place] [address] [place] [address] Referral ID Status Reason Start Date Expiration Date V isits Requested Visits Authorized [id number] Closed Auto-Generate d Referral 04/02/2022 05/02/2023 1 1 [facility] for referral (narrative)* Diagnostic Procedure Only (Routine) - Closed Specialty Diagnoses / Procedures Referred By Contac t Referred To Contact XR IMAGING Diagnoses Lupus Procedures XR LUMBAR GENERAL 3V AP/LAT/L5-S1 RADEX SPINE LUMBOSACRAL 2/[place] [address] [place] [phone] [place] [address] Referral ID Status Reason Start Date Expiration Date V isits Requested Visits Authorized [id number] Closed Auto-Generate d Referral 12/23/2021 01/22/2023 1 1 * Diagnostic Procedure Only (Routine) - Closed Specialty Diagnoses / Procedures Referred By Contac t Referred To Contact XR IMAGING Diagnoses Lupus Pain in joint, multiple sites Procedures XR HAND GENERAL 3V PA/LAT/OBL BILATERAL RADEX HAND MINIMUM [address] [place] [address] [place] [phone] [place] [address] Referral ID Status Reason Start Date Expiration Date V isits Requested Visits Authorized [id number] Closed Auto-Generate d Referral 12/23/2021 01/22/2023 1 1 [facility] for referral (narrative)* Diagnostic Procedure Only (Routine) - Authorized Specialty Diagnoses / Procedures Referred By Contac t Referred To Contact US IMAGING Diagnoses Pain in joint, multiple sites Procedures US HAND/WRIST SYNOVIAL SCREEN LEFT US COMPL JOINT R-T W/[place] [address] [id number] [place] [address] Referral ID Status Reason Start Date Expiration Date Visits Requested Visits Authorized [id number] Authorized Auto-Generat ed Referral 04/26/2025 1 1 * Diagnostic Procedure Only (Routine) - Authorized Specialty Diagnoses / Procedures Referred By Contac t Referred To Contact US IMAGING Diagnoses Pain in joint, multiple sites Procedures US HAND/WRIST SYNOVIAL SCREEN RIGHT US COMPL JOINT R-T W/[place] [address] [id number] [place] [address] Referral ID Status Reason Start Date Expiration Date Visits Requested Visits Authorized [id number] Authorized Auto-Generat ed Referral 04/26/2025 1 1 [facility] for referral (narrative)* Diagnostic Procedure Only (Routine) - Closed Specialty Diagnoses / Procedures Referred By Yuni t Referred To Contact US IMAGING Diagnoses Pain in joint, multiple sites Procedures US HAND/WRIST SYNOVIAL SCREEN LEFT US COMPL JOINT R-T W/IMAGE DOCUMENTATION Darrell Jack [place] [id number] [place], [place] [id number] [place] [address] Referral ID Status Reason Start Date Expiration Date V isits Requested Visits Authorized [id number] Closed Auto-Generate d Referral 03/27/2024 04/26/2025 1 1 * Diagnostic Procedure Only (Routine) - Closed Specialty Diagnoses / Procedures Referred By Yuni willson Referred To Contact US IMAGING Diagnoses Pain in joint, multiple sites Procedures US HAND/WRIST SYNOVIAL SCREEN RIGHT US COMPL JOINT R-T W/[place] [address] [phone] [place] [address] Referral ID Status Reason Start Date Expiration Date V isits Requested Visits Authorized [id number] Closed Auto-Generate d Referral 03/27/2024 04/26/2025 1 1 [facility] for referral (narrative)No reason for referral information availableWAdams [facility] Work Phone: Reason for visit Narrative* Diagnostic Procedure Only (Routine) - Closed Specialty Diagnoses / Procedures Referred By Yuni t Referred To Contact US IMAGING Diagnoses Lupus (HCC) Procedures US HAND/WRIST SYNOVIAL SCREEN LT US COMPL JOINT R-T W/[place] [address] [phone] [facility] Referral ID Status Reason Start Date Expiration Date V isits Requested Visits Authorized [id number] Closed Auto-Generate d Referral 12/23/2021 01/22/2023 1 1 [facility] for visit Narrative* Diagnostic Procedure Only (Routine) - Closed Specialty Diagnoses / Procedures Referred By Contac t Referred To Contact XR IMAGING Diagnoses Bilateral foot pain Procedures XR FOOT GENERAL 3V AP/LAT/OBL BILATERAL RADEX FOOT COMPLETE MINIMUM 3 VIEWS Rivas Beck [address] [place] [address] [place] [address] Referral ID Status Reason Start Date Expiration Date V isits Requested Visits Authorized [id number] Closed Auto-Generate d Referral 11/06/2022 12/06/2023 1 1 [facility] for visit Narrative* Diagnostic Procedure Only (Urgent) - Closed Specialty Diagnoses / Procedures Referred By Contac t Referred To Contact XR IMAGING Diagnoses Groin pain, right Procedures XR HIP GENERAL 3V PELV/AP/LAT RIGHT RADEX HIP UNILATERAL WITH PELVIS 2-3 VIEWS Anny Iqbal, PA-C [address] [place] [address] [place] [address] Referral ID Status Reason Start Date Expiration Date V isits Requested Visits Authorized [id number] Closed Auto-Generate d Referral 04/02/2022 05/02/2023 1 1 [facility] for visit Narrative* Diagnostic Procedure Only (Routine) - Closed Specialty Diagnoses / Procedures Referred By Contac t Referred To Contact US IMAGING Diagnoses Pain in joint, multiple sites Procedures US HAND/WRIST SYNOVIAL SCREEN LEFT US COMPL JOINT R-T W/[place] [address] [place] [address] [place] [address] Referral ID Status Reason Start Date Expiration Date V isits Requested Visits Authorized [id number] Closed Auto-Generate d Referral 03/27/2024 04/26/2025 1 1 [facility] Summary Purpose Family History No Family History Records Found Relationship Condition Age at Onset Recorded Date/T rolly sister Malignant neoplasm of breast Unknown Advance Directives No Advanced Directives Records FoundDocuments on File Type Date Recorded 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 No January 26, 2021 3:18pm Do you have a Healthcare Power of Machine Stoppage Frequency Checker? No October 13, 2024 9:03pm Advance Directive Response Recorded Date/ Time Do you have a Healthcare Power of Machine Stoppage Frequency Checker? No October 13, 2024 9:03pm Chief Complaint and Reason for Visit Chief Complaint Admit Date Needs new pap machine November 14, 2024 8: 47am CHATO January 30, 2025 9:00am Reason for Visit Admit Date CHATO (obstructive sleep apnea) November 14, 2024 8:47am Chief Complaint SMOKER >30PK YRS Chief Complaint Nicotine dependence, cigarettes, in remission Chief Complaint Admit Date 5 m fu June 21, 2024 9 :20am BITE October 13, 2024 8:51p m Reason for Visit Admit Date Obesity June 21, 2024 9 :20am CHATO (obstructive sleep apnea) June 212024 9:20am Smoking greater than 30 pack years Janua 2024 9:20am Chief Complaint Admit Date BITE October 13, 2024 8:51p m Needs new pap machine November 14, 2024 8: 47am Chief Complaint Admit Date BITE October 13, 2024 8:51p m Needs new pap machine November 14, 2024 8: 47am CHATO January 30, 2025 9:00am Health Concerns Infection Onset Date Last Indicated Resolved Time COVID-19 Rule-Out 05/01/2022 05/01/2022 Infection Onset Date Last Indicated Resolved Time COVID-19 Rule-Out 05/01/2022 05/01/2022 05/02/2022 6:20 AM EST Infection Onset Date Last Indicated Resolved Time COVID-19 Rule-Out 06/08/2022 06/08/2022 06/09/2022 4:49 AM EST Reason for Referral Specialty Diagnoses / Procedures Referred By Contac t Referred To Contact Rajiv Isaac DO [address] [place] [address] Referral ID Status Reason Start Date Expiration Date Visits Re quested Visits Authorized [id number] Closed 1 1 Specialty Diagnoses / Procedures Referred By Contac t Referred To Contact Diagnoses Migraine without aura and without status migrainosus, not intractable Procedures PROVIDER ORDERED FOLLOW UP OFFICE/OUTPATIENT NEW HIGH MDM 60 MINUTES Keiko Maloney APRN.CUSTOM APPLICATOR [address] [place] [address] Referral ID Status Reason Start Date Expiration Date Visits Requested Visits Authorized [id number] Authorized PCP Requested Referral 09/14/2024 1 1 Specialty Diagnoses / Procedures Referred By Contac t Referred To Contact Diagnoses Migraine without aura and without status migrainosus, not intractable Procedures PROVIDER ORDERED FOLLOW UP OFFICE/OUTPATIENT NEW HIGH MDM 60 MINUTES Eddie Wilson, HIGHWAY PAINTER.CUSTOM APPLICATOR [address] [place] [address] Referral ID Status Reason Start Date Expiration Date Visits Requested Visits Authorized [id number] Authorized PCP Requested Referral 07/05/2024 04/04/2025 1 1 Referral ID Status Reason Start Date Expiration Date Visits Requested Visits Authorized [id number] Authorized PCP Requested Referral 01/02/2025 07/05/2025 1 1 Additional Source Comments INFORMATION SOURCE (unrecogn ized section and content) DATE CREATED AUTHOR 12/04/2020 [facility]) DATE CREATED AUTHOR AUTHOR'S ORGANIZ ATION 05/02/2024 [facility] DATE CREATED AUTHOR AUTHOR'S ORGANIZ ATION 03/29/2025 [facility] DATE CREATED AUTHOR AUTHOR'S ORGANIZ ATION 04/08/2025 [facility] Source Comments (unrecognize d section and content) In the event this informatio n is protected by the Federal Confidentiality of Alcohol and Drug Abuse Patient Records regulations: The Federal rules restrict any use of the information to criminally investigate or prosecute any alcohol or drug abuse patient.[facility] CompanyIn the event this information is protected by the Federal Confidentiality of Alcohol and Drug Abuse Patient Records regulations: The Federal rules restrict any use of the information to criminally investigate or prosecute any alcohol or drug abuse patient.[facility] CompanyIn the event this information is protected by the Federal Confidentiality of Alcohol and Drug Abuse Patient Records regulations: The Federal rules restrict any use of the information to criminally investigate or prosecute any alcohol or drug abuse patient.[facility] CompanyIn the event this information is protected by the Federal Confidentiality of Alcohol and Drug Abuse Patient Records regulations: The Federal rules restrict any use of the information to criminally investigate or prosecute any alcohol or drug abuse patient.[facility]In the event this information is protected by the Federal Confidentiality of Alcohol and Drug Abuse Patient Records regulations: The Federal rules restrict any use of the information to criminally investigate or prosecute any alcohol or drug abuse patient.[facility] CompanyIn the event this information is protected by the Federal Confidentiality of Alcohol and Drug Abuse Patient Records regulations: The Federal rules restrict any use of the information to criminally investigate or prosecute any alcohol or drug abuse patient.[facility] CompanyIn the event this information is protected by the Federal Confidentiality of Alcohol and Drug Abuse Patient Records regulations: The Federal rules restrict any use of the information to criminally investigate or prosecute any alcohol or drug abuse patient.[facility] CompanyIn the event this information is protected by the Federal Confidentiality of Alcohol and Drug Abuse Patient Records regulations: The Federal rules restrict any use of the information to criminally investigate or prosecute any alcohol or drug abuse patient.[facility] CompanyIn the event this information is protected by the Federal Confidentiality of Alcohol and Drug Abuse Patient Records regulations: The Federal rules restrict any use of the information to criminally investigate or prosecute any alcohol or drug abuse patient.[facility] CompanyIn the event this information is protected by the Federal Confidentiality of Alcohol and Drug Abuse Patient Records regulations: The Federal rules restrict any use of the information to criminally investigate or prosecute any alcohol or drug abuse patient.[facility] CompanyIn the event this information is protected by the Federal Confidentiality of Alcohol and Drug Abuse Patient Records regulations: The Federal rules restrict any use of the information to criminally investigate or prosecute any alcohol or drug abuse patient.[facility] CompanyIn the event this information is protected by the Federal Confidentiality of Alcohol and Drug Abuse Patient Records regulations: The Federal rules restrict any use of the information to criminally investigate or prosecute any alcohol or drug abuse patient.[facility] CompanyIn the event this information is protected by the Federal Confidentiality of Alcohol and Drug Abuse Patient Records regulations: The Federal rules restrict any use of the information to criminally investigate or prosecute any alcohol or drug abuse patient.[facility] CompanyIn the event this information is protected by the Federal Confidentiality of Alcohol and Drug Abuse Patient Records regulations: The Federal rules restrict any use of the information to criminally investigate or prosecute any alcohol or drug abuse patient.[facility] CompanyIn the event this information is protected by the Federal Confidentiality of Alcohol and Drug Abuse Patient Records regulations: The Federal rules restrict any use of the information to criminally investigate or prosecute any alcohol or drug abuse patient.[facility] CompanyIn the event this information is protected by the Federal Confidentiality of Alcohol and Drug Abuse Patient Records regulations: The Federal rules restrict any use of the information to criminally investigate or prosecute any alcohol or drug abuse patient.[facility] CompanyIn the event this information is protected by the Federal Confidentiality of Alcohol and Drug Abuse Patient Records regulations: The Federal rules restrict any use of the information to criminally investigate or prosecute any alcohol or drug abuse patient.[facility] CompanyIn the event this information is protected by the Federal Confidentiality of Alcohol and Drug Abuse Patient Records regulations: The Federal rules restrict any use of the information to criminally investigate or prosecute any alcohol or drug abuse patient.[facility] CompanyIn the event this information is protected by the Federal Confidentiality of Alcohol and Drug Abuse Patient Records regulations: The Federal rules restrict any use of the information to criminally investigate or prosecute any alcohol or drug abuse patient.[facility] CompanyIn the event this information is protected by the Federal Confidentiality of Alcohol and Drug Abuse Patient Records regulations: The Federal rules restrict any use of the information to criminally investigate or prosecute any alcohol or drug abuse patient.[facility] CompanyIn the event this information is protected by the Federal Confidentiality of Alcohol and Drug Abuse Patient Records regulations: The Federal rules restrict any use of the information to criminally investigate or prosecute any alcohol or drug abuse patient.[facility] CompanyIn the event this information is protected by the Federal Confidentiality of Alcohol and Drug Abuse Patient Records regulations: The Federal rules restrict any use of the information to criminally investigate or prosecute any alcohol or drug abuse patient.[facility] CompanyIn the event this information is protected by the Federal Confidentiality of Alcohol and Drug Abuse Patient Records regulations: The Federal rules restrict any use of the information to criminally investigate or prosecute any alcohol or drug abuse patient.[facility] CompanyIn the event this information is protected by the Federal Confidentiality of Alcohol and Drug Abuse Patient Records regulations: The Federal rules restrict any use of the information to criminally investigate or prosecute any alcohol or drug abuse patient.[facility] CompanyIn the event this information is protected by the Federal Confidentiality of Alcohol and Drug Abuse Patient Records regulations: The Federal rules restrict any use of the information to criminally investigate or prosecute any alcohol or drug abuse patient.[facility] CompanyIn the event this information is protected by the Federal Confidentiality of Alcohol and Drug Abuse Patient Records regulations: The Federal rules restrict any use of the information to criminally investigate or prosecute any alcohol or drug abuse patient.[facility] CompanyIn the event this information is protected by the Federal Confidentiality of Alcohol and Drug Abuse Patient Records regulations: The Federal rules restrict any use of the information to criminally investigate or prosecute any alcohol or drug abuse patient.[facility] CompanyIn the event this information is protected by the Federal Confidentiality of Alcohol and Drug Abuse Patient Records regulations: The Federal rules restrict any use of the information to criminally investigate or prosecute any alcohol or drug abuse patient.[facility] CompanyIn the event this information is protected by the Federal Confidentiality of Alcohol and Drug Abuse Patient Records regulations: The Federal rules restrict any use of the information to criminally investigate or prosecute any alcohol or drug abuse patient.[facility] CompanyIn the event this information is protected by the Federal Confidentiality of Alcohol and Drug Abuse Patient Records regulations: The Federal rules restrict any use of the information to criminally investigate or prosecute any alcohol or drug abuse patient.[facility] CompanyIn the event this information is protected by the Federal Confidentiality of Alcohol and Drug Abuse Patient Records regulations: The Federal rules restrict any use of the information to criminally investigate or prosecute any alcohol or drug abuse patient.[facility] CompanyIn the event this information is protected by the Federal Confidentiality of Alcohol and Drug Abuse Patient Records regulations: The Federal rules restrict any use of the information to criminally investigate or prosecute any alcohol or drug abuse patient.[facility] CompanyIn the event this information is protected by the Federal Confidentiality of Alcohol and Drug Abuse Patient Records regulations: The Federal rules restrict any use of the information to criminally investigate or prosecute any alcohol or drug abuse patient.[facility] CompanyIn the event this information is protected by the Federal Confidentiality of Alcohol and Drug Abuse Patient Records regulations: The Federal rules restrict any use of the information to criminally investigate or prosecute any alcohol or drug abuse patient.[facility] CompanyIn the event this information is protected by the Federal Confidentiality of Alcohol and Drug Abuse Patient Records regulations: The Federal rules restrict any use of the information to criminally investigate or prosecute any alcohol or drug abuse patient.[facility] CompanyIn the event this information is protected by the Federal Confidentiality of Alcohol and Drug Abuse Patient Records regulations: The Federal rules restrict any use of the information to criminally investigate or prosecute any alcohol or drug abuse patient.[facility] CompanyIn the event this information is protected by the Federal Confidentiality of Alcohol and Drug Abuse Patient Records regulations: The Federal rules restrict any use of the information to criminally investigate or prosecute any alcohol or drug abuse patient.[facility] CompanyIn the event this information is protected by the Federal Confidentiality of Alcohol and Drug Abuse Patient Records regulations: The Federal rules restrict any use of the information to criminally investigate or prosecute any alcohol or drug abuse patient.[facility] CompanyIn the event this information is protected by the Federal Confidentiality of Alcohol and Drug Abuse Patient Records regulations: The Federal rules restrict any use of the information to criminally investigate or prosecute any alcohol or drug abuse patient.[facility] CompanyIn the event this information is protected by the Federal Confidentiality of Alcohol and Drug Abuse Patient Records regulations: The Federal rules restrict any use of the information to criminally investigate or prosecute any alcohol or drug abuse patient.[facility] CompanyIn the event this information is protected by the Federal Confidentiality of Alcohol and Drug Abuse Patient Records regulations: The Federal rules restrict any use of the information to criminally investigate or prosecute any alcohol or drug abuse patient.[facility] CompanyIn the event this information is protected by the Federal Confidentiality of Alcohol and Drug Abuse Patient Records regulations: The Federal rules restrict any use of the information to criminally investigate or prosecute any alcohol or drug abuse patient.[facility] CompanyIn the event this information is protected by the Federal Confidentiality of Alcohol and Drug Abuse Patient Records regulations: The Federal rules restrict any use of the information to criminally investigate or prosecute any alcohol or drug abuse patient.[facility] CompanyIn the event this information is protected by the Federal Confidentiality of Alcohol and Drug Abuse Patient Records regulations: The Federal rules restrict any use of the information to criminally investigate or prosecute any alcohol or drug abuse patient.[facility] CompanyIn the event this information is protected by the Federal Confidentiality of Alcohol and Drug Abuse Patient Records regulations: The Federal rules restrict any use of the information to criminally investigate or prosecute any alcohol or drug abuse patient.[facility] CompanyIn the event this information is protected by the Federal Confidentiality of Alcohol and Drug Abuse Patient Records regulations: The Federal rules restrict any use of the information to criminally investigate or prosecute any alcohol or drug abuse patient.[facility] CompanyIn the event this information is protected by the Federal Confidentiality of Alcohol and Drug Abuse Patient Records regulations: The Federal rules restrict any use of the information to criminally investigate or prosecute any alcohol or drug abuse patient.[facility] CompanyIn the event this information is protected by the Federal Confidentiality of Alcohol and Drug Abuse Patient Records regulations: The Federal rules restrict any use of the information to criminally investigate or prosecute any alcohol or drug abuse patient.[facility] CompanyIn the event this information is protected by the Federal Confidentiality of Alcohol and Drug Abuse Patient Records regulations: The Federal rules restrict any use of the information to criminally investigate or prosecute any alcohol or drug abuse patient.[facility] CompanyIn the event this information is protected by the Federal Confidentiality of Alcohol and Drug Abuse Patient Records regulations: The Federal rules restrict any use of the information to criminally investigate or prosecute any alcohol or drug abuse patient.[facility] CompanyIn the event this information is protected by the Federal Confidentiality of Alcohol and Drug Abuse Patient Records regulations: The Federal rules restrict any use of the information to criminally investigate or prosecute any alcohol or drug abuse patient.[facility] CompanyIn the event this information is protected by the Federal Confidentiality of Alcohol and Drug Abuse Patient Records regulations: The Federal rules restrict any use of the information to criminally investigate or prosecute any alcohol or drug abuse patient.[facility] CompanyIn the event this information is protected by the Federal Confidentiality of Alcohol and Drug Abuse Patient Records regulations: The Federal rules restrict any use of the information to criminally investigate or prosecute any alcohol or drug abuse patient.[facility] CompanyIn the event this information is protected by the Federal Confidentiality of Alcohol and Drug Abuse Patient Records regulations: The Federal rules restrict any use of the information to criminally investigate or prosecute any alcohol or drug abuse patient.[facility] ClinicIn the event this information is protected by the Federal Confidentiality of Alcohol and Drug Abuse Patient Records regulations: The Federal rules restrict any use of the information to criminally investigate or prosecute any alcohol or drug abuse patient.[facility] CompanyIn the event this information is protected by the Federal Confidentiality of Alcohol and Drug Abuse Patient Records regulations: The Federal rules restrict any use of the information to criminally investigate or prosecute any alcohol or drug abuse patient.[facility] CompanyIn the event this information is protected by the Federal Confidentiality of Alcohol and Drug Abuse Patient Records regulations: The Federal rules restrict any use of the information to criminally investigate or prosecute any alcohol or drug abuse patient.[facility] CompanyIn the event this information is protected by the Federal Confidentiality of Alcohol and Drug Abuse Patient Records regulations: The Federal rules restrict any use of the information to criminally investigate or prosecute any alcohol or drug abuse patient.[facility] CompanyIn the event this information is protected by the Federal Confidentiality of Alcohol and Drug Abuse Patient Records regulations: The Federal rules restrict any use of the information to criminally investigate or prosecute any alcohol or drug abuse patient.[facility] CompanyIn the event this information is protected by the Federal Confidentiality of Alcohol and Drug Abuse Patient Records regulations: The Federal rules restrict any use of the information to criminally investigate or prosecute any alcohol or drug abuse patient.[facility] CompanyIn the event this information is protected by the Federal Confidentiality of Alcohol and Drug Abuse Patient Records regulations: The Federal rules restrict any use of the information to criminally investigate or prosecute any alcohol or drug abuse patient.[facility] CompanyIn the event this information is protected by the Federal Confidentiality of Alcohol and Drug Abuse Patient Records regulations: The Federal rules restrict any use of the information to criminally investigate or prosecute any alcohol or drug abuse patient.[facility] CompanyIn the event this information is protected by the Federal Confidentiality of Alcohol and Drug Abuse Patient Records regulations: The Federal rules restrict any use of the information to criminally investigate or prosecute any alcohol or drug abuse patient.[facility] CompanyIn the event this information is protected by the Federal Confidentiality of Alcohol and Drug Abuse Patient Records regulations: The Federal rules restrict any use of the information to criminally investigate or prosecute any alcohol or drug abuse patient.[facility] CompanyIn the event this information is protected by the Federal Confidentiality of Alcohol and Drug Abuse Patient Records regulations: The Federal rules restrict any use of the information to criminally investigate or prosecute any alcohol or drug abuse patient.[facility] CompanyIn the event this information is protected by the Federal Confidentiality of Alcohol and Drug Abuse Patient Records regulations: The Federal rules restrict any use of the information to criminally investigate or prosecute any alcohol or drug abuse patient.[facility] CompanyIn the event this information is protected by the Federal Confidentiality of Alcohol and Drug Abuse Patient Records regulations: The Federal rules restrict any use of the information to criminally investigate or prosecute any alcohol or drug abuse patient.[facility] CompanyIn the event this information is protected by the Federal Confidentiality of Alcohol and Drug Abuse Patient Records regulations: The Federal rules restrict any use of the information to criminally investigate or prosecute any alcohol or drug abuse patient.[facility] CompanyIn the event this information is protected by the Federal Confidentiality of Alcohol and Drug Abuse Patient Records regulations: The Federal rules restrict any use of the information to criminally investigate or prosecute any alcohol or drug abuse patient.[facility] CompanyIn the event this information is protected by the Federal Confidentiality of Alcohol and Drug Abuse Patient Records regulations: The Federal rules restrict any use of the information to criminally investigate or prosecute any alcohol or drug abuse patient.[facility] CompanyIn the event this information is protected by the Federal Confidentiality of Alcohol and Drug Abuse Patient Records regulations: The Federal rules restrict any use of the information to criminally investigate or prosecute any alcohol or drug abuse patient.[facility] CompanyIn the event this information is protected by the Federal Confidentiality of Alcohol and Drug Abuse Patient Records regulations: The Federal rules restrict any use of the information to criminally investigate or prosecute any alcohol or drug abuse patient.[facility] CompanyIn the event this information is protected by the Federal Confidentiality of Alcohol and Drug Abuse Patient Records regulations: The Federal rules restrict any use of the information to criminally investigate or prosecute any alcohol or drug abuse patient.[facility] CompanyIn the event this information is protected by the Federal Confidentiality of Alcohol and Drug Abuse Patient Records regulations: The Federal rules restrict any use of the information to criminally investigate or prosecute any alcohol or drug abuse patient.[facility] CompanyIn the event this information is protected by the Federal Confidentiality of Alcohol and Drug Abuse Patient Records regulations: The Federal rules restrict any use of the information to criminally investigate or prosecute any alcohol or drug abuse patient.[facility] CompanyIn the event this information is protected by the Federal Confidentiality of Alcohol and Drug Abuse Patient Records regulations: The Federal rules restrict any use of the information to criminally investigate or prosecute any alcohol or drug abuse patient.[facility] CompanyIn the event this information is protected by the Federal Confidentiality of Alcohol and Drug Abuse Patient Records regulations: The Federal rules restrict any use of the information to criminally investigate or prosecute any alcohol or drug abuse patient.[facility] CompanyIn the event this information is protected by the Federal Confidentiality of Alcohol and Drug Abuse Patient Records regulations: The Federal rules restrict any use of the information to criminally investigate or prosecute any alcohol or drug abuse patient.[facility] CompanyIn the event this information is protected by the Federal Confidentiality of Alcohol and Drug Abuse Patient Records regulations: The Federal rules restrict any use of the information to criminally investigate or prosecute any alcohol or drug abuse patient.[facility] CompanyIn the event this information is protected by the Federal Confidentiality of Alcohol and Drug Abuse Patient Records regulations: The Federal rules restrict any use of the information to criminally investigate or prosecute any alcohol or drug abuse patient.[facility] CompanyIn the event this information is protected by the Federal Confidentiality of Alcohol and Drug Abuse Patient Records regulations: The Federal rules restrict any use of the information to criminally investigate or prosecute any alcohol or drug abuse patient.[facility] CompanyIn the event this information is protected by the Federal Confidentiality of Alcohol and Drug Abuse Patient Records regulations: The Federal rules restrict any use of the information to criminally investigate or prosecute any alcohol or drug abuse patient.[facility] CompanyIn the event this information is protected by the Federal Confidentiality of Alcohol and Drug Abuse Patient Records regulations: The Federal rules restrict any use of the information to criminally investigate or prosecute any alcohol or drug abuse patient.[facility] CompanyIn the event this information is protected by the Federal Confidentiality of Alcohol and Drug Abuse Patient Records regulations: The Federal rules restrict any use of the information to criminally investigate or prosecute any alcohol or drug abuse patient.[facility] CompanyIn the event this information is protected by the Federal Confidentiality of Alcohol and Drug Abuse Patient Records regulations: The Federal rules restrict any use of the information to criminally investigate or prosecute any alcohol or drug abuse patient.[facility] CompanyIn the event this information is protected by the Federal Confidentiality of Alcohol and Drug Abuse Patient Records regulations: The Federal rules restrict any use of the information to criminally investigate or prosecute any alcohol or drug abuse patient.[facility] CompanyIn the event this information is protected by the Federal Confidentiality of Alcohol and Drug Abuse Patient Records regulations: The Federal rules restrict any use of the information to criminally investigate or prosecute any alcohol or drug abuse patient.[facility] CompanyIn the event this information is protected by the Federal Confidentiality of Alcohol and Drug Abuse Patient Records regulations: The Federal rules restrict any use of the information to criminally investigate or prosecute any alcohol or drug abuse patient.[facility] CompanyIn the event this information is protected by the Federal Confidentiality of Alcohol and Drug Abuse Patient Records regulations: The Federal rules restrict any use of the information to criminally investigate or prosecute any alcohol or drug abuse patient.[facility] CompanyIn the event this information is protected by the Federal Confidentiality of Alcohol and Drug Abuse Patient Records regulations: The Federal rules restrict any use of the information to criminally investigate or prosecute any alcohol or drug abuse patient.[facility] CompanyIn the event this information is protected by the Federal Confidentiality of Alcohol and Drug Abuse Patient Records regulations: The Federal rules restrict any use of the information to criminally investigate or prosecute any alcohol or drug abuse patient.[facility] CompanyIn the event this information is protected by the Federal Confidentiality of Alcohol and Drug Abuse Patient Records regulations: The Federal rules restrict any use of the information to criminally investigate or prosecute any alcohol or drug abuse patient.[facility] CompanyIn the event this information is protected by the Federal Confidentiality of Alcohol and Drug Abuse Patient Records regulations: The Federal rules restrict any use of the information to criminally investigate or prosecute any alcohol or drug abuse patient.[facility] CompanyIn the event this information is protected by the Federal Confidentiality of Alcohol and Drug Abuse Patient Records regulations: The Federal rules restrict any use of the information to criminally investigate or prosecute any alcohol or drug abuse patient.[facility] CompanyIn the event this information is protected by the Federal Confidentiality of Alcohol and Drug Abuse Patient Records regulations: The Federal rules restrict any use of the information to criminally investigate or prosecute any alcohol or drug abuse patient.[facility] CompanyIn the event this information is protected by the Federal Confidentiality of Alcohol and Drug Abuse Patient Records regulations: The Federal rules restrict any use of the information to criminally investigate or prosecute any alcohol or drug abuse patient.[facility] CompanyIn the event this information is protected by the Federal Confidentiality of Alcohol and Drug Abuse Patient Records regulations: The Federal rules restrict any use of the information to criminally investigate or prosecute any alcohol or drug abuse patient.[facility] CompanyIn the event this information is protected by the Federal Confidentiality of Alcohol and Drug Abuse Patient Records regulations: The Federal rules restrict any use of the information to criminally investigate or prosecute any alcohol or drug abuse patient.[facility] Reason for Visit (unrecogniz ed section and content) Reason Onset Date Comments Refill Request 09/02/2021 Reason Onset Date Comments Refill Request 09/20/2021 Reason Comments Refill Request Reason Comments Appointment Reason Comments F/U 6 months Reason Comments Arthritis Reason Comments Insurance Authorization Reason Comments Medication Problem Reason Comments Follow Up migraines Reason Comments Trauma Right upper leg/groi n area injury, starting to move down to the knee x 1 month Reason Comments Results Reason Onset Date Comments Refill Request 04/21/2022 Reason Comments Pain, Throat Pain rated 6, fever x1 day. Reason Onset Date Comments Refill Request 12/02/2021 Refill Request 05/22/2022 Reason Comments Established Patient Reason Comments Follow Up Reason Comments Follow Up diabetes, check spot s on left hand Reason Onset Date Comments Refill Request 09/25/2022 Reason Comments Follow Up Reason Onset Date Comments Refill Request 12/28/2022 Reason Onset Date Comments Refill Request 01/22/2023 Reason Onset Date Comments Recheck 6 month follow u p Immunizations 02/26/2023 Flu vaccination Reason Onset Date Comments Refill Request 04/17/2023 Reason Comments Established Patient Knee Pain Injections Reason Comments Abstract PLQ eye exam Reason Onset Date Comments Refill Request 02/08/2024 Reason Onset Date Comments Refill Request 02/22/2024 Reason Comments Radio Gen RMP Specialty Diagnoses / Procedures Referred By Contac t Referred To Contact XR IMAGING Diagnoses Lupus Procedures XR LUMBAR GENERAL 3V AP/LAT/L5-S1 RADEX SPINE LUMBOSACRAL 2/[place] [address] [place] [id number] Xr Imaging [place] [address] Referral ID Status Reason Start Date Expiration Date V isits Requested Visits Authorized [id number] Closed Auto-Generate d Referral 12/23/2021 01/22/2023 1 1 Reason Comments Established Patient Reason Onset Date Comments Refill Request 03/30/2024 Reason Comments Rash middle of back x 3 w eeks, increased x couple days, itching Reason Comments Headaches Follow Up Specialty Diagnoses / Procedures Referred By Contac t Referred To Contact Diagnoses Migraine without aura and without status migrainosus, not intractable Procedures PROVIDER ORDERED FOLLOW UP OFFICE/OUTPATIENT NEW HIGH MDM 60 MINUTES Keiko Maloney, HIGHWAY PAINTER.CUSTOM APPLICATOR [address] [id number] Referral ID Status Reason Start Date Expiration Date V isits Requested Visits Authorized [id number] Closed PCP Requested Referral 03/16/2024 09/14/2024 1 1 Reason Comments Patient Update Reason Comments Same Day Appointment shingles since Frid ay , left flank, painful 10/07 Reason Onset Date Comments Refill Request 04/22/2024 Reason Comments Inflammatory Arthritis Reason Comments Recheck 6 month follow up Reason Onset Date Comments Refill Request 06/29/2024 Reason Comments Headache Specialty Diagnoses / Procedures Referred By Contac t Referred To Contact Diagnoses Migraine without aura and without status migrainosus, not intractable Procedures PROVIDER ORDERED FOLLOW UP OFFICE/OUTPATIENT NEW HIGH MDM 60 MINUTES Eddie Wilson, HIGHWAY PAINTER.CUSTOM APPLICATOR [address] [place] [address] Referral ID Status Reason Start Date Expiration Date V isits Requested Visits Authorized [id number] Closed PCP Requested Referral 07/05/2024 04/04/2025 1 1 Reason Onset Date Comments Refill Request 07/15/2024 Reason Comments Recheck Medication follow up Reason Onset Date Comments Refill Request 08/12/2024 Reason Onset Date Comments Refill Request 09/06/2024 Reason Onset Date Comments Refill Request 09/10/2024 Reason Onset Date Comments Refill Request 09/16/2024 Reason Comments ER F/U [facility] Right hand cat b ite x3 days Reason Comments Recheck 3 month follow up Reason Comments Recheck Cellulitis follow up Reason Onset Date Comments Refill Request 11/04/2024 Reason Onset Date Comments Refill Request 11/14/2024 Reason Comments CARD Follow Up Annual Reason Comments Recheck 4 week follow up [facility] Reason Comments Recheck 4 week follow up Specialty Diagnoses / Procedures Referred By Yuni willson Referred To Contact INTERNAL MEDICINE Diagnoses All Medically Necessary Procedures [place] [address] [place] [address] Phone: tel: fax: Internal Medicine [address] [address] Phone: tel: fax: Referral ID Status Reason Start Date Expiration Date V isits Requested Visits Authorized [id number] New Request 12/21/2024 03/21/2025 1 1 Reason Onset Date Comments Refill Request 01/27/2025 Reason Onset Date Comments Refill Request 01/30/2025 Care Teams (unrecognized sec tion and content) Crisis Nurse Relationship Specialty Start Date End Date David Chicas MD [address] [place], [place] [id number] PCP - General Internal Medicine 09/18/16 Crisis Nurse Relationship Specialty Start Date End Date David Chicas MD [address] [place] [address] PCP - General Internal Medicine 09/18/16 Crisis Nurse Relationship Specialty Start Date End Date David Chicas MD [address] [place] [address] PCP - General Internal Medicine 09/18/16 Crisis Nurse Relationship Specialty Start Date End Date David Chicas MD [address] [place] [address] PCP - General Internal Medicine 09/18/16 Crisis Nurse Relationship Specialty Start Date End Date David Chicas MD [address] [facility] [address] PCP - General Internal Medicine 09/18/16 Crisis Nurse Relationship Specialty Start Date End Date David Chicas MD [address] [place] [address] PCP - General Internal Medicine 09/18/16 Crisis Nurse Relationship Specialty Start Date End Date David Chicas MD [address] [facility] [place] [address] PCP - General Internal Medicine 09/18/16 Crisis Nurse Relationship Specialty Start Date End Date David Chicas MD [address] [facility] [place] [address] PCP - General Internal Medicine 09/18/16 Crisis Nurse Relationship Specialty Start Date End Date David Chicas MD [address] [facility] [place] [address] PCP - General Internal Medicine 09/18/16 Crisis Nurse Relationship Specialty Start Date End Date David Chicas MD [address] [facility] [place] [address] PCP - General Internal Medicine 09/18/16 Crisis Nurse Relationship Specialty Start Date End Date David Chicas MD [address] [place] [address] PCP - General Internal Medicine 09/18/16 Crisis Nurse Relationship Specialty Start Date End Date David Chicas MD [address] [place] [address] PCP - General Internal Medicine 09/18/16 Crisis Nurse Relationship Specialty Start Date End Date David Chicas MD [address] [facility] [place] [address] PCP - General Internal Medicine 09/18/16 Crisis Nurse Relationship Specialty Start Date End Date David Chicas MD [address] [facility] [place] [address] PCP - General Internal Medicine 09/18/16 Crisis Nurse Relationship Specialty Start Date End Date David Chicas MD [address] [facility] [place] [address] PCP - General Internal Medicine 09/18/16 Crisis Nurse Relationship Specialty Start Date End Date David Chicas MD [address] [facility] [place] [address] PCP - General Internal Medicine 09/18/16 Crisis Nurse Relationship Specialty Start Date End Date David Chicas MD [address] [facility] [place] [address] PCP - General Internal Medicine 09/18/16 Crisis Nurse Relationship Specialty Start Date End Date David Chicas MD [address] [facility] [place] [address] PCP - General Internal Medicine 09/18/16 Crisis Nurse Relationship Specialty Start Date End Date David Chicas MD [address] [facility] [place] [address] PCP - General Internal Medicine 09/18/16 Crisis Nurse Relationship Specialty Start Date End Date David Chicas MD [address] [facility] [place] [address] PCP - General Internal Medicine 09/18/16 Crisis Nurse Relationship Specialty Start Date End Date David Chicas MD [address] [facility] [place] [address] PCP - General Internal Medicine 09/18/16 Crisis Nurse Relationship Specialty Start Date End Date David Chicas MD [address] [place] [address] PCP - General Internal Medicine 09/18/16 Crisis Nurse Relationship Specialty Start Date End Date David Chicas MD [address] [place] [address] PCP - General Internal Medicine 09/18/16 Crisis Nurse Relationship Specialty Start Date End Date David Chicas MD [address] [place] [address] PCP - General Internal Medicine 09/18/16 Crisis Nurse Relationship Specialty Start Date End Date David Chicas MD [address] [place] [address] PCP - General Internal Medicine 09/18/16 Team Status: Active Member Role Status Dates Dr. David Chicas MD Primary Care Provider Active Team Status: Inactive Member Role Status Dates Dr. David Chicas MD Primary Care Provider Active Dr. Erick Rose DO Attending Provider, Referring Pro vider Active Crisis Nurse Relationship Specialty Start Date End Date David Chicas MD [address] [place] [address] PCP - General Internal Medicine 09/18/16 Crisis Nurse Relationship Specialty Start Date End Date David Chicas MD [address] [place], [place] [address] PCP - General Internal Medicine 09/18/16 Team Status: Inactive Member Role Status Dates Dr. David Chicas MD Primary Care Provider Active Dr. Elvia Bowers MD Attending Provider, Referring Pr ovider Active Crisis Nurse Relationship Specialty Start Date End Date David Chicas MD [address] [facility] [place] [address] PCP - General Internal Medicine 09/18/16 Crisis Nurse Relationship Specialty Start Date End Date David Chicas MD [address] [facility] [place] [place] [address] PCP - General Internal Medicine 09/18/16 Crisis Nurse Relationship Specialty Start Date End Date David Chicas MD [address] [facility] [place] [address] PCP - General Internal Medicine 09/18/16 Crisis Nurse Relationship Specialty Start Date End Date David Chicas MD [address] [facility] [place] [address] PCP - General Internal Medicine 09/18/16 Crisis Nurse Relationship Specialty Start Date End Date David Chicas MD [address] [facility] [place] [address] PCP - General Internal Medicine 09/18/16 Crisis Nurse Relationship Specialty Start Date End Date David Chicas MD [address] [facility] [place] [address] PCP - General Internal Medicine 09/18/16 Crisis Nurse Relationship Specialty Start Date End Date David Chicas MD [address] [facility] [place] [address] PCP - General Internal Medicine 09/18/16 Crisis Nurse Relationship Specialty Start Date End Date David Chicas MD [address] [facility] [place] [address] PCP - General Internal Medicine 09/18/16 Crisis Nurse Relationship Specialty Start Date End Date David Chicas MD [address] [place] [address] PCP - General Internal Medicine 09/18/16 Crisis Nurse Relationship Specialty Start Date End Date David Chicas MD [address] [place] [address] PCP - General Internal Medicine 09/18/16 Crisis Nurse Relationship Specialty Start Date End Date David Chicas MD [address] [place] [address] PCP - General Internal Medicine 09/18/16 Crisis Nurse Relationship Specialty Start Date End Date David Chicas MD [address] [place] [address] PCP - General Internal Medicine 09/18/16 Crisis Nurse Relationship Specialty Start Date End Date David Chicas MD [address] [place] [address] PCP - General Internal Medicine 09/18/16 Crisis Nurse Relationship Specialty Start Date End Date David Chicas MD [address] [place] [address] PCP - General Internal Medicine 09/18/16 Crisis Nurse Relationship Specialty Start Date End Date David Chicas MD [address] [place] [address] PCP - General Internal Medicine 09/18/16 Jenny Lu PA-C [address] [place] [address] [facility] 05/07/24 Mattie Somers APRN.CUSTOM APPLICATOR [address] [place] [address] [facility] 05/07/24 Louann Damon PA-C [address] [place] [address] [facility] 05/07/24 Crisis Nurse Relationship Specialty Start Date End Date David Chicas MD [address] [facility] [address] PCP - General Internal Medicine 09/18/16 Jenny Lu PA-C [address] [place] [address] [facility] 05/07/24 Mattie Somers APRN.CUSTOM APPLICATOR [address] [place] [place] [address] [facility] 05/07/24 Louann Damon PA-C [address] [place] [address] [facility] 05/07/24 Crisis Nurse Relationship Specialty Start Date End Date David Chicas MD [address] [place] [address] PCP - General Internal Medicine 09/18/16 Jenny Lu PA-C [address] [place] [address] [facility] 05/07/24 Mattie Somers APRN.CUSTOM APPLICATOR [address] [place] [address] [facility] 05/07/24 Louann Damon PA-C [address] [place] [address] [facility] 05/07/24 Crisis Nurse Relationship Specialty Start Date End Date David Chicas MD [address] [place] [address] PCP - General Internal Medicine 09/18/16 Jenny Lu PA-C [address] [place] [address] [facility] 05/07/24 Mattie Somers APRN.CUSTOM APPLICATOR [address] [place] [address] [facility] 05/07/24 Louann Damon PA-C [address] [place] [address] [facility] 05/07/24 Crisis Nurse Relationship Specialty Start Date End Date David Chicas MD [address] [place] [address] PCP - General Internal Medicine 09/18/16 Jenny Lu PA-C [address] [place] [address] [facility] 05/07/24 Mattie Somers APRN.CUSTOM APPLICATOR [address] [place] [address] [facility] 05/07/24 Louann Damon PA-C [address] [facility] [place] [address] [facility] 05/07/24 Crisis Nurse Relationship Specialty Start Date End Date David Chicas MD [address] [facility] [place] [address] PCP - General Internal Medicine 09/18/16 Jenny Lu PA-C [address] [place] [address] [facility] 05/07/24 Mattie Somers APRN.CUSTOM APPLICATOR [address] [place] [address] [facility] 05/07/24 Louann Damon PA-C [address] [place] [address] [facility] 05/07/24 Crisis Nurse Relationship Specialty Start Date End Date David Chicas MD [address] [place] [address] PCP - General Internal Medicine 09/18/16 Jenny Lu PA-C [address] [place] [address] [facility] 05/07/24 Mattie Somers APRN.CUSTOM APPLICATOR [address] [place] [address] [facility] 05/07/24 Louann Damon PA-C [address] [place] [address] [facility] 05/07/24 Crisis Nurse Relationship Specialty Start Date End Date David Chicas MD [address] [place] [address] PCP - General Internal Medicine 09/18/16 Jenny Lu PA-C [address] [place] [address] [facility] 05/07/24 Mattie Somers APRN.CUSTOM APPLICATOR [address] [place] [address] [facility] 05/07/24 Louann Damon PA-C [address] [place] [address] [facility] 05/07/24 Crisis Nurse Relationship Specialty Start Date End Date David Chicas MD [address] [place] [address] PCP - General Internal Medicine 09/18/16 Jenny Lu PA-C [address] [place] [address] [facility] 05/07/24 Mattie Somers APRN.CUSTOM APPLICATOR [address] [place] [address] [facility] 05/07/24 Louann Damon PA-C [address] [place] [address] [facility] 05/07/24 Crisis Nurse Relationship Specialty Start Date End Date David Chicas MD [address] [facility] [place] [address] PCP - General Internal Medicine 09/18/16 Jenny Lu PA-C [address] [place] [address] [facility] 05/07/24 Mattie Somers APRN.CUSTOM APPLICATOR [address] [place] [address] [facility] 05/07/24 Louann Damon PA-C [address] [place] [address] [facility] 05/07/24 Crisis Nurse Relationship Specialty Start Date End Date David Chicas MD [address] [place] [address] PCP - General Internal Medicine 09/18/16 Mattie Somers APRN.CUSTOM APPLICATOR [address] [place] [address] [facility] 05/07/24 Crisis Nurse Relationship Specialty Start Date End Date David Chicas MD [address] [place] [address] PCP - General Internal Medicine 09/18/16 Mattie Somers APRN.CUSTOM APPLICATOR [address] [place] [address] [facility] 05/07/24 Crisis Nurse Relationship Specialty Start Date End Date David Chicas MD [address] [facility] [place], [place] [id number] PCP - General Internal Medicine 09/18/16 Mattie Somers APRN.CUSTOM APPLICATOR [address] [facility] [place], [place] [address] [facility] 05/07/24 Crisis Nurse Relationship Specialty Start Date End Date David Chicas MD [address] [facility] [place] [address] PCP - General Internal Medicine 09/18/16 Mattie Somers APRN.CUSTOM APPLICATOR [address] [facility] [place] [address] [facility] 05/07/24 Team Status: Inactive Member Role Status Dates Dr. David Chicas MD Primary Care Provider Active Start: June 21, 2024 End: June 21, 2024 Dr. David Chicas MD Referring Provider Active Start: June 21, 2024 End: June 21, 2024 Patricia Costa ACREAGE REPORTER, ACREAGE REPORTER-C Attending Provider Active Start: June 21, 2024 End: June 21, 2024 Team Status: Inactive Member Role Status Dates Dr. David Chicas MD Primary Care Provider Active Start: October 13, 2024 End: October 13, 2024 Dr. Rajiv Ni DO Emergency Provider Active Start: October 13, 2024 End: October 13, 2024 Crisis Nurse Relationship Specialty Start Date End Date David Chicas MD [address] [facility] [place] [address] PCP - General Internal Medicine 09/18/16 Mattie Somers APRN.CUSTOM APPLICATOR [address] [facility], [place] [address] [facility] 05/07/24 Crisis Nurse Relationship Specialty Start Date End Date David Chicas MD [address] [facility] [place] [address] PCP - General Internal Medicine 09/18/16 Mattie Somers APRN.CUSTOM APPLICATOR [address] [place] [address] [facility] 05/07/24 Crisis Nurse Relationship Specialty Start Date End Date David Chicas MD [address] [place] [address] PCP - General Internal Medicine 09/18/16 Mattie Somers APRN.CUSTOM APPLICATOR [address] [facility] [place] [address] [facility] 05/07/24 Crisis Nurse Relationship Specialty Start Date End Date David Chicas MD [address] [facility] [place] [address] PCP - General Internal Medicine 09/18/16 Mattie Somers APRN.CUSTOM APPLICATOR [address] [facility] [place] [place] [address] [facility] 05/07/24 Crisis Nurse Relationship Specialty Start Date End Date David Chicas MD [address] [facility] [place] [address] PCP - General Internal Medicine 09/18/16 Mattie Somers APRN.CUSTOM APPLICATOR [address] [facility] [place] [place] [address] [facility] 05/07/24 Team Status: Inactive Member Role Status Dates Dr. David Chicas MD Primary Care Provider Active Start: October 13, 2024 End: October 13, 2024 Dr. Rajiv Ni , DO Attending Provider Active Start: October 13, 2024 End: October 13, 2024 Dr. Rajiv Ni , DO Emergency Provider Active Start: October 13, 2024 End: October 13, 2024 Team Status: Inactive Member Role Status Dates Dr. David Chicas MD Primary Care Provider Active Start: November 14, 2024 End: November 14, 2024 Dr. David Chicas MD Referring Provider Active Start: November 14, 2024 End: November 14, 2024 Patricia Costa ACREAGE REPORTER, ACREAGE REPORTER-C Attending Provider Active Start: November 14, 2024 End: November 14, 2024 Crisis Nurse Relationship Specialty Start Date End Date David Chicas MD [address] [facility] [place] [address] PCP - General Internal Medicine 09/18/16 Mattie Somers APRN.CUSTOM APPLICATOR [address] [place] [address] [facility] 05/07/24 Crisis Nurse Relationship Specialty Start Date End Date David Chicas MD [address] [facility] [place] [address] PCP - General Internal Medicine 09/18/16 Mattie Somers APRN.CUSTOM APPLICATOR [address] [place] [place] [address] [facility] 05/07/24 Crisis Nurse Relationship Specialty Start Date End Date David Chicas MD [address] [facility] [place] [address] PCP - General Internal Medicine 09/18/16 Mattie Somers APRN.CUSTOM APPLICATOR [address] [place] [address] [facility] 05/07/24 Crisis Nurse Relationship Specialty Start Date End Date David Chicas MD [address] [place] [address] PCP - General Internal Medicine 09/18/16 Mattie Somers APRN.CUSTOM APPLICATOR [address] [place] [address] [facility] 05/07/24 Crisis Nurse Relationship Specialty Start Date End Date David Chicas MD [address] [place] [address] PCP - General Internal Medicine 09/18/16 Lizbet, CLIFTON Phelps.CUSTOM APPLICATOR [address] [place] [address] [facility] 05/07/24 Crisis Nurse Relationship Specialty Start Date End Date David Chicas MD [address] [place] [address] PCP - General Internal Medicine 09/18/16 Mattie Somers APRN.CUSTOM APPLICATOR [address] [place] [address] [facility] 05/07/24 Crisis Nurse Relationship Specialty Start Date End Date David Chicas MD [address] [place] [address] PCP - General Internal Medicine 09/18/16 Mattie Somers APRN.CUSTOM APPLICATOR [address] [place] [address] [facility] 05/07/24 Team Status: Active Member Role/Relationship Status Dates Dr. David Chicas MD Primary Care Provider Active Team Status: Inactive Member Role/Relationship Status Dates Dr. David Chicas MD Primary Care Provider Active Start: October 13, 2024 End: October 13, 2024 Dr. Rajiv Ni DO Attending Provider Active Start: October 13, 2024 End: October 13, 2024 Dr. Rajiv Ni DO Emergency Provider Active Start: October 13, 2024 End: October 13, 2024 Team Status: Inactive Member Role/Relationship Status Dates Dr. David Chicas MD Primary Care Provider Active Start: November 14, 2024 End: November 14, 2024 Dr. David Chicas MD Referring Provider Active Start: November 14, 2024 End: November 14, 2024 Patricia Costa ACREAGE REPORTER, ACREAGE REPORTER-C Attending Provider Active Start: November 14, 2024 End: November 14, 2024 Team Status: Inactive Member Role/Relationship Status Dates Dr. David Chicas MD Primary Care Provider Active Start: January 30, 2025 End: January 30, 2025 Patricia Costa ACREAGE REPORTER, ACREAGE REPORTER-C Attending Provider Active Start: January 30, 2025 End: January 30, 2025 Crisis Nurse Relationship Specialty Start Date End David Chicas MD [address] [place] [address] PCP - General Internal Medicine 09/18/16 Mattie Somers APRN.CNP [address] [place] [address] [facility] 05/07/24 Team Status: Active Member Role/Relationship Status Dates Dr. David Chicas MD Primary care physician Active Team Status: Inactive Member Role/Relationship Status Dates Dr. David Chicas MD Primary care physician Active Start: November 14, 2024 End: November 14, 2024 Dr. David Chicas MD Referring Provider Active Start: November 14, 2024 End: November 14, 2024 Patricia Costa ACREAGE REPORTER, ACREAGE REPORTER-C Attending physician Active Start: November 14, 2024 End: November 14, 2024 Team Status: Inactive Member Role/Relationship Status Dates Dr. David Chicas MD Primary care physician Active Start: January 30, 2025 End: January 30, 2025 Patricia Costa ACREAGE REPORTER, ACREAGE REPORTER-C Attending physician Active Start: January 30, 2025 End: January 30, 2025 Team Status: Inactive Member Role/Relationship Status Dates Dr. David Chicas MD Primary care physician Active Start: February 12, 2025 End: February 12, 2025 Dr. Elvia Bowers MD Attending physician Active Start: February 12, 2025 End: February 12, 2025 Dr. Elvia Bowers MD Referring Provider Active Start: February 12, 2025 End: February 12, 2025 Goals (unrecognized section and content) Goals may be documented in a n alternate sectionGoals may be documented in an alternate sectionGoals may be documented in an alternate section No data available for this sectionGoals may be documented in an alternate sectionGoals may be documented in an alternate sectionGoals may be documented in an alternate sectionGoals may be documented in an alternate section FOR RECORDS PERTAINING TO PATIENTS WHO ARE OR HAVE BEEN ENROLLED IN A CHEMICAL DEPENDENCY/SUBSTANCEABUSE PROGRAM, SOME INFORMATION MAY BE OMITTED. This clinical summary was aggregated from multiple sources. Caution should be exercised in using it in the provision of clinical care. This summary normalizes information from multiple sources, and as a consequence, information in this document may materially change the coding, format and clinical context of patient data. In addition, data may be omitted in some cases. CLINICAL DECISIONS SHOULD BE BASED ON THE PRIMARY CLINICAL RECORDS. [employer] provides no warranty or guarantee of the accuracy or completeness of information in this document.
== END | disposition home or self-care (01) ==
LOC: CT 15:38
PROVIDERS: PCP Internal Medicine; Referring Provider Nurse Practitioner Acute Care; Visit Provider Nurse Practitioner Acute Care
DX: F17.210 Nicotine dependence, cigarettes, uncomplicated (principal)
CPT/HCPCS: 71271

== ENCOUNTER 2025-05-13 12:00 | Emergency (ER) | payer MEDICARE, SELFPAY ==
[2025-05-13 12:00] VITALS: BP 167/73; PULSE 118; RESP 22; TEMP 36.6; O2SAT 100
--- NOTE | 2025-05-13 12:05 | EDS_ITS ---
HPI HPI - Fall History of Present Illness Chief Complaint: Fall [facility] Medical History (Reviewed 04/24/25 @ 10:36 by Patricia Costa SYNTHETIC CLOTH BINDING CUTTER, SYNTHETIC CLOTH BINDING CUTTER-C) Shingles History of trigger finger Thyroid disorder Lupus Sleep apnea Bronchitis Home Medications ?Medication ?Instructions ?Recorded ?Last Taken ?Type cholecalciferol (vitamin D3) 125 125 mcg PO DAILY 03/01 01/17 Unknown History mcg (5,000 unit) capsule diclofenac sodium 75 mg 75 mg PO BID 03/27/20 Unknow n History tablet,delayed release folic acid 1 mg tablet 1 mg PO BID 03/27/20 Unknown History lansoprazole 30 mg capsule,delayed 30 mg PO DAILY 03/01 01/17 Unknown History release (Prevacid) zeopbexg-ismasig-lyhj-lutein tablet tab PO 03/27/20 Un known History omega-3 fatty acids 1,000 mg 1,000 mg PO BID 03/27/20 Unknown History capsule ezetimibe 10 mg tablet 10 mg PO DAILY 12/09/22 Unkn own History albuterol sulfate 90 mcg/actuation 2 puff inhalation Q 4H PRN 12/10/23 Unknown Rx aerosol inhaler (Ventolin HFA) shortness of breath or wheezing #18 grams hydroxychloroquine 200 mg tablet 200 mg PO BID 5 Unknown History (Plaquenil) levothyroxine 100 mcg tablet 100 mcg PO QDAY 11/14/24 Unknown History (Synthroid) losartan 100 mg tablet 100 mg PO QDAY 11/14/24 Unkn own History metformin 500 mg tablet,extended 500 mg PO QDAY Unknown History release 24 hr sertraline 100 mg tablet 100 mg PO QDAY 11/14/24 Unkn own History sulfasalazine 500 mg tablet See Rx Instructions PO BID 11/14/24 Unknown History topiramate 100 mg tablet 100 mg PO QDAY 11/14/24 Unkn own History topiramate 50 mg tablet 50 mg PO QDAY 11/14/24 Unkno wn History CPAP - Continuous Positive Airway CHATO 02/22/25 Unknown History Pressure([facility] ONLY) bupropion HCl 150 mg 24 hr tablet, 150 mg PO QDAY 04/01 10/22 Unknown History extended release phentermine 37.5 mg capsule 37.5 mg PO QDAY 04/24/25 U nknown History tizanidine 4 mg tablet 4 mg PO QHS PRN 04/24/25 Unk nown History orphenadrine citrate 100 mg 100 mg PO BID PRN pain (sc siobhan 05/13/25 Unknown Rx tablet,extended release score 7-10) #14 tabs oxycodone 5 mg tablet 5 mg PO Q6H PRN pain 3 days #12 05/13/25 Unknown Rx tabs Allergy/AdvReac Type Severity Reaction Status Date / Time azithromycin (From Zithromax AdvReac Mild Abdominal Verified 05/13/25 12:00 Z-Jose) cramping lisinopril AdvReac Mild Sleepy Verified 05/13/25 12:00 Family History (Reviewed 04/24/25 @ 10:36 by Patricia Costa SYNTHETIC CLOTH BINDING CUTTER, SYNTHETIC CLOTH BINDING CUTTER-C) Sister Breast cancer Sister Heart disease Hypertrophic cardiomyopathy Surgical History History of carpal tunnel release History of cholecystectomy Social History Smoking Status: Former smoker how long ago did patient quit smokin alcohol intake: never substance use type: does not use EXAM Physical Exam Const Vital Signs: 05/13/25 12:00 05/13/25 12:08 05/13/25 13:25 Temperature 97.9 F 97.2 F L Temperature Source Temporal Pulse Rate 118 H 78 Respiratory Rate 22 H 15 Respiratory Effort Normal Non-Labored Respiratory Depth Normal Respiratory Pattern Normal Blood Pressure 167/73 H 132/51 H Blood Pressure Mean 104 78 Pulse Ox 100 100 Oxygen Delivery Method Room Air Room Air MDM MDM MDM Narrative Medical decision making narrative: HISTORY OF PRESENT ILLNESS: Chief complaint: Fall, right hip pain 60-year-old female history of lupus, tobacco use, CHATO and obesity presents with concern for fall. Notes she had a mechanical fall prior to arrival injuring her right hip and buttocks. No head trauma or LOC reported. Notes spasm-like pain in the right hamstring region. Think she may have strained her hamstring. REVIEW OF SYSTEMS: Pertinent positives: Right posterior thigh pain Pertinent negatives: Back pain, headache PHYSICAL EXAM: Nursing triage notes reviewed, Vital signs reviewed Primary Survey Airway: Intact Breathing: Bilateral breath sounds Circulation: Palpable bilateral femorals, Palpable bilateral radial, Palpable bilateral DP and Palpable bilateral PT Disability / Spine precautions GCS Score: Eye Openin Verbal Response: 5 Motor Response: 6 Secondary Survey Constitutional: Please see [facility] Head: Atraumatic, Midface stable, NO jaw malocclusion, No Cephalohematoma, and No Lacerations noted Eye: Pupils equal round and reactive to light, Extraocular muscles intact and No periorbital ecchymosis or stepoff, no evidence of entrapment ENT: Oropharynx clear, no lacerations, no hemotympanum, no raccoon eyes or jurado sign Cervical spine / Neck: No cervical spine bony tenderness, crepitance, or stepoff deformity Trachea midline Lungs: Clear to auscultation, No asymmetric rise and No crepitus, no flail chest Cardiac: Regular rate and rhythm and No murmurs Abdomen: Soft, Nontender and No rebound Pelvis: Pelvis stable to compression : No evidence of genital injury Back: No midline bony tenderness to thoracic/lumbar/sacral spines Neuro: At baseline, intact strength and sensation in bilateral upper and lower extremities. 2+ patellar reflexes bilaterally. Extremities: NO gross Deformities. TTP over right hamstring. No TTP over right greater trochanter. Psych: Normal affect Nursing triage notes reviewed, Vital signs reviewed MEDICAL DECISION MAKING: Chief Complaint: please see HPI External records reviewed: Reviewed prior imaging of the sacrum and coccyx. X- ray of sacrum and coccyx of January 2025 show degenerative changes sacroiliac joints the lower lumbar spine but did not reveal acute fractures or dislocations. Factors affecting care: n as per HPI Social determinants of health: History of tobacco use History obtained from others: Family friend Consults: none [facility] Narrative: The patient initially tachycardic, otherwise afebrile. Initial trauma exam revealed the following differentials: I considered the following differential diagnosis: Hamstring strain, bony injury to the hip or pelvis of the right I obtained an x-ray to further determine if the patient was suffering from a li fe-threatening etiology. Initially treat the patient with oral benzodiazepines for muscle laxation, muscle relaxers and Tylenol. ALL IMAGES (IF OBTAINED) HAVE BEEN PERSONALLY REVIEWED AND INTERPRETED BY MYSELF. X-ray of the right hip and pelvis were read and reviewed resting myself no evidence of obvious bony injury. On reassessment patient exquisite tenderness over right hamstring. He was given extra dose oxycodone. I suspect her etiology is a hamstring strain. She was given oxycodone, anti-inflammatories [id number] pain control medication recommendations. Was also given breast recommendations, ice recommendations and early mobilization and tendon strengthening recommendations. The patient and/or family, caregivers express understanding. The patient and/or family, caregivers agrees with the plan. Shared decision making: I will have a discussion with the patient and or visitors regarding risk/benefits of further testing or admission. They will be made aware of of t he risk/benefits inherent in this decision they will be given the opportunity to voice understanding. Total critical care time today provided was at least 0 minutes. This excludes separately billable procedures. Critical care time (if documented) is secondary to the patient having high probability of clinically significant/life threatening deterioration in the patient's condition which required my urgent intervention. Impression: 1. Acute hamstring 2. Fall Dispo: Discharge This note was generated with [employer] dictation software. It may contain incorrect words, spelling, and punctuation that were not noted in review of the chart prior to signing. Radiography Diagnostic Testing: Clinical Impression(s) from Imaging Studies Hip/Pelvis X-Ray 05/13/25 12:30 IMPRESSION: As above. Reading Location: [id number] Discharge Plan Triage Chief Complaint: Fall ED Provider: Aman Cordero Dx/Rx/DC Orders Clinical Impression: Hamstring strain Instructions: Lying Hamstring Curl Prescriptions: New oxycodone 5 mg tablet 5 mg PO Q6H PRN (Reason: pain) 3 Days Qty: 12 0RF orphenadrine citrate 100 mg tablet extended release 100 mg PO BID PRN (Reason: pain (scale score 7-10)) Qty: 14 0RF No Action diclofenac sodium 75 mg tablet,delayed release (DR/EC) 75 mg PO BID lansoprazole [Prevacid] 30 mg capsule,delayed release(DR/EC) 30 mg PO DAILY ieszxaog-laneuby-hhji-lutein Tablet PO cholecalciferol (vitamin D3) 125 mcg (5,000 unit) capsule 125 mcg PO DAILY omega-3 fatty acids 1,000 mg capsule 1,000 mg PO BID folic acid 1 mg tablet 1 mg PO BID ezetimibe 10 mg tablet 10 mg PO DAILY albuterol sulfate [Ventolin HFA] 90 mcg/actuation HFA aerosol inhaler 2 puff INHALATION Q4H PRN (Reason: shortness of breath or wheezing) Qty: 18 6RF hydroxychloroquine [Plaquenil] 200 mg tablet 200 mg PO BID sulfasalazine 500 mg tablet See Rx Instructions PO BID Rx Instructions: orally twice a day; 1 tablet in the morning, 2 tablets at HS sertraline 100 mg tablet 100 mg PO QDAY metformin 500 mg tablet extended release 24 hr 500 mg PO QDAY losartan 100 mg tablet 100 mg PO QDAY topiramate 50 mg tablet 50 mg PO QDAY topiramate 100 mg tablet 100 mg PO QDAY levothyroxine [Synthroid] 100 mcg tablet 100 mcg PO QDAY tizanidine 4 mg tablet 4 mg PO QHS PRN bupropion HCl 150 mg tablet extended release 24 hr 150 mg PO QDAY phentermine 37.5 mg capsule 37.5 mg PO QDAY Rx Instructions: must administer 30 minutes before or 1-2 hours after breakfast CPAP - Continuous Positive Airway Pressure([facility] USE ONLY) Rx Instructions: AUTOCPAP 10-20 CMH2O DME- DASCO FULL FACE MASK Primary Care Provider: Ce Hollins Referrals: Ce Hollins MD [Primary Care Provider, Internal Medicine] Activity Restrictions/Additional Instructions: Thank you for trusting us with your care today! Your presentation is most consistent with a hamstring strain. The x-ray of your hip and pelvis showed no signs of bony injury. Please allow rest for the first 24 to 48 hours. After this time and after the acute inflammatory phase please start gentle range of motion and strengthening exercises. You can contract your heel against a stationary object and to feel tension through the painful tissue. He could also do lying hamstring curls. Please take Tylenol (2 pills, 650 mg), ibuprofen (2 pills, 400 mg) every 6 hours as needed for pain and fever control. Please take Muscle relaxer (Norflex/orphenadrine) for additional pain control. If this regimen does not control your pain please take oxycodone for breakthrough pain. Please return to the emergency department if your symptoms change or worsen. Please follow with your primary care physician for further outpatient evaluation and management. Print Language: Vietnamese Disposition Disposition: Home, Self Care Discharge Date/Time: 05/13/25 13:29
--- OUTSIDE RECORDS SUMMARY | 2025-05-13 12:17 | XMS RPT_ITS | CCD ---
Author Organization [facility] Care Team Providers Care Personal Computer Network Engineer Name Role Phone Gurvinder KUMAR, David Primary Care Provider JAIR KUMAR, DR CAIO Hebert Primary Care Physician ( [phone] JAIR KUMAR, DR CAIO Hebert Primary Care Unavaila SARA Jimenez DO Attending Unavailable David Chicas MD Primary Care Provider Jenny Lu PA-C Unavailable Older BRAID CUTTER.DEICER REPAIRER, Mattie Unavailable Louann Damon PA-C Unavailable Dr. [...] Unavailable Ganta, David Primary Care Unavailable Ganta, Daivd Referring Unavailable Ganta, David Primary Care Unavailable Julissa SPINNING LATHE OPERATOR HYDRAULIC, Patricia Attending Unavailable Ganta, David Referring Unavailable Ganta, David Primary Care Unavailable Costa SPINNING LATHE OPERATOR HYDRAULIC, Patricia Attending Unavailable Costa SPINNING LATHE OPERATOR HYDRAULIC, Patricia Attending Unavailable [facility], David Referring Unavailable [facility], [facility] Primary Care Unavailable [facility], David Primary Care Unavailable Julissa SPINNING LATHE OPERATOR HYDRAULIC, Patricia Attending Unavailable Julissa SPINNING LATHE OPERATOR HYDRAULIC, Patricia Referring Unavailable Rajiv Ni Attending Unavailable [facility], David Primary Care Unavailable Julissa SPINNING LATHE OPERATOR HYDRAULIC, Patricia Referring Unavailable Julissa SPINNING LATHE OPERATOR HYDRAULIC, Patricia Attending Unavailable Gan, David Primary Care Unavailable [facility], David Primary Care Unavailable Julissa SPINNING LATHE OPERATOR HYDRAULIC, Patricia Attending Unavailable [facility], [facility] Primary Care Unavailable Elvia Bowers Attending Unavailable Elvia Bowers Referring Unavailable Allergies Allergy Classification Reported Allergen(s) Allergy Type Date of Onset Reaction(s) Facility Angiotensin Converting Enzyme (MARIN) Inhibitors (3 sources) Lisinopril Drug Allergy 2 Intolerance [facility] HMG-CoA Reductase Inhibitors (statins) (3 sources) [facility]atin [facility] Macrolides (antibiotic) (3 sources) Azithromycin Drug Allergy 8 [facility] Work Phone: (20 sources) Azithromycin; Translations: [AZITHROMYCIN] Drug Allergy 8 Abdominal cramping [facility] Work Phone: (20 sources) Lisinopril; Translations: [LISINOPRIL] Drug Allergy 2 Intolerance [facility] (20 sources) Pravastatin; Translations: [PRAVASTATIN] Drug Allergy [facility] (1 source) Azithromycin Drug Allergy 5 [facility] Repository (1 source) Lisinopril Drug Allergy 5 [facility] Repository Medications Current Medications Medication Drug Class(es) [...] once daily. CPAP - Continuous Positive Airway Pressure([facility] INFORMATIONAL USE ONLY) (1 source) Start: 02-22-2025 [...] on above: Take 2 tablets by mo [facility] once daily. hydroxychloroquine sulfate 2 00 mg [...] on above: Take 1 capsule by mo [facility] once daily. levothyroxine sodium 0.1 mg oral [...] 1 application to affected area once daily. Ktkfgpgt-Bdxksda-Nlwi -Lutein (3 sources) Start: Gwoxabew-Knugxed-Pj on-Lutein Active TABLET PO March 27, 2020 12:00am Start: 03-27-2020 Multivit-[place] kd-Ftli-Hjtfhj Active TABLET PO March 26, 2020 11:00pm Xpkkbjis-Euqwcjk-Jnrg-Lutein tablet (4 sources) Start: 03-27-2020 Start: 03-27-2020 Multivit-[place] vk-Qufj-Gixvlv tablet Active {tbl} PO March 27, 2020 12:00am MV with Lkr-Fpqtsyxk-Luadsn (CENTRUM SILVER) 0.4-300-250 mg-mcg-mcg tab (20 sources) Start: 04-05-2013 take 1 tablet by mouth once daily MV with Wef-Jtojckjd-Wplyjt (CENTRUM SILVER) 0.4-300-250 mg-mcg-mcg tab Take 1 tablet by mouth once daily. 1 tablet 0 04/05/2013 Active Comment on above: Take 1 tablet by abimael once daily. omega-3 acid ethyl esters (mcfp) 1000 mg oral capsule (20 sources) Start: 04-02-2021 End: 02-25-2022 omega-3 acid ethyl esters (LOVAZA) 1 gram capsule TAKE 2 CAPSULES ONCE DAILY 180 capsule 3 02/25/2022 Active Comment on above: TAKE 2 CAPSULES ONCE DAILY [place]-3 Fatty Acids (3 sources) Start: 03-27-2020 take 1000 mg by mouth twice daily [place]-3 Fatty Acids Active 1000 MG PO TWICE A DAY March 27, 2020 12:00am Start: 03-27-2020 take 1000 mg by mouth twice da delvin [place]-3 Fatty Acids Active 1000 MG PO TWICE A DAY March 26, 2020 11:00pm [place]-3 Fatty Acids 1,000 mg capsule (4 sources) Start: 03-27-2020 take 1 capsule by [facility] twice daily Start: 03-27-2020 take 1 capsule by [facility] twice daily [place]-3 Fatty Acids 1,000 mg capsule Active 1000 [...] Comment on above: Take 2 tablets by [facility] once daily for 5 days. sertraline 100 [...] Comment on above: Take 1 tablet by [facility] once daily. Forgot Rx when traveling, do [...] January 26, 2021 December 09, 2022 10:47am [id number] 200 actuat albuterol 0.09 mg/actuat metered dose [...] on above: Take 3 tablets by mo [facility] once daily. Take 1 tablet by abimael [...] (6 sources) Drug therapy finding; Translations: [Other joint terminal attack controller (current) drug therapy] Episodic Other aftercare (1 source) Long-term current use of immunosuppressive drug; Translations: [Other custodial (current) drug therapy] Episodic Other aftercare (2 sources) Other custodial (current) drug therapy; Translations: [Long-term use of Plaquenil] Onset: 8 Episodic Other aftercare (1 source) residential (current) use of non-steroidal anti-inflammatories (NSAID); Translations: [...] (20 sources) Patient encounter status; Translations: [Other joint terminal attack controller (current) drug therapy] Onset: 11-22-2017 11-22-2017 Episodic Other aftercare (20 sources) Long-term current use of drug therapy; Translations: [Other custodial (current) drug therapy] Onset: 11-22-2017 11-22-2017 Episodic [...] Anion gap [Moles/Vol] 14 mmol/L Normal 8-15 [facility] Comment on above: Order Comment: Speci men Type: BLOOD SPECIMENOrdering Facility: [facility] Address: [address] [place] [address] Performed By: #### 2 4320-07, ####[facility] LABCLIA [id number] [place] [address] [place] Calcium [Mass/Vol] 9.7 mg/dL Normal 8.5-10.2 [facility] Comment on above: Order Comment: Speci men Type: BLOOD SPECIMENOrdering Facility: [facility] Address: [address] [place] [address] Performed By: #### 2 4320-07, ####[facility] LABCLIA [id number] [place] [address] [place] Chloride [Moles/Vol] 105 mmol/L Normal 98-107 [facility] Comment on above: Order Comment: Speci men Type: BLOOD SPECIMENOrdering Facility: [facility] Address: [address] [place] [address] Performed By: #### 2 2, ####[facility] LABCLIA [id number] [place] [address] [place] CO2 [Moles/Vol] 20 mmol/L Low 22-30 [facility] Comment on above: Order Comment: Speci men Type: BLOOD SPECIMENOrdering Facility: [facility] Address: [address] [place] [address] Performed By: #### 2 4320-2, ####[facility] LABCLIA [id number] [place] [address] [place] Creatinine [Mass/Vol] 0.83 mg/dL Normal 0.58-0.96 [facility] Comment on above: Order Comment: Speci men Type: BLOOD SPECIMENOrdering Facility: [facility] Address: [address] [place] [address] Performed By: #### 2 2, ####[facility] LABCLIA [id number] [place] [address] [place] eGFRcr SerPlBld CKD-EPI 2020 81 mL/min/1.73m??? Normal >=60 [facility] Comment on above: Order Comment: Speci men Type: BLOOD SPECIMENOrdering Facility: [facility] Address: [address] [place] [address] Result Comment: Rosana mated Glomerular Filtration Rate [...] actual GFR. Performed By: #### 2 4320-2, ####[facility] LABCLIA [id number] [place] [id number] [place] Glucose [Mass/Vol] 87 mg/dL Normal 74-99 [facility] Comment on above: Order Comment: Speci men Type: BLOOD SPECIMENOrdering Facility: [facility] Address: [address] [place] [address] Result Comment: The [place] Diabetes Association (ADA) provides guidance for cutoff [...] Standards of Medical Care in Diabetes 2016, [place] [employer]. Diabetes Care. 2016.39(Suppl 1). Performed By: #### 2 4320-07, ####[facility] LABCLIA [id number] [place] [address] [place] Potassium [Moles/Vol] 4.5 mmol/L Normal 3.7-5.1 [facility] Comment on above: Order Comment: Speci men Type: BLOOD SPECIMENOrdering Facility: [facility] Address: [address] [place] [address] Performed By: #### 2 4320-07, ####[facility] LABCLIA [id number] [place] [address] [place] Sodium [Moles/Vol] 139 mmol/L Normal 136-144 [facility] Comment on above: Order Comment: Bernardi kelly Type: BLOOD SPECIMENOrdering Facility: [facility] Address: [address] [place] [address] Performed By: #### 2 4320-07, ####[facility] LABCLIA [id number] [place] [address] [place] Urea nitrogen [Mass/Vol] 16 mg/dL Normal 7-21 [facility] Comment on above: Order Comment: Speci men Type: BLOOD SPECIMENOrdering Facility: [facility] Address: [address] [place] [address] Performed By: #### 2 4320-07, ####[facility] LABCLIA [id number] [place] [id number] [place] CNOVon 03-26-2025 CNOV Office Visit (INTMWS ) BERENICE GIVENS ([id number]) 1965 F Date Time Provider Department 03/26/25 [...] presents today for follow up. Recording using AppSpotr software for draft documentation of the visit was discussed with the patient/authorized insurance service representative; all questions welcomed and answered. Patient/authorized insurance service representative agreed to proceed Berenice Givens is [...] echocardiogram in 2020. - Last seen by regional recruiter in October without concern. - Engages in exercise at [employer], using a bike-like machine due to hip [...] - Noted dyspnea at high elevations in [place], attributed to COVID lungs. Anxiety and Depression: [...] times a (more content not included)... Normal [facility] ECG COMPLETEon 03-26-2025 ECG COMPLETE Ventricular Rate : 8 7 BPM Atrial Rate : 87 BPM P-R Interval : 166 ms QRS Duration : 90 ms Q-T Interval : 380 ms QTC Calculation(Bazett) : 457 ms Calculated P [place] : 54 degrees Calculated R [place] : -11 degrees Calculated T [place] : 45 degrees NORMAL SINUS RHYTHM NORMAL ECG Confirmed by ABNER MERCHANT MD ([id number]) on 03/27/2025 5:41:51 PM NAME : BERENICE GIVENS PID : [id number] : 1965 Gender : Female Race : ORD : [id number] Procedure Date : Mar 26 2025 13:27:08 Edit Date : Mar 27 2025 17:41:54 Diagnosis: NORMAL SINUS RHYTHM NORMAL ECG Confirmed by ABNER MERCHANT MD ([id number]) on 03/27/2025 5:41:51 PM Test Reason : Immunizations Location : 185 : [facility] Overread By : ABNER MERCHANT MD Edited By : ABNER MERCHANT MD Referred By : , Acquired by : [id number], Normal [facility] Magnesium [Mass/Vol] 2.1 mg/dL Normal 1.7-2.3 [facility] Comment on above: Order Comment: Speci men Type: BLOOD SPECIMENOrdering Facility: [facility] Address: [address] [place] [address] Performed By: #### 2 4321-2, 85235-9 ####[facility] LABCLIA [id number] [place] [id number] [place] ALT SerPl-cCncon 02-20-2025 ALT [Catalytic activity/Vol] 29 U/L Normal 7-38 [facility] Comment on above: Order Comment: Speci men Type: BLOOD SPECIMENOrdering Facility: [facility] Address: [address] [place] [address] Performed By: #### 4 5066-8, 6, 1919-12 ####[facility] V[facility]IC[facility]CL[facility] [id number] [place] [address] [place] AST SerPl-cCncon 02-20-2025 AST [Catalytic activity/Vol] 34 U/L Normal 13-35 [facility] Comment on above: Order Comment: Speci men Type: BLOOD SPECIMENOrdering Facility: [facility] Address: [address] [place] [address] Performed By: #### 4 5066-8, 1741-10, 1919-12 ####[facility]CL[facility] [id number] [place] [address] [place] CBC panel Auto (Bld)on 02-20 Erythrocyte distribution width (RBC) [Ratio] 11.9 % Normal 11.5-15.0 [facility] Comment on above: Order Comment: Speci men Type: BLOOD SPECIMENOrdering Facility: [facility] Address: [address] [place], [place] [address] Performed By: #### 5 8410-2 ####[facility]CL[facility] [id number] [place] [address] [place] Hematocrit (Bld) [Volume fraction] 39.4 % Normal 36.0-46.0 [facility] Comment on above: Order Comment: Speci men Type: BLOOD SPECIMENOrdering Facility: [facility] Address: [address] [place] [address] Performed By: #### 5 8410-2 ####[facility] [id number] [place] [address] [place] Hemoglobin (Bld) [Mass/Vol] 13.0 g/dL Normal 11.5-15.5 [facility] Comment on above: Order Comment: Speci men Type: BLOOD SPECIMENOrdering Facility: [facility] Address: [address] [place] [address] Performed By: #### 5 8410-2 ####[facility] VENICEZULEIMALIA [id number] [place] [address] [place] MCH (RBC) [Entitic mass] 31.1 pg Normal 26.0-34.0 [facility] Comment on above: Order Comment: Speci men Type: BLOOD SPECIMENOrdering Facility: [facility] Address: [address] [place] [address] Performed By: #### 5 8410-2 ####[facility] [id number] [place] [address] [place] [facility] MCHC (RBC) [Mass/Vol] 33.0 g/dL Normal 30.5-36.0 [facility] Comment on above: Order Comment: Speci men Type: BLOOD SPECIMENOrdering Facility: [facility] Address: [address] [place] [address] Performed By: #### 5 8410-2 ####[facility] [id number] [place] [address] [place] MCV (RBC) [Entitic vol] 94.3 fL Normal 80.0-100.0 [facility] Comment on above: Order Comment: Speci men Type: BLOOD SPECIMENOrdering Facility: [facility] Address: [address] [place] [address] Performed By: #### 5 8410-2 ####[facility]IC[facility]CL[facility] [id number] [place] [address] [place] Nucleated RBC (Bld) [#/Vol] 10*3/uL Normal <0.01 [facility] Comment on above: Order Comment: Speci men Type: BLOOD SPECIMENOrdering Facility: [facility] Address: [address] [place] [address] Performed By: #### 5 8410-2 ####[facility] [id number] [place] [address] [place] Platelet mean volume (Bld) [Entitic vol] 9.2 fL Normal 9.0-12.7 [facility] Comment on above: Order Comment: Speci men Type: BLOOD SPECIMENOrdering Facility: [facility] Address: [address] [place] [address] Performed By: #### 5 8410-2 ####[facility] [id number] [place] [address] [place] Platelets (Bld) [#/Vol] 272 10*3/uL Normal 150-400 [facility] Comment on above: Order Comment: Speci men Type: BLOOD SPECIMENOrdering Facility: [facility] Address: [address] [place] [address] Performed By: #### 5 8410-2 ####[facility] [id number] [place] [address] [place] RBC (Bld) [#/Vol] 4.18 10*6/uL Normal 3.90-5.20 [facility] Comment on above: Order Comment: Speci men Type: BLOOD SPECIMENOrdering Facility: [facility] Address: [address] [place] [address] Performed By: #### 5 8410-2 ####[facility] [id number] [place] [address] [place] WBC (Bld) [#/Vol] 9.54 10*3/uL Normal 3.70-11.00 [facility] Comment on above: Order Comment: Speci men Type: BLOOD SPECIMENOrdering Facility: [facility] Address: [address] [place] [address] Performed By: #### 5 8410-2 ####[facility] VENICENCLINDAA [id number] [place] [address] [place] Creatinine and Glomerular fi ltration rate.predicted panel (S/P/Bld)on 02-20-2025 Creatinine [Mass/Vol] 0.88 mg/dL Normal 0.58-0.96 [facility] Comment on above: Order Comment: Speci men Type: BLOOD SPECIMENOrdering Facility: [facility] Address: [address] [place] [address] Performed By: #### 4 5066-8, 1741-10, 1919-12 ####[facility]IC[facility]CLIA [id number] [place] [address] [place] eGFRcr SerPlBld CKD-EPI 2020 76 mL/min/1.73m??? Normal >=60 [facility] Comment on above: Order Comment: Yuridia mendoza Type: BLOOD SPECIMENOrdering Facility: [facility] Address: [address] [place] [address] Result Comment: Rosana mated Glomerular Filtration Rate [...] Performed By: #### 4 5066-8, 6, 1919-12 ####[facility]CL[facility] [id number] [place] [address] [place] Sacrum-Coccyx min 2 Viewson 02-12-2025 Sacrum-Coccyx min 2 Views [facility] [address] [place] [address] Sacrum-Coccyx min 2 Views MR#: [id number] Acct: [id number] Name: BERENICE GIVENS Rep #: [id number] : 1965 F 59 From: Sal mae MD PCP: Dr. David Chicas MD Status: REG CLI Study: Sacrum-Coccyx min 2 Views Date of Exam: Exam# [id number] Ordering Dr: Elvia Bowers MD PROCEDURE: SACRUM-COCCYX [...] the the lower lumbar spine. Reading Location: [place] [address] CC: Dr. Elvia Bowers MD; Dr. David Chicas MD Handkerchief Maker: Signed [facility] CNOVon 12-25-2024 CNOV Office Visit (INTMWS ) RACHELLEBERENICE ([id number]) 1965 F Date Time Provider Department 12/25/24 [...] recently returned from a bus trip to [facility], which she enjoyed despite the heat. She is planning a trip to [place], [place], in February for a hot air balloon festival to celebrate her 60th birthday. Berenice is due for a mammogram and Pap test in February, with her last screenings performed in February of the previous year by Dr. Boles in [place], which were normal. Social History Tobacco Use [...] esters (LOVAZA) 1 gram capsule MV with Aee-Ahpjzvzp-Uwkmyf (CENTRUM SILVER) 0.4-300-250 mg-mcg-mcg tab Health Maintenance [...] typographical errors. (more content not included)... Normal [facility] CNOVon 11-24-2024 CNOV Office Visit (INTMWS ) BERENICE GIVENS ([id number]) 1965 F Date Time Provider Department 11/24/24 [...] daily f (more content not included)... Normal [facility] CNOVon 11-20-2024 CNOV Office Visit (DEACON ) BERENICE GIVENS ([id number]) 1965 F Date Time Provider Department 11/20/24 1:20 PM FELIX ORNELAS During your visit today, we recorded the following information about you: Pulse Blood pressure Weight 93/minute 132/82 125.2 kg Felix Ornelas MD 11/20/2024 1:35 PM Signed Felix Ornelas MD Interventional Cardiology [address] [place] [address] [phone] Chief Complaint Patient presents with: CARD Follow [...] active and is planning a trip to [facility], which will involve walking. She underwent vertebroplasty, [...] capsule T (more content not included)... Normal [facility] Pulmonary Visit Reporton Pulmonary Visit Report [facility] [employer] [address] [place] [address] OFFICE VISIT Date of Service: 11/14/24 MR#: [id number] Acct: [id number] Name: BERENICE GIVENS Rep #: [id number] : 1965 Provider: NINO Costa Age/Sex: 59/F Location: [facility].PM[facility] Status: Signed Assessment and Plan Assessment and Plan (1) CHATO (obstructive sleep apnea): Status: Chronic Comment: AHI 130 Plan: Deteriorated. Her machine is making a noise, it is greater than 5 years old. It is not functioning properly. She is eligible for replacement device. Ordering a new AutoPap. Return to the office within 90 days for a follow-up rpaj-vl-foeo visit. Plan Details Additional Comments: This note was generated with Monaeo dictation software. It may contain incorrect words, [...] 2018. She does have a greater than 48-qolz-xkey smoking history. Compliance report for the past [...] Intake Visit Reasons: Needs new pap machine Industrial Controls Technician Required: No DME Vendor: [employer] Accompanied by: [...] PO DAILY 03/27/20 11/14/24 History release (Prevacid) jwthpzqu-yrqyfhe-jweq- lutein tablet tab PO 03/27/20 11/14/24 Histor [...] mg PO QDAY 11/14/24 11/14/24 Hi story [facility] Medical History (Reviewed 11/14/24 @ 09:09 by Patricia Costa SPINNING LATHE OPERATOR HYDRAULIC, SPINNING LATHE OPERATOR HYDRAULIC-C) Shingles History of trigger finger Thyroid disorder Lupus Sleep apnea Bronchitis Surgical History (Reviewed 11/14/24 @ 09:09 by Patricia Costa SPINNING LATHE OPERATOR HYDRAULIC, SPINNING LATHE OPERATOR HYDRAULIC-C) History of carpal tunnel release History of cholecystectomy Family History ... [facility] Office Visit (INTMWS ) BERENICE GIVENS ([id number]) 1965 F Date Time Provider Department 10/27/24 2:00 PM MATTIE SOMERS INTMRALY During your visit today, we recorded the [...] emergency room if these occur. Mattie Somers APRN.DEICER REPAIRER 10/27/2024 3:24 PM Signed CC: Patient presents with: Recheck: Cellulitis follow up HPI Berenice Givens is a 59 year old female who presents today for follow up on cat bite. Was treated previously augmentin and doxycycline, but was seen 2 days ago with return of redness tenderness and drainage. Was started on bactrim. Recording using AppSpotr software for draft documentation of the visit was discussed with the patient/authorized insurance service representative; all questions welcomed and answered. Patient/authorized insurance service representative agreed to proceed Cat Bite Infection: [...] daily. Forgot (more content not included)... [facility] (INTMWS ) BERENICE GIVENS ([id number]) 1965 F Date Time Provider Department 10/25/24 12:20 PM OLDER, AMTTIE SEVERINO During your visit today, we recorded the following information about you: Pulse Respiration Blood pressure Weight 80/minute 16/minute 142/78 128.4 kg OlderMattie APRN.DEICER REPAIRER 10/26/2024 7:41 AM Signed CC: Patient presents with: Recheck: 3 month follow up HPI Berenice Givens is a 59 year old female who presents today for routine follow up but recent cat bite she had been treated for is getting red again and starting to drain. Recording using AppSpotr software for draft documentation of the visit was discussed with the patient/authorized insurance service representative; all questions welcomed and answered. Patient/authorized insurance service representative agreed to proceed Cat Bite: - [...] TAKE 2 CAPSULES ONCE DAILY MV with Hle-Jkdjspzj-Vcnmqj (CENTRUM SILVER) 0.4-300-250 mg-mcg-mcg tab Take 1 tablet by mouth once daily. FAMILY HISTORY Problem Relation Age of Onset Diabetes Mother Alzheimer's Diseas (more content not included)... Normal [facility] ALT SerPl-cCncon 10-19-2024 ALT [Catalytic activity/Vol] 39 U/L High 7-38 [facility] Comment on above: Order Comment: Speci men Type: BLOOD SPECIMENOrdering Facility: [facility] Address: [address] [place] [address] Performed By: #### 1 920-8, 08373-5, 1742-6 ####[facility] [id number] [place] [address] [place] JILLIAN AST SerPl-cCncon 10-19-2024 AST [Catalytic activity/Vol] 43 U/L High 13-35 [facility] Comment on above: Order Comment: Speci men Type: BLOOD SPECIMENOrdering Facility: [facility] Address: [address] [place] [address] Performed By: #### 1 920-8, 31588-9, 1742-6 ####[facility] VENICENCLIA [id number] [place] [address] [place] CBC panel Auto (Bld)on 10-19 Erythrocyte distribution width (RBC) [Ratio] 12.3 % Normal 11.5-15.0 [facility] Comment on above: Order Comment: Speci men Type: BLOOD SPECIMENOrdering Facility: [facility] Address: [address] [place] [address] Performed By: #### 5 8410-2 ####[facility]ENCBL[facility] [id number] [place] [address] [place] Hematocrit (Bld) [Volume fraction] 39.0 % Normal 36.0-46.0 [facility] Comment on above: Order Comment: Speci men Type: BLOOD SPECIMENOrdering Facility: [facility] Address: [address] [place] [address] Performed By: #### 5 8410-2 ####[facility] [id number] [place] [address] [place] Hemoglobin (Bld) [Mass/Vol] 12.8 g/dL Normal 11.5-15.5 [facility] Comment on above: Order Comment: Speci men Type: BLOOD SPECIMENOrdering Facility: [facility] Address: [address] [place] [address] Performed By: #### 5 8410-2 ####[facility] [id number] [place] [address] [place] MCH (RBC) [Entitic mass] 30.7 pg Normal 26.0-34.0 [facility] Comment on above: Order Comment: Speci men Type: BLOOD SPECIMENOrdering Facility: [facility] Address: [address] [place] [address] Performed By: #### 5 8410-2 ####[facility] [id number] [place] [address] [place] MCHC (RBC) [Mass/Vol] 32.8 g/dL Normal 30.5-36.0 [facility] Comment on above: Order Comment: Speci men Type: BLOOD SPECIMENOrdering Facility: [facility] Address: [address] [place] [address] Performed By: #### 5 8410-2 ####[facility] [id number] [place] [address] [place] MCV (RBC) [Entitic vol] 93.5 fL Normal 80.0-100.0 [facility] Comment on above: Order Comment: Speci men Type: BLOOD SPECIMENOrdering Facility: [facility] Address: [address] [place] [address] Performed By: #### 5 8410-2 ####[facility] NARINDER [id number] [place] [address] [place] Nucleated RBC (Bld) [#/Vol] 10*3/uL Normal <0.01 [facility] Comment on above: Order Comment: Speci men Type: BLOOD SPECIMENOrdering Facility: [facility] Address: [address] [place] [address] Performed By: #### 5 8410-2 ####[facility] CAMILLEGERINGNCDIRK [id number] [place] [address] [place] Platelet mean volume (Bld) [Entitic vol] 9.0 fL Normal 9.0-12.7 [facility] Comment on above: Order Comment: Speci men Type: BLOOD SPECIMENOrdering Facility: [facility] Address: [address] [place] [address] Performed By: #### 5 8410-2 ####[facility] CAMILLEGERINGMANSOORA [id number] [place] [address] [place] Platelets (Bld) [#/Vol] 241 10*3/uL Normal 150-400 [facility] Comment on above: Order Comment: Speci men Type: BLOOD SPECIMENOrdering Facility: [facility] Address: [address] [place] [address] Performed By: #### 5 8410-2 ####[facility] CAMILLEGERINGNCLIA [id number] [place] [address] [place] RBC (Bld) [#/Vol] 4.17 10*6/uL Normal 3.90-5.20 [facility] Comment on above: Order Comment: Speci men Type: BLOOD SPECIMENOrdering Facility: [facility] Address: [address] [place] [address] Performed By: #### 5 8410-2 ####[facility] VENICENCA [id number] [place] [address] [place] WBC (Bld) [#/Vol] 10.26 10*3/uL Normal 3.70-11.00 [facility] Comment on above: Order Comment: Speci men Type: BLOOD SPECIMENOrdering Facility: [facility] Address: [address] [place] [address] Performed By: #### 5 8410-2 ####[facility] VENICENCLIA [id number] [place] [address] [facility] Creatinine + eGFR Pnl SerPlB ldon 10-19-2024 Creatinine and Glomerular filtration rate.predicted panel (S/P/Bld) 92 mL/min/1.73m??? Normal >=60 [facility] Comment on above: Order Comment: Yuridia mendoza Type: BLOOD SPECIMENOrdering Facility: [facility] Address: [address] [place] [address] Result Comment: Rosana mated Glomerular Filtration Rate [...] actual GFR. Performed By: #### 1 920-8, 39730-5, 1742-6 ####[facility] HOSPITALLIA [id number] [place] [address] [place] Creatinine and Glomerular fi ltration rate.predicted panel (S/P/Bld)on 10-19-2024 Creatinine [Mass/Vol] 0.75 mg/dL Normal 0.58-0.96 [facility] Comment on above: Order Comment: Yuridia men Type: BLOOD SPECIMENOrdering Facility: [facility] Address: [address] [place] [address] Performed By: #### 1 920-8, 64865-3, 1742-6 ####[facility] [id number] [address] Lipid 1996 panelon 5 Cholesterol [Mass/Vol] 180 mg/dL Normal <200 [facility] Comment on above: Order Comment: Speci men Type: BLOOD SPECIMENOrdering Facility: [facility] Address: [address] [place] [address] Result Comment: <200 mg/dL, Desirable 200-239 mg/dL, Borderline high >239 mg/dL, High Performed By: #### 2 4331-1 ####[facility] LABCLIA [id number] [address] [id number] [address] [facility] Cholesterol in HDL [Mass/Vol] 49 mg/dL Normal >39 [facility] Comment on above: Order Comment: Speci men Type: BLOOD SPECIMENOrdering Facility: [facility] Address: [address] [place] [address] Result Comment: 40-5 9 mg/dL, Acceptable >59 mg/dL, High: Negative risk factor for coronary heart disease <40 mg/dL, Low: Positive risk factor for coronary heart disease Performed By: #### 2 4331-1 ####[facility] LABCLIA [id number] [address] [id number] [address] OF [place] Cholesterol in LDL [Mass/Vol] 109 mg/dL High <100 [facility] Comment on above: Order Comment: Speci men Type: BLOOD SPECIMENOrdering Facility: [facility] Address: [address] [place] [address] Result Comment: <100 mg/dL, Optimal 100-129 mg/dL, Near optimal/above optimal 130-159 mg/dL, Borderline high 160-189 mg/dL, High >189 mg/dL, Very high Secondary prevention optimal LDL Cholesterol levels are recommended to be <70 mg/dL LDL cholesterol is calculated using the Pacheco-NIH equation. Performed By: #### 2 4331-1 ####[facility] LABIA [id number] [id number] [place] [address] [facility] Cholesterol in LDL/Cholesterol in HDL [Mass ratio] 2.22 {ratio} Normal <2.54 [facility] Comment on above: Order Comment: Speci men Type: BLOOD SPECIMENOrdering Facility: [facility] Address: [address] [place] [address] Result Comment: Refe pamela: 1. National Cholesterol Education Program ATP III Guideline At-A-Glance Quick Desk Reference: National Heart, Lung, and Blood Rogers. National Institutes of Health. 2001: NIH Publication No. 01-3305. 2. An International Atherosclerosis Society position paper: global recommendations for the management of dyslipidemia: executive summary, Atherosclerosis. 2014: 232(2):410-413. Performed By: #### 2 4331-1 ####[facility] LABIA [id number] [address] [id number] [place] [address] [place] Cholesterol in VLDL [Mass/Vol] 21 mg/dL Normal <30 [facility] Comment on above: Order Comment: Speci men Type: BLOOD SPECIMENOrdering Facility: [facility] Address: [address] [place] [address] Performed By: #### 2 4331-1 ####[facility] LABIA [id number] [address] [id number] [place] [address] [place] Cholesterol non HDL [Mass/Vol] 131 mg/dL High <130 [facility] Comment on above: Order Comment: Speci men Type: BLOOD SPECIMENOrdering Facility: [facility] Address: [address] [place] [address] Result Comment: <130 mg/dL, Optimal 130-159 mg/dL, Near optimal/above optimal 160-189 mg/dL, Borderline high 190-219 mg/dL, High >219 mg/dL, Very high Secondary prevention optimal non HDL Cholesterol levels are recommended to be <100 mg/dL Performed By: #### 2 4331-1 ####[facility] LABCLIA [id number] [address] STATES [facility] [id number] [place] [address] [place] Cholesterol.total/Chol esterol in HDL [Mass ratio] 3.67 {ratio} Normal <5.10 [facility] Comment on above: Order Comment: Speci men Type: BLOOD SPECIMENOrdering Facility: [facility] Address: [address] [place] [address] Performed By: #### 2 4331-1 ####[facility] LABCLIA [id number] [address] STATES OF [facility] [id number] [place] [address] [place] FASTING TIME 14 hrs Normal [facility] Comment on above: Order Comment: Speci men Type: BLOOD SPECIMENOrdering Facility: [facility] Address: [address] [place] [address] Performed By: #### 2 4331-1 ####[facility] LABCLIA [id number] [address] [id number] [address] STATES OF [place] Triglyceride [Mass/Vol] 123 mg/dL Normal <150 [facility] Comment on above: Order Comment: Speci men Type: BLOOD SPECIMENOrdering Facility: [facility] Address: [address] [place] [address] Result Comment: <150 mg/dL, Normal 150-199 mg/dL, Borderline high 200-499 mg/dL, High >499 mg/dL, Very high Performed By: #### 2 4331-1 ####[facility] LABCLIA [id number] [address] STATES OF [facility] [id number] [place] [id number] [place] [address] [place] CNOVon 10-16-2024 CNOV Office Visit (INTMWS ) RACHELLEBERENICE Toña ([id number]) 1965 F Date Time Provider Department 10/16/24 [...] esters (LOVAZA) 1 gram capsule MV with Tvs-Zaaakdnh-Dixxwl (CENTRUM SILVER) 0.4-300-250 mg-mcg-mcg tab doxycycline monohydrate [...] any unintended typographical errors. Recording using ambient [employer] software for draft documentation of the visit was discussed with the patient/authorized insurance service representative; all questions welcomed and answered. Patient/authorized insurance service representative agreed to proceed David Herzog MD, MD 10/16/2024 12:29 PM Signed Allergies As of Date: 10/16/2024 Noted Allergy Reaction L (more content not included)... Normal [facility] Emergency Department Summary on 10-13-2024 Emergency Department Summary [facility] Medical Records Department [address] [place] [address] Emergency Department Summary 10/13/24 MR#: [id number] Acct: [id number] Name: BERENICE GIVENS Rep #: [id number] : 1965 59 From: Anastasiya CHESTER PCP: [...] numbness or tingling. She is right-hand dominant. [facility] Medical History (Updated 10/13/24 @ 21:30 [...] PO DAILY 03/27/20 Unknown H istory (Synthroid) atdwukxw-hnuzfed-rnkj- lutein tablet tab PO 03/27/20 Unknown History [...] Mild Sleepy Verified 10/13/24 20:52 Family History (Reviewed 06/21/24 @ 09:42 by Patricia Costa SPINNING LATHE OPERATOR HYDRAULIC, SPINNING LATHE OPERATOR HYDRAULIC-C) Sister Breast cancer Surgical History History of carpal tunnel release History of cholecystectomy Social History (Reviewed 06/21/24 @ 09:42 by Patricia Costa SPINNING LATHE OPERATOR HYDRAULIC, SPINNING LATHE OPERATOR HYDRAULIC-C) Smoking Status: Former smoker how long ago [...] and Re-Evaluation (more content not included)... Normal [facility] ALT SerPl-cCncon 09-18-2024 ALT [Catalytic activity/Vol] 45 U/L High 7-38 [facility] Comment on above: Order Comment: Speci men Type: BLOOD SPECIMENOrdering Facility: [facility] Address: [address] [place] [address] Performed By: #### 1 742-6, 192-8, 17911-0 ####[facility] LABIA [id number] [place] [address] [place] AST SerPl-cCncon 09-18-2024 AST [Catalytic activity/Vol] 47 U/L High 13-35 [facility] Comment on above: Order Comment: Speci men Type: BLOOD SPECIMENOrdering Facility: [facility] Address: [address] [place] [address] Performed By: #### 1 742-6, 19208, 72471-5 ####[facility] [id number] [place] [address] [place] CBC panel Auto (Bld)on 09-18 Erythrocyte distribution width (RBC) [Ratio] 12.4 % Normal 11.5-15.0 [facility] Comment on above: Order Comment: Speci men Type: BLOOD SPECIMENOrdering Facility: [facility] Address: [address] [place] [address] Performed By: #### 5 8410-2 ####[facility] [id number] [place] [id number] [place] Hematocrit (Bld) [Volume fraction] 41.2 % Normal 36.0-46.0 [facility] Comment on above: Order Comment: Speci men Type: BLOOD SPECIMENOrdering Facility: [facility] Address: [address] [place] [address] Performed By: #### 5 8410-2 ####[facility] CAMILLEGERINGBONIFACIO [id number] [place] [address] [place] Hemoglobin (Bld) [Mass/Vol] 13.5 g/dL Normal 11.5-15.5 [facility] Comment on above: Order Comment: Speci men Type: BLOOD SPECIMENOrdering Facility: [facility] Address: [address] [place] [address] Performed By: #### 5 8410-2 ####[facility] [id number] [place] [address] [place] MCH (RBC) [Entitic mass] 30.8 pg Normal 26.0-34.0 [facility] Comment on above: Order Comment: Speci men Type: BLOOD SPECIMENOrdering Facility: [facility] Address: [address] [place] [address] Performed By: #### 5 8410-2 ####[facility] VENICENCRobert [id number] [place] [address] [place] MCHC (RBC) [Mass/Vol] 32.8 g/dL Normal 30.5-36.0 [facility] Comment on above: Order Comment: Speci men Type: BLOOD SPECIMENOrdering Facility: [facility] Address: [address] [place] [address] Performed By: #### 5 8410-2 ####[facility] VENICENCLIA [id number] [place] [address] [place] MCV (RBC) [Entitic vol] 93.8 fL Normal 80.0-100.0 [facility] Comment on above: Order Comment: Speci men Type: BLOOD SPECIMENOrdering Facility: [facility] Address: [address] [place] [address] Performed By: #### 5 8410-2 ####[facility] MILLTOWNCLIA [id number] [place] [address] [place] Nucleated RBC (Bld) [#/Vol] 10*3/uL Normal <0.01 [facility] Comment on above: Order Comment: Speci men Type: BLOOD SPECIMENOrdering Facility: [facility] Address: [address] [place] [address] Performed By: #### 5 8410-2 ####[facility] VENICENCLIA [id number] [place] [address] [place] Platelet mean volume (Bld) [Entitic vol] 9.3 fL Normal 9.0-12.7 [facility] Comment on above: Order Comment: Speci men Type: BLOOD SPECIMENOrdering Facility: [facility] Address: [address] [place] [address] Performed By: #### 5 8410-2 ####[facility] HOSPITALLIA [id number] [place] [address] [place] Platelets (Bld) [#/Vol] 239 10*3/uL Normal 150-400 [facility] Comment on above: Order Comment: Speci men Type: BLOOD SPECIMENOrdering Facility: [facility] Address: [address] [place] [address] Performed By: #### 5 8410-2 ####[facility] H[facility]PITALWNCLIA [id number] [place] [address] [place] RBC (Bld) [#/Vol] 4.39 10*6/uL Normal 3.90-5.20 [facility] Comment on above: Order Comment: Speci men Type: BLOOD SPECIMENOrdering Facility: [facility] Address: [address] [place] [address] Performed By: #### 5 8410-2 ####[facility] VENICENCLIA [id number] [place] [address] [place] WBC (Bld) [#/Vol] 8.69 10*3/uL Normal 3.70-11.00 [facility] Comment on above: Order Comment: Speci men Type: BLOOD SPECIMENOrdering Facility: [facility] Address: [address] [place] [address] Performed By: #### 5 8410-2 ####[facility] [id number] [place] [address] [place] Creatinine + eGFR Pnl SerPlB ldon 09-18-2024 Creatinine and Glomerular filtration rate.predicted panel (S/P/Bld) 86 mL/min/1.73m??? Normal >=60 [facility] Comment on above: Order Comment: Speci men Type: BLOOD SPECIMENOrdering Facility: [facility] Address: [address] [place] [address] Result Comment: Rosana mated Glomerular Filtration Rate [...] GFR. Performed By: #### 1 742-6, 1920-8, 68746-0 ####[facility] LABCLIA [id number] [place] [address] [place] Creatinine and Glomerular fi ltration rate.predicted panel (S/P/Bld)on 09-18-2024 Creatinine [Mass/Vol] 0.79 mg/dL Normal 0.58-0.96 [facility] Comment on above: Order Comment: Speci men Type: BLOOD SPECIMENOrdering Facility: [facility] Address: [address] [place] [address] Performed By: #### 1 742-6, 1920-8, 89042-7 ####[facility] LABCLIA [id number] [place] [address] [place] ALT SerPl-cCncon 08-25-2024 ALT [Catalytic activity/Vol] 35 U/L Normal 7-38 [facility] Comment on above: Order Comment: Speci men Type: BLOOD SPECIMENOrdering Facility: [facility] Address: [address] [place] [address] Performed By: #### C RET1, 1746, 1919-12 ####[facility]OWNCL[facility] [id number] [place] [address] [place] AST SerPl-cCncon 08-25-2024 AST [Catalytic activity/Vol] 35 U/L Normal 13-35 [facility] Comment on above: Order Comment: Speci men Type: BLOOD SPECIMENOrdering Facility: [facility] Address: [address] [place] [address] Performed By: #### C RET1, 1741-10, 1919-12 ####[facility] VENICEBONIFACIO [id number] [place] [address] [place] CBC panel Auto (Bld)on 08-25 Erythrocyte distribution width (RBC) [Ratio] 12.4 % Normal 11.5-15.0 [facility] Comment on above: Order Comment: Speci men Type: BLOOD SPECIMENOrdering Facility: [facility] Address: [address] [place] [address] Performed By: #### 5 8410-2 ####[facility] VENICEBONIFACIO [id number] [place] [address] [place] Hematocrit (Bld) [Volume fraction] 40.9 % Normal 36.0-46.0 [facility] Comment on above: Order Comment: Speci men Type: BLOOD SPECIMENOrdering Facility: [facility] Address: [address] [place] [address] Performed By: #### 5 8410-2 ####[facility] VENICEBONIFACIO [id number] [place] [address] [place] Hemoglobin (Bld) [Mass/Vol] 13.2 g/dL Normal 11.5-15.5 [facility] Comment on above: Order Comment: Speci men Type: BLOOD SPECIMENOrdering Facility: [facility] Address: [address] [place] [address] Performed By: #### 5 8410-2 ####[facility] [id number] [place] [address] [place] MCH (RBC) [Entitic mass] 30.4 pg Normal 26.0-34.0 [facility] Comment on above: Order Comment: Speci men Type: BLOOD SPECIMENOrdering Facility: [facility] Address: [address] [place] [address] Performed By: #### 5 8410-2 ####[facility] [id number] [place] [address] [place] MCHC (RBC) [Mass/Vol] 32.3 g/dL Normal 30.5-36.0 [facility] Comment on above: Order Comment: Speci men Type: BLOOD SPECIMENOrdering Facility: [facility] Address: [address] [place] [address] Performed By: #### 5 8410-2 ####[facility] [id number] [place] [address] [place] MCV (RBC) [Entitic vol] 94.2 fL Normal 80.0-100.0 [facility] Comment on above: Order Comment: Speci men Type: BLOOD SPECIMENOrdering Facility: [facility] Address: [address] [place] [address] Performed By: #### 5 8410-2 ####[facility] [id number] [place] [address] [place] Nucleated RBC (Bld) [#/Vol] 10*3/uL Normal <0.01 [facility] Comment on above: Order Comment: Speci men Type: BLOOD SPECIMENOrdering Facility: [facility] Address: [address] [place] [address] Performed By: #### 5 8410-2 ####[facility] VENICENCLIA [id number] [place] [address] [place] Platelet mean volume (Bld) [Entitic vol] 9.4 fL Normal 9.0-12.7 [facility] Comment on above: Order Comment: Speci men Type: BLOOD SPECIMENOrdering Facility: [facility] Address: [address] [place] [address] Performed By: #### 5 8410-2 ####[facility] VENICENCBLUE [facility] [id number] [place] [address] [place] Platelets (Bld) [#/Vol] 230 10*3/uL Normal 150-400 [facility] Comment on above: Order Comment: Speci men Type: BLOOD SPECIMENOrdering Facility: [facility] Address: [address] [place] [address] Performed By: #### 5 8410-2 ####[facility] VENICENCA [id number] [place] [address] [place] RBC (Bld) [#/Vol] 4.34 10*6/uL Normal 3.90-5.20 [facility] Comment on above: Order Comment: Speci men Type: BLOOD SPECIMENOrdering Facility: [facility] Address: [address] [place] [address] Performed By: #### 5 8410-2 ####[facility] VENICENCLIA [id number] [place] [address] [place] WBC (Bld) [#/Vol] 7.56 10*3/uL Normal 3.70-11.00 [facility] Comment on above: Order Comment: Yuridia mendoza Type: BLOOD SPECIMENOrdering Facility: [facility] Address: [facility][note 3] [place] [address] Performed By: #### 5 8410-2 ####[facility] VENICEMANSOOR [id number] [place] [address] [place] CREATININE BLDon 08-25-2024 Creatinine [Mass/Vol] 0.85 mg/dL Normal 0.58-0.96 [facility] Comment on above: Order Comment: Speclevar mendoza Type: BLOOD SPECIMENOrdering Facility: [facility] Address: [address] [place] [address] [place] [address] Performed By: #### C RET1, 1741-10, 1919-12 ####[facility] [id number] [address] Creatinine and Glomerular filtration rate.predicted panel (S/P/Bld) 79 mL/min/1.73m??? Normal >=60 [facility] Comment on above: Order Comment: Yuridia mendoza Type: BLOOD SPECIMENOrdering Facility: [facility] Address: [facility][note 3] [place] [address] Result Comment: Rosana mated Glomerular Filtration Rate [...] Performed By: #### C RET1, 1741-10, 1919-12 ####[facility] [id number] [address] [facility] CNOVon 07-27-2024 CNOV Office Visit (INTMWS ) BERENICE GIVENS ([id number]) 1965 F Date Time Provider Department 07/27/24 11:20 AM MATTIE SOMERS During your visit today, we recorded the following information about you: Pulse Respiration Blood pressure Weight 79/minute 16/minute 136/80 130.2 kg Mattie Somers APRN.DEICER REPAIRER 07/27/2024 2:44 PM Signed CC: Patient presents [...] TAKE 2 CAPSULES ONCE DAILY MV with Hau-Nbzccrre-Icrbfe (CENTRUM SILVER) 0.4-300-250 mg-mcg-mcg tab Take 1 [...] good Judgm (more content not included)... Normal [facility] ALT SerPl-cCncon 07-24-2024 ALT [Catalytic activity/Vol] 56 U/L High 7-38 [facility] Comment on above: Order Comment: Speci men Type: BLOOD SPECIMENOrdering Facility: [facility] Address: [address] [place] [address] Performed By: #### 1 742-6, 1919-12, CRET1 ####[facility] [id number] [place] [address] [place] AST SerPl-cCncon 07-24-2024 AST [Catalytic activity/Vol] 52 U/L High 13-35 [facility] Comment on above: Order Comment: Speci men Type: BLOOD SPECIMENOrdering Facility: [facility] Address: [address] [place] [address] Performed By: #### 1 742-6, 1919-12, CRET1 ####[facility] - VENICEZULEIMALIA [id number] [place] [address] [place] CBC panel Auto (Bld)on 07-24 Erythrocyte distribution width (RBC) [Ratio] 12.5 % Normal 11.5-15.0 [facility] Comment on above: Order Comment: Speci men Type: BLOOD SPECIMENOrdering Facility: [facility] Address: [address] [place] [address] Performed By: #### 5 8410-2 ####[facility] VENICEBONIFACIO [id number] [place] [address] [place] Hematocrit (Bld) [Volume fraction] 40.7 % Normal 36.0-46.0 [facility] Comment on above: Order Comment: Speci men Type: BLOOD SPECIMENOrdering Facility: [facility] Address: [address] [place] [address] Performed By: #### 5 8410-2 ####[facility] VENICEBONIFACIO [id number] [place] [address] [place] Hemoglobin (Bld) [Mass/Vol] 13.2 g/dL Normal 11.5-15.5 [facility] Comment on above: Order Comment: Speci men Type: BLOOD SPECIMENOrdering Facility: [facility] Address: [address] [place] [address] Performed By: #### 5 8410-2 ####[facility] VENICEBONIFACIO [id number] [place] [address] [place] MCH (RBC) [Entitic mass] 30.6 pg Normal 26.0-34.0 [facility] Comment on above: Order Comment: Speci men Type: BLOOD SPECIMENOrdering Facility: [facility] Address: [address] [place] [address] Performed By: #### 5 8410-2 ####[facility] - VENICEMANSOORA [id number] [place] [address] [place] MCHC (RBC) [Mass/Vol] 32.4 g/dL Normal 30.5-36.0 [facility] Comment on above: Order Comment: Speci men Type: BLOOD SPECIMENOrdering Facility: [facility] Address: [address] [place] [address] Performed By: #### 5 8410-2 ####[facility] VENICENCLIA [id number] [place] [address] [place] MCV (RBC) [Entitic vol] 94.4 fL Normal 80.0-100.0 [facility] Comment on above: Order Comment: Speci men Type: BLOOD SPECIMENOrdering Facility: [facility] Address: [address] [place] [address] Performed By: #### 5 8410-2 ####[facility] [id number] [place] [address] [place] Nucleated RBC (Bld) [#/Vol] 10*3/uL Normal <0.01 [facility] Comment on above: Order Comment: Speci men Type: BLOOD SPECIMENOrdering Facility: [facility] Address: [address] [place] [address] Performed By: #### 5 8410-2 ####[facility] [id number] [place] [address] [place] Platelet mean volume (Bld) [Entitic vol] 9.6 fL Normal 9.0-12.7 [facility] Comment on above: Order Comment: Speci men Type: BLOOD SPECIMENOrdering Facility: [facility] Address: [address] [place] [address] Performed By: #### 5 8410-2 ####[facility] [id number] [place] [address] [place] Platelets (Bld) [#/Vol] 224 10*3/uL Normal 150-400 [facility] Comment on above: Order Comment: Speci men Type: BLOOD SPECIMENOrdering Facility: [facility] Address: [address] [place] [address] Performed By: #### 5 8410-2 ####[facility] [id number] [place] [address] [place] RBC (Bld) [#/Vol] 4.31 10*6/uL Normal 3.90-5.20 [facility] Comment on above: Order Comment: Speci men Type: BLOOD SPECIMENOrdering Facility: [facility] Address: [address] [place] [address] Performed By: #### 5 8410-2 ####[facility] [id number] [place] [address] [place] WBC (Bld) [#/Vol] 8.44 10*3/uL Normal 3.70-11.00 [facility] Comment on above: Order Comment: Speci men Type: BLOOD SPECIMENOrdering Facility: [facility] Address: [address] [place] [address] Performed By: #### 5 8410-2 ####[facility] [id number] [place] [address] [place] CREATININE BLDon 07-24-2024 Creatinine [Mass/Vol] 0.85 mg/dL Normal 0.58-0.96 [facility] Comment on above: Order Comment: Speci men Type: BLOOD SPECIMENOrdering Facility: [facility] Address: [address] [place] [address] Performed By: #### 1 742-6, 1920-8, CRET1 ####[facility]IT[facility] [id number] [place] [address] [place] Creatinine and Glomerular filtration rate.predicted panel (S/P/Bld) 79 mL/min/1.73m??? Normal >=60 [facility] Comment on above: Order Comment: Speci men Type: BLOOD SPECIMENOrdering Facility: [facility] Address: [address] [place] [address] Result Comment: Rosana mated Glomerular Filtration Rate [...] Performed By: #### 1 742-6, 1920-8, CRET1 ####[facility] ROMEO BARCENAS [id number] [address] [place] Bam 06-29-2024 ELDERN Telephone (GOLDWS) BERENICE GIVENS ([id number]) 1965 F Date Time Provider Department 06/29/24 MATTIE SOMERS During your visit today, we recorded the following information about you: Mattie Somers APRN.DEICER REPAIRER 06/29/2024 9:49 AM Signed Blood work overall in acceptable ranges. Does she want to start wellbutrin as discussed in appointment? This is the daily pill antidepressant we use for weight loss that increased motivation and decreases appetite. If so, what pharmacy? Thank you Mattie Smoers APRN.DEICER REPAIRER Staci Osorio MA 06/29/2024 10:23 AM Signed [...] 2 CAPSULES ONCE DAILY - MV with Dgi-Kbqrkeaw-Sxlvgz (CENTRUM SILVER) 0.4-300-250 mg-mcg-mcg tab Take 1 [...] Status:Closed by MATTIE SOMERS on 06/30/24 Normal [facility] 25(OH)D3 SerPl-mCncon 2024 25-hydroxyvitamin D3 [Mass/Vol] 81.7 ng/mL High 31.0-80.0 [facility] Comment on above: Order Comment: Speci men Type: BLOOD SPECIMENOrdering Facility: [facility] Address: [address] [place] [address] Performed By: #### 1 989-3 ####[facility] LABCLIA [id number] [address] [address] [place] CNOVon 06-26-2024 CNOV Office Visit (INTMWS ) BERENICE GIVENS ([id number]) 1965 F Date Time Provider Department 06/26/24 11:00 AM LIZBET MATTIE INTMWS During your visit today, we recorded the following information about you: Pulse Respiration Blood pressure Weight 78/minute 16/minute 134/82 131.5 kg Lizbet CLIFTON Phelps.DEICER REPAIRER 06/26/2024 12:16 PM Signed CC: Patient presents [...] TAKE 2 CAPSULES ONCE DAILY MV with Ngv-Cwunkviu-Lzgmdw (CENTRUM SILVER) 0.4-300-250 mg-mcg-mcg tab Take 1 [...] Vaping Use (more content not included)... Normal [facility] HbA1c (Bld)on 06-26-2024 Average glucose Estimated from glycated hemoglobin (Bld) [Mass/Vol] 111 mg/dL Normal [facility] Comment on above: Order Comment: Yuridia mendoza Type: BLOOD SPECIMENOrdering Facility: [facility] Address: [address] [place] [address] Result Comment: eAG: (Estimated average glucose) is a calculated value from HgbA1c and is insurance service representative of the average blood glucose level in the last 2-3 month period. Performed By: #### 5 5454-3 ####[facility] LABCLIA [id number] [facility] [id number] [place] [address] [place] HbA1c (Bld) [Mass fraction] 5.5 % Normal 4.3-5.6 [facility] Comment on above: Order Comment: Yuridia mendoza Type: BLOOD SPECIMENOrdering Facility: [facility] Address: [address] [place] [address] Result Comment: Amer [place] Diabetes Association guidelines indicate that patients with HgbA1c in the range 5.7-6.4% are at increased risk for development of diabetes, and intervention by lifestyle modification may be beneficial. HgbA1c greater or equal to 6.5% is considered diagnostic of diabetes. Performed By: #### 5 5454-3 ####[facility] LABCLIA [id number] [place] [address] [place] T3Free SerPl-mCncon 06-26-19 25 Free T3 [Mass/Vol] 2.6 pg/mL Normal 2.3-4.1 [facility] Comment on above: Order Comment: Speci men Type: BLOOD SPECIMENOrdering Facility: [facility] Address: [address] [place] [address] Performed By: #### 2 132-9, 3051-0, 7, 6-3 ####[facility] LABIA [id number] [place] [address] [place] T4 Free SerPl-mCncon 025 Free T4 [Mass/Vol] 1.1 ng/dL Normal 0.9-1.7 [facility] Comment on above: Order Comment: Speci men Type: BLOOD SPECIMENOrdering Facility: [facility] Address: [address] [place] [address] Performed By: #### 2 132-9, 3051-0, 7, 3015-3 ####[facility] LABIA [id number] [place] [address] [place] TSH SerPl-aCncon 06-26-2024 TSH Qn 2.470 m[IU]/L Normal 0.270-4.200 [facility] Comment on above: Order Comment: Speci men Type: BLOOD SPECIMENOrdering Facility: [facility] Address: [address] [place] [address] Performed By: #### 2 132-9, 3051-0, 7, 6-3 ####[facility] LABCLIA [id number] [place] [address] [place] Vit B12 SerPl-mCncon 025 Cobalamin (Vitamin B12) [Mass/Vol] 575 pg/mL Normal 232-1245 [facility] Comment on above: Order Comment: Speci men Type: BLOOD SPECIMENOrdering Facility: [facility] Address: [address] [place] [address] Performed By: #### 2 132-9, 3051-0, 3024-7, 3016-3 ####[facility] LABCLIA [id number] [place] [id number] [place] ALT SerPl-cCncon 06-22-2024 ALT [Catalytic activity/Vol] 52 U/L High 7-38 [facility] Comment on above: Order Comment: Speci men Type: BLOOD SPECIMENOrdering Facility: [facility] Address: [address] [place] [address] Performed By: #### 1 920-8, CRET1, 1742-6 ####[facility] VENICEBONIFACIO [id number] [place] [address] [place] AST SerPl-cCncon 06-22-2024 AST [Catalytic activity/Vol] 48 U/L High 13-35 [facility] Comment on above: Order Comment: Speci men Type: BLOOD SPECIMENOrdering Facility: [facility] Address: [address] [place] [address] Performed By: #### 1 920-8, CRET1, 1742-6 ####[facility] VENICEBONIFACIO [id number] [place] [address] [place] CBC panel Auto (Bld)on 06-22 Erythrocyte distribution width (RBC) [Ratio] 11.9 % Normal 11.5-15.0 [facility] Comment on above: Order Comment: Speci men Type: BLOOD SPECIMENOrdering Facility: [facility] Address: [address] [place] [address] Performed By: #### 5 8410-2 ####[facility] VENICEBONIFACIO [id number] [place] [address] [place] Hematocrit (Bld) [Volume fraction] 43.0 % Normal 36.0-46.0 [facility] Comment on above: Order Comment: Speci men Type: BLOOD SPECIMENOrdering Facility: [facility] Address: [address] [place] [address] Performed By: #### 5 8410-2 ####[facility] VENICEBONIFACIO [id number] [place] [address] [place] Hemoglobin (Bld) [Mass/Vol] 13.9 g/dL Normal 11.5-15.5 [facility] Comment on above: Order Comment: Speci men Type: BLOOD SPECIMENOrdering Facility: [facility] Address: [address] [place] [address] Performed By: #### 5 8410-2 ####[facility] VENICENCDIRK [id number] [place] [address] [place] MCH (RBC) [Entitic mass] 30.0 pg Normal 26.0-34.0 [facility] Comment on above: Order Comment: Speci men Type: BLOOD SPECIMENOrdering Facility: [facility] Address: [address] [place] [address] Performed By: #### 5 8410-2 ####[facility] VENICENCLINDAA [id number] [place] [address] [place] MCHC (RBC) [Mass/Vol] 32.3 g/dL Normal 30.5-36.0 [facility] Comment on above: Order Comment: Speci men Type: BLOOD SPECIMENOrdering Facility: [facility] Address: [address] [place] [address] Performed By: #### 5 8410-2 ####[facility] VENICENCLIA [id number] [place] [address] [place] MCV (RBC) [Entitic vol] 92.9 fL Normal 80.0-100.0 [facility] Comment on above: Order Comment: Speci men Type: BLOOD SPECIMENOrdering Facility: [facility] Address: [address] [place] [address] Performed By: #### 5 8410-2 ####[facility]ENC[facility] [id number] [place] [address] [place] Nucleated RBC (Bld) [#/Vol] 10*3/uL Normal <0.01 [facility] Comment on above: Order Comment: Speci men Type: BLOOD SPECIMENOrdering Facility: [facility] Address: [address] [place] [address] Performed By: #### 5 8410-2 ####[facility] [id number] [place] [address] [place] Platelet mean volume (Bld) [Entitic vol] 9.5 fL Normal 9.0-12.7 [facility] Comment on above: Order Comment: Speci men Type: BLOOD SPECIMENOrdering Facility: [facility] Address: [address] [place] [address] Performed By: #### 5 8410-2 ####[facility] [id number] [place] [address] [place] Platelets (Bld) [#/Vol] 308 10*3/uL Normal 150-400 [facility] Comment on above: Order Comment: Speci men Type: BLOOD SPECIMENOrdering Facility: [facility] Address: [address] [place] [address] Performed By: #### 5 8410-2 ####[facility] [id number] [place] [address] [place] RBC (Bld) [#/Vol] 4.63 10*6/uL Normal 3.90-5.20 [facility] Comment on above: Order Comment: Speci men Type: BLOOD SPECIMENOrdering Facility: [facility] Address: [address] [place], [place] [address] Performed By: #### 5 8410-2 ####[facility] [id number] [place] [address] [place] WBC (Bld) [#/Vol] 10.37 10*3/uL Normal 3.70-11.00 [facility] Comment on above: Order Comment: Speci men Type: BLOOD SPECIMENOrdering Facility: [facility] Address: [address] [place] [address] Performed By: #### 5 8410-2 ####[facility] [id number] [place] [address] [place] CREATININE BLDon 06-22-2024 Creatinine [Mass/Vol] 0.72 mg/dL Normal 0.58-0.96 [facility] Comment on above: Order Comment: Speci men Type: BLOOD SPECIMENOrdering Facility: [facility] Address: [address] [place] [address] Performed By: #### 1 920-8, CRET1, 1742-6 ####[facility] [id number] [place] [address] [place] Creatinine and Glomerular filtration rate.predicted panel (S/P/Bld) 96 mL/min/1.73m??? Normal >=60 [facility] Comment on above: Order Comment: Speci men Type: BLOOD SPECIMENOrdering Facility: [facility] Address: [address] [place] [address] Result Comment: Ros[place] mated Glomerular Filtration Rate [...] Performed By: #### 1 920-8, CRET1, 1742-6 ####[facility] [id number] [place] [address] [place] Pulmonary Visit Reporton Pulmonary Visit Report [facility] [address] [place] [address] OFFICE VISIT Date of Service: 06/21/24 MR#: [id number] Acct: [id number] Name: BERENICE GIVENS Rep #: [id number] : 1965 Provider: NINO Costa Age/Sex: 59/F Location: [facility].PMW Status: Signed Assessment and Plan Assessment and [...] 2018. She does have a greater than 41-spzt-eipk smoking history. 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 Normal [facility] Basic metabolic 2000 panelon 06-15-2024 Anion gap [Moles/Vol] 9 mmol/L Normal 8-15 [facility] Comment on above: Order Comment: Speci men Type: BLOOD SPECIMENOrdering Facility: [facility] Address: [address] [place] [address] Performed By: #### 2 4321-2 ####[facility] [id number] [place] [address] [place] Calcium [Mass/Vol] 10.3 mg/dL High 8.5-10.2 [facility] Comment on above: Order Comment: Speci men Type: BLOOD SPECIMENOrdering Facility: [facility] Address: [address] [place] [address] Performed By: #### 2 4321-2 ####[facility] [id number] [place] [address] [place] Chloride [Moles/Vol] 104 mmol/L Normal 98-107 [facility] Comment on above: Order Comment: Speci men Type: BLOOD SPECIMENOrdering Facility: [facility] Address: [address] [place], [place] [address] Performed By: #### 2 4321-2 ####[facility] [id number] [place] [address] [place] [facility] CO2 [Moles/Vol] 29 mmol/L Normal 22-30 [facility] Comment on above: Order Comment: Speci men Type: BLOOD SPECIMENOrdering Facility: [facility] Address: [address] [place] [address] Performed By: #### 2 4321-2 ####[facility] [id number] [address] [place] Creatinine [Mass/Vol] 0.78 mg/dL Normal 0.58-0.96 [facility] Comment on above: Order Comment: Speci men Type: BLOOD SPECIMENOrdering Facility: [facility] Address: [address] [place] [address] Performed By: #### 2 4321-2 ####[facility] [id number] [address] Creatinine and Glomerular filtration rate.predicted panel (S/P/Bld) 88 mL/min/1.73m??? Normal >=60 [facility] Comment on above: Order Comment: Speci men Type: BLOOD SPECIMENOrdering Facility: [facility] Address: [address] [place] [address] Result Comment: Ros[place] mated Glomerular Filtration Rate [...] actual GFR. Performed By: #### 2 4321-2 ####[facility]ITALWNCLIA [id number] [place] [address] [place] Glucose [Mass/Vol] 121 mg/dL High 74-99 [facility] Comment on above: Order Comment: Speci men Type: BLOOD SPECIMENOrdering Facility: [facility] Address: [address] [place] [address] Result Comment: The [place] Diabetes Association (ADA) provides guidance for cutoff [...] Standards of Medical Care in Diabetes 2016, [place] Diabetes Association. Diabetes Care. 2016.39(Suppl 1). Performed By: #### 2 4321-2 ####[facility] MILLTOWNCLIA [id number] [place] [address] [place] Potassium [Moles/Vol] 4.1 mmol/L Normal 3.7-5.1 [facility] Comment on above: Order Comment: Speci men Type: BLOOD SPECIMENOrdering Facility: [facility] Address: [address] [place], [place] [address] Performed By: #### 2 4321-2 ####[facility]ITALWMOLIA [id number] [place] [address] [place] Sodium [Moles/Vol] 142 mmol/L Normal 136-144 [facility] Comment on above: Order Comment: Speci men Type: BLOOD SPECIMENOrdering Facility: [facility] Address: [address] [place], [place] [address] Performed By: #### 2 4321-2 ####[facility]ITALWNCLIA [id number] [place] [address] [place] Urea nitrogen [Mass/Vol] 18 mg/dL Normal 7-21 [facility] Comment on above: Order Comment: Speci men Type: BLOOD SPECIMENOrdering Facility: [facility] Address: [address] [place] [address] Performed By: #### 2 4321-2 ####[facility] [id number] [place] [address] [place] Spine Cervical (Routine)on 0 06-05-2024 Spine Cervical (Routine) [facility] Services [address] [place] [address] Spine Cervical (Routine) MR#: [id number] Acct: [id number] Name: BERENICE GIVENS Rep #: [id number] : 1965 F 59 From: Tee Merrill MD PCP: Dr. David Chicas MD Status: REG CLI Study: Spine Cervical (Routine) Date of Exam: Exam# [id number] Ordering Dr: Elvia Bowers [place] [id number] STUDY: MRI CERVICAL SPINE WITHOUT CONTRAST REASON [...] Elvia Bowers MD; Dr. David Chicas MD Handkerchief Maker: Signed [facility] 05-19-2024 [facility] Telephone (LittleLives) BERENICE GIVENS ([id number]) 1965 F Date Time Provider Department 05/19/24 [...] 2 CAPSULES ONCE DAILY - MV with Onj-Jligeayf-Ljbcfe (CENTRUM SILVER) 0.4-300-250 mg-mcg-mcg tab Take 1 [...] Status:Closed by KESHIA GIVENS on 05/19/24 Normal [facility] No Panel Informationon 05-18 IMPRESSION: Minimal active synovitis of the wrists, multiple bilateral MCP joints, right PIP joints and left second and third PIP joints. No tenosynovitis in either hand or wrist. Handkerchief Maker: PSCB Transcribe Date/Time: May 18 2024 1:16P Dictated by : SARA HOUSER MD This examination was interpreted and the report reviewed and electronically signed by: SARA HOUSER MD on May 18 2024 1:56PM [facility] DIVISION OF RADIOLOGY Radiology Study observation (narrative) [facility] No Panel InformationOrdered By: Ccf Provider on 05-18-2024 [facility] US HAND/WRIST SYNOVIAL SCREE N LTon 05-18-2024 [...] No tenosynovitis in either hand or wrist. Handkerchief Maker: LINDA Transcribe Date/Time: May 18 2024 1:16P Dictated by : SARA HOUSER MD This examination was interpreted and the report reviewed and electronically signed by: SARA HOUSER MD on May 18 2024 1:56PM EST [id number] Normal [facility] US HAND/WRIST SYNOVIAL SCREE N RTon 05-18-2024 [...] No tenosynovitis in either hand or wrist. Handkerchief Maker: [facility] Transcribe Date/Time: May 18 2024 1:16P Dictated by : SARA HOUSER MD This examination was interpreted and the report reviewed and electronically signed by: SARA HOUSER MD on May 18 2024 1:56PM EST [id number] Normal [facility] US Upper extremity - lefton 05-18-2024 * * *Final Report* * * DATE OF EXAM: May 18 2024 1:15PM [facility] 1198 - US HAND/WRIST SYNOVIAL SCREEN LT / PROCEDURE REASON: Pain in joint, multiple sites * * * * Physician Interpretation * * * * [facility]_US SYNOVITIS SCREENING ULTRASOUND OF THE HANDS AND [...] DATE OF EXAM: May 18 2024 1:15PM [facility] 1198 - US HAND/WRIST SYNOVIAL SCREEN LT / PROCEDURE REASON: Pain in joint, multiple sites * * * * Physician Interpretation * * * * [facility] SYNOVITIS SCREENING ULTRASOUND OF THE HANDS AND [...] No tenosynovitis in either hand or wrist. Handkerchief Maker: [employer] Transcribe Date/Time: May 18 2024 1:16P Dictated by : SARA HOUSER MD This examination was interpreted and the report reviewed and electronically signed by: SARA HOUSER MD on May 18 2024 1:56PM [facility] US Upper extremity - righton 05-18-2024 * * *Final Report* * * DATE OF EXAM: May 18 2024 1:00PM [facility] 1197 - US HAND/WRIST SYNOVIAL SCREEN RT / PROCEDURE REASON: Pain in joint, multiple sites * * * * Physician Interpretation * * * * [facility]_US SYNOVITIS SCREENING ULTRASOUND OF THE HANDS AND [...] Minimal. OTHER: None. DIVISION OF RADIOLOGY Provider, [facility] - 05/18/2024 * * *Final Report* * * DATE OF EXAM: May 18 2024 1:00PM [facility] 1197 - US HAND/WRIST SYNOVIAL SCREEN RT [...] No tenosynovitis in either hand or wrist. Handkerchief Maker: LINDA Transcribe Date/Time: May 18 2024 1:16P Dictated by : SARA HOUSER MD This examination was interpreted and the report reviewed and electronically signed by: SARA HOUSER MD on May 18 2024 1:56PM EST [facility] Low Dose CT Lung Screeningon 04-17-[address] Lung Screening [facility] Imaging Services [address] [place] [id number] Lung Screening MR#: [id number] Acct: [id number] Name: BERENICE GIVENS Rep #: [id number] : 1965 F 59 From: Enrique Lay MD PCP: Dr. David Chicas MD Status: [facility] Study: Low Dose CT Lung Screening Date of Exam: 04/17 Exam# [id number] Ordering Dr: Patricia Costa SPINNING LATHE OPERATOR HYDRAULIC SPINNING LATHE OPERATOR HYDRAULIC-C [id number] EXAM: CT CHEST, LUNG CANCER SCREENING WITHOUT [...] CC: NINO Costa; Dr. David Chicas MD Handkerchief Maker: Signed [facility] CNOVon 04-04-2024 [facility] Office Visit (FAMPWS ) BERENICE GIVENS ([id number]) 1965 F Date Time Provider Department 04/04/24 [...] TAKE 2 CAPSULES ONCE DAILY MV with Ecx-Egzqahqt-Bzaeui (CENTRUM SILVER) 0.4-300-250 mg-mcg-mcg tab Take 1 [...] gabapentin (NE (more content not included)... Normal [facility] Bam 04-04-2024 [facility] Telephone (INTMWS) BERENICE GIVENS ([id number]) 1965 F Date Time Provider Department 04/04/24 DAVID CHICAS During your visit today, we recorded the following information about you: Dennise Palomares RN 04/04/2024 1:59 PM Signed Patient calls and states that she was seen in [facility] care on 04/01/2024 and was diagnosed [...] Date Reviewed: 04/04/2024 Reviewed by: Eddie Wilson APRN.DEICER REPAIRER - Fully Assessed Reason for Visit: Patient [...] 2 CAPSULES ONCE DAILY - MV with Ejy-Rskqewvi-Rfpock (CENTRUM SILVER) 0.4-300-250 mg-mcg-mcg tab Take 1 [...] Status:Closed by DENNISE PALOMARES on 04/04/24 Normal [facility] CNOVon 04-01-2024 CNOV Office Visit (UCWSTR ) BERENICE GIVENS ([id number]) 1965 F Date Time Provider Department 04/01/24 11:00 AM ANNY IQBAL UCWSTR During your visit today, we recorded the following information about you: Temperature Pulse Respiration Blood pressure 98.4 degrees 88/minute 16/minute 142/82 Weight 132 kg Anny Iqbal PA-C 04/01/2024 12:21 PM Signed This note was created using [employer]. Subjective Berenice Toña Givens is a 59 [...] ONCE DAILY 180 capsule 3 MV with Eyw-Qoxmmjzn-Uxojiv (CENTRUM SILVER) 0.4-300-250 mg-mcg-mcg tab Take 1 [...] Findings: Ra (more content not included)... Normal [facility] CBC panel Auto (Bld)on 03-27 Erythrocyte distribution width (RBC) [Ratio] 12.2 % 11.5 - 15.0 % [facility] Hematocrit (Bld) [Volume fraction] 40.8 % 36.0 - 46.0 % [facility] Hemoglobin (Bld) [Mass/Vol] 13.1 g/dL 11.5 - 15.5 g/dL [facility] Interpretation and review of laboratory results Normal [facility] MCH (RBC) [Entitic mass] 30.3 pg 26.0 - 34.0 pg [facility] MCHC (RBC) [Mass/Vol] 32.1 g/dL 30.5 - 36.0 g/dL [facility] MCV (RBC) [Entitic vol] 94.4 fL 80.0 - 100.0 fL [facility] Nucleated RBC (Bld) [#/Vol] NINF [facility] Platelet mean volume (Bld) [Entitic vol] 9.8 fL 9.0 - 12.7 fL [facility] Platelets (Bld) [#/Vol] 269 10*3/uL [facility] RBC (Bld) [#/Vol] 4.32 10*6/uL 3.90 - 5.2 0 m/uL [facility] WBC (Bld) [#/Vol] 9.53 10*3/uL [facility] MR Lumbar spine WO contrasto n 10-27-2023 [...] and assume there are 5 lumbar-type vertebrae. Handkerchief Maker: [email or web address] Transcribe Date/Time: Oct 27 2023 6:17P Dictated by : NELLY URBINA MD This examination was interpreted and the report reviewed and electronically signed by: NELLY URBINA MD on Oct 27 2023 6:20PM [facility] DIVISION OF RADIOLOGY * * *Final Report* * * DATE OF EXAM: Oct 27 2023 3:17PM [facility] 0303 - MRI LUMBAR SPINE WO IVCON [...] within normal limits. DIVISION OF RADIOLOGY Provider, [facility] - 10/27/2023 * * *Final Report* * [...] and assume there are 5 lumbar-type vertebrae. Handkerchief Maker: [email or web address] Transcribe Date/Time: Oct 27 2023 6:17P Dictated by : NELLY URBINA MD This examination was interpreted and the report reviewed and electronically signed by: NELLY URBINA MD on Oct 27 2023 6:20PM EST [facility] Radiology Study observation (narrative) [facility] MR Lumbar spine WO contrastO rdered By: Ccf Provider on 10-27-2023 [facility] Large Joint Arthro/Inj: L kn ee jointon 09-23-2023 Kusum Block PA -C 09/23/2023 1:59 PM Large Joint Arthro/Inj: L knee joint Informed Consent Consent Obtained: Verbal [place] Protocol A moment to CARE was completed. [...] equipment, possible retained foreign bodies accounted for. [facility] HbA1c (Bld)on 02-09-2023 Average glucose Estimated from glycated hemoglobin (Bld) [Mass/Vol] 108 mg/dL [facility] HbA1c (Bld) [Mass fraction] 5.4 % 4.3 - 5.6 % [facility] TSH BLDon 02-09-2023 TSH Qn 1.250 m[IU]/L 0.270 - 4.200 mIU/L [facility] XR FOOT GENERAL 3V AP/LAT/OB L BILATERALon 11-23-2022 [facility] STREP A MOLECULAR (POC)on Procedural Control Valid [facility] Strep A (POCT) Negative Negative [facility] XR HIP GENERAL 3V PELV/AP/LA T RIGHTon 04-02-2022 [facility] XR Pelvis and Hip - right AP and Lateral frogon 04-02-2022 IMPRESSION: Right hip osteoarthritis. Handkerchief Maker: [email or web address] Transcribe Date/Time: Apr 02 2022 4:02P [...] lumbar spondylosis. IMPRESSION IMPRESSION: Right hip osteoarthritis. Handkerchief Maker: [email or web address] Transcribe Date/Time: Apr 02 2022 4:02P Dictated by : Jessica CRISTINA MD This examination was interpreted and the report reviewed and electronically signed by: Jessica CRISTINA MD on Apr 02 2022 4:04PM EST [facility] Radiology Study observation (narrative) [facility] XR Pelvis and Hip - right AP and Lateral frogOrdered By: Ccf Provider on 04-02-2022 [facility] No Panel Informationon 02-24 [facility] XR Hand - bilateral PA and L ateral and Obliqueon 12-24-2021 IMPRESSION: 1. Degenerative arthrosis of both hands. Handkerchief Maker: [email or web address] Transcribe Date/Time: Dec 24 2021 10:22A [...] demonstrated. ZZZ_DO_NOT_US E_DIVISION OF RADIOLOGY [facility] - 12/24/2021 * * *Final Report* [...] IMPRESSION: 1. Degenerative arthrosis of both hands. Handkerchief Maker: [email or web address] Transcribe Date/Time: Dec 24 2021 10:22A Dictated by : MARK FIELD MD This examination was interpreted and the report reviewed and electronically signed by: MARK FIELD MD on Dec 24 2021 10:24AM EST [facility] XR Hand - bilateral PA and L ateral and ObliqueOrdered By: Ccf Provider on 12-24-2021 [facility] XR Lumbar spine 3 Viewson IMPRESSION: 1. Multilevel lumbar spondylosis. 2. Lower lumbar spine degenerative facet arthrosis. Handkerchief Maker: [email or web address] Transcribe Date/Time: Dec 24 2021 10:48A [...] L5-S1 levels. ZZZ_DO_NOT_US E_DIVISION OF RADIOLOGY Provider, [facility] Cristo [facility] - 12/24/2021 * * *Final Report* [...] 2. Lower lumbar spine degenerative facet arthrosis. Handkerchief Maker: [email or web address] Transcribe Date/Time: Dec 24 2021 10:48A Dictated by : MARK FIELD MD This examination was interpreted and the report reviewed and electronically signed by: MARK FIELD MD on Dec 24 2021 10:49AM EST [facility] No Panel Informationon 12-23 Radiology Study observation (narrative) [facility] XR Chest PA and Lateralon IMPRESSION: Small amount of patchy opacification the infrahilar right lung; subsegmental atelectasis, artifacts related to overlying bronchovascular markings versus subtle early/persistent infiltrates (if the patient has signs and symptoms of pneumonia). Follow-up as clinically indicated. Handkerchief Maker: [email or web address] Transcribe Date/Time: Feb 19 2021 4:32P [...] acute osseous pathology. DIVISION OF RADIOLOGY Provider, [facility] Cristo Moore - 02/19/2021 * * [...] symptoms of pneumonia). Follow-up as clinically indicated. Handkerchief Maker: [email or web address] Transcribe Date/Time: Feb 19 2021 4:32P Dictated by : CONNIE CHAVEZ MD This examination was interpreted and the report reviewed and electronically signed by: CONNIE CHAVEZ MD on Feb 19 2021 4:41PM EST [facility] Radiology Study observation (narrative) [facility] XR Chest PA and LateralOrder ed By: Ccf Provider on 02-19-2021 [facility] .Auto Diffon 12-02-2020 Basophil, Absolute 0.10 10 3/mcL Normal 0.00-0.19 [facility] ([place]) Comment on above: Performed By: #### C FRANCISCO SANTANA ANEU TROPHS #### [address] [address] #### BMP, GFR #### [address] [address] Basophils/100 WBC (Bld) 0.5 % Normal 0.0-2.5 [facility] ([place]) Comment on above: Performed By: #### C FRANCISCO SANTANA ANEU, TROPHS #### [address] [address] #### BMP, GFR #### [address] [address] Eosinophil, Absolute 0.30 10 3/mcL Normal 0.00-0.40 [facility] ([place]) Comment on above: Performed By: #### C BC, ADIFF, ANEU, TROPHS #### [place] [address] #### BMP, GFR #### [address] [address] Eosinophils/100 WBC (Bld) 2.7 % Normal 0.0-7.0 [facility] ([place]) Comment on above: Performed By: #### C BC, ADIFF, ANEU, TROPHS #### [place] [address] #### BMP, GFR #### [address] [address] Lymphocyte, Absolute 2.40 10 3/mcL Normal 0.77-3.85 [facility] ([place]) Comment on above: Performed By: #### C BC, ADIFF, ANEU, TROPHS #### [place] [address] #### BMP, GFR #### [address] [address] Lymphocytes/100 WBC (Bld) 22.1 % Normal 10.0-50.0 [facility] ([place]) Comment on above: Performed By: #### C BC, ADIFF, ANEU, TROPHS #### [place] [address] #### BMP, GFR #### [address] [address] Monocyte, Absolute 1.00 10 3/mcL Normal 0.15-1.00 [facility] ([place]) Comment on above: Performed By: #### C BC, ADIFF, ANEU, TROPHS #### [place] [address] #### BMP, GFR #### [address] [address] Monocytes/100 WBC (Bld) 9.2 % Normal 1.7-13.0 [facility] ([place]) Comment on above: Performed By: #### C BC, ADIFF, ANEU, TROPHS #### [address] [address] #### BMP, GFR #### [address] [address] Neutrophils/100 WBC (Bld) 65.5 % Normal 37.0-80.0 [facility] ([place]) Comment on above: Performed By: #### C BC, ADIFF, ANEU, TROPHS #### [address] [address] #### BMP, GFR #### [address] [address] .GFRon 12-02-2020 GFR Non- 98 ml/min/1.73sqm Normal [facility] ([place]) Comment on above: Result Comment: GFR [...] #### C BC, ADIFF, ANEU, TROPHS #### [address] [address] #### BMP, GFR #### [address] [address] GFR 119 ml/min/1.73sqm Normal [facility] ([place]) Comment on above: Result Comment: GFR [...] #### C BC, ADIFF, ANEU, TROPHS #### [place] [address] #### BMP, GFR #### [place] [address] .NEUABSon 12-02-2020 Neutrophil, Absolute 7.00 10 3/mcL High 2.85-6.16 [facility] ([place]) Comment on above: Performed By: #### C BC, ADIFF, ANEU, TROPHS #### [place] [address] #### BMP, GFR #### [place] [address] BMPon 12-02-2020 BUN/Creatinine Ratio 16 ratio Normal 7-27 [facility] ([place]) Comment on above: Performed By: #### C BC, ADIFF, ANEU, TROPHS #### [place] [address] #### BMP, GFR #### [place] [address] Calcium [Mass/Vol] 9.2 mg/dL Normal 8.4-10.2 [facility] ([place]) Comment on above: Performed By: #### C BC, ADIFF, ANEU, TROPHS #### [place] [address] #### BMP, GFR #### [place] [address] Chloride [Moles/Vol] 102 mmol/L Normal 98-107 [facility] ([place]) Comment on above: Performed By: #### C BC, ADIFF, ANEU, TROPHS #### [address] [address] #### BMP, GFR #### [address] [address] CO2 [Moles/Vol] 30 mmol/L High 22-29 [facility] ([place]) Comment on above: Performed By: #### C BC, ADIFF, ANEU, TROPHS #### [address] [address] #### BMP, GFR #### [address] [address] Creatinine [Mass/Vol] 0.63 mg/dL Normal 0.55-1.02 [facility] ([place]) Comment on above: Performed By: #### C BC, ADIFF, ANEU, TROPHS #### [address] [address] #### BMP, GFR #### [address] [address] Electrolyte Balance 10.0 mEq/L Normal [facility] ([place]) Comment on above: Performed By: #### C BC, ADIFF, ANEU, TROPHS #### [address] [address] #### BMP, GFR #### [address] [address] Glucose [Mass/Vol] 121 mg/dL High 70-105 [facility] ([place]) Comment on above: Performed By: #### C BC, ADIFF, ANEU, TROPHS #### [address] [address] #### BMP, GFR #### [address] [address] Potassium [Moles/Vol] 3.4 mmol/L Low 3.5-5.1 [facility] ([place]) Comment on above: Performed By: #### C BC, ADIFF, ANEU, TROPHS #### [address] [address] #### BMP, GFR #### [address] [address] Sodium [Moles/Vol] 142 mmol/L Normal 136-145 [facility] ([place]) Comment on above: Performed By: #### C BC, ADIFF, ANEU, TROPHS #### [place] [address] #### BMP, GFR #### [place] [address] Urea nitrogen [Mass/Vol] 10 mg/dL Normal 7-18 [facility] ([place]) Comment on above: Performed By: #### C BC, ADIFF ANEU, TROPHS #### [place] [address] #### BMP, GFR #### [place] [address] CBCon 12-02-2020 Erythrocyte distribution width (RBC) [Ratio] 12.9 % Normal 11.5-14.5 [facility] ([place]) Comment on above: Performed By: #### C BC ADIFF ANEU, TROPHS #### [place] [address] #### BMP, GFR #### [place] [address] Hematocrit (Bld) [Volume fraction] 42.0 % Normal 37.0-47.0 [facility] ([place]) Comment on above: Performed By: #### C BC ADIFF ANEU, TROPHS #### [place] [address] #### BMP, GFR #### [place] [address] Hgb 13.9 G/dL Normal 12.0-16.0 [facility] ([place]) Comment on above: Performed By: #### C BC, ADIFF, ANEU, TROPHS #### [place] [address] #### BMP, GFR #### [place] [address] MCH (RBC) [Entitic mass] 30.6 pg Normal 27.0-31.2 [facility] ([place]) Comment on above: Performed By: #### C BC, ADIFF, ANEU, TROPHS #### [place] [address] #### BMP, GFR #### [place] [address] MCHC 33.0 G/dL Normal 33.0-37.0 [facility] ([place]) Comment on above: Performed By: #### C BC, ADIFF, ANEU, TROPHS #### [place] [address] #### BMP, GFR #### [place] [address] MCV (RBC) [Entitic vol] 92.8 fL Normal 80.0-94.0 [facility] ([place]) Comment on above: Performed By: #### C BC, ADIFF, ANEU, TROPHS #### [place] [address] #### BMP, GFR #### [place] [address] Platelet 274 10 3/mcL Normal 130-400 [facility] ([place]) Comment on above: Performed By: #### C BC, ADIFF, ANEU, TROPHS #### [place] [address] #### BMP, GFR #### [place] [address] Platelet mean volume (Bld) [Entitic vol] 8.5 fL Normal 7.4-10.4 [facility] ([place]) Comment on above: Performed By: #### C BC, ADIFF, ANEU, TROPHS #### [place] [address] #### BMP, GFR #### [place] [address] RBC 4.53 10 6/mcL Normal 4.20-5.40 [facility] ([place]) Comment on above: Performed By: #### C BC, ADIFF, ANEU, TROPHS #### [place] [address] [place], [place] [address] #### BMP, GFR #### [address] [address] WBC 10.70 10 3/mcL Normal 4.60-10.80 [facility] ([place]) Comment on above: Performed By: #### C BC, ADIFF, ANEU, TROPHS #### [place] [address] [place], [place] [address] #### BMP, GFR #### [place] [id number] [place] [address] [address] ABDOMEN/PELVIS W/CONTRAST on 12-02-2020 CT ABDOMEN/PELVIS [...] Reason for Exam: elevated cea levels FINDINGS: Incc-yn-ttxlildh degenerative changes are noted in the spine [...] by: Travis Victor MD Preliminary Report By: Traivs Victor MD Electronically signed By Travis Victor MD Dictated Date: 12/02/2020 1:15:05 PM Prelim Date: 12/02/2020 1:23:10 PM Sign Date: 12/02/2020 1:23:10 PM Ordering Provider: [facility] ([place]) Isa 12-02-2020 Troponin I High Sensitivity 5.9 ng/L Normal 0.0-51.4 [facility] ([place]) Comment on above: Performed By: #### C BC, ADIFF, ANEU, TROPHS #### [facility] [address] [place], [place] [address] #### BMP, GFR #### [facility] [address] [place] [address] Vital Signs Date Time Vital Sign Value Performing Clinician Facility 12-25-2024 10:55-0400 Body mass index (BMI) [Ratio] 41.36 kg/m2 David Chicas MD Work Phone: [facility] 12-25-2024 10:55-0400 Body weight 123.38 kg David Chicas MD Work Phone: [facility] 12-25-2024 10:55-0400 Diastolic blood pressure 78 mm[Hg] David Chicas MD Work Phone: [facility] 12-25-2024 10:55-0400 Heart rate 94 /min David Chicas MD Work Phone: [facility] 12-25-2024 10:55-0400 Respiratory rate 16 /min David Chicas MD Work Phone: [facility] 12-25-2024 10:55-0400 SaO2% (BldA) [Mass fraction] 97 % David Chicas MD Work Phone: [facility] 12-25-2024 10:55-0400 Systolic blood pressure 138 mm[Hg] David Chicas MD Work Phone: [facility] 11-24-2024 13:00-0400 Body mass index (BMI) [Ratio] 41.97 kg/m2 Mattie Older BRAID CUTTER.DEICER REPAIRER Work Phone: [facility] 11-24-2024 13:00-0400 Body weight 125.19 kg Mattie Older BRAID CUTTER.DEICER REPAIRER Work Phone: [facility] 11-24-2024 13:00-0400 Diastolic blood pressure 78 mm[Hg] Mattie Older BRAID CUTTER.DEICER REPAIRER Work Phone: [facility] 11-24-2024 13:00-0400 Heart rate 80 /min Mattie Older BRAID CUTTER.DEICER REPAIRER Work Phone: [facility] 11-24-2024 13:00-0400 Respiratory rate 16 /min Mattie Older BRAID CUTTER.DEICER REPAIRER Work Phone: [facility] 11-24-2024 13:00-0400 SaO2% (BldA) [Mass fraction] 97 % Mattie Older BRAID CUTTER.DEICER REPAIRER Work Phone: [facility] 11-24-2024 13:00-0400 Systolic blood pressure 130 mm[Hg] Mattie Older BRAID CUTTER.DEICER REPAIRER Work Phone: [facility] 11-20-2024 13:17-0400 Body mass index (BMI) [Ratio] 41.97 kg/m2 Felix Ornelas MD Work Phone: [facility] 11-20-2024 13:17-0400 Body weight 125.19 kg Felix Ornelas MD Work Phone: [facility] 11-20-2024 13:17-0400 Diastolic blood pressure 82 mm[Hg] Felix Ornelas MD Work Phone: [facility] 11-20-2024 13:17-0400 Heart rate 93 /min Felix Ornelas MD Work Phone: [facility] 11-20-2024 13:17-0400 SaO2% (BldA) [Mass fraction] 97 % Felix Ornelas MD Work Phone: [facility] 11-20-2024 13:17-0400 Systolic blood pressure 132 mm[Hg] Felix Ornelas MD Work Phone: [facility] 11-14-2024 07:49-0400 Body height 172.[address] David Chicas MD Work Phone: [facility] 11-14-2024 07:49-0400 Body mass index (BMI) [Ratio] 42.3 kg/m2 Dr. David Chicas MD Work Phone: [facility] 11-14-2024 07:49-0400 Body temperature 97.3 [degF] Dr. David Chicas MD Work Phone: 2(372)866-081716 [place] [address] 11-14-2024 07:49-0400 Body weight 126.[address] David Chicas MD Work Phone: 0(841)098-528445 [place] [address] 11-14-2024 07:49-0400 Diastolic blood pressure 84 mm[Hg] Dr. David Chicas MD Work Phone: 1(480)094-689916 [place] [address] 11-14-2024 07:49-0400 Heart rate 92 /min Dr. David Chicas MD Work Phone: 5(386)826-922916 [place] [address] 11-14-2024 07:49-0400 Respiratory rate 18 /min Dr. David Chicas MD Work Phone: 2(992)775-214245 [place] [address] 11-14-2024 07:49-0400 SaO2% (BldA) [Mass fraction] 94 % Dr. David Chicas MD Work Phone: [facility] 11-14-2024 07:49-0400 Systolic blood pressure 141 mm[Hg] Dr. David Chicas MD Work Phone: [facility] 10-27-2024 14:00-0400 Body temperature 97.7 [degF] Mattie Older BRAID CUTTER.DEICER REPAIRER Work Phone: [facility] 10-27-2024 14:00-0400 Diastolic blood pressure 72 mm[Hg] Mattie Older BRAID CUTTER.DEICER REPAIRER Work Phone: [facility] 10-27-2024 14:00-0400 Heart rate 77 /min Mattie Older BRAID CUTTER.DEICER REPAIRER Work Phone: [facility] 10-27-2024 14:00-0400 Respiratory rate 16 /min Mattie Older BRAID CUTTER.DEICER REPAIRER Work Phone: [facility] 10-27-2024 14:00-0400 SaO2% (BldA) [Mass fraction] 96 % Mattie Older BRAID CUTTER.DEICER REPAIRER Work Phone: [facility] 10-27-2024 14:00-0400 Systolic blood pressure 130 mm[Hg] Mattie Older BRAID CUTTER.DEICER REPAIRER Work Phone: [facility] 10-25-2024 12:17-0400 Body mass index (BMI) [Ratio] 43.03 kg/m2 Mattie Older BRAID CUTTER.DEICER REPAIRER Work Phone: [facility] 10-25-2024 12:17-0400 Body weight 128.37 kg Mattie Older BRAID CUTTER.DEICER REPAIRER Work Phone: [facility] 10-25-2024 12:17-0400 Diastolic blood pressure 78 mm[Hg] Mattie Older BRAID CUTTER.DEICER REPAIRER Work Phone: [facility] 10-25-2024 12:17-0400 Heart rate 80 /min Mattie Older BRAID CUTTER.DEICER REPAIRER Work Phone: [facility] 10-25-2024 12:17-0400 Respiratory rate 16 /min Mattie Older BRAID CUTTER.DEICER REPAIRER Work Phone: [facility] 10-25-2024 12:17-0400 SaO2% (BldA) [Mass fraction] 97 % Mattie Older BRAID CUTTER.DEICER REPAIRER Work Phone: [facility] 10-25-2024 12:17-0400 Systolic blood pressure 142 mm[Hg] Mattie Older BRAID CUTTER.DEICER REPAIRER Work Phone: [facility] 10-16-2024 12:11-0400 Body mass index (BMI) [Ratio] 43.64 kg/m2 David Chicas MD Work Phone: [facility] 10-16-2024 12:11-0400 Body weight 130.2 kg David Chicas MD Work Phone: [facility] 10-16-2024 12:11-0400 Diastolic blood pressure 82 mm[Hg] David Chicas MD Work Phone: [facility] 10-16-2024 12:11-0400 Heart rate 82 /min David Chicas MD Work Phone: [facility] 10-16-2024 12:11-0400 Respiratory rate 16 /min David Chicas MD Work Phone: 5(545)733-693808 [place] [address] 10-16-2024 12:11-0400 SaO2% (BldA) [Mass fraction] 96 % David Chicas MD Work Phone: 4(513)320-965908 [place] [address] 10-16-2024 12:11-0400 Systolic blood pressure 147 mm[Hg] David Chicas MD Work Phone: 5(473)995-466208 [place] [address] 10-13-2024 20:52-0400 Body height 172.[address] David Chicas MD Work Phone: 2(637)753-547145 [place] [address] 10-13-2024 20:52-0400 Body mass index (BMI) [Ratio] 42.7 kg/m2 Dr. David Chicas MD Work Phone: 6(225)062-797545 [place] [address] 10-13-2024 20:52-0400 Body temperature 96.8 [degF] Dr. David Chicas MD Work Phone: 3(970)853-786145 [place] [address] 10-13-2024 20:52-0400 Body weight 127.[address] David Chicas MD Work Phone: 6(876)041-033945 [place] [address] 10-13-2024 20:52-0400 Diastolic blood pressure 84 mm[Hg] Dr. David Chicas MD Work Phone: 5(954)985-151545 [place] [address] 10-13-2024 20:52-0400 Heart rate 105 /min Dr. David Chicas MD Work Phone: 6(169)726-195945 [place] [address] 10-13-2024 20:52-0400 Respiratory rate 16 /min Dr. David Chicas MD Work Phone: 3(797)055-577945 [place] [address] 10-13-2024 20:52-0400 SaO2% (BldA) [Mass fraction] 95 % Dr. David Chicas MD Work Phone: 2(856)664-870187 [place] [address]-16-2025 20:52-0400 Systolic blood pressure 183 mm[Hg] Dr. David Chicas MD Work Phone: [facility] 07-27-2024 11:23-0500 Body mass index (BMI) [Ratio] 43.64 kg/m2 Mattie Older BRAID CUTTER.DEICER REPAIRER Work Phone: [facility] 07-27-2024 11:23-0500 Body weight 130.18 kg Mattie Older BRAID CUTTER.DEICER REPAIRER Work Phone: [facility] 07-27-2024 11:23-0500 Diastolic blood pressure 80 mm[Hg] Mattie Older BRAID CUTTER.DEICER REPAIRER Work Phone: [facility] 07-27-2024 11:23-0500 Heart rate 79 /min Mattie Older BRAID CUTTER.DEICER REPAIRER Work Phone: [facility] 07-27-2024 11:23-0500 Respiratory rate 16 /min Mattie Older BRAID CUTTER.DEICER REPAIRER Work Phone: [facility] 07-27-2024 11:23-0500 SaO2% (BldA) [Mass fraction] 97 % Mattie Older BRAID CUTTER.DEICER REPAIRER Work Phone: [facility] 07-27-2024 11:23-0500 Systolic blood pressure 136 mm[Hg] Mattie Older BRAID CUTTER.DEICER REPAIRER Work Phone: [facility] 06-26-2024 11:03-0500 Body mass index (BMI) [Ratio] 44.09 kg/m2 Mattie Older BRAID CUTTER.DEICER REPAIRER Work Phone: [facility] 06-26-2024 11:03-0500 Body weight 131.54 kg Mattie Older BRAID CUTTER.DEICER REPAIRER Work Phone: [facility] 06-26-2024 11:03-0500 Diastolic blood pressure 82 mm[Hg] Mattie Older BRAID CUTTER.DEICER REPAIRER Work Phone: [facility] 06-26-2024 11:03-0500 Heart rate 78 /min Mattie Older BRAID CUTTER.DEICER REPAIRER Work Phone: [facility] 06-26-2024 11:03-0500 Respiratory rate 16 /min Mattie Older BRAID CUTTER.DEICER REPAIRER Work Phone: [facility] 06-26-2024 11:03-0500 SaO2% (BldA) [Mass fraction] 97 % Mattie Older BRAID CUTTER.DEICER REPAIRER Work Phone: [facility] 06-26-2024 11:03-0500 Systolic blood pressure 134 mm[Hg] Mattie Older BRAID CUTTER.DEICER REPAIRER Work Phone: 4(346)[phone] [place] [address] 06-21-2024 08:01-0500 Body mass index (BMI) [Ratio] 43.3 kg/m2 Dr. David Chicas MD Work Phone: 9(611)[phone] [place] [address] 06-21-2024 08:01-0500 Body temperature 97.4 [degF] Dr. David Chicas MD Work Phone: 5(047)884-898945 [place] [address] 06-21-2024 08:01-0500 Body weight 129.[address] David Chicas MD Work Phone: 3(360)578-234345 [place] [address] 06-21-2024 08:01-0500 Diastolic blood pressure 61 mm[Hg] Dr. David Chicas MD Work Phone: 5(197)605-813245 [place] [address] 06-21-2024 08:01-0500 Heart rate 75 /min Dr. David Chicas MD Work Phone: 3(533)913-056345 [place] [address] 06-21-2024 08:01-0500 Respiratory rate 20 /min Dr. David Chicas MD Work Phone: 1(913)739-363145 [place] [address] 06-21-2024 08:01-0500 SaO2% (BldA) [Mass fraction] 94 % Dr. David Chicas MD Work Phone: 5(250)001-212445 [place] [address] 06-21-2024 08:01-0500 Systolic blood pressure 106 mm[Hg] Dr. David Chicas MD Work Phone: 8(156)731-482745 [place] [address] 04-26-2024 10:48-0500 Diastolic Blood Pressure Non-Invasive 68 mm[Hg] SARA VASSAS DO [facility] 04-26-2024 10:48-0500 Heart rate 78 /min SARA VASSAS DO [facility] 04-26-2024 10:48-0500 Respiratory rate 18 /min SARA VASSAS DO [facility] 04-26-2024 10:48-0500 Systolic Blood Pressure Non-Invasive 166 mm[Hg] SARA VASSAS DO [facility] 04-04-2024 14:43-0500 Body height 172.7 cm Louann Bogner PA-C Work Phone: [facility] 04-04-2024 14:43-0500 Body mass index (BMI) [Ratio] 43.94 kg/m2 Louann Bogner PA-C Work Phone: [facility] 04-04-2024 14:43-0500 Body weight 131.09 kg Louann Bogner PA-C Work Phone: [facility] 04-04-2024 14:43-0500 Diastolic blood pressure 76 mm[Hg] Louann Bogner PA-C Work Phone: [facility] 04-04-2024 14:43-0500 Heart rate 82 /min Louann Bogner PA-C Work Phone: [facility] 04-04-2024 14:43-0500 Respiratory rate 12 /min Louann Bogner PA-C Work Phone: [facility] 04-04-2024 14:43-0500 SaO2% (BldA) [Mass fraction] 96 % Louann Bogner PA-C Work Phone: [facility] 04-04-2024 14:43-0500 Systolic blood pressure 132 mm[Hg] Louann Bogner PA-C Work Phone: [facility] 04-01-2024 11:03-0400 Body mass index (BMI) [Ratio] 44.25 kg/m2 Anny Athy PA-C Work Phone: [facility] 04-01-2024 11:03-0400 Body temperature 98.4 [degF] Anny Athy PA-C Work Phone: [facility] 04-01-2024 11:03-0400 Body weight 132 kg Anny Athy PA-C Work Phone: [facility] 04-01-2024 11:03-0400 Diastolic blood pressure 82 mm[Hg] Anny Athy PA-C Work Phone: [facility] 04-01-2024 11:03-0400 Heart rate 88 /min Anny Athy PA-C Work Phone: [facility] 04-01-2024 11:03-0400 Respiratory rate 16 /min Anny Athy PA-C Work Phone: [facility] 04-01-2024 11:03-0400 SaO2% (BldA) [Mass fraction] 95 % Anny Athy PA-C Work Phone: [facility] 04-01-2024 11:03-0400 Systolic blood pressure 142 mm[Hg] Anny Athy PA-C Work Phone: [facility] 03-27-2024 13:52-0400 Diastolic blood pressure 76 mm[Hg] Darrell Jack MD Work Phone: [facility] 03-27-2024 13:52-0400 Heart rate 86 /min Darrell Jack MD Work Phone: [facility] 03-27-2024 13:52-0400 Systolic blood pressure 111 mm[Hg] Darrell Jack MD Work Phone: [facility] 03-27-2024 13:49-0400 Body height 172.7 cm Darrell Jack MD Work Phone: [facility] 03-27-2024 13:49-0400 Body mass index (BMI) [Ratio] 43.91 kg/m2 Darrell Jack MD Work Phone: [facility] 03-27-2024 13:49-0400 Body temperature 98.29 [degF] Darrell Jack MD Work Phone: [facility] 03-27-2024 13:49-0400 Body weight 131 kg Darrell Jack MD Work Phone: [facility] 12-15-2023 14:35-0400 Diastolic blood pressure 79 mm[Hg] Mattie Older BRAID CUTTER.DEICER REPAIRER Work Phone: [facility] Comment on above: BP True 12-15-2023 14:35-0400 Heart rate 69 /min Mattie Older BRAID CUTTER.DEICER REPAIRER Work Phone: [facility] 12-15-2023 14:35-0400 Systolic blood pressure 130 mm[Hg] Mattie Older BRAID CUTTER.DEICER REPAIRER Work Phone: [facility] Comment on above: BP True 11-08-2023 14:03-0400 Body mass index (BMI) [Ratio] 42.42 kg/m2 Felix Ornelas MD Work Phone: [facility] 11-08-2023 14:03-0400 Body weight 126.55 kg Felix Ornelas MD Work Phone: [facility] 11-08-2023 14:03-0400 Diastolic blood pressure 81 mm[Hg] Felix Ornelas MD Work Phone: [facility] 11-08-2023 14:03-0400 Heart rate 78 /min Felix Ornelas MD Work Phone: [facility] 11-08-2023 14:03-0400 SaO2% (BldA) [Mass fraction] 95 % Felix Ornelas MD Work Phone: [facility] 11-08-2023 14:03-0400 Systolic blood pressure 153 mm[Hg] Felix Ornelas MD Work Phone: [facility] 03-24-2023 10:41-0400 Diastolic blood pressure 84 mm[Hg] Darrell Jack MD Work Phone: [facility] 03-24-2023 10:41-0400 Heart rate 80 /min Darrell Jack MD Work Phone: [facility] 03-24-2023 10:41-0400 Systolic blood pressure 131 mm[Hg] Darrell Jack MD Work Phone: [facility] 03-24-2023 10:37-0400 Body height 172.7 cm Darrell Jack MD Work Phone: [facility] 03-24-2023 10:37-0400 Body temperature 97.7 [degF] Darrell Jack MD Work Phone: [facility] 03-24-2023 10:37-0400 Body weight 123.38 kg Darrell Jack MD Work Phone: [facility] 02-26-2023 13:48-0400 Diastolic blood pressure 72 mm[Hg] Mattie Older BRAID CUTTER.DEICER REPAIRER Work Phone: [facility] 02-26-2023 13:48-0400 Systolic blood pressure 134 mm[Hg] Mattie Older BRAID CUTTER.DEICER REPAIRER Work Phone: [facility] 02-26-2023 13:00-0400 Body weight 122.02 kg Mattie Older BRAID CUTTER.DEICER REPAIRER Work Phone: [facility] 02-26-2023 13:00-0400 Heart rate 68 /min Mattie Older BRAID CUTTER.DEICER REPAIRER Work Phone: [facility] 02-26-2023 13:00-0400 Respiratory rate 16 /min Mattie Older BRAID CUTTER.DEICER REPAIRER Work Phone: [facility] 02-26-2023 13:00-0400 SaO2% (BldA) [Mass fraction] 97 % Mattie Older BRAID CUTTER.DEICER REPAIRER Work Phone: [facility] 10-08-2022 12:52-0400 Body temperature 98.6 [degF] Emanuel Palomares BRAID CUTTER.DEICER REPAIRER Work Phone: [facility] 10-08-2022 12:52-0400 Body weight 119.75 kg Emanuel Palomares BRAID CUTTER.DEICER REPAIRER Work Phone: [facility] 10-08-2022 12:52-0400 Diastolic blood pressure 73 mm[Hg] Emanuel Palomares BRAID CUTTER.DEICER REPAIRER Work Phone: [facility] 10-08-2022 12:52-0400 Heart rate 75 /min Emanuel Palomares BRAID CUTTER.DEICER REPAIRER Work Phone: [facility] 10-08-2022 12:52-0400 SaO2% (BldA) [Mass fraction] 95 % Emanuel Palomares BRAID CUTTER.DEICER REPAIRER Work Phone: [facility] 10-08-2022 12:52-0400 Systolic blood pressure 132 mm[Hg] Emanuel Palomares BRAID CUTTER.DEICER REPAIRER Work Phone: [facility] 08-25-2022 13:05-0400 Body height 172.7 cm David Chicas MD Work Phone: [facility] 08-25-2022 13:05-0400 Body temperature 99.39 [degF] David Chicas MD Work Phone: [facility] 08-25-2022 13:05-0400 Body weight 114.31 kg David Chicas MD Work Phone: [facility] 08-25-2022 13:05-0400 Diastolic blood pressure 74 mm[Hg] David Chicas MD Work Phone: [facility] 08-25-2022 13:05-0400 Heart rate 77 /min David Chicas MD Work Phone: [facility] 08-25-2022 13:05-0400 Respiratory rate 14 /min David Chicas MD Work Phone: [facility] 08-25-2022 13:05-0400 SaO2% (BldA) [Mass fraction] 94 % David Chicas MD Work Phone: [facility] 08-25-2022 13:05-0400 Systolic blood pressure 134 mm[Hg] David Chicas MD Work Phone: [facility] 07-20-2022 16:07-0500 Body height 172.7 cm Prachi Cuadra APRN.DEICER REPAIRER Work Phone: [facility] 07-20-2022 16:07-0500 Body weight 119.3 kg Prachi Cuadra APRN.DEICER REPAIRER Work Phone: [facility] 07-20-2022 16:07-0500 Diastolic blood pressure 80 mm[Hg] Prachi Cuadra APRN.DEICER REPAIRER Work Phone: [facility] 07-20-2022 16:07-0500 Heart rate 70 /min Prachi Cuadra APRN.DEICER REPAIRER Work Phone: [facility] 07-20-2022 16:07-0500 Respiratory rate 12 /min Prachi Cuadra APRN.DEICER REPAIRER Work Phone: [facility] 07-20-2022 16:07-0500 SaO2% (BldA) [Mass fraction] 96 % Prachi Cuadra APRN.DEICER REPAIRER Work Phone: [facility] 07-20-2022 16:07-0500 Systolic blood pressure 140 mm[Hg] Prachi Cuadra BRAID CUTTER.DEICER REPAIRER Work Phone: [facility] 06-25-2022 12:53-0500 Body height 172.7 cm Emanuel Palomares APRN.DEICER REPAIRER Work Phone: [facility] 06-25-2022 12:53-0500 Body temperature 98.29 [degF] Emanuel Palomares APRN.DEICER REPAIRER Work Phone: [facility] 06-25-2022 12:53-0500 Body weight 116.57 kg Emanuel Palomares APRN.DEICER REPAIRER Work Phone: [facility] 06-25-2022 12:53-0500 Diastolic blood pressure 82 mm[Hg] Emanuel Palomares APRN.DEICER REPAIRER Work Phone: [facility] 06-25-2022 12:53-0500 Heart rate 84 /min Emanuel Palomares APRN.DEICER REPAIRER Work Phone: [facility] 06-25-2022 12:53-0500 Systolic blood pressure 130 mm[Hg] Emanuel Jones BRAID CUTTER.DEICER REPAIRER Work Phone: [facility] 05-01-2022 17:12-0500 Body temperature 98.4 [degF] Chemo Christie MD Work Phone: [facility] 05-01-2022 17:12-0500 Body weight 121.47 kg Chmeo Christie MD Work Phone: [facility] 05-01-2022 17:12-0500 Diastolic blood pressure 76 mm[Hg] Chemo Christie MD Work Phone: [facility] 05-01-2022 17:12-0500 Heart rate 76 /min Chemo Christie MD Work Phone: [facility] 05-01-2022 17:12-0500 Respiratory rate 18 /min Chemo Christie MD Work Phone: [facility] 05-01-2022 17:12-0500 SaO2% (BldA) [Mass fraction] 95 % Chemo Christie MD Work Phone: [facility] 05-01-2022 17:12-0500 Systolic blood pressure 148 mm[Hg] Chemo Christie MD Work Phone: [facility] 04-02-2022 14:45-0400 Body temperature 98.29 [degF] Anny Athy PA-C Work Phone: [facility] 04-02-2022 14:45-0400 Body weight 123.74 kg Anny Athy PA-C Work Phone: [facility] 04-02-2022 14:45-0400 Diastolic blood pressure 80 mm[Hg] Anny Athy PA-C Work Phone: [facility] 04-02-2022 14:45-0400 Heart rate 85 /min Anny Athy PA-C Work Phone: [facility] 04-02-2022 14:45-0400 Respiratory rate 19 /min Anny Athy PA-C Work Phone: [facility] 04-02-2022 14:45-0400 SaO2% (BldA) [Mass fraction] 95 % Anny CHESTER-Toña Work Phone: [facility] 04-02-2022 14:45-0400 Systolic blood pressure 164 mm[Hg] Anny Iqbal PA-C Work Phone: [facility] 03-05-2022 11:40-0400 Body weight 124.74 kg Rajiv Isaac DO Work Phone: [facility] 03-05-2022 11:40-0400 Diastolic blood pressure 80 mm[Hg] Rajiv Isaac DO Work Phone: [facility] 03-05-2022 11:40-0400 Heart rate 75 /min Rajiv Isaac DO Work Phone: [facility] 03-05-2022 11:40-0400 Systolic blood pressure 143 mm[Hg] Rajiv Isaac DO Work Phone: [facility] 02-25-2022 13:03-0400 Body height 172.7 cm David Chicas MD Work Phone: [facility] 02-25-2022 13:03-0400 Body temperature 100.2 [degF] David Chicas MD Work Phone: [facility] 02-25-2022 13:03-0400 Body weight 123.38 kg David Chicas MD Work Phone: [facility] 02-25-2022 13:03-0400 Diastolic blood pressure 74 mm[Hg] David Chicas MD Work Phone: [facility] 02-25-2022 13:03-0400 Respiratory rate 15 /min David Chicas MD Work Phone: [facility] 02-25-2022 13:03-0400 Systolic blood pressure 134 mm[Hg] David Chicas MD Work Phone: [facility] Encounters Encounter Date Encounter Type Care Provider Facility Start: 04-17-2025 ambulatory 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 David Chicas MD Work Phone: -Radiology [facility] Start: 02-12-2025 End: 02-12-[address] Elvia Bowers MD -[facility] Work Phone: Start: 02-12-2025 End: 02-12-2025 ambulatory [facility] Facility:[facility] Start: 02-06-2025 Encounter for genera l adult medical examination without abnormal findings Patricia Costa NP [facility] Start: 02-02-2025 End: 02-09-2025 ambulatory [facility] BRAID CUTTER.DEICER REPAIRER Work Phone: [facility] [place] Comment on above: Folic Acid Start: 01-30-2025 End: 01-30-2025 Patient encounter procedure Patricia Costa SPINNING LATHE OPERATOR HYDRAULIC-[facility] -[facility] Work Phone: Start: 01-30-2025 End: 01-31-2025 Refill David Chicas MD Work Phone: Internal Medicine [employer] Comment on above: Refill Request Start: 01-30-2025 End: 01-30-2025 ambulatory [facility] Facility:[facility] Start: 01-27-2025 End: 01-31-2025 Refill David Chicas MD Work Phone: [facility] [place] Comment on above: Refill Request Start: 01-02-2025 End: 01-02-2025 ambulatory [facility] Facility:[facility] Start: 12-28-2024 End: 12-28-2024 ambulatory David Chicas [...] Essential (primary) hypertension Start: 12-25-2024 End: 12-25-2024 [facility] Facility:[facility] Start: 12-19-2024 End: 01-19-2025 ambulatory David Chicas [...] counseling, encounter for Start: 11-24-2024 End: 11-24-2024 [facility] Facility:[facility] Start: 11-21-2024 End: 11-21-2024 Telemedicine consultation with [...] Dx); Pure hypercholesterolemia Start: 11-20-2024 End: 11-20-2024 [facility] Facility:[facility] Start: 11-14-2024 End: 11-14-2024 Patient encounter procedure Patricia ONEILL -[facility] Work Phone: Start: 11-14-2024 End: 11-15-[address] David Chicas MD Work Phone: [facility] Work Phone: Comment on above: Refill Request Start: 11-13-2024 End: 11-13-2024 Chart abstracting Darrell Jack MD Work Phone: Rheumatology Comment on above: Abstract (PLQ eye ex am) Start: 11-04-2024 End: 11-06-2024 Refill Darrell Jack MD Work Phone: Rheumatology Comment on above: Refill Request Start: 10-27-2024 End: 10-27-2024 Office outpatient visit 25 minutes Mattie Older BRAID CUTTER.DEICER REPAIRER Work Phone: [facility] [place] Comment on above: Cellulitis of right hand (Primary Dx); Cat bite, subsequent encounter; Class 3 severe obesity with serious comorbidity and body mass index (BMI) of 40.0 to 44.9 in adult, unspecified obesity type Start: 10-27-2024 End: 10-27-2024 ambulatory [facility] Facility:[facility] Start: 10-25-2024 End: 10-25-2024 Office outpatient visit 25 minutes Mattie Older BRAID CUTTER.DEICER REPAIRER Work Phone: [facility] [place] Comment on above: Cellulitis of right hand (Primary Dx); Cat bite, subsequent encounter; Other fatigue Start: 10-25-2024 End: 10-25-2024 ambulatory DAVID GANCINDY Facility:[facility] Start: 10-20-2024 End: 12-20-2024 Follow-up encounter David Chicas MD Work Phone: [facility] Medicine [place] Start: 10-19-2024 End: 12-19-2024 Follow-up encounter Darrell Jack MD Work Phone: Rheumatology Start: 10-19-2024 End: 10-19-2024 ambulatory DARRELL JACK Facility:[facility] Start: 10-16-2024 End: 10-16-2024 Office outpatient visit 25 minutes David Chicas MD Work Phone: Internal Medicine [employer] Comment on above: Cat bite, subsequent encounter (Primary Dx); Cellulitis of right hand Start: 10-16-2024 End: 10-16-2024 ambulatory [facility] Facility:[facility] Start: 10-13-2024 End: 10-13-2024 Emergency department patient visit Dr. David Chicas MD Work Phone: -Emergency Department Work Phone: Start: 10-10-2024 End: 10-13-2024 ambulatory David Chicas MD Work Phone: Internal Medicine [place] [id number] Start: 09-20-2024 End: 09-20-2024 ambulatory [facility] Facility:[facility] Start: 09-19-2024 End: 11-19-2024 Follow-up encounter Darrell Jack MD Work Phone: Rheumatology Start: 09-18-2024 End: 09-18-2024 [facility] Facility:[facility] Start: 09-16-2024 End: 09-18-2024 Refill Darrell Jack [...] Start: 08-25-2024 End: 08-25-2024 ambulatory DARRELL JACK Facility:[facility] Start: 08-12-2024 End: 08-14-2024 Refill Emanuel Palomares APRN.CNP Work Phone: Rheumatology Comment on above: Refill Request Start: 07-27-2024 End: 07-27-2024 ambulatory DAVID CHICAS Facility:[facility] Start: 07-27-2024 End: 07-27-2024 Patient encounter procedure Mattie Somers APRN.CNP Work Phone: Internal Medicine [employer] Comment on above: Class 3 severe obesi ty with serious comorbidity and body mass index (BMI) of 40.0 to 44.9 in adult, unspecified obesity type (HCC) (Primary Dx); Depression with anxiety Start: 07-24-2024 End: 07-24-2024 ambulatory DARRELL JACK Facility:[facility] Start: 07-15-2024 End: 07-17-2024 Refill Darrell Jack MD Work Phone: Rheumatology Comment on above: Refill Request Start: 07-05-2024 End: 07-05-2024 ambulatory Eddie Lopez Dobrauliodayton CLIFT[place].DEICER REPAIRER Work Phone: Neurology Comment on above: Migraine without aur a and without status migrainosus, not intractable Start: 07-05-2024 End: 07-05-2024 Telemedicine consultation with patient Eddie Lopez Dobrauliodayton CLIFT[place].DEICER REPAIRER Work Phone: Neurology Start: 07-01-2024 End: 07-03-2024 ambulatory David Chicas MD Work Phone: [facility] [place] Comment on above: Thyroxine Start: 06-29-2024 End: 06-30-2024 Refill David Chicas MD Work Phone: Internal Medicine [place] Comment on above: Refill Request Results Start: 06-26-2024 End: 06-26-2024 ambulatory DAVID CHICAS Facility:[facility] Start: 06-26-2024 End: 06-26-2024 Patient encounter procedure Mattie Somers APRN.DEICER REPAIRER Work Phone: Internal Medicine [place] Comment on above: Other fatigue (Prima ry Dx); Class 3 severe obesity with serious comorbidity and body mass index (BMI) of 40.0 to 44.9 in adult, unspecified obesity type (HCC); Hypothyroidism, unspecified type; Essential hypertension; Prediabetes; Obstructive sleep apnea syndrome; Vitamin D deficiency Start: 06-22-2024 End: 06-22-2024 ambulatory DARRELL JACK Facility:[facility] Start: 06-21-2024 End: 06-21-2024 Telemedicine consultation with patient Darrell Jack MD Work Phone: Rheumatology Start: 06-21-2024 End: 06-21-2024 E-mail encounter from caregiver Darrell Jack MD Work Phone: Rheumatology Start: 06-21-2024 End: 06-21-2024 Patient encounter procedure Patricia Costa SPINNING LATHE OPERATOR HYDRAULICKevin -[facility] Work Phone: Start: 06-21-2024 End: 06-21-2024 ambulatory Darrell Jack MD Work Phone: Rheumatology Comment on above: Sulfasalazine inform ation Inflammatory arthrit is (Primary Dx); Long-term use of Plaquenil; Encounter for long-term (current) use of medications; Pain in joint, multiple sites; Osteoarthritis of multiple joints, unspecified osteoarthritis type Start: 06-15-2024 End: 06-15-2024 ambulatory DAVID CHICAS Facility:[facility] Start: 06-05-2024 End: 06-05-2024 ambulatory [facility] Facility:[facility] Start: 05-30-2024 End: 06-02-2024 ambulatory David Chicas MD Work Phone: Internal Medicine [facility] Start: 05-19-2024 End: 05-19-2024 Telephone encounter Darrell Jack MD Work Phone: Rheumatology Start: 05-18-2024 End: 05-18-2024 ambulatory DAVID CHICAS Facility:[facility] Start: 05-18-2024 End: 05-18-2024 Subsequent hospital visit by physician Main A21 4 Work Phone: Radiology Comment on above: Pain in joint, multi ple sites [M25.50] Start: 04-26-2024 End: 04-26-[address] CAIO ADAM MD Facility:A Start: 04-26-2024 End: 04-26-2024 Minor Procedure SARA AUSTIN DO [facility] Start: 04-22-2024 End: 04-24-2024 Refill Mattie Somers APRN.DEICER REPAIRER Work Phone: Internal Medicine [employer] [facility] Comment on above: Refill Request Start: 04-17-2024 End: 04-17-2024 ambulatory [facility] Facility:[facility] Start: 04-04-2024 End: 04-04-2024 Office outpatient visit 15 minutes Louann Damon PA-C Work Phone: Family Medicine [place] Comment on above: Herpes zoster withou t complication (Primary Dx) Start: 04-04-2024 End: 04-04-2024 Telephone encounter David Chicas MD Work Phone: Internal Medicine [place] Comment on above: Patient Update Start: 04-04-2024 End: 04-04-2024 ambulatory Eddie Wilson APRN.DEICER REPAIRER Work Phone: Neurology Comment on above: Migraine without aur a and without status migrainosus, not intractable Start: 04-04-2024 End: 04-04-2024 Telemedicine consultation with patient Eddie Jessica Wilson APRN.DEICER REPAIRER Work Phone: Neurology Start: 04-01-2024 End: 04-01-2024 [facility] Facility:[facility] Start: 04-01-2024 End: 04-01-2024 Patient encounter procedure Anny Iqbal PA-C Work Phone: [facility] Comment on above: Herpes zoster withou t complication (Primary Dx) Start: 03-30-2024 End: 03-30-2024 Refill Candida Guerra APRN.DEICER REPAIRER Work Phone: Internal Medicine [place] Comment on above: Refill Request Start: 03-27-2024 End: 04-12-2024 Telephone encounter Miri CORRAL Radiology Comment on above: Appointment Start: 03-27-2024 End: 03-27-2024 Patient encounter procedure Darrell Jack MD Work Phone: Rheumatology Comment on above: Inflammatory arthrit is (Primary Dx); Long-term use of Plaquenil; Osteoarthritis of multiple joints, unspecified osteoarthritis type; Pain in joint, multiple sites Start: 02-22-2024 End: 02-22-2024 Refill Mattie Somers BRAID CUTTER.DEICER REPAIRER Work Phone: Internal Medicine [place] Comment on above: Refill Request Start: 02-08-2024 End: 02-08-2024 Refill Candida Guerra BRAID CUTTER.DEICER REPAIRER Work Phone: Internal Medicine [place] Comment on above: Refill Request Start: 12-15-2023 End: 12-15-2023 Patient encounter procedure Mattie Somers APRN.DEICER REPAIRER Work Phone: Internal Medicine [place] Comment on above: Essential hypertensi on (Primary Dx); Mixed hyperlipidemia; Prediabetes; Hypothyroidism, unspecified type Start: 11-30-2023 ambulatory David Perez Work Phone: Internal [facility] Start: 11-08-2023 End: 11-08-2023 Patient encounter procedure Felix Ornelas MD Work Phone: Cardiology Comment on above: Essential hypertensi on (Primary Dx); Hyperlipidemia, unspecified hyperlipidemia type; Preoperative clearance Start: 11-08-2023 End: 11-08-2023 Preoperative state Felix Ornelas MD Work Phone: [facility] Work Phone: Start: 11-06-2023 Refill Prachi mccann BRAID CUTTER.DEICER REPAIRER Work Phone: Cardiology Comment on above: Refill Request Start: 10-27-2023 End: 10-27-2023 Subsequent hospital visit by physician [facility] (I-Stat/1.5t) Work Phone: Radiology Start: 10-22-2023 Chart abstracting Darrell Anand i, MD Work Phone: Rheumatology Comment on above: Abstract (PLQ eye ex am) Start: 09-23-2023 End: 09-23-2023 Patient encounter procedure Kusum Vetovitz PA-C Work Phone: Orthopaedics Comment on above: Acute pain of left k nee (Primary Dx); Arthritis of knee Start: 09-15-2023 End: 09-15-2023 ambulatory Keiko Maloney BRAID CUTTER.DEICER REPAIRER Work Phone: Neurology Comment on above: Migraine without aur a and without status migrainosus, not intractable (Primary Dx) Start: 09-15-2023 End: 09-15-2023 Telemedicine consultation with patient Keiko Maloney BRAID CUTTER.DEICER REPAIRER Work Phone: [facility] Start: 09-13-2023 End: 09-13-2023 ambulatory [facility] Work Phone: Start: 09-13-2023 End: 09-13-2023 Patient encounter procedure [facility], [facility] Work Phone: Start: 09-13-2023 Refill Mattie Somers BRAID CUTTER .DEICER REPAIRER Work Phone: Internal Medicine [place] Comment on above: Refill Request Start: 08-28-2023 Refill Emanuel Palomares BRAID CUTTER.DEICER REPAIRER Work Phone: Rheumatology Comment on above: Refill Request Start: 04-17-2023 Refill Mattie Somers BRAID CUTTER .DEICER REPAIRER Work Phone: Internal Medicine [place] [facility] Comment on above: Refill Request Start: 04-13-2023 End: 04-13-2023 ambulatory [facility] Work Phone: Start: 04-13-2023 End: 04-13-2023 Patient encounter procedure [facility], [facility] Work Phone: Start: 03-24-2023 End: 03-24-2023 Patient encounter procedure Darrell Jack MD Work Phone: Rheumatology Comment on above: Inflammatory arthrit is (Primary Dx); Long-term use of Plaquenil; Osteoarthritis of multiple joints, unspecified osteoarthritis type Start: 02-26-2023 End: 02-26-2023 Patient encounter procedure Mattie Somers APRN.DEICER REPAIRER Work Phone: Internal Medicine [place] Comment on above: Essential hypertensi on (Primary Dx); Mixed hyperlipidemia; Lupus erythematosus, unspecified form; Prediabetes; Acquired hypothyroidism; Depression with anxiety; Gastroesophageal reflux disease, unspecified whether esophagitis present; Travel advice encounter; Need for influenza vaccination Start: 02-09-2023 ambulatory David Perez Work Phone: Internal Medicine [facility] [place] Start: 01-22-2023 Refill Darrell aJck MD Work Phone: Rheumatology Comment on above: Refill Request Start: 12-28-2022 Refill Rajiv Frausto Work Phone: Neurology Comment on above: Refill Request Start: 11-23-2022 End: 11-23-2022 Subsequent hospital visit by physician [facility] [place] Meneses Work Phone: Radiology Comment on above: Bilateral foot pain [M79.671, M79.672] Start: 10-08-2022 End: 10-08-2022 Patient encounter procedure Emanuel Palomares APRN.DEICER REPAIRER Work Phone: Rheumatology Comment on above: Inflammatory arthrit is (Primary Dx); Osteoarthritis of multiple joints, unspecified osteoarthritis type; Encounter for long-term (current) use of NSAIDs Start: 09-25-2022 Refill Mattie Somers APRN .DEICER REPAIRER Work Phone: Internal Medicine [place] Comment on above: Refill Request Start: 08-25-2022 End: 08-25-2022 Patient encounter procedure David Chicas MD Work Phone: Internal Medicine [place] Comment on above: Insulin resistance ( Primary Dx); Metabolic syndrome; Prediabetes; Morbid obesity (HCC); Breast cancer screening by mammogram; Essential hypertension; Hyperlipidemia, unspecified hyperlipidemia type; WHITNEY (dyspnea on exertion) Start: 07-20-2022 End: 07-20-2022 Patient encounter procedure Prachi Cuadra BRAID CUTTER.DEICER REPAIRER Work Phone: Cardiology Comment on above: Essential hypertensi on (Primary Dx); Palpitations; Hyperlipidemia, unspecified hyperlipidemia type; Obesity (BMI 35.0-39.9 without comorbidity); Elevated hemoglobin A1c Start: 07-09-2022 Orders Only Prachi mccann BRAID CUTTER.DEICER REPAIRER Work Phone: [facility] Comment on above: Results Start: 06-25-2022 End: 06-25-2022 Patient encounter procedure Emanuel Palomares BRAID CUTTER.DEICER REPAIRER Work Phone: Rheumatology Comment on above: Inflammatory arthrit is (Primary Dx); Osteoarthritis of multiple joints, unspecified osteoarthritis type; Long-term use of Plaquenil Start: 06-09-2022 Telephone encounter Sara unger BRAID CUTTER.DEICER REPAIRER Work Phone: [facility] Comment on above: Results Start: 05-01-2022 End: 05-01-2022 Patient encounter procedure Chemo Christie MD Work Phone: [facility] Comment on above: Throat pain (Primary Dx) Start: 04-21-2022 Refill David Perez Work Phone: Internal Medicine [place] Comment on above: Refill Request Start: 04-06-2022 End: 04-06-2022 ambulatory [facility] Work Phone: Start: 04-06-2022 End: 04-06-2022 Patient encounter procedure [facility] Start: 04-03-2022 Telephone encounter Anny mccann PA-C Work Phone: [facility] Comment on above: Results Start: 04-02-2022 End: 04-02-2022 Subsequent hospital visit by physician [facility] Work Phone: Radiology Comment on above: Groin pain, right [R 10.31] Start: 04-02-2022 End: 04-02-2022 Patient encounter procedure Anny Iqbal PA-C Work Phone: [facility] Comment on above: Groin pain, right (P rimary Dx) Start: 03-18-2022 ambulatory David Perez Work Phone: Internal Medicine [facility] Comment on above: Prescription Start: 03-05-2022 End: 03-05-2022 Patient encounter procedure Rajiv Perkins Isaac Work Phone: Neurology Comment on above: Migraine without aur a and without status migrainosus, not intractable (Primary Dx); 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Start: 02-27-2022 Telephone encounter Darrell Zapata MD Work Phone: Rheumatology Comment on above: Medication Problem Start: 02-26-2022 Telephone encounter David killian MD Work Phone: Internal Medicine [employer] [facility] Comment on above: Insurance Authorizat ion Start: 02-25-2022 End: 02-25-2022 ambulatory Darrell Jack MD Work Phone: Rheumatology Comment on above: Lupus (HCC) (Primary Dx); Long-term use of Plaquenil; Pain in joint, multiple sites; Long-term use of immunosuppressant medication; Inflammatory arthritis Start: 02-25-2022 End: 02-25-2022 Telemedicine consultation with patient Darrell Jack MD Work Phone: [facility] Start: 02-25-2022 End: 02-25-2022 Patient encounter procedure [...] 12-23-2021 Subsequent hospital visit by physician [facility] Work Phone: Radiology Comment on above: Lupus [M32.9] Start: 12-02-2021 Refill David Perez Work Phone: Internal Medicine [place] [facility] Comment on above: Refill Request; Refi ll Request Start: 09-24-2021 Refill Prachi mccann BRAID CUTTER.DEICER REPAIRER Work Phone: Cardiology Comment on above: Refill Request Start: 09-20-2021 Refill Leyda Duncan [place] Work Phone: Internal Medicine [facility] Comment on above: Refill Request Start: 09-08-2021 ambulatory David Perez Work Phone: Internal Medicine [place] [facility] Comment on above: Levoxyl Start: 09-02-2021 Refill David Perez Work Phone: Internal Medicine [place] Comment on above: Refill Request Start: 02-19-2021 End: 02-19-2021 Subsequent hospital visit by physician [facility] Work Phone: Radiology Comment on above: Post-acute sequelae of COVID-19 ([facility]) [B94.8] Procedures Date Procedure Procedure Detail Performing Clinician Start: 02-12-2025 Radex sacrum & coccy x minimum [address] David Chicas MD Work Phone: Start: 10-19-2024 Lipid 1996 panel - S rhea or Plasma Darrell Jack MD Work Phone: Start: 05-18-2024 Us compl joint r-t w /image documentation Darrell Jack MD Work Phone: Start: 12-10-2023 Lipid 1996 panel - S rhea or Plasma Mattie Somers BRAID CUTTER.DEICER REPAIRER Work Phone: Start: 11-08-2023 Ecg routine ecg [...] YR, QUADRIVALENT (AFLURIA, FLULAVAL, FLUZONE) Mattie Somers BRAID CUTTER.DEICER REPAIRER Work Phone: Start: 12-08-2022 Mammography Rajiv Isaac DO Work Phone: Start: 11-23-2022 Radex foot complete minimum 3 views Rivas Beck Work Phone: Start: 11-23-2022 Lipid 1996 panel - S rhea or Plasma David Chicas MD Work Phone: Start: 05-01-2022 STREP A MOLECULAR (POC) Corey Pham BRAID CUTTER.DEICER REPAIRER Work Phone: Start: 04-06-2022 CT of chest Start: 04-02-2022 Radex hip unilateral with pelvis 2-3 views Anny Iqbal PA-C Work Phone: Start: 02-24-2022 US HAND/WRIST SYNOVI AL SCREEN RT Darrell Jack MD Work Phone: Start: 12-23-2021 Radex spine lumbosac ral 2/3 views Darrell Jack MD Work Phone: Start: 10-28-2021 Mammography Refugio elizalde [facility] Start: 02-19-2021 Radiologic exam ches t 2 views Carlita Broussard BRAID CUTTER.DEICER REPAIRER Work Phone: Start: 11-14-2020 Mammography David killian MD Work Phone: Start: 12-10-2017 Colonoscopy David killian MD Work Phone: Gallbladder structur e (body structure) SARA VASSAS DO Plan of Treatment Date Care Activity Detail Author Start: 05-11-2033 Urine microalbumin profile DTaP,Tdap,Td Vaccine (4 - Td or Tdap) [facility] Start: 10-19-2029 Lipid panel Lipid Screening [facility] Start: 12-09-2028 Lipid panel Lipid Screening [facility] Start: 12-11-2027 Colonoscopy COLONOSCOPY [facility] Start: 12-11-2027 COLORECTAL CANCER SCREENING COLORECTAL CANCER SCREENING [facility] Start: 12-11-2027 Screening for malignant neoplasm of colon [facility] Start: 11-24-2027 Lipid 1996 panel - Serum or Plasma Lipid Screening [facility] Start: 11-24-2027 Lipid panel Lipid Screening [facility] Start: 11-24-2027 LIPID SCREEN LIPID SCREEN [facility] Start: 07-08-2027 LIPID SCREEN LIPID SCREEN [facility] Start: 06-26-2027 Diabetes Screening Diabetes Screening [facility] Start: 06-15-2027 Diabetes Screening Diabetes Screening [facility] Start: 02-20-2027 LIPID SCREEN LIPID SCREEN [facility] Start: 12-09-2026 Diabetes Screening Diabetes Screening [facility] Start: 08-13-2026 LIPID SCREEN LIPID SCREEN [facility] Start: 06-04-2026 Diabetes Screening Diabetes Screening [facility] Start: 02-09-2026 Diabetes Screening Diabetes Screening [facility] Start: 12-25-2025 Annual PCP Team Chronic Disease Visit Annual PCP Team Chronic Disease Visit [facility] Start: 11-24-2025 Annual PCP Team Chronic Disease Visit Annual PCP Team Chronic Disease Visit [facility] Start: 11-19-2025 End: 11-19-2025 Follow-up encounter 11/19/2025 1:00 PM EDT [facility] Rheumatology [id number] [place] [id number] Darrell Jack MD [address] [place] [address] FOLLOW UP Rheumatology Comment on above: FOLLOW UP Start: 11-19-2025 End: 11-19-2025 Patient encounter procedure 11/19/2025 11:20 AM EDT Office Visit Cardiology [address] [place] [address] Felix Ornelas MD [address] [facility] [place] [address] 1 year follow up Cardiology Comment on above: 1 year follow up Start: 10-27-2025 Annual PCP Team Chronic Disease Visit Annual PCP Team Chronic Disease Visit [facility] Start: 10-25-2025 Annual PCP Team Chronic Disease Visit Annual PCP Team Chronic Disease Visit [facility] Start: 10-16-2025 Annual PCP Team Chronic Disease Visit Annual PCP Team Chronic Disease Visit [facility] Start: 07-27-2025 Annual PCP Team Chronic Disease Visit Annual PCP Team Chronic Disease Visit [facility] Start: 07-23-2025 End: 07-23-2025 Follow-up encounter 07/23/2025 11:40 AM EST [facility] Rheumatology [address] [place] [address] Darrell Jack MD [address] [place] [address] FOLLOW UP Rheumatology Comment on above: FOLLOW UP Start: 07-08-2025 DIABETES SCREEN DIABETES SCREEN [facility] Start: 06-26-2025 Annual PCP Team Chronic Disease Visit Annual PCP Team Chronic Disease Visit [facility] Start: 04-04-2025 Annual PCP Team Chronic Disease Visit Annual PCP Team Chronic Disease Visit [facility] Start: 03-27-2025 BP Controlled (<130/80) BP Controlled (<130/80) [facility] Start: 03-27-2025 End: 03-27-2025 Patient encounter procedure Rheumatology Comment on above: Follow up Start: 03-26-2025 End: 03-26-2025 Patient encounter procedure 03/26/2025 1:00 PM EDT Office Visit Internal Medicine [facility] [address] [place], [place] [id number] Mattie Somers APRN.DEICER REPAIRER [address] [place], [place] [id number] 3 month follow up Internal Medicine [place] Comment on above: 3 month follow up Start: 03-15-2025 Screening for malignant neoplasm of breast Mammogram Screening [facility] Start: 02-20-2025 End: 02-20-2025 Follow-up encounter 02/20/2025 2:40 PM EDT [facility] Rheumatology [address] [place] [address] Darrell Jack MD [address] [place] [address] Follow up Rheumatology Comment on above: Follow up Start: 02-20-2025 DIABETES SCREEN DIABETES SCREEN [facility] Start: 01-29-2025 Influenza vaccination Influ[facility] Vacc[facility] (#[facility]) [facility] Start: 01-02-2025 End: 01-02-2025 Follow-up encounter 01/02/2025 1:00 PM EDT [facility] Neurology [address] [place] [address] Eddie Wilson APRN.DEICER REPAIRER [address] [place] [address] Follow up Neurology Comment on above: Follow up Start: 12-22-2024 End: 12-22-2024 Patient encounter procedure 12/22/2024 1:20 PM EDT Office Visit Internal Medicine [facility] [address] [place], [place] [id number] Mattie Somers APRN.DEICER REPAIRER [address] [place], [place] [id number] 4 week adipex Internal Medicine [facility] Comment on above: 4 week adipex Start: 12-14-2024 Annual PCP Team Chronic Disease Visit Annual PCP Team Chronic Disease Visit [facility] Start: 12-14-2024 Covid-19 Vaccine ( season) Covid-19 Vaccine ( season) [facility] Comment on above: Postponed from 01/29/2023 (Declined at t his time) Start: 12-14-2024 Hepatitis B Vaccine (1 of 3 - 19+ 3-dose series) Hepatitis B Vaccine (1 of 3 - 19+ 3-dose series) [facility] Comment on above: Postponed from 1984 (Declined at t his time) Start: 12-14-2024 Screening for malignant neoplasm of breast Mammogram Screening [facility] Comment on above: Postponed from 12/09/2023 (Declined at t his time) Start: 11-24-2024 End: 11-24-2024 Patient encounter procedure 11/24/2024 1:00 PM EDT Office Visit Internal Medicine [place] [address] [place], [place] [id number] Mattie Somers APRN.DEICER REPAIRER [address] [place], [place] [id number] 4 week follow up Internal Medicine [facility] Comment on above: 4 week follow up Start: 11-21-2024 End: 11-21-2024 Follow-up encounter 11/21/2024 2:40 PM EDT [facility] Rheumatology [address] [place] [address] Darrell Jack MD [address] [place] [address] Follow up Rheumatology Comment on above: Follow up Start: 11-20-2024 End: 11-20-2024 Patient encounter procedure Cardiology Comment on above: 1 yr follow up Start: 10-27-2024 End: 10-27-2024 Patient encounter procedure 10/27/2024 2:40 PM EDT Office Visit Internal Medicine [facility] [address] [place], [place] [phone] Mattie Somers APRN.DEICER REPAIRER [address] [place] [address] Cellulitis follow up Internal Medicine [place] Comment on above: Cellulitis follow up Start: 10-25-2024 End: 10-25-2024 Patient encounter procedure 10/25/2024 12:20 PM EDT Office Visit Internal Medicine [facility] [address] [place] [address] Mattie Somers APRN.DEICER REPAIRER [address] [place] [address] 3 month follow up Internal Medicine [place] Comment on above: 3 month follow up Start: 10-13-2024 [facility] Start: 10-10-2024 End: 01-09-2025 Lipid 1996 panel - Serum or Plasma LIPID PANEL, FASTING Lab Routine Hyperlipidemia Expected: 10/10/2024, Expires: 01/09/2025 [facility] Work Phone: Comment on above: Expected: 10/10/2024, Expires: Start: 09-26-2024 HPV TESTING HPV TESTING [facility] Start: 09-26-2024 Screening for malignant neoplasm of cervix HPV Testing [facility] Start: 09-20-2024 End: 09-20-2024 Follow-up encounter 09/20/2024 2:40 PM EDT [facility] Rheumatology [address] [place] [address] Darrell Jack MD [address] [place] [address] Follow up Rheumatology Comment on above: Follow up Start: 08-13-2024 DIABETES SCREEN DIABETES SCREEN [facility] Start: 07-27-2024 End: 07-27-2024 Patient encounter procedure 07/27/2024 11:20 AM EST Office Visit Internal Medicine [facility] [address] [place] [address] Mattie Somers APRN.DEICER REPAIRER [address] [place] [address] Follow up Internal Medicine [place] Comment on above: Follow up Start: 07-05-2024 End: 07-05-2024 ambulatory 07/05/2024 2:30 PM EST [facility] Neurology [address] [place] [address] Eddie Wilson, BRAID CUTTER.DEICER REPAIRER [address] [place] [address] Medication increase Neurology Comment on above: Medication increase Start: 06-26-2024 End: 09-25-2024 25-hydroxyvitamin D3 [Mass/volume] in Serum or Plasma [facility] Comment on above: Expected: 06/26/2024, Expires: Start: 06-26-2024 End: 09-25-2024 Cobalamin (Vitamin B12) [Mass/volume] in Serum or Plasma [facility] Comment on above: Expected: 06/26/2024, Expires: Start: 06-26-2024 End: 09-25-2024 Hemoglobin A1c in Blood [facility] Work Phone: Comment on above: Expected: 06/26/2024, Expires: Start: 06-26-2024 End: 09-25-2024 Thyrotropin [Units/volume] in Serum or Plasma [facility] Comment on above: Expected: 06/26/2024, Expires: Start: 06-26-2024 End: 09-25-2024 Thyroxine (T4) free [Mass/volume] in Serum or Plasma [facility] Comment on above: Expected: 06/26/2024, Expires: Start: 06-26-2024 End: 09-25-2024 Triiodothyronine (T3) Free [Mass/volume] in Serum or Plasma [facility] Comment on above: Expected: 06/26/2024, Expires: Start: 06-26-2024 End: 06-26-2024 Patient encounter procedure 06/26/2024 11:00 AM EST Office Visit Internal Medicine [facility] [address] [facility] [place] [address] Mattie Somers APRN.DEICER REPAIRER [address] [facility] [place] [address] 6 month follow up Internal Medicine [place] Comment on above: 6 month follow up Start: 06-21-2024 End: 06-21-2024 Follow-up encounter 06/21/2024 2:20 PM EST [facility] Rheumatology [address] [place] [address] [place] [address] [place] [address] Virtual Follow up Rheumatology Comment on above: Virtual Follow up Start: 06-16-2024 Annual PCP Team Chronic Disease Visit Annual PCP Team Chronic Disease Visit [facility] Start: 06-16-2024 End: 06-16-2024 Patient encounter procedure 06/16/2024 1:20 PM EST Office Visit Internal Medicine [facility] [address] [facility] [place] [address] Mattie Somers APRN.DEICER REPAIRER [address] [facility] [place] [address] 6 month follow up Internal Medicine [place] Comment on above: 6 month follow up Start: 05-31-2024 Medicare Advantage Annual Wellness Visit Medicare Advantage Annual Wellness Visit [facility] Start: 05-30-2024 End: 08-29-2024 Basic metabolic 2000 panel - Serum or Plasma BASIC METABOLIC PANEL Lab Routine Essential hypertension Expected: 05/30/2024, Expires: 08/29/2024 [facility] Work Phone: Comment on above: Expected: 05/30/2024, Expires: Start: 05-18-2024 End: 05-18-2024 Patient encounter procedure 05/18/2024 12:45 PM EST Appointment Radiology [address] [address] US HAND/WRIST SYNOVIAL SCREEN RT+LT Radiology Comment on above: US HAND/WRIST SYNOVIAL SCREEN RT+LT Start: 04-04-2024 End: 04-04-2024 Follow-up encounter 04/04/2024 1:45 PM EST [facility] Neurology [address] [place] [address] Eddie Wilson, BRAID CUTTER.DEICER REPAIRER [address] [place] [address] Follow up Neurology Comment on above: Follow up Start: 03-27-2024 End: 03-27-2025 Alanine aminotransferase [Enzymatic activity/volume] in Serum or Plasma [facility] Comment on above: Expected: 03/27/2024, Expires: Start: 03-27-2024 End: 03-27-2025 Aspartate aminotransferase [Enzymatic activity/volume] in Serum or Plasma [facility] Comment on above: Expected: 03/27/2024, Expires: Start: 03-27-2024 End: 03-27-2025 CREATININE BLD [facility] Work Phone: Comment on above: Expected: 03/27/2024, Expires: Start: 03-27-2024 End: 03-27-2024 Patient encounter procedure 03/27/2024 1:40 PM EDT Office Visit Rheumatology [address] [place] [address] [place] [address] [place] [address] follow up Rheumatology Comment on above: follow up Start: 03-16-2024 End: 03-16-2024 Follow-up encounter 03/16/2024 1:00 PM EDT [facility] Neurology [address] [place] [address] Eddie Wilson APRN.DEICER REPAIRER [address] [place] [address] Follow up Neurology Comment on above: Follow up Start: 02-27-2024 Annual PCP Team Chronic Disease Visit Annual PCP Team Chronic Disease Visit [facility] Start: 02-27-2024 Shingrix Vaccine (1 of 2) Shingrix Vaccine (1 of 2) [facility] Comment on above: Postponed from 2015 (Declined at t his time) Start: 01-30-2024 Covid-19 Vaccine ( season) Covid-19 Vaccine ( season) [facility] Start: 01-30-2024 Covid-19 Vaccine ( season) Covid-19 Vaccine ( season) [facility] Start: 01-30-2024 Influenza vaccination Influenza Vaccine (#1) [facility] Start: 12-15-2023 End: 12-15-2023 Patient encounter procedure 12/15/2023 2:00 PM EDT Office Visit Internal Medicine [facility] [address] [place] [address] Mattie Somers APRN.DEICER REPAIRER [address] [place] [address] 6 month follow up Internal Medicine [facility] Comment on above: 6 month follow up Start: 12-09-2023 Mammography [facility] Start: 12-09-2023 Screening for malignant neoplasm of breast Mammogram Screening [facility] Start: 11-30-2023 End: 02-29-2024 Hemoglobin A1c in Blood HEMOGLOBIN A1C Lab Routine Prediabetes Expected: 11/30/2023, Expires: 02/29/2024 [facility] Work Phone: Comment on above: Expected: 11/30/2023, Expires: Start: 11-30-2023 End: 02-29-2024 Lipid 1996 panel - Serum or Plasma LIPID PANEL BASIC Lab Routine Hyperlipidemia Expected: 11/30/2023, Expires: 02/29/2024 [facility] Comment on above: Expected: 11/30/2023, Expires: Start: 11-30-2023 End: 02-29-2024 Thyrotropin [Units/volume] in Serum or Plasma THYROID STIMULATING HORMONE Lab Routine Hypothyroidism Expected: 11/30/2023, Expires: 02/29/2024 [facility] Comment on above: Expected: 11/30/2023, Expires: Start: 11-08-2023 End: 11-08-2023 Patient encounter procedure 11/08/2023 2:00 PM EDT Office Visit Cardiology [address] [place] [id number] Felix Ornelas MD [address] [facility], [address] [place], [place] [id number] 1 year follow up rescheduled from 07/05/23 Cardiology Comment on above: 1 year follow up rescheduled from 07/05/23 Start: 10-27-2023 End: 10-27-2023 Patient encounter procedure 10/27/2023 3:00 PM EDT Appointment Radiology [address] [place] [address] MRI LUMBAR SPINE WO IVCON Radiology Comment on above: MRI LUMBAR SPINE WO IVCON Start: 08-26-2023 ANNUAL PCP TEAM CHRONIC DISEASE VISIT ANNUAL PCP TEAM CHRONIC DISEASE VISIT [facility] Start: 06-08-2023 BP CONTROLLED (<130/80) BP CONTROLLED (<130/80) [facility] in Start: 04-19-2023 End: 07-19-2023 25-hydroxyvitamin D3 [Mass/volume] in Serum or Plasma VITAMIN D 25 HYDROXY Lab Routine Vitamin D deficiency Expected: 04/19/2023, Expires: 07/19/2023 [facility] Work Phone: Comment on above: Expected: 04/19/2023, Expires: Start: 02-25-2023 ANNUAL PCP TEAM CHRONIC DISEASE VISIT ANNUAL PCP TEAM CHRONIC DISEASE VISIT [facility] Start: 02-19-2023 End: 10-08-2023 Alanine aminotransferase [Enzymatic activity/volume] in Serum or Plasma ALT/SGPT Lab Routine Inflammatory arthritis Encounter for long-term (current) use of NSAIDs Expected: 02/19/2023 (Approximate), Expires: 10/08/2023 [facility] Work Phone: Comment on above: Expected: 02/19/2023 (Approximate), Expi res: 10/08/2023 Start: 02-19-2023 End: 10-08-2023 Albumin [Mass/volume] in Serum or Plasma ALBUMIN BLD Lab Routine Inflammatory arthritis Encounter for long-term (current) use of NSAIDs Expected: 02/19/2023 (Approximate), Expires: 10/08/2023 [facility] Work Phone: Comment on above: Expected: 02/19/2023 (Approximate), Expi res: 10/08/2023 Start: 02-19-2023 End: 10-08-2023 Aspartate aminotransferase [Enzymatic activity/volume] in Serum or Plasma AST/SGOT BLD Lab Routine Inflammatory arthritis Encounter for long-term (current) use of NSAIDs Expected: 02/19/2023 (Approximate), Expires: 10/08/2023 [facility] Work Phone: Comment on above: Expected: 02/19/2023 (Approximate), Expi res: 10/08/2023 Start: 02-19-2023 End: 10-08-2023 CBC W Auto Differential panel - Blood CBC + DIFF Lab Routine Inflammatory arthritis Encounter for long-term (current) use of NSAIDs Expected: 02/19/2023 (Approximate), Expires: 10/08/2023 [facility] Work Phone: Comment on above: Expected: 02/19/2023 (Approximate), Expi res: 10/08/2023 Start: 02-19-2023 End: 10-08-2023 CREATININE BLD CREATININE BLD Lab Routine Inflammatory arthritis Encounter for long-term (current) use of NSAIDs Expected: 02/19/2023 (Approximate), Expires: 10/08/2023 [facility] Work Phone: Comment on above: Expected: 02/19/2023 (Approximate), Expi res: 10/08/2023 Start: 01-29-2023 Covid-19 Vaccine () Covid-19 Vaccine () [facility] Start: 01-29-2023 Influenza vaccination [facility] Start: 10-28-2022 Mammography MAMMOGRAM [facility] Start: 10-17-2022 End: 12-17-2022 Lipid 1996 panel - Serum or Plasma LIPID PANEL BASIC Lab Routine Hyperlipidemia, unspecified hyperlipidemia type Expected: 10/17/2022, Expires: 12/17/2022 [facility] Work Phone: Comment on above: Expected: 10/17/2022, Expires: Start: 08-26-2022 ANNUAL PCP TEAM CHRONIC DISEASE VISIT ANNUAL PCP TEAM CHRONIC DISEASE VISIT [facility] Start: 08-20-2022 End: 06-23-2023 Alanine aminotransferase [Enzymatic activity/volume] in Serum or Plasma ALT/SGPT Lab Routine Inflammatory arthritis Osteoarthritis of multiple joints, unspecified osteoarthritis type Long-term use of Plaquenil Expected: 08/20/2022 (Approximate), Expires: 06/23/2023 [facility] Work Phone: Comment on above: Expected: 08/20/2022 (Approximate), Expi res: 06/23/2023 Start: 08-20-2022 End: 06-23-2023 Albumin [Mass/volume] in Serum or Plasma ALBUMIN BLD Lab Routine Inflammatory arthritis Osteoarthritis of multiple joints, unspecified osteoarthritis type Long-term use of Plaquenil Expected: 08/20/2022 (Approximate), Expires: 06/23/2023 [facility] Work Phone: Comment on above: Expected: 08/20/2022 (Approximate), Expi res: 06/23/2023 Start: 08-20-2022 End: 06-23-2023 Aspartate aminotransferase [Enzymatic activity/volume] in Serum or Plasma AST/SGOT BLD Lab Routine Inflammatory arthritis Osteoarthritis of multiple joints, unspecified osteoarthritis type Long-term use of Plaquenil Expected: 08/20/2022 (Approximate), Expires: 06/23/2023 [facility] Work Phone: Comment on above: Expected: 08/20/2022 (Approximate), Expi res: 06/23/2023 Start: 08-20-2022 End: 06-23-2023 CBC W Auto Differential panel - Blood CBC + DIFF Lab Routine Inflammatory arthritis Osteoarthritis of multiple joints, unspecified osteoarthritis type Long-term use of Plaquenil Expected: 08/20/2022 (Approximate), Expires: 06/23/2023 [facility] Work Phone: Comment on above: Expected: 08/20/2022 (Approximate), Expi res: 06/23/2023 Start: 08-20-2022 End: 06-23-2023 CREATININE BLD CREATININE BLD Lab Routine Inflammatory arthritis Osteoarthritis of multiple joints, unspecified osteoarthritis type Long-term use of Plaquenil Expected: 08/20/2022 (Approximate), Expires: 06/23/2023 [facility] Work Phone: Comment on above: Expected: 08/20/2022 (Approximate), Expi res: 06/23/2023 Start: 08-11-2022 PAP TESTING PAP TESTING [facility] Start: 08-11-2022 Screening for malignant neoplasm of cervix Pap Testing [facility] Start: 05-01-2022 End: 05-15-2022 Influenza virus A and B RNA and SARS-CoV-2 (COVID-19) N gene panel - Respiratory specimen by LC with probe detection COVID WITH FLUA+B, ROUTINE Microbiology Routine Throat pain Expected: 05/01/2022, Expires: 05/15/2022 [facility] Work Phone: Comment on above: Expected: 05/01/2022, Expires: Start: 02-25-2022 End: 04-27-2022 Chronic hepatitis differentiation between hepatitis B and C virus panel - Serum or Plasma HEP REMOTE PANEL BL Lab Routine Long-term use of immunosuppressant medication Expected: 02/25/2022, Expires: 04/27/2022 [facility] Work Phone: Comment on above: Expected: 02/25/2022, Expires: 2 Start: 02-25-2022 End: 04-27-2022 Cyclic citrullinated peptide IgG Ab [Units/volume] in Serum or Plasma CCP ANTIBODY IGG Lab Routine Inflammatory arthritis Expected: 02/25/2022, Expires: 04/27/2022 [facility] Work Phone: Comment on above: Expected: 02/25/2022, Expires: 2 Start: 02-25-2022 End: 04-27-2022 HIV 1+2 Ab [Presence] in Serum or Plasma by Immunoassay HIV 1 2 COMBO(AG/AB),WITH REFLEX TO DIFFERENTIATION Lab Routine Screening for HIV (human immunodeficiency virus) Expected: 02/25/2022, Expires: 04/27/2022 [facility] Work Phone: Comment on above: Expected: 02/25/2022, Expires: 2 Start: 01-29-2022 Influenza vaccination INFLUENZA (#1) [facility] Start: 11-14-2021 Mammography MAMMOGRAM [facility] Start: 06-14-2021 COVID-19 VACCINE (4 - Booster for Pfizer series) COVID-19 VACCINE (4 - Booster for Pfizer series) [facility] Start: 05-09-2021 COVID-19 VACCINE (4 - Booster for Pfizer series) COVID-19 VACCINE (4 - Booster for Pfizer series) [facility] Start: 03-02-2021 Urine microalbumin profile [facility] Start: 08-11-2020 Screening for malignant neoplasm of cervix Cervical Cancer Screening [facility] Start: 08-11-2018 Screening for malignant neoplasm of cervix Cervical Cancer Screening [facility] Start: 2015 SHINGRIX VACCINE (1 of 2) SHINGRIX VACCINE (1 of 2) [facility] Start: 2010 COLOGUARD (FIT-DNA) COLOGUARD (FIT-DNA) [facility] Start: [address] COLONOGRAPHY [facility] Start: 2010 FECAL OCCULT BLOOD FECAL OCCULT BLOOD [facility] Start: 2010 Screening for malignant neoplasm of colon [facility] Start: 2010 SIGMOIDOSCOPY SIGMOIDOSCOPY [facility] Start: 04-14-2000 PNEUMOCOCCAL (2 - PCV) PNEUMOCOCCAL (2 - PCV) [facility] Start: 1984 Hepatitis B Vaccine (1 of 3 - 19+ 3-dose series) Hepatitis B Vaccine (1 of 3 - 19+ 3-dose series) [facility] Start: 1984 SHINGRIX VACCINE (1 of 2) SHINGRIX VACCINE (1 of 2) [facility] Start: 1983 Anxiety Screening Anxiety Screening [facility] Start: 1983 BP CONTROLLED (<130/80) BP CONTROLLED (<130/80) [facility] in Start: 1983 HIV SCREENING HIV SCREENING [facility] Start: 1965 HEPATITIS B (1 of 3 - 3-dose series) HEPATITIS B (1 of 3 - 3-dose series) [facility] Start: 1965 Hepatitis B Vaccine (1 of 3 - 3-dose series) Hepatitis B Vaccine (1 of 3 - 3-dose series) [facility] End: 06-21-2025 Alanine aminotransferase [Enzymatic activity/volume] in Serum or Plasma ALANINE AMINOTRANSFERASE / SGPT Lab Routine Encounter for long-term (current) use of medications 7 Occurrences starting 06/21/2024 until 06/21/2025 [facility] Comment on above: 7 Occurrences starting 06/21/2024 until 06/21/2025 End: 06-21-2025 Aspartate aminotransferase [Enzymatic activity/volume] in Serum or Plasma ASPARTATE AMINOTRANSFERASE/SGOT Lab Routine Encounter for long-term (current) use of medications 7 Occurrences starting 06/21/2024 until 06/21/2025 [facility] Comment on above: 7 Occurrences starting 06/21/2024 until 06/21/2025 End: 06-21-2025 CBC panel - Blood by Automated count COMPLETE BLOOD COUNT Lab Routine Encounter for long-term (current) use of medications 7 Occurrences starting 06/21/2024 until 06/21/2025 [facility] Comment on above: 7 Occurrences starting 06/21/2024 until 06/21/2025 End: 06-21-2025 CREATININE BLD CREATININE BLD Lab Routine Encounter for long-term (current) use of medications 7 Occurrences starting 06/21/2024 until 06/21/2025 [facility] Work Phone: Comment on above: 7 Occurrences starting 06/21/2024 until 06/21/2025 CT Chest [facility] End: 01-18-2026 DBT Breast - bilateral screening JAZMYNE SCREENING W FACUNDO Radiology Routine Encounter for screening mammogram for breast cancer 1 Occurrences starting 12/19/2024 until 01/18/2026 [facility] Work Phone: Comment on above: 1 Occurrences starting 12/19/2024 until 01/18/2026 End: 07-14-2023 ECG COMPLETE ECG COMPLETE ECG Routine Essential hypertension Palpitations Hyperlipidemia, unspecified hyperlipidemia type 1 Occurrences starting 07/14/2022 until 07/14/2023 [facility] Work Phone: Comment on above: 1 Occurrences starting 07/14/2022 until 07/14/[address] [facility] Work Phone: Comment on above: Ordered: 11/08/2023 End: 09-24-2023 JAZMYNE SCREENING W FACUNDO JAZMYNE SCREENING W FACUNDO Radiology Routine Breast cancer screening by mammogram 1 Occurrences starting 08/25/2022 until 09/24/2023 [facility] Work Phone: Comment on above: 1 Occurrences starting 08/25/2022 until 09/24/2023 Patient Education ED [facility] Work Phone: Patient referral [facility] Work Phone: End: 04-02-2023 US LEG VEIN DVT UNL VAS LAB US LEG VEIN DVT UNL VAS LAB Vascular Lab STAT Groin pain, right 1 Occurrences starting 04/02/2022 until 04/02/2023 [facility] Work Phone: Comment on above: 1 Occurrences starting 04/02/2022 until 04/02/2023 End: 04-27-2025 US Upper extremity - left US HAND/WRIST SYNOVIAL SCREEN LEFT Radiology Routine Pain in joint, multiple sites 1 Occurrences starting 03/27/2024 until 04/27/2025 [facility] Comment on above: 1 Occurrences starting 03/27/2024 until 04/27/2025 End: 04-27-2025 US Upper extremity - right US HAND/WRIST SYNOVIAL SCREEN RIGHT Radiology Routine Pain in joint, multiple sites 1 Occurrences starting 03/27/2024 until 04/27/2025 [facility] Comment on above: 1 Occurrences starting 03/27/2024 until 04/27/2025 [facility] Immunizations Immunization Date Immunization Notes Care Provider Fa [facility] 05-10-2024 influenza, injectabl e, madin anisha canine kidney, preservative free David Chicas MD Work Phone: [facility] 05-10-2024 influenza virus vaccine, unspecified formulation Darrell Jack MD Work Phone: [facility] 11-11-2023 hepatitis A vaccine, adult dosage David Chicas MD Work Phone: [facility] 05-11-2023 hepatitis A vaccine, adult dosage David Chicas MD Work Phone: [facility] 05-11-2023 measles, mumps and rubella virus vaccine David Chicas MD Work Phone: [facility] 05-11-2023 tetanus toxoid, redu stanley diphtheria toxoid, and acellular pertussis vaccine, adsorbed David Chicas MD Work Phone: [facility] 04-26-2023 yellow fever vaccine David Chicas MD Work Phone: [facility] 02-26-2023 influenza, injectabl e, quadrivalent, contains preservative Mattie Somers BRAID CUTTERUDAY Work Phone: [facility] 02-26-2023 influenza virus vaccine, unspecified formulation David Chicas MD Work Phone: [facility] 07-07-2022 influenza virus vaccine, unspecified formulation David Chicas MD Work Phone: [facility] 02-25-2022 pneumococcal (PCV20) vaccine, 20 valent (PREVNAR 20) David Chicas MD Work Phone: [facility] Work Phone: 02-25-2022 pneumococcal Conjuga te, unspecified formulation David Chicas MD Work Phone: [facility] Work Phone: 03-14-2021 COVID-19 vaccine, ag e 12+ yr (PFIZER-BIONTECH - PURPLE TOP) David Chicas MD Work Phone: [facility] 02-25-2021 influenza, injectabl e, quadrivalent, contains preservative David Chicas MD Work Phone: [facility] Work Phone: 08-15-2020 COVID-19 vaccine, ag e 12+ yr (PFIZER-BIONTECH - PURPLE TOP) David Chicas MD Work Phone: [facility] Work Phone: 02-21-2020 influenza, injectabl e, quadrivalent, contains preservative David Chicas MD Work Phone: [facility] Work Phone: 03-13-2019 influenza virus vaccine, unspecified formulation David Chicas MD Work Phone: [facility] 02-25-2018 influenza, injectabl e, quadrivalent, preservative free David Chicas MD Work Phone: [facility] Work Phone: 04-05-2013 influenza virus vaccine, unspecified formulation David Chicas MD Work Phone: [facility] 04-15-2011 influenza virus vaccine, unspecified formulation David Chicas MD Work Phone: [facility] 03-02-2011 tetanus toxoid, redu stanley diphtheria toxoid, and acellular pertussis vaccine, adsorbed David Chicas MD Work Phone: [facility] 05-18-2005 influenza virus vaccine, unspecified formulation David Chicas MD Work Phone: [facility] 04-14-1999 pneumococcal polysaccharide vaccine, 23 valent David Chicas MD Work Phone: [facility] Work Phone: 05-06-1998 diphtheria and tetan us toxoids, adsorbed for pediatric use David Chicas MD Work Phone: [facility] Work Phone: NEGATED: Highlighted row has not occurred!02-25-2021 COVID-19 vaccine, age 12+ yr ([employer] - PURPLE TOP) David Chicas MD Work Phone: [facility] Work Phone: Payers Date Payer Category Payer Medicare (Managed Care) MMO [employer] PPO Member Subscriber Plan / Payer (Effective 2024-Present) Name: Berenice Givens Relation to Subscriber: Self Name: Berenice Givens Payer ID: Not on file Type: PPO Address: [place] [id number] 2024 Medicare [id number] 2024 Unknown [id number] 2024 Self-pay [id number] 2021 Private Health Insurance MMO [employer] PPO [id number] 2021 Unknown [id number] 2019 Unknown MMO MMO [employer] PLUS [id number] 2019-Present [phone] [address] [place] [address] PPO [id number] 2019 Unknown [id number] 2005 Unknown [id number] 1965 Unknown [id number] Unknown [id number] Unknown [id number] Unknown [id number] Unknown [id number] Unknown [id number] Unknown [id number] Unknown [id number] Unknown [id number] Unknown [id number] Social History Date Type Detail Facility Start: 07-21-2017 End: 10-13-2024 Tobacco smoking status NHIS Ex-smoker [facility] Comment on above: 2017 Start: 04-22-1989 End: 04-22-2009 History of tobacco use Current smoker [facility] Start: 04-22-1989 End: 04-22-2009 History of tobacco use Cigarette Smoker [facility] Start: 08-26-2021 End: 11-24-2024 Alcohol intake Current non-drinker of alcohol (finding) [facility] Start: 08-23-2021 End: 08-19-2022 History SDOH Alcohol Frequency 2 [facility] Start: 08-23-2021 History SDOH Alcohol Std Drinks 98 [facility] Start: 08-23-2021 End: 08-19-2022 History SDOH Alcohol Binge 1 [facility] Start: 08-23-2021 End: 08-19-2022 History SDOH Social Connections Phone 5 [facility] Start: 08-23-2021 End: 08-19-2022 History SDOH Social Connections Get Together 3 [facility] Start: 08-23-2021 History SDOH Physica l Activity MPS 6 [facility] Start: 11-13-2019 Education 12 [facility] Start: 1965 Sex Assigned At Not on file [facility] Start: 01-20-2021 End: 05-01-2022 Exposure to SARS-CoV-2 (event) Not sure [facility] Work Phone: Start: 07-21-2017 End: 10-08-2022 Cigarettes smoked current (pack per day) - Reported 0.5 [facility] Start: 07-21-2017 End: 04-01-2024 Tobacco use and exposure Smokeless tobacco non-user [facility] Work Phone: Start: 12-09-2021 End: 12-09-2022 Tobacco smoking status NHIS Unknown if ever smoked [facility] Start: 1965 Sex Assigned At Female W [facility] Start: 08-19-2022 History SDOH Alcohol Std Drinks 0 [facility] Start: 08-19-2022 End: 10-08-2022 Social connection and isolation panel [facility] Do you belong to any clubs or organizations such as christian groups, popchipss, [employer] or [employer] groups, or school groups? No [facility] Start: 05-01-2012 Attends Club or Organization Meetings Not on file [facility] Are you now , , , , never or living with a partner? [facility] How often to you hav e a drink containing alcohol? Never [facility] Do you feel stress - tense, restless, nervous, or anxious, or unable to sleep at night because your mind is troubled all the time - these days [OSQ] To some extent [facility] (I/We) worried radha er (my/our) food would run out before (I/we) got money to buy more. Never true [facility] Do you belong to any clubs or organizations such as christian groups, popchip[employer], [employer] or athletic groups, or school groups? Yes [facility] How often to you hav e a drink containing alcohol? Monthly or less [facility] Do you feel stress - tense, restless, nervous, or anxious, or unable to sleep at night because your mind is troubled all the time - these days [OSQ] Only a little [facility] How many standard dr inks containing alcohol do you have on a typical day? 1 or 2 [facility] Sex Assigned At Sex [facility] Do you feel stress - tense, restless, nervous, or anxious, or unable to sleep at night because your mind is troubled all the time - these days [OSQ] Not at all [facility] Functional Status Date Assessment Result Facility 12-23-2024 Total score [AUDIT-C] 0 12/24/19 10:16 AM EDT Alfred Salinas [facility] 12-23-2024 How often to you hav e a drink containing alcohol? Never 12/23/2024 10:16 AM EDT UserAlfred Never [facility] 12-23-2024 Functional status Patient does n ot drink 12/23/2024 10:16 AM EDT User, Alfred Patient does not drink [facility] 12-23-2024 How often do you hav e 6 or more drinks on 1 occasion? Never 12/23/2024 10:16 AM EDT UserAlfred Never [facility] 12-18-2024 Total score [AUDIT-C] 0 12/19/19 11:07 AM EDT User, Ezt [facility] 12-18-2024 How often to you hav e a drink containing alcohol? Never 12/18/2024 11:07 AM EDT User, Ezt Never [facility] 12-18-2024 Functional status Patient does n ot drink 12/18/2024 11:07 AM EDT User, Alfred Patient does not drink [facility] 12-18-2024 How often do you hav e 6 or more drinks on 1 occasion? Never 12/18/2024 11:07 AM EDT UserAlfred Never [facility] 04-26-2024 Functional Status Independent [facility] 04-26-2024 Functional Status ID band on, Call device within reach, Bed in low position, Wheels locked, Upper/Half-Length side-rails up, Safety level maintained [facility] 07-16-2014 Are you deaf, or do you have serious difficulty hearing No 07/16/2014 3:24 PM Yunier Louise LPN No [facility] 07-16-2014 Are you blind, or do you have serious difficulty seeing, even when wearing glasses No 07/16/2014 3:24 PM Yunier Louise LPN No [facility] 07-16-2014 Do you have serious difficulty walking or climbing stairs No 07/16/2014 3:24 PM Yunier Louise LPN No [facility] 07-16-2014 Do you have difficul ty dressing or bathing No 07/16/2014 3:24 PM Yunier Louise LPN No [facility] 07-16-2014 Because of a physica l, mental, or emotional condition, do you have difficulty doing errands alone such as visiting a physician's office or shopping No 07/16/2014 3:24 PM Yunier Louise LPN No [facility] Mental Status Date Assessment Result Facility 04-26-2024 Mental Status Orientation Oriented x 4 [facility] 07-16-2014 Because of a physica l, mental, or emotional condition, do you have serious difficulty concentrating, remembering, or making decisions No 07/16/2014 3:24 PM Yunier Louise LPN No [facility] Clinical Notes 02-19-2021 to 03-26-2025 Telephone Encounter - Fatimah Sunshine LPN - 01/30/2025 3:34 PM EDTTelephone Encounter - Fatimah Sunshine LPN - 01/30/2025 3:34 PM EDTPatient Instructions Note Date & Type Note Facility 03-26-2025 Note HNO ID: [id number] Author: MATTIE SOMERS APRN.DEICER REPAIRER Service: ? Author Type: Nurse Practitioner Type: Progress Notes Filed: 03/28/2025 13:27 Note Text: CC: Patient presents with: Recheck: 3 month follow up Immunizations: Flu vaccination HPI Berenice Givens is a 60 year old female who presents today for follow up. Recording using [employer] software for draft documentation of the visit was discussed with the patient/authorized insurance service representative; all questions welcomed and answered. Patient/authorized insurance service representative agreed to proceed Berenice Givens is [...] echocardiogram in 2020. - Last seen by regional recruiter in October without concern. - Engages in exercise at [employer], using a bike-like machine due to hip [...] - Noted dyspnea at high elevations in [place], attributed to COVID lungs. Anxiety and Depression: [...] TAKE 2 CAPSULES ONCE DAILY MV with Gjy-Mxmphcyf-Omirru (CENTRUM SILVER) 0.4-300-250 mg-mcg-mcg tab Take 1 tablet by mouth once daily. FAMILY HISTORY Problem Relation Age of Onset Diabetes Mothe (more content not included)... [facility] 02-20-2025 Note HNO ID: [id number] Author: DARRELL JACK MD Service: ? Author Type: Physician Type: Progress Notes Filed: 02/20/2025 14:42 Note Text: On 02/20/2025, I had the pleasure of evaluating Berenice Givens in a follow-up [facility] Rheumatology appointment for inflammatory arthritis. This Team Access Model visit is a virtual encounter utilizing both video and audio components. It required patient-provider interaction for the medical decision making as documented below. My name and active licensure have been communicated. The patient's identity and physical location were verified at the time of this visit. Either the patient or their legal insurance service representative has been informed of the risks [...] before breakfast. lev (more content not included)... [facility] 02-12-2025 Radiology Diagnostic study note [facility] Imaging Services [address] [place] [address] Sacrum-Coccyx min 2 Views MR#: [id number] Acct: [id number] Name: BERENICE GIVENS Rep #: [id number] : 1965 F 59 From: Guillermo Nova MD PCP: Dr. David Chicas MD Status: REG C LINDA Study:Sacrum-Coccyx min 2 Views Date of Exam: 02/12/25 Exam# [id number] Ordering Dr: Robert Bowers MD PROCEDURE: SACRUM-COCCYX [...] the the lower lumbar spine. Reading Location: [place] [address] CC: Dr. Elvia Bowers MD; Dr. David Chicas MD ~ Handkerchief Maker: Signed [facility] 01-30-2025 Telephone encounter Note Patient has been [...] Please advise. Thank you. Fatimah Sunshine LPN. [facility] 01-30-2025 Miscellaneous Notes Patient has been identified [...] Fatimah Sunshine LPN. documented in this encounter [facility] 01-30-2025 Telephone encounter Note Patient has been [...] Please advise. Thank you. Fatimah Sunshine LPN. [facility] 01-30-2025 Miscellaneous Notes Patient has been identified [...] Fatimah Sunshine LPN. documented in this encounter [facility] 01-02-2025 Note HNO ID: [id number] Author: EDDIE WILSON APRN.DEICER REPAIRER Service: ? Author Type: Nurse Practitioner Type: Progress Notes Filed: 01/02/2025 13:15 Note Text: [facility] Virtual Visit Follow up This visit was [...] visit. Either the patient or their legal insurance service representative has been informed of the risks [...] improved with new medication, sulfasalazine, prescribed by substance abuse therapist Dr. Jack. Analgesic Diclofenac (Voltaren, Cataflam, Cambia) [...] TAKE 2 CAPSULES ONCE DAILY MV with Ols-Flwcsylq-Pzaklp (CENTRUM SILVER) 0.4-300-25 (more content not included)... [facility] 12-25-2024 Instructions David Chicas MD - 12/25/2024 [...] and Pap test are typically done in [place] with Dr. Boles and that you believe [...] your overall health. documented in this encounter [facility] 12-25-2024 Note HNO ID: [id number] Author: DAVID CHICAS MD Service: ? Author [...] recently returned from a bus trip to [facility], which she enjoyed despite the heat. She is planning a trip to [place], [place], in February for a hot air balloon festival to celebrate her 60th birthday. Berenice is due for a mammogram and Pap test in February, with her last screenings performed in February of the previous year by Dr. Boles in [place], which were normal. Social History Tobacco Use [...] esters (LOVAZA) 1 gram capsule MV with Kpc-Rjztxome-Nqakvx (CENTRUM SILVER) 0.4-300-250 mg-mcg-mcg tab Health Maintenance [...] any unintended typographical errors. Recording using ambient [employer] software for draft documentation of the visit was discussed with the patient/authorized insurance service representative; all questions welcomed and answered. Patient/authorized insurance service representative agreed to proceed David Chicas MD [facility] 12-25-2024 History of Present illness Narrative Reason [...] recently returned from a bus trip to [place], which she enjoyed despite the heat. She is planning a trip to [place], [place], in February for a hot air balloon festival to celebrate her 60th birthday. Berenice is due for a mammogram and Pap test in February, with her last screenings performed in February of the previous year by Dr. Boles in [place], which were normal. Social History Tobacco Use [...] esters (LOVAZA) 1 gram capsule MV with Tot-Bzesnqfr-Mjgofj (CENTRUM SILVER) 0.4-300-250 mg-mcg-mcg tab Health Maintenance [...] excuse any unintended typographical errors. Recording using AppSpotr software for draft documentation of the visit was discussed with the patient/authorized insurance service representative; all questions welcomed and answered. Patient/authorized insurance service representative agreed to proceed David Chicas MD documented in this encounter [facility] 12-19-2024 Note Patient Outreach (IN TMWS) BERENICE GIVENS ([id number]) 1965 F Date Time Provider Department 12/19/24 DAVID CHICAS During your visit today, we recorded the following information about you: Allergies As of Date: 12/19/2024 Noted Allergy Reaction LISINOPRIL 06/04/2011 5 - Intolerance Comments: sleepy PRAVASTATIN 06/30/2013 15 - Contraindication-Medical Bear* Comments: myositis ZITHROMAX (AZITHROMYCIN) 01/19/2008 Comments: Abdominal cramping Date Reviewed: 11/24/2024 Reviewed by: Mattie Somers APRN.DEICER REPAIRER - Fully Assessed Visit Diagnosis:Encounter for screening mammogram for breast cancer [Z12.31] Order(s):[facility] SCREENING W FACUNDO [4695006] Order #: [id number] FUTURE Prescriptions as of 01/19/2025 - buPROPion [...] 2 CAPSULES ONCE DAILY - MV with Bty-Pkyndcrs-Aoyate (CENTRUM SILVER) 0.4-300-250 mg-mcg-mcg tab Take 1 [...] Preoperative clearance [Z01.818] 11/08/2023 Encounter Status:Closed by Neronote, PRODUSER on 01/19/25 [facility] 11-24-2024 Note HNO ID: [id number] Author: MATTIE SOMERS APRN.DEICER REPAIRER Service: ? Author Type: Nurse Practitioner Type: [...] agreeable to treatment plan. Mattie Somers APRN.CNP [facility] 11-24-2024 History of Present illness Narrative CC: [...] Mattie Somers APRN.CNP documented in this encounter [facility] 11-21-2024 Note HNO ID: [id number] Author: DARRELL JACK MD Service: ? Author Type: Physician Type: Progress Notes Filed: 11/21/2024 14:46 Note Text: On 11/21/2024, I had the pleasure of evaluating Berenice Givens in a follow-up [facility] Rheumatology appointment for inflammatory arthritis. This Team Access Model visit is a virtual encounter utilizing both video and audio components. It required patient-provider interaction for the medical decision making as documented below. My name and active licensure have been communicated. The patient's identity and physical location were verified at the time of this visit. Either the patient or their legal insurance service representative has been informed of the risks [...] once daily. choleca (more content not included)... [facility] 11-21-2024 History of Present illness Narrative On 11/21/2024, I had the pleasure of evaluating Berenice Givens in a follow-up [facility] Rheumatology appointment for inflammatory arthritis. This Team Access Model visit is a virtual encounter utilizing both video and audio components. It required patient-provider interaction for the medical decision making as documented below. My name and active licensure have been communicated. The patient's identity and physical location were verified at the time of this visit. Either the patient or their legal insurance service representative has been informed of the risks [...] TAKE 2 CAPSULES ONCE DAILY MV with Ska-Njnnanxr-Aiewzn (CENTRUM SILVER) 0.4-300-250 mg-mcg-mcg tab Take 1 [...] Disease Maternal Uncle SOCIAL HISTORY: Lives in [place] with spouse. 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 Tobacco use: None Alcohol use: None [...] Antibody Negative Negative Anti-Sm <1.0 AI 0.2 CONTENT PRODUCTION SPECIALIST Antibody QUAL Negative Negative Anti-CONTENT PRODUCTION SPECIALIST <1.0 AI 0.9 SSA Antibody Qual Negative Negative Anti-SSA <1.0 AI <0.2 Anti-SSB <1.0 AI <0.2 SSB Antibody Qual Negative Negative CENTROMERE AB QUAL Negative Negative Centromere Ab <1.0 AI <0.2 Scleroderma Ab Qual Negative Negative Scl-70 Abs, EIA <1.0 AI <0.2 ROSEANNE 1 ANTIBODY QUAL Negative Negative Roseanne 1 Antibody <1.0 AI <0.2 Ribosomal CONTENT PRODUCTION SPECIALIST Qualitative Negative Negative Ribosomal CONTENT PRODUCTION SPECIALIST Ab <1.0 AI <0.2 Chromatin Ab Qual [...] due in Dec. Notify of results via [employer];t 2. Generalized osteoarthritis: Hands (per exam), likely [...] Darrell Jack MD documented in this encounter [facility] 11-20-2024 Note HNO ID: [id number] Author: FELIX ORNELAS MD Service: ? Author Type: Physician Type: Progress Notes Filed: 11/20/2024 13:35 Note Text: Felix Ornelas MD Interventional Cardiology [address] [place] [address] [phone] Chief Complaint Patient presents with: CARD Follow [...] active and is planning a trip to [facility], which will involve walking. She underwent vertebroplasty, [...] XR) 500 m (more content not included)... [facility] 11-20-2024 History of Present illness Narrative Images from the original note were not included. Felix Ornelas MD Interventional Cardiology [address] [place] [id number] [phone] Chief Complaint Patient presents with: CARD Follow [...] active and is planning a trip to [place] [place], which will involve walking. She underwent vertebroplasty, [...] ONCE DAILY 180 capsule 3 MV with Epm-Fkozmeez-Oaenra (CENTRUM SILVER) 0.4-300-250 mg-mcg-mcg tab Take 1 [...] active and preparing for a trip to [place] [facility] [place], which will involve walking. This is a [...] correct any errors. documented in this encounter [facility] 11-14-2024 Evaluation note Diagnosis Onset Date Resolution CHATO (obstructive sleep apnea) chronic November 14, 2024 8:47am [facility] Work Phone: [phone] 590-491306-16-2025 NoteHNO ID: [id number] Author: JOHNSON DAILEY MA Service: ? Author Type: Marketing Director Assisted Living Type: Progress Notes Filed: 11/13/2024 08:52 Note Text: PLQ eye exam done on 11/11/2024. No evidence of PLQ toxicity. Report sent for scanning. Johnson Dailey [facility]06-16-2025 History of Present illness Narrative* Johnson Dailey MA - 11/13/2024 8:51 AM EDT PLQ eye exam done on 11/11/2024. No evidence of PLQ toxicity. Report sent for scanning. Johnson Dailey MA documented in [facility] Telephone encounter Note * Telephone Encounter - Emanuel Palomares APRN.CNP - 11/06/2024 8:39 AM EDT Will defer to Dr. Jack. I am no longer seeing the patient. Emanuel Negrete APRN.ELDER [facility] Work Phone: 1(619) 894-790306-09-2025 Miscellaneous Notes* Telephone Encounter - Emanuel Palomares [...] URICACID Johnson Dailey MA documented in this encounter[facility] Telephone encounter Note * Telephone Encounter - [...] results found for: URICACID Johnson Dailey MA [facility]05-30-2025 NoteHNO ID: [id number] Author: MATTIE SOMERS APRN.DEICER REPAIRER Service: ? Author Type: Nurse Practitioner Type: [...] drainage. Was started on bactrim. Recording using [employer] software for draft documentation of the visit was discussed with the patient/authorized insurance service representative; all questions welcomed and answered. Patient/authorized insurance service representative agreed to proceed Cat Bite Infection: [...] TAKE 2 CAPSULES ONCE DAILY MV with Bhs-Yqwjmvxw-Fbdeoz (CENTRUM SILVER) 0.4-300-250 mg-mcg-mcg tab Take 1 tablet by m (more content not included)...[facility]05-30-2025 History of Present illness Narrative* Lizbet, CLIFTON Phelps.DEICER REPAIRER - 10/27/2024 3:17 PM EDT CC: Patient presents with: Recheck: Cellulitis follow up HPI Berenice Givens is a 59 year old female who presents today for follow up on cat bite. Was treated previously augmentin and doxycycline, but was seen 2 days ago with return of redness tenderness and drainage. Was started on bactrim. Recording using [employer] software for draft documentation of the visit was discussed with the patient/authorized insurance service representative; all questions welcomed and answered. Patient/authorized insurance service representative agreed to proceed Cat Bite Infection: [...] TAKE 2 CAPSULES ONCE DAILY MV with Qrx-Mkposuty-Hodxeq (CENTRUM SILVER) 0.4-300-250 mg-mcg-mcg tab Take 1 [...] plan. Mattie Somers APRN.CNP documented [facility] Instructions* Patient Instructions* Mattie Somers APRN.CNP - [...] room if these occur. documented in this encounterMet[facility] Instructions* Patient Instructions* Mattie Somers APRN.CNP - 10/25/2024 12:50 PM EDT - Fill and start the Bactrim (trimethoprim-sulfamethoxazole) prescription at [facility] in [place] and take it exactly as directed. - [...] antibiotic may be added. documented in this encounterMetro[facility]05-28-2025 NoteHNO ID: [id number] Author: MATTIE SOMERS APRN.CNP Service: ? Author Type: Nurse Practitioner Type: Progress Notes Filed: 10/26/2024 07:41 Note Text: CC: Patient presents with: Recheck: 3 month follow up HPI Berenice Givens is a 59 year old female who presents today for routine follow up but recent cat bite she had been treated for is getting red again and starting to drain. Recording using [employer] software for draft documentation of the visit was discussed with the patient/authorized insurance service representative; all questions welcomed and answered. Patient/authorized insurance service representative agreed to proceed Cat Bite: - [...] TAKE 2 CAPSULES ONCE DAILY MV with Paa-Cpsxmfhf-Bgwblw (CENTRUM SILVER) 0.4-300-250 mg-mcg-mcg tab Take 1 tablet by mouth once daily. FAMILY HISTORY Problem Relation Age of Onset Diabetes Mother Alzheimer's Disease Mother other (Polycythmeia vera) Father Breast Cancer Sister bilateral mastectomy other (HOCM with myocardial bridge) Sister Alzheimer's Disease Maternal Grandmother Heart Maternal Grandfather Cancer Paternal Grandfather Lung Alzheimer's D (more content not included)...[facility]05-28-2025 History of Present illness Narrative* Lizbet, MattieCLIFTON.DEICER REPAIRER - 10/25/2024 12:48 PM EDT CC: Patient presents with: Recheck: 3 month follow up HPI Berenice Givens is a 59 year old female who presents today for routine follow up but recent cat biteshe had been treated for is getting red again and starting to drain. Recording using [employer] software for draft documentation of the visit was discussed with the patient/authorized insurance service representative; all questions welcomed and answered. Patient/authorized insurance service representative agreed to proceed Cat Bite: - [...] TAKE 2 CAPSULES ONCE DAILY MV with Vsx-Deyanjqx-Lkhlnb (CENTRUM SILVER) 0.4-300-250 mg-mcg-mcg tab Take 1 [...] antibiotic- associated diarrhea. - Prescriptions sent to [facility] pharmacy. 3. Other fatigue (R53.83) - [...] plan. Mattie Somers APRN.ELDER documented in this encounterMet[facility] Instructions* Patient Instructions* David Chicas MD - 10/16/2024 12:29 PM EDT documented in this encounterMetrohealth [facility]05-19-2025 NoteHNO ID: [id number] Author: DAVID CHICAS MD Service: ? Author [...] esters (LOVAZA) 1 gram capsule MV with Nfy-Zsikxpsp-Izravj (CENTRUM SILVER) 0.4-300-250 mg-mcg-mcg tab doxycycline monohydrate [...] any unintended typographical errors. Recording using ambient [employer] software for draft documentation of the visit was discussed with the patient/authorized insurance service representative; all questions welcomed and answered. Patient/authorized insurance service representative agreed to proceed David Chicas [facility]05-19-2025 History of Present illness Narrative* David Chicas [...] esters (LOVAZA) 1 gram capsule MV with Akc-Kdpozwbt-Uyfhhw (CENTRUM SILVER) 0.4-300-250 mg-mcg-mcg tab doxycycline monohydrate [...] any unintended typographical errors. Recording using ambient [employer] software for draft documentation of the visit was discussed with the patient/authorized insurance service representative; all questions welcomed and answered. Patient/authorized insurance service representative agreed to proceed David Chicas MD documented in this encounterMet[facility]-2025 NotePatient Outreach (INTMMN) BERENICE GIVENS ([id number]) 1965 F Date Time Provider Department 10/10/24 DAVID CHICAS During your visit today, we recorded the following information about you: Allergies As of Date: 10/10/2024 Noted Allergy Reaction LISINOPRIL 06/04/2011 5 - Intolerance Comments: sleepy PRAVASTATIN 06/30/2013 15 - Contraindication-Medical Bear* Comments: myositis ZITHROMAX (AZITHROMYCIN) 01/19/2008 Comments: Abdominal cramping Date Reviewed: 07/27/2024 Reviewed by: Mattie Somers APRN.DEICER REPAIRER - Fully Assessed Visit Diagnosis:Hyperlipidemia [E78.5] Order(s):LIPID PANEL, FASTING [SQLIPB] Order #: [id number] FUTURE Prescriptions as of 10/13/2024 - sulfaSALAzine [...] 2 CAPSULES ONCE DAILY - MV with Sxe-Unzkwftv-Bpmkfw (CENTRUM SILVER) 0.4-300-250 mg-mcg-mcg tab Take 1 [...] Preoperative clearance [Z01.818] 11/08/2023 Encounter Status:Closed by Neronote PRODUSER on 10/13/24[facility] 09-20-2024 NoteHNO ID: [id number] Author: DARRELL JACK MD Service: ? Author Type: Physician Type: Progress Notes Filed: 09/20/2024 14:52 Note Text: On 09/20/2024, I had the pleasure of evaluating Berenice Givens in a follow-up [facility] Rheumatology appointment for inflammatory arthritis. This Team Access Model visit is a virtual encounter utilizing both video and audio components. It required patient-provider interaction for the medical decision making as documented below. My name and active licensure have been communicated. The patient's identity and physical location were verified at the time of this visit. Either the patient or their legal insurance service representative has been informed of the risks [...] (GLUCOPHAGE XR) 500 mg (more content not included)...[facility]04-21-2025 Telephone encounter Note* Telephone Encounter - Jodie [...] results found for: URICACID Jodie Valerio MA [facility]04-21-2025 Miscellaneous Notes* Telephone Encounter - Jodie Valerio [...] URICACID Jodie Valerio MA documented in this encounterMet[facility] Telephone encounter Note * Telephone Encounter - Fatimah Sunshine LPN - 09/11/2024 3:45 PM EDT Duplicate request for Levothyroxine. Fatimah Sunshine LPN [facility]04-14-2025 Miscellaneous Notes* Telephone Encounter - Fatimah Sunshine LPN - 09/11/2024 3:45 PM EDT Duplicate request for Levothyroxine. Fatimah Sunshine LPN documented in this encounterMet[facility]04-[facility] Telephone encounter Note * Telephone Encounter - [...] Stringer LPN September 06, 2024 11:44 AM [facility]04-09-2025 Miscellaneous Notes* Telephone Encounter - Marybeth Stringer [...] advise. Smiley Silveira RN documented in this encounterMet[facility]04-[facility]-2025 Telephone encounter Note * Telephone Encounter - Smiley Silveira RN - 09/06/2024 9:41 AM EDT Patient requesting refills as follows: Requested Prescriptions Pending Prescriptions Disp Refills losartan (COZAAR) 100 mg tablet 90 tablet 3 Sig: Take 1 tablet by mouth once daily. Please review and advise. Smiley Silveira RN [facility]03-17-2025 Telephone encounter Note* Telephone Encounter - Jodie [...] results found for: URICACID Jodie Valerio MA [facility]03-17-2025 Miscellaneous Notes* Telephone Encounter - Jodie Valerio [...] URICACID Jodie Valerio MA documented in this encounterMetro[facility]02-27-2025 NoteHNO ID: [id number] Author: MATTIE SOMERS APRN.DEICER REPAIRER Service: ? Author Type: Nurse Practitioner Type: [...] TAKE 2 CAPSULES ONCE DAILY MV with Arp-Rihzgijf-Extcvo (CENTRUM SILVER) 0.4-300-250 mg-mcg-mcg tab Take 1 [...] Weight decrea (more content not included)...[facility] [id number] History of Present illness Narrative* Lizbet, MattieCLIFTON.DEICER REPAIRER - 07/27/2024 11:40 AM EST CC: Patient [...] TAKE 2 CAPSULES ONCE DAILY MV with Xlp-Hhyonnwd-Yqswym (CENTRUM SILVER) 0.4-300-250 mg-mcg-mcg tab Take 1 [...] - Instructed patient to contact office or wwyyr-sz-llsw after-hours promptly should condition worsen or any new symptoms appear. - [facility] and after hours crisis line Prescription instructions reviewed with patient as applicable. Potential red flag symptoms discussed with the patient. Reviewed appropriate action plan to take if red flag symptoms occur. Patient agreeable to treatment plan. Mattie Somers APRN.CNP documented in this encounterMetro[facility]02-17-2025 Telephone encounter Note * Telephone Encounter - Emanuel Palomares APRN.CNP - 07/17/2024 8:48 AM EST The following approved medication requests have been transmitted electronically. Requested Prescriptions Signed Prescriptions Disp Refills sulfaSALAzine (AZULFIDINE) 500 mg tablet 60 tablet 0 Sig: Take 500 mg twice/day Authorizing Provider: EMANUEL PALOMARES APRN.CNP [facility]02-17-2025 Miscellaneous Notes* Telephone Encounter - Emanuel Palomares [...] URICACID Johnson Dailey MA documented in this encounterMetrohealth [facility]02-17-2025 Telephone encounter Note * Telephone Encounter - [...] results found for: URICACID Johnson Dailey MA [facility]02-05-2025 History of Present illness Narrative* Eddie Wilson, BRAID CUTTER.DEICER REPAIRER - 07/05/2024 2:30 PM EST [facility] Virtual Visit Follow up This visit was [...] visit. Either the patient or their legal insurance service representative has been informed of the risks [...] TAKE 2 CAPSULES ONCE DAILY MV with Jro-Ojuxjgrk-Ffsoek (CENTRUM SILVER) 0.4-300-250 mg-mcg-mcg tab Take 1 [...] these with the patient: yes Eddie Wilson APRN.DEICER REPAIRER HEADACHE SCORES: 09/08/2023 03/28/2024 06/28/2024 Headache Questions [...] articulation, and clear,coherent, and relevant. Short and custodial memory, cognition and general fund of knowledge [...] which included preparing to see the patient, mdqh-nz-gttk patient care, completing clinical documentation, obtaining and/or reviewing separately obtained history, and ordering medications, tests, or procedures. Eddie Wilson APRN-ELDER Headache Section [facility] Answers submitted by the patient for this [...] last month? : 25 documented in this encounterMetrohealth [facility]02-05-2025 NoteHNO ID: [id number] Author: EDDIE WILSON APRN.CNP Service: ? Author Type: Nurse Practitioner Type: Progress Notes Filed: 07/05/2024 14:46 Note Text: [facility] Virtual Visit Follow up This visit was [...] visit. Either the patient or their legal insurance service representative has been informed of the risks [...] TAKE 2 CAPSULES ONCE DAILY MV with Nme-Biflbubi-Lwfdhh (CENTRUM SILVER) 0.4-300-250 mg-mcg-mcg tab Take 1 [...] Allergen Reactions Lisinopril Intoleranc (more content not included)...[facility] 07-03-2024 Miscellaneous Notes* Telephone Encounter - Jenny [...] 30 day to [facility]. documented in this encounterMetro[facility]02-03-2025 Telephone encounter Note * Telephone Encounter - [...] [facility] and 30 day to [facility]. [facility]01-30-2025 Telephone encounter Note* Telephone Encounter - Sumi Brown LPN - 06/29/2024 10:41 AM EST Records show a valid rx at the pharmacy. Sumi Brown LPN [facility]01-30-2025 Miscellaneous Notes* Telephone Encounter - Sumi Brown LPN - 06/29/2024 10:41 AM EST Records show a valid rx at the pharmacy. Sumi Brown LPN documented in this encounterMetrohealth [facility]01-30-2025 Telephone encounter Note * Telephone Encounter - Staci Osorio MA - 06/29/2024 10:21 AM EST Patient notified and willing to start Wellbutrin, please send to [facility]. [facility]01-30-2025 Miscellaneous Notes* Telephone Encounter - Staci Osorio [...] you Mattie Somers APRN.CNP documented in this encounterMetrohealth [facility]01-30-2025 Telephone encounter Note * Telephone Encounter - Mattie Somers APRN.CNP - 06/29/2024 9:48 AM EST Blood work overall in acceptable ranges. Does she want to start wellbutrin as discussed in appointment? This is the daily pill antidepressant we use for weight loss that increased motivation and decreases appetite. If so, what pharmacy? Thank you Mattie Somers APRN.CNP [facility]01-27-2025 NoteHNO ID: [id number] Author: MATTIE SOMERS APRN.CNP Service: ? Author [...] TAKE 2 CAPSULES ONCE DAILY MV with Set-Cocwzwld-Nbpcqg (CENTRUM SILVER) 0.4-300-250 mg-mcg-mcg tab Take 1 [...] acute distress, alert Eyes (more content not included)...[facility]01-27-2025 History of Present illness Narrative* Mattie Somers APRN.DEICER REPAIRER - 06/26/2024 11:12 AM EST CC: Patient presents with: Recheck: 6 month follow up HPI Berenice iGvens is a 59 year old female who [...] TAKE 2 CAPSULES ONCE DAILY MV with Gta-Jpuarjbf-Uskswk (CENTRUM SILVER) 0.4-300-250 mg-mcg-mcg tab Take 1 [...] plan. Mattie Somers APRN.CNP documented in this encounterMetrohealth [facility]01-22-2025 NoteHNO ID: [id number] Author: DARRELL JACK MD Service: ? Author Type: Physician Type: Progress Notes Filed: 06/21/2024 14:46 Note Text: On 06/21/2024, I had the pleasure of evaluating Berenice Givens in a follow-up [facility] Rheumatology appointment for inflammatory arthritis. This Team Access Model visit is a virtual encounter utilizing both video and audio components. It required patient-provider interaction for the medical decision making as documented below. My name and active licensure have been communicated. The patient's identity and physical location were verified at the time of this visit. Either the patient or their legal insurance service representative has been informed of the risks [...] twice daily. omega-3 ac (more content not included)...[facility]01-22-2025 History of Present illness Narrative* Darrell Jack MD - 06/21/2024 2:14 PM EST On 06/21/2024, I had the pleasure of evaluating Berenice Givens in a follow-up [facility] Rheumatology appointment for inflammatory arthritis. This Team Access Model visit is a virtual encounter utilizing both video and audio components. It required patient-provider interaction for the medical decision making as documented below. My name and active licensure have been communicated. The patient's identity and physical location were verified at the time of this visit. Either the patient or their legal insurance service representative has been informed of the risks [...] TAKE 2 CAPSULES ONCE DAILY MV with Ler-Faqvbrqa-Aucdhp (CENTRUM SILVER) 0.4-300-250 mg-mcg-mcg tab Take 1 [...] Disease Maternal Uncle SOCIAL HISTORY: Lives in [place] with spouse. Retired from working at a [employer] Tobacco use: None Alcohol use: None Drug [...] Antibody Negative Negative Anti-Sm <1.0 AI 0.2 CONTENT PRODUCTION SPECIALIST Antibody QUAL Negative Negative Anti-CONTENT PRODUCTION SPECIALIST <1.0 AI 0.9 SSA Antibody Qual Negative Negative Anti-SSA <1.0 AI <0.2 Anti-SSB <1.0 AI <0.2 SSB Antibody Qual Negative Negative CENTROMERE AB QUAL Negative Negative Centromere Ab <1.0 AI <0.2 Scleroderma Ab Qual Negative Negative Scl-70 Abs, EIA <1.0 AI <0.2 ROSEANNE 1 ANTIBODY QUAL Negative Negative Roseanne 1 Antibody <1.0 AI <0.2 Ribosomal CONTENT PRODUCTION SPECIALIST Qualitative Negative Negative Ribosomal CONTENT PRODUCTION SPECIALIST Ab <1.0 AI <0.2 Chromatin Ab Qual [...] patient. Darrell Jack MD documented in this encounterMetrohealth [facility]01-22-2025 Evaluation note* Diagnosis Onset Date Resolution Status Admit Date Obesity chronic June 21, 2024 9:20am CHATO (obstructive sleep apnea) chroni c June 21, 2024 9:20am Smoking greater than 30 pack years chronic June 21 9:20am [facility] Work Phone: [phone]) 812-492512-31-2024 NotePatient Outreach (INTMMN) BERENICE GIVENS ([id number]) 1965 F Date Time Provider Department 05/30/24 [...] [I10] Order(s):BASIC METABOLIC PANEL [SQBMP] Order #: [id number] FUTURE Prescriptions as of 06/02/2024 - ezetimibe [...] 2 CAPSULES ONCE DAILY - MV with Tru-Cadenpwr-Iukzai (CENTRUM SILVER) 0.4-300-250 mg-mcg-mcg tab Take 1 [...] 11/08/2023 Encounter Status:Closed by EPIC, PRODUSER on 06/02/24[facility] 05-19-2024 Telephone encounter Note* Telephone Encounter - [...] if that would work for her. Thanks [facility]12-20-2024 Miscellaneous Notes* Telephone Encounter - Keshia Givens [...] work for her. Thanks documented in this encounterMetrohealth [facility]11-27-2024 Hospital Discharge instructions Patient Education 04/26/2024 11:48:07 [...] including vitamins, herbs, eye drops, creams, and gvwo-jtw-dzijtpf medicines. Any problems you or family members [...] provider tells you to take them. Taking iagk-dxr-tcwwuhv medicines, vitamins, herbs, and supplements. General instructions [...] Follow these instructions at home: Medicines Take wcny-ris-nuaqdbq and prescription medicines only as told by [...] 02/05/2016 Document Revised: 11/25/2018 Document Reviewed: 11/25/2018 [employer] Patient Education 2020 [employer]. Follow Up Care 04/11/2024 15:58:17 With:SARA AUSTIN DO, Obstetrics & Gynecology, [facility] Address: [address] [phone] When: Unknown Comments:Follow-up as needed [facility] 11-27-2024 Summary of episode note Discharge Instructions Thank you for allowing [facility] to assist you with your healthcare needs. The following is importantdischarge information regarding your hospital visit. Your Care Team CAIO ADAM MD What to do next Follow Up Appointments Follow Up with SARA AUSTIN DO, Obstetrics & Gynecology, [facility] Where:[address] [phone] Additional Information: Follow-up as needed Allergies NKA [...] including vitamins, herbs, eye drops, creams, and kjuq-bpm-adypdny medicines. Any problems you or family members [...] provider tells you to take them. Taking kgij-rwp-tfsihrh medicines, vitamins, herbs, and supplements. General instructions [...] Follow these instructions at home: Medicines Take ekwq-phc-lfojmts and prescription medicines only as told by [...] 02/05/2016 Document Revised: 11/25/2018 Document Reviewed: 11/25/2018 InH[employer] Patient Education 2020 [employer]. Additional Information VACCINATE! IT SAVES LIVES! Members of the community who have not yet received the COVID-19 vaccine and would like to receive it can visit one of [facility] vaccine clinics. There are many vaccine clinic locations within the [facility]. For locations and available times, please visit [email or web address].[place].gov/. It is important to note that some COVID mobile vaccine clinics are held outdoors and may be canceled in rainy or stormy conditions. To learn more about pediatric vaccinations (ages 5-11), we invite you to visit the [facility] webpage. https://www.[employer].s.org/pages/4917-Kemvn-Mjmaczccolt-Fnlkjfhqyc-Aqoxn-Dik stions.htmlTo learn more about the COVID-19 vaccine, we invite you to visit the CDC website for a list of frequently asked questions.https://www.cdc.gov/coronavirus/2019-ncov/vaccines/faq.html [employer] [facility] [facility] Patient Portal Access Instructions: Stay connected with your healthcare team and access your personal medical information anytime with the [employer] Patient Portal. Please follow the directions below to create your [employer] account: 1.Access the email account you provided upon registration to the hospital/physician office.2.Look for an invitation email from [facility].3.Open the email and access the invitation link: AcceptInvitation to [employer].4.Fill in the required noonan to create your account. To access your account, visit [employer]at. Click the blue button labeled Access Patient [...] who you will allowto register on the [facility] [employer] [facility] Patient Portal for access to your information. You can also access the [facility] Patient Portal on the [facility] tito. Simply click on Patient Portal and then log into your account. If you would like to receive a full copy of your medical records, please contact the [facility] Medical Records Department by calling [phone], Wednesday through Wednesday between 8 a.m. and [...] Call your local pharmacy or go to [email or web address] to find one close to you.3.Make use of household items: Use cat litter or old coffee grounds to dispose medications if other options arenot available. Mix your drugs with these household products, seal them in an airtight container andthrow it into the garbage. Call [facility]: [phone] to be sure your drugs can be [...] aware that I should contact my doctor. Patient/Acid Extractor Signature: Date/Time: Relationship to Patient: Witness Name/Signature: Date/Time: [id number] History and physical note Date of Service History and Physical Update I have examined the patient; reviewed the History and Physical and there are no changes to the History and Physical unless noted below. Digitally Signed by SARA AUSTIN DO on 04/26/2024 08:20 AM [facility] [id number] Miscellaneous Notes* Telephone Encounter - Jacque Sequeira [...] 24, 2024 2:11 PM documented in this encounterMetro[facility]11-25-2024 Telephone encounter Note * Telephone Encounter - [...] Sequeira LPN April 24, 2024 2:11 PM [facility]11-25-2024 Telephone encounter Note* Telephone Encounter - Jacque [...] Sequeira LPN April 24, 2024 2:10 PM [facility]11-25-2024 Miscellaneous Notes* Telephone Encounter - Jacque Sequeira [...] 24, 2024 2:10 PM documented in this encounterMetrohealth [facility]11-25-2024 Telephone encounter Note * Telephone Encounter - [...] Sequeira LPN April 24, 2024 2:05 PM [facility]11-25-2024 Miscellaneous Notes* Telephone Encounter - Jacque Sequeira [...] 24, 2024 2:05 PM documented in this encounterMetrohealth [facility] Center11-05-2024 NoteHNO ID: [id number] Author: LOUANN DAMON PA-C Service: ? Author Type: Physician Cardiologist Type: Progress Notes Filed: 04/04/2024 14:59 Note [...] TAKE 2 CAPSULES ONCE DAILY MV with Iih-Jvvztuiu-Rxrpgg (CENTRUM SILVER) 0.4-300-250 mg-mcg-mcg tab Take 1 [...] and when to seek care sooner. [facility]11-05-2024 History of Present illness Narrative* Louann Damon [...] TAKE 2 CAPSULES ONCE DAILY MV with Euq-Nrovizcp-Vkfhxs (CENTRUM SILVER) 0.4-300-250 mg-mcg-mcg tab Take 1 [...] sooner. Louann Damon PA-C documented in this encounterMetrohealth [facility]11-05-2024 Telephone encounter Note * Telephone Encounter - [...] Louann Damon today 04/04/2024. Dennise Palomares RN [facility]11-05-2024 Miscellaneous Notes* Telephone Encounter - Dennise Palomares [...] Louann Damon today 04/04/2024. Dennise Palomares RN documented in this encounterMetrohealth [facility]11-05-2024 History of Present illness Narrative* Eddie Wilson, BRAID CUTTER.DEICER REPAIRER - 04/04/2024 1:45 PM EST [facility] Virtual Visit Follow up This visit was conducted as a virtual visit, with patient's permission, via Zoom. It required patient-provider interaction for the medical decision making as documented below. Patient stated name and Patient location [place] I have communicated my name and active licensure. The patient's identity and physical location wereverified at the time of this visit. Either the patient or their legal insurance service representative has been informed of the risks and benefits of -- and alternatives to -- treatment through a remote evaluation andconsents to proceed with the evaluation remotely. April 04, 2024 Chief Complaint: headache Impression and Plan last visit: 09/15/2023 with Miranda Maloney DEICER REPAIRER Migraine without aura and without status migrainosus, [...] TAKE 2 CAPSULES ONCE DAILY MV with Ilf-Yoxsssqk-Pwwmbq (CENTRUM SILVER) 0.4-300-250 mg-mcg-mcg tab Take 1 [...] these with the patient: yes Eddie Wilson APRN.DEICER REPAIRER HEADACHE SCORES: 02/26/2022 09/08/2023 03/28/2024 Headache Questions [...] articulation, and clear,coherent, and relevant. Short and joint terminal attack controller memory, cognition and general fund of knowledge [...] which included preparing to see the patient, uimd-dz-jnqf patient care, completing clinical documentation, obtaining and/or reviewing separately obtained history, and ordering medications, tests, or procedures. ELIZA Saini Headache Section [facility] documented in this encounterMetrohealth [facility]11-05-2024 NoteHNO ID: [id number] Author: EDDIE WILSON APRN.CNP Service: ? Author Type: Nurse Practitioner Type: Progress Notes Filed: 04/04/2024 13:59 Note Text: [facility] Virtual Visit Follow up This visit was conducted as a virtual visit, with patient's permission, via Zoom. It required patient-provider interaction for the medical decision making as documented below. Patient stated name and Patient location [place] I have communicated my name and active licensure. The patient's identity and physical location were verified at the time of this visit. Either the patient or their legal insurance service representative has been informed of the risks and benefits of -- and alternatives to -- treatment through a remote evaluation and consents to proceed with the evaluation remotely. April 04, 2024 Chief Complaint: headache Impression and Plan last visit: 09/15/2023 with Miranda Haider DEICER REPAIRER Migraine without aura and without status migrainosus, [...] TAKE 2 CAPSULES ONCE DAILY MV with Yvv-Tusytacp-Ajwgvr (CENTRUM SILVER) 0.4-300-250 mg-mcg-mcg tab Take 1 tablet by mouth once daily. No current facility-administered medications for this visit. PAST MEDICAL HISTORY Diagnosis Date Abdominal pain, epigastric Cigarette smoker 06/27/2021 Depressive disorder, not elsewhere classified Diaphragmatic hernia without mention of obstruction or gangrene Lupus erythematosus M (more content not included)...[facility]11-02-2024 NoteHNO ID: [id number] Author: ANNY IQBAL PA-C Service: ? Author Type: Physician Cardiologist Type: Progress Notes Filed: 04/01/2024 12:21 Note Text: This note was created using [employer] Semiconductorriter. Subjective Berenice Givens is a 59 year [...] ONCE DAILY 180 capsule 3 MV with Jhq-Xhbeuccf-Ttjnpg (CENTRUM SILVER) 0.4-300-250 mg-mcg-mcg tab Take 1 [...] complication - ICD9: 053.9, (more content not included)...[facility]11-02-2024 History of Present illness Narrative* Anny Iqbal PA-C - 04/01/2024 12:19 PM EDT Images from the original note were not included. This note was created using [employer]. Subjective Berenice Givens is a 59 year [...] ONCE DAILY 180 capsule 3 MV with Slv-Wqhzonkw-Lcrifg (CENTRUM SILVER) 0.4-300-250 mg-mcg-mcg tab Take 1 [...] agreeable. Anny Iqbal PA-C documented in this encounterMetro[facility]10-31-2024 Telephone encounter Note * Telephone Encounter - [...] Please advise. Thank you. Fatimah Sunshine LPN. [facility]10-31-2024 Miscellaneous Notes* Telephone Encounter - Fatimah Sunshine [...] you. Fatimah Sunshine LPN. documented in this encounterMetrohealth [facility]10-28-2024 Telephone encounter Note * Telephone Encounter - Mili Rueda - 03/27/2024 2:44 PM EDT Patient has been scheduled for their MSK US exam on 05/18/24 : 12:45 PM at MAIN. [facility]10-28-2024 Miscellaneous Notes* Telephone Encounter - Mili Rueda [...] FACILITY Slot held: N/A documented in this encounterMetrohealth [facility]10-28-2024 Telephone encounter Note * Telephone Encounter - Mili Rueda - 03/27/2024 2:20 PM EDT Called patient on March 27, 2024 at 2:20 PM to schedule their MSK US exam. No answer, left VM, 1st attempt. [facility]10-28-2024 Telephone encounter Note* Telephone Encounter - Miri Valentin PCNA - 03/27/2024 2:16 PM EDT Visit Type: MSK SYN Visit Length: 45, 50 OR 60 MINUTES Order Name/Protocol: US HAND/WRIST SYNOVIAL SCREEN RT+LT Preferred Provider: N/A Comment: N/A Location: ANY FACILITY Slot held: N/A [facility]10-28-2024 Telephone encounter Note* Telephone Encounter - Angie Beach - 03/27/2024 2:14 PM EDT US HAND/WRIST SYNOVIAL SCREEN LEFT (Order #[id number]) on 03/27/24 US HAND/WRIST SYNOVIAL SCREEN RIGHT Please advise needs scheduled [facility]10-28-2024 Miscellaneous Notes* Telephone Encounter - Angie Beach - 03/27/2024 2:14 PM EDT US HAND/WRIST SYNOVIAL SCREEN LEFT (Order #[id number]) on 03/27/24 US HAND/WRIST SYNOVIAL SCREEN RIGHT Please advise needs scheduled documented in this encounterMet[facility]10-28-[facility]24 History of Present illness Narrative* Darrell Jack MD - 03/27/2024 1:51 PM EDT On 03/27/2024, I had the pleasure of evaluating Berenice Givens in a follow[facility]up [facility] Rhe[facility] for inflammatory arthritis. HPI: To [...] TAKE 2 CAPSULES ONCE DAILY MV with Goj-Ermmiaqs-Qupjgj (CENTRUM SILVER) 0.4-300-250 mg-mcg-mcg tab Take 1 [...] Disease Maternal Uncle SOCIAL HISTORY: Lives in [place] with spouse. Retired from working at a [employer] Tobacco use: None Alcohol use: None Drug [...] Antibody Negative Negative Anti-Sm <1.0 AI 0.2 CONTENT PRODUCTION SPECIALIST Antibody QUAL Negative Negative Anti-CONTENT PRODUCTION SPECIALIST <1.0 AI 0.9 SSA Antibody Qual Negative Negative Anti-SSA <1.0 AI <0.2 Anti-SSB <1.0 AI <0.2 SSB Antibody Qual Negative Negative CENTROMERE AB QUAL Negative Negative Centromere Ab <1.0 AI <0.2 Scleroderma Ab Qual Negative Negative Scl-70 Abs, EIA <1.0 AI <0.2 ROSEANNE 1 ANTIBODY QUAL Negative Negative Roseanne 1 Antibody <1.0 AI <0.2 Ribosomal CONTENT PRODUCTION SPECIALIST Qualitative Negative Negative Ribosomal CONTENT PRODUCTION SPECIALIST Ab <1.0 AI <0.2 Chromatin Ab Qual [...] - Check labs. Notify of results via Arkivum 2. Generalized osteoarthritis: Hands (per exam), likely [...] patient. Darrell Jack MD documented in this encounterMetro[facility]09-24-2024 Telephone encounter Note * Telephone Encounter - [...] Sequeira LPN February 22, 2024 10:22 AM [facility] Miscellaneous Notes* Telephone Encounter - Jacque Sequeira [...] 22, 2024 10:22 AM documented in this encounterMetro[facility]09-10-2024 Telephone encounter Note * Telephone Encounter - [...] Diaz MA February 08, 2024 9:52 AM [facility] Miscellaneous Notes* Telephone Encounter - Robin Diaz [...] 08, 2024 9:52 AM documented in this encounterMetro[facility]09-10-2024 Telephone encounter Note * Telephone Encounter - [...] Diaz MA February 08, 2024 9:48 AM [facility] Miscellaneous Notes* Telephone Encounter - Robin Diaz [...] 08, 2024 9:48 AM documented in this encounterMetrohealth [facility]07-17-2024 History of Present illness Narrative* Mattie Somers APRN.DEICER REPAIRER - 12/15/2023 2:05 PM EDT CC: Patient [...] TAKE 2 CAPSULES ONCE DAILY MV with Enk-Genwoxqx-Aykhqz (CENTRUM SILVER) 0.4-300-250 mg-mcg-mcg tab Take 1 [...] plan. Mattie Somers APRN.CNP documented in this encounterMetrohealth [facility]06-10-2024 Telephone encounter Note * Telephone Encounter - Smiley Silveira RN - 11/08/2023 4:00 PM EDT See Office visit from 11/08/23. Smiley Silveira RN [facility]06-10-2024 Miscellaneous Notes* Telephone Encounter - Smiley Silveira RN - 11/08/2023 4:00 PM EDT See Office visit from 11/08/23. Smiley Silveira RN documented in this encounterMetrohealth [facility]06-10-2024 History of Present illness Narrative* Felix Ornelas MD - 11/08/2023 2:34 PM EDT Images from the original note were not included. Felix Ornelas MD Interventional Cardiology [address] [place] [address] [phone] Chief Complaint Patient presents with: Follow Up [...] ONCE DAILY 180 capsule 3 MV with Viz-Uccqjobr-Fjjkbc (CENTRUM SILVER) 0.4-300-250 mg-mcg-mcg tab Take 1 [...] to correct any errors. documented in this encounterMetrohealth [facility]05-29-2024 History of Present illness Narrative* Anastasiya Murphy [...] PATIENT PRESENTS WITH AN IMPLANTABLE OR ATTACHED BIG DATA ENGINEER: No RADIOLOGY DEPARTMENT: MR; Exam(s) Completed: Spine: Lumbar spine PERIPHERAL IV DATA: Not applicable SIGNED BY: RT Prosper(R) October 27, 2023 3:00 PM documented in this encounterMetrohealth [facility]05-24-2024 Nurse Note* Jodie Valerio MA - 10/22/2023 1:23 PM EDT PLQ eye exam done on 10/07/2023 at [facility] No evidence of PLQ toxicity. Report sent for scanning. Jodie Valerio MA [facility]05-24-[facility] Nurse Note* Jodie Valerio MA - 10/22/2023 1:23 PM EDT PLQ eye exam done on 10/07/2023 at [facility] No evidence of PLQ toxicity. Report sent for scanning. Jodie Valerio MA documented in this encounterMetrohealth [facility]05-02-2024 Reason for visit Narrative* Diagnostic Procedure Only (Routine) - Closed Specialty Diagnoses / Procedures Referred By Yuni t Referred To Contact Radiology / RADIO MRI [facility] Diagnoses MRI LUMBAR SPINE WO IVCON Order is under scanned docs 09/30/2023 Procedures MRI SPINAL CANAL LUMBAR W/O CONTRAST MATERIAL MRI WO SANDRO [address] Elvia Baker MD [address] [place] [address] [facility] [address] [place] [address] Referral ID Status Reason Start Date Expiration Date Visits Re quested Visits Authorized [id number] Closed 10/04/2023 05/30/2024 1 1 [facility] History of Present illness Narrative* Kusum Block PA-C - 09/23/2023 1:56 PM EDTAssociated Order(s): Large Joint Arthro/Inj: L knee joint Post-Procedure Diagnose(s): Arthritis of knee; Acute pain of left knee Kusum Block PA-C Department of Orthopaedics Orthopaedics [address] [address] Dept: [phone] September 23, 2023 CHIEF COMPLAINT: Established Patient, [...] knee joint Informed Consent Consent Obtained: Verbal [place] Protocol A moment to CARE was completed. [...] TAKE 2 CAPSULES ONCE DAILY MV with Gfz-Qisixjpj-Ywhtqh (CENTRUM SILVER) 0.4-300-250 mg-mcg-mcg tab Take 1 tablet by mouth oncedaily. diclofenac (VOLTAREN) 1 % topical gel Apply 2 g to affected area two times a day. (Patient not taking: Reported on 09/23/2023) No current facility-administered medications for this visit. Allergies: Lisinopril, Pravastatin, and Zithromax [Azithromycin] This note was partially generated using Monaeo voice recognition system, and there may be some incorrect words, spellings, and punctuation that were not noted in checking the note before saving. Kusum Block PA-C documented in this encounterMetrohealth [facility]04-17-2024 Instructions* Patient Instructions* Keiko Maloney APRN.CNP - 09/15/2023 7:40 AM EDT Restart Topiramate. Take 50 mg (1/2 tablet) for 1 week. Then take 100 mg daily. documented in this encounterMetrohealth [facility]04-17-2024 History of Present illness Narrative* Keiko Maloney [...] visit. Either the patient or their legal insurance service representative has been informed of the risks [...] Follow-up Impression and Plan from last visit: [facility] 03/05/[address] Isaac. Ms. Givens is [...] TAKE 2 CAPSULES ONCE DAILY MV with Moe-Bmyzshqm-Ocgdxe (CENTRUM SILVER) 0.4-300-250 mg-mcg-mcg tab Take 1 tablet by mouth oncedaily. I have reviewed the Natan Status Assessment responses and discussed these with the patient: Yes, Keiko Maloney APRN.DEICER REPAIRER HEADACHE SCORES: 05/26/2021 02/26/2022 09/08/2023 Headache Questions [...] articulation, and clear,coherent, and relevant. Short and joint terminal attack controller memory, cognition and general fund of knowledge [...] which included preparing to see the patient, hdwi-cn-dfvu patient care, completing clinical documentation, obtaining and/or reviewing separately obtained history, performing a medically appropriate examination, counseling and educating the patient/family/caregiver, and ordering medications, tests, or procedures. Keiko Maloney APRN.DEICER REPAIRER documented in this encounterMetrohealth [facility]04-15-2024 Miscellaneous Notes* Telephone Encounter - Crystal Pinto [...] you. Marybeth Webb LPN. documented in this encounterMetrohealth [facility]04-01-2024 Miscellaneous Notes* Telephone Encounter - Keshia Givens [...] results found for: URICACID documented in this encounterMetrohealth [facility]11-20-2023 Miscellaneous Notes* Telephone Encounter - Staci Osorio [...] Thank you. RUTH Almaguer. documented in this encounterMetrohealth [facility]10-25-2023 History of Present illness Narrative* Darrell Jack MD - 03/24/2023 10:39 AM EDT On 03/24/2023, I had the pleasure of evaluating Berenice Givens in a [facility] for inflammatory arthritis. HPI: To [...] TAKE 2 CAPSULES ONCE DAILY MV with Cni-Ottcoogi-Ttdryg (CENTRUM SILVER) 0.4-300-250 mg-mcg-mcg tab Take 1 tablet by mouth oncedaily. No current facility-administered medications for this visit. FAMILY HISTORY Problem Relation Age of Onset Cancer Paternal Grandfather Lung Diabetes Mother Alzheimer's Disease Mother Heart Maternal Grandfather Alzheimer's Disease Maternal Grandmother Alzheimer's Disease Maternal Aunt Alzheimer's Disease Maternal Uncle Alzheimer's Disease Maternal Uncle Breast Cancer Sister bilateral mastectomy SOCIAL HISTORY: Lives in [place] with spouse. Retired from working at a [...] Antibody Negative Negative Anti-Sm <1.0 AI 0.2 CONTENT PRODUCTION SPECIALIST Antibody QUAL Negative Negative Anti-CONTENT PRODUCTION SPECIALIST <1.0 AI 0.9 SSA Antibody Qual Negative Negative Anti-SSA <1.0 AI <0.2 Anti-SSB <1.0 AI <0.2 SSB Antibody Qual Negative Negative CENTROMERE AB QUAL Negative Negative Centromere Ab <1.0 AI <0.2 Scleroderma Ab Qual Negative Negative Scl-70 Abs, EIA <1.0 AI <0.2 ROSEANNE 1 ANTIBODY QUAL Negative Negative Roseanne 1 Antibody <1.0 AI <0.2 Ribosomal CONTENT PRODUCTION SPECIALIST Qualitative Negative Negative Ribosomal CONTENT PRODUCTION SPECIALIST Ab <1.0 AI <0.2 Chromatin Ab Qual [...] patient. Darrell Jack MD documented in this encounterMetro[facility]09-29-2023 Instructions* Patient Instructions* Mattie Somers APRN.CNP - 02/26/2023 1:37 PM EDT Recommended Vaccines by CDC for traveling to [facility]: Cholera Hepatitis A and B Rabies? Typhoid Yellow Fever Need to get updated tetanus Tdap vaccine as well. Malaria preventative - On hydroxychloroquine. documented in this encounterMetrohealth [facility]09-29-2023 History of Present illness Narrative* Mattie Somers APRN.CNP - 02/26/2023 1:11 PM EDT CC: Patient presents with: Recheck: 6 month follow up Immunizations: Flu vaccination HPI Berenice Givens is a 57 year old female who presents today for routine follow up but wanting advice of vaccinations for a trip to [facility] in July. Lupus: Sees rheumatology and on [...] needed for Wheezing/Shortness of Breath. MV with Bly-Taptqkvc-Wxguqu (CENTRUM SILVER) 0.4-300-250 mg-mcg-mcg tab Take 1 [...] - Instructed patient to contact office or ykwal-wp-wafs after-hours promptly should condition worsen or any new symptoms appear. - Counseling [facility] and after hours crisis line 7. Gastroesophageal [...] with more than 50% of the total havv-lm-vepw time of the visit in counseling / coordination of care. Prescription instructions reviewed with patient as applicable. Potential red flag symptoms discussed with the patient. Reviewed appropriate action plan to take if red flag symptoms occur. Patient agreeable to treatment plan. Mattie Somers APRN.CNP documented in this encounterMetrohealth [facility]08-25-2023 Miscellaneous Notes* Telephone Encounter - Emanuel Palomares [...] URICACID Johnson Dailey MA documented in this encounterMetrohealth [facility] Center07-31-2023 Miscellaneous Notes* Telephone Encounter - Senait Ngo [...] patient. Senait Ngo Ma documented in this encounterMetrohealth [facility]05-11-2023 History of Present illness Narrative* Emanuel Palomares APRN.DEICER REPAIRER - 10/08/2022 1:00 PM EDT [facility] for SLE. HPI: To review, [...] needed for Wheezing/Shortness of Breath. MV with Fuj-Hxpyklae-Btueko (CENTRUM SILVER) 0.4-300-250 mg-mcg-mcg tab Take 1 tablet by mouth oncedaily. No current facility-administered medications for this visit. FAMILY HISTORY Problem Relation Age of Onset Cancer Paternal Grandfather Lung Diabetes Mother Alzheimer's Disease Mother Heart Maternal Grandfather Alzheimer's Disease Maternal Grandmother Alzheimer's Disease Maternal Aunt Alzheimer's Disease Maternal Uncle Alzheimer's Disease Maternal Uncle Breast Cancer Sister bilateral mastectomy SOCIAL HISTORY: Lives in [place] with [place]. Retired from working at a [employer] Tobacco use: None Alcohol use: None Drug [...] Abs Lymph 1.00 - 4.00 k/uL 1.79 [place]% % 6.9 Abs [place] <0.87 k/uL 0.62 Eosin% % 2.9 Abs [...] Antibody Negative Negative Anti-Sm <1.0 AI 0.2 CONTENT PRODUCTION SPECIALIST Antibody QUAL Negative Negative Anti-CONTENT PRODUCTION SPECIALIST <1.0 AI 0.9 SSA Antibody Qual Negative Negative Anti-SSA <1.0 AI <0.2 Anti-SSB <1.0 AI <0.2 SSB Antibody Qual Negative Negative CENTROMERE AB QUAL Negative Negative Centromere Ab <1.0 AI <0.2 Scleroderma Ab Qual Negative Negative Scl-70 Abs, EIA <1.0 AI <0.2 ROSEANNE 1 ANTIBODY QUAL Negative Negative Roseanne 1 Antibody <1.0 AI <0.2 Ribosomal CONTENT PRODUCTION SPECIALIST Qualitative Negative Negative Ribosomal CONTENT PRODUCTION SPECIALIST Ab <1.0 AI <0.2 Chromatin Ab Qual [...] which included preparing to see the patient, yfsj-rp-yprs patient care, completing clinical documentation, performing a medically appropriate examination, ordering medications, tests, or procedures, and communicating results to the patient/fam delvin/caregiver. Emanuel Palomares APRN.ELDER documented in this encounterMetrohealth [facility]05-11-2023 Instructions* Patient Instructions* Emanuel Palomares APRN.ELDER - 10/08/2022 12:35 PM EDT Please have labs done around 02/19/2023 documented in this encounterMetrohealth [facility]04-28-2023 Miscellaneous Notes* Telephone Encounter - Marybeth Roche [...] you. Marybeth Roche LPN documented in this encounterMetrohealth [facility]03-28-2023 History of Present illness Narrative* David Chicas [...] VENTOLIN HFA) 90 mcg/actuation inhaler MV with Pjf-Aavfmgvv-Jvsxon (CENTRUM SILVER) 0.4-300-250 mg-mcg-mcg tab Review of [...] intervention David Chicas MD documented in this encounterMetrohealth [facility] Center02-20-2023 Instructions* Patient Instructions* Prachi Cuadra APRN.[facility] - 07/20/2022 4:30 PM EST Heart Disease in Women Is heart disease a problem for women? Heart disease is the leading cause of of [place] women. More women from heart disease than [...] disease. You can get more information from: [place] Heart Ybqwgwuxjml8-419-TZB-USA-1 ( )www.heart.org Developed by [employer]. Published by [employer]. Copyright 2014 [employer] and/or one of its subsidiaries. All rights reserved. documented in this encounterMetrohealth [facility] Center02-20-2023 History of Present illness Narrative* Prachi Cuadra [...] of Breath. 18 g 5 MV with Tyg-Ziopgzdi-Nemxia (CENTRUM SILVER) 0.4-300-250 mg-mcg-mcg tab Take 1 [...] 20, 2022, 3:28 PM documented in this encounterMetrohealth [facility] Center02-09-2023 Miscellaneous Notes* Telephone Encounter - Licha Irwin RN - 07/09/2022 10:34 AM EST Spoke to pt. Voices understanding. States she would be willing to add Zetia. Please call rx to [facility] in [place]. Thank you. Licha Irwin RN * Telephone [...] statin intolerances. Thank you! documented in this encounterMetrohealth [facility] Center01-26-2023 History of Present illness Narrative* Emanuel Palomares APRN.DEICER REPAIRER - 06/25/2022 1:00 PM EST [facility] for SLE. HPI: To review, [...] needed for Wheezing/Shortness of Breath. MV with Gke-Mwxczjew-Mjybne (CENTRUM SILVER) 0.4-300-250 mg-mcg-mcg tab Take 1 tablet by mouth oncedaily. No current facility-administered medications for this visit. FAMILY HISTORY Problem Relation Age of Onset Cancer Paternal Grandfather Lung Diabetes Mother Alzheimer's Disease Mother Heart Maternal Grandfather Alzheimer's Disease Maternal Grandmother Alzheimer's Disease Maternal Aunt Alzheimer's Disease Maternal Uncle Alzheimer's Disease Maternal Uncle Breast Cancer Sister bilateral mastectomy SOCIAL HISTORY: Lives in [place] with spouse. Retired from working at a [employer] Tobacco use: None Alcohol use: None Drug [...] Antibody Negative Negative Anti-Sm <1.0 AI 0.2 CONTENT PRODUCTION SPECIALIST Antibody QUAL Negative Negative Anti-CONTENT PRODUCTION SPECIALIST <1.0 AI 0.9 SSA Antibody Qual Negative Negative Anti-SSA <1.0 AI <0.2 Anti-SSB <1.0 AI <0.2 SSB Antibody Qual Negative Negative CENTROMERE AB QUAL Negative Negative Centromere Ab <1.0 AI <0.2 Scleroderma Ab Qual Negative Negative Scl-70 Abs, EIA <1.0 AI <0.2 ROSEANNE 1 ANTIBODY QUAL Negative Negative Roseanne 1 Antibody <1.0 AI <0.2 Ribosomal CONTENT PRODUCTION SPECIALIST Qualitative Negative Negative Ribosomal CONTENT PRODUCTION SPECIALIST Ab <1.0 AI <0.2 Chromatin Ab Qual [...] labs in 07/3022. Notify of results via Arkivum 2. Generalized osteoarthritis: Hands (per exam), likely [...] which included preparing to see the patient, ghhy-pv-bztu patient care, completing clinical documentation, performing a medically appropriate examination, ordering medications, tests, or procedures, and communicating results to the patient/fam delvin/caregiver. Emanuel Palomares APRN.CNP documented in this encounterMetrohealth [facility] Center01-24-2023 Instructions* Patient Instructions* Emanuel Palomares APRN.CNP - 06/23/2022 7:49 AM EST Please have labs done around 08/20/2022 Please have Plaquenil eye exam results faxed to [phone] documented in this encounterMetrohealth [facility] Center01-10-2023 Miscellaneous Notes* Telephone Encounter - Sara Montanez - 06/09/2022 7:38 AM EST Left detailed message on a secured voicemail. Sara Montanez * Telephone Encounter - Sara Frazier APRN.CNP - 06/09/2022 7:22 AM EST Please notify that covid/flu testing negative. Continue with plan of care as discussed during visit. documented in this encounterMetrohealth [facility] Center12-02-2022 History of Present illness Narrative* Chemo Christie [...] needed for Wheezing/Shortness of Breath. MV with Kxt-Wphemhqs-Uikayj (CENTRUM SILVER) 0.4-300-250 mg-mcg-mcg tab Take 1 [...] COVID-19 and [facility] She is going to a wedding soon and would like to have testing. - Supportive care treatment . - Red flags to seek further treatment include chest pain, shortness of breath, and lethargy; in theER if severe. - COVID WITH FLUA+B, ROUTINE Chemo Christie MD documented in this encounterMetrohealth [facility] Center11-22-2022 Miscellaneous Notes* Telephone Encounter - Dennise Palomares RN - 04/21/2022 4:44 PM EST Last Office Visit: 02/25/2022 Future Office Visit: None Requested Prescriptions Pending Prescriptions Disp Refills cholecalciferol (VITAMIN D3) 5,000 unit tab 90 tablet 3 Sig: Take 1 tablet by mouth once daily. Date of Last Labs: 01/30/2021 documented in this encounterMetrohealth [facility] Center11-04-2022 Miscellaneous Notes* Telephone Encounter - Delicia Gallegos [...] PCP if not improving. documented in this encounterMetrohealth [facility] Center11-03-2022 History of Present illness Narrative* Anny Iqbal PA-C - 04/02/2022 6:11 PM EDT This note was created using Acetec Semiconductorriter. Subjective Berenice Givens is a 57 year [...] of Breath. 18 g 5 MV with Hhx-Lteuzfgf-Tgiwdu (CENTRUM SILVER) 0.4-300-250 mg-mcg-mcg tab Take 1 tablet by mouth oncedaily. 1 tablet 0 Current Facility-Administered Medications Medication Dose Route Frequency Provider Last Rate Last Admin perflutren lipid microspheres 1.3 mL in NaCl (PF) 0.9% 10 mL injection (DEFINITY) INTRAVENOUS DIRECTED PRN Carlita Broussard APRN.DEICER REPAIRER sodium chloride 0.9 % (flush) 10 mL [...] LAB Anny Iqbal PA-C documented in this encounterMetrohealth [facility] Center11-03-2022 History of Present illness Narrative* Teresa Starr [...] 02, 2022 3:35 PM documented in this encounterMetrohealth [facility] Center10-06-2022 History of Present illness Narrative* Rajiv Isaac [...] needed for Wheezing/Shortness of Breath. MV with Nlp-Bosqcegh-Idsfra (CENTRUM SILVER) 0.4-300-250 mg-mcg-mcg tab Take 1 [...] fluent. Stable primary gait. Rajiv Isaac DO [facility] [address] [place] [address] Level of service: Est level 2 (10-19 min). Time spent 16 min on the day of service, which included preparing to see the patient, aipr-ek-tczg patient care, completing clinical documentation, obtaining and/or reviewing separately obtained history, counseling and educating the patient/family/caregiver, and ordering medications, tests, or procedures. Medical Decision Making: Medical Decision Making Level: 1 - N/A cc: David Chicas [address] [place] [address] documented in this encounterMetrohealth [facility] Center10-04-2022 Miscellaneous Notes* Telephone Encounter - Jodie Valerio [...] When patient went to the Pharmacy to machine pecan picker the script it was not Plaquenil, but Methotrexate. She would like to be called at [phone] to discuss this issue. ALBANIA Suarez documented in this encounterMetrohealth [facility] Center10-03-2022 Miscellaneous Notes* Telephone Encounter - Zach Mir RP - 03/02/2022 11:[address] Chicas, We received notice that the breaker up machine operator updated the co-pay card and their website [...] LPN - 02/26/2022 2:00 PM EDT Denied CaseId:[id number];Status:Denied;Review Type:Prior Auth;Appeal Information: Attention:ATTN: [employer] [address] [address],[facility],[phone] ; Important - Please read the below [...] mg/0.5 mL pen injector documented in this encounterMetrohealth [facility] Center09-28-2022 Miscellaneous Notes* Addendum Note - Darrell Jack MD - 02/25/2022 3:56 PM EDTAddended by: DARRELL JACK on: 02/25/2022 03:56 PM Modules accepted: Orders documented in this encounterMetrohealth [facility] Center09-28-2022 History of Present illness Narrative* Darrell Jack MD - 02/25/2022 2:55 PM EDT On 02/25/2022, I had the pleasure of evaluating Berenice Givens in a follow[facility]up [facility] for SLE. This Team Access [...] needed for Wheezing/Shortness of Breath. MV with Vmu-Oygaumcr-Chpaks (CENTRUM SILVER) 0.4-300-250 mg-mcg-mcg tab Take 1 [...] Sister bilateral mastectomy SOCIAL HISTORY: Lives in [place] with spouse. Retired from working at a [employer] Tobacco use: None Alcohol use: None Drug [...] Antibody Negative Negative Anti-Sm <1.0 AI 0.2 CONTENT PRODUCTION SPECIALIST Antibody QUAL Negative Negative Anti-CONTENT PRODUCTION SPECIALIST <1.0 AI 0.9 SSA Antibody Qual Negative Negative Anti-SSA <1.0 AI <0.2 Anti-SSB <1.0 AI <0.2 SSB Antibody Qual Negative Negative CENTROMERE AB QUAL Negative Negative Centromere Ab <1.0 AI <0.2 Scleroderma Ab Qual Negative Negative Scl-70 Abs, EIA <1.0 AI <0.2 ROSEANNE 1 ANTIBODY QUAL Negative Negative Roseanne 1 Antibody <1.0 AI <0.2 Ribosomal CONTENT PRODUCTION SPECIALIST Qualitative Negative Negative Ribosomal CONTENT PRODUCTION SPECIALIST Ab <1.0 AI <0.2 Chromatin Ab Qual [...] panel and CCP. Notify of results via Arkivum 2. Generalized osteoarthritis: Hands (per exam), likely [...] patient. Darrell Jack MD documented in this [facility] History of Present illness Narrative* David Chicas [...] VENTOLIN HFA) 90 mcg/actuation inhaler MV with Wvd-Uzkszwfw-Ylkvcq (CENTRUM SILVER) 0.4-300-250 mg-mcg-mcg tab Current Facility-Administered [...] 20) David Chicas MD documented in this encounter[facility] Miscellaneous Notes* Telephone Encounter - Refugio Valdes - 12/30/2021 11:05 AM EDT Pt is scheduled for their [facility] US on 02/24 at [facility] * Telephone Encounter - Refugio Valdes - 12/30/2021 10:36 AM EDT Called patient on 12/30 at 10:36 to schedule their MSK US exam. No answer. * Telephone Encounter - Enmanuel Phoenix - 12/30/2021 10:19 AM EDT Patient called the [facility] US Department back on 12/30/21 at 10:16 [...] FACILITY Slot held: N/A documented in this encounterMet[facility] History of Present illness Narrative* Maddi Cordova [...] 23, 2021 3:35 PM documented in this encounterMet[facility]22 Miscellaneous Notes* Telephone Encounter - Brooklyn Paul [...] you. Brooklyn Paul RN documented in this encounterMet[facility]27-[facility]22 Miscellaneous Notes* Telephone Encounter - Prachi Frias LPN - 09/24/2021 8:14 AM EDT Patient's request for medication is as follows: Pending Prescriptions Disp Refills LOSARTAN 25 MG TABLET 270 tablet 3 Sig: TAKE 3 TABLETS ONCE DAILY ANDREW: Yes Last seen 07/14/2021 in [employer] [facility]. Follow up scheduled for 07/13/2022. Prescription(s) as above. Please process accordingly. Prachi Frias LPN documented in this encounterMet[facility]22 Miscellaneous Notes* Telephone Encounter - LU Almaguer [...] Thank you. LU Almaguer documented in this encounterMet[facility]04-05-2022 Miscellaneous Notes* Telephone Encounter - Gil Patterson RN - 09/02/2021 11:22 AM EDT [facility] asking for zetia Rx to be a 90 day supply due to plan coverage. Pended. documented in this encounterMet[facility]28-[facility] History of Past illness Narrative* Problem Noted Date Resolved Date Cigarette smoker 06/27/2021 08/26/2021 documented as of this encounter (statuses as of 09/03/2021) [facility] of [facility] Narrative* Problem Noted Date Resolved Date Cigarette smoker 06/27/2021 08/26/2021 documented as of this encounter (statuses as of 09/08/2021) [facility] of [facility] Narrative* Problem Noted Date Resolved Date Cigarette smoker 06/27/2021 08/26/2021 documented as of this encounter (statuses as of 09/22/2021) [address]28-2022 History of Past illness Narrative* Problem Noted Date Resolved Date Cigarette smoker 06/27/2021 08/26/2021 documented as of this encounter (statuses as of 09/24/2021) [address]28-2022 History of Past illness Narrative* Problem Noted Date Resolved Date Cigarette smoker 06/27/2021 08/26/2021 documented as of this encounter (statuses as of 12/30/2021) [address]28-2022 History of Past illness Narrative* Problem Noted Date Resolved Date Cigarette smoker 06/27/2021 08/26/2021 documented as of this encounter (statuses as of 02/25/2022) [address]28-2022 History of Past illness Narrative* Problem Noted Date Resolved Date Cigarette smoker 06/27/2021 08/26/2021 documented as of this encounter (statuses as of 02/25/2022) [address]28-2022 History of Past illness Narrative* Problem Noted Date Resolved Date Cigarette smoker 06/27/2021 08/26/2021 documented as of this encounter (statuses as of 02/25/2022) [address]28-2022 History of Past illness Narrative* Problem Noted Date Resolved Date Cigarette smoker 06/27/2021 08/26/2021 documented as of this encounter (statuses as of 03/02/2022) [address]28-2022 History of Past illness Narrative* Problem Noted Date Resolved Date Cigarette smoker 06/27/2021 08/26/2021 documented as of this encounter (statuses as of 03/03/2022) [address]28-2022 History of Past illness Narrative* Problem Noted Date Resolved Date Cigarette smoker 06/27/2021 08/26/2021 documented as of this encounter (statuses as of 03/05/2022) [address]28-2022 History of Past illness Narrative* Problem Noted Date Resolved Date Cigarette smoker 06/27/2021 08/26/2021 documented as of this encounter (statuses as of 03/20/2022) [address]28-2022 History of Past illness Narrative* Problem Noted Date Resolved Date Cigarette smoker 06/27/2021 08/26/2021 documented as of this encounter (statuses as of 04/02/2022) [address]22 History of Past illness Narrative* Problem Noted Date Resolved Date Cigarette smoker 06/27/2021 08/26/2021 documented as of this encounter (statuses as of 04/03/2022) [address]28-2022 History of Past illness Narrative* Problem Noted Date Resolved Date Cigarette smoker 06/27/2021 08/26/2021 documented as of this encounter (statuses as of 04/22/2022) [address]28-2022 History of Past illness Narrative* Problem Noted Date Resolved Date Cigarette smoker 06/27/2021 08/26/2021 documented as of this encounter (statuses as of 05/01/2022) [address]28-2022 History of Past illness Narrative* Problem Noted Date Resolved Date Cigarette smoker 06/27/2021 08/26/2021 documented as of this encounter (statuses as of 05/24/2022) [address]28-2022 History of Past illness Narrative* Problem Noted Date Resolved Date Cigarette smoker 06/27/2021 08/26/2021 documented as of this encounter (statuses as of 06/09/2022) [address]28-2022 History of Past illness Narrative* Problem Noted Date Resolved Date Cigarette smoker 06/27/2021 08/26/2021 documented as of this encounter (statuses as of 06/25/2022) [address]28-2022 History of Past illness Narrative* Problem Noted Date Resolved Date Cigarette smoker 06/27/2021 08/26/2021 documented as of this encounter (statuses as of 07/09/2022) [address]28-2022 History of Past illness Narrative* Problem Noted Date Resolved Date Cigarette smoker 06/27/2021 08/26/2021 documented as of this encounter (statuses as of 07/10/2022) [address]28-2022 History of Past illness Narrative* Problem Noted Date Resolved Date Cigarette smoker 06/27/2021 08/26/2021 documented as of this encounter (statuses as of 07/21/2022) [address]28-2022 History of Past illness Narrative* Problem Noted Date Resolved Date Cigarette smoker 06/27/2021 08/26/2021 documented as of this encounter (statuses as of 08/26/2022) [address]2022 History of Past illness Narrative* Problem Noted Date Resolved Date Cigarette smoker 06/27/2021 08/26/2021 documented as of this encounter (statuses as of 09/25/2022) [address]28-2022 History of Past illness Narrative* Problem Noted Date Resolved Date Cigarette smoker 06/27/2021 08/26/2021 documented as of this encounter (statuses as of 10/08/2022) [address]28-2022 History of Past illness Narrative* Problem Noted Date Diagnosed Date Resolved Date Cigarette smoker 06/27/2021 08/26/2021 documented as of this encounter (statuses as of 12/30/2022) [address]28-2022 History of Past illness Narrative* Problem Noted Date Diagnosed Date Resolved Date Cigarette smoker 06/27/2021 08/26/2021 documented as of this encounter (statuses as of 01/22/2023) [address]28-2022 History of Past illness Narrative* Problem Noted Date Diagnosed Date Resolved Date Cigarette smoker 06/27/2021 08/26/2021 documented as of this encounter (statuses as of 01/22/2023) [address]28-2022 History of Past illness Narrative* Problem Noted Date Diagnosed Date Resolved Date Cigarette smoker 06/27/2021 08/26/2021 documented as of this encounter (statuses as of 02/12/2023) [address]28-2022 History of Past illness Narrative* Problem Noted Date Diagnosed Date Resolved Date Cigarette smoker 06/27/2021 08/26/2021 documented as of this encounter (statuses as of 02/27/2023) [address]28-2022 History of Past illness Narrative* Problem Noted Date Diagnosed Date Resolved Date Cigarette smoker 06/27/2021 08/26/2021 documented as of this encounter (statuses as of 03/24/2023) [address]28-2022 History of Past illness Narrative* Problem Noted Date Diagnosed Date Resolved Date Cigarette smoker 06/27/2021 08/26/2021 documented as of this encounter (statuses as of 04/03/2023) [address]28-2022 History of Past illness Narrative* Problem Noted Date Diagnosed Date Resolved Date Cigarette smoker 06/27/2021 08/26/2021 documented as of this encounter (statuses as of 04/19/2023) [facility] Narrative* Problem Noted Date Diagnosed Date Resolved Date Cigarette smoker 06/27/2021 08/26/2021 documented as of this encounter (statuses as of 08/30/2023) [facility] of [facility] Narrative* Problem Noted Date Diagnosed Date Resolved Date Cigarette smoker 06/27/2021 08/26/2021 documented as of this encounter (statuses as of 09/14/2023) [facility] of [facility] illness Narrative* Problem Noted Date Diagnosed Date Resolved Date Cigarette smoker 06/27/2021 08/26/2021 documented as of this encounter (statuses as of 09/15/2023) [facility] of Present illness Narrative* Juan M [...] 19, 2021 4:32 PM documented in this encounterMet[facility] CenterEvaluation + Plan note No data available for this section [facility] Evaluation note* Diagnosis Discoid lupus erythematosus of eyelid, unspecified laterality documented in this encounter [facility]* Diagnosis Lupus (HCC) Systemic lupus erythematosus [facility]* Diagnosis Prediabetes- Primary Other abnormal glucose Lupus erythematosus, unspecified form Metabolic syndrome Dysmetabolic Syndrome X Depression with anxiety Dysthymic disorder Screening for HIV (human immunodeficiency virus) Special screening examination for other specified viral diseases Encounter for immunization Need for other specified prophylactic vaccination against single bacterial disease documented [facility] this encounter [facility]* Diagnosis Lupus (HCC)- Primary Systemic lupus erythematosus Long-term use of Plaquenil Encounter for long-term (current) use of other medications Pain in joint, multiple sites Long-term use of immunosuppressant medication Encounter for long-term (current) use of other medications Inflammatory arthritis Unspecified inflammatory polyarthropathy documented in this encounter [facility]* Diagnosis Migraine without aura and without status migrainosus, not intractable- Primary Migraine without aura, without mention of intractable migraine without mention of status migrainosus 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documented in this encounter [facility]* Diagnosis Groin pain, right- Primary documented in this encounter [facility] noteNo assessment information availableWOhioHealth [facility] Work Phone: Evaluation note* Diagnosis Vitamin D deficiency Unspecified vitamin D deficiency documented in this encounter [facility]* Diagnosis Throat pain- Primary documented in this encounter [facility]* Diagnosis Inflammatory arthritis- Primary Unspecified inflammatory polyarthropathy Osteoarthritis of multiple joints, unspecified osteoarthritis type Long-term use of Plaquenil Encounter for long-term (current) use of other medications documented in this encounter [facility]* Diagnosis Essential hypertension- Primary Unspecified essential hypertension Palpitations Hyperlipidemia, unspecified hyperlipidemia type Obesity (BMI 35.0-39.9 without comorbidity) Obesity, unspecified Elevated hemoglobin A1c Other abnormal blood chemistry documented in this encounter [facility]* Diagnosis Insulin resistance- Primary Dysmetabolic Syndrome X Metabolic syndrome Dysmetabolic Syndrome X Prediabetes Other abnormal glucose Morbid obesity (HCC) Morbid obesity Breast cancer screening by mammogram Essential hypertension Unspecified essential hypertension Hyperlipidemia, unspecified hyperlipidemia type WHITNEY (dyspnea on exertion) Other dyspnea and respiratory abnormality documented in this encounter [facility]* Diagnosis Discoid lupus erythematosus of eyelid, unspecified laterality documented in this encounter [facility]* Diagnosis Inflammatory arthritis- Primary Unspecified inflammatory polyarthropathy Osteoarthritis of multiple joints, unspecified osteoarthritis type Encounter for long-term (current) use of NSAIDs Encounter for long-term (current) use of non-steroidal anti-inflammatories documented in this encounter [facility]* Diagnosis Lupus erythematosus, unspecified form documented in this encounter [facility]* Diagnosis Prediabetes Other abnormal glucose Hypothyroidism Unspecified hypothyroidism documented in this encounter [facility]* Diagnosis Essential hypertension- Primary Unspecified essential hypertension Mixed hyperlipidemia Lupus erythematosus, unspecified form Prediabetes Other abnormal glucose Acquired hypothyroidism Unspecified hypothyroidism Depression with anxiety Dysthymic disorder Gastroesophageal reflux disease, unspecified whether esophagitis present Travel advice encounter Other specified counseling Need for influenza vaccination Need for prophylactic vaccination and inoculation against influenza documented in this encounter [facility]* Diagnosis Inflammatory arthritis- Primary Unspecified inflammatory polyarthropathy Long-term use of Plaquenil Encounter for long-term (current) use of other medications Osteoarthritis of multiple joints, unspecified osteoarthritis type [facility] Bilateral foot pain Pain in limb [facility] Diagnosis Vitamin D deficiency Unspecified vitamin D deficiency [facility]* Diagnosis Lupus erythematosus, unspecified form [facility] Diagnosis Migraine without aura and without status migrainosus, not intractable- Primary Migraine without aura, without mention of intractable migraine without mention of status migrainosus documented in this encounter [facility]* Diagnosis Acute pain of left knee- Primary Arthritis of knee Unspecified arthropathy, lower leg [facility] Diagnosis Essential hypertension- Primary Unspecified essential hypertension Hyperlipidemia, unspecified hyperlipidemia type Preoperative clearance Preoperative examination, unspecified documented in this encounter [facility]* Diagnosis Prediabetes Other abnormal glucose Hyperlipidemia Other and unspecified hyperlipidemia Hypothyroidism Unspecified hypothyroidism documented in this encounter [facility]* Diagnosis Essential hypertension- Primary Unspecified essential hypertension Mixed hyperlipidemia Prediabetes Other abnormal glucose Hypothyroidism, unspecified type documented in this encounter [facility]* Diagnosis Metabolic syndrome- Primary Dysmetabolic Syndrome [...] Dysmetabolic Syndrome X documented in this encounter [facility]* Diagnosis Metabolic syndrome- Primary Dysmetabolic Syndrome [...] anxiety Dysthymic disorder documented [facility] this [facility]* Diagnosis Metabolic syndrome- Primary Dysmetabolic Syndrome [...] Groin pain, right documented [facility] this encounter [facility]* Diagnosis Metabolic syndrome- Primary Dysmetabolic Syndrome [...] joint, multiple sites documented [facility] this encounter [facility]* Diagnosis Metabolic syndrome- Primary Dysmetabolic Syndrome [...] Diarrhea, unspecified type documented in this encounter [facility] note* Diagnosis Metabolic syndrome- Primary Dysmetabolic [...] joint, multiple sites documented in this encounter [facility] note* Diagnosis Metabolic syndrome- Primary Dysmetabolic [...] mention of complication documented [facility] this encounter [facility]* Diagnosis Metabolic syndrome- Primary Dysmetabolic Syndrome [...] of status migrainosus documented in this encounter [facility]* Diagnosis Metabolic syndrome- Primary Dysmetabolic Syndrome [...] mention of complication documented [facility] this encounter [facility]* Diagnosis Metabolic syndrome- Primary Dysmetabolic Syndrome [...] vitamin D deficiency [facility] this [facility]* Diagnosis Metabolic syndrome- Primary Dysmetabolic Syndrome [...] anxiety Dysthymic disorder documented in this encounter [facility] note* Diagnosis Metabolic syndrome- Primary Dysmetabolic [...] unspecified hyperlipidemia type documented in this encounter [facility] note* Diagnosis Metabolic syndrome- Primary Dysmetabolic [...] joint, multiple sites documented in this encounter [facility] note* Diagnosis Metabolic syndrome- Primary Dysmetabolic [...] Unspecified essential hypertension documented in this encounter [facility] note* Diagnosis Metabolic syndrome- Primary Dysmetabolic [...] unspecified osteoarthritis type documented in this encounter [facility] note* Diagnosis Metabolic syndrome- Primary Dysmetabolic [...] vitamin D deficiency documented in this encounter [facility]* Diagnosis Metabolic syndrome- Primary Dysmetabolic Syndrome [...] of status migrainosus [facility] Diagnosis Metabolic syndrome- Primary Dysmetabolic [...] anxiety Dysthymic disorder documented [facility] this encounter [facility]* Diagnosis Metabolic syndrome- Primary Dysmetabolic Syndrome [...] and unspecified hyperlipidemia documented [facility] this encounter [facility]* Diagnosis Metabolic syndrome- Primary Dysmetabolic Syndrome [...] fingers and thumb documented in this encounter [facility] note* Diagnosis Metabolic syndrome- Primary Dysmetabolic [...] encounter Other fatigue [facility]* Diagnosis Metabolic syndrome- Primary Dysmetabolic Syndrome [...] unspecified obesity type documented [facility] this encounter [facility]* Diagnosis Metabolic syndrome- Primary Dysmetabolic Syndrome [...] unspecified hyperlipidemia type documented in this encounter [facility]* Diagnosis Metabolic syndrome- Primary Dysmetabolic Syndrome [...] hypertension Pure hypercholesterolemia documented [facility] this [facility]* Diagnosis Metabolic syndrome- Primary Dysmetabolic Syndrome [...] unspecified osteoarthritis type [facility] this encounter [facility]* Diagnosis Metabolic syndrome- Primary Dysmetabolic Syndrome [...] surveillance and counseling documented in this encounter [facility]* Diagnosis Metabolic syndrome- Primary Dysmetabolic Syndrome [...] Unspecified essential hypertension documented in this encounter [facility] note* Diagnosis Metabolic syndrome- Primary Dysmetabolic [...] for breast cancer documented in this encounter [facility] note* Diagnosis Metabolic syndrome- Primary Dysmetabolic [...] Dysmetabolic Syndrome X [facility] Additional Instructions Clean area once daily with soap and water. Take all of the antibiotics as prescribed. If you develop worsening redness, swelling, pus, fever please come back for reevaluation.[facility] Work Phone: Reason for referral (narrative)* Diagnostic Procedure Only (Routine) - Closed Specialty Diagnoses / Procedures Referred By Contac t Referred To Contact US IMAGING Diagnoses Lupus (HCC) Procedures US HAND/WRIST SYNOVIAL SCREEN LT US COMPL JOINT R-T W/[place] [id number] [place] [address] Us Imaging Referral ID Status Reason Start Date Expiration Date V isits Requested Visits Authorized [id number] Closed Auto-Generate d Referral 12/23/2021 01/22/2023 1 1 * Diagnostic Procedure Only (Routine) - Closed Specialty Diagnoses / Procedures Referred By Contac t Referred To Contact US IMAGING Diagnoses Lupus (HCC) Procedures US HAND/WRIST SYNOVIAL SCREEN RT US COMPL JOINT R-T W/[place] [id number] [place] [id number] Us Imaging Referral ID Status Reason Start Date Expiration Date V isits Requested Visits Authorized [id number] Closed Auto-Generate d Referral 12/23/2021 01/22/2023 1 1 [facility] for referral (narrative)* Outpatient Procedure (Urgent) - Pending Review Specialty Diagnoses / Procedures Referred By Contac t Referred [facility] Diagnoses Groin pain, right Procedures US LEG VEIN DVT UNL VAS LAB DUP-SCAN XTR VEINS UNILATERAL/LIMITED STUDY Anny Iqbal PA-C [id number] [place] [address] [facility] [address] [place] [address] Referral ID Status Reason Start Date Expiration Date Visits Requested Visits Authorized [id number] Pending Review Auto-Generat ed Referral 04/02/2022 04/02/2023 1 1 * Diagnostic Procedure Only (Urgent) - Closed Specialty Diagnoses / Procedures Referred By Contac t Referred To Contact XR IMAGING Diagnoses Groin pain, right Procedures XR HIP GENERAL 3V PELV/AP/LAT RIGHT RADEX HIP UNILATERAL WITH PELVIS 2-3 VIEWS Anny Iqbal PA-C [address] [place] [address] Xr Imaging Referral ID Status Reason Start Date Expiration Date V isits Requested Visits Authorized [id number] Closed Auto-Generate d Referral 04/02/2022 05/02/2023 1 1 [facility] for referral (narrative)* Outpatient Procedure (Routine) - Closed Specialty Diagnoses / Procedures Referred By Contac t Referred [facility] Diagnoses Essential hypertension Palpitations Hyperlipidemia, unspecified hyperlipidemia type Procedures ECG COMPLETE ECG ROUTINE ECG W/LEAST 12 LDS W/I&R Prachi Cuadra APRN.DEICER REPAIRER [address] [place] [address] [facility] [address] [place] [address] Referral ID Status Reason Start Date Expiration Date V isits Requested Visits Authorized [id number] Closed Auto-Generate d Referral 07/14/2022 07/14/2023 1 1 [facility] for referral (narrative)* Diagnostic Procedure Only (Routine) - Pending Review Specialty Diagnoses / Procedures Referred By Contac t Referred To Contact BR IMAGING Diagnoses Breast cancer screening by mammogram Procedures JAZMYNE SCREENING W FACUNDO SCREENING DIGITAL BREAST TOMOSYNTHESIS BI SCREENING MAMMOGRAPHY BI 2-VIEW BREAST INC David Chavis MD [address] [place] [address] [facility] [address] [place] [address] Referral ID Status Reason Start Date Expiration Date Visits Requested Visits Authorized [id number] Pending Review Auto-Generat ed Referral 08/25/2022 09/24/2023 1 1 [facility] for referral (narrative)* Diagnostic Procedure Only (Routine) - Closed Specialty Diagnoses / Procedures Referred By Contac t Referred To Contact XR IMAGING Diagnoses Bilateral foot pain Procedures XR FOOT GENERAL 3V AP/LAT/OBL BILATERAL RADEX FOOT COMPLETE MINIMUM 3 VIEWS [facility], Rivas [address] [place] [address] [place] [address] Referral ID Status Reason Start Date Expiration Date V isits Requested Visits Authorized [id number] Closed Auto-Generate d Referral 11/06/2022 12/06/2023 1 1 [facility] for referral (narrative)* Outpatient Procedure (Routine) - Pending Review Specialty Diagnoses / Procedures Referred By Contac t Referred To Contact [facility] Diagnoses Essential hypertension Hyperlipidemia, unspecified hyperlipidemia type Procedures ECG COMPLETE ECG ROUTINE ECG W/LEAST 12 LDS W/I&R Felix Ornelas MD [address] [place] [address] [facility] [address] [place] [address] Referral ID Status Reason Start Date Expiration Date Visits Requested Visits Authorized [id number] Pending Review Auto-Generat ed Referral 11/08/2023 11/07/2024 1 1 [facility] for referral (narrative)* Diagnostic Procedure Only (Urgent) - Closed Specialty Diagnoses / Procedures Referred By Contac t Referred To Contact XR IMAGING Diagnoses Groin pain, right Procedures XR HIP GENERAL 3V PELV/AP/LAT RIGHT RADEX HIP UNILATERAL WITH PELVIS 2-3 VIEWS Anny Iqbal PA-C [address] [place] [address] [place] [address] Referral ID Status Reason Start Date Expiration Date V isits Requested Visits Authorized [id number] Closed Auto-Generate d Referral 04/02/2022 05/02/2023 1 1 [facility] for referral (narrative)* Diagnostic Procedure Only (Routine) - Closed Specialty Diagnoses / Procedures Referred By Contac t Referred To Contact XR IMAGING Diagnoses Lupus Procedures XR LUMBAR GENERAL 3V AP/LAT/L5-S1 RADEX SPINE LUMBOSACRAL 2/[place] [address] [place] [id number] [place] [address] Referral ID Status Reason Start Date Expiration Date V isits Requested Visits Authorized [id number] Closed Auto-Generate d Referral 12/23/2021 01/22/2023 1 1 * Diagnostic Procedure Only (Routine) - Closed Specialty Diagnoses / Procedures Referred By Contac t Referred To Contact XR IMAGING Diagnoses Lupus Pain in joint, multiple sites Procedures XR HAND GENERAL 3V PA/LAT/OBL BILATERAL RADEX HAND MINIMUM [place] [address] [address] [phone] [place] [address] Referral ID Status Reason Start Date Expiration Date V isits Requested Visits Authorized [id number] Closed Auto-Generate d Referral 12/23/2021 01/22/2023 1 1 [facility] for referral (narrative)* Diagnostic Procedure Only (Routine) - Authorized Specialty Diagnoses / Procedures Referred By Contac t Referred To Contact US IMAGING Diagnoses Pain in joint, multiple sites Procedures US HAND/WRIST SYNOVIAL SCREEN LEFT US COMPL JOINT R-T W/[place] [address] [phone] [place] [address] Referral ID Status Reason Start Date Expiration Date Visits Requested Visits Authorized [id number] Authorized Auto-Generat ed Referral 04/26/2025 1 1 * Diagnostic Procedure Only (Routine) - Authorized Specialty Diagnoses / Procedures Referred By Contac t Referred To Contact US IMAGING Diagnoses Pain in joint, multiple sites Procedures US HAND/WRIST SYNOVIAL SCREEN RIGHT US COMPL JOINT R-T W/[place] [address] [phone] [place] [address] Referral ID Status Reason Start Date Expiration Date Visits Requested Visits Authorized [id number] Authorized Auto-Generat ed Referral 04/26/2025 1 1 [facility] for referral (narrative)* Diagnostic Procedure Only (Routine) - Closed Specialty Diagnoses / Procedures Referred By Yuni t Referred To Contact US IMAGING Diagnoses Pain in joint, multiple sites Procedures US HAND/WRIST SYNOVIAL SCREEN LEFT US COMPL JOINT R-T W/IMAGE DOCUMENTATION [place] MD [id number] [place], [place] [id number] [place] [address] Referral ID Status Reason Start Date Expiration Date V isits Requested Visits Authorized [id number] Closed Auto-Generate d Referral 03/27/2024 04/26/2025 1 1 * Diagnostic Procedure Only (Routine) - Closed Specialty Diagnoses / Procedures Referred By Yuni willson Referred To Contact US IMAGING Diagnoses Pain in joint, multiple sites Procedures US HAND/WRIST SYNOVIAL SCREEN RIGHT US COMPL JOINT R-T W/[place] [address] [phone] [place] [address] Referral ID Status Reason Start Date Expiration Date V isits Requested Visits Authorized [id number] Closed Auto-Generate d Referral 03/27/2024 04/26/2025 1 1 [facility] for referral (narrative)No reason for referral information [facility]: Reason for visit Narrative* Diagnostic Procedure Only (Routine) - Closed Specialty Diagnoses / Procedures Referred By Yuni t Referred To Contact US IMAGING Diagnoses Lupus (HCC) Procedures US HAND/WRIST SYNOVIAL SCREEN LT US COMPL JOINT R-T W/[place] [address] [phone] [facility] Referral ID Status Reason Start Date Expiration Date V isits Requested Visits Authorized [id number] Closed Auto-Generate d Referral 12/23/2021 01/22/2023 1 1 [facility] for visit Narrative* Diagnostic Procedure Only (Routine) - Closed Specialty Diagnoses / Procedures Referred By Contac t Referred To Contact XR IMAGING Diagnoses Bilateral foot pain Procedures XR FOOT GENERAL 3V AP/LAT/OBL BILATERAL RADEX FOOT COMPLETE MINIMUM 3 VIEWS Rivas Beck [address] [place] [address] [place] [address] Referral ID Status Reason Start Date Expiration Date V isits Requested Visits Authorized [id number] Closed Auto-Generate d Referral 11/06/2022 12/06/2023 1 1 [facility] for visit Narrative* Diagnostic Procedure Only (Urgent) - Closed Specialty Diagnoses / Procedures Referred By Contac t Referred To Contact XR IMAGING Diagnoses Groin pain, right Procedures XR HIP GENERAL 3V PELV/AP/LAT RIGHT RADEX HIP UNILATERAL WITH PELVIS 2-3 VIEWS Anny Iqbal, PA-C [address] [place] [address] [place] [address] Referral ID Status Reason Start Date Expiration Date V isits Requested Visits Authorized [id number] Closed Auto-Generate d Referral 04/02/2022 05/02/2023 1 1 [facility] for visit Narrative* Diagnostic Procedure Only (Routine) - Closed Specialty Diagnoses / Procedures Referred By Contac t Referred To Contact US IMAGING Diagnoses Pain in joint, multiple sites Procedures US HAND/WRIST SYNOVIAL SCREEN LEFT US COMPL JOINT R-T W/[place] [address] [place] [address] [place] [address] Referral ID Status Reason Start Date Expiration Date V isits Requested Visits Authorized [id number] Closed Auto-Generate d Referral 03/27/2024 04/26/2025 1 1 [facility] Summary Purpose Family History No Family History Records Found Relationship Condition Age at Onset Recorded Date/T rolly sister Malignant neoplasm of breast Unknown Advance Directives No Advanced Directives Records FoundDocuments on File Type Date Recorded 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 No January 26, 2021 3:18pm Do you have a Healthcare Power of State Manager? No October 13, 2024 9:03pm Advance Directive Response Recorded Date/ Time Do you have a Healthcare Power of State Manager? No October 13, 2024 9:03pm Chief Complaint [...] To Contact Rajiv Isaac DO [address] [place] [address] Referral ID Status Reason Start Date Expiration Date Visits Re quested Visits Authorized [id number] Closed 1 1 Specialty Diagnoses / Procedures Referred By Contac t Referred To Contact Diagnoses Migraine without aura and without status migrainosus, not intractable Procedures PROVIDER ORDERED FOLLOW UP OFFICE/OUTPATIENT NEW HIGH MDM 60 MINUTES Keiko Maloney APRN.DEICER REPAIRER [address] [place] [address] Referral ID Status Reason Start Date Expiration Date Visits Requested Visits Authorized [id number] Authorized PCP Requested Referral 09/14/2024 1 1 Specialty Diagnoses / Procedures Referred By Contac t Referred To Contact Diagnoses Migraine without aura and without status migrainosus, not intractable Procedures PROVIDER ORDERED FOLLOW UP OFFICE/OUTPATIENT NEW HIGH MDM 60 MINUTES Eddie Wilson, BRAID CUTTER.DEICER REPAIRER [address] [place] [address] Referral ID Status Reason Start Date Expiration Date Visits Requested Visits Authorized [id number] Authorized PCP Requested Referral 07/05/2024 04/04/2025 1 1 Referral ID Status Reason Start Date Expiration Date Visits Requested Visits Authorized [id number] Authorized PCP Requested Referral 01/02/2025 07/05/2025 1 1 Additional Source Comments INFORMATION SOURCE (unrecogn ized section and content) DATE CREATED AUTHOR 12/04/2020 [facility] ([facility]) DATE CREATED AUTHOR AUTHOR'S ORGANIZ ATION 05/02/2024 [facility] DATE CREATED AUTHOR AUTHOR'S ORGANIZ ATION 03/29/2025 [facility] DATE CREATED AUTHOR AUTHOR'S ORGANIZ ATION 04/08/2025 [facility] Source Comments (unrecognize d section and content) In the event this informatio n is protected by the Federal Confidentiality of Alcohol and Drug Abuse Patient Records regulations: The Federal rules restrict any use of the information to criminally investigate or prosecute any alcohol or drug abuse patient.[facility] Center[facility] the event this information is protected by the Federal Confidentiality of Alcohol and Drug Abuse Patient Records regulations: The Federal rules restrict any use of the information to criminally investigate or prosecute any alcohol or drug abuse patient.[facility] CenterIn the event this information is protected by the Federal Confidentiality of Alcohol and Drug Abuse Patient Records regulations: The Federal rules restrict any use of the information to criminally investigate or prosecute any alcohol or drug abuse patient.[facility] CenterIn the event this information is protected by [...] or prosecute any alcohol or drug abuse patient.[facility] CenterIn the event this information is protected by the Federal Confidentiality of Alcohol and Drug Abuse Patient Records regulations: The Federal rules restrict any use of the information to criminally investigate or prosecute any alcohol or drug abuse patient.[facility] CenterIn the event this information is protected by the Federal Confidentiality of Alcohol and Drug Abuse Patient Records regulations: The Federal rules restrict any use of the information to criminally investigate or prosecute any alcohol or drug abuse patient.[facility] CenterIn the event this information is protected by the Federal Confidentiality of Alcohol and Drug Abuse Patient Records regulations: The Federal rules restrict any use of the information to criminally investigate or prosecute any alcohol or drug abuse patient.[facility] CenterIn the event this information is protected by the Federal Confidentiality of Alcohol and Drug Abuse Patient Records regulations: The Federal rules restrict any use of the information to criminally investigate or prosecute any alcohol or drug abuse patient.[facility] CenterIn the event this information is protected by the Federal Confidentiality of Alcohol and Drug Abuse Patient Records regulations: The Federal rules restrict any use of the information to criminally investigate or prosecute any alcohol or drug abuse patient.[facility] CenterIn the event this information is protected by the Federal Confidentiality of Alcohol and Drug Abuse Patient Records regulations: The Federal rules restrict any use of the information to criminally investigate or prosecute any alcohol or drug abuse patient.[facility] CenterIn the event this information is protected by the Federal Confidentiality of Alcohol and Drug Abuse Patient Records regulations: The Federal rules restrict any use of the information to criminally investigate or prosecute any alcohol or drug abuse patient.[facility] CenterIn the event this information is protected by the Federal Confidentiality of Alcohol and Drug Abuse Patient Records regulations: The Federal rules restrict any use of the information to criminally investigate or prosecute any alcohol or drug abuse patient.[facility] CenterIn the event this information is protected by the Federal Confidentiality of Alcohol and Drug Abuse Patient Records regulations: The Federal rules restrict any use of the information to criminally investigate or prosecute any alcohol or drug abuse patient.[facility] CenterIn the event this information is protected by the Federal Confidentiality of Alcohol and Drug Abuse Patient Records regulations: The Federal rules restrict any use of the information to criminally investigate or prosecute any alcohol or drug abuse patient.[facility] CenterIn the event this information is protected by the Federal Confidentiality of Alcohol and Drug Abuse Patient Records regulations: The Federal rules restrict any use of the information to criminally investigate or prosecute any alcohol or drug abuse patient.[facility] CenterIn the event this information is protected by the Federal Confidentiality of Alcohol and Drug Abuse Patient Records regulations: The Federal rules restrict any use of the information to criminally investigate or prosecute any alcohol or drug abuse patient.[facility] CenterIn the event this information is protected by the Federal Confidentiality of Alcohol and Drug Abuse Patient Records regulations: The Federal rules restrict any use of the information to criminally investigate or prosecute any alcohol or drug abuse patient.[facility] CenterIn the event this information is protected by the Federal Confidentiality of Alcohol and Drug Abuse Patient Records regulations: The Federal rules restrict any use of the information to criminally investigate or prosecute any alcohol or drug abuse patient.[facility] CenterIn the event this information is protected by the Federal Confidentiality of Alcohol and Drug Abuse Patient Records regulations: The Federal rules restrict any use of the information to criminally investigate or prosecute any alcohol or drug abuse patient.[facility] CenterIn the event this information is protected by the Federal Confidentiality of Alcohol and Drug Abuse Patient Records regulations: The Federal rules restrict any use of the information to criminally investigate or prosecute any alcohol or drug abuse patient.[facility] CenterIn the event this information is protected by the Federal Confidentiality of Alcohol and Drug Abuse Patient Records regulations: The Federal rules restrict any use of the information to criminally investigate or prosecute any alcohol or drug abuse patient.[facility] CenterIn the event this information is protected by the Federal Confidentiality of Alcohol and Drug Abuse Patient Records regulations: The Federal rules restrict any use of the information to criminally investigate or prosecute any alcohol or drug abuse patient.[facility] CenterIn the event this information is protected by the Federal Confidentiality of Alcohol and Drug Abuse Patient Records regulations: The Federal rules restrict any use of the information to criminally investigate or prosecute any alcohol or drug abuse patient.[facility] CenterIn the event this information is protected by the Federal Confidentiality of Alcohol and Drug Abuse Patient Records regulations: The Federal rules restrict any use of the information to criminally investigate or prosecute any alcohol or drug abuse patient.[facility] CenterIn the event this information is protected by the Federal Confidentiality of Alcohol and Drug Abuse Patient Records regulations: The Federal rules restrict any use of the information to criminally investigate or prosecute any alcohol or drug abuse patient.[facility] CenterIn the event this information is protected by the Federal Confidentiality of Alcohol and Drug Abuse Patient Records regulations: The Federal rules restrict any use of the information to criminally investigate or prosecute any alcohol or drug abuse patient.[facility] CenterIn the event this information is protected by the Federal Confidentiality of Alcohol and Drug Abuse Patient Records regulations: The Federal rules restrict any use of the information to criminally investigate or prosecute any alcohol or drug abuse patient.[facility] CenterIn the event this information is protected by the Federal Confidentiality of Alcohol and Drug Abuse Patient Records regulations: The Federal rules restrict any use of the information to criminally investigate or prosecute any alcohol or drug abuse patient.[facility] CenterIn the event this information is protected by the Federal Confidentiality of Alcohol and Drug Abuse Patient Records regulations: The Federal rules restrict any use of the information to criminally investigate or prosecute any alcohol or drug abuse patient.[facility] CenterIn the event this information is protected by the Federal Confidentiality of Alcohol and Drug Abuse Patient Records regulations: The Federal rules restrict any use of the information to criminally investigate or prosecute any alcohol or drug abuse patient.[facility] CenterIn the event this information is protected by the Federal Confidentiality of Alcohol and Drug Abuse Patient Records regulations: The Federal rules restrict any use of the information to criminally investigate or prosecute any alcohol or drug abuse patient.[facility] CenterIn the event this information is protected by the Federal Confidentiality of Alcohol and Drug Abuse Patient Records regulations: The Federal rules restrict any use of the information to criminally investigate or prosecute any alcohol or drug abuse patient.[facility] CenterIn the event this information is protected by the Federal Confidentiality of Alcohol and Drug Abuse Patient Records regulations: The Federal rules restrict any use of the information to criminally investigate or prosecute any alcohol or drug abuse patient.[facility] CenterIn the event this information is protected by the Federal Confidentiality of Alcohol and Drug Abuse Patient Records regulations: The Federal rules restrict any use of the information to criminally investigate or prosecute any alcohol or drug abuse patient.[facility] CenterIn the event this information is protected by the Federal Confidentiality of Alcohol and Drug Abuse Patient Records regulations: The Federal rules restrict any use of the information to criminally investigate or prosecute any alcohol or drug abuse patient.[facility] CenterIn the event this information is protected by the Federal Confidentiality of Alcohol and Drug Abuse Patient Records regulations: The Federal rules restrict any use of the information to criminally investigate or prosecute any alcohol or drug abuse patient.[facility] CenterIn the event this information is protected by the Federal Confidentiality of Alcohol and Drug Abuse Patient Records regulations: The Federal rules restrict any use of the information to criminally investigate or prosecute any alcohol or drug abuse patient.[facility] CenterIn the event this information is protected by the Federal Confidentiality of Alcohol and Drug Abuse Patient Records regulations: The Federal rules restrict any use of the information to criminally investigate or prosecute any alcohol or drug abuse patient.[facility] CenterIn the event this information is protected by the Federal Confidentiality of Alcohol and Drug Abuse Patient Records regulations: The Federal rules restrict any use of the information to criminally investigate or prosecute any alcohol or drug abuse patient.[facility] CenterIn the event this information is protected by the Federal Confidentiality of Alcohol and Drug Abuse Patient Records regulations: The Federal rules restrict any use of the information to criminally investigate or prosecute any alcohol or drug abuse patient.[facility] CenterIn the event this information is protected by the Federal Confidentiality of Alcohol and Drug Abuse Patient Records regulations: The Federal rules restrict any use of the information to criminally investigate or prosecute any alcohol or drug abuse patient.[facility] CenterIn the event this information is protected by the Federal Confidentiality of Alcohol and Drug Abuse Patient Records regulations: The Federal rules restrict any use of the information to criminally investigate or prosecute any alcohol or drug abuse patient.[facility] CenterIn the event this information is protected by the Federal Confidentiality of Alcohol and Drug Abuse Patient Records regulations: The Federal rules restrict any use of the information to criminally investigate or prosecute any alcohol or drug abuse patient.[facility] CenterIn the event this information is protected by the Federal Confidentiality of Alcohol and Drug Abuse Patient Records regulations: The Federal rules restrict any use of the information to criminally investigate or prosecute any alcohol or drug abuse patient.[facility] CenterIn the event this information is protected by the Federal Confidentiality of Alcohol and Drug Abuse Patient Records regulations: The Federal rules restrict any use of the information to criminally investigate or prosecute any alcohol or drug abuse patient.[facility] CenterIn the event this information is protected by the Federal Confidentiality of Alcohol and Drug Abuse Patient Records regulations: The Federal rules restrict any use of the information to criminally investigate or prosecute any alcohol or drug abuse patient.[facility] CenterIn the event this information is protected by the Federal Confidentiality of Alcohol and Drug Abuse Patient Records regulations: The Federal rules restrict any use of the information to criminally investigate or prosecute any alcohol or drug abuse patient.[facility] CenterIn the event this information is protected by the Federal Confidentiality of Alcohol and Drug Abuse Patient Records regulations: The Federal rules restrict any use of the information to criminally investigate or prosecute any alcohol or drug abuse patient.[facility] CenterIn the event this information is protected by the Federal Confidentiality of Alcohol and Drug Abuse Patient Records regulations: The Federal rules restrict any use of the information to criminally investigate or prosecute any alcohol or drug abuse patient.[facility] CenterIn the event this information is protected by the Federal Confidentiality of Alcohol and Drug Abuse Patient Records regulations: The Federal rules restrict any use of the information to criminally investigate or prosecute any alcohol or drug abuse patient.[facility] CenterIn the event this information is protected by the Federal Confidentiality of Alcohol and Drug Abuse Patient Records regulations: The Federal rules restrict any use of the information to criminally investigate or prosecute any alcohol or drug abuse patient.[facility] CenterIn the event this information is protected by the Federal Confidentiality of Alcohol and Drug Abuse Patient Records regulations: The Federal rules restrict any use of the information to criminally investigate or prosecute any alcohol or drug abuse patient.[facility] CenterIn the event this information is protected by [...] or prosecute any alcohol or drug abuse patient.[facility] CenterIn the event this information is protected by the Federal Confidentiality of Alcohol and Drug Abuse Patient Records regulations: The Federal rules restrict any use of the information to criminally investigate or prosecute any alcohol or drug abuse patient.[facility] CenterIn the event this information is protected by the Federal Confidentiality of Alcohol and Drug Abuse Patient Records regulations: The Federal rules restrict any use of the information to criminally investigate or prosecute any alcohol or drug abuse patient.[facility] CenterIn the event this information is protected by the Federal Confidentiality of Alcohol and Drug Abuse Patient Records regulations: The Federal rules restrict any use of the information to criminally investigate or prosecute any alcohol or drug abuse patient.[facility] CenterIn the event this information is protected by the Federal Confidentiality of Alcohol and Drug Abuse Patient Records regulations: The Federal rules restrict any use of the information to criminally investigate or prosecute any alcohol or drug abuse patient.[facility] CenterIn the event this information is protected by the Federal Confidentiality of Alcohol and Drug Abuse Patient Records regulations: The Federal rules restrict any use of the information to criminally investigate or prosecute any alcohol or drug abuse patient.[facility] CenterIn the event this information is protected by the Federal Confidentiality of Alcohol and Drug Abuse Patient Records regulations: The Federal rules restrict any use of the information to criminally investigate or prosecute any alcohol or drug abuse patient.[facility] CenterIn the event this information is protected by the Federal Confidentiality of Alcohol and Drug Abuse Patient Records regulations: The Federal rules restrict any use of the information to criminally investigate or prosecute any alcohol or drug abuse patient.[facility] CenterIn the event this information is protected by the Federal Confidentiality of Alcohol and Drug Abuse Patient Records regulations: The Federal rules restrict any use of the information to criminally investigate or prosecute any alcohol or drug abuse patient.[facility] CenterIn the event this information is protected by the Federal Confidentiality of Alcohol and Drug Abuse Patient Records regulations: The Federal rules restrict any use of the information to criminally investigate or prosecute any alcohol or drug abuse patient.[facility] CenterIn the event this information is protected by the Federal Confidentiality of Alcohol and Drug Abuse Patient Records regulations: The Federal rules restrict any use of the information to criminally investigate or prosecute any alcohol or drug abuse patient.[facility] CenterIn the event this information is protected by the Federal Confidentiality of Alcohol and Drug Abuse Patient Records regulations: The Federal rules restrict any use of the information to criminally investigate or prosecute any alcohol or drug abuse patient.[facility] CenterIn the event this information is protected by the Federal Confidentiality of Alcohol and Drug Abuse Patient Records regulations: The Federal rules restrict any use of the information to criminally investigate or prosecute any alcohol or drug abuse patient.[facility] CenterIn the event this information is protected by the Federal Confidentiality of Alcohol and Drug Abuse Patient Records regulations: The Federal rules restrict any use of the information to criminally investigate or prosecute any alcohol or drug abuse patient.[facility] CenterIn the event this information is protected by the Federal Confidentiality of Alcohol and Drug Abuse Patient Records regulations: The Federal rules restrict any use of the information to criminally investigate or prosecute any alcohol or drug abuse patient.[facility] CenterIn the event this information is protected by the Federal Confidentiality of Alcohol and Drug Abuse Patient Records regulations: The Federal rules restrict any use of the information to criminally investigate or prosecute any alcohol or drug abuse patient.[facility] CenterIn the event this information is protected by the Federal Confidentiality of Alcohol and Drug Abuse Patient Records regulations: The Federal rules restrict any use of the information to criminally investigate or prosecute any alcohol or drug abuse patient.[facility] CenterIn the event this information is protected by the Federal Confidentiality of Alcohol and Drug Abuse Patient Records regulations: The Federal rules restrict any use of the information to criminally investigate or prosecute any alcohol or drug abuse patient.[facility] CenterIn the event this information is protected by the Federal Confidentiality of Alcohol and Drug Abuse Patient Records regulations: The Federal rules restrict any use of the information to criminally investigate or prosecute any alcohol or drug abuse patient.[facility] CenterIn the event this information is protected by the Federal Confidentiality of Alcohol and Drug Abuse Patient Records regulations: The Federal rules restrict any use of the information to criminally investigate or prosecute any alcohol or drug abuse patient.[facility] CenterIn the event this information is protected by the Federal Confidentiality of Alcohol and Drug Abuse Patient Records regulations: The Federal rules restrict any use of the information to criminally investigate or prosecute any alcohol or drug abuse patient.[facility] CenterIn the event this information is protected by the Federal Confidentiality of Alcohol and Drug Abuse Patient Records regulations: The Federal rules restrict any use of the information to criminally investigate or prosecute any alcohol or drug abuse patient.[facility] CenterIn the event this information is protected by the Federal Confidentiality of Alcohol and Drug Abuse Patient Records regulations: The Federal rules restrict any use of the information to criminally investigate or prosecute any alcohol or drug abuse patient.[facility] CenterIn the event this information is protected by the Federal Confidentiality of Alcohol and Drug Abuse Patient Records regulations: The Federal rules restrict any use of the information to criminally investigate or prosecute any alcohol or drug abuse patient.[facility] CenterIn the event this information is protected by the Federal Confidentiality of Alcohol and Drug Abuse Patient Records regulations: The Federal rules restrict any use of the information to criminally investigate or prosecute any alcohol or drug abuse patient.[facility] CenterIn the event this information is protected by the Federal Confidentiality of Alcohol and Drug Abuse Patient Records regulations: The Federal rules restrict any use of the information to criminally investigate or prosecute any alcohol or drug abuse patient.[facility] CenterIn the event this information is protected by the Federal Confidentiality of Alcohol and Drug Abuse Patient Records regulations: The Federal rules restrict any use of the information to criminally investigate or prosecute any alcohol or drug abuse patient.[facility] CenterIn the event this information is protected by the Federal Confidentiality of Alcohol and Drug Abuse Patient Records regulations: The Federal rules restrict any use of the information to criminally investigate or prosecute any alcohol or drug abuse patient.[facility] CenterIn the event this information is protected by the Federal Confidentiality of Alcohol and Drug Abuse Patient Records regulations: The Federal rules restrict any use of the information to criminally investigate or prosecute any alcohol or drug abuse patient.[facility] CenterIn the event this information is protected by the Federal Confidentiality of Alcohol and Drug Abuse Patient Records regulations: The Federal rules restrict any use of the information to criminally investigate or prosecute any alcohol or drug abuse patient.[facility] CenterIn the event this information is protected by the Federal Confidentiality of Alcohol and Drug Abuse Patient Records regulations: The Federal rules restrict any use of the information to criminally investigate or prosecute any alcohol or drug abuse patient.[facility] CenterIn the event this information is protected by the Federal Confidentiality of Alcohol and Drug Abuse Patient Records regulations: The Federal rules restrict any use of the information to criminally investigate or prosecute any alcohol or drug abuse patient.[facility] CenterIn the event this information is protected by the Federal Confidentiality of Alcohol and Drug Abuse Patient Records regulations: The Federal rules restrict any use of the information to criminally investigate or prosecute any alcohol or drug abuse patient.[facility] CenterIn the event this information is protected by the Federal Confidentiality of Alcohol and Drug Abuse Patient Records regulations: The Federal rules restrict any use of the information to criminally investigate or prosecute any alcohol or drug abuse patient.[facility] CenterIn the event this information is protected by the Federal Confidentiality of Alcohol and Drug Abuse Patient Records regulations: The Federal rules restrict any use of the information to criminally investigate or prosecute any alcohol or drug abuse patient.[facility] CenterIn the event this information is protected by the Federal Confidentiality of Alcohol and Drug Abuse Patient Records regulations: The Federal rules restrict any use of the information to criminally investigate or prosecute any alcohol or drug abuse patient.[facility] CenterIn the event this information is protected by the Federal Confidentiality of Alcohol and Drug Abuse Patient Records regulations: The Federal rules restrict any use of the information to criminally investigate or prosecute any alcohol or drug abuse patient.[facility] CenterIn the event this information is protected by the Federal Confidentiality of Alcohol and Drug Abuse Patient Records regulations: The Federal rules restrict any use of the information to criminally investigate or prosecute any alcohol or drug abuse patient.[facility] CenterIn the event this information is protected by the Federal Confidentiality of Alcohol and Drug Abuse Patient Records regulations: The Federal rules restrict any use of the information to criminally investigate or prosecute any alcohol or drug abuse patient.[facility] CenterIn the event this information is protected by the Federal Confidentiality of Alcohol and Drug Abuse Patient Records regulations: The Federal rules restrict any use of the information to criminally investigate or prosecute any alcohol or drug abuse patient.[facility] CenterIn the event this information is protected by the Federal Confidentiality of Alcohol and Drug Abuse Patient Records regulations: The Federal rules restrict any use of the information to criminally investigate or prosecute any alcohol or drug abuse patient.[facility] CenterIn the event this information is protected by the Federal Confidentiality of Alcohol and Drug Abuse Patient Records regulations: The Federal rules restrict any use of the information to criminally investigate or prosecute any alcohol or drug abuse patient.[facility] CenterIn the event this information is protected by the Federal Confidentiality of Alcohol and Drug Abuse Patient Records regulations: The Federal rules restrict any use of the information to criminally investigate or prosecute any alcohol or drug abuse patient.[facility] CenterIn the event this information is protected by the Federal Confidentiality of Alcohol and Drug Abuse Patient Records regulations: The Federal rules restrict any use of the information to criminally investigate or prosecute any alcohol or drug abuse patient.[facility] Reason for Visit (unrecogniz ed section and [...] SPINE LUMBOSACRAL 2/[place] [address] [place] [id number] [facility] [place] [address] Referral ID Status Reason Start Date Expiration Date V isits Requested Visits Authorized [id number] Closed Auto-Generate d Referral 12/23/2021 01/22/2023 1 [...] NEW HIGH MDM 60 MINUTES Keiko Maloney, BRAID CUTTER.DEICER REPAIRER [address] [id number] Referral ID Status Reason Start Date Expiration Date V isits Requested Visits Authorized [id number] Closed PCP Requested Referral 03/16/2024 09/14/2024 1 [...] NEW HIGH MDM 60 MINUTES Eddie Wilson, BRAID CUTTER.DEICER REPAIRER [phone] [place] [address] Referral ID Status Reason Start Date Expiration Date V isits Requested Visits Authorized [id number] Closed PCP Requested Referral 07/05/2024 04/04/2025 1 1 Reason Onset Date Comments Refill Request 07/15/2024 Reason Comments Recheck Medication follow up Reason Onset Date Comments Refill Request 08/12/2024 Reason Onset Date Comments Refill Request 09/06/2024 Reason Onset Date Comments Refill Request 09/10/2024 Reason Onset Date Comments Refill Request 09/16/2024 Reason Comments ER F/U [facility] Right hand cat b ite x3 days Reason Comments Recheck 3 month follow up Reason Comments Recheck Cellulitis follow up Reason Onset Date Comments Refill Request 11/04/2024 Reason Onset Date Comments Refill Request 11/14/2024 Reason Comments CARD Follow Up Annual Reason Comments Recheck 4 week follow up [facility] Reason Comments Recheck 4 week follow up Specialty Diagnoses / Procedures Referred By Yuni willson Referred To Contact INTERNAL MEDICINE Diagnoses All Medically Necessary Procedures [place] [address] [place] [address] Phone: tel: fax: Internal Medicine [address] [address] Phone: tel: fax: Referral ID Status Reason Start Date Expiration Date V isits Requested Visits Authorized [id number] New Request 12/21/2024 03/21/2025 1 1 Reason Onset Date Comments Refill Request 01/27/2025 Reason Onset Date Comments Refill Request 01/30/2025 Care Teams (unrecognized sec tion and content) Personal Computer Network Engineer Relationship Specialty Start Date End Date David Chicas MD [address] [place], [place] [id number] PCP - General Internal Medicine 09/18/16 Personal Computer Network Engineer Relationship Specialty Start Date End Date David Chicas MD [address] [place] [address] PCP - General Internal Medicine 09/18/16 Personal Computer Network Engineer Relationship Specialty Start Date End Date David Chicas MD [address] [place] [address] PCP - General Internal Medicine 09/18/16 Personal Computer Network Engineer Relationship Specialty Start Date End Date David Chicas MD [address] [place] [address] PCP - General Internal Medicine 09/18/16 Personal Computer Network Engineer Relationship Specialty Start Date End Date David Chicas MD [address] [facility] [place] [address] PCP - General Internal Medicine 09/18/16 Personal Computer Network Engineer Relationship Specialty Start Date End Date David Chicas MD [address] [place] [address] PCP - General Internal Medicine 09/18/16 Personal Computer Network Engineer Relationship Specialty Start Date End Date David Chicas MD [address] [facility] [place] [address] PCP - General Internal Medicine 09/18/16 Personal Computer Network Engineer Relationship Specialty Start Date End Date David Chicas MD [address] [facility] [place] [address] PCP - General Internal Medicine 09/18/16 Personal Computer Network Engineer Relationship Specialty Start Date End Date David Chicas MD [address] [facility] [place] [address] PCP - General Internal Medicine 09/18/16 Personal Computer Network Engineer Relationship Specialty Start Date End Date David Chicas MD [address] [facility] [place] [address] PCP - General Internal Medicine 09/18/16 Personal Computer Network Engineer Relationship Specialty Start Date End Date David Chicas MD [address] [place] [address] PCP - General Internal Medicine 09/18/16 Personal Computer Network Engineer Relationship Specialty Start Date End Date David Chicas MD [address] [place] [address] PCP - General Internal Medicine 09/18/16 Personal Computer Network Engineer Relationship Specialty Start Date End Date David Chicas MD [address] [facility] [place] [address] PCP - General Internal Medicine 09/18/16 Personal Computer Network Engineer Relationship Specialty Start Date End Date David Chicas MD [address] [facility] [place] [address] PCP - General Internal Medicine 09/18/16 Personal Computer Network Engineer Relationship Specialty Start Date End Date David Chicas MD [address] [facility] [place] [address] PCP - General Internal Medicine 09/18/16 Personal Computer Network Engineer Relationship Specialty Start Date End Date David Chicas MD [address] [facility] [place] [address] PCP - General Internal Medicine 09/18/16 Personal Computer Network Engineer Relationship Specialty Start Date End Date David Chicas MD [address] [facility] [place] [address] PCP - General Internal Medicine 09/18/16 Personal Computer Network Engineer Relationship Specialty Start Date End Date David Chicas MD [address] [facility] [place] [address] PCP - General Internal Medicine 09/18/16 Personal Computer Network Engineer Relationship Specialty Start Date End Date David Chicas MD [address] [facility] [place] [address] PCP - General Internal Medicine 09/18/16 Personal Computer Network Engineer Relationship Specialty Start Date End Date David Chicas MD [address] [facility] [place] [address] PCP - General Internal Medicine 09/18/16 Personal Computer Network Engineer Relationship Specialty Start Date End Date David Chicas MD [address] [facility] [place] [address] PCP - General Internal Medicine 09/18/16 Personal Computer Network Engineer Relationship Specialty Start Date End Date David Chicas MD [address] [place] [address] PCP - General Internal Medicine 09/18/16 Personal Computer Network Engineer Relationship Specialty Start Date End Date David Chicas MD [address] [place] [address] PCP - General Internal Medicine 09/18/16 Personal Computer Network Engineer Relationship Specialty Start Date End Date David Chicas MD [address] [place] [address] PCP - General Internal Medicine 09/18/16 Personal Computer Network Engineer Relationship Specialty Start Date End Date David Chicas MD [address] [place] [address] PCP - General Internal Medicine 09/18/16 Team Status: Active Member Role Status Dates Dr. David Chicas MD Primary Care Provider Active Team Status: Inactive Member Role Status Dates Dr. David Chicas MD Primary Care Provider Active Dr. Erick Rose DO Attending Provider, Referring Pro vider Active Personal Computer Network Engineer Relationship Specialty Start Date End Date David Chicas MD [address] [place] [address] PCP - General Internal Medicine 09/18/16 Personal Computer Network Engineer Relationship Specialty Start Date End Date David Chicas MD [address] [place], [place] [address] PCP - General Internal Medicine 09/18/16 Team Status: Inactive Member Role Status Dates Dr. David Chicas MD Primary Care Provider Active Dr. Elvia Bowers MD Attending Provider, Referring Pr ovider Active Personal Computer Network Engineer Relationship Specialty Start Date End Date David Chicas MD [address] [facility] [place] [address] PCP - General Internal Medicine 09/18/16 Personal Computer Network Engineer Relationship Specialty Start Date End Date David Chicas MD [address] [facility] [place] [address] PCP - General Internal Medicine 09/18/16 Personal Computer Network Engineer Relationship Specialty Start Date End Date David Chicas MD [address] [facility] [place] [address] PCP - General Internal Medicine 09/18/16 Personal Computer Network Engineer Relationship Specialty Start Date End Date David Chicas MD [address] [facility] [place] [address] PCP - General Internal Medicine 09/18/16 Personal Computer Network Engineer Relationship Specialty Start Date End Date David Chicas MD [address] [facility] [place] [address] PCP - General Internal Medicine 09/18/16 Personal Computer Network Engineer Relationship Specialty Start Date End Date David Chicas MD [address] [facility] [place] [address] PCP - General Internal Medicine 09/18/16 Personal Computer Network Engineer Relationship Specialty Start Date End Date David Chicas MD [address] [facility] [place] [address] PCP - General Internal Medicine 09/18/16 Personal Computer Network Engineer Relationship Specialty Start Date End Date David Chicas MD [address] [facility] [place] [address] PCP - General Internal Medicine 09/18/16 Personal Computer Network Engineer Relationship Specialty Start Date End Date David Chicas MD [address] [place] [address] PCP - General Internal Medicine 09/18/16 Personal Computer Network Engineer Relationship Specialty Start Date End Date David Chicas MD [address] [place] [address] PCP - General Internal Medicine 09/18/16 Personal Computer Network Engineer Relationship Specialty Start Date End Date David Chicas MD [address] [place] [address] PCP - General Internal Medicine 09/18/16 Personal Computer Network Engineer Relationship Specialty Start Date End Date David Chicas MD [address] [place] [address] PCP - General Internal Medicine 09/18/16 Personal Computer Network Engineer Relationship Specialty Start Date End Date David Chicas MD [address] [place] [address] PCP - General Internal Medicine 09/18/16 Personal Computer Network Engineer Relationship Specialty Start Date End Date David Chicas MD [address] [place] [address] PCP - General Internal Medicine 09/18/16 Personal Computer Network Engineer Relationship Specialty Start Date End Date David Chicas MD [address] [place] [address] PCP - General Internal Medicine 09/18/16 Jenny Lu PA-C [address] [place] [address] Fire Extinguisher Charger Family Medicine 05/07/24 Mattie Somers APRN.DEICER REPAIRER [address] [facility] [place] [address] Fire Extinguisher Charger Internal Medicine 05/07/24 Louann Damon PA-C [address] [place] [address] Fire Extinguisher Charger Family Medicine 05/07/24 Personal Computer Network Engineer Relationship Specialty Start Date End Date David Chicas MD [address] [facility] [place] [address] PCP - General Internal Medicine 09/18/16 Jenny Lu PA-C [address] [place] [address] Fire Extinguisher Charger Family Medicine 05/07/24 Mattie Somers APRN.DEICER REPAIRER [address] [facility] [place] [place] [address] Fire Extinguisher Charger Internal Medicine 05/07/24 Louann Damon PA-C [address] [place] [address] Fire Extinguisher Charger Family Medicine 05/07/24 Personal Computer Network Engineer Relationship Specialty Start Date End Date David Chicas MD [address] [place] [address] PCP - General Internal Medicine 09/18/16 Jenny Lu PA-C [address] [place] [address] Fire Extinguisher Charger Family Medicine 05/07/24 Mattie Somers APRN.DEICER REPAIRER [address] [facility] [place] [address] Fire Extinguisher Charger Internal Medicine 05/07/24 Louann Damon PA-C [address] [place] [address] Fire Extinguisher Charger Family Medicine 05/07/24 Personal Computer Network Engineer Relationship Specialty Start Date End Date David Chicas MD [address] [place] [address] PCP - General Internal Medicine 09/18/16 Jenny Lu PA-C [address] [place] [address] Fire Extinguisher Charger Family Medicine 05/07/24 Mattie Somers APRN.DEICER REPAIRER [address] [place] [address] Fire Extinguisher Charger Internal Medicine 05/07/24 Louann Damon PA-C [address] [place] [address] Fire Extinguisher Charger Family [facility] 05/07/24 Personal Computer Network Engineer Relationship Specialty Start Date End Date David Chicas MD [address] [place] [address] PCP - General Internal Medicine 09/18/16 Jenny Lu PA-C [address] [place] [address] Fire Extinguisher Charger Family Medicine 05/07/24 Mattie Somers APRN.DEICER REPAIRER [address] [place] [address] Fire Extinguisher Charger Internal Medicine 05/07/24 Louann Damon PA-C [address] [facility] [place] [address] Fire Extinguisher Charger Family [facility] 05/07/24 Personal Computer Network Engineer Relationship Specialty Start Date End Date David Chicas MD [address] [facility] [place] [address] PCP - General Internal Medicine 09/18/16 Jenny Lu PA-C [address] [place] [address] Fire Extinguisher Charger Family Medicine 05/07/24 Mattie Somers APRN.DEICER REPAIRER [address] [place] [address] Fire Extinguisher Charger Internal Medicine 05/07/24 Louann Damon PA-C [address] [place] [address] Fire Extinguisher Charger Family [facility] 05/07/24 Personal Computer Network Engineer Relationship Specialty Start Date End Date David Chicas MD [address] [place] [address] PCP - General Internal Medicine 09/18/16 Jenny Lu PA-C [address] [place] [address] Fire Extinguisher Charger Family Medicine 05/07/24 Mattie Somers APRN.DEICER REPAIRER [address] [place] [address] Fire Extinguisher Charger Internal Medicine 05/07/24 Louann Damon PA-C [address] [place] [address] Fire Extinguisher Charger Family Medicine 05/07/24 Personal Computer Network Engineer Relationship Specialty Start Date End Date David Chicas MD [address] [place] [address] PCP - General Internal Medicine 09/18/16 Jenny Lu PA-C [address] [place] [address] Fire Extinguisher Charger Family Medicine 05/07/24 Mattie Somers APRN.DEICER REPAIRER [address] [place] [address] Fire Extinguisher Charger Internal Medicine 05/07/24 Louann Damon PA-C [address] [place] [address] Fire Extinguisher Charger Family Medicine 05/07/24 Personal Computer Network Engineer Relationship Specialty Start Date End Date David Chicas MD [address] [place] [address] PCP - General Internal Medicine 09/18/16 Jenny Lu PA-C [address] [place] [address] Fire Extinguisher Charger Family Medicine 05/07/24 Mattie Somers APRN.DEICER REPAIRER [address] [place] [address] Fire Extinguisher Charger Internal Medicine 05/07/24 Louann Damon PA-C [address] [place] [address] Fire Extinguisher Charger Family Medicine 05/07/24 Personal Computer Network Engineer Relationship Specialty Start Date End Date David Chicas MD [address] [facility] [place] [address] PCP - General Internal Medicine 09/18/16 Jenny Lu PA-C [address] [place] [address] Fire Extinguisher Charger Family Medicine 05/07/24 Mattie Somers APRN.DEICER REPAIRER [address] [place] [address] Fire Extinguisher Charger Internal Medicine 05/07/24 Louann Damon PA-C [address] [place] [address] Fire Extinguisher Charger Family Medicine 05/07/24 Personal Computer Network Engineer Relationship Specialty Start Date End Date David Chicas MD [address] [place] [address] PCP - General Internal Medicine 09/18/16 Mattie Somers APRN.DEICER REPAIRER [address] [facility] [place] [address] Fire Extinguisher Charger Internal Medicine 05/07/24 Personal Computer Network Engineer Relationship Specialty Start Date End Date David Chicas MD [address] [place] [address] PCP - General Internal Medicine 09/18/16 Mattie Somers APRN.DEICER REPAIRER [address] [place] [address] Fire Extinguisher Charger Internal Medicine 05/07/24 Personal Computer Network Engineer Relationship Specialty Start Date End Date David Chicas MD [address] [facility] [place], [place] [address] PCP - General Internal Medicine 09/18/16 Mattie Somers APRN.DEICER REPAIRER [address] [facility] [place], [place] [address] Fire Extinguisher Charger Internal Medicine 05/07/24 Personal Computer Network Engineer Relationship Specialty Start Date End Date David Chicas MD [address] [facility] [place] [address] PCP - General Internal Medicine 09/18/16 Mattie Somers APRN.DEICER REPAIRER [address] [facility] [place] [address] Fire Extinguisher Charger Internal Medicine 05/07/24 Team Status: Inactive Member Role Status Dates Dr. David Chicas MD Primary Care Provider Active Start: June 21, 2024 End: June 21, 2024 Dr. David Chicas MD Referring Provider Active Start: June 21, 2024 End: June 21, 2024 Patricia Costa SPINNING LATHE OPERATOR HYDRAULIC, SPINNING LATHE OPERATOR HYDRAULIC-C Attending Provider Active Start: June 21, 2024 End: June 21, 2024 Team Status: Inactive Member Role Status Dates Dr. David Chicas MD Primary Care Provider Active Start: October 13, 2024 End: October 13, 2024 Dr. Rajiv Ni DO Emergency Provider Active Start: October 13, 2024 End: October 13, 2024 Personal Computer Network Engineer Relationship Specialty Start Date End Date David Chicas MD [address] [facility], [place] [address] PCP - General Internal Medicine 09/18/16 Mattie Somers APRN.DEICER REPAIRER [address] [facility], [place] [address] Fire Extinguisher Charger Internal Medicine 05/07/24 Personal Computer Network Engineer Relationship Specialty Start Date End Date David Chicas MD [address] [facility] [place] [address] PCP - General Internal Medicine 09/18/16 Mattie Somers APRN.DEICER REPAIRER [address] [facility] [place] [address] Fire Extinguisher Charger Internal Medicine 05/07/24 Personal Computer Network Engineer Relationship Specialty Start Date End Date David Chicas MD [address] [place] [address] PCP - General Internal Medicine 09/18/16 Mattie Somers APRN.DEICER REPAIRER [address] [facility] [place] [address] Fire Extinguisher Charger Internal Medicine 05/07/24 Personal Computer Network Engineer Relationship Specialty Start Date End Date David Chicas MD [address] [facility] [place] [address] PCP - General Internal Medicine 09/18/16 Mattie Somers APRN.DEICER REPAIRER [address] [place] [address] Fire Extinguisher Charger Internal Medicine 05/07/24 Personal Computer Network Engineer Relationship Specialty Start Date End Date David Chicas MD [address] [facility] [place] [address] PCP - General Internal Medicine 09/18/16 Mattie Somers APRN.DEICER REPAIRER [address] [place] [address] Fire Extinguisher Charger Internal Medicine 05/07/24 Team Status: Inactive Member [...] 2024 End: November 14, 2024 Patricia Costa SPINNING LATHE OPERATOR HYDRAULIC, SPINNING LATHE OPERATOR HYDRAULIC-C Attending Provider Active Start: November 14, 2024 End: November 14, 2024 Personal Computer Network Engineer Relationship Specialty Start Date End Date David Chicas MD [address] [facility] [place] [address] PCP - General Internal Medicine 09/18/16 Mattie Somers APRN.DEICER REPAIRER [address] [facility] [place] [place] [address] Fire Extinguisher Charger Internal Medicine 05/07/24 Personal Computer Network Engineer Relationship Specialty Start Date End Date David Chicas MD [address] [facility] [place] [address] PCP - General Internal Medicine 09/18/16 Mattie Somers APRN.DEICER REPAIRER [address] [facility] [address] Fire Extinguisher Charger Internal Medicine 05/07/24 Personal Computer Network Engineer Relationship Specialty Start Date End Date David Chicas MD [address] [facility] [place] [address] PCP - General Internal Medicine 09/18/16 Mattie Somers APRN.DEICER REPAIRER [address] [facility] [place] [place] [address] Fire Extinguisher Charger Internal Medicine 05/07/24 Personal Computer Network Engineer Relationship Specialty Start Date End Date David Chicas MD [address] [place] [address] PCP - General Internal Medicine 09/18/16 Mattie Somers APRN.DEICER REPAIRER [address] [place] [address] Fire Extinguisher Charger Internal Medicine 05/07/24 Personal Computer Network Engineer Relationship Specialty Start Date End Date David Chicas MD [address] [place] [address] PCP - General Internal Medicine 09/18/16 Lizbet, CLIFTON Phelps.DEICER REPAIRER [address] [facility] [place] [address] Fire Extinguisher Charger Internal Medicine 05/07/24 Personal Computer Network Engineer Relationship Specialty Start Date End Date David Chicas MD [address] [place] [address] PCP - General Internal Medicine 09/18/16 Mattie Somers APRN.DEICER REPAIRER [address] [place] [address] Fire Extinguisher Charger Internal Medicine 05/07/24 Personal Computer Network Engineer Relationship Specialty Start Date End Date David Chicas MD [address] [facility] [place] [address] PCP - General Internal Medicine 09/18/16 Mattie Somers APRN.DEICER REPAIRER [address] [facility] [place] [address] Fire Extinguisher Charger Internal Medicine 05/07/24 Team Status: Active Member [...] 2024 End: November 14, 2024 Patricia Costa SPINNING LATHE OPERATOR HYDRAULIC, SPINNING LATHE OPERATOR HYDRAULIC-C Attending Provider Active Start: November 14, 2024 End: November 14, 2024 Team Status: Inactive Member Role/Relationship Status Dates Dr. David Chicas MD Primary Care Provider Active Start: January 30, 2025 End: January 30, 2025 Patricia Costa SPINNING LATHE OPERATOR HYDRAULIC, SPINNING LATHE OPERATOR HYDRAULIC-C Attending Provider Active Start: January 30, 2025 End: January 30, 2025 Personal Computer Network Engineer Relationship Specialty Start Date End David Chicas MD [address] [place] [address] PCP - General Internal Medicine 09/18/16 Mattie Somers APRN.CNP [address] [place] [address] [facility] Internal Medicine 05/07/24 Team Status: Active Member Role/Relationship Status Dates Dr. David Chicas MD Primary care physician Active Team Status: Inactive Member Role/Relationship Status Dates Dr. David Chicas MD Primary care physician Active Start: November 14, 2024 End: November 14, 2024 Dr. David Chicas MD Referring Provider Active Start: November 14, 2024 End: November 14, 2024 Patricia Costa SPINNING LATHE OPERATOR HYDRAULIC, SPINNING LATHE OPERATOR HYDRAULIC-C Attending physician Active Start: November 14, 2024 End: November 14, 2024 Team Status: Inactive Member Role/Relationship Status Dates Dr. aDvid Chicas MD Primary care physician Active Start: January 30, 2025 End: January 30, 2025 Patricia Costa SPINNING LATHE OPERATOR HYDRAULIC, SPINNING LATHE OPERATOR HYDRAULIC-C Attending physician Active Start: January 30, 2025 [...] BE BASED ON THE PRIMARY CLINICAL RECORDS. [employer] provides no warranty or guarantee of the accuracy or completeness of information in this document.
[2025-05-13] MEDS: Orphenadrine 100 MG Tablet PO (12:21)
[2025-05-13 12:22] VITALS: BMI 40.1
--- NOTE | 2025-05-13 12:30 | RAD_ITS ---
PROCEDURE: HIP, UNI W/ PELVIS 2-3 VIEWS 05/13/2025 REASON FOR EXAM: RIGHT HIP PAIN TECHNIQUE: Procedure Code: RAD Modality: DX Procedure: HIP, UNI W/ PELVIS 2-3 VIEWS Laterality: Right COMPARISON: 02/12/2025 and 07/19/2019. FINDINGS: No acute fracture or dislocation. 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 Degenerative changes are noted within the visualized lower lumbar spine. A vertebroplasty at L3 is new since the previous studies. RAD/HIP, UNI W/ Pelvis 2-3 Views IMPRESSION: As above. Reading Location: [id number]
[2025-05-13 13:25] VITALS: BP 132/51; PULSE 78; RESP 15; TEMP 36.2; O2SAT 100
== END 2025-05-13 13:29 | disposition home or self-care (01) ==
PROVIDERS: Emergency Provider Emergency Medicine; PCP Internal Medicine; Visit Provider Emergency Medicine
DX: S76.311A Strain of muscle, fascia and tendon of the posterior muscle group at thigh level, right thigh, initial encounter (principal); Z87.891 Personal history of nicotine dependence; E66.9 Obesity, unspecified; W19.XXXA Unspecified fall, initial encounter
CPT/HCPCS: 73502; 99283